=== PATIENT | female | born 1995 | race Native Hawaiian/Other Pacific Islander ===

== ENCOUNTER 2021-09-18 14:01 | Emergency (ER) | payer OTHER, SELFPAY ==
[2021-09-18 14:13] VITALS: BP 115/72; PULSE 74; RESP 16; TEMP 36.7; O2SAT 97; BMI 32.9
--- NOTE | 2021-09-18 14:32 | CRLHL7_ITS ---
For Patients: As a result of the Century Cures Act, medical imaging exams and procedure reports are released immediately into your electronic medical record. You may view this report before your referring provider. If you have questions, please contact your health care provider. INDICATION: 38 WEEKS , DUE 10/02/21, FELL DOWN STAIRS. R/O ABRUPTION/TRAUMA TO COMPARISON: 08/23/2021 TECHNIQUE: Limited real time dumont scale imaging of the fetus was performed. FINDINGS: Sonographic imaging demonstrates a single living intrauterine gestation. Fetus demonstrates a regular cardiac rate of 146 beats per minute. Fetus has a vertex position. The placenta lies right posterior. Amniotic fluid volume appears normal and there is a single deepest vertical pocket: 3.5 cm. IMPRESSION: No evidence of placental abruption. Dictated by Heri Astudillo MD @ 09/18/2021 3:46:21 PM (Electronically Signed)
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
[2021-09-18 16:35] VITALS: BP 117/72; PULSE 71; RESP 16; O2SAT 98
== END 2021-09-18 16:48 | disposition home or self-care (01) ==
PROVIDERS: Emergency Provider Family Medicine
DX: S39.91XA Unspecified injury of abdomen, initial encounter (principal); Z3A.37 37 weeks gestation of pregnancy; W10.9XXA Fall (on) (from) unspecified stairs and steps, initial encounter
CPT/HCPCS: 76815; 99283; 99284

== ENCOUNTER 2021-09-23 20:51 | Inpatient (IN) | payer OTHER, SELFPAY ==
[2021-09-23] VITALS (16 sets, daily range): BP systolic 117–134; BP diastolic 57–80; PULSE 55–96; RESP 16–18; TEMP 36.8; O2SAT 99; BMI 36.4
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
[2021-09-23 21:48] LABS: SARS PCR* Negative SARS-CoV-2 (Negative)
--- NOTE | 2021-09-23 22:36 | PM.OBPRCVD ---
Procedure Delivery date: 09/23/21 Procedure Done: Global Events: Covid Infection in Intrapartal Events: Other (shoulder dystocia: 45 seconds) Delivery monitor: external FHT Route of delivery: Laceration description: Perineal - 1st Degree Delivery repair: other (none needed) Estimated blood loss (mL): 25 Anesthesia type: None Disposition: floor Narrative: Ava is a 25-year-old 3 para 1011 admitted at 38 weeks 5 days gestation with spontaneous onset of labor. On admission she was 7 cm dilated with bulging bag of water. She declined artificial rupture of membranes. Spontaneous rupture membranes occurred at 9:27 p.m. with clear fluid noted. Anesthesia: None Augmentation: None Labor onset: 09/23/2020 at 6:30 p.m. Complete dilation on 09/23/2020 at 9:55 p.m. Pushing started at 9:55 p.m. on 09/23/2020 heart rate during 2nd stage: Category 2 and reassuring. The infant's head delivered at 10:02 p.m. with delivery of the body at 10:03 p.m. Shoulder dystocia occurred which was relieved with Carrillo King positioning and delivery of the posterior shoulder. Total time of dystocia 45 seconds. The infant's cord was immediately clamped and cut and the taken to the warmer for stabilization. There were no nuchal cords. Apgars: 8 at 1 minute, 9 at 5 minutes, respectively. The infant was handed back to the mother for skin to skin contact before the 5 minute . Weight: 8#8oz = LGA. Laceration: First-degree perineal that did not require repair. Blood loss: 25 mL, estimated. Mother and infant were stable at the time of this note. Ava is planning on breast-feeding. Infant Infant Gender: Male presentation: vertex Placental Delivery Description: Spontaneous Cord Description: 3 Vessels OB Vag Delivery Procedures Additional Procedures ECV: No Cook Catheter Insertion: No NST: No D&C: No Laceration Repair: No Tubal Ligation : No Other: No
[2021-09-24] VITALS (10 sets, daily range): BP systolic 101–121; BP diastolic 65–81; PULSE 55–92; RESP 16–18; TEMP 36.6–36.9; O2SAT 98–99
[2021-09-24] MEDS: IBUPROFEN 600 MG TABLET PO ×4 (00:38→18:10)
[2021-09-24] MEDS: OXYTOCIN 10 UNIT/ML INJ IM (00:40)
[2021-09-24] MEDS: LIDOCAINE 1 % PF 30 ML INJECTION (00:40)
[2021-09-24] MEDS: ACETAMINOPHEN 500 MG TABLET 1000 MG PO ×4 (03:40→21:56)
[2021-09-24 07:02] LABS: Hemoglobin* 10.7 gm/dL (12.0-16.0)
--- NOTE | 2021-09-24 07:47 | PM.OBPNVD1 ---
OB - PN:Subj Subjective Date Seen: 09/24/21 Interval history: Ava is a 25yo status post vaginal delivery at 38 5/7 weeks gestation on 09/23. The patient feels well. She has no new complaints. Urinary output is adequate and she is voiding without difficulty. Has Small amount of rubra lochia. She is ambulating well. Patient comments OB post-: no complaints, pain well controlled, perineal pain (Tenderness), tolerating diet and flatus present [place] infant status: and doing well feeding status: exclusively OB - PN: Obj Exam Physical Exam: Vital signs: Temp Pulse Resp BP Pulse Ox 98.4 F 55 L 16 116/78 98 09/24/21 07:24 09/24/21 07:24 09/24/21 07:24 09/24/21 07:24 09/24/21 07:24 Constitutional: Constitutional: no acute distress Routine HEENT Exam: Head: Present atraumatic and normal inspection Routine Neck Exam: Neck: Present full ROM Routine Respiratory Exam: Respiratory: Present CTA bilaterally Routine Cardiovascular Exam: Cardiovascular: Present RRR Routine Abdominal Exam: Abdominal: Present normal bowel sounds and soft Fundus: Present firm (u/u) Routine Extremities Exam: Extremities: Present normal inspection Routine Skin Exam: Skin: Present intact Routine Psychiatric Exam: Psychiatric: Present normal affect and normal thought process OB - PN: Obj Data Labs Labs: Laboratory Results - last 24 hr 09/23/21 09/24/21 20:29 06:51 Hgb 10.7 L SARS-CoV-2 (PCR) Negative SARS-CoV-2 OB - PN: A/P Vaginal Delivery Assessment and Plan (1) care and examination immediately after delivery: Status: Acute (2) Status post vaginal delivery: Status: Acute (3) Lactating mother: Status: Acute Plan 1. Continue routine postoperative cares. 2. May see if desired. 3. Anticipate discharge tomorrow Plan day: 1 Plan: routine care
[2021-09-24] MEDS: DOCUSATE SODIUM 100 MG CAPSULE PO (21:56)
[2021-09-25 00:54] VITALS: BP 97/50; PULSE 60; RESP 14; TEMP 36.6; O2SAT 96
[2021-09-25] MEDS: IBUPROFEN 600 MG TABLET PO (01:19)
[2021-09-25] MEDS: ACETAMINOPHEN 500 MG TABLET 1000 MG PO ×2 (04:12→10:12)
--- NOTE | 2021-09-25 07:55 | PM.OBDSVD1 ---
DS: Providers Provider Time Seen by Provider: 08:11 Date Seen: 09/25/21 Date of admission: 09/23/21 20:51 Primary care physician: Not a Local Provider Admitting Clinician: Rhina Moralez MD Attending Physician on discharge: Rhina Moralez MD Date of Discharge: 09/25/21 DS: Diagnosis Discharge Diagnosis (1) care and examination immediately after delivery: Status: Acute (2) Status post vaginal delivery: Status: Acute (3) Lactating mother: Status: Acute Exam Const: Vital Signs, click to edit/add: Vital Signs - 24 hr 09/24/21 12:04 09/24/21 16:10 09/24/21 19:27 Temperature 97.8 F 98.4 F 97.8 F Pulse Rate [Pulse Oximeter] 84 88 Respiratory Rate 16 16 16 Blood Pressure [Ri ght Arm] 116/81 121/80 101/71 Pulse Oximetry 99 98 09/25/21 00:54 Temperature 97.9 F Pulse Rate [Pulse Oximeter] 60 Respiratory Rate 14 Blood Pressure [Ri ght Arm] 97/50 L Pulse Oximetry 96 Documenting provider has reviewed patient's vital signs: yes Common normals: no apparent distress, average body habitus, oriented x3, no limitations, healthy appearing, alert and well nourished General appearance: cooperative HENMT: Common normals: normocephalic Head and scalp: normocephalic Neck & C-Spine: Common normals: full ROM Chest: Common normals: inspection of chest normal Chest: symmetrical chest wall rise Resp: Common normals: normal respiratory effort, no retractions, no use of accessory muscles and clear to auscultation bilaterally Auscultation: clear to auscultation bilaterally Cardio: Common normals: regular rate and regular rhythm Rate: regular rate Rhythm: regular rhythm GI: Common normals: Normal to inspection, nondistended, normoactive bowel sounds present and soft to palpation Palpation: soft : Uterus: U/U Lochia: small Extremity: Common normals: normal to inspection, full ROM and no pedal edema Neuro: Common normals: oriented x3 Sensorium/orientation: alert OB - DS: Summary Hospital Course Hospital Course: The patient is a 25 year old G 3 P 2 at 38.6 weeks gestation that was admitted to the Center on 09/23/21 for labor. She had a vaginal delivery complicated by a shoulder dystocia. She delivered a viable male infant. She is breast feeding, which she states is going well. the patient has done well. She is planning paertner vasectomy or tubal ligation for PP control. Peripartum Data delivery method: Vaginal Laceration description: Vaginal - 1st Degree complications: none [place] Gender: Male Status at Discharge Functional status at discharge: independent ambulation Overall status at discharge: patient is back to baseline Time Spent with Patient Time attestation: Total time spent providing and/or coordinating discharge services: Time spent: Less than 30 minutes Discharge Plan Discharge Disposition: Home, Self-Care Date of Admission: 09/23/21 20:51 Attending Provider on Discharge: Elva Chawla Primary Care Provider: Provider,Not a Local Condition: Stable Anticipated Discharge Date/Time: 09/25/21 12:00 Discharge Medications: New docusate sodium 100 mg Capsule 100 mg PO BID PRN (Reason: constipation) 30 Days Qty: 100 0RF ibuprofen 600 mg Tablet 600 mg PO Q6H PRN10 Days Qty: 30 0RF Continued prenat.vits,jaylon,rre-rstr-jcyxv Tablet 1 tab PO QDAY 0RF Discontinued ferrous sulfate 325 mg (65 mg iron) tablet 325 mg PO QDAY 0RF Discharge Orders: Discharge Order (Routine); Ordered 09/23/21 Ordered By: Rhina Moralez Patient Education: OB Over the Counter Medication Information, OB Vaginal/Breast Feeding Activity Restrictions/Additional Instructions: Discharge instructions were reviewed with the patient including signs and symptoms of infection and home going medications. Lifting Restrictions: none Off Work or School for 6 weeks. Symptoms to report to doctor: -Bleeding that saturates more than one pad per hour ?-Passing clots larger than the size of a golf ball ?-Pain not relieved by prescribed medication ?-Fever above 100.4 degrees Fahrenheit ?-A foul vaginal odor ?-Difficulty in emotions, mood and functions ?-Thoughts of hurting yourself and/or ?-Painful, reddened area in your breast ?-Any drainage, redness or tenderness in your IV/epidural site ?-Severe headache that doesn't improve after taking medications ?-Changes in vision, including temporary loss of vision, blurred vision, and/or light sensitivity ?-Upper abdominal pain (usually under ribs on the right side) ?-Decrease in urination or painful, frequent urinating ?-Chest pain ?-Shortness of breath ?-Tenderness or pain with redness and/swelling in the calf(s) of your leg Follow Up with any Women's Health Provider in 2 weeks (optional visit) and in 6 weeks (physical exam) at any [facility] Clinic Location. consultation services are available to all mothers and babies for the first year after delivery.? To make an appointment, please call [phone]. Activity Level: Activity as Tolerated Discharge Diet: Regular Follow Up Appointments: Rhina Moralez MD [Staff Physician] - Provider,Not a Local [Primary Care Provider] - None (To any Women's Health Provider at 2 and 6 weeks .) Forms: [email or web address] Info Instructions
[2021-09-25 07:59] VITALS: BP 114/77; PULSE 60; RESP 16; TEMP 36.6; O2SAT 97
--- OUTSIDE RECORDS SUMMARY | 2021-10-01 16:48 | XMS_ITS | Encounter Summary ---
:1995 Author Organization [place] Address [address] [place] [address] Care Team Providers Name Role Phone No Ref-Primary Primary Care Provider Deandre Ramos APRN CN Unavailable Encounter Details Date Type Department Care Team Description 11/02/2020 Travel Social History Tobacco Use Types Packs/Day Years Used Date Never Smoker Smokeless Tobacco: Never Used Alcohol Use Standard Drinks/Week Comments No 0 (1 standard drink = 0.6 oz pure alcoho l) Education Answer Date Recorded What is the highest level of school you have Some college, n o degree 10/16/2020 completed or the highest degree you have received? Sex Assigned at Date Recorded Female 10/01/2020 10:47 AM CDT COVID-19 Exposure Response Date Recorded In the last month, have you been in contact with No / Unsure 11/02/2020 8:59 AM CDT someone who was confirmed or suspected to have Coronavirus / COVID-19? documented as of this encounter Plan of Treatment Not on filedocumented as of this encounter Visit Diagnoses Not on filedocumented in this encounter Additional Health Concerns Assessment Noted Time PHQ-9 Depression Total Score: 01/27/2019 9:[address] documented as of this encounter Care Teams Staff Anesthetist Relationship Specialty Start Date End Date No Ref-Primary, Physician PCP - General 02/23/14 Elva Ramos, VAUGHN CNM Assigned OBGYN Provider 07/01/20 11/10/20 [address] [place] [id number] documented as of this encounter
--- OUTSIDE RECORDS SUMMARY | 2021-10-01 16:48 | XMS_ITS | Encounter Summary ---
:1995 Author Organization [employer] Address [facility] [place] [address] Care Team Providers Name Role Phone No Ref-Primary Primary Care Provider Jay Sapp MD Unavailable Encounter Details Date Type Department Care Team Description 12/17/2020 Telephone [facility] Women[facility] Joanne Sadler MD [facility] [address] [facility] [address] [place] [address] [facility] [address] [place] [address] [phone] Social History Tobacco Use Types Packs/Day Years [...] Date Recorded Female 10/01/2020 10:47 AM CDT documented as of this encounter Miscellaneous Notes Telephone Encounter - Kirstin Menchaca RN - 12/17/2020 1:21 PM CDT A user error has taken place: encounter opened in error, closed for administrative reasons. documented in this encounter Plan of Treatment Not on filedocumented as of this encounter Visit Diagnoses Not on filedocumented in this encounter Additional Health Concerns Assessment Noted Time PHQ-9 Depression Total Score: 11 01/27/2019 9:[address] documented as of this encounter Care Teams Lacrosse Coach Relationship Specialty Start Date End Date No Ref-Primary, Physician PCP - General 02/23/14 Nicolasa Sapp MD Assigned OBGYN Provider 11/11/20 [address] [place] [address] documented as of this encounter
--- OUTSIDE RECORDS SUMMARY | 2021-10-01 16:48 | XMS_ITS | Encounter Summary ---
:1995 Author Organization [place] Address [facility] [place] [address] Care Team Providers Name Role Phone No Ref-Primary Primary Care Provider Jay Sapp MD Unavailable Reason for Visit Reason Onset Date Comments Patient Request for Note/Letter 12/17/2020 Encounter Details Date Type Department Care Team Description 12/17/2020 [facility] Nicolasa Sapp Patient Request for Women[facility] Clinic MD Jay Note/Letter [place] [address] [facility] [address] [place], [place] [address] [address] [place], [place] [phone] (Wo rk) [address] [phone] Social History Tobacco Use Types Packs/Day Years [...] Encounter - Kirstin Menchaca RN - 12/17/2020 2:21 PM CDT Letter written. Pt will be able to view it on my chart. Kirstin Fermin RN Telephone Encounter - Nicolasa Sapp MD - 12/17/2020 2:15 PM CDT Ok to generate letter. Telephone Encounter - Kirstin Menchaca RN - 12/17/2020 1:21 PM CDT Pt calling. She had a suction D&C on 11/05/20. pts had to miss work to drive her to and from surgery and be with her after surgery. He needs a letter for his employer stating that he missed work on 11/05/20 due to assisting his with a medical procedure. pts husbands name is: Ruslan Myers Pt will be able to view the letter on my chart. Kirstin Fermin RN documented in this encounter Plan of Treatment Not on filedocumented as of this encounter Visit Diagnoses Not on filedocumented in this encounter Additional Health Concerns Assessment Noted Time PHQ-9 Depression Total Score: 11 01/27/2019 9:[address] documented as of this encounter Care Teams Information And Data Architect Analyst Relationship Specialty Start Date End Date No Ref-Primary, Physician PCP - General 02/23/14 Nicolasa Sapp MD Assigned OBGYN Provider 11/11/20 [address] [place] [address] documented as of this encounter
--- OUTSIDE RECORDS SUMMARY | 2021-10-01 16:48 | XMS_ITS | Encounter Summary ---
:1995 Author Organization [facility] Address [address] [place] [address] Care Team Providers Name Role Phone No Ref-Primary Primary Care Provider Deandre Ramos APRN CNM Unavailable Encounter Details Date Type Department Care Team Description 10/24/2020 [facility] Maximilian locke for supervision of [place] [facility] other normal in [address] [place] [address] Social History Tobacco Use Types Packs/Day Years [...] been in contact with No / Unsure 10/24/2020 12:23 PM CDT someone who was confirmed or suspected to have Coronavirus / COVID-19? documented as of this encounter Miscellaneous Notes Addendum Note - Javier Velazquez - 10/24/2020 12:45 PM CDT Addended by: JAVIER VELAZQUEZ on: 10/26/2020 08:45 AM Modules accepted: Orders documented in this encounter Plan of Treatment Not on filedocumented as of this encounter Procedures Procedure Name Priority Date/Time Associated Diagnosis Comme nts TYPE AND SCREEN, Routine 10/24/2020 1:14 PM Encounter for Res ults for this ADULT CDT supervision of other procedu re are in normal in the resu lts first trimester section. RUBELLA ANTIBODY Routine 10/24/2020 1:14 PM Encounter for Res ults for this IGG CDT supervision of other procedu re are in normal in the resu lts first trimester section. HIV ANTIGEN Routine 10/24/2020 1:14 PM Encounter for Results for this ANTIBODY COMBO CDT supervision of other proce dure are in normal in the resu lts first trimester section. TREPONEMA ABS W Routine 10/24/2020 1:14 PM Encounter for Resu lts for this REFLEX TO RPR AND CDT supervision of other pr ocedure are in TITER normal in the resu lts first trimester section. TSH WITH FREE T4 Routine 10/24/2020 1:14 PM Encounter for Res ults for this REFLEX CDT supervision of other procedu re are in normal in the resu lts first trimester section. HEPATITIS C Routine 10/24/2020 1:14 PM Encounter for Results for this ANTIBODY CDT supervision of other procedu re are in normal in the resu lts first trimester section. HEPATITIS B SURFACE Routine 10/24/2020 1:14 PM Encounter for Results for this ANTIGEN CDT supervision of other procedu re are in normal in the resu lts first trimester section. ABO/RH TYPE AND Routine 10/24/2020 1:14 PM Encounter for Resu lts for this SCREEN CDT supervision of other procedu re are in normal in the resu lts first trimester section. documented in this encounter Results Urine Culture (10/29/2020 11:12 AM CDT) P athologist Signature Culture No Growth SANDRO 10/30/2020 [facility] IDD 4:57 PM CDT LABORATORY Specimen Anatomical Collection Method Collection Time Receive d Time (Source) Location / / Volume Laterality Urine MID-STREAM URINE Non-blood 10/29/2020 11:12 021 SAMPLE / Unknown Collection / AM CDT 11:12 AM CD T Unknown Nicolasa Sapp MD LAB - MICRO GENERAL ORDERABL ES Performing Organization Address City/State/ZIP Code Phon e Number [facility] LABORATORY [facility] [place] [phone] Diag. Lab 500 [facility], Room D297 [facility] LABORATORY [facility] Infectious [place], [place] [phone] Diseases Diagnostic [phone], [facility] Lab (IDDL) 420 [facility], Room D297 Adult Type and Screen (10/24/2020 1:14 PM CDT) Patholo gist Method Time Signature ABO/RH(D) AB POS 10/24/2020 RH BLOOD 12:00 AM BANK CDT Antibody Negative Negative 10/24/2020 RH BLOOD Screen 12:00 AM BANK CDT SPECIMEN [id number] 10/24/2020 RH BLOOD EXPIRATION 12:00 AM BANK DATE CDT Specimen Anatomical Collection Method / Collection Time Recei nas Time (Source) Location / Volume Laterality Blood STRUCTURE OF RIGHT Venipuncture / 10/24/2020 1:14 01/2021 UPPER LIMB / Unknown PM CDT 1:15 PM CDT Unknown Nicolasa Sapp MD LAB - BLOOD BANK TEST ORDER Performing Organization Address City/[facility]/ZIP Code Phon e Number RH BLOOD BANK [address] [place] [address] TSH with free T4 reflex (10/24/2020 1:14 PM CDT) P athologist Signature TSH 2.44 0.40 - 4.00 10/25/2020 OX LABORATORY mU/L 9:56 AM CDT Specimen Anatomical Collection Method / Collection Time Recei nas Time (Source) Location / Volume Laterality Blood STRUCTURE OF RIGHT Venipuncture / 10/24/2020 1:14 01/2021 UPPER LIMB / Unknown PM CDT 1:15 PM CDT Unknown Nicolasa Sapp MD LAB - BLOOD ORDERABLES Performing Organization Address City/State/ZIP Code Phon e Number OX LABORATORY [facility] [place], [place] [phone] [place] [facility] [address] Lab (no room number, 1st floor of clinic) OX LABORATORY [place], [place] [phone] [facility] [place] [phone] [place] [facility] [address] Lab (no room number, 1st floor of clinic) Hepatitis C antibody (10/24/2020 1:14 PM CDT) Patholo gist Method Time Signature Hepatitis C Nonreactive Nonreactive 10/25/2020 [facility] Antibody 11:19 AM CDT SPECIALTY CORE Specimen Anatomical Collection Method / Collection Time Recei nas Time (Source) Location / Volume Laterality Blood STRUCTURE OF RIGHT Venipuncture / 10/24/2020 1:14 01/2021 UPPER LIMB / Unknown PM CDT 1:15 PM CDT Unknown Narrative [facility] - 10/25/2020 11:1 9 AM CDT Assay performance characteristics have n ot been established for newborns, infants, and children. Nicolasa Sapp MD LAB - BLOOD ORDERABLES Performing Organization Address City/State/ZIP Code Phon e [place] [address] CORE/PROT/ENDO Core/Prot/Endo 500 [facility], Room [address] [facility] Specialty Core [place], [place] [facility] [phone], Room L271-5 Treponema Abs w Reflex to RPR and Titer (10/24/2020 1:14 PM CDT) Patholo gist Method Time Signature Treponema Nonreactive Nonreactive 10/25/2020 [facility] Antibody 9:22 AM CDT SPECIALTY Total CORE Specimen Anatomical Collection Method / Collection Time Recei nas Time (Source) Location / Volume Laterality Blood STRUCTURE OF RIGHT Venipuncture / 10/24/2020 1:14 01/2021 UPPER LIMB / Unknown PM CDT 1:15 PM CDT Unknown Nicolasa Sapp MD LAB - BLOOD ORDERABLES Performing Organization Address City/State/ZIP Code Phon e [place] [address] CORE/PROT/ENDO Core/Prot/Endo 500 [facility] [address] Building, Room 3-580 [facility] SPECIALTY [facility] [place] Lab [address], [facility] 420 [facility], Room L271-5 (ABNORMAL) Rubella Antibody IgG Quantitative (10/24/2020 1:14 PM CDT) [facility] Method Time Signature Rubella Naomie 8.38 (H) <0.90 Index 10/25/2020 [facility] IgG Instrument 9:58 AM CDT SPECIALTY Value CORE Rubella Positive (A) Negative 10/25/2020 [facility] Antibody IgG 9:58 AM CDT SPECIALTY CORE Comment: Suggests previous exposure or i mmunization and probable immunity. Specimen Anatomical Collection Method / Collection Time Recei nas Time (Source) Location / Volume Laterality Blood STRUCTURE OF RIGHT Venipuncture / 10/24/2020 1:14 01/2021 UPPER LIMB / Unknown PM CDT 1:15 PM CDT Unknown Nicolasa Sapp MD LAB - BLOOD ORDERABLES Performing Organization Address City/State/ZIP Code Phon e [place] [address] CORE/PROT/ENDO Core/Prot/Endo 500 [facility] Building, Room 3-580 [facility] Specialty [place], [place] [phone] Lab [phone], [facility] 420 [facility], Room L271-5 HIV Antigen Antibody Combo (10/24/2020 1:14 PM CDT) [employer] Method Time Signature HIV Antigen Nonreactive Nonreactive 10/25/2020 [facility] Antibody 11:19 AM CDT SPECIALTY Combo CORE Comment: HIV-1 p24 Ag & HIV-1/HIV-2 Ab N ot Detected Specimen Anatomical Collection Method / Collection Time Recei nas Time (Source) Location / Volume Laterality Blood STRUCTURE OF RIGHT Venipuncture / 10/24/2020 1:14 01/2021 UPPER LIMB / Unknown PM CDT 1:15 PM CDT Unknown Nicolasa Sapp MD LAB - BLOOD ORDERABLES Performing Organization Address City/[facility]/ZIP Code Phon e Number [place] [phone] CORE/PROT/ENDO Core/Prot/Endo 500 [facility], Room 3[address] [place] [address] [place] Lab [address], [facility] 420 [facility], Room L271-5 Hepatitis B surface antigen (10/24/2020 1:14 PM CDT) [facility] gist Method Time Signature Hepatitis B Nonreactive Nonreactive 10/25/2020 [facility] 11:19 AM CDT SPECIALTY Antigen CORE Specimen Anatomical Collection Method / Collection Time Recei nas Time (Source) Location / Volume Laterality Blood STRUCTURE OF RIGHT Venipuncture / 10/24/2020 1:14 01/2021 UPPER LIMB / Unknown PM CDT 1:15 PM CDT Unknown Nicolasa Sapp MD LAB - BLOOD ORDERABLES Performing Organization Address City/[facility]/ZIP Code Phon e Number [place] [phone] CORE/PROT/ENDO Core/Prot/Endo 500 [facility], Room 3-580 [facility] [place] Lab [address], [facility] 420 [facility], Room L271-5 documented in this encounter Visit Diagnoses Diagnosis Encounter for supervision of other maryjo aguilera in first trimester documented in this encounter Additional Health Concerns Assessment Noted Time PHQ-9 Depression Total Score: 01/27/2019 9:[address] documented as of this encounter Care Teams Photography Colorist Relationship Specialty Start Date End Date No Ref-Primary, Physician PCP - General 02/23/14 Elva Ramos APRN CNM Assigned OBGYN Provider 07/01/20 11/10/20 [address] [place] [address] documented as of this encounter
--- OUTSIDE RECORDS SUMMARY | 2021-10-01 16:48 | XMS_ITS | Encounter Summary ---
:1997 Author Organization [place] Address [facility] [place] [address] Care Team Providers Name Role Phone No Ref-Primary Primary Care Provider Deandre Ramos APRN CNM Unavailable Reason for Visit Reason Onset Date Comments Care 10/26/2020 Encounter Details Date Type Department Care Team Description 10/26/2020 Telephone [facility] Women's Nicolasa Sapp, Care Clinic [place] [address] [place] [address] [facility] [address] [place] [address] [place] [address] [phone] Social History Tobacco Use Types Packs/Day Years [...] been in contact with No / Unsure 10/30/2020 8:52 AM CDT someone who was confirmed or suspected to have Coronavirus / COVID-19? documented as of this encounter Miscellaneous Notes Telephone Encounter - Nicolasa Sapp MD - 10/30/2020 12:17 PM CDT Final US report not in yet. Upon my review of images I do not see a heartbeat. I called patient and discussed likely diagnosis of missed/incomplete AB. She has follow-up on Thursday with me to discuss next steps. Gave precautions for heavy bleeding. Currently she is only spotting. Nicolasa Sapp MD, MPH [facility] independent producer Telephone Encounter - Kirstin Menchaca RN - 10/30/2020 10:39 AM CDT Please see US results. Pt is unaware of the results and would like a phone call to discuss. Kirstin Fermin RN Telephone Encounter - Kirstin Menchaca RN - 10/30/2020 7:[address] Jay Sapp, please see hcg quant levels and advise of appropriate f/u. The orders were placed under Dr. Harrison, as he was on-call Thursday. Pt is scheduled to have an US today. Kirstin Fermin RN Telephone Encounter - Nicolasa Sapp MD - 10/26/2020 2:40 PM CDT Agree with the plan. Certainly at risk for miscarriage with her last ultrasound. Telephone Encounter - Kirstin Menchaca RN - 10/26/2020 1:52 PM CDT Pt calling. She is still having some vag spotting, which has been going on for about 4 days. For the last 2 days she has been noticing some tiny tissue like particles coming out of her vagina. States they are very tiny. Pt is very anxious since her last US showed a low FHR and her dates were off. Pt is scheduled for a f/u US on 10/30. Pt will have an hcg quant done at the [facility] walk in lab tomorrow am between 9-12 and then have anotherquant checked on Thursday am at the BV clinic. I ordered the hcg quant for tomorrow under the on-call provider. I did advise the pt to call back at any time with any questions/concerns. Routed to Dr. Harrison as an FYI for tomorrow's results. Pt is AB pos. Kirstin eFrmin RN documented in this encounter Plan of Treatment Scheduled Orders Name Type Priority Associated Diagnoses Order S chedule HCG quantitative Lab STAT Threatened miscarriage 4 Occurrences starting in early until 10/26/2021, 2 c ompleted documented as of this encounter Results (ABNORMAL) HCG quantitative (10/29/2020 11:08 AM CDT) [facility] [employer] Method Time Signature hCG Quantitative 36,252 0 - 5 10/29/2020 [facility] LABORATOR Y (H) IU/L 12:18 PM CDT Comment: Adult: 0-5 IU/L for healthy non- person Neonates: Should be within normal ranges by 2 days after Specimen Anatomical Collection Method / Collection Time Recei nas Time (Source) Location / Volume Laterality Blood STRUCTURE OF LEFT Venipuncture / 10/29/2020 11:08 10/14 UPPER LIMB / Unknown AM CDT 11:08 AM CDT Unknown Kelvin Harrison MD LAB - BLOOD ORDERABLES Performing Organization Address City/State/ZIP [place] [phone] Care Lab [address] Lab (1st floor, no room number) (ABNORMAL) HCG quantitative (10/27/2020 10:52 AM CDT) [facility] gist Method Time Signature hCG Quantitative 35,217 0 - 5 10/27/2020 [facility] LABORATOR Y (H) IU/L 11:36 AM CDT Comment: Adult: 0-5 IU/L for healthy non- person Neonates: Should be within normal ranges by 2 days after Specimen Anatomical Collection Method / Collection Time Recei nas Time (Source) Location / Volume Laterality Blood STRUCTURE OF RIGHT Venipuncture / 10/27/2020 10:52 UPPER LIMB / Unknown AM CDT 10:53 AM CDT Unknown Kelvin Harrison MD LAB - BLOOD ORDERABLES Performing Organization Address City/State/ZIP Code Ph[place] [address] Care Lab [address] Lab (1st floor, no room number) documented in this encounter Visit Diagnoses Diagnosis Threatened miscarriage in early pregnanc y - Primary Threatened , unspecified as to e pisode of care documented in this encounter Additional Health Concerns Assessment Noted Time PHQ-9 Depression Total Score: 11 01/27/2019 9:[address] documented as of this encounter Care Teams Railway Signal Operator Relationship Specialty Start Date End Date No Ref-Primary, Physician PCP - General 02/23/14 Elva Ramos APRN CNM Assigned OBGYN Provider 07/01/20 11/10/20 [address] [place] [id number] documented as of this encounter
--- OUTSIDE RECORDS SUMMARY | 2021-10-01 16:48 | XMS_ITS | Encounter Summary ---
:1997 Author Organization [place] Address [address] [place] [address] Care Team Providers Name Role Phone No Ref-Primary Primary Care Provider Deandre Ramos APRN CNM Unavailable Encounter Details Date Type Department Care Team Description 10/29/2020 Lab [facility] Maximilian locke for supervision of other normal in first trimester; [facility] Threatened miscarriage in ea [place]ly [address] [place] [address] Social History Tobacco Use [...] been in contact with No / Unsure 10/29/2020 11:02 AM CDT someone who was confirmed or suspected to have Coronavirus / COVID-19? documented as of this encounter Plan of Treatment Not on filedocumented as of this encounter Procedures Procedure Name Priority Date/Time Associated Diagnosis Comme nts URINE CULTURE Routine 10/29/2020 11:12 Encounter for Results f or this AM CDT supervision of other procedu re are in normal in the resu lts first trimester section. HCG QUANTITATIVE STAT 10/29/2020 11:08 Threatened Results for this AM CDT miscarriage in early procedu re are in the results section. documented in this encounter Results Urine [...] MICRO GENERAL ORDERABL ES Performing Organization Address City/[facility]/ZIP Code Phon e Number [facility]U IDD LABORATORY [facility] [place] [phone]. Lab [address] [facility], Room [address]297 [facility] IDD LABORATORY [facility] Infectious [place], [place] [phone] Diseases Diagnostic [phone], [facility] Lab (IDDL) 420 [facility], Room D297 (ABNORMAL) HCG quantitative (10/29/2020 11:08 AM CDT) Patholo gist Method Time Signature hCG Quantitative 36,252 0 - 5 10/29/2020 RH LABORATOR Y (H) IU/L 12:18 PM CDT Comment: Adult: 0-5 IU/L for healthy non- person Neonates: Should be within normal ranges by 2 days after Specimen Anatomical Collection Method / Collection Time Recei nas Time (Source) Location / Volume Laterality Blood STRUCTURE OF LEFT Venipuncture / 10/29/2020 11:08 08/08/2020 UPPER LIMB / Unknown AM CDT 11:08 AM CDT Unknown Kelvin Harrison MD LAB - BLOOD ORDERABLES Performing Organization Address City/[facility]/ZIP Code Phon [place] [phone] Care Lab [address] Lab (1st floor, no room number) documented in this encounter Visit Diagnoses Diagnosis Encounter for supervision of other maryjo aguilera in first trimester Threatened miscarriage in early pregnanc y Threatened , unspecified as to e pisode of care documented in this encounter Additional Health Concerns Assessment Noted Time PHQ-9 Depression Total Score: 11 01/27/2019 9:[address] documented as of this encounter Care Teams Rn Admit Relationship Specialty Start Date End Date No Ref-Primary, Physician PCP - General 02/23/14 Elva Ramos, VAUGHN CNM Assigned OBGYN Provider 07/01/20 11/10/20 [address] [place] [address] documented as of this encounter
--- OUTSIDE RECORDS SUMMARY | 2021-10-01 16:48 | XMS_ITS | Encounter Summary ---
:1995 Author Organization [place] Address [address] [place] [address] Care Team Providers Name Role Phone No Ref-Primary Primary Care Provider Deandre Ramos APRN CN Unavailable Encounter Details Date Type Department Care Team Description 10/27/2020 Travel Social History Tobacco Use Types Packs/Day [...] month, have you been in contact with Yes 10/27/2020 10:43 AM CDT someone who was confirmed or suspected to have Coronavirus / COVID-19? documented as of this encounter Plan of Treatment Not on filedocumented as of this encounter Visit Diagnoses Not on filedocumented in this encounter Additional Health Concerns Assessment Noted Time PHQ-9 Depression Total Score: 11 01/27/2019 9:[address] documented as of this encounter Care Teams Gis Database Administrator Relationship Specialty Start Date End Date No Ref-Primary, Physician PCP - General 02/23/14 Elva Ramos APRN CNM Assigned OBGYN Provider 07/01/20 11/10/20 [address] [place] [address] documented as of this encounter
--- OUTSIDE RECORDS SUMMARY | 2021-10-01 16:48 | XMS_ITS | Encounter Summary ---
:1997 Author Organization [place] Address [facility] [place] [address] Care Team Providers Name Role Phone No Ref-Primary Primary Care Provider Deandre Ramos APRN CNM Unavailable Encounter Details Date Type Department Care Team Description 10/09/2020 Travel Social History Tobacco Use Types Packs/Day Years Used Date Never Smoker Smokeless Tobacco: Never Used Alcohol Use Standard Drinks/Week Comments No 0 (1 standard drink = 0.6 oz pure alcoho l) Sex Assigned at Date Recorded Female 10/01/2020 10:47 AM CDT COVID-19 Exposure Response Date Recorded In the last month, have you been in contact Unable to assess 10/09/2020 5:12 PM CDT with someone who was confirmed or suspected to have Coronavirus / COVID-19? documented as of this encounter Plan of Treatment Not on filedocumented as of this encounter Visit Diagnoses Not on filedocumented in this encounter Additional Health Concerns Assessment Noted Time PHQ-9 Depression Total Score: 01/27/2019 9:[address] documented as of this encounter Care Teams Crawler Dragline Operator Relationship Specialty Start Date End Date No Ref-Primary, Physician PCP - General 02/23/14 Elva Ramos APRN CNM Assigned OBGYN Provider 07/01/20 11/10/20 [address] [place] [address] documented as of this encounter
--- OUTSIDE RECORDS SUMMARY | 2021-10-01 16:48 | XMS_ITS | Encounter Summary ---
:1995 Author Organization [place] Address [facility] [place] [address] Care Team Providers Name Role Phone No Ref-Primary Primary Care Provider Deandre Ramos APRN CNM Unavailable Reason for Visit Reason Comments Miscarriage next steps Encounter Details Date Type Department Care Team Description 11/02/2020 Office Visit [facility] Se[place] Nicolasa Miscarri age (Primary [facility] MD Jay Dx) [place] [id number] [place] [address] [address] [place], [place] [address] [address] [place], [place] (Work) [address] [phone] Social History Tobacco Use Types Packs/Day Years Used Date Never Smoker Smokeless Tobacco: Never Used Tobacco Cessation: Counseling Given: No Alcohol Use Standard Drinks/Week Comments No 0 [...] / COVID-19? documented as of this encounter Last Filed Vital Signs Vital Sign Reading Time Taken Comments Blood Pressure 92/60 11/02/2020 9:06 AM CDT Pulse - - Temperature - - Respiratory Rate - - Oxygen Saturation - - Inhaled Oxygen Concentration - - Weight 65.8 kg (145 lb) 11/02/2020 9:06 AM CDT Height 157.5 cm (5' 2) 11/02/2020 9:06 AM CDT Body Mass Index 26.52 11/02/2020 9:06 AM CDT documented in this encounter Progress Notes Nicolasa Sapp MD - 11/02/2020 9:00 AM CDT SUBJECTIVE: CC: Patient presents with: Miscarriage: next steps HPI: Ava Parker is a 24 year old with miscarriage diagnosed on 10/30. She had an initial USwith a low FHR and a follow-up showing no cardiac activity. She has had a little bit of spotting. Still having her typical symptoms of fatigue and breast tenderness. Eligibility Technician History: Patient's last menstrual period was 08/22/2020. Last 3 Pap and HPV Results: PAP / HPV 01/27/2019 PAP (Historical) NIL PMH, PSH, Soc Hx, Fam Hx, Meds, and allergies reviewed in Epic. OBJECTIVE: BP 92/60 (BP Location: Left arm, Patient Position: Chair, Cuff Size: Adult Regular) Ht 1.575 m (5' 2) Wt 65.8 kg (145 lb) LMP 08/22/2020 No BMI 26.52 kg/m?? Gen: Healthy appearing female, no acute distress, comfortable Psych: mentation appears normal and affect bright Heart: RRR no m/g/r Lungs CTAB Abd: soft NT ND Ext WWP with no edema : deferred Test Results: [facility]s [facility] Gyne[facility] ? ULTRASOUND - OB <??14 Weeks- Transabdominal and Transvaginal ?? Referring Provider: Elias Perez MD ?? INDICATIONS FOR ULTRASOUND: OB History: Present Conditions: follow up from 10/24/2020 ?? CLINICAL INFORMATION ?? LMP: 22 Aug 2020 - unsure EDC: revised to 17 Jun 2021 ?EGA: 7 w 1 d ? MEASUREMENTS Gest Sac: vis ? Position:nl ?Contour:smooth/regular. Yolk sac: 1.7 mm wnl CRL: 034 cm. ?EGA: ??6w 0d ?? U/S EDC: 25 Jun 2021 discrepancy Cardiac Activity:No ?? Rt Ov: 2.3 x 1.2 x 2.3 cm ?Wnl Lt Ov: 2.8 x 1.9 x 2.7 cm ?Complex cyst 2.1 x 1.6 x 1.7cm Cul de sac: no free fluid ?? Impression: ??Early obstetric transabdominal and transvaginal ultrasound. No cardiac activity noted. ?? Discordant sonographic and menstrual EGA and EDC. Based on this, best estimated Date of Delivery: June 25, 2021 Normal amniotic fluid seen. ?? Placenta: not seen, appropriate for this gestational age Gestational sac: seen and within normal limits ? Absent cardiac activity with a history of US detected cardiac activity is diagnostic for missed . I personally discussed the diagnosis with the patient and she is scheduled for follow up this week to review management options in clinic. Component Latest Ref Rng & Units 10/24/2020 10/27/2020 10/29/2020 ABO/Rh(D) AB POS Antibody Screen Negative Negative SPECIMEN EXPIRATION DATE HCG Quantitative Serum 0 - 5 IU/L 35,217 (H) 36,252 (H) ASSESSMENT/PLAN: 1. Miscarriage Reviewed options for mgmt including expectant, medical, surgical. She elects for suction D&C freda done as soon as possible, not interested in chromosome testing of POC. Reviewed risks of the procedure and she has agreed to proceed and pre-op physical and covid swab were done today. - Joy-Operative Worksheet Nicolasa Sapp MD, MPH Obstetrics and Gynecology documented in this encounter Nursing Notes Teresa Jackman - 11/02/2020 9:00 AM CDT Chief Complaint Patient presents with ??? Miscarriage next steps Initial BP 92/60 (BP Location: Left arm, Patient Position: Chair, Cuff Size: Adult Regular) Ht 1.575 m (5' 2) Wt 65.8 kg (145 lb) LMP 08/22/2020 No BMI 26.52 kg/m?? Estimated body mass index is 26.52 kg/m?? as calculated from the following: Height as of this encounter: 1.575 m (5' 2). Weight as of this encounter: 65.8 kg (145 lb). BP completed using cuff size: regular Questioned patient about current smoking habits. Pt. has never smoked. The following HM Due: NONE Teresa Jackman CMA documented in this encounter Miscellaneous Notes Addendum Note - Teresa Jackman - 11/02/2020 9:00 AM CDT Addended by: TERESA JACKMAN on: 11/02/2020 09:53 AM Modules accepted: Orders documented in this encounter Plan of Treatment Scheduled Orders Name Type Priority Associated Diagnoses Order S chedule Joy-Operative Worksheet Procedures Routine Miscarriage Ord ered: 11/02/2020 documented as of this encounter Procedures Procedure Name Priority Date/Time Associated Diagnosis Comme nts COVID-19 VIRUS Routine 11/02/2020 9:53 AM Miscarriage Result s for this (CORONAVIRUS) BY CDT procedure a re in PCR the results section. documented in this encounter Results Asymptomatic COVID-19 Virus (Coronavirus) by PCR Nasopharyngeal (11/02/2020 9:53 AM CDT) Analysis Performed At Patho logist Time Signature SARS CoV2 PCR Negative Negative 11/03/2020 [facility] 5:35 PM CDT LABORATORY Comment: NEGATIVE: SARS-CoV-2 (COVID-19) RNA not detected, presumed negative. Specimen Anatomical Location / Collection Method Collection Ilir e Received Time (Source) Laterality / Volume Swab NASOPHARYNGEAL Non-blood 11/02/2020 9:53 STRUCTURE / Unknown Collection / AM CDT 12:09 PM CDT Unknown Narrative [facility] - 11/03/2020 5:35 PM CDT Testing was performed using the silke SARS-CoV-2 assay on the silke 6800 System. This test should be ordered for the detection of SARS-CoV-2 in individuals who meet SARS- CoV-2 clinical and/or epidemiological criteria. Test performan ce is unknown in asymptomatic patients. This test is for in vitro diag nostic use under the FDA EUA for laboratories certified under CLIA to perform high and/or moderate complexity testing. This test has not be en FDA cleared or approved. A negative result does not rule out the pr esence of PCR inhibitors in the specimen or target RNA in concentrat ion below the limit of detection for the assay. The possibility of a false negative should be considered if the patient's recent ex posure or clinical presentation suggests COVID-19. This faizan t was validated by the [facility] Infectious Diseases Diag nostic Laboratory. This laboratory is certified under the Clinic al Laboratory Improvement Amendments of 1988 (CLIA-88) as qualifie d to perform high and/or moderate complexity laboratory testing. Nicolasa Sapp MD LAB - MICRO GENERAL ORDERABL ES Performing Organization Address City/State/ZIP Code Phon e Number [facility] [place] [address] [facility], [address] [facility] Infectious [place], [place] [phone] Diseases Diagnostic [phone], [facility] Lab (IDDL) [address] [facility], [address] documented in this encounter Visit Diagnoses Diagnosis Miscarriage - Primary Unspecified spontaneous without mention of complication documented in this encounter Additional Health Concerns Assessment Noted Time PHQ-9 Depression Total Score: 11 01/27/2019 9:[address] documented as of this encounter Care Teams Steel Plate Printer Relationship Specialty Start Date End Date No Ref-Primary, Physician PCP - General 02/23/14 Elva Ramos, VAUGHN CNM Assigned OBGYN Provider 07/01/20 11/10/20 [address] [facility] [address] [place] [address] documented as of this encounter
--- OUTSIDE RECORDS SUMMARY | 2021-10-01 16:48 | XMS_ITS | Encounter Summary ---
:1995 Author Organization [place] Address [address] [place] [address] Care Team Providers Name Role Phone No Ref-Primary Primary Care Provider Deandre Ramos APRN CN Unavailable Encounter Details Date Type Department Care Team Description 10/29/2020 Travel Social History Tobacco Use Types Packs/Day [...] documented as of this encounter Care Teams Director Vaccine Relationship Specialty Start Date End Date No Ref-Primary, Physician PCP - General 02/23/14 Elva Ramos, VAUGHN CNM Assigned OBGYN Provider 07/01/20 11/10/20 [address] [place] [address] documented as of this encounter
--- OUTSIDE RECORDS SUMMARY | 2021-10-01 16:48 | XMS_ITS | Encounter Summary ---
:1995 Author Organization [place] Address [facility] [place] [address] Care Team Providers Name Role Phone No Ref-Primary Primary Care Provider Deandre Ramos APRN CNM Unavailable Reason for Visit Reason Onset Date Comments Schedule Surgery 11/02/2020 suction d&c Encounter Details Date Type Department Care Team Description 11/02/2020 [facility] Nicolasa Sapp Schedule Surgery [facility] MD Jay (suction d&c) [place] [address] [facility] [address] [place], [place] [address] [address] [place], [place] [phone] (Wo rk) [address] [phone] Social History Tobacco Use Types Packs/Day Years [...] this encounter Miscellaneous Notes Telephone Encounter - [place] Hood - 11/02/2020 10:06 AM CDT Type of surgery: suction d&c Location of surgery: [facility] Date and time of surgery: 11/05/20 @ 12:45 pm Surgeon: Dr. Jay Sapp Pre-Op Appt Date: 11/02/20 Post-Op Appt Date: Packet sent out: Yes Pre-cert/Authorization completed: No Date: 11/02/20 Telephone Encounter - [place] Hood - 11/02/2020 10:05 AM CDT Procedure name(s) - multi select suction D&C Reason for procedure incomplete miscarriage Is this a multi surgeon case? No Laterality N/A Request for additional equipment Other (see comments) None Anesthesia Choice Initiate Pre-op orders for above procedure: Yes, as ordered in Epic Additional orders noted there also Location of Case: [facility] Surgeon Procedure Time (incision to closure) in minutes (per procedure as applicable) 30 Note: Surgical Case Time Needed (in minutes) Patient Class (for admit prior to surgery, specify number of days in comments): Same day (surgery center outpatient) Vendor Needed? No Other/Additional Comments, as needed: as ASC or [facility] documented in this encounter Plan of Treatment Not on filedocumented as of this encounter Visit Diagnoses Not on filedocumented in this encounter Additional Health Concerns Assessment Noted Time PHQ-9 Depression Total Score: 01/27/2019 9:[address] documented as of this encounter Care Teams Reexaminer Relationship Specialty Start Date End Date No Ref-Primary, Physician PCP - General 02/23/14 Elva Ramos APRN CNM Assigned OBGYN Provider 07/01/20 11/10/20 [address] [address] [place] [address] documented as of this encounter
--- OUTSIDE RECORDS SUMMARY | 2021-10-01 16:48 | XMS_ITS | Encounter Summary ---
:1995 Author Organization [place] Address [facility] [place] [address] Care Team Providers Name Role Phone No Ref-Primary Primary Care Provider Deandre Ramos APRN CNM Unavailable Reason for Referral Diagnostic Imaging Ultrasound (Routine) - Pending Review Specialty Diagnoses / Procedures Referred By Contact Refer red To Contact Diagnoses Encounter for supervision of other normal in first trimester Nicolasa Sapp MD Procedures US OB <14 Weeks w Transvaginal Single ([id number]) [address] [place], [place] [address] Referral ID Status Reason Start Date Expiration Date Visits V isits Requested Authorized [id number] Pending 10/16/2020 10/16/2021 1 1 Review Reason for Visit Reason Comments Care New Nurse Telephone Visit Encounter Details Date Type Department Care Team Description 10/16/2020 Office [facility] er for Visit Clinic Anahi supervision of other [facility] [place] normal pre gnancy in [facility] first trimester [address] (Primary Dx) [place] [address] Social History Tobacco Use Types Packs/Day Years [...] / COVID-19? documented as of this encounter Progress Notes Nancy Howell RN - 10/16/2020 2:15 PM CDT Chief Complaint Patient presents with ??? Care New Nurse Telephone Visit [id number] Estimated Date of Delivery: May 29, 2021 Initial LMP 08/22/2020 Estimated body mass index is 28.53 kg/m?? as calculated from the following: Height as of 06/06/20: 1.575 m (5' 2). Weight as of 06/06/20: 70.8 kg (156 lb). BP completed using cuff size: NA (Not Taken) Questioned patient about current smoking habits. Pt. has never smoked. NPN nurse visit done over the phone. Pt will be given NPN folder and book at her upcoming appt. Discussed optional screening available to assess chromosomal anomalies. Questions answered. Pt advised to call the clinic if she has any questions or concerns related to her . labs will be obtained at her upcoming appt. New visit scheduled on 11/02/[address] Jay Sapp. Lab Results Component Value Date PAP NIL 01/27/2019 Patient supplied answers from flow sheet for: OB Questionnaire. Past Medical History Have you ever recieved care for your mental health? : (!) Yes Have you ever been in a major accident or suffered serious trauma?: (!) Yes Within the last year, has anyone hit, slapped, kicked or otherwise hurt you?: No In the last year, has anyone forced you to have sex when you didn't want to?: No Past Medical History 2 Have you ever received a blood transfusion?: No Would you accept a blood transfusion if was medically recommended?: Unknown Does anyone in your home smoke?: No Is your blood type Rh negative?: No Have you ever breastfed?: (!) Yes Have you been hospitalized for a nonsurgical reason excluding normal delivery?: (!) Yes (hospitalized for mental health age 16) Have you ever had an abnormal pap smear?: No Past Medical History (Continued) Do you have a history of abnormalities of the uterus?: No Did your mother take MAC or any other hormones when she was with you?: Unknown Do you have any other problems we have not asked about which you feel may be important to this ?: No Nancy Howell RN documented in this encounter Plan of Treatment Not on filedocumented as of this encounter Results TSH with free T4 reflex (10/24/2020 1:14 [...] City/State/ZIP Code Phon e Number [facility] [place], [place] [phone] [place] [facility] [address] [place] [address] Lab (no room number, 1st floor of clinic) [facility] [place], [place] [phone] [facility] [id number] [place] [facility] [address] Lab (no room number, 1st floor [...] CDT 1:15 PM CDT Unknown Narrative [facility] - 10/25/2020 11:1 9 AM CDT Assay performance characteristics have n ot been established for newborns, infants, and children. Nicolasa Sapp MD LAB - BLOOD ORDERABLES Performing Organization Address City/[facility] Phon e Number [place] [address] CORE/PROT/ENDO Core/Prot/Endo [address] [facility], Room 3[address]580 [facility] SPECIALTY [facility] [place] Lab [address], [facility] [address] [facility], Room [address]271-5 Treponema Abs w Reflex to RPR and Titer (10/24/2020 1:14 PM CDT) [facility] Agency Method Time Signature Treponema Nonreactive Nonreactive 10/25/2020 [facility] Antibody 9:22 AM CDT SPECIALTY Total CORE Specimen Anatomical Collection Method / Collection Time Recei nas Time (Source) Location / Volume Laterality Blood STRUCTURE OF RIGHT Venipuncture / 10/24/2020 1:14 01/2021 UPPER LIMB / Unknown PM CDT 1:15 PM CDT Unknown Nicolasa Sapp MD LAB - BLOOD ORDERABLES Performing Organization Address City/[facility] Code Phon e Number [place] [address] CORE/PROT/ENDO Core/Prot/Endo [address] [facility] Building, Room 3-580 [facility] SPECIALTY [facility] [place] [place] Lab [address], [facility] [address] [facility], Room L271-5 (ABNORMAL) Rubella Antibody IgG Quantitative (10/24/2020 1:14 PM CDT) [facility] Agency Method Time Signature Rubella Naomie 8.38 (H) <0.90 Index 10/25/2020 [facility] IgG Instrument 9:58 AM CDT SPECIALTY [...] LAB - BLOOD ORDERABLES Performing Organization Address City/[facility] Phon e Number [place] [address] CORE/PROT/ENDO Core/Prot/Endo [address] [facility] [address] Building, Room 3-580 [facility] SPECIALTY [facility] Specialty [place], [place] [facility] [address], [facility] [address] [facility], Room L271-5 HIV Antigen Antibody Combo (10/24/2020 1:14 PM CDT) [facility] Agency Method Time Signature HIV Antigen Nonreactive Nonreactive 10/25/2020 [facility] Antibody 11:19 AM CDT SPECIALTY Combo CORE Comment: HIV-1 p24 Ag & HIV-1/HIV-2 Ab N ot Detected Specimen Anatomical Collection Method / Collection Time Recei nas Time (Source) Location / Volume Laterality Blood STRUCTURE OF RIGHT Venipuncture / 10/24/2020 1:14 01/2021 UPPER LIMB / Unknown PM CDT 1:15 PM CDT Unknown Nicolasa Sapp MD LAB - BLOOD ORDERABLES Performing Organization Address City/[facility] Code Phon e Number [place] [address] CORE/PROT/ENDO Core/Prot/Endo 500 [facility] Building, Room 3-580 [facility] SPECIALTY [facility] [place] Lab [address], [facility] [address] [facility], Room L271-5 Hepatitis B surface antigen (10/24/2020 1:14 PM CDT) [facility] Agency Method Time Signature Hepatitis B Nonreactive Nonreactive 10/25/2020 [facility] Surface 11:19 AM CDT SPECIALTY Antigen CORE Specimen Anatomical Collection Method / Collection Time Recei nas Time (Source) Location / Volume Laterality Blood STRUCTURE OF RIGHT Venipuncture / 10/24/2020 1:14 01/2021 UPPER LIMB / Unknown PM CDT 1:15 PM CDT Unknown Nicolasa Sapp MD LAB - BLOOD ORDERABLES Performing Organization Address City/State/ZIP Code Phon e Number [facility] [place] [address] CORE/PROT/ENDO Core/Prot/Endo [address] [facility] Building, Room 3-580 [facility] SPECIALTY CORE [facility] [place] Lab [address], [facility] [address] [facility], Room L271-5 (ABNORMAL) US OB <14 Weeks w Transvaginal Single ([id number]) (10/24/2020 1:01 PM CDT) Anatomical Region Laterality Modality Abdomen/Pelvis Ultrasound Specimen (Source) Anatomical Location Collection Method / Collectio n Time Received Time / Laterality Volume Impressions 10/24/2020 4:27 PM CDT ? MEASUREMENTS Gest Sac: vis ? Position:nl ?Contour:smooth/regular. Yolk sac: 4.3 mm wnl CRL: 0.52 cm. ?EGA: ??6w 2d ?? U/S EDC: 17 Jun 2021 discrepancy Cardiac Activity:Yes ? FHR: 58 bpm ?? Rt Ov L: 2.1 x 1.5 x 1.9 cm ?? Wnl Lt Ov L: 2.2 x 1.8 x 1.7 cm ?Complex cyst 1.3 x 1.1 x 1.0 cm Cul de sac: no free fluid ?? *Other Findings: ?? Impression: Early obstetric transabdominal and trans vaginal ultrasound. [place] live intrauterine . Note: discrepancy between sonographic an d menstrual EGA and EDC. Recommend revised EDC of 06/17/2021. anomalies may be present but not d etected. Normal amniotic fluid seen. Gestational sac is Normal. Placenta is not seen as is appropriate f or early gestational age. Uterus is anteverted and normal. Right ovary Normal. Complex left ovarian cyst, consistent wi th corpus luteum cyst, consider repeat ultrasound only if clinically ind icated. No cul-de-sac fluid. heart rate slow on today's ultraso und. ??Consider repeat ultrasound in 7-10 days for viability. Jordan Watson MD Obstetrics & Gynecology [facility] Narrative 10/24/2020 4:27 PM CDT [facility] Obstetrics and Gynecology ?? ULTRASOUND - OB < 14 Weeks- Transabdomin al and Transvaginal ?? Referring Provider: Nicolasa Sapp MD ?? INDICATIONS FOR ULTRASOUND: OB History: Present Conditions: Initial S&D (0-17 we eks) ?? CLINICAL INFORMATION ?? LMP: 22 Aug 2020 - unsure EDC: Jun 02 ?? EGA: 9 w 0 d ? Nicolasa Sapp MD IMG US ORDERABLES documented in this encounter Visit Diagnoses Diagnosis Encounter for supervision of other maryjo l in first trimester - Primary Encounter for supervision of other maryjo l in first trimester documented in this encounter Additional Health Concerns Assessment Noted Time PHQ-9 Depression Total Score: 11 01/27/2019 9:[address] documented as of this encounter Care Teams Marine Oiler Relationship Specialty Start Date End Date No Ref-Primary, Physician PCP - General 02/23/14 Elva Ramos APRN CNM Assigned OBGYN Provider 07/01/20 11/10/20 [address] [place] [address] documented as of this encounter
--- OUTSIDE RECORDS SUMMARY | 2021-10-01 16:48 | XMS_ITS | Encounter Summary ---
:1995 Author Organization [place] Address Critical access hospital0 [facility] [place] [address] Care Team Providers Name Role Phone No Ref-Primary Primary Care Provider Deandre Ramos APRN Unavailable Jay Sapp MD Unavailable Encounter Details Date Type Department Care Team Description 11/05/2020 [facility] Nicolasa Sapp MD [facility] [id number] [place] [address] [address] [place] [address] [address] [place] [address] [phone] Social History Tobacco Use Types Packs/Day Years [...] documented as of this encounter Progress Notes Nicolasa Sapp MD - 11/05/2020 2:28 PM CDT Operative Note - Suction D&C Patient: Ava Parker : 1995 Date of Service: 11/05/2020 Pre-operative diagnosis: missed AB Post-operative diagnosis: same Procedure: Suction dilation and curettage Surgeon: Nicolasa Sapp MD Anesthesia: General EBL: 5cc Urine: not measured Fluids: 200cc Specimens: products of conception Complications: none Findings: Uterus sounded to 10 cm, dilated to 8mm Indications: Ava Parker is a 24 year old at 10w5d with missed AB diagnosed on 10/30, measuring 6 weeks and with no FHT. She was counseled regarding the risks and alternatives of suction D&C, including perforation and scarring. The patient agreed to proceed, and signed written informed consent. Procedure: The patient was taken to the operating room where she was placed in the dorsal lithotomy position. Sedation was administered and the patient was prepped and draped in the usual sterile fashion. A speculum was inserted into the vagina and the cervix visualized. A single-toothed tenaculum wasplaced at 12 o'clock on the cervix. The cervix was dilated using Hegar dilators up to 8 mm. An 8 mm curved suction curet was inserted through the cervix to the uterine fundus and suction applied to 50 PSI. The curet was rotated in the uterine cavity with return of tissue. This process was repeated 5 times. A sharp curet was used on all aspects of the uterine cavity with minimal return of tissue and agritty texture throughout. The suction was repeated x2 with no return of tissue or blood. The suction contents were sent to pathology for examination. The tenaculum was removed from the cervix and good hemostasis noted with silver nitrate. Doxycycline, toradol, and IM methergine 0.2 were given in the OR. The speculum was removed from the vagina. The patient tolerated the procedure well and was taken to the recovery room in stable condition. Nicolasa Sapp MD, MPH Obstetrics and Gynecology documented in this encounter Plan of Treatment Not on filedocumented as of this encounter Visit Diagnoses Not on filedocumented in this encounter Additional Health Concerns Assessment Noted Time PHQ-9 Depression Total Score: 11 01/27/2019 9:[address] documented as of this encounter Care Teams Polish Compounder Relationship Specialty Start Date End Date No Ref-Primary, Physician PCP - General 02/23/14 Elva Ramos APRN CNM Assigned OBGYN Provider 07/01/20 11/10/20 [address] [place] [address] Nicolasa Sapp MD Assigned OBGYN Provider 11/11/20 [address] [place] [address] documented as of this encounter
--- OUTSIDE RECORDS SUMMARY | 2021-10-01 16:48 | XMS_ITS | Encounter Summary ---
:1995 Author Organization [place] Address [facility] [place] [address] Care Team Providers Name Role Phone No Ref-Primary Primary Care Provider Deandre Ramos APRN CNM Unavailable Reason for Visit Diagnostic Imaging Ultrasound (Routine) - Pending Review Specialty Diagnoses / Procedures Referred By Contact Refer red To Contact Diagnoses Encounter for supervision of other normal in first trimester Nicolasa Sapp MD Procedures US OB <14 Weeks w Transvaginal Single ([id number]) [address] [place], [place] [address] Referral ID Status Reason Start Date Expiration Date Visits V isits Requested Authorized [id number] Pending 10/16/2020 10/16/2021 1 1 Review Encounter Details Date Type Department Care Team Description 10/24/2020 Ancillary Procedure [facility] [place] supervision of other [address] [place] normal pre gnancy in [place] first trimester [address] [place] [address] Social History Tobacco Use Types Packs/Day Years [...] Name Priority Date/Time Associated Diagnosis Comme nts US OB <14 WEEKS WITH Routine 10/24/2020 1:01 Encounter for Re sults for this TRANSVAGINAL SINGLE PM CDT supervision of other procedure are in normal in the resu lts first trimester section. documented in this encounter Results (ABNORMAL) US OB <14 Weeks w Transvaginal Single ([id number]) (10/24/2020 1:01 PM CDT) Anatomical Region Laterality [...] viability. Jordan Watson MD Obstetrics & Gynecology [facility] Narrative 10/24/2020 4:27 PM CDT [facility] Obstetrics and Gynecology ?? ULTRASOUND - [...] documented as of this encounter Care Teams Transportation Aid Relationship Specialty Start Date End Date No Ref-Primary, Physician PCP - General 02/23/14 Elva Ramos, VAUGHN CNM Assigned OBGYN Provider 07/01/20 11/10/20 [address] [place] [address] documented as of this encounter
--- OUTSIDE RECORDS SUMMARY | 2021-10-01 16:48 | XMS_ITS | Encounter Summary ---
:1995 Author Organization [place] Address [address] [place] [address] Care Team Providers Name Role Phone No Ref-Primary Primary Care Provider Deandre Ramos APRN CN Unavailable Encounter Details Date Type Department Care Team Description 10/30/2020 Travel Social History Tobacco Use Types Packs/Day [...] documented as of this encounter Care Teams Dorr Operator Relationship Specialty Start Date End Date No Ref-Primary, Physician PCP - General 02/23/14 Elva Ramos, VAUGHN CNM Assigned OBGYN Provider 07/01/20 11/10/20 [address] [place] [address] documented as of this encounter
--- OUTSIDE RECORDS SUMMARY | 2021-10-01 16:48 | XMS_ITS | Encounter Summary ---
:1995 Author Organization [place] Address [address] [place] [address] Care Team Providers Name Role Phone No Ref-Primary Primary Care Provider Deandre Ramos APRN CNM Unavailable Reason for Referral Diagnostic Imaging Ultrasound (Routine) - Pending Review Specialty Diagnoses / Procedures Referred By Contact Refer red To Contact Diagnoses Threatened Elias Perez MD Procedures US OB <14 Weeks w Transvaginal Single [address] [facility] [address] [place] [address] Referral ID Status Reason Start Date Expiration Date Visits V isits Requested Authorized [id number] Pending 10/25/2020 10/25/2021 1 1 Review Encounter Details Date Type Department Care Team Description 10/25/2020 Telephone [facility] Women's Elias Perez MD [facility] [address] [facility] [address] [facility] [address] [place] [address] [place] [address] [phone] Social History Tobacco Use Types Packs/Day Years [...] Telephone Encounter - Kirstin Menchaca RN - 10/25/2020 9:57 AM CDT Spoke with pt. Scheduled her for a f/u US on 10/30/20. Instructions given. Kirstin Fermin RN Telephone Encounter - Elias Perez MD - 10/25/2020 9:50 AM CDT I returned the patient's phone call today. The patient viewed the results of her ultrasound done yesterday on my chart and had questions. I went over the ultrasound results with her at length. We discussed the reassignment of her due date. I also discussed the heart rate of 58 beats a minute. The patient denies any bleeding cramping or other concerns. The patient does state that if she has intercourse she can have some spotting after intercourse otherwise denies any vaginal bleeding. Wediscussed potential outcomes including potential spontaneous AB versus viable . I recommended pelvic rest activity restrictions a bowel regimen and elimination of stimulants. We will repeat an ultrasound exam next week to reconfirm viability. Signs and symptoms of miscarriage and been thoroughly reviewed with the patient I think she has a good understanding all her questions been answeredand informed consents been obtained documented in this encounter Plan of Treatment Not on filedocumented as of this encounter Results (ABNORMAL) US OB <14 Weeks w Transvaginal Single (10/30/2020 10:21 AM CDT) Anatomical Region Laterality Modality Abdomen/Pelvis Ultrasound Specimen (Source) Anatomical Location Collection Method / Collectio n Time Received Time / Laterality Volume Impressions 10/30/2020 1:42 PM CDT ? MEASUREMENTS Gest Sac: vis ? Position:nl ?Contour:smooth/regular. Yolk sac: 1.7 mm wnl CRL: 034 cm. ?EGA: ??6w 0d ?? U/S EDC: 25 Jun 2021 discrepancy Cardiac Activity:No ?? Rt Ov: 2.3 x 1.2 x 2.3 cm ?? Wnl Lt Ov: 2.8 x 1.9 x 2.7 cm ?Complex c yst 2.1 x 1.6 x 1.7cm Cul de sac: no free fluid ?? Impression: ??Early obstetric transabdominal and tra nsvaginal ultrasound. No cardiac activity noted. Discordant sonographic and menstrual EGA and EDC. Based on this, best estimated Date of Delivery: June 25 Normal amniotic fluid seen. Placenta: not seen, appropriate for this gestational age Gestational sac: seen and within normal limits Absent cardiac activity with a history o f US detected cardiac activity is diagnostic for missed . I person ally discussed the diagnosis with the patient and she is scheduled for fol low up this week to review management options in clinic. Dr. April Jauregui MD Obstetrics and Gynecology [facility] ? [place] [facility] [place] Narrative 10/30/2020 1:42 PM CDT ?? ealth [facility] Obstetrics and G ynecology ?? ULTRASOUND - OB < 14 Weeks- Transabdomin al and Transvaginal ?? Referring Provider: Elias Perez MD ?? INDICATIONS FOR ULTRASOUND: OB History: Present Conditions: follow up from 10/24 ?? CLINICAL INFORMATION ?? LMP: 22 Aug 2020 - unsure EDC: revised t o 17 Jun 2021 ?? EGA: 7 w 1 d ? Elias Perez MD IMG US ORDERABLES documented in this encounter Visit Diagnoses Diagnosis Threatened - Primary Threatened , unspecified as to e pisode of care Threatened Threatened , unspecified as to e pisode of care documented in this encounter Additional Health Concerns Assessment Noted Time PHQ-9 Depression Total Score: 11 01/27/2019 9:[address] documented as of this encounter Care Teams Laboratory Operations Coordinator Relationship Specialty Start Date End Date No Ref-Primary, Physician PCP - General 02/23/14 Elva Ramos, VAUGHN CNM Assigned OBGYN Provider 07/01/20 11/10/20 [address] [place] [address] documented as of this encounter
--- OUTSIDE RECORDS SUMMARY | 2021-10-01 16:48 | XMS_ITS | Encounter Summary ---
:1995 Author Organization [place] Address [address] [place] [address] Care Team Providers Name Role Phone No Ref-Primary Primary Care Provider Deandre Ramos APRN CN Unavailable Encounter Details Date Type Department Care Team Description 10/27/2020 Lab [facility] Thr eatened miscarriage in Hospital early [address] [place] [address] Social History Tobacco Use [...] Name Priority Date/Time Associated Diagnosis Comme nts HCG QUANTITATIVE STAT 10/27/2020 10:52 Threatened Results for this AM CDT miscarriage in early procedu re are in the results section. documented in this encounter Results (ABNORMAL) HCG quantitative (10/27/2020 10:52 AM CDT) [facility] gist Method Time Signature hCG Quantitative [...] City/State/ZIP Code Phon [place] [phone] [address] Lab (1st floor, no room number) documented in this encounter Visit Diagnoses Diagnosis Threatened miscarriage in early pregnanc y Threatened , unspecified as to e pisode of care documented in this encounter Additional Health Concerns Assessment Noted Time PHQ-9 Depression Total Score: 11 01/27/2019 9:[address] documented as of this encounter Care Teams A&P Technician Relationship Specialty Start Date End Date No Ref-Primary, Physician PCP - General 02/23/14 Elva Ramos APRN CNM Assigned OBGYN Provider 07/01/20 11/10/20 [address] [place] [address] documented as of this encounter
--- OUTSIDE RECORDS SUMMARY | 2021-10-01 16:48 | XMS_ITS | Encounter Summary ---
:1995 Author Organization [place] Address [address] [place] [address] Care Team Providers Name Role Phone No Ref-Primary Primary Care Provider Deandre Ramos APRN CN Unavailable Encounter Details Date Type Department Care Team Description 10/24/2020 Travel Social History Tobacco Use Types Packs/Day [...] documented as of this encounter Care Teams Security Flex Utility Officer Relationship Specialty Start Date End Date No Ref-Primary, Physician PCP - General 02/23/14 Elva Ramos, VAUGHN CNM Assigned OBGYN Provider 07/01/20 11/10/20 [address] [place] [address] documented as of this encounter
--- OUTSIDE RECORDS SUMMARY | 2021-10-01 16:48 | XMS_ITS | Clinical Summary ---
:1995 Author Organization [place] Address [address] [place] [address] Care Team Providers Name Role Phone No Ref-Primary Primary Care Provider Jay Sapp MD Unavailable Allergies Active Allergy Reactions Severity Noted Date Comments Cat Hair Extract 10/06/2012 Cockroach 10/06/2012 Dust Mite Extract 10/06/2012 Nuts Nausea and Vomiting, High 10/23/2018 Other r eaction(s): Shortness Of Breath Dizzines s Peanut (Diagnostic) Shortness Of Breath High 07/21/2013 Jackson Oil Shortness Of Breath High 05/06/2018 Other r eaction(s): Edema Medications Medication Sig Dispensed Refills Start Date End Date Status EPINEPHrine INJECT 1 PEN UTD 3 06/01/2017 Active (EPIPEN/ADRENACLICK/O FOR ALLERGIC R ANY BX GENERIC REACTION UTD EQUIV) 0.3 MG/0.3ML injection 2-pack Prenat w/o Take 1 tablet by 90 capsule 3 07/06/2018 Active K-HU-Esmkele-FA-DHA mouth daily (PNV-DHA) 27-0.6-0.4-300 MG CAPSIndications: Active Problems Problem Noted Date Indication for care in labor or delivery 12/15/2018 12/15/2018 (normal spontaneous vaginal delivery) 12/15/2018 Nausea 12/02/2018 Encounter for triage in patient 10/30/2018 Vaginal bleeding 10/30/2018 Echogenic focus of heart of fetus affecting antepartum care of mother, 08/14/2018 single gestation Low lying placenta nos or without hemorrhage, second t rimester 08/14/2018 Amenorrhea 07/21/2018 Overview: Overview: Created by Conversion Antidepressants causing adverse effect in therapeutic use 07/21/2018 Overview: Overview: Created by Conversion Excessive or frequent menstruation 07/21/2018 Overview: Overview: Created by Conversion Major depression, single episode 07/21/2018 Overview: Overview: Created by Conversion Migraine headache 07/21/2018 Overview: Overview: Created by Conversion Replacement Utility updated for latest I MO load Allergic rhinitis 07/19/2018 Overview: Overview: Created by Conversion Replacement Utility updated for latest I MO load Supervision of normal IUP (intrauterine ) in primigravida 06/03/2018 Overview: EDC 12/25/18 by L=first tri US. GIRL FO B: [place] Innatal: yes, AFP neg Flu: done Tdap: 10/11 hx: PTSD, anx/dep, cutting, conduct diso rder LL placenta. ECIF. Repeat US 28-32wk. 1 Hr GCT/Hgb: passed 103, 10.8 Nut allergy 05/06/2018 Overview: Overview: Created by Conversion Anxiety and depression 05/06/2018 Immunizations Name Administration Dates Next Due HPV Quadrivalent 06/08/2012, 01/20/2012, 11/13/2011 HepB, Unspecified 06/01/1998, 02/20/1998, 1995 Influenza Vaccine IM > 6 months Valent 12/06/2018, 9 IIV4 (Alfuria,Fluzone) Influenza Vaccine, 6+MO IM (QUADRIVALENT 05/06/2017 W/PRESERVATIVES) MMR 11/13/2011, 09/11/2003, 11/30/1998 Meningococcal (Menactra??) 12/07/2012 TDAP Vaccine (Adacel) 10/11/2018, 10/09/2010 Varicella 11/13/2011, 10/09/2010, 11/30/1998 Family History Medical History Relation Comments Diabetes Father Heart Disease Father Hyperlipidemia Father Hypertension Father Ovarian Cancer Maternal Aunt 1 Cancer Maternal Aunt 2 Vision Loss Maternal Aunt 2 Hip fracture Maternal Grandmother Hypertension Maternal Grandmother Breast Cancer Mother No Known Problems Mother Relation Status Comments Father Alive Maternal Aunt 1 Maternal Aunt 2 Alive colon cancer Maternal Grandmother Mother Alive Social History Tobacco Use Types Packs/Day Years [...] Date Recorded Female 10/01/2020 10:47 AM CDT Last Filed Vital Signs Vital Sign Reading Time Taken Comments Blood Pressure 92/60 11/02/2020 9:06 AM CDT Pulse 60 10/09/2020 6:30 PM CDT Temperature 36.4 ??C (97.6 ??F) 10/09/2020 5:14 PM CDT Respiratory Rate 20 10/09/2020 6:00 PM CDT Oxygen Saturation 100% 10/09/2020 6:30 PM CDT Inhaled Oxygen Concentration - - Weight 65.8 kg (145 lb) 11/02/2020 9:06 AM CDT Height 157.5 cm (5' 2) 11/02/2020 9:06 AM CDT Body Mass Index 26.52 11/02/2020 9:06 AM CDT Plan of Treatment Health Maintenance Due Date Last Done Comments ADVANCE CARE PLANNING 1995 ANNUAL REVIEW OF HM ORDERS 1995 CHLAMYDIA SCREENING 1995 DEPRESSION ACTION PLAN 1995 COVID-19 Vaccine (#1) 06/07/1998 DTAP/TDAP/TD IMMUNIZATION 04/13/2019 10/11/2018, 10/09/2010 (3 - Td or Tdap) PHQ-9 07/28/2019 01/27/2019, 12/30/2018 PREVENTIVE CARE VISIT 01/28/2020 01/27/2019, 08/20/2016, 06/06/2015 INFLUENZA VACCINE (#1) 2021 12/06/2018, 05/06/2018, 05/06/2017 PAP 01/27/2022 01/27/2019 HEPATITIS B IMMUNIZATION Completed 06/01/1998, 02/20/1998, 1995 HPV IMMUNIZATION Completed 06/08/2012, 01/20/2012, 11/13/2011 MENINGITIS IMMUNIZATION Aged Out 12/07/2012 No longe r eligible based on patient 's age to complete this topic HEPATITIS C SCREENING Completed 10/24/2020, 06/19/2017, 02/19/2016 HIV SCREENING Completed 10/24/2020, 06/03/2018, 06/19/2017, Additional history exists IPV IMMUNIZATION Aged Out No longer eligi ble based on patient 's age to complete this topic Pneumococcal Vaccine: Aged Out No longer eligible Pediatrics (0 to 5 Years) based on patient's age and At-Risk Patients (6 to to co mplete this topic 64 Years) Insurance Payer Benefit Plan / Subscriber ID Effective Phone Address T ype Group Dates WORK [facility] [id number] 2020-[address] [place] [address] MEDICA MEDICA [id number] 2018-Pre [phone] [address] 0 Indemnity ESSENTIAL sent [address] [place] [address] Ava Parker [employer] Self 1995 [phone] [id number] [address] (Home) [place] [id number] Worker's Employer 1995 [phone] [id number] [employer]W RIDGES Compensation 9 (Home) [place] [id number] Care Teams Fur Trapper Relationship Specialty Start Date End Date No Ref-Primary, Physician PCP - General 02/23/14 Nicolasa Sapp MD Assigned OBGYN Provider 11/11/20 [address] [place] [address]
--- OUTSIDE RECORDS SUMMARY | 2021-10-01 16:48 | XMS_ITS | Encounter Summary ---
:1995 Author Organization [place] Address [address] [place] [address] Care Team Providers Name Role Phone No Ref-Primary Primary Care Provider Deandre Ramos APRN CN Unavailable Reason for Visit Diagnostic Imaging Ultrasound (Routine) - Pending Review Specialty Diagnoses / Procedures Referred By Contact Refer red To Contact Diagnoses Threatened Elias Perez MD Procedures US OB <14 Weeks w Transvaginal Single [address] [facility] [address] [place] [address] Referral ID Status Reason Start Date Expiration Date Visits V isits Requested Authorized [id number] Pending 10/25/2020 10/25/2021 1 1 Review Encounter Details Date Type Department Care Team Description 10/30/2020 Ancillary Procedure [facility] Threatened [place] [address] [facility] [place] [address] [place] [address] Social History Tobacco Use Types [...] encounter Procedures Procedure Name Priority Date/Time Associated Comments Diagnosis US OB <14 WEEKS WITH Routine 10/30/2020 10:21 Threatened abort ion Results for this TRANSVAGINAL SINGLE AM CDT procedur e are in the results section. documented in [...] is diagnostic for missed . I person aubrie discussed the diagnosis with the patient and she is scheduled for fol low up this week to review management options in clinic. Dr. April Jauregui MD Obstetrics and Gynecology [facility] ? [facility] Narrative 10/30/2020 1:42 PM CDT ?? ealth [facility] Obstetrics and G ynecology ?? ULTRASOUND [...] in this encounter Visit Diagnoses Diagnosis Threatened Threatened , unspecified as to e pisode of care documented in this encounter Additional Health Concerns Assessment Noted Time PHQ-9 Depression Total Score: 11 01/27/2019 9:[address] documented as of this encounter Care Teams Photocopy Operator Relationship Specialty Start Date End Date No Ref-Primary, Physician PCP - General 02/23/14 Elva Ramos APRN CNM Assigned OBGYN Provider 07/01/20 11/10/20 [address] [facility] [address] [place] [address] documented as of this encounter
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
--- OUTSIDE RECORDS SUMMARY | 2021-10-01 16:49 | XMS_ITS | Encounter Summary ---
:1995 Author Organization [facility] Address [address] [place] [address] Care Team Providers Name Role Phone No Ref-Primary Primary Care Provider Reason for Visit Reason Comments Urgent Care almost 4 wks post - b leeding has returned/increased x 3 days. Encounter Details Date Type Department Care Team Description 01/08/2019 Office Visit [facility] Menometror rhagia (Primary Dx); Urgent Care Anais Russo Bilateral lower abdominal cr amping [address], [place], [place] [address] [place] [id number] [place], [place] [phone] Social History Tobacco Use Types Packs/Day Years Used Date Never Smoker Smokeless Tobacco: Never Used Alcohol Use Standard Drinks/Week Comments No 0 (1 standard drink = 0.6 oz pure alcoho l) Sex Assigned at Date Recorded Female 10/01/2020 10:47 AM CDT documented as of this encounter Last Filed Vital Signs Vital Sign Reading Time Taken Comments Blood Pressure 106/73 01/08/2019 10:25 AM CDT Pulse 79 01/08/2019 10:25 AM CDT Temperature 36.6 ??C (97.8 ??F) 01/08/2019 10:25 AM CDT Respiratory Rate - - Oxygen Saturation 98% 01/08/2019 10:25 AM CDT Inhaled Oxygen Concentration - - Weight - - Height - - Body Mass Index - - documented in this encounter Patient Instructions Patient InstructionsAnais Valentin PA-C - 01/08/2019 10:20 AM CDT (N92.1) Menometrorrhagia (primary encounter diagnosis) Comment: likely normal given the fact you are 3.5 weeks post Plan: Ibuprofen as needed. Follow up with OB. TO ED should you develop significant pain or fevers. (R10.31, R10.32) Bilateral lower abdominal cramping Comment: Plan: UA with Microscopic reflex to Culture, Urine Culture Aerobic Bacterial documented in this encounter Progress Notes Anais Valentin PA-C - 01/08/2019 10:20 AM CDT SUBJECTIVE: Ava Parker is a 23 year old female who presents with Bled a little for the past few weeks, but that cleared a couple of days ago and then the period likebleeding started. She has mild cramping. No fevers. 12/15/18 gave without complications easy delivery per patient. 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 {Patient's last menstrual period was 03/21/2018. Past Medical History: Diagnosis Date ??? Anxiety ??? Conduct disorder ??? Depression ??? Gastroesophageal reflux disease ??? PTSD (post-traumatic stress disorder) ??? Uncomplicated asthma excercise induced Current Outpatient Medications Medication Sig Dispense Refill ??? Prenat w/o F-XZ-Yjqyysy-FA-DHA (PNV-DHA) 27-0.6-0.4-300 MG CAPS Take 1 tablet by mouth daily 90 capsule 3 ??? EPINEPHrine (EPIPEN/ADRENACLICK/OR ANY BX GENERIC EQUIV) 0.3 MG/0.3ML injection 2-pack INJECT 1 PEN UTD FOR ALLERGIC REACTION UTD 3 ??? ibuprofen (ADVIL/MOTRIN) 600 MG tablet Take 1 tablet (600 mg) by mouth every 6 hours as needed for other (cramping) (Patient not taking: Reported on 01/08/2019) 30 tablet 0 Social History Socioeconomic History ??? Marital status: Single Spouse name: Not on file ??? Number of children: Not on file ??? Years of education: Not on file ??? Highest education level: Not on file Occupational History ??? Not on file Social Needs ??? Financial resource strain: Not on file ??? Food insecurity: Worry: Not on file Inability: Not on file ??? Transportation needs: Medical: Not on file Non-medical: Not on file Tobacco Use ??? Smoking status: Never Smoker ??? Smokeless tobacco: Never Used Substance and Sexual Activity ??? Alcohol use: No ??? Drug use: No ??? Sexual activity: Yes Partners: Male control/protection: None Lifestyle ??? Physical activity: Days per week: Not on file Minutes per session: Not on file ??? Stress: Not on file Relationships ??? Social connections: Talks on phone: Not on file Gets together: Not on file Attends restorationist service: Not on file Active member of club or organization: Not on file Attends meetings of clubs or organizations: Not on file Relationship status: Not on file ??? Intimate partner violence: Fear of current or ex partner: Not on file Emotionally abused: Not on file Physically abused: Not on file Forced sexual activity: Not on file Other Topics Concern ??? Parent/sibling w/ CABG, CT or angioplasty before 65F 55M? Not Asked Social History Narrative ??? Not on file ROS: CONSTITUTIONAL:NEGATIVE for fever, chills, change in weight INTEGUMENTARY/SKIN: NEGATIVE for worrisome rashes, moles or lesions EYES: NEGATIVE for vision changes or irritation ENT/MOUTH: NEGATIVE for ear, mouth and throat problems RESP:NEGATIVE for significant cough or SOB CV: NEGATIVE for chest pain, palpitations or peripheral edema GI: as per HPI : as per HPI MUSCULOSKELETAL: NEGATIVE for significant arthralgias or myalgia NEURO: NEGATIVE for weakness, dizziness or paresthesias Review of systems negative except as stated above. OBJECTIVE: BP 106/73 Pulse 79 Temp 97.8 ??F (36.6 ??C) (Oral) LMP 03/21/2018 SpO2 98% : deferred GENERAL APPEARANCE: healthy, alert and no distress CV: regular rates and rhythm, normal S1 S2, no murmur noted ABDOMEN: soft, nontender, no HSM or masses and bowel sounds normal BACK: No CVA tenderness SKIN: no suspicious lesions or rashes (N92.1) Menometrorrhagia (primary encounter diagnosis) Comment: likely normal given the fact you are 3.5 weeks post Plan: Ibuprofen as needed. Follow up with OB. TO ED should you develop significant pain or fevers. (R10.31, R10.32) Bilateral lower abdominal cramping Comment: Plan: UA with Microscopic reflex to Culture, Urine Culture Aerobic Bacterial Patient expresses understanding and agreement with the assessment and plan as above. documented in this encounter Plan of Treatment Not on filedocumented as of this encounter Procedures Procedure Name Priority Date/Time Associated Comments Diagnosis UA WITH MICROSCOPIC Routine 01/08/2019 10:45 Bilateral lower R esults for this AND REFLEX TO CULTURE AM CDT abdominal cramping procedure are in the results section. URINE CULTURE Routine 01/08/2019 10:45 Bilateral lower Results for this AM CDT abdominal cramping procedure are in the results section. documented in this encounter Results Urine Culture Aerobic Bacterial (01/08/2019 10:45 AM CDT) Component Value Ref Test Analysis Performed At [facility] Method Time Signature Specimen Midstream Urine INFECTIOUS Description DISEASES DIAGNOSTIC LABORATORY Culture Micro 50,000 to 100,000 colonies/mL 2018 INFECTIOUS mixed urogenital nany 10:18 PM DISEASE S Susceptibility testing not routinely done CDT DIAGNOSTIC LABORATORY Specimen (Source) Anatomical Collection Method Collection Time Re ceived Time Location / / Volume Laterality Examination of 01/08/2019 10:45 9 midstream urine AM CDT 11:22 AM CDT specimen (procedure) Anais Reyes PA-C LAB - MICRO GENERAL LUIS MIGUEL KOTHARI Performing Organization Address City/State/ZIP Code Phon e Number INFECTIOUS DISEASES [address] [place] [address] DIAGNOSTIC LABORATORY, [facility] INFECTIOUS DISEASES [address] [place] [address], [place] DIAGNOSTIC LABORATORY (ABNORMAL) UA with Microscopic reflex to Culture (01/08/2019 10:45 AM CDT) Component Value Ref Test Analysis Performed At [facility] Range Method Time Signature Color Urine Yellow 01/08/2019 [facility] 11:08 AM [facility] [place] Appearance Urine Clear 01/08/2019 [facility] 11:08 AM [facility] [place] Glucose Urine Negative NEG^Nega 01/08/2019 [facility] 11:08 AM CLINICS mg/dL [place] Bilirubin Urine Negative NEG^Nega 01/08/2019 [facility] tive 11:08 AM [facility] [place] Ketones Urine Negative NEG^Nega 01/08/2019 [facility] tive 11:08 AM CLINICS mg/dL [place] Specific [place] 1.020 1.003 - 01/08/2019 [facility] [place] Urine 1.035 11:08 AM [facility] Urine 5.5 5.0 - 01/08/2019 [place] 7.0 pH 11:08 AM [facility] [place] Protein Albumin Negative NEG^Nega 01/08/2019 [place] Urine tive 11:08 AM CLINICS mg/dL [facility] 0.2 0.2 - 01/08/2019 [place] Urine 1.0 11:08 AM CLINICS EU/dL [place] Nitrite Urine Negative NEG^Nega 01/08/2019 [facility] tive 11:08 AM [facility] [place] Blood Urine Large (A) NEG^Nega 01/08/2019 [facility] tive 11:08 AM [facility] [place] Leukocyte Negative NEG^Nega 01/08/2019 [place] Esterase Urine tive 11:08 AM [facility] [place] Source Midstream 01/08/2019 [place] Urine 10:54 AM [facility] [place] WBC Urine 5-10 (A) OTO5^0 - 01/08/2019 [facility] 5 /HPF 11:08 AM [facility] [place] RBC Urine 50-100 (A) OTO2^O - 01/08/2019 [facility] 2 /HPF 11:08 AM [facility] [place] Squamous Moderate (A) FEW^Few 01/08/2019 [facility] Epithelial /LPF /LPF 11:08 AM CLINICS Urine [place] Bacteria Urine Few (A) NEG^Nega 01/08/2019 [facility] tive 11:08 AM CLINICS /HPF CDT [facility] Specimen (Source) Anatomical Collection Method Collection Time Re ceived Time Location / / Volume Laterality Examination of 01/08/2019 10:45 9 midstream urine AM CDT 10:54 AM CDT specimen (procedure) Anais Reyes PA-C LAB - URINE ORDERABLES Performing Organization Address City/State/ZIP Code Phon e Number [facility] [address] [place] [address] documented in this encounter Visit Diagnoses Diagnosis Menometrorrhagia - Primary Excessive or frequent menstruation Bilateral lower abdominal cramping Abdominal pain, other specified site documented in this encounter Additional Health Concerns Assessment Noted Time PHQ-9 Depression Total Score: 11 12/30/2018 10:09 AM C DT documented as of this encounter Care Teams Forging Operator Relationship Specialty Start Date End Date No Ref-Primary, Physician PCP - General 02/23/14 documented as of this encounter
--- OUTSIDE RECORDS SUMMARY | 2021-10-01 16:49 | XMS_ITS | Encounter Summary ---
:1995 Author Organization [facility] Address [address] [place] [address] Care Team Providers Name Role Phone No Ref-Primary Primary Care Provider Reason for Visit Reason Onset Date Comments Erroneous encounter-disregard 12/17/2019 Encounter Details Date Type Department Care Team Description 12/17/2019 Office Visit [facility] Urgent ERR ONEOUS Care [place] ENCOUNTER--DISREGARD [address] (Primary Dx) [place] [address] Social History Tobacco Use Types Packs/Day Years Used Date Never Smoker Smokeless Tobacco: Never Used Alcohol Use Standard Drinks/Week Comments No 0 (1 standard drink = 0.6 oz pure alcoho l) Sex Assigned at Date Recorded Female 10/01/2020 10:47 AM CDT COVID-19 Exposure Response Date Recorded In the last month, have you been in contact Unable to assess 12/17/2019 10:52 AM CDT with someone who was confirmed or suspected to have Coronavirus / COVID-19? documented as of this encounter Progress Notes Rubina Alfonso CMA - 12/17/2019 11:00 AM CDT This encounter was opened in error. Please disregard. documented in this encounter Plan of Treatment Not on filedocumented as of this encounter Visit Diagnoses Diagnosis ERRONEOUS ENCOUNTER--DISREGARD - Primary documented in this encounter Additional Health Concerns Infection Onset Date Last Indicated Resolved Time Rule Out COVID-19 12/17/2019 12/17/2019 12/18/2019 6: 16 PM CDT Assessment Noted Time PHQ-9 Depression Total Score: 11 01/27/2019 9:[address] documented as of this encounter Care Teams Staff Physical Therapist Relationship Specialty Start Date End Date No Ref-Primary, Physician PCP - General 02/23/14 documented as of this encounter
--- OUTSIDE RECORDS SUMMARY | 2021-10-01 16:49 | XMS_ITS | Encounter Summary ---
:1995 Author Organization [facility] Address [facility] [place] [address] Care Team Providers Name Role Phone No Ref-Primary Primary Care Provider Reason for Visit Reason Comments Care Encounter Details Date Type Department Care Team Description 12/13/2018 Office [facility] [place] supervision of David Feliz MD normal first [address] felix dom in third [facility] 100 trimester (Primary [address] [place] [address] Dx) David, NORBERTO [phone] (Work) [phone] Social History Tobacco Use Types Packs/Day Years Used Date Never Smoker Smokeless Tobacco: Never Used Alcohol Use Standard Drinks/Week Comments No 0 (1 standard drink = 0.6 oz pure alcoho l) Sex Assigned at Date Recorded Female 10/01/2020 10:47 AM CDT documented as of this encounter Last Filed Vital Signs Vital Sign Reading Time Taken Comments Blood Pressure 110/68 12/13/2018 9:34 AM CDT Pulse - - Temperature - - Respiratory Rate - - Oxygen Saturation - - Inhaled Oxygen Concentration - - Weight 89.9 kg (198 lb 3.2 oz) 12/13/2018 9:34 AM CDT Height - - Body Mass Index 36.25 12/02/2018 11:35 AM CDT documented in this encounter Progress Notes Dottie Lucas MD - 12/13/2018 9:20 AM CDT Visit: Doing well. Good movement. Intermittent contractions. SVE favorable today. Labor precautions given. Will try to see Dr. Ibarra next week if still . Was told she was on vacation for 2 weeks. Dottie Lucas MD documented in this encounter Plan of Treatment Not on filedocumented as of this encounter Visit Diagnoses Diagnosis Encounter for supervision of normal firs t in third trimester - Primary Supervision of normal first documented in this encounter Care Teams Manager Bakery Relationship Specialty Start Date End Date No Ref-Primary, Physician PCP - General 02/23/14 documented as of this encounter
--- OUTSIDE RECORDS SUMMARY | 2021-10-01 16:49 | XMS_ITS | Encounter Summary ---
:1995 Author Organization [facility] Address [address] [place] [id number] Care Team Providers Name Role Phone No Ref-Primary Primary Care Provider Reason for Visit Reason Comments Spontaneous Rupture of Membrane Auth/Cert Specialty Diagnoses / Procedures Referred By Contact Refer red To Contact pole shaver Diagnoses Indication for care in labor or delivery (normal spontaneous vaginal delivery) [facility] [address] [place] [address] Phone: Referral ID Status Reason Start Date Expiration Date Visits Requ ested Visits Authorized [id number] 1 1 Encounter Details Date Type Department Care Team Description 12/15/2018 - Hospital Encounter [facility] Ag Paiz MD [address] [place] [id number] Indication for care in labor or delivery (Primary Dx); 12/17/2018 Inga Baeza DO [address] [place] [address] Single liveborn delivered vaginal ly [facility] [address], [address] [place] [address] Social History Tobacco Use Types Packs/Day Years Used Date Never Smoker Smokeless Tobacco: Never Used Alcohol Use Standard Drinks/Week Comments No 0 (1 standard drink = 0.6 oz pure alcoho l) Sex Assigned at Date Recorded Female 10/01/2020 10:47 AM CDT documented as of this encounter Last Filed Vital Signs Vital Sign Reading Time Taken Comments Blood Pressure 117/59 12/17/2018 9:23 AM CDT Pulse 56 12/17/2018 12:00 AM CDT Temperature 36.7 ??C (98 ??F) 12/17/2018 9:23 AM CDT Respiratory Rate 16 12/17/2018 9:23 AM CDT Oxygen Saturation - - Inhaled Oxygen Concentration - - Weight - - Height - - Body Mass Index - - documented in this encounter Discharge Instructions Discharge Shannan Luna RN - 12/17/2018 7:11 AM CDT Vaginal Delivery Instructions Activity ?? Ask family and friends for help when you need it. ?? Do not place anything in your vagina for 6 weeks. ?? You are not restricted on other activities, but take it easy for a few weeks to allow your body to recover from delivery. You are able to do any activities you feel up to that point. ?? No driving until you have stopped taking your pain medications (usually two weeks after delivery). Call your health care provider if you have any of these symptoms: ?? Increased pain, swelling, redness, or fluid around your stiches from an episiotomy or perineal tear. ?? A fever above 100.4 F (38 C) with or without chills when placing a thermometer under your tongue. ?? You soak a sanitary pad with blood within 1 hour, or you see blood clots larger than a golf ball. ?? Bleeding that lasts more than 6 weeks. ?? Vaginal discharge that smells bad. ?? Severe pain, cramping or tenderness in your lower belly area. ?? A need to urinate more frequently (use the toilet more often), more urgently (use the toilet veryquickly), or it taylor when you urinate. ?? Nausea and vomiting. ?? Redness, swelling or pain around a vein in your leg. ?? Problems or a red or painful area on your breast. ?? Chest pain and cough or are gasping for air. ?? Problems coping with sadness, anxiety, or depression. If you have any concerns about hurting yourself or the baby, call your provider immediately. ?? You have questions or concerns after you return home. Keep your hands clean: Always wash your hands before touching your perineal area and stitches. This helps reduce your riskof infection. If your hands aren't dirty, you may use an alcohol hand-rub to clean your hands. Keepyour nails clean and short. documented in this encounter Medications at Time of Discharge Medication Sig Dispensed Refills Start Date End Date EPINEPHrine INJECT 1 PEN UTD FOR 3 06/01/2017 (EPIPEN/ADRENACLICK/OR ALLERGIC REACTION ANY BX GENERIC EQUIV) UTD 0.3 MG/0.3ML injection 2-pack Prenat w/o Take 1 tablet by 90 capsule 3 07/06/2018 A-ZD-Mjnpflf-FA-DHA mouth daily (PNV-DHA) 27-0.6-0.4-300 MG CAPSIndications: ibuprofen (ADVIL/MOTRIN) Take 1 tablet (600 30 tablet 0 06/201802/24/2020 600 MG mg) by mouth every 6 tabletIndications: hours as needed for Indication for care in other (cramping) labor or delivery documented as of this encounter Progress Notes Tila Eugene MD - 12/17/2018 6:58 AM CDT Ava Parker December 17, 2018 S: pt doing well. Pain well controlled, Ambulating without difficulty. Tolerating po intake. Decreased lochia. Breast/Bottle feeding. O: BP 121/74 Pulse 56 Temp 97.9 ??F (36.6 ??C) (Oral) Resp 16 LMP 03/21/2018 ? Unknown Recent Labs Lab 12/15/181947 HGB 11.2* Abdomen: soft, non tender, fundus firm below the umbilicus Ext: non tender, no edema or erythema A/P: s/p PPD #2 Doing well Continue routine post care Discharge planning for today Shiraz Sen MD Ava Torres MD - 12/16/2018 9:31 AM CDT [facility] Post- Progress Note Assessment & Plan Assessment: Post- day #1 Normal spontaneous vaginal delivery Doing well. No excessive bleeding Pain well-controlled. Plan: Ambulation encouraged consultation Pain control measures as needed Reportable signs and symptoms dicussed with the patient Anticipate discharge tomorrow Ava Torres Interval History Doing well. Pain is well-controlled. No fevers. No history of foul-smelling vaginal discharge. Good appetite. Denies chest pain, shortness of breath, nausea or vomiting. Vaginal bleeding is similar to a heavy menstrual flow --slowed some this AM. Ambulatory. well. No issues overnight Medications ??? lactated ringers Stopped (12/15/18 2300) ??? - MEDICATION INSTRUCTIONS - ??? nitrous oxide/oxygen 50/50 blend ??? - MEDICATION INSTRUCTIONS - ??? NO Rho (D) immune globulin (RhoGam) needed - mother Rh POSITIVE ??? NO Rho (D) immune globulin (RhoGam) needed - mother Rh POSITIVE ??? - MEDICATION INSTRUCTIONS - ??? oxytocin in 0.9% NaCl ??? oxytocin in 0.9% NaCl 100 mL/hr (12/15/18 2335) ??? oxytocin in 0.9% NaCl ??? senna-docusate 1 tablet Oral BID Or ??? senna-docusate 2 tablet Oral BID ??? sodium chloride (PF) 3 mL Intracatheter Q8H Physical Exam Temp: 98.3 ??F (36.8 ??C) Temp src: Oral BP: 117/67 Pulse: 83 Heart Rate: 68 Resp: 16 There were no vitals filed for this visit. Vital Signs with Ranges Temp: [97.4 ??F (36.3 ??C)-98.6 ??F (37 ??C)] 98.3 ??F (36.8 ??C) Pulse: [83] 83 Heart Rate: [52-68] 68 Resp: [16-18] 16 BP: (103-129)/(56-86) 117/67 I/O last 3 completed shifts: In: - Out: 50 [Blood:50] Uterine fundus is firm, non-tender and at the level of the umbilicus Extremities Non-tender Data Recent Labs Lab Test 12/15/181947 ABO AB RH Pos Neg Recent Labs Lab Test 12/15/18194710/30/18 0821 HGB 11.2* 10.5* Recent Labs Lab Test 06/03/18 0930 RUQIGG 45 Nereyda Paiz MD - 12/15/2018 11:27 PM CDT Courtesy visit Patient delivered precipitously within 3 ctx of becoming completely dilated with Dr. Jovel. Please see her note for details. Patient resting with her baby doing skin to skin and her mom and FOB supportive at bedside. Did not receive any pain meds other than fentanyl x1 dose at 7cm. Suad Jovel MD - 12/15/2018 11:13 PM CDT OB IN-HOUSE MD Called urgently to room for unmedicated about to deliver. O: BP 129/86 Pulse 83 Temp 97.4 ??F (36.3 ??C) (Temporal) Resp 18 LMP 03/21/2018 +3 station, vertex Patient pushing on own Delivery female baby after 2 contractions. Vigorous cry immediately. Delayed cord clamp performed. Pitocin immediately. Placenta spontaneous and intact. Small hemostatic left labial lac, not repaired, observed for several minutes. QBL: 50ml. Suad Jovel MD documented in this encounter H&P Notes Nereyda Paiz MD - 12/15/2018 7:26 PM CDT No significant change in general health status based on examination of the patient, review of Nursing Admission Database and record. SROm at 1715. Jean every 4-5 min and 4-5cm. EFW: 7lb documented in this encounter Miscellaneous Notes Plan of Care - Shannan Mcgovern RN - 12/17/2018 3:02 PM CDT D: VSS, assessments WDL. I: Pt. received complete discharge paperwork and home medications as filled by discharge pharmacy. Pt. was given times of last dose for all discharge medications in writing on discharge medication sheets. Discharge teaching included home medication, pain management, activity restrictions, cares, and signs and symptoms of infection. A: Discharge outcomes on care plan met. Mother states understanding and comfort with self care and follow up care. P: Pt. Discharged. Pt. was accompanied by and left with personal belongings. Home care done. Pt. to follow up with OB provider per discharge instructions. Pt. had no further questions at the time of discharge and no unmet needs were identified. Social work has seen and discussed future plan. Plan of Tomas - Shannan Mcgovern RN - 12/17/2018 7:[address] Weldon notified that patient scored a 1 on question 10 of the PPD. Social work consult ordered. Will update Dr. Weldon after social work sees. Continue to monitor. Plan of Care - Agnes Almazan RN - 12/17/2018 5:41 AM CDT Fundus firm and bleeding wnl. VSS. Voiding without difficulty. Taking tylenol and ibuprofen every6 hrs with good relief. Up independently. Using ice and tucks. Encouraged to call with questions or concerns. Will continue to monitor. Plan of Care - Lula Norris RN - 12/16/2018 4:23 PM CDT VSS on RA. Ambulates independently. Tolerating regular diet. Pain managed with tylenol and ibuprofen. Bleeding scant. Working on with nipple shield. Encouraged to call with any questions or concerns. Continue to monitor. Plan of Care - Crystal Vick RN - 12/16/2018 3:39 AM CDT Patient arrived to unit with in arms. VSS. Taking tylenol and ibuprofen for discomfort. Usingice and tucks. infant using nipple shield. Has voided x1 since delivery. Patient and partner educated on safety protocols. Plan of care discussed. Encouraged to call with questions or concerns. Plan of Care - Allie Tom RN - 12/16/2018 1:44 AM CDT Data: Ava Parker transferred to [facility] via wheelchair at 0135. Baby transferred via parent's arms. Action: Receiving unit notified of transfer: Yes. Patient and family notified of room change. Reportgiven to Jeri Prabhakar at 0145. Belongings sent to receiving unit. Accompanied by Registered Nurse. Oriented patient to surroundings. Call light within reach. ID bands double-checked with receiving RN. Response: Patient tolerated transfer and is stable. Plan of Care - Allie Tom RN - 12/15/2018 11:35 PM CDT 2250- pt involuntarily pushing, pt is complete +2 station. In house MD paged and requested to come for delivery, Dr. Paiz called and updated. Dr. Jovel, in house, at bedside at 2255, at 2258. Plan of Care - Allie Tom RN - 12/15/2018 10:[address] Paiz updated on SVE and pt feeling pressure, requested her to head in to hospital. MD chou be updated when she is complete and pushing evaluated. Plan of Care - Alile Tom RN - 12/15/2018 8:09 PM CDT Pt desires uncomplicated labor and delivery with routine post cares and recovery Plan of Care - Savannah Quintero RN - 12/15/2018 7:57 PM CDT Data: Patient presented to [facility] at 1806. Reason for maternal/ assessment per patient is Spontaneous Rupture of Membrane . Patient is a . record reviewed. OB History Para Term AB Living 1 0 0 0 0 0 SAB TAB Ectopic Multiple Live Births 0 0 0 0 0 # Outcome Date GA Lbr Hawk/2nd Weight Sex Delivery Anes PTL Lv 1 Current . Medical history: Past Medical History: Diagnosis Date ??? Anxiety ??? Conduct disorder ??? Depression ??? Gastroesophageal reflux disease ??? PTSD (post-traumatic stress disorder) ??? Uncomplicated asthma excercise induced . Gestational Age 38w3d. VSS. movement present. Patient denies backache, vaginal discharge, pelvic pressure, UTI symptoms, GI problems, edema, headache, visual disturbances, epigastric or URQ pain, abdominal pain. Pt presents with c/o SROM today at 1715 clear fluid. She reports ctxs all day today and getting stronger since SROM. Pt was previously 3cm in office recently. Support persons boyfriend Ruslan present. Action: Verbal consent for EFM. Triage assessment completed. EFM applied for well being with SROM. Uterine assessment irregular mild ctxs. assessment: Presumed adequate oxygenation documented (see flow record). ROMplus collected and sent to lab. Cervical exam today in MAC was 4-5/70/-1. Response: Dr. Paiz informed of cervical exam, FHT and positive ROMplus. Plan per provider is admit to labor and pt may have pain meds as ordered if requested. Patient verbalized agreement with plan.Patient transferred to room 218 ambulatory, oriented to room and call light. Report given to Asher Tom RN. documented in this encounter Plan of Treatment Not on filedocumented as of this encounter Procedures Procedure Name Priority Date/Time Associated Comments Diagnosis TREPONEMA ABS W STAT 12/15/2018 7:48 Results for this REFLEX TO RPR AND PM CDT procedure are in TITER the results section. CBC WITH PLATELETS & STAT 12/15/2018 7:48 Res ults for this DIFFERENTIAL PM CDT procedure are i n the results section. ABO/RH TYPE AND STAT 12/15/2018 7:48 Results for this SCREEN PM CDT procedure are i n the results section. RUPTURE OF STAT 12/15/2018 6:30 Results for this MEMBRANES BY ROM PLUS PM CDT proced ure are in the results section. NON-STRESS TEST 12/15/2018 12:00 - HIM SCAN AM CDT documented in this encounter Results ABO/Rh type and screen (12/15/2018 7:48 PM CDT) [facility] Method Time Signature ABO AB 12/15/2018 [place] 11:01 PM CDT [facility] RH(D) Pos [facility] Antibody Neg 12/15/2018 [place] Screen 10:41 PM CDT [facility] Test Valid [facility] 12/15/2018 [place] Only At [facility] 8:01 PM CDT [facility] Specimen 12/18/2018 12/15/2018 [place] Expires 8:01 PM CDT [facility] Specimen Anatomical Collection Method Collection Time Receive d Time (Source) Location / / Volume Laterality Blood specimen 12/15/2018 7:48 9 (specimen) PM CDT 7:49 PM CDT Nereyda Paiz MD LAB - BLOOD BANK TEST ORDER Performing Organization Address City/State/ZIP Code Phon e Number [facility] [address] [place] [address] [phone] [place] [address] [address] [place] [address], [place] [phone] (ABNORMAL) CBC with platelets differential (12/15/2018 7:48 PM T) [facility] Method Time Signature WBC 8.8 4.0 - 12/15/2018 [facility] 11.0 7:53 PM [facility] 10e9/L [facility] RBC Count 4.09 3.8 - 5.2 12/15/2018 [facility] 10e12/L 7:53 PM [facility] Hemoglobin 11.2 (L) 11.7 - 12/15/2018 [facility] 15.7 g/dL 7:53 PM [facility] Hematocrit 33.9 (L) 35.0 - 12/15/2018 [facility] 47.0 % 7:53 PM [facility] MCV 83 78 - 100 12/15/2018 [facility] fl 7:53 PM [facility] MCH 27.4 26.5 - 12/15/2018 [facility] 33.0 pg 7:53 PM [facility] MCHC 33.0 31.5 - 12/15/2018 [facility] 36.5 g/dL 7:53 PM [facility] RDW 13.7 10.0 - 12/15/2018 [facility] 15.0 % 7:53 PM [facility] Platelet Count 233 150 - 450 12/15/2018 [facility] 10e9/L 7:53 PM [facility] Diff Method Automated 12/15/2018 [facility] Method 7:53 PM [facility] % Neutrophils 67.8 % 12/15/2018 [facility] 7:53 PM [facility] % Lymphocytes 19.7 % 12/15/2018 [facility] 7:53 PM [facility] % Monocytes 10.8 % 12/15/2018 [facility] 7:53 PM [facility] % Eosinophils 0.9 % 12/15/2018 [facility] 7:53 PM [facility] % Basophils 0.1 % 12/15/2018 [facility] 7:53 PM [facility] % Immature 0.7 % 12/15/2018 [facility] Granulocytes 7:53 PM [facility] Nucleated RBCs 0 0 /100 12/15/2018 [place] 7:53 PM CDT [facility] Absolute 5.9 1.6 - 8.3 12/15/2018 [place] Neutrophil 10e9/L 7:53 PM CDT [facility] Absolute 1.7 0.8 - 5.3 12/15/2018 [place] Lymphocytes 10e9/L 7:53 PM CDT [facility] Absolute 1.0 0.0 - 1.3 12/15/2018 [place] Monocytes 10e9/L 7:53 PM CDT [facility] Absolute 0.1 0.0 - 0.7 12/15/2018 [place] Eosinophils 10e9/L 7:53 PM CDT [facility] Absolute 0.0 0.0 - 0.2 12/15/2018 [place] Basophils 10e9/L 7:53 PM CDT [facility] Abs Immature 0.1 0 - 0.4 12/15/2018 [place] Granulocytes 10e9/L 7:53 PM CDT [facility] Absolute 0.0 12/15/2018 [place] Nucleated RBC 7:53 PM CDT [facility] Specimen Anatomical Collection Method Collection Time Receive d Time (Source) Location / / Volume Laterality Blood specimen 12/15/2018 7:48 9 (specimen) PM CDT 7:49 PM CDT Nereyda Paiz MD LAB - BLOOD ORDERABLES Performing Organization Address City/State/ZIP Code Phon e Number [facility] [address] [address] [phone] [place] [address] [place] [address], [facility] [phone] Treponema Abs w Reflex to RPR and Titer (12/15/2018 7:48 PM CDT) [facility] gist Method Time Signature Treponema Nonreactive NR^Nonrea 12/16/2018 [facility] ctive 1:49 PM CDT [facility] Specimen Anatomical Collection Method Collection Time Receive d Time (Source) Location / / Volume Laterality Blood specimen 12/15/2018 7:48 9 (specimen) PM CDT 7:49 PM CDT Nereyda Paiz MD LAB - BLOOD ORDERABLES Performing Organization Address City/State/ZIP Code Phon e Number [facility] [address] [place] [address] [facility] (ABNORMAL) Rupture of Membranes by ROM Plus (12/15/2018 6:30 PM CDT) [facility] Method Time Signature Rupture of Positive (A) NEG^Negat 12/15/2018 [place] rosanne 7:[address] [facility] Membranes by [facility] Specimen Anatomical Collection Method Collection Time Receive d Time (Source) Location / / Volume Laterality Amniotic fluid 12/15/2018 6:30 9 specimen PM CDT 6:48 PM CDT (specimen) Nereyda Paiz MD LAB - BODY FLUIDS ORDERABLES Performing Organization Address City/State/ZIP Code Phon e Number [facility] [address] [address] [facility] [address] [place] [address], [facility] [phone] NON-STRESS TEST - HIM SCAN (12/15/2018 12:00 AM CDT) Specimen (Source) Anatomical Location Collection Method / Collectio n Time Received Time / Laterality Volume 12/15/2018 Narrative This result has an attachment that is no t available. Provider Scan PROCEDURES documented in this encounter Visit Diagnoses Diagnosis Indication for care in labor or delivery - Primary Unspecified indication for care or inter vention related to labor and delivery, unspecified as to episode of care Single liveborn infant delivered vaginal ly Single liveborn, born in [facility] without mention of delivery (normal spontaneous vaginal deliver y) Normal delivery documented in this encounter Administered Medications Inactive Administered Medications - up to 3 most recent administrations Medication Order MAR Action Action Date Dose Rate Site acetaminophen (TYLENOL) tablet Given 12/17/2018 10:57 AM CDT 650 mg 650 mg 650 mg, Oral, EVERY 4 HOURS PRN, mild pain, fever, greater than or equal to 38?? C /100.4?? F (oral) or 38.5?? C/ 101.4?? F (core)., Starting on Thu12/15/18 at 1926, Maximum acetaminophen dose from all sources = 75 mg/kg/day not to exceed 4 grams/day. Given 12/17/2018 4:50 AM CDT 650 mg Given 12/16/2018 8:24 PM CDT 650 mg acetaminophen (TYLENOL) tablet 975 mg 975 mg, Oral, EVERY 6 HOURS PRN, mild pa in, fever, greater than or equal to 38?? C /100.4?? F (oral) or 38.5?? C/ 101.4?? F (core)., Starting on Thu12/15/18 at 2331, Maximum acetaminophen dose from all sources = 75 mg/kg /day not to exceed 4 grams/day. bisacodyl (DULCOLAX) Suppository 10 mg 10 mg, Rectal, DAILY PRN, constipation, Starting on Thu12/17/18 at 0000, Hold for loose stools. carboprost (HEMABATE) injection 250 mcg 250 mcg, Intramuscular, ONCE PRN, ONLY f or uterine atony with significant bleeding POST-DELIVERY, Starting on Thu12/15/18 at 1927, For 1 dose, Notify provider IF uterine atony and clarify with provider medication pre ference. fentaNYL (PF) (SUBLIMAZE) injection 50-100 Given 12/15 10:14 PM CDT 100 mcg mcg 50-100 mcg, Intravenous, EVERY 1 HOUR PRN, other, desired pain relief based on labor coping/body mass index/labor assessment., Starting on Thu12/15/18 at 1927, Start at the lowest dose or may give higher initial dose if labor coping/assessment warrants or as directed by provider. May adjust subsequent doses as needed for pain control based on patient response to first dose or labor coping. Hold dose for analgesic side effects. Notify provider to assess for uncontrolled pain or analgesic side effects. For ordered IV doses 1-100 mcg give IV Push undiluted over a minimum of 3-5 minutes. Given 12/15/2018 9:14 PM CDT 50 mcg hydrocortisone 2.5 % cream Rectal, 3 TIMES DAILY PRN, hemorrhoids, Starting on Thu12/15/18 at 2331, Apply to hemorrhoids. Send only if nurse requests. ibuprofen (ADVIL/MOTRIN) tablet 600 mg Given 12/17/2018 11:02 AM CDT 600 mg 600 mg, Oral, EVERY 6 HOURS PRN, other, cramping, Starting on Thu12/15/18 at 2331, Start 6 hours after ketorolac is completed (if ordered). Max dose: 3200 mg/day Given 12/17/2018 4:50 AM CDT 600 mg Given 12/16/2018 8:24 PM CDT 600 mg ibuprofen (ADVIL/MOTRIN) tablet 800 mg 800 mg, Oral, ONCE PRN, moderate pain, m ild-moderate pain, Starting on Thu12/15/18 at 1927, For 1 dose, Available for administration afte r delivery. May give with acetaminophen. lactated ringers BOLUS 1,000 mL Intravenous, 1,000 mL, ONCE PRN, IF patient to have ep idural or intrathecal narcotics and NOT pre-eclamptic, Startin g on Thu12/15/18 at 1926, For 1 dose, IV bolus must be initiated 15-30 min prior to epidural or intrathecal, then IV fluids per labor orders. Nurse may discontinue this order if duplicate. lactated ringers BOLUS 1,000 mL Intravenous, 1,000 mL, ONCE PRN, post- hemorrhag e (PPH), Starting on Thu12/15/18 at 2331, For 1 dose, Rate: 500-1000 mL/hr. lactated ringers BOLUS 500 mL Intravenous, 500 mL, ONCE PRN, per polic y for intrauterine resuscitation or uterine tachysystole, Starting on Thu12/15/18 at 1926, For 1 d ose lactated ringers BOLUS 500 mL Intravenous, 500 mL, ONCE PRN, IF patien t to have epidural or intrathecal narcotics AND patient is pre-eclamptic. , Starting on Thu 9 at 1926, For 1 dose, IV bolus must be initiated 15-30 min prior to epidural or intrathecal IF pre-eclamptic, then IV fluids per labor orders. Nurse may discontinue this order if duplicate. lactated ringers infusion New Bag 12/15/2018 9:09 PM CDT 125 mL/hr at 125 mL/hr, Intravenous, CONTINUOUS, Starting on Thu12/15/18 at 1930, Until Thu12/17/18 at 1732 lanolin ointment Topical, EVERY 1 HOUR PRN, dry skin, sor e nipples, Starting on Thu12/15/18 at 2331, Apply to sore nipples. lidocaine (LMX4) cream Topical, EVERY 1 HOUR PRN, pain, with VA D insertion or accessing implanted port., Starting on Thu12/15/18 at 1926, Do NOT give if patient has a history of allergy to any local anesthetic or any félix prod uct. Apply at least 30 minutes prior to VAD insertion or port access. In divided doses as need ed for size of site for insertion with MAX Dose: 2.5 g (?? of 5 g tube) lidocaine 1 % 0.1-1 mL 0.1-1 mL, Other, EVERY 1 HOUR PRN, mild pain with VAD insertion., Starting on Thu12/15/18 at 1926, Do NOT give if patient has a history of allergy to any local anesthetic or any félix product. MAX dose 1 mL subcu taneous OR intradermal in divided doses as needed for VAD insertion. lidocaine 1 % 0.1-20 mL 0.1-20 mL, Subcutaneous, ONCE PRN, episi otomy/laceration repair, Starting on Thu12/15/18 at 1926, For 1 dose, Available f or provider administration after delivery. Medication Instructions: misoprostol (CYTOTEC)- Nurse to discuss ordering with provider, if needed. Ordered via OB mis oprostol (CYTOTEC) Hemorrhage PANEL CONTINUOUS PRN, Starting on Thu12/15/18 at 1926, Until Thu12/17/18 at 1732, Nurse to discuss ordering with provider, if ne eded. Ordered via OB misoprostol (CYTOTEC) Hemorrhage PANEL ([id number]) methylergonovine (METHERGINE) injection 200 mcg 200 mcg, Intramuscular, ONCE PRN, ONLY f or uterine atony with significant bleeding POST-DELIVERY, Starting on Thu12/15/18 at 1926, For 1 dose, Notify provider IF uterine atony and clarify with provider medication preference. Do NOT give IF Blood Pressure greater than 140/90, preeclampsia, or chronic hypertension. naloxone (NARCAN) injection 0.1-0.4 mg 0.1-0.4 mg, Intravenous, EVERY 2 MIN PRN , opioid reversal, Starting on Thu12/15/18 at 1925, For respiratory rate LESS than or EQUAL to 8. Partial reversal dose: 0.1 mg titrated q 2 minutes for Analgesia Si de Effects Monitoring Sedation Level of 3 (frequently drowsy, arousable, drifts to sleep during conversation).Full reversal dose: 0.4 mg bolus for Analgesia Side Effects Monitor ing Sedation Level of 4 (somnolent, minimal or no response to st imulation). For ordered IV doses 0.1-2mg give IVP. Give each 0.4mg over 15 second s in emergency situations. For non-emergent situations further dilute in 9mL of NS to facilitate t itration of response. naloxone (NARCAN) injection 0.1-0.4 mg 0.1-0.4 mg, Intravenous, EVERY 2 MIN PRN, opioid rever cesar, for respiratory rate less than or equal to 8, Starting on Thu12/15/18 at 2331, For respiratory rate LESS than or EQUAL to 8. Partial reversal dose: 0.1 mg ti trated q 2 minutes for Analgesia Side Effects Monitoring Sedation Level of 3 (frequently drowsy, arousable, drifts to sleep during conver sation).Full reversal dose: 0.4 mg bolus for Analgesia Side Effects Monitoring Se dation Level of 4 (somnolent, minimal or no response to stimulation). For ordered IV doses 0.1-2mg give IVP. Give each 0.4mg over 15 seconds in emergency situations. For non-emergent situations further dilute in 9mL of NS to facilitate titration of response. nitrous oxide/oxygen 50/50 blend Inhalation, CONTINUOUS PRN, episodic vu lgesia, Starting on Thu12/15/18 at 1927, Only to be self-administered by patient. Patient Agreement for the Administration of Nitrous Oxide during Labor/Immediate per iod must be signed by patient prior to starting nitrous oxide/oxygen blend. ~Nitrous oxide is contraindicated if the patient has received opioid, be nzodiazepine or other sedative medication in the previous 2 ho urs. ~Precaution: If patient has received other medications with sedative side eff ects such as diphenhydramine, hydroxyzine, prochlorperazine or zolpidem assess level of sedation carefully before starting nitrous oxide. No MMR Needed - Assessment: Patient does not need MMR vaccine CONTINUOUS PRN, Starting on Thu12/15/18 at 2331, Until Thu12/17/18 at 1732, Assessment: Patient does not need MMR immunization NO Rho (D) immune globulin (RhoGam) need ed - mother Rh POSITIVE CONTINUOUS PRN, Starting on Thu12/15/18 at 1818, Until Thu12/17/18 at 1732 NO Rho (D) immune globulin (RhoGam) need ed - mother Rh POSITIVE CONTINUOUS PRN, Starting on Thu12/15/18 at 2331, Until Thu12/17/18 at 1732 No Tdap Needed - Assessment: Patient way s not need Tdap vaccine CONTINUOUS PRN, Starting on Thu12/15/18 at 2332, Until Thu12/17/18 at 1732, Assessment: Patient does not need Tdap immunization ondansetron (ZOFRAN) injection 4 mg 4 mg, Intravenous, EVERY 6 HOURS PRN, nausea, vomiting , Administer over 2-5 Minutes, Starting on Thu12/15/18 at 1817, If nausea no t resolved in 15 minutes, notify provider before proceeding to prochlorperazine (COMPAZINE) [if ordered]. Irritant. For ordered IV doses 0.1-4 mg, give IV Push undiluted over 2-5 minutes. ondansetron (ZOFRAN) injection 4 mg 4 mg, Intravenous, EVERY 6 HOURS PRN, nausea, vomiting , Administer over 2-5 Minutes, Starting on Thu12/15/18 at 1926, If nausea no t resolved in 15 minutes, notify provider before proceeding to prochlorperazine (COMPAZINE) [if ordered]. Irritant. For ordered IV doses 0.1-4 mg, give IV Push undiluted over 2-5 minutes. oxyCODONE-acetaminophen (PERCOCET) 5-325 MG per tablet 1 tablet 1 tablet, Oral, ONCE PRN, moderate to se vivian pain, Starting on Thu12/15/18 at 1927, For 1 dose, Available for administration after delivery. Maximum acetaminophen dose from all sources= 75 mg/kg/day not to exceed 4 grams oxytocin (PITOCIN) 30 units in New Bag 12/15/2018 11:00 PM CDT 340 mL/hr 340 mL/hr 500 mL 0.9% NaCl infusion 100-340 mL/hr, Intravenous, CONTINUOUS PRN, after delivery to treat or prevent uterine atony, Starting on Thu12/15/18 at 1927, Administer 340 mL/hr over 30 minutes for a total of 170 mL then decrease to 100 mL/hr until infusion complete (about 3.5 hours) or per provider direction. Start new bag at delivery. Discontinue or saline lock peripheral IV per nurse discretion. oxytocin (PITOCIN) 30 units in 500 mL 0. 9% NaCl infusion 1-24 sumit-units/min (1-24 mL/hr), Intra venous, CONTINUOUS, Starting on Thu12/15/18 at 1930, Start infusion at 2 sumit-units /min. Increase by 1-2 sumit-units/min every 30 minutes as clinically indicated until contractions are 2-3 minutes apart, lasting 45 to 60 seconds in duration to achieve labor progress. Max rate is 24 milliunits/min. Do NOT go higher withou t a provider order. If oxytocin (PITOCIN) infusion is discontinued and off for les s than 30 minutes, restart infusion at half of previous oxytocin (PITOCIN) rate. If oxytocin (PIT OCIN) infusion has been discontinued equal to or greater than 30 minutes, begin at initial dose. IF another cervical ripening medication is ordered wait 60 minutes after oxytocin (PITOCIN) infusion is stopped before administering cervical ripe anita medication. oxytocin (PITOCIN) 30 units in New Bag 12/15/2018 11:35 PM CDT 100 mL/hr 100 mL/hr 500 mL 0.9% NaCl infusion 100 mL/hr, Intravenous, CONTINUOUS, Starting on Thu12/15/18 at 2345, At 100 mL/hr to follow after initial oxytocin loading dose (340 mL/hr). Continue until infusion complete (about 3.5 hours) or per provider discretion. Begin after delivery of placenta; IV to continue until patient stable. Discontinue or saline lock per nurse discretion. oxytocin (PITOCIN) 30 units in 500 mL 0. 9% NaCl infusion 340 mL/hr, Intravenous, CONTINUOUS PRN, for hemorrhage (PPH) UNTIL bleeding subsided, Starting on Thu at 2331, When bleeding subsides decrease rate to 100 mL/hr. Notify provider immediately when in fusion begun. Oxytocin is first line medication for PPH. oxytocin (PITOCIN) injection 10 Units 10 Units, Intramuscular, ONCE PRN, Only for uterine atony after placenta delivery, Starting on Thu12/15/18 at 1927, For 1 d ose, Notify provider IF uterine atony and clarify with provider medication preference oxytocin (PITOCIN) injection 10 Units 10 Units, Intramuscular, ONCE PRN, postp artum hemorrhage (PPH) IF no IV access is available, Starting on Thu12/15/18 at 2331, For 1 dose , Oxytocin is first line medication for PPH. senna-docusate (SENOKOT-S/PERICOLACE) Given 12/16/2018 8:24 PM CDT 1 tablet 8.6-50 MG per tablet 1 tablet 1 tablet, Oral, 2 TIMES DAILY, First dose on Thu12/15/18 at 2345, If no bowel movement in 24 hours, increase to 2 tablets PO. Hold for loose stools. Hold for loose stools. Given 12/16/2018 8:17 AM CDT 1 tablet senna-docusate (SENOKOT-S/PERICOLACE) 8. 6-50 MG per tablet 2 tablet 2 tablet, Oral, 2 TIMES DAILY, First dos e on Thu12/15/18 at 2345, Hold for loose stools. Hold for loose stools. sodium chloride (PF) 0.9% PF flush 3 mL 3 mL, Intracatheter, EVERY 1 MIN PRN, li ne flush, for peripheral IV flush post IV meds, Starting on Thu12/15/18 at 1927 sodium chloride (PF) 0.9% PF flush 3 mL 3 mL, Intracatheter, EVERY 8 HOURS, Firs t dose on Thu12/15/18 at 1930, And Q1H PRN, to lock peripheral IV dormant line. sodium phosphate (FLEET ENEMA) 1 enema 1 enema, Rectal, DAILY PRN, constipation , Starting on Thu12/17/18 at 0000, Use if bisacodyl not effective Hold for loose stools. tranexamic acid (CYKLOKAPRON) Bolus 1g v ial attach to NaCl 50 or 100 mL bag ADULT 1 g, Intravenous, Administer over 10 Minutes, at 60 mL /hr, EVERY 30 MIN PRN, Post- hemorrhage (PPH), Starting on Thu12/15/18 at 1927, For 2 doses, Provider consultation REQUIRED and MUST be administere d as soon as the ONSET of bleeding AND within 3 hours of regardless of cau se of the PPH (atony OR laceration). IF bleeding continues, a 2nd dose may be administered after 30 minutes. IF concern for DIC (Disseminated Intravascula r Coagulation), obtain coagulation studies PRIOR to administrat ion. Mix in 50 mL or 100 mL normal saline and infuse. Contraindications include: h istory of PE (Pulmonary Emboli), DVT (Deep Vein Thrombosis) and current Subarachnoi d hemorrhage and active DIC. Each 1 gram to be infused over 10 minutes. tranexamic acid (CYKLOKAPRON) Bolus 1g v ial attach to NaCl 50 or 100 mL bag ADULT 1 g, Intravenous, Administer over 10 Minutes, at 60 mL /hr, EVERY 30 MIN PRN, Post- hemorrhage (PPH), Starting on Thu12/15/18 at 2331, For 2 doses, Provider consultation REQUIRED and MUST be administere d as soon as the ONSET of bleeding AND within 3 hours of regardless of cau se of the PPH (atony OR laceration). IF bleeding continues, a 2nd dose may be administered after 30 minutes. IF concern for DIC (Disseminated Intravascula r Coagulation), obtain coagulation studies PRIOR to administrat ion. Mix in 50 mL or 100 mL normal saline and infuse. Contraindications include: h istory of PE (Pulmonary Emboli), DVT (Deep Vein Thrombosis) and current Subarachnoi d hemorrhage and active DIC. Each 1 gram to be infused over 10 minutes. documented in this encounter Active and Recently Administered Medications Times are shown in CDT. Scheduled Medication Order 12/15/2018 12/16/2018 12/17/2018 senna-docusate (SENOKOT-S/PERICOLACE) 8. 6-50 MG per tablet 1 tablet(Linked Group 1) 2345 (Canceled Entry - Provider: Orders Generic Provider - Comment: Automatically canceled at discontinue of medication order) 0817 (Given - Provider: Lula Norris RN)2023 (Given - Provider: Agnes Almazan RN) 110 (Not Given - Provider: Shannan Mcgovern RN - Reason: Contraindicated) 1 tablet, Oral, 2 TIMES DAILY, First dos e on Thu12/15/18 at 2345, If no bowel movement in 24 hours, increase to 2 tablets PO. Hold for loose stools. Hold for loose stools. senna-docusate (SENOKOT-S/PERICOLACE) 8. 6-50 MG per tablet 2 tablet(Linked Group 1) 2345 (Canceled Entry - Provider: Orders Generic Provider - Comment: Automatically canceled at discontinue of medication order) 0817 (See Alternative - Provider: Lula Norris RN)2023 (See Alternative - Provider: Agnes Almazan, RN) 1102 (See Alternative - Provider: Shereen Mcgovern, RN) 2 tablet, Oral, 2 TIMES DAILY, First dos e on Thu12/15/18 at 2345, Hold for loose stools. Hold for loose stools. sodium chloride (PF) 0.9% PF flush 3 mL 1930 (Canceled Entry - Provider: Orders Generic Provider - Comment: Automatically canceled at discontinue of medication order) 0341 (Not Given - Provider: Crystal Matias, RN - Reason: Patient sleeping)1429 (Not Given - Provider: Lula Norris, LONG - Reason: Loss of IV access) 0600 (Canceled Entry - Provider: Orders Generic Provider - Comment: Automatically canceled at discontinue of medication order)1400 (Canceled Entry - Provider: Orders Generic Provider - Comment: Automatically canceled at discont 3 mL, Intracatheter, EVERY 8 HOURS, Firs t dose on Thu12/15/18 at 1930, And Q1H PRN, to lock peripheral IV dormant line. 2200 (Cancele d Entry - Provider: Orders Generic Provider - Comment: Automatically canceled at discontinue of medication order) inue of medication order) Continuous Medication Order 12/15/2018 12/16/2018 12/17/2018 lactated ringers infusion 2108 (New Bag - Provider: Jaycee Tom, RN)2300 (Stopped - Provider: Allie Tom, LONG) at 125 mL/hr, Intravenous, CONTINUOUS, S tarting Thu12/15/18 at 1930, Until Thu12/17/18 at 1732 oxytocin (PITOCIN) 30 units in 500 mL 0.9% NaCl infusi on 193 (Canceled Entry - Provider: Orders Generic Provider - Comment: Automatically canceled at discontinue of medication order) 1-24 sumit-units/min (1-24 mL/hr), Intra venous, at 1-24 mL/hr, CONTINUOUS, Starting Thu12/15/18 at 1930, Start infusion at 2 sumit-units/min. Increase by 1-2 sumit-units/min every 30 minutes as clinical ly indicated until contractions are 2-3 minutes apart, lasting 45 to 60 seconds in duration to achieve labor progress. Max rate is 24 milliunits/min. Do NOT go higher without a provider order. If oxyto joey (PITOCIN) infusion is discontinued a nd off for less than 30 minutes, restart infusion at half of previous oxytocin (PITOCIN) rate. If oxytocin (PITOCIN) infusion has been discontinued equal to or g reater than 30 minutes, begin at initial dose. IF another cervical ripening medication is ordered wait 60 minutes after oxytocin (PITOCIN) infusion is stopped before administering cervical ripening medication. oxytocin (PITOCIN) 30 units in 500 mL 0.9% NaCl infusi on 233 (New Bag - Provider: Allie Tom, RN) 100 mL/hr, Intravenous, at 100 mL/hr, CO NTINUOUS, Starting Thu12/15/18 at 2345, At 100 mL/hr to follow after initial oxytocin loading dose (340 mL/hr). Continue until infusion complete (about 3.5 hours) or per provider discretion. Begin after delivery of placenta; IV to continue until patient stable. Discontinue or saline lock per nurse discretion. PRN Medication Order 12/15/2018 12/16/2018 12/17/2018 acetaminophen (TYLENOL) tablet 650 mg 00 57 (Given - Provider: Allie Tom, LONG)0817 (Given - Provider: Lula Norris, LONG)1423 (Given - Provider: Lula Norris RN)2024 (Given - Provider: Agnes Almazan, LONG) 0450 (Given - Provider: Agnes Almazan, LONG)1057 (Given - Provider: Shannan Mcgovern RN) 650 mg, Oral, EVERY 4 HOURS PRN, mild pa in, fever, greater than or equal to 38?? C /100.4?? F (oral) or 38.5?? C/ 101.4?? F (core)., Starting Thu12/15/18 at 1926, Maximum acetaminophen dose from all sources = 75 mg/kg/day not to exceed 4 grams/day. acetaminophen (TYLENOL) tablet 975 mg 975 mg, Oral, EVERY 6 HOURS PRN, mild pa in, fever, greater than or equal to 38?? C /100.4?? F (oral) or 38.5?? C/ 101.4?? F (core)., Starting Thu12/15/18 at 2331, Maximum acetaminophen dose from all sources = 75 mg/kg/day not to exceed 4 grams/day. bisacodyl (DULCOLAX) Suppository 10 mg 10 mg, Rectal, DAILY PRN, constipation, Starting Thu12/17/18 at 0000, Hold for loose stools. carboprost (HEMABATE) injection 250 mcg 250 mcg, Intramuscular, ONCE PRN, ONLY f or uterine atony with significant bleeding POST-DELIVERY, Starting Thu12/15/18 at 1927, For 1 dose, Notify provider IF uterine atony and clarify with provider medication preference. fentaNYL (PF) (SUBLIMAZE) injection 50-100 mcg 2113 (G iven - Provider: Allie Tom, LONG)2213 (Given - Provider: Allie Tom, RN) 50-100 mcg, Intravenous, EVERY 1 HOUR TX N, Starting Thu12/15/18 at 1927, other, desired pain relief based on labor coping/body mass index/labor assessment., Start at the lowest dose or may give higher i nitial dose if labor coping/assessment w arrants or as directed by provider. May adjust subsequent doses as needed for pain control based on patient response to first dose or labor coping. Hold dose for analgesic side effects. Notify provide r to assess for uncontrolled pain or analgesic side effects. For ordered IV doses 1-100 mcg give IV Push undiluted over a minimum of 3-5 minutes. hydrocortisone 2.5 % cream Rectal, 3 TIMES DAILY PRN, hemorrhoids, Starting Thu12/15/18 at 2331, Apply to hemorrhoids. Send only if nurse requests. ibuprofen (ADVIL/MOTRIN) tablet 600 mg 0 057 (Given - Provider: Allie Tom, LONG)0818 (Given - Provider: Lula Norris, RN)1423 (Given - Provider: Lula Norris, RN)2024 (Given - Provider: Agnes Almazan, LONG) 0450 (Given - Provider: Agnes Almazan, LONG)1102 (Given - Provider: Shannan Mcgovern RN) 600 mg, Oral, EVERY 6 HOURS PRN, other, cramping, Starting Thu12/15/18 at 2331, Start 6 hours after ketorolac is completed (if ordered). Max dose: 3200 mg/day ibuprofen (ADVIL/MOTRIN) tablet 800 mg 800 mg, Oral, ONCE PRN, moderate pain, m ild-moderate pain, Starting Thu12/15/18 at 1926, For 1 dose, Available for administration after delivery. May give with acetaminophen. lactated ringers BOLUS 1,000 mL(Linked Group 2) Intravenous, 1,000 mL, ONCE PRN, IF yari ent to have epidural or intrathecal narcotics and NOT pre-eclamptic, Starting Thu12/15/18 at 1925, For 1 dose, IV bolus must be initiated 15-30 min prior to epidu ral or intrathecal, then IV fluids per l abor orders. Nurse may discontinue this order if duplicate. lactated ringers BOLUS 1,000 mL Intravenous, 1,000 mL, ONCE PRN, post-pa rtum hemorrhage (PPH), Starting Thu12/15/18 at 233, For 1 dose, Rate: 500-1000 mL/hr. lactated ringers BOLUS 500 mL Intravenous, 500 mL, ONCE PRN, per polic y for intrauterine resuscitation or uterine tachysystole, Starting Thu12/15/18 at 1925, For 1 dose lactated ringers BOLUS 500 mL(Linked Group 2) Intravenous, 500 mL, ONCE PRN, IF patien t to have epidural or intrathecal narcotics AND patient is pre-eclamptic. , Starting Thu12/15/18 at 1925, For 1 dose, IV bolus must be initiated 15-30 min prior t o epidural or intrathecal IF pre-eclampt ic, then IV fluids per labor orders. Nurse may discontinue this order if duplicate. lanolin ointment Topical, EVERY 1 HOUR PRN, dry skin, sor e nipples, Starting Thu12/15/18 at 2331, Apply to sore nipples. lidocaine (LMX4) cream Topical, EVERY 1 HOUR PRN, pain, with VA D insertion or accessing implanted port., Starting Thu12/15/18 at 1926, Do NOT give if patient has a history of allergy to any local anesthetic or any félix pro duct. Apply at least 30 minutes prior t o VAD insertion or port access. In divided doses as needed for size of site for insertion with MAX Dose: 2.5 g (?? of 5 g tube) lidocaine 1 % 0.1-1 mL 0.1-1 mL, Other, EVERY 1 HOUR PRN, mild pain with VAD insertion., Starting Thu12/15/18 at 192, Do NOT give if patient has a history of allergy to any local anesthetic or any félix product. MAX dose 1 mL subcutaneous OR intradermal in divided doses as needed for V AD insertion. lidocaine 1 % 0.1-20 mL 0.1-20 mL, Subcutaneous, ONCE PRN, episi otomy/laceration repair, Starting Thu12/15/18 at 192, For 1 dose, Available for provider administration after delivery. Medication Instructions: misoprostol (CY TOTEC)- Nurse to discuss ordering with provider, if needed. Ordered via OB misoprostol (CYTOTEC) Hemorrhage PANEL CONTINUOUS PRN, Starting Thu12/15/18 at 192, Until Thu12/17/18 at 1732, Nurse to discuss ordering with provider, if needed. Ordered via OB misoprostol (CYTOTEC) Hemorrhage PANEL ([id number]) methylergonovine (METHERGINE) injection 200 mcg 200 mcg, Intramuscular, ONCE PRN, ONLY f or uterine atony with significant bleeding POST-DELIVERY, Starting Thu12/15/18 at 192, For 1 dose, Notify provider IF uterine atony and clarify with provider med ication preference. Do NOT give IF Blood Pressure greater than 140/90, preeclampsia, or chronic hypertension. naloxone (NARCAN) injection 0.1-0.4 mg 0.1-0.4 mg, Intravenous, EVERY 2 MIN PRN , opioid reversal, Starting Thu12/15/18 at 1926, For respiratory rate LESS than or EQUAL to 8. Partial reversal dose: 0.1 mg titrated q 2 minutes for Analgesia Side Effects Monitoring Sedation Level o f 3 (frequently drowsy, arousable, drifts to sleep during conversation).Full reversal dose: 0.4 mg bolus for Analgesia Side Effects Monitoring Sedation Level of 4 (somnolent, minimal or no response to stimulation). For ordered IV doses 0.1- 2mg give IVP. Give each 0.4mg over 15 seconds in emergency situations. For non- emergent situations further dilute in 9mL of NS to facilitate titration of response. naloxone (NARCAN) injection 0.1-0.4 mg 0.1-0.4 mg, Intravenous, EVERY 2 MIN PRN , opioid reversal, for respiratory rate less than or equal to 8, Starting Thu12/15/18 at 2331, For respiratory rate LESS than or EQUAL to 8. Partial reversal dos e: 0.1 mg titrated q 2 minutes for Anal gesia Side Effects Monitoring Sedation Level of 3 (frequently drowsy, arousable, drifts to sleep during conversation).Full reversal dose: 0.4 mg bolus for Analge jean pierre Side Effects Monitoring Sedation Lev el of 4 (somnolent, minimal or no response to stimulation). For ordered IV doses 0.1-2mg give IVP. Give each 0.4mg over 15 seconds in emergency situations. For no n-emergent situations further dilute in 9mL of NS to facilitate titration of response. nitrous oxide/oxygen 50/50 blend Inhalation, CONTINUOUS PRN, episodic vu lgesia, Starting Thu12/15/18 at 1927, Only to be self-administered by patient. Patient Agreement for the Administration of Nitrous Oxide during Labor/Immediate P ostpartum period must be signed by yari ent prior to starting nitrous oxide/oxygen blend. ~Nitrous oxide is contraindicated if the patient has received opioid, benzodiazepine or other sedative medicati on in the previous 2 hours. ~Precautio n: If patient has received other medications with sedative side effects such as diphenhydramine, hydroxyzine, prochlorperazine or zolpidem assess level of sedation carefully before starting nitrous oxide. No MMR Needed - Assessment: Patient does not need MMR vaccine CONTINUOUS PRN, Starting Thu12/15/18 at 2331, Until Thu12/17/18 at 1732, Assessment: Patient does not need MMR immunization NO Rho (D) immune globulin (RhoGam) needed - mother Rh POSITIVE CONTINUOUS PRN, Starting Thu12/15/18 at 1818, Until Thu12/17/18 at 1732 NO Rho (D) immune globulin (RhoGam) needed - mother Rh POSITIVE CONTINUOUS PRN, Starting Thu12/15/18 at 2331, Until Thu12/17/18 at 1732 No Tdap Needed - Assessment: Patient does not need Tdap vaccine CONTINUOUS PRN, Starting Thu12/15/18 at 2332, Until Thu12/17/18 at 1732, Assessment: Patient does not need Tdap immunization ondansetron (ZOFRAN) injection 4 mg 4 mg, Intravenous, EVERY 6 HOURS PRN, na usea, vomiting, Administer over 2-5 Minutes, Starting Thu12/15/18 at 1817, If nausea not resolved in 15 minutes, notify provider before proceeding to prochlorpera zine (COMPAZINE) [if ordered]. Irritant. For ordered IV doses 0.1-4 mg, give IV Push undiluted over 2-5 minutes. ondansetron (ZOFRAN) injection 4 mg 4 mg, Intravenous, EVERY 6 HOURS PRN, na usea, vomiting, Administer over 2-5 Minutes, Starting Thu12/15/18 at 1926, If nausea not resolved in 15 minutes, notify provider before proceeding to prochlorpera zine (COMPAZINE) [if ordered]. Irritant. For ordered IV doses 0.1-4 mg, give IV Push undiluted over 2-5 minutes. oxyCODONE-acetaminophen (PERCOCET) 5-325 MG per tablet 1 tablet 1 tablet, Oral, ONCE PRN, moderate to se vivian pain, Starting Thu12/15/18 at 1927, For 1 dose, Available for administration after delivery. Maximum acetaminophen dose from all sources= 75 mg/kg/day not to exceed 4 grams oxytocin (PITOCIN) 30 units in 500 mL 0.9% NaCl infusi on (COMPLETED) 2300 (New Bag - Provider: Allie Tom RN) 100-340 mL/hr, Intravenous, at 100-340 m L/hr, CONTINUOUS PRN, after delivery to treat or prevent uterine atony, Starting Thu12/15/18 at 1927, For 1 dose, Administer 340 mL/hr over 30 minutes for a total of 170 mL then decrease to 100 mL/hr un til infusion complete (about 3.5 hours) or per provider direction. Start new bag at delivery. Discontinue or saline lock peripheral IV per nurse discretion. oxytocin (PITOCIN) 30 units in 500 mL 0.9% NaCl infusion 340 mL/hr, Intravenous, at 340 mL/hr, CO NTINUOUS PRN, for hemorrhage (PPH) UNTIL bleeding subsided, Starting Thu12/15/18 at 2331, When bleeding subsides decrease rate to 100 mL/hr. Notify pro vider immediately when infusion begun. O xytocin is first line medication for PPH. oxytocin (PITOCIN) injection 10 Units 10 Units, Intramuscular, ONCE PRN, Only for uterine atony after placenta delivery, Starting Thu12/15/18 at 1927, For 1 dose, Notify provider IF uterine atony and clarify with provider medication preference oxytocin (PITOCIN) injection 10 Units 10 Units, Intramuscular, ONCE PRN, postp artum hemorrhage (PPH) IF no IV access is available, Starting Thu12/15/18 at 2331, For 1 dose, Oxytocin is first line medication for PPH. sodium chloride (PF) 0.9% PF flush 3 mL 3 mL, Intracatheter, EVERY 1 MIN PRN, li ne flush, for peripheral IV flush post IV meds, Starting Thu12/15/18 at 1927 sodium phosphate (FLEET ENEMA) 1 enema 1 enema, Rectal, DAILY PRN, constipation , Starting Thu12/17/18 at 0000, Use if bisacodyl not effective Hold for loose stools. tranexamic acid (CYKLOKAPRON) Bolus 1g v ial attach to NaCl 50 or 100 mL bag ADULT 1 g, Intravenous, Administer over 10 Min utes, EVERY 30 MIN PRN, Starting Thu12/15/18 at 1927, For 2 doses, Post- hemorrhage (PPH), Provider consultation REQUIRED and MUST be administered as soon a s the ONSET of bleeding AND within 3 sterling rs of regardless of cause of the PPH (atony OR laceration). IF bleeding continues, a 2nd dose may be administered after 30 minutes. IF concern for DIC (Diss eminated Intravascular Coagulation), obt ain coagulation studies PRIOR to administration. Mix in 50 mL or 100 mL normal saline and infuse. Contraindications include: history of PE (Pulmonary Emboli), DVT (Deep Vein Thrombosis) and current Suba rachnoid hemorrhage and active DIC. Each 1 gram to be infused over 10 minutes. tranexamic acid (CYKLOKAPRON) Bolus 1g v ial attach to NaCl 50 or 100 mL bag ADULT 1 g, Intravenous, Administer over 10 Min utes, EVERY 30 MIN PRN, Starting Thu12/15/18 at 2331, For 2 doses, Post- hemorrhage (PPH), Provider consultation REQUIRED and MUST be administered as soon a s the ONSET of bleeding AND within 3 sterling rs of regardless of cause of the PPH (atony OR laceration). IF bleeding continues, a 2nd dose may be administered after 30 minutes. IF concern for DIC (Diss eminated Intravascular Coagulation), obt ain coagulation studies PRIOR to administration. Mix in 50 mL or 100 mL normal saline and infuse. Contraindications include: history of PE (Pulmonary Emboli), DVT (Deep Vein Thrombosis) and current Suba rachnoid hemorrhage and active DIC. Each 1 gram to be infused over 10 minutes. Linked Groups Order Group 1: senna-docusate (SENOKOT-S/PERICOLACE) 8.6-50 MG per tablet 1 tabletJump to med 1 tablet, Oral, 2 TIMES DAILY, First dos e on Thu12/15/18 at 2345
If no bowel movement in 24 hours, increase to 2 tablets PO. Hold for loose stools. Hold for loose stools.
Or senna-docusate (SENOKOT-S/PERICOLACE) 8.6-50 MG per tablet 2 tabletJump to med 2 tablet, Oral, 2 TIMES DAILY, First dos e on Thu12/15/18 at 2345
Hold for loose stools. Hold for loose stools.
Group 2: lactated ringers BOLUS 1,000 mLJump to med Intravenous, 1,000 mL, ONCE PRN, IF yari ent to have epidural or intrathecal narcotics and NOT pre-eclamptic, Starting Thu12/15/18 at 1926, For 1 dose
IV bolus must be initiated 15-30 min prior to epidural or intrathecal, then IV flui ds per labor orders. Nurse may discontinue this order if duplicate.
Or lactated ringers BOLUS 500 mLJump to med Intravenous, 500 mL, ONCE PRN, IF patien t to have epidural or intrathecal narcotics AND patient is pre-eclamptic. , Starting Thu12/15/18 at 1926, For 1 dose
IV bolus must be initiated 15-30 min prior to epidural or intrathecal IF pre -eclamptic, then IV fluids per labor orders. Nurse may discontinue this order if duplicate.
documented in this encounter Care Teams Button Decorating Machine Operator Relationship Specialty Start Date End Date No Ref-Primary, Physician PCP - General 02/23/14 documented as of this encounter
--- OUTSIDE RECORDS SUMMARY | 2021-10-01 16:49 | XMS_ITS | Encounter Summary ---
:1995 Author Organization [place] Address [address] [place] [address]. [place] [address] Care Team Providers Name Role Phone No Ref-Primary Primary Care Provider Reason for Visit Reason Onset Date Comments Patient Request 03/01/2019 Encounter Details Date Type Department Care Team Description 03/01/2019 Telephone [facility] Manjit Lucas Patient Request for Women Cinthya Feliz MD [address] [facility] out [address] [facility] [address] [place] [address] [place] [id number] (Wo rk) Social History Tobacco Use Types Packs/Day Years Used Date Never Smoker Smokeless Tobacco: Never Used Alcohol Use Standard Drinks/Week Comments No 0 (1 standard drink = 0.6 oz pure alcoho l) Sex Assigned at Date Recorded Female 10/01/2020 10:47 AM CDT documented as of this encounter Miscellaneous Notes Telephone Encounter - Alicia Marley RN - 03/02/2019 10:16 AM PARTS AND SERVICE MANAGER Informed of Dr. Lucas's comments. Pt verbalized understanding, in agreement with plan, and voicedno further questions. Transferred to scheduling. Alicia Marley RN on 03/02/2019 at 10:18 AM S AND SERVICE MANAGER Telephone Encounter - Dottie Lucas MD - 03/02/2019 9:52 AM PARTS AND SERVICE MANAGER She's due to come in for an IUD check. It is possible for the IUD to be pushed out when placed but this is not common. I recommend coming in for an IUD check. S AND SERVICE MANAGER Telephone Encounter - Melia Almeida RN - 03/02/2019 8:10 AM CST Called the pt back- She says that she has had ongoing spotting and bleeding since having her IUD placed in January. Reviewed w/ the pt that it is not unusual for her to experience bleeding or cramping up to 6 mos after having an IUD placed. It will get better. Recommended that she use Ibuprofen for the discomfort. Pt also repots that she passed two solid clumps today. Very concerned- Noticed one on her pad and one when she wiped. It looked like a small blood clot- but it was solid and hard. Would not burst when she squeezed it. I told her I had no idea what that could be- Will ask her dr if there is anything to be concerned about. Routing to Dr ME to advise S AND SERVICE MANAGER Telephone Encounter - Ranjana Chandler - 03/01/2019 4:41 PM CST Patient received IUD 02/07/19. Has had discharge and bleeding but today something different came out and she doesn't know what it is. Chante would like a call back @ [phone] S AND SERVICE MANAGER documented in this encounter Plan of Treatment Not on filedocumented as of this encounter Visit Diagnoses Not on filedocumented in this encounter Additional Health Concerns Assessment Noted Time PHQ-9 Depression Total Score: 11 01/27/2019 9:[address] documented as of this encounter Care Teams Arborist Climber Relationship Specialty Start Date End Date No Ref-Primary, Physician PCP - General 02/23/14 documented as of this encounter
--- OUTSIDE RECORDS SUMMARY | 2021-10-01 16:49 | XMS_ITS | Encounter Summary ---
:1995 Author Organization [employer] Address [facility] [place] [address] Care Team Providers Name Role Phone No Ref-Primary Primary Care Provider Reason for Visit Reason Comments IUD Encounter Details Date Type Department Care Team Description 03/03/2019 Office Visit [facility] Sisi Eugene device surveillance (Primary Dx); [facility] Bailee Ruth MD [address] [facility] [address] [address] [address] [place] [address] [place] [phone] Social History Tobacco Use Types Packs/Day Years Used Date Never Smoker Smokeless Tobacco: Never Used Tobacco Cessation: Counseling Given: No Alcohol Use Standard Drinks/Week Comments No 0 (1 standard drink = 0.6 oz pure alcoho l) Sex Assigned at Date Recorded Female 10/01/2020 10:47 AM CDT documented as of this encounter Last Filed Vital Signs Vital Sign Reading Time Taken Comments Blood Pressure 116/78 03/03/2019 2:05 PM GAS SCRUBBER OPERATOR Pulse - - Temperature - - Respiratory Rate - - Oxygen Saturation - - Inhaled Oxygen Concentration - - Weight 78 kg (172 lb) 03/03/2019 2:05 PM GAS SCRUBBER OPERATOR Height - - Body Mass Index 31.46 02/07/2019 11:00 AM GAS SCRUBBER OPERATOR documented in this encounter Progress Notes Tila Eugene MD - 03/03/2019 2:00 PM CST SUBJECTIVE: Ava Parker is a 23 year old female who presents to clinic today for the following health issue(s): Patient presents with: IUD HPI: Patient with no IUD concerns. She is and having irregular bleeding. Patient with mood stable. She had some increased anxiety previously. Patient's last menstrual period was 02/01/2019.. Patient is sexually active, . Using IUD for contraception. reports that she has never smoked. She has never used smokeless tobacco. STD testing offered? Declined Health maintenance updated: yes Today's PHQ-2 Score: PHQ-2 (??1998 [employer]) 03/03/2019 Q1: Little interest or pleasure in doing things 0 Q2: Feeling down, depressed or hopeless 0 PHQ-2 Score 0 Today's PHQ-9 Score: PHQ-9 SCORE 01/27/2019 PHQ-9 Total Score 11 Today's MARYSOL-7 Score: MARYSOL-7 SCORE 01/27/2019 Total Score 9 Problem list and histories reviewed & adjusted, as indicated. Additional history: as documented. Patient Active Problem List Diagnosis ??? Supervision of normal IUP (intrauterine ) in primigravida ??? Allergic rhinitis ??? Nut allergy ??? Amenorrhea ??? Antidepressants causing adverse effect in therapeutic use ??? Anxiety and depression ??? Excessive or frequent menstruation ??? Major depression, single episode ??? Migraine headache ??? Echogenic focus of heart of fetus affecting antepartum care of mother, single gestation ??? Low lying placenta nos or without hemorrhage, second trimester ??? Encounter for triage in patient ??? Vaginal bleeding ??? Nausea ??? Indication for care in labor or delivery ? (normal spontaneous vaginal delivery) Past Surgical History: Procedure Laterality Date ??? FOOT SURGERY ??? MYRINGOTOMY, INSERT TUBE BILATERAL, COMBINED ??? ORTHOPEDIC SURGERY L foot, magentic screws placed Social History Tobacco Use ??? Smoking status: Never Smoker ??? Smokeless tobacco: Never Used Substance Use Topics ??? Alcohol use: No Problem (# of Occurrences) Relation (Name,Age of Onset) Breast Cancer (1) Mother Diabetes (1) Father Hip fracture (1) Maternal Grandmother Hyperlipidemia (1) Father Hypertension (2) Father, Maternal Grandmother Ovarian Cancer (1) Maternal Aunt Current Outpatient Medications Medication Sig ??? ibuprofen (ADVIL/MOTRIN) 600 MG tablet Take 1 tablet (600 mg) by mouth every 6 hours as needed for other (cramping) ??? levonorgestrel (MIRENA) 20 MCG/24HR IUD 1 each (20 mcg) by Intrauterine route once ??? Prenat w/o I-YK-Fckdkqu-FA-DHA (PNV-DHA) 27-0.6-0.4-300 MG CAPS Take 1 tablet by mouth daily ??? EPINEPHrine (EPIPEN/ADRENACLICK/OR ANY BX GENERIC EQUIV) 0.3 MG/0.3ML injection 2-pack INJECT 1 PEN UTD FOR ALLERGIC REACTION UTD No current facility-administered medications for this visit. Allergies Allergen Reactions ??? Nuts Nausea and Vomiting and Shortness Of Breath Other reaction(s): Dizziness ??? Peanut (Diagnostic) Shortness Of Breath ??? [place] Oil Shortness Of Breath Other reaction(s): Edema ??? Cat Hair Extract ??? Cockroach ??? Dust Mite Extract ROS: 12 point review of systems negative other than symptoms noted below or in the HPI. Genitourinary: Cramps No urinary frequency or dysuria, bladder or kidney problems OBJECTIVE: BP 116/78 Wt 78 kg (172 lb) LMP 02/01/2019 Yes BMI 31.46 kg/m?? Body mass index is 31.46 kg/m??. Exam: Constitutional: Appearance: Well nourished, well developed alert, in no acute distress Chest: Respiratory Effort: Breathing unlabored. C Cardiovascular: no edema Skin: General Inspection: No rashes present, no lesions present, no areas of discoloration. Neurologic: Mental Status: Oriented X3. Normal strength and tone, sensory exam grossly normal, mentation intact and speech normal. Psychiatric: Mentation appears normal and affect normal/bright. Cervix: no lesions, no discharge, strings at os In-Clinic Test Results: No results found for this or any previous visit (from the past 24 hour(s)). ASSESSMENT/PLAN: ICD-10-CM 1. Intrauterine device surveillance Z30.431 2. Anxiety F41.9 There are no Patient Instructions on file for this visit. 1. IUD in place 2. Discussed pp depression and anxiety- she states she had some increase in both immediately following the IUD insertion. Dics warning signs to watch for. She has no SI/HI and is managing symptoms well. Discussed calling if this changes Tila Weldon MD [facility] DAVID SCRUBBER OPERATOR documented in this encounter Plan of Treatment Not on filedocumented as of this encounter Visit Diagnoses Diagnosis Intrauterine device surveillance - Prima ry Surveillance of previously prescribed in trauterine contraceptive device Anxiety Anxiety state, unspecified documented in this encounter Additional Health Concerns Assessment Noted Time PHQ-9 Depression Total Score: 11 01/27/2019 9:[address] documented as of this encounter Care Teams Electro Mechanical Technologist Relationship Specialty Start Date End Date No Ref-Primary, Physician PCP - General 02/23/14 documented as of this encounter
--- OUTSIDE RECORDS SUMMARY | 2021-10-01 16:49 | XMS_ITS | Encounter Summary ---
:1995 Author Organization [place] Address [address] [place] [address] Care Team Providers Name Role Phone No Ref-Primary Primary Care Provider Encounter Details Date Type Department Care Team Description 01/08/2019 Travel Social History Tobacco Use Types Packs/Day Years Used Date Never Smoker Smokeless Tobacco: Never Used Alcohol Use Standard Drinks/Week Comments No 0 (1 standard drink = 0.6 oz pure alcoho l) Sex Assigned at Date Recorded Female 10/01/2020 10:47 AM CDT documented as of this encounter Plan of Treatment Not on filedocumented as of this encounter Visit Diagnoses Not on filedocumented in this encounter Additional Health Concerns Assessment Noted Time PHQ-9 Depression Total Score: 11 12/30/2018 10:09 AM C DT documented as of this encounter Care Teams Dock Builder Relationship Specialty Start Date End Date No Ref-Primary, Physician PCP - General 02/23/14 documented as of this encounter
--- OUTSIDE RECORDS SUMMARY | 2021-10-01 16:49 | XMS_ITS | Encounter Summary ---
:1995 Author Organization [place] Address [facility] [place] [address] Care Team Providers Name Role Phone No Ref-Primary Primary Care Provider Reason for Visit Reason Comments IUD Encounter Details Date Type Department Care Team Description 02/07/2019 Office Visit [facility] Dottie Lucas for insertion of intrauterine contraceptive device (Primary Dx); [facility] MD Tray Pre-procedure lab exam [address] [address] [place] [address] [place] [address] (Work) [phone] Social History Tobacco Use Types Packs/Day Years Used Date Never Smoker Smokeless Tobacco: Never Used Alcohol Use Standard Drinks/Week Comments No 0 (1 standard drink = 0.6 oz pure alcoho l) Sex Assigned at Date Recorded Female 10/01/2020 10:47 AM CDT documented as of this encounter Last Filed Vital Signs Vital Sign Reading Time Taken Comments Blood Pressure 102/70 02/07/2019 11:00 AM FUEL CELL TECHNICIAN Pulse - - Temperature - - Respiratory Rate - - Oxygen Saturation - - Inhaled Oxygen Concentration - - Weight 79.8 kg (176 lb) 02/07/2019 11:00 AM FUEL CELL TECHNICIAN Height 157.5 cm (5' 2) 02/07/2019 11:00 AM FUEL CELL TECHNICIAN Body Mass Index 32.19 02/07/2019 11:00 AM FUEL CELL TECHNICIAN documented in this encounter Progress Notes Dottie Lucas MD - 02/07/2019 10:50 AM CST IUD Insertion: CONSULT: Subjective: Ava Parker is a 23 year old presents for IUD and desires Mirena type IUD. Patient has been given the opportunity to ask questions about all forms of control, including all options appropriate for Ava Parker. Discussed that no method of control, except abstinence is 100% effective against or sexually transmitted infection. Ava Parker understands she may have the IUD removed at any time. IUD should be removed by a health care provider. The entire insertion procedure was reviewed with the patient, including care after placement. Is a test required: Yes. Was it positive or negative? Negative Was a consent obtained? Yes Patient's last menstrual period was 03/21/2018. Last sexual activity: prior to last menses. No allergy to betadine or shellfish. Patient declines STD screening HCG Qual Urine Date Value Ref Range Status 10/18/2017 Negative NEG^Negative Final Comment: This test is for screening purposes. Results should be interpreted along with the clinical picture. Confirmation testing is available if warranted by ordering [id number], HCG Quantitative . LMP 03/21/2018 Pelvic Exam: EG/BUS: normal genital architecture without lesions, erythema or abnormal secretions. Vagina: moist, pink, rugae with physiologic discharge and secretions Cervix: multiparous no lesions and pink, moist, closed, without lesion or CMT Uterus: Anteverted position, mobile, no pain Adnexa: within normal limits and no masses, nodularity, tenderness PROCEDURE NOTE: -- IUD Insertion Reason for Insertion: contraception Patient did not take premedication Under sterile technique, cervix was visualized with speculum and prepped with Betadine solution swabx 3. Tenaculum was placed for stability. The uterus was gently straightened and sounded to 6.5 cm. IUD prepared for placement, and IUD inserted according to ironworker machine operator's instructions without difficulty or significant resitance, and deployed at the fundus. The strings were visualized and trimmed to 3.0 cm from the external os. Tenaculum was removed and hemostasis noted. Speculum removed. Patient tolerated procedure well. Lot # [id number] [facility][NOTE 3]: [id number] Exp: 04/2021 EBL: minimal Complications: none ASSESSMENT: ICD-10-CM 1. Pre-procedure lab exam Z01.812 HCG Qual, Urine ([id number]) 2. Encounter for insertion of intrauterine contraceptive device Z30.430 PLAN: Given ironworker machine operator's handouts, including when to have IUD removed, list of danger s/sx, side effectsand follow up recommended. Encouraged condom use for prevention of STD. Back up contraception advised for 7 days if progestin method. Advised to call for any fever, for prolonged or severe pain or bleeding, abnormal vaginal discharge, or unable to palpate strings. She was advised to use pain medications (ibuprofen) as needed for mild to moderate pain. Advised to follow-up in clinic in 6 weeks for IUDstring check if unable to find strings or as directed by provider. Dottie Lucas MD CELL TECHNICIAN documented in this encounter Nursing Notes Consuelo Long CMA - 02/07/2019 10:50 AM CST Clinic Administered Medication Documentation MEDICATION LIST: Intrauterine/Implant Insertion Documentation Device was placed by provider (please see MAR for given by information). Please see MAR and medication order for additional information. Type: Mirena Remove/Replace by: 02/08/2024 Exp: 04/2021 CELL TECHNICIAN documented in this encounter Plan of Treatment Not on filedocumented as of this encounter Procedures Procedure Name Priority Date/Time Associated Diagnosis Comme nts HC INSERTION Routine 02/07/2019 11:15 Encounter for INTRAUTERINE DEVICE AM FUEL CELL TECHNICIAN insertion of intrauterine contraceptive device HCG QUALITATIVE URINE Routine 02/07/2019 10:50 Pre-procedure l ab Results for this AM FUEL CELL TECHNICIAN exam procedure are i n the results section. documented in this encounter Results HCG Qual, Urine ([id number]) (02/07/2019 10:50 AM FUEL CELL TECHNICIAN) P athologist Signature HCG Qual Urine Negative NEG^Negati 02/07/2019 [facility] ve 10:59 AM FUEL CELL TECHNICIAN [facility] Comment: This test is for screening purposes. ??R esults should be interpreted along with the clinical picture. ??Confirmation te sting is available if warranted by ordering [id number], HCG Quantitative Pregna ncy. Specimen Anatomical Collection Method Collection Time Receive d Time (Source) Location / / Volume Laterality Urine specimen 02/07/2019 10:50 9 (specimen) AM FUEL CELL TECHNICIAN 10:52 AM FUEL CELL TECHNICIAN Dottie Lucas MD LAB - URINE ORDERABLES Performing Organization Address City/State/ZIP Code Phon e Number [facility] [address] [place] [address] [facility] 100 documented in this encounter Visit Diagnoses Diagnosis Encounter for insertion of intrauterine contraceptive device - Primary Pre-procedure lab exam Pre-procedural laboratory examination documented in this encounter Administered Medications Inactive Administered Medications - up to 3 most recent administrations Medication Order MAR Action Action Date Dose Rate Site levonorgestrel (MIRENA) 20 Given 02/07/2019 11:28 AM FUEL CELL TECHNICIAN 20 mcg MCG/24HR IUD 20 mcg Intrauterine, ONCE, On 02/07/19 at 1130, For 1 dose documented in this encounter Additional Health Concerns Assessment Noted Time PHQ-9 Depression Total Score: 01/27/2019 9:[address] documented as of this encounter Care Teams Manager Life Relationship Specialty Start Date End Date No Ref-Primary, Physician PCP - General 02/23/14 documented as of this encounter
--- OUTSIDE RECORDS SUMMARY | 2021-10-01 16:49 | XMS_ITS | Encounter Summary ---
:1995 Author Organization [place] Address [address] [place] [address] Care Team Providers Name Role Phone No Ref-Primary Primary Care Provider Encounter Details Date Type Department Care Team Description 01/27/2019 Travel Social History Tobacco Use Types Packs/Day [...] documented as of this encounter Care Teams Defense Attorney Relationship Specialty Start Date End Date No Ref-Primary, Physician PCP - General 02/23/14 documented as of this encounter
--- OUTSIDE RECORDS SUMMARY | 2021-10-01 16:49 | XMS_ITS | Encounter Summary ---
:1995 Author Organization [place] Address [address] [place] [address]. [place] [address] Care Team Providers Name Role Phone No Ref-Primary Primary Care Provider Reason for Visit Reason Onset Date Comments Patient Request 12/13/2018 Encounter Details Date Type Department Care Team Description 12/13/2018 Telephone [facility] Masters, Inga florez [facility] [address] [facility] S out [address] [facility] [address] [place] [address] [place] [id number] (Wo rk) Social History Tobacco Use Types Packs/Day Years Used Date Never Smoker Smokeless Tobacco: Never Used Alcohol Use Standard Drinks/Week Comments No 0 (1 standard drink = 0.6 oz pure alcoho l) Sex Assigned at Date Recorded Female 10/01/2020 10:47 AM CDT documented as of this encounter Miscellaneous Notes Telephone Encounter - Alicia Marley RN - 12/13/2018 2:34 PM CDT Bright red bleeding after wiping continues and patient concerns about the amount. No other leaking of fluid noted. Spoke to her about bleeding that can happen after an exam. Has noticed irregular contractions this afternoon with abdomen becoming very hard. Positive Baby movement. Recommended going to [facility] for her concerns for evaluation. Patient is to call if symptoms lessen and she decides not to go. MAC informed that patient is coming. Routing message to provider as JULIA Marley RN on 12/13/2018 at 2:48 PM Telephone Encounter - Karie Osullivan - 12/13/2018 2:30 PM CDT Patient calling again - still having bleeding, is concerned, please call to discuss. Telephone Encounter - Alta Syed RN - 12/13/2018 10:33 AM CDT Pt calling regarding vaginal bleeding Had a cervical exam today-3.5 cm Got home went to the bathroom and noticed bright red bleeding on the toilet paper Has had one contraction Discussed vag bleeding after having a cervical exam-will monitor for now-will call if bleeding does not start to resolve. Baby is active Reviewed labor precautions Alta Syed, RN on 12/13/2018 at 10:44 AM documented in this encounter Plan of Treatment Not on filedocumented as of this encounter Visit Diagnoses Not on filedocumented in this encounter Care Teams Mouse Breeder Relationship Specialty Start Date End Date No Ref-Primary, Physician PCP - General 02/23/14 documented as of this encounter
--- OUTSIDE RECORDS SUMMARY | 2021-10-01 16:49 | XMS_ITS | Encounter Summary ---
:1995 Author Organization [place] Address [address] [place] [address] Care Team Providers Name Role Phone No Ref-Primary Primary Care Provider Olga Ibarra DO Unavailable Encounter Details Date Type Department Care Team Description 06/06/2020 Travel Social History Tobacco Use Types Packs/Day Years Used Date Never Smoker Smokeless Tobacco: Never Used Alcohol Use Standard Drinks/Week Comments No 0 (1 standard drink = 0.6 oz pure alcoho l) Sex Assigned at Date Recorded Female 10/01/2020 10:47 AM CDT COVID-19 Exposure Response Date Recorded In the last month, have you been in contact with No / Unsure 06/06/2020 2:41 PM CDT someone who was confirmed or suspected to have Coronavirus / COVID-19? documented as of this encounter Plan of Treatment Not on filedocumented as of this encounter Visit Diagnoses Not on filedocumented in this encounter Additional Health Concerns Assessment Noted Time PHQ-9 Depression Total Score: 01/27/2019 9:[address] documented as of this encounter Care Teams Tree Trimmer Helper Relationship Specialty Start Date End Date No Ref-Primary, Physician PCP - General 02/23/14 Inga Ibarra, Assigned OBGYN Provider 01/06/20 06/09/20 [address] [place] [address] documented as of this encounter
--- OUTSIDE RECORDS SUMMARY | 2021-10-01 16:49 | XMS_ITS | Encounter Summary ---
:1995 Author Organization [place] Address [facility] [place] [address] Care Team Providers Name Role Phone No Ref-Primary Primary Care Provider Olga Ibarra DO Unavailable Reason for Visit Reason Comments IUD Removal Encounter Details Date Type Department Care Team Description 06/06/2020 Office Visit [facility] Elva Ramos er for removal [facility] VAUGHN Carrera CNM of intrauterine [place] [address] contraceptive device [address] [address] (Primary Dx) [place] [address] [facility] [address] [place] [address] (Work) [phone] Social History Tobacco Use Types Packs/Day Years [...] Sign Reading Time Taken Comments Blood Pressure 98/60 06/06/2020 2:48 PM CDT Pulse - - Temperature - - Respiratory Rate - - Oxygen Saturation - - Inhaled Oxygen Concentration - - Weight 70.8 kg (156 lb) 06/06/2020 2:48 PM CDT Height 157.5 cm (5' 2) 06/06/2020 2:48 PM CDT Body Mass Index 28.53 06/06/2020 2:48 PM CDT documented in this encounter Progress Notes Elva Ramos APRN CNM - 06/06/2020 2:50 PM CDT INDICATIONS: Is a test required: No. Was a consent obtained? Yes Ava Parker is a 24 year old female,, No LMP recorded. (Menstrual status: IUD). who presents today for IUD removal. Her current IUD was placed 02/07/2019. She has not had problems with the IUD. She requests removal of the IUD. She is thinking about again. Today's PHQ-2 Score: PHQ-2 (??[facility]) 03/03/2019 Q1: Little interest or pleasure in doing things 0 Q2: Feeling down, depressed or hopeless 0 PHQ-2 Score 0 PROCEDURE: A speculum exam was performed and the cervix was visualized. The IUD string was visualized. Using ring forceps, the string was grasped and the IUD removed intact. POST PROCEDURE: The patient tolerated the procedure well. Patient was discharged in stable condition. Call if bleeding, pain or fever occur., control counseling given., counseling given,including folic acid supplementation 800-1000 mg per day. and Use of condoms. Discussed menstrual cycle expectations. Elva Ramos APRN CNM 15 minutes spent on the date of the encounter doing chart review, patient visit , removal of IUD anddocumentation documented in this encounter Plan of Treatment Not on filedocumented as of this encounter Visit Diagnoses Diagnosis Encounter for removal of intrauterine co ntraceptive device - Primary documented in this encounter Additional Health Concerns Assessment Noted Time PHQ-9 Depression Total Score: 11 01/27/2019 9:[address] documented as of this encounter Care Teams Farm Loan Representative Relationship Specialty Start Date End Date No Ref-Primary, Physician PCP - General 02/23/14 Masters, Inga Espinoza, DO Assigned OBGYN Provider 01/06/20 06/09/20 [address] [facility] [address] [place] [address] documented as of this encounter
--- OUTSIDE RECORDS SUMMARY | 2021-10-01 16:49 | XMS_ITS | Encounter Summary ---
:1995 Author Organization [place] Address [address] [place] [address] Care Team Providers Name Role Phone No Ref-Primary Primary Care Provider Encounter Details Date Type Department Care Team Description 12/30/2018 Travel Social History Tobacco Use Types Packs/Day [...] documented as of this encounter Care Teams Outside Plant Engineer Relationship Specialty Start Date End Date No Ref-Primary, Physician PCP - General 02/23/14 documented as of this encounter
--- OUTSIDE RECORDS SUMMARY | 2021-10-01 16:49 | XMS_ITS | Encounter Summary ---
:1995 Author Organization [place] Address [facility] [place] [address] Care Team Providers Name Role Phone No Ref-Primary Primary Care Provider Reason for Referral Mental Health Outpatient (Routine) - Closed Specialty Diagnoses / Procedures Referred By Contact Refer red To Contact Diagnoses Current mild episode of major depressive disorder, unspecified whether recurrent (H) Yesi Ibarra DO [address] [place] [address] Referral ID Status Reason Start Date Expiration Date Visits Requ ested Visits Authorized [id number] Closed 01/27/2019 01/27/2020 1 1 WORK ESTIMATOR Reason for Visit Reason Comments Post Exam Encounter Details Date Type Department Care Team Description 01/27/2019 Office Visit [facility] Yesi Barlow ostpartum follow-up (Primary Dx); [facility] Tobi Espinoza DO Screening for cervical cancer; [address] Hist ory of precipitous delivery; [place] [address] Anxiety and depression; [address] [place] [address] Current mild episode of major depressive disorder, unspecified whether recurrent (H) [place] [id number] Social History Tobacco Use Types Packs/Day Years Used Date Never Smoker Smokeless Tobacco: Never Used Tobacco Cessation: Counseling Given: No Alcohol Use Standard Drinks/Week Comments No 0 (1 standard drink = 0.6 oz pure alcoho l) Sex Assigned at Date Recorded Female 10/01/2020 10:47 AM CDT documented as of this encounter Last Filed Vital Signs Vital Sign Reading Time Taken Comments Blood Pressure 120/74 01/27/2019 9:32 AM MILLWORK ESTIMATOR Pulse - - Temperature - - Respiratory Rate - - Oxygen Saturation - - Inhaled Oxygen Concentration - - Weight 81.2 kg (179 lb) 01/27/2019 9:32 AM MILLWORK ESTIMATOR Height - - Body Mass Index 32.74 12/02/2018 11:35 AM CDT documented in this encounter Patient Instructions Patient InstructionsMasters, Yesi Espinoza DO - 01/27/2019 9:30 AM MILLWORK ESTIMATOR To the Emergency Department as needed or call after hours crisis line at [phone] or [phone]. [place] Crisis Text Line: Text [place] to [address]3790 or Suicide LifeLine Chat: suicideBycler.org/chat ?? Community Resources: ?? National Suicide Prevention Lifeline: 626.808.5140 (TTY: 942.313.4772). Call anytime for help. ??(www.suicidepreventionlifeline.org) National [place] on Mental Illness (www.jane.org): 336.322.3302 or 019-427-2492. Mental Health Association (www.mentalhealth.org): 185.870.5912 or 950-262-1899. [place] Crisis Text Line: Text [place] to [address]280 Suicide LifeLine Chat: suicidepre[employer] GmbH.org/chat WORK ESTIMATOR documented in this encounter Progress Notes Yesi Ibarra DO - 01/27/2019 9:30 AM CST SUBJECTIVE: Jovany Parker, is here for a visit. She had a on 12/15/18 delivering a healthy baby girl, named Liliana weighing 6 lbs 4 oz at term. HPI: Baby is doing well, sleeping well. Moved last month, so has a lot of things to do for that which is causing some issues. Getting out of house with house showings. Has started working Out. Has some pretty good support from her mom, ruslan at nights. Thinks she needss to start getting together with friends again. Was seeing a therapist in , but thinks she wants to find another one. Plas to do that today. Thinking about IUD for contraception. Thinks she may have had a period, or was due to resumption of working out. Not sure. Has had some cramping with periods in past. Heavy flow. Has done OCPs in past. Problem list from : EDC 12/25/18 by L=first tri US. GIRL FOB: Ruslan Innatal: declined, AFP neg Flu: 12/02 Tdap: 10/11 GBS neg hx: PTSD, anx/dep, cutting, conduct disorder LL placenta. ECIF. Resolved at 28w 10/30- steriods admitted for VB Last PHQ-9 score on record= PHQ-9 SCORE 01/27/2019 PHQ-9 Total Score 11 MARYSOL-7 SCORE 12/30/2018 01/27/2019 Total Score 5 9 Pap: (No results found for: PAP ) Never, pt just turned 23 Delivery complications: precipitous delivery by in house physician Breast feeding: Yes Bladder problems: No Bowel problems/hemorrhoids: No Episiotomy/laceration/incision healed? Yes Vaginal flow: None [place]: No Contraception: IUD Emotional adjustment: doing well and happy Back to work: Staying home right now 12 point review of systems negative other than symptoms noted below. OBJECTIVE: Vitals: BP 120/74 Wt 81.2 kg (179 lb) LMP 01/04/2019 (Exact Date) Yes BMI 32.74 kg/m?? BMI= Body mass index is 32.74 kg/m??. General - pleasant female in no acute distress. Breast - symmetric, no skin changes and no puckering Abdomen - soft, ND, NT Pelvic - EG: normal adult female, BUS: within normal limits, Vagina: well rugated, no discharge, Cervix: no lesions or CMT Rectovaginal - deferred. ASSESSMENT: ICD-10-CM 1. Routine follow-up Z39.2 Pap imaged thin layer screen only - recommended age 21 - 24 years CARE VISIT 2. Screening for cervical cancer Z12.4 Pap imaged thin layer screen only - recommended age 21 - 24 years 3. History of precipitous delivery Z87.59 4. Anxiety and depression F41.9 F32.9 PLAN: May resume normal activities without restrictions. Pap smear was done today. History of depression and anxiety. Discussed resources available, referral placed. Seems to have good insight and has plans to help improve. No red flags, no suicidal homicidal ideation Full counseling was provided, and all questions were answered. Return to clinic in one year for an annual visit. Desires IUD contraception. History of heavy and cramping periods. Desires Mirena. Discussed risksand benefits, brochure given. Patient to return for placement. Discussed abstinence or strict condom contraception prior to placement, NSAID use prior to placement. Cont pNV Yesi Ibarra, WORK ESTIMATOR documented in this encounter Plan of Treatment Scheduled Referrals Name Type Priority Associated Diagnoses Order S [facility] MENTAL HEALTH REFERRAL Referral Routine Current mild episo de of Ordered: 01/27/2019 - Adult; Outpatient major depressive Treatment; disorder, unspecified Individual/Couples/Fami whether recurrent (H) ly/Group Therapy/Health Psychology; UMP: Health Psychology - Miguelina Brar ; Patient call to schedule documented as of this encounter Procedures Procedure Name Priority Date/Time Associated Diagnosis Comme nts PAP IMAGED THIN Routine 01/27/2019 9:50 AM Screening for Resu lts for this LAYER SCREEN MILLWORK ESTIMATOR cervical cancer procedure are in Routine the [facility] ts follow-up section. documented in this encounter Results Pap imaged thin layer screen only - recommended age 21 - 24 years (01/27/2019 9:50 AM MILLWORK ESTIMATOR) Component Value Ref Test Analysis Performed At [facility] Range Method Time Signature PAP NIL COPATH Copath Report COPATH Patient Name: JOVANY PARKER MR#: [id number] Specimen #: [id number] Collected: 01/27/2019 Received: 01/28/2019 Reported: 02/02/2019 10:22 Ordering Phy(s): YESI IBARRA For improved result formatting, select 'View Enhanced Report Format' under Linked Documents section. SPECIMEN/STAIN PROCESS: Pap imaged thin layer prep screening (Surepath, FocalPoint w ith guided screening) ? Pap-Cyto x 1 SOURCE: Cervical, endocervical ---- Pap imaged thin layer prep screening (Surepath, FocalPoint with guided screening) SPECIMEN ADEQUACY: Satisfactory for evaluation. -Transformation zone component present. CYTOLOGIC INTERPRETATION: Negative for intraepithelial lesion or malignancy Electronically signed out by: JOYCELYN Stephens (ASCP) CLINICAL HISTORY: LMP: 01/04/2019 Post-, Papanicolaou Test Limitations: ??Cervical cytology is a sc reening test with limited sensitivity; regular screening is critical for cancer prevention; Pap tests are p rimarily effective for the diagnosis/prevention of squamous cell carcinoma, not adenocarcinomas or other cancer s. COLLECTION SITE: Client: ??[facility] Location: [place] (S) The technical component of this testing was completed at the [facility], with the professional compo nent performed at the [facility], [address] [place] [id number] ([phone]) Specimen (Source) Anatomical Collection Method Collection Time Re ceived Time Location / / Volume Laterality Cytologic 01/27/2019 9:50 01/28/2019 material AM MILLWORK ESTIMATOR 9:39 AM MILLWORK ESTIMATOR (specimen) Yesi Espinoza Masters DO LAB - [facility] SPECIM EN Performing Organization Address City/State/ZIP Code Phon e Number COPATH documented in this encounter Visit Diagnoses Diagnosis Routine follow-up - Primary Screening for cervical cancer Screening for malignant neoplasm of the cervix History of precipitous delivery Anxiety and depression Dysthymic disorder Current mild episode of major depressive disorder, unspecified whether recurrent (H) documented in this encounter Additional Health Concerns Assessment Noted Time PHQ-9 Depression Total Score: 11 01/27/2019 9:[address] documented as of this encounter Care Teams Maritime Officer Relationship Specialty Start Date End Date No Ref-Primary, Physician PCP - General 02/23/14 documented as of this encounter
--- OUTSIDE RECORDS SUMMARY | 2021-10-01 16:49 | XMS_ITS | Encounter Summary ---
:1995 Author Organization [place] Address [address] [place] [address] Care Team Providers Name Role Phone No Ref-Primary Primary Care Provider Encounter Details Date Type Department Care Team Description 12/13/2018 Travel Social History Tobacco Use Types Packs/Day [...] on filedocumented in this encounter Care Teams Dimensional Engineer Relationship Specialty Start Date End Date No Ref-Primary, Physician PCP - General 02/23/14 documented as of this encounter
--- OUTSIDE RECORDS SUMMARY | 2021-10-01 16:49 | XMS_ITS | Encounter Summary ---
:1995 Author Organization [facility] Address [address] [place] [id number] Care Team Providers Name Role Phone No Ref-Primary Primary Care Provider sOlga DO Unavailable Reason for Visit Reason Comments Hand Injury Encounter Details Date Type Department Care Team Description 02/24/[address] [facility] Adali Philip E, Cl osed fracture of [facility] DO tuft of distal [address] [facility] [place]alanx [place] [address] [id number] [phone] [place], [place] [id number] (Wo rk) Social History Tobacco Use Types Packs/Day Years Used Date Never Smoker Smokeless Tobacco: Never Used Alcohol Use Standard Drinks/Week Comments No 0 (1 standard drink = 0.6 oz pure alcoho l) Sex Assigned at Date Recorded Female 10/01/2020 10:47 AM CDT documented as of this encounter Last Filed Vital Signs Vital Sign Reading Time Taken Comments Blood Pressure 118/74 02/24/2020 9:49 PM PRESSURE CONTROL SUPERVISOR Pulse 88 02/24/2020 9:49 PM PRESSURE CONTROL SUPERVISOR Temperature 36.8 ??C (98.3 ??F) 02/24/2020 9:49 PM PRESSURE CONTROL SUPERVISOR Respiratory Rate 16 02/24/2020 9:49 PM PRESSURE CONTROL SUPERVISOR Oxygen Saturation 99% 02/24/2020 9:49 PM PRESSURE CONTROL SUPERVISOR Inhaled Oxygen Concentration - - Weight - - Height - - Body Mass Index - - documented in this encounter Discharge Instructions AttachmentsThe following attachments cannot be sent through Care Everywhere. Fracture, Finger, Closed (Bangladeshi)RICE (Bangladeshi)documented in this encounter Medications at Time of Discharge Medication Sig Dispensed Refills Start Date End Date EPINEPHrine INJECT 1 PEN UTD FOR 3 06/01/2017 (EPIPEN/ADRENACLICK/OR ALLERGIC REACTION UTD ANY BX GENERIC EQUIV) 0.3 MG/0.3ML injection 2-pack Prenat w/o Take 1 tablet by 90 capsule 3 07/06/2018 U-WZ-Rxwlozm-FA-DHA mouth daily (PNV-DHA) 27-0.6-0.4-300 MG CAPSIndications: HYDROcodone-acetaminoph [...] documented as of this encounter ED Notes Yayo Rios RN - 02/24/2020 9:49 PM CST PT SLAMMED RIGHT 4TH DIGIT IN A HEAVY GLASS DOOR AT WORK. C/O SWELLING AND PAIN. Adali Simpson DO - 02/24/2020 9:44 PM CST History Chief Complaint: Hand Injury The history is provided by the patient. Ava Parker is a 24 year old year old female who presents for evaluation of hand injury. 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 The patient states that she closed the fourth finger onher right hand in a glass door earlier today and her finger became numb. She tells us that she has been taking tylenol but has saw no relief of pain. To note, patient is left handed. She took tylenol with minimal relief. Allergies: Nuts Peanut (Diagnostic) Bledsoe Oil Cat Hair Extract Cockroach Dust Mite Extract Medications: Epipen Advil Mirena Medical History: Anxiety Conduct disorder Depression Gastroesophageal reflux disease PTSD Uncomplicated asthma Amenorhea Allergic rhinitis Surgical History: Foot surgery Myringotomy Left foot magnetic screws placement Family History: Breast cancer Hyperlipidemia Hypertension Diabetes Social History: Smoke: No Alcohol: No Drug: No Review of Systems Skin: Positive for wound (Fourth digit right hand). Neurological: Positive for numbness. All other systems reviewed and are negative. Physical Exam Patient Vitals for the past 24 hrs: BP Temp Temp src Pulse Resp SpO2 02/24/20 2149 118/74 98.3 ??F (36.8 ??C) Oral 88 16 99 % Physical Exam General: Resting comfortably Head: The scalp, face, and head appear normal Eyes: The pupils are normal Conjunctivae and sclera appear normal ENT: The nose is normal Neck: Normal range of motion Skin: No rash or lesions noted. Neuro: Speech is normal and fluent Psych: Awake. Alert. Normal affect. MSK: R. Hand: 4th distal phalynx with soft tissue swelling and ecchymosis to finger pad. TTP at distal phalynx The finger flexors (FDS/FDP) are intact The finger extensors are intact The thumb exam is normal, including: Adduction, abduction, flexion, extension, opposition There are no sensory deficits Median, Ulnar, and Radial nerve function is normal Radial artery pulsations are normal Capillary refill is normal Emergency Department Course Imaging: Radiology findings were communicated with the patient who voiced understanding of the findings. XR [place], 2-3 views left: Minimally displaced fracture of the tuft of the distal phalanx of the right ring finger. Reading perradiology. Interventions: 2158 Tylenol 1,000 mg PO Procedure: Finger Extension Splint Placement Splint was applied and after placement I checked and adjusted the fit to ensure proper positioning. Patient was more comfortable with splint in place. Sensation and circulation are intact after splint placement. Emergency Department Course: Past medical records, nursing notes, and vitals reviewed. 9:59 PM I performed an exam of the patient as documented above. Findings and plan explained to the Patient. Patient discharged home with instructions regarding supportive care, medications, and reasons to return. The importance of close follow-up was reviewed. The patient was prescribed Bittinger and ibuprofen. I personally reviewed the imaging results with the Patient and answered all related questions prior to discharge. Impression & Plan Medical Decision Making: Patient presents with finger pain. Findings, exam, and radiographic evidence are consistent with finger fracture. No evidence of any neurovascular compromise or complete tendon disruption. Simple alumafoam splint placed in ED. No sign of dislocation, or need for reduction. Indications to seek urgentreevaluation and signs compartment syndrome (including but not limited to increasing pain, redness, swelling, fevers, and drainage) were reviewed. Splint applied and pt d/c'd with f/u with PMD/ortho hand in one week. Ice recommended as well as NSAIDS/norco for breakthrough pain. An understanding of the discharge instructions and need for follow up were verbally confirmed by the patient. Diagnosis: ICD-10-CM 1. Closed fracture of tuft of distal phalanx of finger S62.639A Plan: F/U with PMD in 1 week return to ED immediately with worsening symptoms. Diagnosis: ICD-10-CM 1. Closed fracture of tuft of distal phalanx of finger S62.639A Disposition: Discharged to home. Discharge Medications: New Prescriptions HYDROCODONE-ACETAMINOPHEN (NORCO) 5-325 MG TABLET Take 1 tablet by mouth every 4 hours as neededfor pain IBUPROFEN (ADVIL/MOTRIN) 600 MG TABLET Take 1 tablet (600 mg) by mouth every 6 hours as needed for moderate pain Scribe Disclosure: IMatt, am serving as a scribe at 9:59 PM on 02/24/2020 to document services personally performed by Adali Philip DO, based on my observations and the provider's statements to me. Adali Philip DO 02/24/20 4923 SURE CONTROL SUPERVISOR documented in this encounter Plan of Treatment Not on filedocumented as of this encounter Procedures Procedure Name Priority Date/Time Associated Diagnosis Comme nts XR FINGER LT G/E 2 STAT 02/24/2020 10:09 PM Re sults for this VW PRESSURE CONTROL SUPERVISOR procedure are i n the results section. documented in this encounter Results Fingers XR, 2-3 views, left (02/24/2020 10:09 PM PRESSURE CONTROL SUPERVISOR) Anatomical Region Laterality Modality Hand, Left Hand Left Digital Radiography Specimen (Source) Anatomical Collection Method Collection Time Re ceived Time Location / / Volume Laterality 02/24/2020 10:08 PM PRESSURE CONTROL SUPERVISOR Impressions 02/24/2020 10:12 PM PRESSURE CONTROL SUPERVISOR IMPRESSION: Minimally displaced fracture of the tuft of the distal phalanx of the right ring finger. Narrative 02/24/2020 10:12 PM PRESSURE CONTROL SUPERVISOR EXAM: XR FINGER LT G/E 2 VW LOCATION: [facility] DATE/TIME: 02/24/2020 10:08 PM INDICATION: Injury with pain COMPARISON: None. Procedure Note Aj Porter MD - 02/24/2020Formattin g of this note might be different from the original. EXAM: XR FINGER LT G/E 2 VW LOCATION: [facility] DATE/TIME: 02/24/2020 10:08 PM INDICATION: Injury with pain COMPARISON: None. IMPRESSION: Minimally displaced fracture of the tuft of the distal phalanx of the right ring finger. Adali Philip DO IMG DIAGNOSTIC IMAGING ORDER SHEY documented in this encounter Visit Diagnoses Diagnosis Closed fracture of tuft of distal phalan x of finger documented in this encounter Administered Medications Inactive Administered Medications - up to 3 most recent administrations Medication Order MAR Action Action Date Dose Rate Site acetaminophen (TYLENOL) tablet Given 02/24/2020 9:59 PM PRESSURE CONTROL SUPERVISOR 1,0 00 mg 1,000 mg 1,000 mg, Oral, ONCE, On Thu02/24/20 at 2200, For 1 dose, Maximum acetaminophen dose from all sources = 75 mg/kg/day not to exceed 4 gram documented in this encounter Active and Recently Administered Medications Times are shown in PRESSURE CONTROL SUPERVISOR. Scheduled Medication Order 02/22/2020 02/23/2020 02/24/2020 acetaminophen (TYLENOL) tablet 1,000 mg (COMPLETED) 2158 (Given - Provider: Nan Lockett RN) 1,000 mg, Oral, ONCE, Thu02/24/20 at 22 00, For 1 dose, Maximum acetaminophen dose from all sources = 75 mg/kg/day not to exceed 4 gram ibuprofen (ADVIL/MOTRIN) tablet 600 mg 0 (Canceled Entry - Provider: Orders Generic Provider - Comment: Automatically canceled at discontinue of medication order) 600 mg, Oral, ONCE, 02/24/20 at 2220, For 1 dose documented in this encounter Additional Health Concerns Assessment Noted Time PHQ-9 Depression Total Score: 11 01/27/2019 9:[address] documented as of this encounter Care Teams Organizational Development Specialist Relationship Specialty Start Date End Date No Ref-Primary, Physician PCP - General 02/23/14 Masters, Inga Espinoza, DO Assigned OBGYN Provider 01/06/20 06/09/20 [address] [facility] [address] [id number] documented as of this encounter
--- OUTSIDE RECORDS SUMMARY | 2021-10-01 16:49 | XMS_ITS | Encounter Summary ---
:1995 Author Organization [place] Address [address] [place] [address] Care Team Providers Name Role Phone No Ref-Primary Primary Care Provider Olga Ibarra DO Unavailable Encounter Details Date Type Department Care Team Description 02/24/2020 Travel Social History Tobacco Use Types Packs/Day [...] documented as of this encounter Care Teams Driver/Guide Relationship Specialty Start Date End Date No Ref-Primary, Physician PCP - General 02/23/14 Inga Ibarra, Assigned OBGYN Provider 01/06/20 06/09/20 [address] [place] [id number] documented as of this encounter
--- OUTSIDE RECORDS SUMMARY | 2021-10-01 16:49 | XMS_ITS | Encounter Summary ---
:1995 Author Organization [facility] Address [address] [place] [id number] Care Team Providers Name Role Phone No Ref-Primary Primary Care Provider Encounter Details Date Type Department Care Team Description 12/06/2018 Travel Social History Tobacco Use Types Packs/Day [...] on filedocumented in this encounter Care Teams Soft Work Wrapper Examiner Relationship Specialty Start Date End Date No Ref-Primary, Physician PCP - General 02/23/14 documented as of this encounter
--- OUTSIDE RECORDS SUMMARY | 2021-10-01 16:49 | XMS_ITS | Encounter Summary ---
:1995 Author Organization [place] Address [address] [place] [address] Care Team Providers Name Role Phone No Ref-Primary Primary Care Provider Deandre Ramos APRN CNM Unavailable Reason for Visit Reason Comments Dizziness Headache Encounter Details Date Type Department Care Team Description 10/09/2020 Emergency [facility] Cornell Lock ydration; [facility] Emergency Dep t Dayne Elena MD , incidental [address] [facility] [place] [address] [facility] [phone] [place], [place] [address] (Wo rk) Social History Tobacco Use Types [...] Sign Reading Time Taken Comments Blood Pressure 95/64 10/09/2020 6:30 PM CDT Pulse 60 10/09/2020 6:30 PM CDT Temperature 36.4 ??C (97.6 ??F) 10/09/2020 5:14 PM CDT Respiratory Rate 20 10/09/2020 6:00 PM CDT Oxygen Saturation 100% 10/09/2020 6:30 PM CDT Inhaled Oxygen Concentration - - Weight - - Height - - Body Mass Index - - documented in this encounter Discharge Instructions Discharge InstructionsCornell Lock MD - 10/09/2020 7:03 PM CDT As we discussed, I do believe that some of your lightheadedness and headache is due to being dehydrated today. All of your symptoms have resolved here in the ER after 2 bags of IV fluids, and you are now well-hydrated it seems. You need to come back to the ER immediately if you have any vaginal bleeding, or any abdominal pain of any kind. You absolutely need to see your regular CORONER'S JUROR in the next 1 week as well. This is very important. Come back to the ER with any other concerns. Please be sure to be vigilant about staying hydrated. documented in this encounter Medications at Time of Discharge Medication Sig Dispensed Refills Start Date End Date EPINEPHrine INJECT 1 PEN UTD FOR 3 06/01/2017 (EPIPEN/ADRENACLICK/OR ALLERGIC REACTION ANY BX GENERIC EQUIV) UTD 0.3 MG/0.3ML injection 2-pack Prenat w/o Take 1 tablet by 90 capsule 3 07/06/2018 Z-GW-Dipqpjr-FA-DHA mouth daily (PNV-DHA) 27-0.6-0.4-300 MG CAPSIndications: HYDROcodone-acetaminophe Take 1 tablet by 15 tablet 0 02/2310/16/2020 n (NORCO) 5-325 MG mouth every 4 hours tablet as needed for pain ibuprofen (ADVIL/MOTRIN) Take 1 tablet (600 20 tablet 0 01/202010/16/2020 600 MG tablet mg) by mouth every 6 hours as needed for moderate pain documented as of this encounter ED Notes Ende, Aislinn, RN - 10/09/2020 5:13 PM CDT Patient is feeling very light headed and weak. Patient just found out she was . Notes he hasbeen feeling poorly all day, at home her knees gave out and she fell. ABCs intact. Leander Jefferson RN - 10/09/2020 5:12 PM CDT Bed: ED18 Expected date: Expected time: Means of arrival: Comments: Cornell Lock MD - 10/09/2020 5:11 PM CDT History Chief Complaint: Dizziness and Headache The history is provided by the patient. Ava Parker is a 24 year old female, currently about 1 month , with history of asthma, TMJ, migraines, amenorrhea, and previous who presents with dizziness and headache. She explains that ever since she woke up this morning, she has had a pressure in the back of her head. She has been hydrating throughout the day, but explains that after she went inside after being outdoors earlier, she took a nap and upon waking, stood up and he knees gave out. At first she did not think anything of this since her knees give out frequently. She proceeded to drink more water and eat, which caused her to vomit almost immediately. Denies vaginal bleeding or pelvic cramping She feels she is just dehydrated. Review of Systems Genitourinary: Negative for pelvic pain. Neurological: Positive for dizziness and headaches. All other systems reviewed and are negative. Allergies: Nuts Peanut (Diagnostic) Watson Oil Cat Hair Extract Cockroach Dust Mite Extract Medications: Epinephrine injection 2-callie [place] Apri Past Medical History: Anxiety Asthma Conduct disorder Depression GERD PTSD Temporomandibular joint disorder Indication for care in labor and delivery (2019) Encounter for triage in patient Vaginal bleeding Echogenic focus of heart of fetus affecting antepartum care of mother, single gestation Low lying placenta nos or without hemorrhage, second trimester Amenorrhea Antidepressants causing adverse effect in therapeutic use Excessive of frequent menstruation Migraine headache Allergic rhinitis Supervision of normal IUP in primigravida Boxer's fracture Past Surgical History: C open treatment tarsometatarsal joint dislocation Foot surgery, left Myringotomy, insert tube bilateral, combined [place] teeth extraction Family History: Mother: breast cancer Father: hyperlipidemia, hypertension, diabetes, heart disease Social History: Works at [employer] Presents alone Physical Exam Patient Vitals for the past 24 hrs: BP Temp Temp src Pulse Resp SpO2 10/09/20 1830 95/64 -- -- 60 -- 100 % 10/09/20 1815 104/61 -- -- -- -- 100 % 10/09/20 1800 97/63 -- -- 52 20 100 % 10/09/20 1745 -- -- -- 54 -- 100 % 10/09/20 1730 102/78 -- -- 57 11 -- 10/09/20 1715 112/73 -- -- 69 -- 100 % 10/09/20 1714 127/88 97.6 ??F (36.4 ??C) Oral 77 16 100 % Physical Exam Vitals: reviewed by me General: [facility], cooperative, and alert to conversation Eyes: Tracking well, clear conjunctiva BL ENT: MMM, midline trachea. Lungs: No tachypnea, no accessory muscle use. No respiratory distress. CV: Rate as above Abd: Soft, non tender, no guarding, no rebound. Non distended, specifically no right upper quadrant tenderness to palpation. MSK: no joint effusion. No evidence of trauma Skin: No rash Neuro: Clear speech and no facial droop. Ambulatory with strong steady gait. Psych: Not RIS, no e/o AH/VH Emergency Department Course ECG ECG taken at 174, ECG read at 191 Sinus bradycardia with marked sinus arrhythmia. Otherwise normal ECG. Agree with computer interpretation. Rate 59 bpm. PA interval 148 ms. QRS duration 96 ms. QT/QTc 452/447 ms. P-R-T axes 41 74 24. Laboratory: UA with Microscopic: AWNL CBC: WBC 11.9 (H), HGB 12.3, PLT 216 CMP: Glucose 132 (H), o/w WNL (Creatinine: 0.78) Emergency Department Course: Reviewed: I reviewed nursing notes, vitals, past medical history and care everywhere Assessments: 1713 I obtained history and examined the patient as noted above. 1902 I rechecked the patient and explained findings. Interventions: 1812 Normal saline 1,000 mL IV Disposition: The patient was discharged to home. Impression & Plan Medical Decision Making: Ava Parker is a very pleasant 24 year old female who presents to the emergency room with dizziness, headache, and near syncopal event. She did not lose consciousness. She has no abdominal pain and no vaginal bleeding. She tells me she believes she is dehydrated, and given the heat outside today it is certainly a possibility. 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 She is ambulatory, urinating freely here, and asking to go home. Again she has a benign abdomen, and I do think we have a good reason for her near syncopal episode. She has no trauma from when she fell, she describes it as a controlled fall to her knees. She feels comfortable going home, tells me she had not taken much orally today, whole plan for discharge is above and have her follow up with OB in the next 7 days. Covid-19 Ava Parker was evaluated during a global COVID-19 pandemic, which necessitated consideration that the patient might be at risk for infection with the SARS-CoV-2 virus that causes COVID-19. Applicable protocols for evaluation were followed during the patient's care. COVID-19 was considered as part of the patient's evaluation. Diagnosis: ICD-10-CM 1. Dehydration E86.0 2. , incidental Z33.1 Scribe Disclosure: I, Tori Rosario, am serving as a scribe at 5:14 PM on 10/09/2020 to document services personally performed by Cornell Lock based on my observations and the provider's statements to me. Cornell Lock MD 10/09/20 6122 documented in this encounter Plan of Treatment Not on filedocumented as of this encounter Procedures Procedure Name Priority Date/Time Associated Comments Diagnosis ROUTINE UA WITH STAT 10/09/2020 6:17 Results for this MICROSCOPIC REFLEX TO PM CDT proced ure are in CULTURE the results section. EKG 12-LEAD, TRACING STAT 10/09/2020 5:48 Res ults for this ONLY PM CDT procedure are i n the results section. EXTRA TUBE STAT 10/09/2020 5:34 Results for this PM CDT procedure are i n the results section. EXTRA RED TOP TUBE STAT 10/09/2020 5:34 Resul ts for this PM CDT procedure are i n the results section. CBC WITH PLATELETS AND STAT 10/09/2020 5:32 R esults for this DIFFERENTIAL PM CDT procedure are i n the results section. CBC WITH PLATELETS & STAT 10/09/2020 5:32 Res ults for this DIFFERENTIAL PM CDT procedure are i n the results section. COMPREHENSIVE STAT 10/09/2020 5:32 Results fo r this METABOLIC PANEL PM CDT procedure ar e in the results section. documented in this encounter Results UA with Microscopic reflex to Culture (10/09/2020 6:17 PM CDT) [facility] Method Time Signature Color Urine Straw Colorless, 10/09/2020 [facility] Straw, Light 6:39 PM CDT Yellow, Yellow Appearance Urine Clear Clear 10/09/2020 [facility] Y 6:39 PM CDT Glucose Urine Negative Negative 10/09/2020 [facility] mg/dL 6:39 PM CDT Bilirubin Urine Negative Negative 10/09/2020 [facility] 6:39 PM CDT Ketones Urine Negative Negative 10/09/2020 [facility] mg/dL 6:39 PM CDT Specific [place] 1.008 1.003 - 10/09/2020 [facility] Urine 1.035 6:39 PM CDT Blood Urine Negative Negative 10/09/2020 [facility] 6:39 PM CDT pH Urine 7.0 5.0 - 7.0 10/09/2020 [facility] 6:39 PM CDT Protein Albumin Negative Negative 10/09/2020 [facility] Urine mg/dL 6:39 PM CDT Urobilinogen Normal Normal, 2.0 10/09/2020 LABORATORY Urine mg/dL 6:39 PM CDT Nitrite Urine Negative Negative 10/09/2020 [facility] 6:39 PM CDT Leukocyte Negative Negative 10/09/2020 [facility] Esterase Urine 6:39 PM CDT RBC Urine <1 <=2 /HPF 10/09/2020 [facility] 6:39 PM CDT WBC Urine <1 <=5 /HPF 10/09/2020 [facility] 6:39 PM CDT Squamous <1 <=1 /HPF 10/09/2020 [facility] Epithelials 6:39 PM CDT Urine Specimen Anatomical Collection Method Collection Time Receive d Time (Source) Location / / Volume Laterality Urine MID-STREAM URINE Non-blood 10/09/2020 6:17 021 SAMPLE / Unknown Collection / PM CDT 6:23 PM CDT Unknown Narrative [facility] - 10/09/2020 6:39 PM CDT Urine Culture not indicated Cornell Lock MD LAB - URINE ORD ERABLES Performing Organization Address City/State/ZIP Code Phon [place] [address] Care Lab [address] Lab (1st floor, no room number) EKG 12 lead (10/09/2020 5:48 PM CDT) Component Value Ref Range Test Analysis Performed Pathologis t Method Time At Signature Systolic Blood mmHg RADIOLOGY Pressure RESULTS Diastolic Blood mmHg RADIOLOGY Pressure RESULTS Ventricular Rate 59 BPM RADIOLOGY RESULTS Atrial Rate 59 BPM RADIOLOGY RESULTS PA Interval 148 ms RADIOLOGY RESULTS QRS Duration 96 ms RADIOLOGY RESULTS QT 452 ms RADIOLOGY RESULTS QTc 447 ms RADIOLOGY RESULTS P Roberts 41 degrees RADIOLOGY RESULTS R AXIS 74 degrees RADIOLOGY RESULTS T Roberts 24 degrees RADIOLOGY RESULTS Interpretation Sinus bradycardia with marked sinus arrhythmia RADIOLOGY ECG Otherwise normal ECG RESULTS When compared with ECG of 23-OCT-2018 13:31, No significant change was found Confirmed by - EMERGENCY [place] [facility] PHYSICIAN ([id number]), sports editor MONISHA WEAVER ([id number]) on 10/10/2020 6:39:44 AM Specimen Anatomical Collection Method Collection Time Receive d Time (Source) Location / / Volume Laterality 10/09/2020 5:48 10/10/2020 PM CDT 6:39 AM CDT Cornell Lock MD ECG ORDERABLES Performing Organization Address City/State/ZIP Code Phon e Number RADIOLOGY RESULTS Extra Red Top Tube (10/09/2020 5:34 PM CDT) P athologist Signature Hold Specimen JIC 10/09/2020 [facility] 7:31 PM CDT Specimen Anatomical Collection Method / Collection Time Recei nas Time (Source) Location / Volume Laterality Blood STRUCTURE OF RIGHT Venipuncture / 10/09/2020 5:34 UPPER LIMB / Unknown PM CDT 6:23 PM CDT Unknown Cornell Lock MD LAB - BLOOD ORD ERABLES Performing Organization Address City/State/ZIP Code Ph[place] [address] Care Lab [address] Lab (1st floor, no room number) (ABNORMAL) CBC with platelets and differential (10/09/2020 5:32 PM CDT) Patholo gist Method Time Signature WBC Count 11.9 (H) 4.0 - 10/09/2020 [facility] 11.0 6:26 PM CDT 10e3/uL RBC Count 4.27 3.80 - 10/09/2020 [facility] 5.20 6:26 PM CDT 10e6/uL Hemoglobin 12.3 11.7 - 10/09/2020 [facility] 15.7 g/dL 6:26 PM CDT Hematocrit 37.1 35.0 - 10/09/2020 [facility] 47.0 % 6:26 PM CDT MCV 87 78 - 100 10/09/2020 [facility] fL 6:26 PM CDT MCH 28.8 26.5 - 10/09/2020 [facility] 33.0 pg 6:26 PM CDT MCHC 33.2 31.5 - 10/09/2020 [facility] 36.5 g/dL 6:26 PM CDT RDW 12.6 10.0 - 10/09/2020 [facility] 15.0 % 6:26 PM CDT Platelet Count 216 150 - 450 10/09/2020 [facility] 10e3/uL 6:26 PM CDT % Neutrophils 76 % 10/09/2020 [facility] 6:26 PM CDT % Lymphocytes 19 % 10/09/2020 [facility] 6:26 PM CDT % Monocytes 5 % 10/09/2020 [facility] 6:26 PM CDT % Eosinophils 0 % 10/09/2020 [facility] 6:26 PM CDT % Basophils 0 % 10/09/2020 [facility] 6:26 PM CDT % Immature 0 % 10/09/2020 [facility] Granulocytes 6:26 PM CDT NRBCs per 100 0 <1 /100 10/09/2020 [facility] WBC 6:26 PM CDT Absolute 8.9 (H) 1.6 - 8.3 10/09/2020 [facility] Neutrophils 10e3/uL 6:26 PM CDT Absolute 2.3 0.8 - 5.3 10/09/2020 [facility] Lymphocytes 10e3/uL 6:26 PM CDT Absolute 0.6 0.0 - 1.3 10/09/2020 [facility] Monocytes 10e3/uL 6:26 PM CDT Absolute 0.1 0.0 - 0.7 10/09/2020 [facility] Eosinophils 10e3/uL 6:26 PM CDT Absolute 0.0 0.0 - 0.2 10/09/2020 [facility] Basophils 10e3/uL 6:26 PM CDT Absolute 0.1 (H) <=0.0 10/09/2020 [facility] Immature 10e3/uL 6:26 PM CDT Granulocytes Absolute NRBCs 0.0 10e3/uL 10/09/2020 [facility] 6:26 PM CDT Specimen Anatomical Collection Method / Collection Time Recei nas Time (Source) Location / Volume Laterality Blood STRUCTURE OF RIGHT Venipuncture / 10/09/2020 5:32 UPPER LIMB / Unknown PM CDT 6:23 PM CDT Unknown Cornell Lock MD LAB - BLOOD ORD ERABLES Performing Organization Address City/State/ZIP Code [place] [address] Care Lab [address] Lab (1st floor, no room number) (ABNORMAL) Comprehensive metabolic panel (10/09/2020 5:32 PM CDT) [facility] Method Time Signature Sodium 137 133 - 144 10/09/2020 [facility] mmol/L 6:47 PM CDT Potassium 4.0 3.4 - 5.3 10/09/2020 [facility] mmol/L 6:47 PM CDT Chloride 106 94 - 109 10/09/2020 [facility] mmol/L 6:47 PM CDT Carbon Dioxide 25 20 - 32 10/09/2020 [facility]ORY (CO2) mmol/L 6:47 PM CDT Anion Gap 6 3 - 14 10/09/2020 [facility] mmol/L 6:47 PM CDT Urea Nitrogen 14 7 - 30 10/09/2020 [facility] mg/dL 6:47 PM CDT Creatinine 0.78 0.52 - 10/09/2020 [facility] 1.04 mg/dL 6:47 PM CDT Calcium 9.3 8.5 - 10.1 10/09/2020 [facility] mg/dL 6:47 PM CDT Glucose 132 (H) 70 - 99 10/09/2020 [facility] mg/dL 6:47 PM CDT Alkaline 65 40 - 150 10/09/2020 [facility] Phosphatase U/L 6:47 PM CDT AST 12 0 - 45 U/L 10/09/2020 [facility] 6:47 PM CDT ALT 19 0 - 50 U/L 10/09/2020 [facility] 6:47 PM CDT Protein Total 7.1 6.8 - 8.8 10/09/2020 [facility] g/dL 6:47 PM CDT Albumin 3.7 3.4 - 5.0 10/09/2020 [facility] g/dL 6:47 PM CDT Bilirubin Total 0.3 0.2 - 1.3 10/09/2020 [facility] mg/dL 6:47 PM CDT GFR Estimate >90 >60 10/09/2020 [facility] mL/min/1.7 6:47 PM CDT 3m2 Comment: As of September 23, 2020, eGFR is ca lculated by the CKD-EPI creatinine equation, without race adjustment. eGFR can be inf luenced by muscle mass, exercise, and diet. The reported eGFR is an estimation only and is only applicable if the renal function is stable. Specimen Anatomical Collection Method / Collection Time Recei nas Time (Source) Location / Volume Laterality Blood STRUCTURE OF RIGHT Venipuncture / 10/09/2020 5:32 UPPER LIMB / Unknown PM CDT 6:23 PM CDT Unknown Cornell Lock MD LAB - BLOOD ORD ERABLES Performing Organization Address City/State/[facility] [place] [address] Care Lab [address] [facility] Lab (1st floor, no room number) documented in this encounter Visit Diagnoses Diagnosis Dehydration , incidental state, incidental documented in this encounter Administered Medications Inactive Administered Medications - up to 3 most recent administrations Medication Order MAR Action Action Date Dose Rate Site 0.9% sodium chloride BOLUS New Bag 10/09/2020 6:13 PM 1,000 mLs 1000 mL/hr Intravenous, 1,000 mL, CDT ONCE, at 1,000 mL/hr, Administer over 1 Hours, On Thu10/09/20 at 1735, For 1 dose sodium chloride 0.9% infusion at 125 mL/hr, Intravenous, CONTINUOUS, A dminister after the bolus., Starting on Thu10/09/20 at 1835, Until Thu10/09/20 at 2128 documented in this encounter Active and Recently Administered Medications Times are shown in CDT. Scheduled Medication Order 10/07/2020 10/08/2020 10/09/2020 0.9% sodium chloride BOLUS (COMPLETED) 1813 (New Bag - Provider: Tiffanie Garcia, LONG)1842 (Stopped - Provider: Tiffanie Garcia RN) Intravenous, 1,000 mL, ONCE, at 1,000 mL /hr, Administer over 1 Hours, On Thu10/09/20 at 1735, For 1 dose Continuous Medication Order 10/07/2020 10/08/2020 10/09/2020 sodium chloride 0.9% infusion 18 35 (Canceled Entry - Provider: Orders Generic Provider - Comment: Automatically canceled at discontinue of medication order) at 125 mL/hr, Intravenous, CONTINUOUS, A dminister after the bolus., Starting on Thu10/09/20 at 1835, Until Thu10/09/20 at 212 documented in this encounter Additional Health Concerns Assessment Noted Time PHQ-9 Depression Total Score: 01/27/2019 9:[address] documented as of this encounter Care Teams Tax Collector Relationship Specialty Start Date End Date No Ref-Primary, Physician PCP - General 02/23/14 Ramos, Elva Deandre, INFORMATION SYSTEMS ARCHITECT CNM Assigned OBGYN Provider 07/01/20 11/10/20 [address] [place] [id number] documented as of this encounter
--- OUTSIDE RECORDS SUMMARY | 2021-10-01 16:49 | XMS_ITS | Encounter Summary ---
:1995 Author Organization [place] Address [address] [place] [address] Care Team Providers Name Role Phone No Ref-Primary Primary Care Provider Encounter Details Date Type Department Care Team Description 02/07/2019 Travel Social History Tobacco Use Types Packs/Day [...] as of this encounter Care Teams Director Of Special Education Relationship Specialty Start Date End Date No Ref-Primary, Physician PCP - General 02/23/14 documented as of this encounter
--- OUTSIDE RECORDS SUMMARY | 2021-10-01 16:49 | XMS_ITS | Encounter Summary ---
:1995 Author Organization [place] Address [facility] [place] [address] Care Team Providers Name Role Phone No Ref-Primary Primary Care Provider Encounter Details Date Type Department Care Team Description 12/17/2019 Results Only LABORATORY RESULTS Rodrigue Branch MD [address] [facility] [address] [place] [address] (Wo rk) Social History Tobacco Use Types [...] Associated Diagnosis Comme nts COVID-19 VIRUS Routine 12/17/2019 10:52 AM Result s for this (CORONAVIRUS) BY CDT procedure a re in PCR the results section. documented in this encounter Results COVID-19 Virus (Coronavirus) by PCR (12/17/2019 10:52 AM CDT) [facility] Method Time Signature COVID-19 Nasopharyngeal 12/17/2019 [facility] Virus PCR to 11:08 AM [facility] Source CINDY COVID-19 Not Detected 12/18/2019 [facility] Virus PCR to 6:16 PM [facility] AND [facility] - DIAGNOSTIC Result LABORATORY, [facility] Comment: Collection of multiple specimens from th e same patient may be necessary to detect the virus. The possibility of a f alse negative should be considered if the patient's recent exposure or clinica l presentation suggests 2019 nCOV infection and diagnostic tests for other causes of illness are negative. Repeat testing may be considered in this setting. Patient sample was heat inactivated and amplified using the HDPCR SARS-CoV-2 assay ([employer] The HDPCRTM SERAFIN S-CoV-2 assay is a reverse spare fixer real-time polymerase chain reaction (qRT-PCR) test intended for the qualitative detection of nucleic aci d from SARS-CoV-2 in human nasopharyngeal swabs, oropharyngeal swabs, anterior nasal swabs, mid-turbinate nasal swabs a s well as nasal aspirate, nasal wash, and bronchoalveolar lavage (BAL) specime ns from individuals who are suspected of COVID-19 by their healthcare provider . A negative result does not rule out the presence of real-time PCR inhibitors in the specimen or COVID-19 RNA in irais ntrations below the limit of detection of the assay. The possibility of a fals e negative should be considered if the patients recent exposure or clinical pr esentation suggests COVID-19. Additional testing or repeat testing req uires consultation with the laboratory. Nasopharyngeal specimen is the preferred choice for swab-based SARS CoV2 testing. When collection of a nasopharyn geal swab is not possible the following are acceptable alternatives: an oropharyngeal (OP) specimen collected by a healthcare professional, or a nasal mid-turbinate (NMT) swab collected by a healthcare professional or by onsite self-collection (using a flocked tapered swab), or an anterior nares specimen collected by a healthcare profe ssional or by onsite self-collection (using a round foam swab). (Centers for Disease Control) Testing performed by [facility] ([facility]) [address] [facility] [address] The test performance characteristics wer e determined by [facility]. It has not been cleared or approved by the FDA. The laboratory is regulated under the Cl inical Laboratory Improvement Amendments of 1988 (CLIA-88) as qualifie d to perform high-complexity testing. This test is used for clinical purposes. It should not be regarded as investigational or for research. Specimen (Source) Anatomical Collection Method Collection Time Re ceived Time Location / / Volume Laterality Specimen from 12/17/2019 10:52 12/17/2019 nasopharyngeal AM CDT 11:08 AM CDT structure (specimen) Yaakov Branch MD LAB - MICRO GENERAL ORDERABL ES Performing Organization Address City/State/ZIP Code Phon e Number [facility] [address] DIAGNOSTIC LABORATORY, [address] [facility] [facility] [address] [place] [address] [facility] documented in this encounter Visit Diagnoses Not on filedocumented in this encounter Additional Health Concerns Infection Onset Date Last Indicated Resolved Time Rule Out COVID-19 12/17/2019 12/17/2019 12/18/2019 6: 16 PM CDT Assessment Noted Time PHQ-9 Depression Total Score: 01/27/2019 9:[address] documented as of this encounter Care Teams Food Quality Tester Relationship Specialty Start Date End Date No Ref-Primary, Physician PCP - General 02/23/14 documented as of this encounter
--- OUTSIDE RECORDS SUMMARY | 2021-10-01 16:49 | XMS_ITS | Encounter Summary ---
:1995 Author Organization [place] Address [facility] [place] [address] Care Team Providers Name Role Phone No Ref-Primary Primary Care Provider Reason for Visit Reason Onset Date Comments Care Questions on p chaka Imm/Inj 12/06/2018 Flu Shot Encounter Details Date Type Department Care Team Description 12/06/2018 Office [facility] Inga Ibarra for supervision of normal first in third trimester (Primary Dx); [facility] Olga Need for prophylactic vaccination and in oculation against influenza [facility] [address] [place] [address] [place] [address] [place] [address] [address] [address] [place] [address] (Work) [phone] Social History Tobacco Use Types Packs/Day Years Used Date Never Smoker Smokeless Tobacco: Never Used Alcohol Use Standard Drinks/Week Comments No 0 (1 standard drink = 0.6 oz pure alcoho l) Sex Assigned at Date Recorded Female 10/01/2020 10:47 AM CDT documented as of this encounter Last Filed Vital Signs Vital Sign Reading Time Taken Comments Blood Pressure 104/62 12/06/2018 12:07 PM CDT Pulse - - Temperature - - Respiratory Rate - - Oxygen Saturation - - Inhaled Oxygen Concentration - - Weight 87.5 kg (193 lb) 12/06/2018 12:07 PM CDT Height - - Body Mass Index 35.3 12/02/2018 11:35 AM CDT documented in this encounter Progress Notes Inga Ibarra DO - 12/06/2018 11:50 AM CDT Exposed to a gas leak in her apartment complex last week. Symptoms resolved when she got to the hospital. Had normal evaluation in the maternal assessment center, then evaluated in the emergency department. No loss of fluid/vaginal bleeding/regular contractions. + FM -GBS neg -Accepts flu vacc today -Labor precautions. F/U 1wk Inga Ibarra DO documented in this encounter Plan of Treatment Not on filedocumented as of this encounter Visit Diagnoses Diagnosis Encounter for supervision of normal firs t in third trimester - Primary Supervision of normal first Need for prophylactic vaccination and in oculation against influenza documented in this encounter Care Teams Registered Diet Technician Relationship Specialty Start Date End Date No Ref-Primary, Physician PCP - General 02/23/14 documented as of this encounter
--- OUTSIDE RECORDS SUMMARY | 2021-10-01 16:49 | XMS_ITS | Encounter Summary ---
:1995 Author Organization [place] Address [facility] [place] [address] Care Team Providers Name Role Phone No Ref-Primary Primary Care Provider Encounter Details Date Type Department Care Team Description 06/07/2019 Virtual Visit [facility] Dania up Peter Grigsby, [address] [place] [address] [place] [address] [facility] [address] [place] [address] [place] [address] [phone] Social History Tobacco Use Types Packs/Day Years Used Date Never Smoker Smokeless Tobacco: Never Used Alcohol Use Standard Drinks/Week Comments No 0 (1 standard drink = 0.6 oz pure alcoho l) Sex Assigned at Date Recorded Female 10/01/2020 10:47 AM CDT documented as of this encounter Progress Notes Peter Grigsby PA-C - 06/07/2019 12:15 PM CDT Date: 06/07/2019 11:33:02 Clinician: Kevin Grigsby Clinician Patient: Ava Parker Patient : 1995 Patient [address]: [address] [place] [address] Patient Visit Protocol: URI Patient Summary: Ava is a 23 year old ( : 1995 ) female who initiated a Visit for cold, sinus infection, or influenza. When asked the question Please sign me up to receive news, health information and promotions from [employer] Ava responded No. Ava states her symptoms started gradually 3-6 days ago. Her symptoms consist of ear pain, enlarged lymph nodes, myalgia, a sore throat, and malaise. Symptom details Sore throat: Ava reports having mild throat pain (1-3 on a 10 point pain scale), has exudate on her tonsils, and can swallow liquids. The lymph nodes in her neck are enlarged. A rash has not appeared on the skin since the sore throat started. Ava denies having rhinit is, facial pain or pressure, wheezing, cough, nasal congestion, chills, teeth pain, headache, and fever. She also denies double sickening (worsening symptoms after initial improvement), taking antibiotic medication for the symptoms, and having recent facial or sinus surgery in the past 60 days. She isnot experiencing dyspnea. Precipitating events Ava is not sure if she has been exposed to someone with strep throat. She has not recently been exposed to someone with influenza. Ava has been in close contact with the following high risk individuals: children under the age of 5. Pertinent COVID-19 (Coronavirus) information Ava has not traveled internationally or to the areas where COVID-19 (Coronavirus) is widespread, including cruise ship travel in the last 14 days before the start of her symptoms. Ava has not had a close contact with a laboratory-confirmed COVID-19 patient within 14 days of symptom onset. She also has not had a close contact with a suspected COVID-19 patient within 14days of symptom onset. Ava is not a healthcare worker and does not work in a healthcare facility. Triage Point(s) temporarily suspended for COVID- 19 (Coronavirus) screening Ava reported the following symptoms which were previously protocol referral points. These protocol referral points have tem porarily been removed for purposes of COVID-19 (Coronavirus) screening. Meets at least 3/5 centor score criteria Swollen lymph nodes Exudate on tonsils Absence of cough Pertinent medical history Ava does not get yeast infections when she takes antibiotics. Ava does not need a return to work/school note. Weight: 165 lbs Ava does not smoke or use smokeless tobacco. She denies and denies . She is currently menstruating. Weight: 165 lbs MEDICATIONS: No current medications, ALLERGIES: NKDA Clinician Response: Dear Ava, based on your response, you have three symptoms that are concerning for possible strep throat. unfortunately given the current COVID-19 crisis in our state, we are unable to safely test you without exposure risk to COVID-19. Because of this and your course length of symptoms, I would like to treat you for presumed strep throat with an antibiotic. Self care Steps you can take to be as comfortable as possible: Rest. Drink plenty of water and other liquids. Use throat lozenges. Gargle with warm salt water (1/4 teaspoon of salt per 8 ounce glass of water). Suck on frozen items such as popsicles or ice cubes. Drink hot tea with lemon and honey. When to seek care Please be seen in a clinic or urgent care if new symptoms develop, or symptoms become worse. Call 911 or go to the emergency room if you feel that your throat is closing off, you suddenly develop a rash, you are unable to swallow fluids, you are drooling, or you are having difficulty breathing. COVID-19 (Coronavirus) General Information With the increase in the number of COVID-19 (Coronavirus) cases, we understand you may have some questions. Below is some helpfulinformation on COVID-19 (Coronavirus). How can I protect myself and others from the COVID-19 (Coronavirus)? Because there is currently no vaccine to prevent infection, the best way to protect yourself is to avoid being exposed to this virus. Put distance between yourself and other people if COVID-19(Coronavirus) is spreading in your community. The virus is thought to spread mainly from nwlgtn-ft-vobdga. Between people who are in close contact with one another (within about 6 about) for a prolonged period (10 minutes or longer). Through respiratory droplets produced when an infected person coughs or sneezes. The CDC recommends the following additional steps to protect yourself and others: Wash your hands often with soap and water for at least 20 seconds, especially after blowing your nose, coughing, or sneezing; going to the bathroom; and before eating or preparing food. Use an alcohol-based hand aerospace stress engineer that contains at least 60 percent alcohol if soap and water are not available. Avoid touching your eyes, nose and mouth with unwashed hands. Avoid close contact with people who are sick. Stay home when you are sick. Cover your cough or sneeze with a tissue, then throw the tissue in the trash. Clean and disinfect frequently touched objects and surfaces. You can help stop COVID-19 (Coronavirus) by knowing the signs and symptoms: Fever Cough Shortness of breath Contact your healthcare provider if Develop symptoms AND Have been in close contact with a person known to have COVID-19 (Coronavirus) or live in or have recently traveled from an area with ongoing spread of COVID-19 (Coronavirus). Call ahead before you go to a doctor's office or emergency room. Tell them about your recent travel and your symptoms. For the most up to date information, visitthe CDC's website. Self-monitoring Self-monitoring means people should monitor themselves for fever by taking their temperatures twice a day and remain alert for a cough or difficulty breathing. It is important to check your health two times each day for 14 days after a potential exposure to a person with COVID-19 (Coronavirus) or after travel from a location where COVID- 19 (Coronavirus) is widespread. If you have been exposed to a person with COVID- 19 (Coronavirus), it may take up to 14 days to know if you will get sick. Follow the steps below to check and record your health. Take your temperature with a thermometer twice a day, once in the morning and once in the evening, and watch for a cough or difficulty breathing for 14 days. Write down your temperature and any COVID-19 symptoms you may have: feeling feverish, coughing, or difficulty breathing. Stay home from work or school. Do not take public transportation, taxis, or ride-shares. Avoid crowded places (such as shopping centers and movie theaters) and limit your activities in public. Keep your distance from others (about 6 feet or 2 meters). If you get sick with fever, cough, or trouble breathing, contact your healthcare provider and tell them about your recent travel and/or your symptoms. If you need to seek medical care for other reasons, such as dialysis, call ahead to your doctor andtell them about your recent travel. Steps to help prevent the spread of COVID-19 (Coronavirus) if you are sick If you are sick with COVID-19 (Coronavirus) or suspect you are infected with the virus that causes COVID-19 (Coronavirus), follow the steps below to help prevent the disease from spreading to people in your home andcommunity. Stay home except to get medical care. Home isolation may be started in consultation with your healthcare clinician. Separate yourself from other people and animals in your home. Call ahead before visiting your doctor if you have a medical appointment. Wear a facemask when you are around other people. Cover your cough and sneezes. Clean your hands often. Avoid sharing personal household items. Clean and disinfect frequently touched objects and surfaces everyday. You will need to have someone drop off medications or household supplies (if needed) at your house without coming inside or in contact with you or others living in your house. Monitor your symptoms and seek prompt medical care if your illness is worsening (e.g. Difficulty breathing). Discontinue home isolation only in consultation with your healthcare provider. For more detailed and up to date information on what to do if you are sick, visit this link: What to Do If You Are Sick With Coronavirus Disease 2019 (COVID-19). Do I need to be tested for COVID-19 (Coronavirus)? At this time, the limited number of available tests are controlled by the state and local health departments and are being reserved for more seriously ill patients, those with known exposure to confirmed patients, and those with recent travel (within 14 days) to countries with high rates of COVID-19 (Coronavirus). Decisions on which patients receive testing will be based on the local spread of COVID-19 (Coronavirus) as well as the symptoms. Your healthcare provider will make the final decision on whether you should be tested. In the meantime, if you have concerns that you may have been exposed, it is reasonable to practice social distancing. If you are ill with a cold or flu-like illness, please monitor your symptoms and reach out to your healthcare provider if your symptoms worsen. For more up to date information, visit this link: COVID-19 (Coronavirus) Frequently Asked Questionsand Answers. Diagnosis: Pain in throat Diagnosis ICD: R07.0 Prescription: amoxicillin 500 mg oral capsule 20 capsule, 10 days supply. Take 1 capsule by mouth every 12 hours for 10 days. Refills: 0, Refill as needed: no, Allow substitutions: yes Pharmacy: [id number] - - [address] [address] documented in this encounter Plan of Treatment Not on filedocumented as of this encounter Visit Diagnoses Not on filedocumented in this encounter Additional Health Concerns Assessment Noted Time PHQ-9 Depression Total Score: 01/27/2019 9:[address] documented as of this encounter Care Teams Electrician Third Relationship Specialty Start Date End Date No Ref-Primary, Physician PCP - General 02/23/14 documented as of this encounter
--- OUTSIDE RECORDS SUMMARY | 2021-10-01 16:49 | XMS_ITS | Encounter Summary ---
:1995 Author Organization [place] Address [address] [place] [address] Care Team Providers Name Role Phone No Ref-Primary Primary Care Provider Encounter Details Date Type Department Care Team Description 12/16/2018 Travel Social History Tobacco Use Types Packs/Day [...] on filedocumented in this encounter Care Teams Freight Car Inspector Relationship Specialty Start Date End Date No Ref-Primary, Physician PCP - General 02/23/14 documented as of this encounter
--- OUTSIDE RECORDS SUMMARY | 2021-10-01 16:49 | XMS_ITS | Encounter Summary ---
:1995 Author Organization [place] Address [address] [place] [address] Care Team Providers Name Role Phone No Ref-Primary Primary Care Provider Deandre Ramos APRN CNM Unavailable Encounter Details Date Type Department Care Team Description 08/15/2020 Records - [facility] Z HE CONVERSION Provider, Histor ical Social History Tobacco Use Types Packs/Day Years [...] Associated Diagnosis Comme nts CT FACIAL BONES Routine 02/15/2010 12:00 AM Resul ts for this WITHOUT CONTRAST BURRING MACHINE OPERATOR procedure a re in the results section. documented in this encounter Results CT Facial Bones without Contrast (02/15/2010 12:00 AM BURRING MACHINE OPERATOR) Anatomical Region Laterality Modality Head, SUBRAD CT NEURO, UMP CT NEURO, RAD CT Computed Tomography Specimen (Source) Anatomical Location Collection Method / Collectio n Time Received Time / Laterality Volume Narrative 02/15/2010 12:00 AM BURRING MACHINE OPERATOR See Historical Hospital Medical Record f or documentation Procedure Note Provider, Historical - 08/15/2020Formatt ing of this note might be different from the original. See Historical Hospital Medical Record f or documentation Historical Provider IMG CT ORDERABLES documented in this encounter Visit Diagnoses Not on filedocumented in this encounter Additional Health Concerns Assessment Noted Time PHQ-9 Depression Total Score: 11 01/27/2019 9:[address] documented as of this encounter Care Teams Account Officer Relationship Specialty Start Date End Date No Ref-Primary, Physician PCP - General 02/23/14 Elva Ramos APRN CNM Assigned OBGYN Provider 07/01/20 11/10/20 [address] [facility] [address] [place] [address] documented as of this encounter
--- OUTSIDE RECORDS SUMMARY | 2021-10-01 16:49 | XMS_ITS | Encounter Summary ---
:1995 Author Organization [place] Address [address] [place] [address] Care Team Providers Name Role Phone No Ref-Primary Primary Care Provider Deandre Ramos APRN CN Unavailable Encounter Details Date Type Department Care Team Description 10/01/2020 Telephone [facility] Ruby Bo [address] [phone] [place], [place] [phone] (Wo rk) Social History Tobacco Use Types Packs/Day Years Used Date Never Smoker Smokeless Tobacco: Never Used Alcohol Use Standard Drinks/Week Comments No 0 (1 standard drink = 0.6 oz pure alcoho l) Sex Assigned at Date Recorded Female 10/01/2020 10:47 AM CDT documented as of this encounter Miscellaneous Notes Telephone Encounter - Nicole Garcia CMA - 10/01/2020 2:43 PM CDT Sent my chart message informing patient of need to reschedule as Ruby Bo is an acute care only provider. documented in this encounter Plan of Treatment Not on filedocumented as of this encounter Visit Diagnoses Not on filedocumented in this encounter Additional Health Concerns Assessment Noted Time PHQ-9 Depression Total Score: 11 01/27/2019 9:[address] documented as of this encounter Care Teams Change Attendant Relationship Specialty Start Date End Date No Ref-Primary, Physician PCP - General 02/23/14 Elva Ramos APRN CNM Assigned OBGYN Provider 07/01/20 11/10/20 [address] [facility] [address] [address] documented as of this encounter
--- OUTSIDE RECORDS SUMMARY | 2021-10-01 16:49 | XMS_ITS | Encounter Summary ---
:1995 Author Organization [place] Address [address] [place] [address] Care Team Providers Name Role Phone No Ref-Primary Primary Care Provider Encounter Details Date Type Department Care Team Description 03/03/2019 Travel Social History Tobacco Use Types Packs/Day [...] documented as of this encounter Care Teams Negative Developer Relationship Specialty Start Date End Date No Ref-Primary, Physician PCP - General 02/23/14 documented as of this encounter
--- OUTSIDE RECORDS SUMMARY | 2021-10-01 16:49 | XMS_ITS | Encounter Summary ---
:1995 Author Organization [place] Address [facility] [place] [address] Care Team Providers Name Role Phone No Ref-Primary Primary Care Provider Reason for Visit Reason Comments Follow Up 2 week f/u from delivery Encounter Details Date Type Department Care Team Description 12/30/2018 Office [facility] Masters, Inga Anxiet y and depression (Primary Dx); [facility] Olga (spontaneous vaginal delivery) [address] [place] [address] [address] [address] [place] [address] (Work) [phone] Social History Tobacco Use Types Packs/Day Years Used Date Never Smoker Smokeless Tobacco: Never Used Tobacco Cessation: Counseling Given: No Alcohol Use Standard Drinks/Week Comments No 0 (1 standard drink = 0.6 oz pure alcoho l) Sex Assigned at Date Recorded Female 10/01/2020 10:47 AM CDT documented as of this encounter Last Filed Vital Signs Vital Sign Reading Time Taken Comments Blood Pressure 112/68 12/30/2018 10:09 AM CDT Pulse - - Temperature - - Respiratory Rate - - Oxygen Saturation - - Inhaled Oxygen Concentration - - Weight 80.7 kg (178 lb) 12/30/2018 10:09 AM CDT Height - - Body Mass Index 32.56 12/02/2018 11:35 AM CDT documented in this encounter Progress Notes [facility], Inga Espinoza, DO - 12/30/2018 9:50 AM CDT SUBJECTIVE: Ava Parker is a 23 year old female who presents to clinic today for the following health issue(s): Patient presents with: Follow Up: 2 week f/u from delivery HPI: Had precipitous delivery 12/17/2018 attended by the in-house doc. Struggling with being inside all the time. Has gone on some walks. Does not always have the car seat. Really misses running, she is this for emotional and mental benefits as much as physical benefits. Knows that she just has to be patient and wait another couple weeks. Feels overall she is doing okay though. Is good as can be expected with less sleep. Has had a lot going on in her life right now, is moving houses, boyfriend Ruslan just got new electrical engineering teacher position and he has been looking for a place on his own Hx of heavy periods, some cramping in 1yr prior to conception. Thinking IUD. Has been on OCPs in past. Would forget taking the pill. Patient's last menstrual period was 03/21/2018.. Patient is not sexually active, . Using not sexually active for contraception. reports that she has never smoked. She has never used smokeless tobacco. STD testing offered? Declined Health maintenance updated: yes Today's PHQ-2 Score: No flowsheet data found. Today's PHQ-9 Score: PHQ-9 SCORE 12/30/2018 PHQ-9 Total Score 11 Today's MARYSOL-7 Score: MARYSOL-7 SCORE 12/30/2018 Total Score 5 Problem list and histories reviewed & adjusted, [...] hours as needed for other (cramping) ??? Prenat w/o D-FI-Tiyfubw-FA-DHA (PNV-DHA) 27-0.6-0.4-300 MG CAPS Take 1 tablet by mouth daily ??? EPINEPHrine (EPIPEN/ADRENACLICK/OR ANY BX GENERIC EQUIV) 0.3 MG/0.3ML injection 2-pack INJECT 1 PEN UTD FOR ALLERGIC REACTION UTD No current facility-administered medications for this visit. Allergies Allergen Reactions ??? Nuts Nausea and Vomiting and Shortness Of Breath Other reaction(s): Dizziness ??? Peanut (Diagnostic) Shortness Of Breath ??? [place] Oil Shortness Of Breath Other reaction(s): Edema ??? Cat Hair Extract ??? Cockroach ??? Dust Mite Extract ROS: 12 point review of systems negative other than symptoms noted below. OBJECTIVE: BP 112/68 Wt 80.7 kg (178 lb) LMP 03/21/2018 ? Yes BMI 32.56 kg/m?? Body mass index is 32.56 kg/m??. Exam: Constitutional: Appearance: Well nourished, well developed alert, in no acute distress Chest: Respiratory Effort: Breathing unlabored. Neurologic: Mental Status: Oriented X3. Normal strength and tone, sensory exam grossly normal, mentation intact and speech normal. Psychiatric: Mentation appears normal and affect normal/bright. ASSESSMENT/PLAN: ICD-10-CM 1. Anxiety and depression F41.9 F32.9 2. (spontaneous vaginal delivery) O80 -Mood appropriate at this time. Discussed coping mechanisms. Patient has a lot of insight. No redflags right now. Discussed resumption of exercise in 2 weeks. In the meantime encouraged her to get out and about inweather appropriate clothing doing walking activities -Discussed contraceptive options, patient interested in IUD. Due to history of heavy periods with some cramping recommend Mirena. Can do this at her 6-week visit if desired. Discussed abstinence leading up to that visit. Will need hCG. Handout given (15 minutes was spent face to face with the patient today discussing her history, diagnosis, and follow-up plan as noted above. Over 50% of the visit was spent in counseling and coordination of care.) Inga Ibarra DO [facility] documented in this encounter Plan of Treatment Not on filedocumented as of this encounter Visit Diagnoses Diagnosis Anxiety and depression - Primary Dysthymic disorder (spontaneous vaginal delivery) Normal delivery documented in this encounter Additional Health Concerns Assessment Noted Time PHQ-9 Depression Total Score: 11 12/30/2018 10:09 AM C DT documented as of this encounter Care Teams Forestry Engineer Relationship Specialty Start Date End Date No Ref-Primary, Physician PCP - General 02/23/14 documented as of this encounter
--- OUTSIDE RECORDS SUMMARY | 2021-10-01 16:49 | XMS_ITS | Encounter Summary ---
:1995 Author Organization [place] Address [address] [place] [address] Care Team Providers Name Role Phone No Ref-Primary Primary Care Provider Encounter Details Date Type Department Care Team Description 12/17/2019 Travel Social History Tobacco Use Types Packs/Day [...] documented as of this encounter Care Teams Co Founder And President Relationship Specialty Start Date End Date No Ref-Primary, Physician PCP - General 02/23/14 documented as of this encounter
--- OUTSIDE RECORDS SUMMARY | 2021-10-01 16:50 | XMS_ITS | Encounter Summary ---
:1995 Author Organization [facility] Address [address] [place] [address]. [place] [address] Care Team Providers Name Role Phone No Ref-Primary Primary Care Provider Encounter Details Date Type Department Care Team Description 10/04/2018 Orders Only [facility] Inga Ibarra Encounter for supervision of normal first in third trimester (Primary Dx); [facility] Tboi Espinoza, Need for Tdap vaccination [address] [facility] [address] [address] [address] [place] [address] [place] [address] Social History Tobacco Use Types Packs/Day Years Used Date Never Smoker Smokeless Tobacco: Never Used Alcohol Use Standard Drinks/Week Comments No 0 (1 standard drink = 0.6 oz pure alcoho l) Sex Assigned at Date Recorded Female 10/01/2020 10:47 AM CDT documented as of this encounter Plan of Treatment Not on filedocumented as of this encounter Results (ABNORMAL) OB hemoglobin (10/11/2018 9:58 AM CDT) P athologist Signature Hemoglobin 10.8 (L) 11.7 - 15.7 10/11/2018 [place] g/dL 11:19 AM CDT [facility] [place] Specimen Anatomical Collection Method Collection Time Receive d Time (Source) Location / / Volume Laterality Blood specimen 10/11/2018 9:58 9 (specimen) AM CDT 9:59 AM CDT Inga Nelsons DO LAB - BLOOD ORDERABLES Performing Organization Address City/Va Hospital/ZIP Code Phon e Number [facility] [address] [place] [address] [facility] [place] 100 Glucose tolerance gest screen 1 hour (10/11/2018 9:58 AM CDT) P athologist Signature Glu Gest Screen 103 60 - 129 10/11/2018 [place] 1hr 50g mg/dL 11:17 AM CDT [facility] Specimen Anatomical Collection Method Collection Time Receive d Time (Source) Location / / Volume Laterality Blood specimen 10/11/2018 9:58 9 (specimen) AM CDT 9:59 AM CDT Inga Ibarra DO LAB - BLOOD ORDERABLES Performing Organization Address City/Va Hospital/ZIP Code Phon e Number [facility] [address] [place] [phone] [facility] [place] 100 documented in this encounter Visit Diagnoses Diagnosis Encounter for supervision of normal firs t in third trimester - Primary Supervision of normal first Need for Tdap vaccination Need for prophylactic vaccination with c ombined mavxonnswt-zawtzia-apolpwtqt (DTP) vaccine documented in this encounter Care Teams Agency Sales Representative Relationship Specialty Start Date End Date No Ref-Primary, Physician PCP - General 02/23/14 documented as of this encounter
--- OUTSIDE RECORDS SUMMARY | 2021-10-01 16:50 | XMS_ITS | Encounter Summary ---
:1995 Author Organization [place] Address [address] [place] [address] Care Team Providers Name Role Phone No Ref-Primary Primary Care Provider Encounter Details Date Type Department Care Team Description 11/06/2018 Travel Social History Tobacco Use Types Packs/Day [...] on filedocumented in this encounter Care Teams Editor Publications Relationship Specialty Start Date End Date No Ref-Primary, Physician PCP - General 02/23/14 documented as of this encounter
--- OUTSIDE RECORDS SUMMARY | 2021-10-01 16:50 | XMS_ITS | Encounter Summary ---
:1995 Author Organization [facility] Address [address] [place] [address] Care Team Providers Name Role Phone No Ref-Primary Primary Care Provider Encounter Details Date Type Department Care Team Description 08/13/2018 Travel Social History Tobacco Use Types Packs/Day [...] on filedocumented in this encounter Care Teams Printed Circuit Board Pcb Draftsman Relationship Specialty Start Date End Date No Ref-Primary, Physician PCP - General 02/23/14 documented as of this encounter
--- OUTSIDE RECORDS SUMMARY | 2021-10-01 16:50 | XMS_ITS | Encounter Summary ---
:1995 Author Organization [place] Address [facility] [place] [address] Care Team Providers Name Role Phone No Ref-Primary Primary Care Provider Reason for Visit Reason Comments Care 24w5d Encounter Details Date Type Department Care Team Description 09/10/2018 Office [facility] Inga Ibarra for [facility] DO Olga supervision of Cinthya [address] [facility] normal first [address] [facility] 100 [place] [address] trimester [address] [place] [address] (Work) [phone] Social History Tobacco Use Types Packs/Day Years Used Date Never Smoker Smokeless Tobacco: Never Used Alcohol Use Standard Drinks/Week Comments No 0 (1 standard drink = 0.6 oz pure alcoho l) Sex Assigned at Date Recorded Female 10/01/2020 10:47 AM CDT documented as of this encounter Last Filed Vital Signs Vital Sign Reading Time Taken Comments Blood Pressure 104/58 09/10/2018 2:15 PM CDT Pulse - - Temperature - - Respiratory Rate - - Oxygen Saturation - - Inhaled Oxygen Concentration - - Weight 80.7 kg (178 lb) 09/10/2018 2:15 PM CDT Height - - Body Mass Index 32.56 07/21/2018 9:53 AM CDT documented in this encounter Progress Notes Inga Ibarra DO - 09/10/2018 2:10 PM CDT No loss of fluid/vaginal bleeding/regular contractions. + FM -LL placenta. Will plan repeat US 28-32wk - Labor precautions. F/U 3wk for 28wk labs. Inga Ibarra DO documented in this encounter Plan of Treatment Not on filedocumented as of this encounter Visit Diagnoses Diagnosis Encounter for supervision of normal firs t in second trimester Supervision of normal first documented in this encounter Care Teams Outside Medical Sales Representative Relationship Specialty Start Date End Date No Ref-Primary, Physician PCP - General 02/23/14 documented as of this encounter
--- OUTSIDE RECORDS SUMMARY | 2021-10-01 16:50 | XMS_ITS | Encounter Summary ---
:1995 Author Organization [facility] Address [address] [place] [address] Care Team Providers Name Role Phone No Ref-Primary Primary Care Provider Reason for Visit Reason Comments Chemical Exposure Encounter Details Date Type Department Care Team Description 12/02/2018 Emergency [facility] Sherron Brooke MD Exposure to gaseous [facility] Emergency [facility] substance Dept PA [address] [place] [address] [place] [address] [phone] Social History Tobacco Use Types Packs/Day Years Used Date Never Smoker Smokeless Tobacco: Never Used Alcohol Use Standard Drinks/Week Comments No 0 (1 standard drink = 0.6 oz pure alcoho l) Sex Assigned at Date Recorded Female 10/01/2020 10:47 AM CDT documented as of this encounter Last Filed Vital Signs Vital Sign Reading Time Taken Comments Blood Pressure 116/78 12/02/2018 1:46 PM CDT Pulse 62 12/02/2018 1:46 PM CDT Temperature 36.9 ??C (98.5 ??F) 12/02/2018 1:46 PM CDT Respiratory Rate 18 12/02/2018 1:46 PM CDT Oxygen Saturation 100% 12/02/2018 1:46 PM CDT Inhaled Oxygen Concentration - - Weight - - Height - - Body Mass Index - - documented in this encounter Discharge Instructions Discharge InstructionsSherron Brooke MD - 12/02/2018 1:35 PM CDT Contact your primary care provider should her symptoms persist. I expect you will feel better quickly. If you have loss of consciousness, severe headache, or confusion is important to seek care rightaway. If you feel your condition has changed or worsened, please call your doctor or return to the emergency department right away. documented in this encounter Medications at Time of Discharge Medication Sig Dispensed Refills Start Date End Date EPINEPHrine INJECT 1 PEN UTD FOR 3 06/01/2017 (EPIPEN/ADRENACLICK/OR ALLERGIC REACTION ANY BX GENERIC EQUIV) UTD 0.3 MG/0.3ML injection 2-pack Prenat w/o Take 1 tablet by 90 capsule 3 07/06/2018 S-ML-Nyygwiw-FA-DHA mouth daily (PNV-DHA) 27-0.6-0.4-300 MG CAPSIndications: ibuprofen (ADVIL/MOTRIN) Take 1 tablet (600 30 tablet 0 06/201802/24/2020 600 MG mg) by mouth every 6 tabletIndications: hours as needed for Indication for care in other (cramping) labor or delivery ranitidine (ZANTAC) 75 Take 150 mg by mouth 0 12/13/2018 MG tablet 2 times daily as needed documented as of this encounter ED Notes Joanne Boyd RN - 12/02/2018 12:21 PM CDT Bed: ED09 Expected date: Expected time: Means of arrival: Comments: triage Joanne Boyd, LONG - 12/02/2018 12:20 PM CDT Pt was at her grandmothers [place] today when there was some sort of gas/chemical exposure, unknown. Pt is 35 weeks , was already seen by MAC. Pt states feeling dizzy when exposed Sherron Brooke MD - 12/02/2018 12:19 PM CDT History Chief Complaint: Chemical Exposure HPI Ava Parker is a 22 year old female who is in her third trimester who presents with chemical exposure. She was at a halfway this morning when she began to smell a scent similar to an oven being turned on that resembled natural gas. She experienced an instant reaction developing a headache and becoming nauseous. The patient stated that she had a visual disturbance lasting for under a minute where everything went in slow motion. She reports that her baby has been more active since the gasencounter. In response, they contacted the nurse line and were instructed to go into the emergency department. The patient states that she still feels a headache and tiredness. She denies current wheezing, nausea or vomiting. She reports that she has not been nauseous during the third trimester of but does note that she has been experiencing more allergic reactions to instant oatmeal and sunflower oil. Allergies: Nuts [place] oil Cat hair Cockroach Dust mites Medications: Epipen Past Medical History: Anxiety Depression Conduct disorder Depression GERD PTSD Migraine headache Uncomplicated asthma Past Surgical History: Foot surgery Myringotomy insert tube bilateral Orthopedic surgery Family History: Breast cancer Hyperlipidemia Hypertension Diabetes Social History: The patient was accompanied to the ED by mother. Smoking Status: Never Smoker Smokeless Tobacco: Never Used Alcohol Use: No Drug Use: No Marital Status: Single Review of Systems Eyes: Positive for visual disturbance. Respiratory: Negative for wheezing. Gastrointestinal: Positive for nausea. Negative for vomiting. Neurological: Positive for headaches. 10 point review of systems performed and is negative except as above and in HPI. Physical Exam Patient Vitals for the past 24 hrs: BP Temp Pulse Resp SpO2 12/02/18 1346 116/78 98.5 ??F (36.9 ??C) 62 18 100 % 12/02/18 1224 119/84 -- 71 -- 100 % Physical Exam General: No distress. Head: No signs of trauma. Mouth/Throat: Oropharynx moist. Eyes: Conjunctivae are normal. Pupils are equal.. Neck: Normal range of motion. Resp:No respiratory distress. Abdomen: Gravid uterus MSK: Normal range of motion. No obvious deformity. Neuro: Cranial nerves intact. Sensation and strength intact x4. Psych: normal mood and affect. behavior is normal. Emergency Department Course Laboratory: Laboratory findings were communicated with the patient who voiced understanding of the findings. Carbon monoxide: 0.6 Emergency Department Course: Nursing notes and vitals reviewed. 1230 I performed an exam of the patient as documented above. IV was inserted and blood was drawn for laboratory testing, results above. 0009 I returned to update the patient. Findings and plan explained to the Patient. Patient discharged home with instructions regarding supportive care, medications, and reasons to return. The importance of close follow-up was reviewed. Impression & Plan Medical Decision Making: Ava Parker is a 22 year old female who presents for evaluation of possible gas exposure. Carbon monoxide levels are normal; based on symptoms and level of elevation will plan not to treat at this time. Pt is but monitoring already undertaken upstairs without concern. Outpatient management is indicated - she will return for worsening or recurring symptoms as if these return, theymay be due to a cause other than gas exposure. Diagnosis: ICD-10-CM 1. Exposure to gaseous substance Z57.5 Disposition: The patient is discharged to home. Discharge Medications: No discharge medication. Scribe Disclosure: INicole, am serving as a scribe at 1:25 PM on 12/02/2018 to document services personally performed by Sherron Brooke MD based on my observations and the provider's statements to me. EMERGENCY DEPARTMENT Sherron Brooke MD 12/06/18 1112 documented in this encounter Plan of Treatment Not on filedocumented as of this encounter Procedures Procedure Name Priority Date/Time Associated Diagnosis Comme nts CARBON MONOXIDE STAT 12/02/2018 1:06 PM Resul ts for this CDT procedure are i n the results section. documented in this encounter Results Carbon monoxide (12/02/2018 1:06 PM CDT) P athologist Signature Carbon Monoxide 0.6 0 - 2 % 12/02/2018 [place] 1:22 PM CDT [facility] Specimen Anatomical Collection Method Collection Time Receive d Time (Source) Location / / Volume Laterality Blood specimen 12/02/2018 1:06 9 (specimen) PM CDT 1:09 PM CDT Sherron Brooke MD LAB - BLOOD ORDERABLES Performing Organization Address City/State/ZIP Code Phon e Number [facility] [address] [address] [phone] [facility] [address] [address], [facility] [phone] documented in this encounter Visit Diagnoses Diagnosis Exposure to gaseous substance documented in this encounter Care Teams Ethnology Professor Relationship Specialty Start Date End Date No Ref-Primary, Physician PCP - General 02/23/14 documented as of this encounter
--- OUTSIDE RECORDS SUMMARY | 2021-10-01 16:50 | XMS_ITS | Encounter Summary ---
:1995 Author Organization [facility] Address [address] [place] [address] Care Team Providers Name Role Phone No Ref-Primary Primary Care Provider Encounter Details Date Type Department Care Team Description 09/03/2018 Travel Social History Tobacco Use Types Packs/Day [...] on filedocumented in this encounter Care Teams Strip Cleaner Relationship Specialty Start Date End Date No Ref-Primary, Physician PCP - General 02/23/14 documented as of this encounter
--- OUTSIDE RECORDS SUMMARY | 2021-10-01 16:50 | XMS_ITS | Encounter Summary ---
:1995 Author Organization [facility] Address [facility] [place] [address] Care Team Providers Name Role Phone No Ref-Primary Primary Care Provider Reason for Visit Reason Comments Nausea Encounter Details Date Type Department Care Team Description 12/02/2018 Hospital Encounter [facility] MastersInga [facility], [address] [place] [address] [place] [id number] (Wo rk) Social History Tobacco Use Types Packs/Day Years Used Date Never Smoker Smokeless Tobacco: Never Used Alcohol Use Standard Drinks/Week Comments No 0 (1 standard drink = 0.6 oz pure alcoho l) Sex Assigned at Date Recorded Female 10/01/2020 10:47 AM CDT documented as of this encounter Last Filed Vital Signs Vital Sign Reading Time Taken Comments Blood Pressure 108/68 12/02/2018 11:31 AM CDT Pulse - - Temperature 36.6 ??C (97.9 ??F) 12/02/2018 11:32 AM CDT Respiratory Rate 16 12/02/2018 11:35 AM CDT Oxygen Saturation 95% 12/02/2018 11:41 AM CDT Inhaled Oxygen Concentration - - Weight 88.5 kg (195 lb) 12/02/2018 11:35 AM CDT Height 157.5 cm (5' 2) 12/02/2018 11:35 AM CDT Body Mass Index 35.67 12/02/2018 11:35 AM CDT documented in this encounter Medications at Time of Discharge Medication Sig Dispensed Refills Start Date End Date EPINEPHrine INJECT 1 PEN UTD FOR 3 06/01/2017 (EPIPEN/ADRENACLICK/OR ALLERGIC REACTION ANY BX GENERIC EQUIV) UTD 0.3 MG/0.3ML injection 2-pack Prenat w/o Take 1 tablet by 90 capsule 3 07/06/2018 B-EC-Yzydbzm-FA-DHA mouth daily (PNV-DHA) 27-0.6-0.4-300 MG CAPSIndications: ibuprofen (ADVIL/MOTRIN) Take 1 tablet (600 30 tablet 0 06/201802/24/2020 600 MG mg) by mouth every 6 tabletIndications: hours as needed for Indication for care in other (cramping) labor or delivery ranitidine (ZANTAC) 75 Take 150 mg by mouth 0 12/13/2018 MG tablet 2 times daily as needed documented as of this encounter Progress Notes Nereyda Paiz MD - 12/02/2018 12:13 PM CDT NST REVIEW 22 yo presented for exposure to noxious gas NST done at 36+5. Baseline 150, moderate variability, +accels, no decels, category 1 [place]:none Patient d[facility]'d from [facility] to [place] documented in this encounter Miscellaneous Notes Plan of Care - Arlyn Cherry RN - 12/02/2018 12:13 PM CDT PT transferred to ER via by RN. Plan of Care - Arlyn Cherry RN - 12/02/2018 12:[address] Ibarra phoned [facility]. Update given. Per Dr Ibarra, send patient to ER for further evaluation. Plan of Care - Arlyn Cherry RN - 12/02/2018 11:41 AM CDT PT arrived to [facility] from ER via WC. PT ambulated from desk to MAC 3. PT placed on EFM and VS obtained.PT states she was at her grandmothers assisted living facility and smelled a deisel smell as she exited the elevator. PT states she became nauseous and dizzy. She helped her grandmother get out of area and PT went back to get something and smelled odor again and had tunnel vision and everything seemed like it was in slow motion. PT states the baby became very active after exposure. PT went to ER and was sent up to [facility]. PT states she now has a headache and I very tired. VSS and O2 sats 95% on room air. FHt CAT [address] Stacey ravi. documented in this encounter Plan of Treatment Not on filedocumented as of this encounter Procedures Procedure Name Priority Date/Time Associated Diagnosis Comme nts NON-STRESS TEST - 12/02/2018 12:00 AM CDT HIM SCAN documented in this encounter Results NON-STRESS TEST - HIM SCAN (12/02/2018 12:00 AM CDT) Specimen (Source) Anatomical Location Collection Method / Collectio n Time Received Time / Laterality Volume 12/02/2018 Narrative This result has an attachment that is no t available. Provider Scan PROCEDURES documented in this encounter Visit Diagnoses Diagnosis Nausea Nausea alone documented in this encounter Administered Medications Inactive Administered Medications - up to 3 most recent administrations Medication Order MAR Action Action Date Dose Rate Site NO Rho (D) immune globulin (RhoGam) need ed - mother Rh POSITIVE CONTINUOUS PRN, Starting on Holli 12/02/18 at 1153, Until Holli 12/02/18 at 1219 ondansetron (ZOFRAN) injection 4 mg 4 mg, Intravenous, EVERY 6 HOURS PRN, nausea, vomiting , Administer over 2-5 Minutes, Starting on Holli 12/02/18 at 1151, If nausea no t resolved in 15 minutes, notify provider before proceeding to prochlorperazine (COMPAZINE) [if ordered]. Irritant. For ordered IV doses 0.1-4 mg, give IV Push undiluted over 2-5 minutes. documented in this encounter Active and Recently Administered Medications Times are shown in CDT. PRN Medication Order 11/30/2018 12/01/2018 12/02/2018 NO Rho (D) immune globulin (RhoGam) needed - mother Rh POSITIVE CONTINUOUS PRN, Starting Holli 12/02/18 at 1153, Until Holli 12/02/18 at 1219 ondansetron (ZOFRAN) injection 4 mg 4 mg, Intravenous, EVERY 6 HOURS PRN, na usea, vomiting, Administer over 2-5 Minutes, Starting Holli 12/02/18 at 1151, If nausea not resolved in 15 minutes, notify provider before proceeding to prochlorpera zine (COMPAZINE) [if ordered]. Irritant. For ordered IV doses 0.1-4 mg, give IV Push undiluted over 2-5 minutes. documented in this encounter Care Teams Ceo Relationship Specialty Start Date End Date No Ref-Primary, Physician PCP - General 02/23/14 documented as of this encounter
--- OUTSIDE RECORDS SUMMARY | 2021-10-01 16:50 | XMS_ITS | Encounter Summary ---
:1995 Author Organization [facility] Address [address] [place] [address] Care Team Providers Name Role Phone No Ref-Primary Primary Care Provider Encounter Details Date Type Department Care Team Description 10/11/2018 Travel Social History Tobacco Use Types Packs/Day [...] on filedocumented in this encounter Care Teams Food Science Professor Relationship Specialty Start Date End Date No Ref-Primary, Physician PCP - General 02/23/14 documented as of this encounter
--- OUTSIDE RECORDS SUMMARY | 2021-10-01 16:50 | XMS_ITS | Encounter Summary ---
:1995 Author Organization [facility] Address [address] [place] [address]. [place] [address] Care Team Providers Name Role Phone No Ref-Primary Primary Care Provider Reason for Visit Diagnostic Imaging Ultrasound (Routine) - Closed Specialty Diagnoses / Procedures Referred By Contact Refer red To Contact Diagnoses Encounter for supervision of normal first in first trimester Masters, Inga Espinoza, DO Procedures US OB > 14 Weeks [address] [place] [address] Referral ID Status Reason Start Date Expiration Date Visits Requ ested Visits Authorized [id number] Closed 07/19/2018 07/19/2019 1 1 Encounter Details Date Type Department Care Team Description 08/13/2018 Ancillary Procedure [facility] Tobi na supervision of normal [address] first pre gnancy in [place] first trimester [address] [place] [id number] Social History Tobacco Use Types Packs/Day Years [...] Date/Time Associated Diagnosis Comme nts US OB > 14 WEEKS Routine 08/13/2018 2:33 PM Encounter for Res ults for this CDT supervision of normal proced ure are in first in the resul ts first trimester section. documented in this encounter Results US OB > 14 Weeks (08/13/2018 2:33 PM CDT) Anatomical Region Laterality Modality Abdomen/Pelvis Ultrasound Specimen (Source) Anatomical Location Collection Method / Collectio n Time Received Time / Laterality Volume Narrative 08/19/2018 1:10 PM CDT Obstetrical Ultrasound Report OB U/S ? Survey - Transabdominal ??[facility] Referring Provider: Dr. Inga Nelsons Template Layout Worker: Dian Sam Indication: ?? Anatomy Survey ?? Dating (mm/dd/yyyy): LMP: Patient's last menstrual period was 03/21/2018. ?EDC: ?? Estimated Date of Delivery: Dec 26, 2018 ?GA by LMP: ? 20w5d ?? Current Scan On: 08/13/18 ?EDC: ??12/29/18 ?GA by Current Scan: ? 20w2d The calculation of the gestational age b y current scan was based on BPD, HC, AC and FL. Anatomy Scan: [place] gestation. Biometry: BPD 4.82 cm 20w4d HC 17.78 cm 20w2d AC 14.82 cm 20w1d FL 3.31 cm 19w6d Cerebellum 2.09 cm 19w6d CM 4.22mm ?? NF 2.79mm ?? Lat Vent 5.36mm ?? EFW (lbs/oz) 0 lbs ? 12ozs ?? EFW (g) 340 g ? heart activity: Rate and rhythm is within normal limits. heart rate: 157bpm presentation: Breech Amniotic fluid: 13.37cm ?? Cord: 3 Vessel Cord Placenta: Posterior ??Low-lying placenta 1.7cm from cervix Anatomy: Visualized with normal appearance: Head, Brain, Face, Spine, Neck, Skin, Chest, LVOT, RVOT, Abdominal Wall, Gastr ointestinal Tract, Stomach, Kidneys, Bladder, Extremities, Diaphragm , Face/Profile and Female Not visualized on today? s ultrasound: NA Abnormal appearance: Echogenic focus in heart ?? Maternal Structures: Cervix: The cervix appears long and clos ed. Cervical Length: 3.92cm Right Adnexa: Normal Left Adnexa: Normal ?? Impression: ?? Growth and anatomy survey appears normal . An isolated finding of an echogenic intracardiac focus is observed .She has had normal cell-free DNA testing. This finding in an otherwise lo w risk woman does not confer an increased risk of aneuploidy. No f urther follow up needed. There is no association of EIF with structural ca rdiac disease, so further evaluation of EIF is not necessary eithe r prenatally or postnatally. presentation is breech, placenta is low lying and posterior. Recommend repeat ultrasound for placenta l location 28-32 weeks. anomalies may be present but not d ectected. nIga Ibarra, DO ? Inga Ibarra DO IMG US ORDERABLES documented in this encounter Visit Diagnoses Diagnosis Encounter for supervision of normal firs t in first trimester Supervision of normal first documented in this encounter Care Teams Professor Of Poultry Science Relationship Specialty Start Date End Date No Ref-Primary, Physician PCP - General 02/23/14 documented as of this encounter
--- OUTSIDE RECORDS SUMMARY | 2021-10-01 16:50 | XMS_ITS | Encounter Summary ---
:1995 Author Organization [place] Address [facility] [place] [address] Care Team Providers Name Role Phone No Ref-Primary Primary Care Provider Reason for Visit Reason Onset Date Comments Symptoms 09/03/2018 Encounter Details Date Type Department Care Team Description 09/03/2018 Telephone [facility], Arielle Espinoza, Symptoms Women David DO [address] [facility] [address] [facility] [address] [phone] [place] [id number] (Wo rk) Social History Tobacco Use Types Packs/Day Years Used Date Never Smoker Smokeless Tobacco: Never Used Alcohol Use Standard Drinks/Week Comments No 0 (1 standard drink = 0.6 oz pure alcoho l) Sex Assigned at Date Recorded Female 10/01/2020 10:47 AM CDT documented as of this encounter Miscellaneous Notes Telephone Encounter - Alta Mukherjee RN - 09/03/2018 3:02 PM CDT Informed pt of normal UA results. Pt is feeling better and is laying down and resting. Pt will call if her pain returns or she has any cramping. Pt knows she can still call after hours. Alta Mukherjee RN on 09/03/2018 at 3:03 PM Telephone Encounter - Alta Mukherjee RN - 09/03/2018 12:16 PM CDT Pt calling regarding pelvic pain she has been having since she woke up this morning along with pelvic pressure Difficult for pt to verbalize the pain/pressure-describes it is similar to menstrual cramps but morepain than crampy-feels like she can't get comfortable- pain is worse when she is active Does not feel like contractions-no tightening Urinating normally-no s/s of UTI except her urine seems cloudy Normal BM today Well hydrated No vaginal bleeding and/or leaking of fluid Advised rest, tylenol, warm bath, hydration-discussed round ligament pain Consulted with Dr. Ibarra-pt can come in for dop tones and leave a urine Pt agrees to plan-transferred to scheduling Alta Mukherjee RN on 09/03/2018 at 12:37 PM Addendum Note - Alta Mukherjee RN - 09/03/2018 12:16 PM CDT Addended by: ALTA MUKHERJEE on: 09/03/2018 12:40 PM Modules accepted: Orders documented in this encounter Plan of Treatment Not on filedocumented as of this encounter Results (ABNORMAL) UA reflex to Microscopic (09/03/2018 1:35 PM CDT) [facility] Method Time Signature Color Urine Yellow 09/03/2018 [facility] 1:52 PM CDT [facility] Appearance Urine Clear 09/03/2018 [facility] 1:52 PM CDT [facility] Glucose Urine Negative NEG^Negat 09/03/2018 [facility] [place] mg/dL 1:52 PM CDT [facility] Bilirubin Urine Negative NEG^Negat 09/03/2018 [facility] [place] 1:52 PM CDT [facility] Ketones Urine Negative NEG^Negat 09/03/2018 [facility] [place] mg/dL 1:52 PM CDT [facility] Specific [place] 1.020 1.003 - 09/03/2018 [facility] Urine 1.035 1:52 PM CDT [facility] Blood Urine Negative NEG^Negat 09/03/2018 [facility] [place] 1:52 PM CDT [facility] pH Urine 7.5 (H) 5.0 - 7.0 09/03/2018 [facility] pH 1:52 PM CDT [facility] Protein Albumin Negative NEG^Negat 09/03/2018 [facility] Urine [place] mg/dL 1:52 PM CDT [facility] Urobilinogen 0.2 0.2 - 1.0 09/03/2018 [facility] Urine EU/dL 1:52 PM CDT [facility] Nitrite Urine Negative NEG^Negat 09/03/2018 [facility] [place] 1:52 PM CDT [facility] Leukocyte Trace (A) NEG^Negat 09/03/2018 [facility] Esterase Urine [place] 1:52 PM CDT [facility] Source Midstream 09/03/2018 [facility] Urine 1:37 PM CDT [facility] Specimen (Source) Anatomical Collection Method Collection Time Re ceived Time Location / / Volume Laterality Examination of 09/03/2018 1:35 9 midstream urine PM CDT 1:36 PM CDT specimen (procedure) Inga Espinoza Masters DO LAB - URINE ORDERABLES Performing Organization Address City/State/ZIP Code Phon e Number [facility] [address] [place] [address] [facility] [place] 100 documented in this encounter Visit Diagnoses Diagnosis Cloudy urine - Primary Other nonspecific finding on examination of urine documented in this encounter Care Teams Handbag Designer Relationship Specialty Start Date End Date No Ref-Primary, Physician PCP - General 02/23/14 documented as of this encounter
--- OUTSIDE RECORDS SUMMARY | 2021-10-01 16:50 | XMS_ITS | Encounter Summary ---
:1995 Author Organization [place] Address [address] [place] [address] Care Team Providers Name Role Phone No Ref-Primary Primary Care Provider Encounter Details Date Type Department Care Team Description 11/08/2018 Travel Social History Tobacco Use Types Packs/Day [...] on filedocumented in this encounter Care Teams Director Foundation Relationship Specialty Start Date End Date No Ref-Primary, Physician PCP - General 02/23/14 documented as of this encounter
--- OUTSIDE RECORDS SUMMARY | 2021-10-01 16:50 | XMS_ITS | Encounter Summary ---
:1995 Author Organization [place] Address [address] [place] [address] Care Team Providers Name Role Phone No Ref-Primary Primary Care Provider Encounter Details Date Type Department Care Team Description 10/25/2018 Travel Social History Tobacco Use Types Packs/Day [...] on filedocumented in this encounter Care Teams Manager Fixed Income Relationship Specialty Start Date End Date No Ref-Primary, Physician PCP - General 02/23/14 documented as of this encounter
--- OUTSIDE RECORDS SUMMARY | 2021-10-01 16:50 | XMS_ITS | Encounter Summary ---
:1995 Author Organization [place] Address [facility] [place] [address] Care Team Providers Name Role Phone No Ref-Primary Primary Care Provider Reason for Visit Reason Comments Labor Encounter Details Date Type Department Care Team Description 11/06/2018 - Hospital Encounter [facility] Eulalio Lucas 11/07/2018 [facility] MD [place] [address] [place] [address] [place] [phone] [place] [address] Social History Tobacco Use Types Packs/Day Years Used Date Never Smoker Smokeless Tobacco: Never Used Alcohol Use Standard Drinks/Week Comments No 0 (1 standard drink = 0.6 oz pure alcoho l) Sex Assigned at Date Recorded Female 10/01/2020 10:47 AM CDT documented as of this encounter Last Filed Vital Signs Vital Sign Reading Time Taken Comments Blood Pressure 107/66 11/06/2018 11:37 PM CDT Pulse - - Temperature 36.3 ??C (97.3 ??F) 11/06/2018 11:37 PM CDT Respiratory Rate 16 11/06/2018 11:37 PM CDT Oxygen Saturation - - Inhaled Oxygen Concentration - - Weight - - Height - - Body Mass Index - - documented in this encounter Discharge Instructions Discharge InstructionsBidelcordele, Ayana M, RN - 11/07/2018 1:11 AM CDT Discharge Instruction for Undelivered Patients You were seen for: Labor Assessment We Consulted: Dr Lucas You had (Test or Medicine): monitoring and urine test. Diet: Drink 8 to 12 glasses of liquids (milk, juice, water) every day. You may eat meals and snacks. Activity: Count kicks everyday (see handout) Call your doctor or nurse chorus master if your baby is moving less than usual. Call your provider if you notice: Swelling in your face or increased swelling in your hands or legs. Headaches that are not relieved by Tylenol (acetaminophen). Changes in your vision (blurring: seeing spots or stars.) Nausea (sick to your stomach) and vomiting (throwing up). Weight gain of 5 pounds or more per week. Heartburn that doesn't go away. Signs of bladder infection: pain when you urinate (use the toilet), need to go more often and more urgently. The bag of coe (rupture of membranes) breaks, or you notice leaking in your underwear. Bright red blood in your underwear. Abdominal (lower belly) or stomach pain. For first baby: Contractions (tightening) less than 5 minutes apart for one hour or more. *If less than 34 weeks: Contractions (tightenings) more than 6 times in one hour. Increase or change in vaginal discharge (note the color and amount) Other: Remember to stay hydrated!!! Follow-up: As scheduled in the clinic on Thursday11/08/[address] Ibarra. documented in this encounter Medications at Time of Discharge Medication Sig Dispensed Refills Start Date End Date EPINEPHrine INJECT 1 PEN UTD FOR 3 06/01/2017 (EPIPEN/ADRENACLICK/OR ALLERGIC REACTION ANY BX GENERIC EQUIV) UTD 0.3 MG/0.3ML injection 2-pack Prenat w/o Take 1 tablet by 90 capsule 3 07/06/2018 C-DR-[id number]-FA-DHA mouth daily (PNV-DHA) 27-0.6-0.4-300 MG CAPSIndications: ranitidine (ZANTAC) 75 Take 150 mg by mouth 0 12/13/2018 MG tablet 2 times daily as needed documented as of this encounter Miscellaneous Notes Plan of Care - Ayana Lorenzo RN - 11/07/2018 1:27 AM CDT Data: [facility] Reason for maternal/ assessment per patient is Labor . Patient is a . record reviewed. OB History Para Term AB Living 1 0 0 0 0 0 SAB TAB Ectopic Multiple Live Births 0 0 0 0 0 # Outcome Date GA Lbr Hawk/2nd Weight Sex Delivery Anes PTL Lv 1 Current Medical History: Past Medical History: Diagnosis Date ??? Anxiety ??? Conduct disorder ??? Depression ??? Gastroesophageal reflux disease ??? PTSD (post-traumatic stress disorder) ??? Uncomplicated asthma excercise induced . Gestational Age 33w0d. VSS. Cervix: anterior, fingertip dilated, thick and firm. movement present. Patient denies backache, vaginal discharge, pelvic pressure, UTI symptoms, GI problems, bloody show, vaginal bleeding, edema, headache, visual disturbances, epigastric or URQ pain, abdominal pain, rupture of membranes. Support persons Ruslan and pt mother present. Action: Verbal consent for EFM. Triage assessment completed. EFM applied for assessment in relation to contractions. Uterine assessment shows occasional contractions. assessment: Presumed adequate oxygenation documented (see flow record). Patient instructed to report change in movement, vaginal leaking of fluid or bleeding, abdominal pain, or any concerns related to the to her nurse/physician. Response: Dr. Lucas informed of pt arrival, c/o contractions, UC pattern on monitor, monitoring. Plan per provider is to send UA and reflex to culture if needed, discharge home if negative to follow up on Thursday at previously scheduled clinic appointment. Patient verbalized understanding of education and verbalized agreement with plan. Discharged ambulatory at 0118. Provider Notification - Ayana Lorenzo RN - 11/07/2018 1:06 AM CDT 11/07/18 0106 Provider Notification Provider Name/Title Dr Lucas Method of Notification Electronic Page;Phone Request Evaluate - Remote Notification Reason Lab/Diagnostic Study Results of UA read off to doctor by RN. Per provider no infection seen but that patient is dehydrated. Provider made aware of contractions seen on monitor since last interaction, per provider states probably in relation to dehydration, and OK to discharge patient home. Patient and sig other made awareof UA results and provider notification and agree to be discharged home to follow up on Thursday as previously scheduled. Plan of Care - Ayana Lorenzo RN - 11/06/2018 11:55 PM CDT Pt heard laughing with family members through triage door. Reflected with spikes on TOCO reading. Plan of Care - Ayana Lorenzo RN - 11/06/2018 11:32 PM CDT Pt arrives to MAC with sig other and mother. Pt reporting contractions every 10 minutes starting at 1100 today. GBS not performed, 2 doses of betamethasone with recent vaginal bleeding a week ago. Pt denies leaking of fluid, or vaginal bleeding. States has pressure in sides of abdomen traveling down to lower abdomen. When asked to get into bed after obtaining verbal consent to monitor patient, pt states she wishes to have her mother braid hair prior to doing that. Provider Notification - Ayana Lorenzo RN - 11/06/2018 11:24 PM CDT 11/06/18 1537 Provider Notification Provider Name/Title Dr Lucas Method of Notification Electronic Page;Phone Request Evaluate - Remote Notification Reason Patient Arrived;Uterine Activity;Labor Status;SVE Provider aware of patient arrival to unit. History reviewed as well as FHR tracing and UC pattern. Per provider to obtain urine sample for UA with reflex to culture. Also RN to perform SVE while provider holds on phone to assess cervix. SVE as documented reported back to provider. To continue with plan for UA and Discharge home with follow up in clinic on Thursday as previously scheduled. Will notify provider if positive UA is resulted. documented in this encounter Plan of Treatment Not on filedocumented as of this encounter Procedures Procedure Name Priority Date/Time Associated Comments Diagnosis ROUTINE UA WITH STAT 11/07/2018 12:35 Results for this MICROSCOPIC REFLEX TO AM CDT proced ure are in CULTURE the results section. NON-STRESS TEST 11/07/2018 12:00 - HIM SCAN AM CDT documented in this encounter Results (ABNORMAL) UA with Microscopic reflex to Culture (11/07/2018 12:35 AM CDT) [facility] Method Time Signature Color Urine Yellow 11/07/2018 [facility] 1:03 AM [facility] Appearance Urine Clear 11/07/2018 [facility] 1:03 AM [facility] Glucose Urine 30 (A) NEG^Negat 11/07/2018 [facility] [place] mg/dL 1:03 AM [facility] Bilirubin Urine Negative NEG^Negat 11/07/2018 [facility] [place] 1:03 AM [facility] Ketones Urine 5 (A) NEG^Negat 11/07/2018 [facility] [place] mg/dL 1:03 AM [facility] Specific [place] 1.025 1.003 - 11/07/2018 [facility] Urine 1.035 1:03 AM [facility] Blood Urine Negative NEG^Negat 11/07/2018 [facility] [place] 1:03 AM [facility] pH Urine 6.0 5.0 - 7.0 11/07/2018 [facility] pH 1:03 AM [facility] Protein Albumin 30 (A) NEG^Negat 11/07/2018 [facility] Urine [place] mg/dL 1:03 AM [facility] Urobilinogen 2.0 0.0 - 2.0 11/07/2018 [facility] mg/dL mg/dL 1:03 AM [facility] Nitrite Urine Negative NEG^Negat 11/07/2018 [facility] [place] 1:03 AM [facility] Leukocyte Negative NEG^Negat 11/07/2018 [facility] Esterase Urine [place] 1:03 AM [facility] Source Midstream 11/07/2018 [place] Urine 12:39 AM [facility] WBC Urine 1 0 - 5 11/07/2018 [facility] /HPF 1:03 AM [facility] RBC Urine 1 0 - 2 11/07/2018 [facility] /HPF 1:03 AM [facility] Squamous 1 0 - 1 11/07/2018 [place] Epithelial /HPF /HPF 1:03 AM [facility] Mucous Urine Present (A) NEG^Negat 11/07/2018 [place] /LPF 1:03 AM [facility] Specimen (Source) Anatomical Collection Method Collection Time Re ceived Time Location / / Volume Laterality Examination of URINE SPECIMEN 11/07/2018 12:35 019 midstream urine OBTAINED BY CLEAN AM CDT 12:39 A M T specimen CATCH PROCEDURE / (procedure) Unknown Dottie Lucas MD LAB - URINE ORDERABLES Performing Organization Address City/State/ZIP Code Phon e Number [facility] [address] [address] [facility] [address] [address], [facility] [phone] NON-STRESS TEST - HIM SCAN (11/07/2018 12:00 AM CDT) Specimen (Source) Anatomical Location Collection Method / Collectio n Time Received Time / Laterality Volume 11/07/2018 Narrative This result has an attachment that is no t available. Provider Scan PROCEDURES documented in this encounter Visit Diagnoses Diagnosis Encounter for triage in patient documented in this encounter Care Teams Guest Relation Officer Relationship Specialty Start Date End Date No Ref-Primary, Physician PCP - General 02/23/14 documented as of this encounter
--- OUTSIDE RECORDS SUMMARY | 2021-10-01 16:50 | XMS_ITS | Encounter Summary ---
:1995 Author Organization [place] Address [facility] [place] [address] Care Team Providers Name Role Phone No Ref-Primary Primary Care Provider Reason for Visit Reason Comments Care Patient states contraction f or past 2 days & rectal cramping. Encounter Details Date Type Department Care Team Description 11/29/2018 Office [facility] Inga Ibarra for supervision of normal first in third trimester (Primary Dx); Visit [facility] Olga screening for streptococcus B [address] [place] [address] [address] [place] [address] [place], [place] (Work) [phone] Social History Tobacco Use Types Packs/Day Years Used Date Never Smoker Smokeless Tobacco: Never Used Alcohol Use Standard Drinks/Week Comments No 0 (1 standard drink = 0.6 oz pure alcoho l) Sex Assigned at Date Recorded Female 10/01/2020 10:47 AM CDT documented as of this encounter Last Filed Vital Signs Vital Sign Reading Time Taken Comments Blood Pressure 106/76 11/29/2018 9:57 AM CDT Pulse - - Temperature - - Respiratory Rate - - Oxygen Saturation - - Inhaled Oxygen Concentration - - Weight 88.5 kg (195 lb) 11/29/2018 9:57 AM CDT Height - - Body Mass Index 35.67 10/23/2018 1:32 PM CDT documented in this encounter Progress Notes Inga Ibarra DO - 11/29/2018 9:50 AM CDT No loss of fluid/vaginal bleeding/regular contractions. + FM -GBS collected - Labor precautions. F/U 1wk Inga Ibarra DO documented in this encounter Plan of Treatment Not on filedocumented as of this encounter Procedures Procedure Name Priority Date/Time Associated Diagnosis Comme nts GROUP B STREP PCR Routine 11/29/2018 9:50 screening Results for this AM CDT for streptococcus B procedur e are in the results section. documented in this encounter Results Group B strep PCR (11/29/2018 9:50 AM CDT) [facility] Method Time Signature Group B Strep Vaginal 11/29/2018 [facility] PCR Spec [place] Rectal 10:27 AM CDT [facility] Group B Strep Negative NEG^Negat 11/30/2018 [facility] [place] 5:24 PM CDT [facility] Comment: No GBS DNA detected, presumed negative f or GBS or number of bacteria may be below the limit of detection of the assa y. Assay performed on incubated broth cultu re of specimen using [employer] real-time PCR. Specimen Anatomical Collection Method Collection Time Receive d Time (Source) Location / / Volume Laterality Vaginal Rectal 11/29/2018 9:50 9 AM CDT 11:47 AM CDT Inga Ibarra DO LAB - MICRO GENERAL ORDERABL ES Performing Organization Address City/State/ZIP Code Phon e Number [phone] [place] [address] WOMEN [address] [place] [address] [facility] 100 documented in this encounter Visit Diagnoses Diagnosis Encounter for supervision of normal firs t in third trimester - Primary Supervision of normal first screening for streptococcus B screening for Streptococcus B documented in this encounter Care Teams Mobile Health Vehicle Operator Relationship Specialty Start Date End Date No Ref-Primary, Physician PCP - General 02/23/14 documented as of this encounter
--- OUTSIDE RECORDS SUMMARY | 2021-10-01 16:50 | XMS_ITS | Encounter Summary ---
:1995 Author Organization [place] Address [address] [place] [address] Care Team Providers Name Role Phone No Ref-Primary Primary Care Provider Reason for Visit Reason Comments Allergic Reaction Encounter Details Date Type Department Care Team Description 10/23/2018 Hospital Encounter [facility] Chinedu Mcclelland, DO [facility] [address] [place] [address] Abdominal pain, unspecified abdominal lo cation; DEPARTMENT Ohl, William Jacobson DO [facility] [address] [place], [place] [id number] Allergic reaction, initial encounter; [address] [place]ympt[place] [address] Social History Tobacco Use Types Packs/Day Years Used Date Never Smoker Smokeless Tobacco: Never Used Alcohol Use Standard Drinks/Week Comments No 0 (1 standard drink = 0.6 oz pure alcoho l) Sex Assigned at Date Recorded Female 10/01/2020 10:47 AM CDT documented as of this encounter Last Filed Vital Signs Vital Sign Reading Time Taken Comments Blood Pressure - - Pulse - - Temperature - - Respiratory Rate - - Oxygen Saturation - - Inhaled Oxygen Concentration - - Weight 81.6 kg (180 lb) 10/23/2018 1:32 PM CDT Height 157.5 cm (5' 2) 10/23/2018 1:32 PM CDT Body Mass Index 32.92 10/23/2018 1:32 PM CDT documented in this encounter Medications at Time of Discharge Medication Sig Dispensed Refills Start Date End Date EPINEPHrine INJECT 1 PEN UTD 3 06/01/2017 (EPIPEN/ADRENACLICK/OR FOR ALLERGIC ANY BX GENERIC EQUIV) 0.3 REACTION UTD MG/0.3ML injection 2-pack Prenat w/o Take 1 tablet by 90 capsule 3 07/06/2018 E-MY-Aeufpdg-FA-DHA mouth daily (PNV-DHA) 27-0.6-0.4-300 MG CAPSIndications: acetaminophen 500 MG CAPS Take 2 capsules by 60 capsule 0 10/31/2018 mouth every 8 hours as needed For aches, pain, fever cephALEXin (KEFLEX) 500 Take 500 mg by 0 10/24/19 19 10/31/2018 MG capsule mouth ranitidine (ZANTAC) 75 MG Take 150 mg by 0 12/13/2018 tablet mouth 2 times daily as needed documented as of this encounter ED Notes William Evans DO - 10/23/2018 5:04 PM CDT Received patient from Dr. Mcclelland. Patient initially came here because of an allergic reaction. Ate some knots and thought she was having an allergy. She 7 months . Did not use her EpiPen. Given Pepcid here. Has been hemodynamically stable since. Also started complaining of some abdominal pain. Ultrasound is pending at this point. The previous physician spoke with the OB at [facility] and recommending her to beevaluated there for possibly early onset . Patient has no vaginal bleeding -Patient ultrasound showing some very mild hydronephrosis. No hematuria or stones shadowing. I suspect this is an anatomic variant. Patient with bacteria in the urine. Sent home with Keflex for 5 days. Patient states she will go directly to [facility] for [facility] BLENDER consultation and evaluation. The previous doctor was able to speak with all the consultants and specialists at [facility] William Evans DO 10/23/181941 Historical Provider - 10/23/2018 3:05 PM CDT Patient appears to be comfortable and resting in bed. Patient appears more calm after medication administration and essential oils. Pako Mcclelland DO - 10/23/2018 2:06 PM CDT EMERGENCY DEPARTMENT NOTE Name: Ava Parker Age/Sex: 22 y.o. female Evaluation Date & Time: 10/23/2018 1:25 PM PCP: Provider, Page Primary Care ED Provider: Pako Mcclelland D.O. CHIEF COMPLAINT Chief Complaint Patient presents with ??? Allergic Reaction DIAGNOSIS & DISPOSITION 1. Abdominal pain, unspecified abdominal location 2. Allergic reaction, initial encounter 3. Asymptomatic bacteriuria during DISPOSITION: Anticipate discharge with OB follow-up Kan Sanchez At the conclusion of the encounter I discussed the results of all of the tests and the disposition. The questions were answered. The patient or family acknowledged understanding and was agreeable with the care plan. TOTAL CRITICAL CARE TIME (EXCLUDING PROCEDURES): Not applicable PROCEDURES: None EMERGENCY DEPARTMENT COURSE/MEDICAL DECISION MAKING 2:06 PM I met with the patient to gather history and to perform my initial exam. We discussed treatment options and the plan for care while in the Emergency Department. 3:15 PM Rechecked patient. Her abdominal pain is improving. She has had some mild lower abdominal cramping the past couple days. 22-year-old female presenting the emergency department for evaluation of allergic reaction. Patientis G1, P0 currently 30 weeks . Patient has history of tree nut allergy. She inadvertently ate guacamole with pine nuts in it today. She had allergic symptoms of generalized pruritus and upper lip swelling. Patient had previous prescription for epinephrine but was concerned about use duringpregnancy. In the interval time to presentation the ER his symptoms have largely resolved without other treatment. The patient on arrival to the emergency department had developed abdominal pain localized to the midepigastric area. Over the past several days patient has had intermittent lower abdominal pain described as cramping which is also recurrent. Patient denied vaginal bleeding or abnormal fluid per vagina. Patient denied any current breathing difficulty Physical exam:BP 110/59 Pulse 80 Temp 98.1 ??F (36.7 ??C) (Oral) Resp 22 Ht 5' 2 (1.575m) Wt 180 lb (81.6 kg) SpO2 99% BMI 32.92 kg/m?? HEENT: No angioedema Cardiac: Regular rate and rhythm, no auscultated no murmur Lungs: Clear to auscultation bilaterally Abdomen: Midepigastric tenderness without guarding or peritoneal signs, gravid, heart tones 130 Skin: No rash including urticarial rash Diagnostic studies: Comprehensive metabolic profile within normal limits. Hemoglobin 10.9, lipase 24. Patient received Benadryl and Pepcid. She had Maalox with resolution of abdominal pain. Discussed case with Dr. Torres HAIR BLENDER [facility] where she receives care. Patientreports intermittent crampy-like abdominal pain did not have availability of local monitoring to exclude labor. Upper abdominal pain probable reflux. History consistent with allergic reaction but no progressive symptoms of anaphylaxis Patient is signed out a change of shift to Dr. Junior for follow-up of her right upper quadrant ultrasound and urinalysis. If negative and patient remains without recurrent abdominal pain will [facility]. Patient does not wish to take ambulance and I think she is safe for transfer by private car. Also discussed case with ER at [facility] in the event that she has recurrent abdominal paingets referred back to the emergency department. ED INTERVENTIONS Medications diphenhydrAMINE injection 25 mg (BENADRYL) (25 mg Intravenous Given 10/23/18 1406) famotidine 20 mg injection (20 mg Intravenous Given 10/23/18 1409) aluminum-magnesium hydroxide-simethicone 200-200-20 mg/5 mL suspension 30 mL (MAALOX ADVANCED) (30 mL Oral Given 10/23/18 4207) ondansetron injection 4 mg (ZOFRAN) (4 mg Intravenous Given 10/23/18 7437) DISCHARGE MEDICATIONS Medication List START taking these medications cephalexin 500 MG capsule Commonly known as: KEFLEX Take 1 capsule (500 mg total) by mouth 4 (four) times a day for 5 days. ranitidine 150 MG capsule Commonly known as: ZANTAC Take 1 capsule (150 mg total) by mouth 2 (two) times a day. ASK your doctor about these medications desogestrel-ethinyl estradiol 0.15-0.03 mg per tablet Commonly known as: APRI Take 1 tablet by mouth daily. EPINEPHrine 0.3 mg/0.3 mL injection Commonly known as: EPIPEN 2-ISABELLE TAKE DIRECTED FOR ALLERGIC REACTION Where to Get Your Medications You can get these medications from any pharmacy Bring a paper prescription for each of these medications ?? cephalexin 500 MG capsule ?? ranitidine 150 MG capsule INFORMATION SOURCE AND LIMITATIONS History/Exam limitations: None Patient information was obtained from: Patient Use of Patent Engineer: N/A HISTORY OF PRESENT ILLNESS Ava Parker is a 22 y.o. female with a relevant past history of migraine headache, anxiety, and depression, who presents to this ED via EMS for evaluation of an allergic reaction. Patient was eating pesto sauce which contained pine nuts when she became lightheaded, noticed a scratchy throat, itchy tongue, and had trouble swallowing. Her upper lip also began to swell. She denies any hives. She is currently 7 months (30 weeks) and was unsure if she was able to use her epipen, so she did not. She made herself vomit. At this time she reports epigastric abdominal pain and nausea. During her so far she has had some nausea but no vomiting. REVIEW OF SYSTEMS: Constitutional: Negative for fever. HENT: Upper lip swelling, trouble swallowing, scratchy throat, itchy tongue. Eyes: Negative for visual disturbance. Cardiac: Negative for chest pain,palpitations, near syncope or syncope Respiratory: Negative for cough and shortness of breath. Gastrointestinal: Epigastric abdominal pain, nausea, and vomiting. Negative for constipation, diarrhea, rectal bleeding or melena. Genitourinary: Negative for dysuria, flank pain and hematuria. Musculoskeletal: Negative for back pain. Skin: Negative for rash Neurological: Negative for dizziness, headache, syncope, speech difficulty, unilateral weakness or imbalance with walking. Hematological: Negative for adenopathy. Does not bruise/bleed easily. Psychiatric/Behavioral: Negative for confusion. PATIENT HISTORY Past Medical History: Diagnosis Date ??? Boxer's fracture 04/27/15 Patient Active Problem List Diagnosis ??? Migraine Headache ??? Allergic Rhinitis ??? Regular Cycle Intervals Less Than 21 Days ??? Adverse Effect Of Selective Serotonin And Norepinephrine Reuptake Inhibitors ??? Amenorrhea ??? Major Depression, Single Episode ??? Allergy To Nuts ??? Anxiety Disorder NOS ??? Chronic Post-traumatic Stress Disorder Past Surgical History: Procedure Laterality Date ??? ME OPEN TREATMENT TARSOMETATARSAL JOINT DISLOCATION Description: Open Treatment Of Tarsometatarsal Dislocation; Proc Date: 06/09/2011; Comments: ORIFof Lisfranc joint, intercuneiform arthrotomy with synovectomy. Adria Butterfield DPM, [facility], [facility] [place]. Social Histrory Smoking: Alcohol Use; Allergies Allergen Reactions ??? Grundy Seed ??? Tree Nuts Shortness Of Breath, Nausea And Vomiting and Dizziness ??? Cat Hair Std Allergenic Ext ??? Cockroach ??? House Dust ??? Peanut Shortness Of Breath OUTPATIENT MEDICATIONS No current facility-administered medications on file prior to encounter. Current Outpatient Medications on File Prior to Encounter Medication Sig ??? desogestrel-ethinyl estradiol (APRI) 0.15-0.03 mg per tablet Take 1 tablet by mouth daily. ??? EPINEPHrine (EPIPEN 2-ISABELLE) 0.3 mg/0.3 mL atIn TAKE DIRECTED FOR ALLERGIC REACTION PHYSICAL EXAM Vitals: 10/23/18 1332 10/23/18 1500 10/23/18 1515 BP: 119/69 112/59 110/59 Patient Position: Sitting Pulse: 73 84 80 Resp: 22 Temp: 98.1 ??F (36.7 ??C) TempSrc: Oral SpO2: 99% Weight: 180 lb (81.6 kg) Height: 5' 2 (1.575 m) Physical Exam Constitutional: Oriented to person, place, and time. Appears well-developed and well-nourished. HEENT: Head: Atraumatic. Nose: Nose normal. Mouth/Throat: Oropharynx is clear and moist. Eyes: EOM are normal. Pupils are equal, round, and reactive to light. Neck: Normal range of motion. Neck supple. Cardiovascular: Normal rate, regular rhythm and normal heart sounds. Pulmonary/Chest: Normal effort and breath sounds normal. Abdominal: Soft. Bowel sounds are normal. Midepigastric tenderness, gravid abdomen with fundus at umbilicus. Musculoskeletal: Normal range of motion. Neurological: Aert and oriented to person, place, and time. Normal strength.No sensory deficit. No cranial nerve deficit . Coordination and gait normal. Skin: Skin is warm and dry. Psychiatric: Normal mood and affect. Behavior is normal. Thought content normal. DIAGNOSTICS LABORATORY FINDINGS (REVIEWED AND INTERPRETED): Labs Reviewed COMPREHENSIVE METABOLIC PANEL - Abnormal; Notable for the following components: Result Value Chloride 108 (*) CO2 20 (*) BUN 6 (*) Creatinine 0.57 (*) Albumin 2.9 (*) Alkaline Phosphatase 129 (*) All other components within normal limits Narrative: Fasting Glucose reference range is 70-99 mg/dL per [place] Diabetes Association (ADA) guidelines. HM1 (CBC WITH DIFF) - Abnormal; Notable for the following components: Hemoglobin 10.9 (*) Hematocrit 31.9 (*) Neutrophils % 72 (*) Lymphocytes % 17 (*) All other components within normal limits URINALYSIS,MACRO REFLEX MICRO, UC IF INDICATED - Abnormal; Notable for the following components: Clarity, UA Cloudy (*) Ketones, UA Trace (*) Protein, UA Trace (*) Leukocytes, UA Moderate (*) Bacteria, UA Moderate (*) WBC, UA 5-10 (*) Squam Epithel, UA 25-50 (*) Amorphous, UA Moderate (*) Mucus, UA Few (*) All other components within normal limits Narrative: Urine Culture ordered based on [facility] Laboratory criteria LIPASE - Normal CULTURE, URINE RAINBOW DRAW Narrative: The following orders were created for panel order [place] Draw. Procedure Abnormality Status --------- ------ Light Blue Top[[id number]] Final result Light Green Top[[id number]] Final result Red Top[[id number]] Final result Lavender Top[[id number]] Final result Please view results for these tests on the individual orders. LIGHT BLUE TOP(CITRATE 2.7ML) GREEN TOP(LI HEP 4ML) RED TOP(PLAIN 4ML) LAVENDER TOP(EDTA 4ML) HM1(CBC WITH DIFFERENTIAL) Narrative: The following orders were created for panel order HM1(CBC and Differential). Procedure Abnormality Status --------- ------ HM1 (CBC with Diff)[[id number]] Abnormal Final result Please view results for these tests on the individual orders. RAINBOW DRAW Narrative: The following orders were created for panel order [place] Draw. Procedure Abnormality Status --------- ------ [place] Urine[[id number]] Final result Please view results for these tests on the individual orders. RAINBOW URINE IMAGING (REVIEWED AND INTERPRETED): Us Abdomen Limited Result Date: 10/23/2018 EXAM: US ABDOMEN LIMITED LOCATION: [facility] DATE/TIME: 10/23/2018 5:00 PM INDICATION: upper abdominal pain COMPARISON: None. FINDINGS: GALLBLADDER: Normal, without cholelithiasis. BILE DUCTS: No bile duct dilation. Common duct not well seen separately and not measured. LIVER: Normal where seen. RIGHT KIDNEY: Very mild hydronephrosis. Normal cortical thickness. No shadowing stones visualized. PANCREAS: Not imaged in detail on this limited study. No incidental abnormalities. No ascites in the right upper quadrant. CONCLUSION: Very mild right hydronephrosis. ECG (REVIEWED AND INTERPRETED): ECG: Performed at: 13:31 HR: 72 bpm Rhythm: normal sinus Hope P-R-T: 67, 68, 13 QRS duration: 82 ms QTC: [address] changes: No ST segment elevation or depression, no T wave inversion, normal Q wave Interpretation: normal ECG Compared to most recent ECG from: No prior for comparison I have reviewed the patient's ECG, with comments made as listed above. Please see scanned image for full interpretation. I, Luz Marina Duncan, am serving as a scribe to document services personally performed by Pako Mcclelland D.O., based on my observation and the provider???s statements to me. I, Pako Mcclelland D.O., attest that Luz Marina Duncan is acting in a scribe capacity, has observed myperformance of the services and has documented them in accordance with my direction. Pako Mcclelland D.O. EMERGENCY MEDICINE 10/24/18 [facility] EMERGENCY DEPARTMENT [address] [address] Dept: [phone] Loc: [phone] Paok Mcclelland DO 10/24/18 6246 Aislinn Syed M - 10/23/2018 2:00 PM CDT FHT's done via journalists and other writers [id number]. Aislinn Syed - 10/23/2018 1:29 PM CDT Patient presents to the ED via medics to be evaluated for allergic reaction. Per medic report the patient is allergic to nuts and ate some food containing nuts. She made herself throw up as soon as sherealized the food contained nuts. She is 7 months so she did not use her epi pen as she wasunsure if it was safe in . documented in this encounter Plan of Treatment Not on filedocumented as of this encounter Procedures Procedure Name Priority Date/Time Associated Comments Diagnosis US ABDOMEN LIMITED Routine 10/23/2018 5:00 Resul ts for this PM CDT procedure are i n the results section. URINE CULTURE - STAT 10/23/2018 2:45 Results for this HISTORICAL PM CDT procedure are i n the results section. ROUTINE UA WITH Routine 10/23/2018 2:45 Results for this MICROSCOPIC REFLEX TO PM CDT proced ure are in CULTURE the results section. CBC WITH PLATELETS AND STAT 10/23/2018 2:09 R esults for this DIFFERENTIAL PM CDT procedure are i n the results section. LIPASE Routine 10/23/2018 2:09 Results for this PM CDT procedure are i n the results section. COMPREHENSIVE Routine 10/23/2018 2:09 Results fo r this METABOLIC PANEL PM CDT procedure ar e in the results section. EKG 12-LEAD, TRACING STAT 10/23/2018 1:30 Res ults for this ONLY PM CDT procedure are i n the results section. documented in this encounter Results US Abdomen Limited (10/23/2018 5:00 PM CDT) Anatomical Region Laterality Modality Abdomen/Pelvis Other Specimen (Source) Anatomical Location Collection Method / Collectio n Time Received Time / Laterality Volume Impressions 10/23/2018 5:03 PM CDT CONCLUSION: Very mild right hydronephrosis. Narrative 10/23/2018 5:03 PM CDT EXAM: US ABDOMEN LIMITED LOCATION: [facility] DATE/TIME: 10/23/2018 5:00 PM INDICATION: upper abdominal pain COMPARISON: None. FINDINGS: GALLBLADDER: Normal, without cholelithia sis. BILE DUCTS: No bile duct dilation. Commo n duct not well seen separately and not measured. LIVER: Normal where seen. RIGHT KIDNEY: Very mild hydronephrosis. Normal cortical thickness. No shadowing stones visualized. PANCREAS: Not imaged in detail on this l imited study. No incidental abnormalities. No ascites in the right upper quadrant. Procedure Note Cornell Krishna MD - 08/22/2020Format ting of this note might be different from the original. EXAM: US ABDOMEN LIMITED LOCATION: [facility] DATE/TIME: 10/23/2018 5:00 PM INDICATION: upper abdominal pain COMPARISON: None. FINDINGS: GALLBLADDER: Normal, without cholelithia sis. BILE DUCTS: No bile duct dilation. Commo n duct not well seen separately and not measured. LIVER: Normal where seen. RIGHT KIDNEY: Very mild hydronephrosis. Normal cortical thickness. No shadowing stones visualized. PANCREAS: Not imaged in detail on this l imited study. No incidental abnormalities. No ascites in the right upper quadrant. IMPRESSION: CONCLUSION: Very mild right hydronephrosis. Pako Mcclelland DO [facility] US ORDERABLES Urine Culture - Historical (10/23/2018 2:45 PM CDT) [facility] Method Time Signature Culture Mixture of 10/24/2018 [facility] urogenital 11:12 AM CDT [facility] LABORATORY Specimen Anatomical Collection Method Collection Time Receive d Time (Source) Location / / Volume Laterality Urine specimen 10/23/2018 2:45 9 (specimen) PM CDT 4:58 PM CDT Pako Mcclelland DO LAB - MICRO GENERAL ORDERABL ES Performing Organization Address City/State/ZIP Code Phon [place] [address] [address] [facility] (ABNORMAL) UA with Microscopic reflex to Culture (10/23/2018 2:45 PM CDT) [facility] Method Time Signature Color Urine Yellow Colorless, 10/23/2018 HEALTH Yellow, 4:58 PM CDT [facility] Luisa, [facility] LABORAT[facility] Yellow Appearance Urine Cloudy (A) Clear 10/23/2018 HEALTH 4:58 PM CDT [facility] Glucose Urine Negative Negative 10/23/2018 HEALTH 4:58 PM CDT [facility] Bilirubin Urine Negative Negative 10/23/2018 HEALTH 4:58 PM CDT [facility] Ketones Urine Trace (A) Negative 10/23/2018 HEALTH 4:58 PM CDT [facility] Specific Bulger 1.017 1.001 - 10/23/2018 [facility] Urine 1.030 4:58 PM CDT [facility] Blood Urine Negative Negative 10/23/2018 HEALTH 4:58 PM CDT [facility] pH Urine 8.0 4.5 - 8.0 10/23/2018 HEALTH 4:58 PM CDT [facility] Protein Albumin Trace (A) Negative 10/23/2018 [facility] Urine mg/dL 4:58 PM T [facility] Urobilinogen <2.0 <2.0 10/23/2018 [facility] Urine E.U./dL E.U./dL, 4:58 PM T [facility] 2.0 E.U./dL [facility] Nitrite Urine Negative Negative 10/23/2018 HEALTH 4:58 PM CDT [facility] Leukocyte Moderate Negative 10/23/2018 HEALTH Esterase Urine (A) 4:58 PM CDT [facility] Bacteria Urine Moderate None Seen 10/23/2018 HEALTH (A) hpf 4:58 PM CDT [facility] RBC Urine 0-2 None Seen, 10/23/2018 HEALTH 0-2 hpf 4:58 PM CDT [facility] WBC Urine 5-10 (A) None Seen, 10/23/2018 HEALTH 0-5 hpf 4:58 PM CDT [facility] Squamous 25-50 (A) None Seen, 10/23/2018 [facility] Epithelials 0-5 lpf 4:58 PM CDT [facility] Amorphous Moderate None Seen 10/23/2018 [facility] Crystals Urine (A) 4:58 PM CDT [facility] Mucus Urine Few (A) None Seen 10/23/2018 [facility] lpf 4:58 PM CDT [facility] Specimen Anatomical Collection Method Collection Time Receive d Time (Source) Location / / Volume Laterality Urine specimen 10/23/2018 2:45 9 (specimen) PM CDT 2:48 PM CDT Narrative [facility] - 10/23/2018 4:58 PM CDT Urine Culture ordered based on [facility] criteria Pako Mcclelland DO LAB - URINE ORDERABLES Performing Organization Address [facility]/State/[facility] [place] [address] LABORATORY [facility] [address] [place] [id number] [place] [address] (ABNORMAL) CBC WITH PLATELETS AND DIFFERENTIAL (10/23/2018 2:09 PM CDT) [facility] Method Time Signature WBC 10.0 4.0 - 10/23/2018 HEALTH 11.0 2:14 PM CDT [facility] RBC Count 3.88 3.80 - 10/23/2018 HEALTH 5.40 2:14 PM CDT [facility] mill/uL [facility] Hemoglobin 10.9 (L) 12.0 - 10/23/2018 HEALTH 16.0 g/dL 2:14 PM CDT [facility] Hematocrit 31.9 (L) 35.0 - 10/23/2018 [facility] 47.0 % 2:14 PM CDT [facility] MCV 82 80 - 100 10/23/2018 HEALTH fL 2:14 PM CDT [employer] LABORATORY MCH 28.1 27.0 - 10/23/2018 HEALTH 34.0 pg 2:14 PM CDT [facility] MCHC 34.2 32.0 - 10/23/2018 HEALTH 36.0 g/dL 2:14 PM CDT [facility] [employer] RDW 12.5 11.0 - 10/23/2018 HEALTH 14.5 % 2:14 PM CDT [facility] Platelet Count 225 140 - 440 10/23/2018 HEALTH thou/uL 2:14 PM CDT [employer] LABORAT[facility] Mean Platelet 11.9 8.5 - 10/23/2018 [facility] Volume 12.5 fL 2:14 PM CDT [employer] LABORATORY % Neutrophils 72 (H) 50 - 70 % 10/23/2018 HEALTH 2:14 PM CDT [employer] LABORATORY % Lymphocytes 17 (L) 20 - 40 % 10/23/2018 HEALTH 2:14 PM CDT [employer] LABORATORY % Monocytes 9 2 - 10 % 10/23/2018 HEALTH 2:14 PM CDT [employer] LAB[facility] % Eosinophils 1 0 - 6 % 10/23/2018 HEALTH 2:14 PM CDT [employer] LABORATORY % Basophils 0 0 - 2 % 10/23/2018 HEALTH 2:14 PM CDT [employer] LAB[facility]AT[facility] Absolute 7.2 2.0 - 7.7 10/23/2018 [facility] Neutrophils thou/uL 2:14 PM CDT [employer] LAB[facility]AT[facility] Absolute 1.7 0.8 - 4.4 10/23/2018 HEALTH Lymphocytes thou/uL 2:14 PM CDT [employer] [facility] Absolute 0.9 0.0 - 0.9 10/23/2018 HEALTH Monocytes thou/uL 2:14 PM CDT [employer] [facility] Eosinophils 0.1 0.0 - 0.4 10/23/2018 HEALTH Absolute thou/uL 2:14 PM CDT [employer] LAB[facility] Absolute 0.0 0.0 - 0.2 10/23/2018 [facility] Basophils thou/uL 2:14 PM CDT [facility] Specimen Anatomical Collection Method Collection Time Receive d Time (Source) Location / / Volume Laterality Blood specimen 10/23/2018 2:09 9 (specimen) PM CDT 2:09 PM CDT Pako Mcclelland DO LAB - BLOOD ORDERABLES Performing Organization Address [facility] Phon [place] [address] [address] [facility] Lipase (10/23/2018 2:09 PM CDT) P athologist Signature Lipase 24 0 - 52 U/L 10/23/2018 [facility] 2:30 PM CDT [facility] Specimen Anatomical Collection Method Collection Time Receive d Time (Source) Location / / Volume Laterality Blood specimen 10/23/2018 2:09 9 (specimen) PM CDT 2:09 PM CDT Pako Mcclelland DO LAB - BLOOD ORDERABLES Performing Organization Address City/[facility] Phon e Number [facility] [place] [address] [address] [facility] (ABNORMAL) Comprehensive metabolic panel (10/23/2018 2:09 PM CDT) Patholo gist Method Time Signature Sodium 136 136 - 145 10/23/2018 [facility] mmol/L 2:30 PM CDT [facility] Potassium 3.6 3.5 - 5.0 10/23/2018 [facility] mmol/L 2:30 PM CDT [facility] Chloride 108 (H) 98 - 107 10/23/2018 [facility] mmol/L 2:30 PM CDT [facility] Carbon Dioxide 20 (L) 22 - 31 10/23/2018 [facility] (CO2) mmol/L 2:30 PM [facility] Anion Gap 8 5 - 18 10/23/2018 [facility] mmol/L 2:30 PM [facility] Glucose 83 70 - 125 10/23/2018 [facility] mg/dL 2:30 PM [facility] Urea Nitrogen 6 (L) 8 - 22 10/23/2018 [facility] mg/dL 2:30 PM [facility] Creatinine 0.57 (L) 0.60 - 10/23/2018 [facility] 1.10 2:30 PM [facility] mg/dL [facility] GFR Estimate If >60 >60 10/23/2018 [facility] Black mL/min/1. 2:30 PM [facility] [address] LABORATORY GFR Estimate >60 >60 10/23/2018 [facility] mL/min/1. 2:30 PM [facility] [address] [facility] Bilirubin Total 0.2 0.0 - 1.0 10/23/2018 [facility] mg/dL 2:30 PM [facility] Calcium 9.5 8.5 - 10/23/2018 [facility] 10.5 2:30 PM [facility] mg/dL [facility] Protein Total 6.7 6.0 - 8.0 10/23/2018 [facility] g/dL 2:30 PM [facility] Albumin 2.9 (L) 3.5 - 5.0 10/23/2018 [facility] g/dL 2:30 PM [facility] Alkaline 129 (H) 45 - 120 10/23/2018 [facility] Phosphatase U/L 2:30 PM [facility] AST 13 0 - 40 10/23/2018 [facility] U/L 2:30 PM [facility] ALT 10 0 - 45 10/23/2018 [facility] U/L 2:30 PM [facility] Specimen Anatomical Collection Method Collection Time Receive d Time (Source) Location / / Volume Laterality Blood specimen 10/23/2018 2:09 9 (specimen) PM CDT 2:09 PM CDT Narrative [facility] - 10/23/2018 2:30 PM CDT Fasting Glucose reference range is 70-99 mg/dL per [place] [employer] (ADA) yolande dudley. Pako Mcclelland LAB - BLOOD ORDERABLES Performing Organization Address City/State/[place] [address] [phone] [id number] [place] [address] [place] [id number], [facility] EKG 12-lead, tracing only (10/23/2018 1:30 PM CDT) [facility] Method Time Signature Systolic Blood 119 mmHg 10/23/2018 [facility] Pressure 3:29 PM CDT CONVERSION Diastolic Blood 69 mmHg 10/23/2018 [facility] Pressure 3:29 PM CDT CONVERSION Ventricular Rate 72 BPM 10/23/2018 [facility] 3:29 PM CDT CONVERSION Atrial Rate 72 BPM 10/23/2018 [facility] 3:29 PM CDT CONVERSION ME Interval 118 ms 10/23/2018 [facility] 3:29 PM CDT CONVERSION QRS Duration 82 ms 10/23/2018 [facility] 3:29 PM CDT CONVERSION QT 402 ms 10/23/2018 [facility] 3:29 PM CDT CONVERSION QTc 440 ms 10/23/2018 [facility] 3:29 PM CDT CONVERSION P Hope 67 degrees 10/23/2018 [facility] 3:29 PM CDT CONVERSION R AXIS 68 degrees 10/23/2018 [facility] 3:29 PM CDT CONVERSION T Hope 13 degrees 10/23/2018 [facility] 3:29 PM CDT CONVERSION Interpretation Normal sinus rhythm 10/23/2018 [facility] ECG Normal ECG 3:29 PM CDT CONVERSION No previous ECGs available Confirmed by DRE ??REYES FITZGERALD LOC: ([id number]) on 10/23/2018 3:29:52 PM Specimen Anatomical Collection Method Collection Time Receive d Time (Source) Location / / Volume Laterality 10/23/2018 1:30 10/23/2018 PM CDT 3:29 PM CDT Pako Mcclelland DO ECG ORDERABLES Performing Organization Address City/State/ZIP Code Phon e Number [facility] C[facility]IOLOG[facility] CONVERSION [facility] CONVERSION documented in this encounter Visit Diagnoses Diagnosis Abdominal pain, unspecified abdominal lo cation Allergic reaction, initial encounter Asymptomatic bacteriuria during pregnanc y documented in this encounter Care Teams Prosecuting Attorney Relationship Specialty Start Date End Date No Ref-Primary, Physician PCP - General 02/23/14 documented as of this encounter
--- OUTSIDE RECORDS SUMMARY | 2021-10-01 16:50 | XMS_ITS | Encounter Summary ---
:1995 Author Organization [place] Address [address] [place] [address] Care Team Providers Name Role Phone No Ref-Primary Primary Care Provider Encounter Details Date Type Department Care Team Description 09/10/2018 Travel Social History Tobacco Use Types Packs/Day [...] on filedocumented in this encounter Care Teams Cuff Stitcher Relationship Specialty Start Date End Date No Ref-Primary, Physician PCP - General 02/23/14 documented as of this encounter
--- OUTSIDE RECORDS SUMMARY | 2021-10-01 16:50 | XMS_ITS | Encounter Summary ---
:1995 Author Organization [place] Address [address] [place] [address] Care Team Providers Name Role Phone No Ref-Primary Primary Care Provider Encounter Details Date Type Department Care Team Description 12/02/2018 Travel Social History Tobacco Use Types Packs/Day [...] on filedocumented in this encounter Care Teams Hand Screen Printer Relationship Specialty Start Date End Date No Ref-Primary, Physician PCP - General 02/23/14 documented as of this encounter
--- OUTSIDE RECORDS SUMMARY | 2021-10-01 16:50 | XMS_ITS | Encounter Summary ---
:1995 Author Organization [place] Address [facility] [place] [address] Care Team Providers Name Role Phone No Ref-Primary Primary Care Provider Reason for Visit Reason Comments Care having contractions, would l zhane advice on a professor of history Encounter Details Date Type Department Care Team Description 11/08/2018 Office [facility] Inga Ibarra for Visit [facility] DO Olga supervision of Cinthya [facility] VINCENT ABDI normal first [address] [facility] 100 [place] [address] trimester [address] [place] [address] (Work) [phone] Social History Tobacco Use Types Packs/Day Years Used Date Never Smoker Smokeless Tobacco: Never Used Alcohol Use Standard Drinks/Week Comments No 0 (1 standard drink = 0.6 oz pure alcoho l) Sex Assigned at Date Recorded Female 10/01/2020 10:47 AM CDT documented as of this encounter Last Filed Vital Signs Vital Sign Reading Time Taken Comments Blood Pressure 120/60 11/08/2018 9:12 AM CDT Pulse - - Temperature - - Respiratory Rate - - Oxygen Saturation - - Inhaled Oxygen Concentration - - Weight 84.3 kg (185 lb 12.8 oz) 11/08/2018 9:12 AM CDT Height - - Body Mass Index 33.98 10/23/2018 1:32 PM CDT documented in this encounter Progress Notes Inga Ibarra DO - 11/08/2018 9:10 AM CDT No loss of fluid/vaginal bleeding/regular contractions. + FM On Thursday had more contractions, were stronger. Started early in the day. Went in to [facility], was dilated very slightly. UA wnl, just dehydrated. No new activities, intercourse. Had gone [place] state [place]. No further bleeding. Last day was 10/31/18 when left the hospital. -PTL and bleeding precautions discussed. Received steriods during bleeding admittioms 10/30-. Is asymptomatic at this point. Reassured pt. - Labor precautions. F/U 2wk, sooner prn Inga Ibarra DO documented in this encounter Plan of Treatment Not on filedocumented as of this encounter Visit Diagnoses Diagnosis Encounter for supervision of normal firs t in third trimester Supervision of normal first documented in this encounter Care Teams Clerical Transcriber Relationship Specialty Start Date End Date No Ref-Primary, Physician PCP - General 02/23/14 documented as of this encounter
--- OUTSIDE RECORDS SUMMARY | 2021-10-01 16:50 | XMS_ITS | Encounter Summary ---
:1995 Author Organization [place] Address [address] [place] [address] Care Team Providers Name Role Phone No Ref-Primary Primary Care Provider Encounter Details Date Type Department Care Team Description 10/30/2018 Travel Social History Tobacco Use Types Packs/Day [...] on filedocumented in this encounter Care Teams Pit Crane Operator Relationship Specialty Start Date End Date No Ref-Primary, Physician PCP - General 02/23/14 documented as of this encounter
--- OUTSIDE RECORDS SUMMARY | 2021-10-01 16:50 | XMS_ITS | Encounter Summary ---
:1995 Author Organization [place] Address [facility] [place] [address] Care Team Providers Name Role Phone No Ref-Primary Primary Care Provider Reason for Visit Reason Comments Care Encounter Details Date Type Department Care Team Description 10/11/2018 Office [facility] MastersInga for supervision of normal first in third trimester (Primary Dx); Visit [facility] DO Olga Screen for STD (sexually transmitted dis ease); [place] [address] [facility] Low lying placenta nos or wi thout hemorrhage, second trimester [address] [address] [place] [address] [place] [address] (Work) [phone] Social History Tobacco Use Types Packs/Day Years Used Date Never Smoker Smokeless Tobacco: Never Used Alcohol Use Standard Drinks/Week Comments No 0 (1 standard drink = 0.6 oz pure alcoho l) Sex Assigned at Date Recorded Female 10/01/2020 10:47 AM CDT documented as of this encounter Last Filed Vital Signs Vital Sign Reading Time Taken Comments Blood Pressure 110/66 10/11/2018 10:29 AM CDT Pulse - - Temperature - - Respiratory Rate - - Oxygen Saturation - - Inhaled Oxygen Concentration - - Weight 84.7 kg (186 lb 12.8 oz) 10/11/2018 10:29 AM CDT Height - - Body Mass Index 34.17 07/21/2018 9:53 AM CDT documented in this encounter Progress Notes Adali Roth - 10/11/2018 10:40 AM CDT Syphilis is a sexually transmitted disease that can cause defects in the babies of untreated mothers. Every patient is tested for syphilis early in each as part of the routine lab work. The [place] Department of Health has seen an increase in the rate of syphilis in [place]. The [facility] now recommends testing for syphilis 3 times during a , the new visit, 28weeks and when admitted for delivery. Patient accepts lab testing for syphilis. Inga Ibarra DO - 10/11/2018 10:40 AM CDT No loss of fluid/vaginal bleeding/regular contractions. + FM Having more migraines lately, has not been sleeping well so thinks this is why. -28wk labs today. Tdap offered. Accepts syphilis. -Reviewed today's growth US with pt, resolution of LL placenta. Normal growth and fluid. No further US needed unless indicated. -Discussed preregistration and hospital tour. - Labor precautions. F/U 2wk. Inga Ibarra DO documented in this encounter Plan of Treatment Not on filedocumented as of this encounter Procedures Procedure Name Priority Date/Time Associated Diagnosis Comme nts TREPONEMA ABS W Routine 10/11/2018 9:58 AM Screen for STD Res ults for this REFLEX TO RPR AND CDT (sexually procedure are in TITER transmitted disease) the res ults section. documented in this encounter Results Treponema Abs w Reflex to RPR and Titer (10/11/2018 9:58 AM CDT) [facility] Method Time Signature Treponema Nonreactive NR^Nonrea 10/12/2018 INFECTIOUS Antibodies ctive 11:08 AM CDT [facility] Specimen Anatomical Collection Method Collection Time Receive d Time (Source) Location / / Volume Laterality Blood specimen 10/11/2018 9:58 9 (specimen) AM CDT 11:05 AM CDT Inga Espinoza Masters DO LAB - BLOOD ORDERABLES Performing Organization Address City/State/ZIP Code Phon e Number [facility]EAS[facility] [address] [place] [address] DI[facility], [facility] INFECTIOUS DISEASES [address] [place] [address], [place] [facility] documented in this encounter Visit Diagnoses Diagnosis Encounter for supervision of normal firs t in third trimester - Primary Supervision of normal first Screen for STD (sexually transmitted dis ease) Screening examination for venereal disea se Low lying placenta nos or without hemorr shavonne, second trimester documented in this encounter Care Teams Sephora Operations Consultant Relationship Specialty Start Date End Date No Ref-Primary, Physician PCP - General 02/23/14 documented as of this encounter
--- OUTSIDE RECORDS SUMMARY | 2021-10-01 16:50 | XMS_ITS | Encounter Summary ---
:1995 Author Organization [place] Address [address] [place] [address] Care Team Providers Name Role Phone No Ref-Primary Primary Care Provider Reason for Visit Reason Comments Allied Health Visit doppler Encounter Details Date Type Department Care Team Description 09/03/2018 Allied Health/Nurse [facility] Visit Visit [facility] Tobi na (doppler) [address] [address] Social History Tobacco Use Types Packs/Day Years Used Date Never Smoker Smokeless Tobacco: Never Used Alcohol Use Standard Drinks/Week Comments No 0 (1 standard drink = 0.6 oz pure alcoho l) Sex Assigned at Date Recorded Female 10/01/2020 10:47 AM CDT documented as of this encounter Progress Notes Alta Syed RN - 09/03/2018 1:30 PM CDT Pt here for dop tones. FHR 150's Pt is feeling less pain than she was earlier today. Denies contractions, vaginal bld and/or leaking of fluid. Took a warm bath-that helped. Will await UA results and contact pt Alta Syed RN on 09/03/2018 at 1:50 PM documented in this encounter Plan of Treatment Not on filedocumented as of this encounter Visit Diagnoses Diagnosis Encounter for supervision of normal firs t in second trimester - Primary Supervision of normal first documented in this encounter Care Teams Bioprocessing Manufacturing Technician Relationship Specialty Start Date End Date No Ref-Primary, Physician PCP - General 02/23/14 documented as of this encounter
--- OUTSIDE RECORDS SUMMARY | 2021-10-01 16:50 | XMS_ITS | Encounter Summary ---
:1995 Author Organization [place] Address [address] [place] [address] Care Team Providers Name Role Phone No Ref-Primary Primary Care Provider Encounter Details Date Type Department Care Team Description 09/03/2018 Orders Only [facility] Cloudy urine [place] [address] [facility] [address] [place] [address] Social History Tobacco Use Types Packs/Day [...] Procedure Name Priority Date/Time Associated Comments Diagnosis URINE MICROSCOPIC Routine 09/03/2018 1:35 Cloudy urine Result s for this PM CDT procedure are i n the results section. UA MACROSCOPIC WITH Routine 09/03/2018 1:35 Cloudy urine Resu lts for this REFLEX TO MICRO PM CDT procedure ar e in the results section. documented in this encounter Results Urine Microscopic (09/03/2018 1:35 PM CDT) P athologist Signature WBC Urine 0 - 5 OTO5^0 - 5 09/03/2018 [place] /HPF 1:52 PM CDT [facility] RBC Urine O - 2 OTO2^O - 2 09/03/2018 [place] /HPF 1:52 PM CDT [facility] Squamous Few FEW^Few 09/03/2018 [place] Epithelial /LPF /LPF 1:52 PM CDT [facility] Specimen Anatomical Collection Method Collection Time Receive d Time (Source) Location / / Volume Laterality 09/03/2018 1:35 09/03/2018 PM CDT 1:36 PM CDT Inga Espinoza Masters DO LAB - URINE ORDERABLES Performing Organization Address City/State/ZIP Code Phon e Number [facility] [address] [place] [address] [facility] [address] (ABNORMAL) UA reflex to Microscopic (09/03/2018 1:35 PM CDT) [facility] Method Time Signature Color Urine Yellow 09/03/2018 [place] 1:52 PM CDT [facility] Appearance Urine Clear 09/03/2018 [place] 1:52 PM CDT [facility] Glucose Urine Negative NEG^Negat 09/03/[address] [facility] [place] mg/dL 1:52 PM CDT [facility] Bilirubin Urine Negative NEG^Negat 09/03/2018 [place] 1:52 PM CDT [facility] Ketones Urine Negative NEG^Negat 09/03/[address] [place] mg/dL 1:52 PM CDT [facility] Specific [place] 1.020 1.003 - 09/03/2018 [place] Urine 1.035 1:52 PM CDT [facility] Blood Urine Negative NEG^Negat 09/03/2018 [place] 1:52 PM CDT [facility] pH Urine 7.5 (H) 5.0 - 7.0 09/03/[address] [address] pH 1:52 PM CDT [facility] Protein Albumin Negative NEG^Negat 09/03/[address] [address] [facility] Urine [place] mg/dL 1:52 PM CDT [facility] Urobilinogen 0.2 0.2 - 1.0 09/03/2018 [place] Urine EU/dL 1:52 PM CDT [facility] Nitrite Urine Negative NEG^Negat 09/03/2018 [place] 1:52 PM CDT [facility] Leukocyte Trace (A) NEG^Negat 09/03/[address] [facility] Esterase Urine [place] 1:52 PM CDT [facility] Source Midstream 09/03/2018 [facility] 1:37 PM CDT [facility] Specimen (Source) Anatomical Collection Method Collection Time Re ceived Time Location / / Volume Laterality Examination of 09/03/2018 1:35 9 midstream urine PM CDT 1:36 PM CDT specimen (procedure) Inga Espinoza Masters DO LAB - URINE ORDERABLES Performing Organization Address City/State/ZIP Code Phon e Number [facility] [address] [place] [address] [facility] 100 documented in this encounter Visit Diagnoses Diagnosis Cloudy urine Other nonspecific finding on examination of urine documented in this encounter Care Teams Fullerette Relationship Specialty Start Date End Date No Ref-Primary, Physician PCP - General 02/23/14 documented as of this encounter
--- OUTSIDE RECORDS SUMMARY | 2021-10-01 16:50 | XMS_ITS | Encounter Summary ---
:1995 Author Organization [place] Address [address] [place] [address]. [place] [address] Care Team Providers Name Role Phone No Ref-Primary Primary Care Provider Reason for Visit Reason Onset Date Comments Patient Request 08/06/2018 Encounter Details Date Type Department Care Team Description 08/06/2018 Telephone [facility] Inga Ibarra [facility] Cinthya Espinoza DO [address] [facility] out [address] [facility] [address] [place] [address] [place] [id number] (Wo rk) Social History Tobacco Use Types Packs/Day Years Used Date Never Smoker Smokeless Tobacco: Never Used Alcohol Use Standard Drinks/Week Comments No 0 (1 standard drink = 0.6 oz pure alcoho l) Sex Assigned at Date Recorded Female 10/01/2020 10:47 AM CDT documented as of this encounter Miscellaneous Notes Telephone Encounter - Nancy Hanley RN - 08/10/2018 8:47 AM CDT Left detailed message on pt's voicemail. Included call back number for questions. Telephone Encounter - Inga Ibarra DO - 08/06/2018 4:22 PM CDT Just based on alone, I do not feel restrictions are necessary. However, she may discuss with the Rehabilitation and Physical Medicine providers she is seeing if they feel based on her current assessement and treatment plan restrictions are necessary. My hopes for PT would be that she would get treatement early enough that she can continue to do the things she needs to and avoid restrictions/significant limitations. Inga Ibarra DO Telephone Encounter - Maryana Crawford RN - 08/06/2018 8:19 AM CDT Pt calling to ask about restrictions for future clinicals starting at 22-24 weeks due to hip pain -Has 3 8 hour shifts of clinicals; if she is given restrictions, she cannot take this class. Pt seen by Dr Ibarra 07/19/18 and was given referral for PDR back program. Pt has completedthe evaluation and 1 session after that. She has not discussed recommended restrictions but has an apt later today with them. Informed pt to ask them as they did the physical evaluation and will have recommendations from that direct evaluation. She has no restrictions based on alone, it will be based on the hip/back issues and what she can and cannot tolerate. May be more up to her as she knows her body more and hard to for see in the future what she will be like in 4 weeks. If needs a letter or more guidance from Dr Ibarra she can call after seen at PT today. Pt verbalized understanding, in agreement with plan, and voiced no further questions. documented in this encounter Plan of Treatment Not on filedocumented as of this encounter Visit Diagnoses Not on filedocumented in this encounter Care Teams Kiln Door Repairer Relationship Specialty Start Date End Date No Ref-Primary, Physician PCP - General 02/23/14 documented as of this encounter
--- OUTSIDE RECORDS SUMMARY | 2021-10-01 16:50 | XMS_ITS | Encounter Summary ---
:1995 Author Organization [facility] Address [address] [place] [address]. [place] [address] Care Team Providers Name Role Phone No Ref-Primary Primary Care Provider Reason for Visit Reason Comments Vaginal Bleeding Auth/Cert Specialty Diagnoses / Procedures Referred By Contact Refer red To Contact chief juvenile probation officer Diagnoses Encounter for triage in patient Vaginal bleeding Sh Labor & Delivery Procedures L AND D [address] [address] Phone: Referral ID Status Reason Start Date Expiration Date Visits Requ ested Visits Authorized [id number] 1 1 Encounter Details Date Type Department Care Team Description 10/30/2018 - Hospital Encounter [facility] Cheri Ibarra DO [address] [facility] [address] [id number] 10/31/2018 [facility] Alphonse Cooper MD [address] [facility] [address] [address] [address] [address] Social History Tobacco Use Types Packs/Day Years Used Date Never Smoker Smokeless Tobacco: Never Used Alcohol Use Standard Drinks/Week Comments No 0 (1 standard drink = 0.6 oz pure alcoho l) Sex Assigned at Date Recorded Female 10/01/2020 10:47 AM CDT documented as of this encounter Last Filed Vital Signs Vital Sign Reading Time Taken Comments Blood Pressure 104/51 10/31/2018 3:40 AM CDT Pulse - - Temperature 36.4 ??C (97.5 ??F) 10/31/2018 3:40 AM CDT Respiratory Rate 16 10/31/2018 3:40 AM CDT Oxygen Saturation - - Inhaled Oxygen Concentration - - Weight - - Height - - Body Mass Index - - documented in this encounter Discharge Summaries Alphonse oCoper MD - 10/31/2018 9:55 AM CDT Admit Date: 10/30/2018 Discharge Date: 10/31/2018 HOSPITAL COURSE: This patient was a 22-year-old 1, para 0, patient of Dr. Ibarra. She was admitted at 31-6/7 weeks with a history of vaginal bleeding in her third trimester. On admission she had visible blood per vagina. An ultrasound was performed. We did not see any sign of anabruption. The heart rate tracing was normal. She received 2 doses of betamethasone for lungmaturity 24 hours apart. She was observed in the hospital over 24 hours and did not have any further bleeding. She was discharged home to follow up with Dr. Ibarra within 1 week. ALPHONSE COOPER MD MT: Name: JOVANY PARKER MRN: [id number] Account: [id number] : 1995 Admit Date: 10/30/2018 Discharge Date: 10/31/2018 Document: [id number] documented in this encounter Discharge Instructions Discharge InstructionsZaira Gonzales RN - 10/31/2018 8:41 AM CDT Discharge Instruction for Undelivered Patients You were seen for: Bleeding Assessment We Consulted: Dr. Cooper You had (Test or Medicine): and uterine monitoring, OB limited ultrasound, IV hydration, cervical exam, betamethasone, and overnight admission to monitor for further vaginal bleeding. Diet: Drink 8 to 12 glasses of liquids (milk, juice, water) every day. You may eat meals and snacks. Activity: Rest the pelvic area. No sex. Do not stimulate breasts or nipples. Call your doctor or nurse natural foods clerk if your baby is moving less than usual. No work for a week. Call your provider if you notice: Swelling [...] minutes apart for one hour or more. Second (plus) baby: Contractions (tightening) less than 10 minutes apart and getting stronger. *If less than 34 weeks: Contractions (tightenings) more than 6 times in one hour. Increase or change in vaginal discharge (note the color and amount Follow-up: Follow-up with Dr. Ibarra this coming week documented in this encounter Medications at Time of Discharge Medication Sig Dispensed Refills Start Date End Date EPINEPHrine INJECT 1 PEN UTD FOR 3 06/01/2017 (EPIPEN/ADRENACLICK/OR ALLERGIC REACTION ANY BX GENERIC EQUIV) UTD 0.3 MG/0.3ML injection 2-pack Prenat w/o Take 1 tablet by 90 capsule 3 07/06/2018 A-ZB-Bxlonbx-FA-DHA mouth daily (PNV-DHA) 27-0.6-0.4-300 MG CAPSIndications: ranitidine (ZANTAC) 75 Take 150 mg by mouth 0 12/13/2018 MG tablet 2 times daily as needed documented as of this encounter Progress Notes Alphonse Cooper MD - 10/31/2018 8:06 AM CDT Hd# 2 No further active bleeding Slept last night after taking ambien Second dose of betamethasone today and then can discharge home See Dr Ibarra this week in clinic Off work for 1 week due to third trimester bleeding 32w 0d documented in this encounter H&P Notes Alphonse Cooper MD - 10/30/2018 8:16 AM CDT Significant change in general health status. See record and notation in the progress note. 22 yo 31 6/7 wks presented with third trimester bleeding this am. No recent trauma or exam. Started during the night. 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 Had a prior low lying placenta, appeared resolved at 28 week ultrasound Bleeding quantity on underwear similar to a period on arrival Has had some mild ctx since admission Fundus non tender Some discomfort in right lower quadrant Has history of hip pain prior in this FHT 140s good variability No regular contractions Cervix closed/50 %/-2/moderate consistency/mid position Some small amount of blood noted on glove but no active bleeding seen currently Prior ultrasound showed placenta was 6cm from internal os at 28 wks A Third trimester bleeding, unknown cause Blood type AB pos Differential diagnosis includes marginal abruption, labor Will give betamethasone q 24 hrs x 2 doses Plan Plan observation in MAC for several hrs T & S CBC with diff Ultrasound to recheck placenta and look for any sign of abruption Discussed not working this weekend Discussed need to observe for awhile to see if bleeding persists If bleeding persists, will need admission Discussed betamethasone for lung maturity documented in this encounter Miscellaneous Notes Plan of Care - Zaira Gonzales RN - 10/31/2018 9:37 AM CDT Patient awake, repeat steroid injection completed. Patient desires to go home at this time. Patienteducation pamphlets given on movement counts, pelvic rest, no work for a week, and discharge summary. Patient instructed to report change in movement, vaginal leaking of fluid or bleeding,abdominal pain, or any concerns related to the to her nurse/physician. Patient verbalizedunderstanding of education and verbalized agreement with plan. Discharged to home at 0937. Plan of Care - Dora Parra RN - 10/31/2018 7:15 AM CDT Progress note: Report received from Zaira Orlando RN. VSS. Patient denies any bright red vaginal bleeding or LOF. Reports movement. FHM showing moderate variability with accelerations present. Patient in agreement with plan of care. Will continue to monitor. Plan of Care - Dora Parra RN - 10/31/2018 12:45 AM CDT MD Notification Notified Person: MD Notified Person Name: Dr. Cooper Notification Date/Time: 10/31/2018 at 0045 Notification Interaction: Phone Purpose of Notification: Patient reporting cramping that is in her perineum and wraps to her rectum area. Abdomen palpated and is soft to touch. Patient requesting Tylenol to relieve the pain. Orders Received: Orders received for PO Tylenol, see orders. Plan of Care - Zaira Gonzales RN - 10/30/2018 5:32 PM CDT Patient rested comfortably since admission. Currently denies cramping and uterine contractions. Scant brown vaginal discharge noted when up to bathroom. Category 1 tracing. +FM noted. Denies and concerns at this time. Support at bedside. Plan of Care - Zaira Gonzales RN - 10/30/2018 10:02 AM CDT Received report. Assumed care of patient. Admission database and allergies reviewed. Orders acknowledged. LR bolus currently infusing. Patient oriented to room and call light. Support at bedside. Plan of Care - Lorin Cunningham RN - 10/30/2018 8:08 AM CDT Jovany is a 22yo 31w6d presents with period amount of bright red vaginal bleeding that started during the night last night and continued today. Denies recent trauma, intercourse. Had low lying placenta that resolved. +FM. Has had sharp lower right side by her hip, rates it a 2-3/10. Denies other problems with this . Her partner, Ruslan is at bedside and supportive. 0800-Dr Cooper at bedside to assess. Labs and ultrasound ordered and saw underwear. 08-To ultrasound 09-Dr Cooper updated. Cramping continues, light bleeding. US normal. Plan to admit overnight. 2nd beta tomorrow. IV bolus of LR, then SL. VS q 4 hours. Continuous and uterine monitoring. Reg diet. Bedrest with bathroom privileges. 0950-Pt transferred to L/D room 211 via wheelchair. Report given to LONG Meneses to assume all cares. 1015-IV bolus initiated. documented in this encounter Plan of Treatment Not on filedocumented as of this encounter Procedures Procedure Name Priority Date/Time Associated Comments Diagnosis US OB LIMITED >14 STAT 10/30/2018 8:57 Result s for this WEEKS WO AM CDT procedure are in MEASUREMENT the results section. ABO/RH TYPE AND STAT 10/30/2018 8:21 Results for this SCREEN AM CDT procedure are i n the results section. CBC WITH PLATELETS STAT 10/30/2018 8:21 Resul ts for this AM CDT procedure are i n the results section. NON-STRESS TEST 10/30/2018 12:00 - HIM SCAN AM CDT documented in this encounter Results US OB >14 Weeks Limited wo Measurement (10/30/2018 8:57 AM CDT) Anatomical Region Laterality Modality Abdomen/Pelvis Ultrasound Specimen (Source) Anatomical Location Collection Method / Collectio n Time Received Time / Laterality Volume Impressions 10/30/2018 10:29 AM CDT IMPRESSION: Single living intrauterine gestation, no placenta previa or acute process demonstrated. ELIZABETH HAYS MD Narrative 10/30/2018 10:29 AM CDT OBSTETRIC ULTRASOUND GREATER THAN 14 WEEKS LIMITED WITHOUT MEASUREMENT 10/30/2018 8:57 AM HISTORY: Third trimester bleeding, resol nas low lying placenta. COMPARISON: October 11, 2018 TECHNIQUE: Transabdominal imaging. FINDINGS: There is a single living intra uterine in a cephalic presentation of approximately 3 1 weeks 6 day gestation as estimated previously. Normal amniotic fl uid volume. Quantitative ORLY is 14.1 cm. Placenta is posterior withou t previa or abruption. Cardiac activity 148 beats from minute. Unremarkable 4 chamber heart, stomach, bladder, and kidneys. Normal mo vement is observed by the telephone coin box collector. Procedure Note Elizabeth Hays MD - 10/30/2018Fo rmatting of this note might be different from the original. OBSTETRIC ULTRASOUND GREATER THAN 14 WEE [place] LIMITED WITHOUT MEASUREMENT 10/30/2018 8:57 AM HISTORY: Third trimester bleeding, resol nas low lying placenta. COMPARISON: October 11, 2018 TECHNIQUE: Transabdominal imaging. FINDINGS: There is a single living intra uterine in a cephalic presentation of approximately 3 1 weeks 6 day gestation as estimated previously. Normal amniotic fl uid volume. Quantitative ORLY is 14.1 cm. Placenta is posterior withou t previa or abruption. Cardiac activity 148 beats from minute. Unremarkable 4 chamber heart, stomach, bladder, and kidneys. Normal mo vement is observed by the telephone coin box collector. IMPRESSION: Single living intrauterine g estation, no placenta previa or acute process demonstrated. ELIZABETH HAYS MD Alphonse Cooper MD IMG US ORDERABLES ABO/Rh type and screen (10/30/2018 8:21 AM CDT) [facility] Method Time Signature ABO AB 10/30/2018 [place] 9:08 AM CDT [facility] RH(D) Pos [facility] Antibody Neg 10/30/2018 [place] Screen 9:08 AM CDT [facility] Test Valid [facility] 10/30/2018 [place] Only At [facility] 8:26 AM CDT [facility] Specimen 11/02/2018 10/30/2018 [facility] Expires 8:26 AM [facility] Specimen Anatomical Collection Method Collection Time Receive d Time (Source) Location / / Volume Laterality Blood specimen 10/30/2018 8:21 9 (specimen) AM CDT 8:22 AM CDT Alphonse Cooper MD LAB - BLOOD BANK TEST ORDER Performing Organization Address City/State/ZIP Code Phon e Number M [facility] [address] [place] [address] [phone] [facility] [address] [place] [address], [place] [phone] (ABNORMAL) CBC with platelets (10/30/2018 8:21 AM CDT) Analysis Performed At Patho logist Time Signature WBC 9.6 4.0 - 11.0 10/30/2018 [facility] 10e9/L 8:27 AM [facility] RBC Count 3.72 (L) 3.8 - 5.2 10/30/2018 [facility] 10e12/L 8:27 AM [facility] Hemoglobin 10.5 (L) 11.7 - 10/30/2018 [facility] 15.7 g/dL 8:27 AM [facility] Hematocrit 31.5 (L) 35.0 - 10/30/2018 [facility] 47.0 % 8:27 AM [facility] MCV 85 78 - 100 10/30/2018 [facility] fl 8:27 AM [facility] MCH 28.2 26.5 - 10/30/2018 [facility] 33.0 pg 8:27 AM [facility] MCHC 33.3 31.5 - 10/30/2018 [facility] 36.5 g/dL 8:27 AM [facility] RDW 12.8 10.0 - 10/30/2018 [facility] 15.0 % 8:27 AM [facility] Platelet Count 215 150 - 450 10/30/2018 [facility] 10e9/L 8:27 AM [facility] Specimen Anatomical Collection Method Collection Time Receive d Time (Source) Location / / Volume Laterality Blood specimen 10/30/2018 8:21 9 (specimen) AM CDT 8:22 AM CDT Alphonse Cooper MD LAB - BLOOD ORDERABLES Performing Organization Address City/State/ZIP Code Phon e Number M [facility] [address] [address] [phone] [facility] [address] [address], U [phone] NON-STRESS TEST - HIM SCAN (10/30/2018 12:00 AM CDT) Specimen (Source) Anatomical Location Collection Method / Collectio n Time Received Time / Laterality Volume 10/30/2018 Narrative This result has an attachment that is no t available. Provider Scan PROCEDURES documented in this encounter Visit Diagnoses Diagnosis Encounter for triage in patient Vaginal bleeding Other specified noninflammatory disorder of vagina documented in this encounter Administered Medications Inactive Administered Medications - up to 3 most recent administrations Medication Order MAR Action Action Date Dose Rate Site acetaminophen (TYLENOL) 325 MG tablet Starting on 10/31/18 at 0049, For 1 d Fidel holden Kelsey : cabinet override Maximum acetaminophen dose from all sources = 75 mg/kg /day not to exceed 4 grams/day. acetaminophen (TYLENOL) tablet 650 mg Given 10/31/2018 12:52 AM CDT 650 mg 650 mg, Oral, EVERY 4 HOURS PRN, mild pain, fever, Starting on 10/31/18 at 0045, Maximum acetaminophen dose from all sources = 75 mg/kg/day not to exceed 4 grams/day. alum & mag hydroxide-simethicone (MYLANT A ES/MAALOX ES) suspension 30 mL 30 mL, Oral, ONCE PRN, indigestion, GI d iscomfort, Starting on 10/30/18 at 0928, For 1 dose, If heartburn continues, notify care provid er betamethasone acet & sod phos (CELESTONE ) 6 (3-3) MG/ML injection Starting on 10/30/18 at 0819, For 1 dose, Wicho Cunningham : cabinet override betamethasone acet & sod Given 10/31/2018 9:11 AM CDT 12 mg Right Ventrogluteal phos (CELESTONE) injection 12 mg 12 mg, Intramuscular, EVERY 24 HOURS, First dose on 10/30/18 at 0830, For 2 doses Given 10/30/2018 8:24 AM CDT 12 mg Left Ventrogluteal docusate sodium (COLACE) capsule 100 mg Given 10/31/2018 9:11 AM CDT 100 mg 100 mg, Oral, DAILY, First dose on 10/30/18 at 0945, Hold for loose stools. Given 10/30/2018 11:42 AM CDT 100 mg lactated ringers BOLUS 1,000 New Bag 10/30/2018 10:15 AM CDT 1 ,000 mLs 1000 mL/hr mL Intravenous, 1,000 mL, ONCE, at 1,000 mL/hr, Administer over 1 Hours, On 10/30/18 at 0945, For 1 dose, Then saline lock No Tdap Needed - Assessment: Patient way s not need Tdap vaccine CONTINUOUS PRN, Starting on 10/30/18 at 0928, Until 10/31/18 at 1155, Assessment: Patient does not need Tdap immunization ondansetron (ZOFRAN) injection 4 mg 4 mg, Intravenous, EVERY 6 HOURS PRN, nausea, vomiting , Administer over 2-5 Minutes, Starting on 10/30/18 at 0927, If nausea no t resolved in 15 minutes, notify provider before proceeding to prochlorperazine (COMPAZINE) [if ordered]. Irritant. For ordered IV doses 0.1-4 mg, give IV Push undiluted over 2-5 minutes. ranitidine (ZANTAC) tablet 150 mg Given 10/31/2018 9:11 AM CDT 150 mg 150 mg, Oral, 2 TIMES DAILY, First dose on 10/30/18 at 0945 Given 10/30/2018 8:01 PM CDT 150 mg Given 10/30/2018 11:41 AM CDT 150 mg sodium chloride (PF) 0.9% PF flush 3 mL 3 mL, Intracatheter, EVERY 1 MIN PRN, li jean carlos flush, for peripheral IV flush post IV meds, Starting on 10/30/18 at 1533 sodium chloride (PF) 0.9% PF flush 3 mL Given 10/31/2018 3:37 AM CDT 3 mLs 3 mL, Intracatheter, EVERY 8 HOURS, First dose on 10/30/18 at 2000, And Q1H PRN, to lock peripheral IV dormant line. Given 10/30/2018 8:01 PM CDT 3 mLs zolpidem (AMBIEN) tablet 5 mg Given 10/31/2018 12:51 AM CDT 5 mg 5 mg, Oral, AT BEDTIME PRN, sleep, Starting on 10/30/18 at 0929 documented in this encounter Active and Recently Administered Medications Times are shown in CDT. Scheduled Medication Order 10/29/2018 10/30/2018 10/31/2018 betamethasone acet & sod phos (CELESTONE) injection 12 mg (C OMPLETED) 0824 (Given - Provider: Lorin Cunningham RN) 09 (Given - Provider: Zaira Gonzales RN) 12 mg, Intramuscular, EVERY 24 HOURS, Fi rst dose on 10/30/18 at 0830, For 2 doses docusate sodium (COLACE) capsule 100 mg 114 (Given - Provider: Zaira Gonzales RN) 09 (Given - Provider: Zaira Gonzales RN) 100 mg, Oral, DAILY, First dose on 10/30/18 at 0945, Hold for loose stools. lactated ringers BOLUS 1,000 mL (COMPLETED) 1015 (New Bag - Provider: Lorin Cunningham RN) Intravenous, 1,000 mL, ONCE, at 1,000 mL /hr, Administer over 1 Hours, 10/30/18 at 0945, For 1 dose, Then saline lock ranitidine (ZANTAC) tablet 150 mg 114 ( Given - Provider: Zaira Gonzales RN)2000 (Given - Provider: Dora Parra RN) 910 (Given - Provider: Zaira Gonzales RN) 150 mg, Oral, 2 TIMES DAILY, First dose on 10/30/18 at 0945 sodium chloride (PF) 0.9% PF flush 3 mL 2000 (Given - Provider: Dora Parra RN) 336 (Given - Provider: Donte Adams) 3 mL, Intracatheter, EVERY 8 HOURS, Firs t dose on 10/30/18 at 2000, And Q1H PRN, to lock peripheral IV dormant line. PRN Medication Order 10/29/2018 10/30/2018 10/31/2018 acetaminophen (TYLENOL) tablet 650 mg 0052 (Given - Provider: Dora Parra, RN) 650 mg, Oral, EVERY 4 HOURS PRN, mild pa in, fever, Starting 10/31/18 at 0045, Maximum acetaminophen dose from all sources = 75 mg/kg/day not to exceed 4 grams/day. alum & mag hydroxide-simethicone (MYLANTA ES/MAALOX ES) suspens ion 30 mL 30 mL, Oral, ONCE PRN, indigestion, GI d iscomfort, Starting 10/30/18 at 0928, For 1 dose, If heartburn continues, notify care provider No Tdap Needed - Assessment: Patient does not need Tdap vaccine CONTINUOUS PRN, Starting 10/30/18 at 0928, Until 10/31/18 at 1155, Assessment: Patient does not need Tdap immunization ondansetron (ZOFRAN) injection 4 mg 4 mg, Intravenous, EVERY 6 HOURS PRN, na usea, vomiting, Administer over 2-5 Minutes, Starting 10/30/18 at 0927, If nausea not resolved in 15 minutes, notify provider before proceeding to prochlorpera zine (COMPAZINE) [if ordered]. Irritant. For ordered IV doses 0.1-4 mg, give IV Push undiluted over 2-5 minutes. sodium chloride (PF) 0.9% PF flush 3 mL 3 mL, Intracatheter, EVERY 1 MIN PRN, li ne flush, for peripheral IV flush post IV meds, Starting 10/30/18 at 1533 zolpidem (AMBIEN) tablet 5 mg 00 51 (Given - Provider: Dora Parra, LONG) 5 mg, Oral, AT BEDTIME PRN, Starting 10/30/18 at 0929, sleep documented in this encounter Care Teams Machine Stemmer Relationship Specialty Start Date End Date No Ref-Primary, Physician PCP - General 02/23/14 documented as of this encounter
--- OUTSIDE RECORDS SUMMARY | 2021-10-01 16:50 | XMS_ITS | Encounter Summary ---
:1995 Author Organization [place] Address [address] [place] [address]. [place] [address] Care Team Providers Name Role Phone No Ref-Primary Primary Care Provider Reason for Referral Diagnostic Imaging Ultrasound (Routine) - Closed Specialty Diagnoses / Procedures Referred By Contact Refer red To Contact Diagnoses Encounter for supervision of normal first in second trimester Low lying placenta nos or without hemorrhage, second trimester Inga Ibarra DO Procedures US OB >14 Weeks Follow Up [address] [facility] [address] [place] [address] Referral ID Status Reason Start Date Expiration Date Visits Requ ested Visits Authorized [id number] Closed 08/13/2018 08/13/2019 1 1 Reason for Visit Reason Comments Care 20w5d Encounter Details Date Type Department Care Team Description 08/13/[address] [facility] Inga Ibarra for supervision of normal first in second trimester (Primary Dx); [facility] DO Olga Low lying placenta nos or without hemorr shavonne, second trimester; [place] [address] Echogenic focus of heart of fetus affecting antepartum care of mother, single gestation [address] [facility] [address] 100 [facility] [place] [address] [address] [place] [address] (Work) [phone] Social History Tobacco Use Types Packs/Day Years Used Date Never Smoker Smokeless Tobacco: Never Used Alcohol Use Standard Drinks/Week Comments No 0 (1 standard drink = 0.6 oz pure alcoho l) Sex Assigned at Date Recorded Female 10/01/2020 10:47 AM CDT documented as of this encounter Last Filed Vital Signs Vital Sign Reading Time Taken Comments Blood Pressure 112/58 08/13/2018 3:03 PM CDT Pulse - - Temperature - - Respiratory Rate - - Oxygen Saturation - - Inhaled Oxygen Concentration - - Weight 78.9 kg (174 lb) 08/13/2018 3:03 PM CDT Height - - Body Mass Index 31.83 07/21/2018 9:53 AM CDT documented in this encounter Progress Notes Inga Ibarra DO - 08/13/2018 2:50 PM CDT No loss of fluid/vaginal bleeding/regular contractions. + FM -Anatomy US reviewed. LL placenta, plan repeat US 28-32wk. ECIF, low risk. Discussed isolated finding. Offered NIPT, pt declines. -Following with PT for hx low back pain. - Labor precautions. F/U 4wk Inga Ibarra DO documented in this encounter Plan of Treatment Not on filedocumented as of this encounter Results US OB >14 Weeks Follow Up (10/11/2018 10:25 AM CDT) Anatomical Region Laterality Modality Abdomen/Pelvis Ultrasound Specimen (Source) Anatomical Location Collection Method / Collectio n Time Received Time / Laterality Volume Narrative 10/15/2018 2:55 PM CDT Obstetrical Ultrasound Report OB U/S ? 2nd/3rd Trimester - Transabdominal [facility] Referring physician: Inga Ibarra DO Sisal Operator: Anais Melton Indication: ??Placental position check ?? Dating (mm/dd/yyyy): LMP: Patient's last menstrual period was 03/21/2018. ? EDC: ?? Estimated Date of Delivery: Dec 26, 2018 ?? GA by LMP: ?? 29w1d Current Scan On (mm/dd/yyyy): 10/11/2018 ? EDC: ?? 12/29/2018 ?GA by Current Scan: ?28w5d The calculation of the gestational age b y current scan was based on BPD, HC, AC and FL. ?? Anatomy Scan: [place] gestation. Biometry: BPD 7.42 cm 29w5d 58.1% HC 26.63 cm 29w0d 14.8% AC 23.68 cm 28w0d 13.7% FL 5.34 cm 28w2d 15.4% EFW (lbs/oz) 2 lbs ? 11ozs ? EFW (g) 1209 g 37.8% ? heart rate: 155 bpm presentation: Cephalic Amniotic fluid: 11.99cm Placenta: posterior with placental edge measuring 6.0 cm away from internal cervical os Impression: Resolution of previously low lying place nta, now 6cm from internal os. Fetus cephalic with normal amniotic flui d. Normal growth with estimated weight 2lb 11oz which is 37.8%. Inga Ibarra, DO ? Inga Espinoza Masters DO IMG US ORDERABLES documented in this encounter Visit Diagnoses Diagnosis Encounter for supervision of normal firs t in second trimester - Primary Supervision of normal first Low lying placenta nos or without hemorr shavonne, second trimester Echogenic focus of heart of fetus affect ing antepartum care of mother, single gestation Encounter for supervision of normal firs t in second trimester Supervision of normal first Low lying placenta nos or without hemorr shavonne, second trimester documented in this encounter Care Teams General Dentist Relationship Specialty Start Date End Date No Ref-Primary, Physician PCP - General 02/23/14 documented as of this encounter
--- OUTSIDE RECORDS SUMMARY | 2021-10-01 16:50 | XMS_ITS | Encounter Summary ---
:1995 Author Organization [place] Address [address] [place] [address]. [place] [address] Care Team Providers Name Role Phone No Ref-Primary Primary Care Provider Reason for Visit Diagnostic Imaging Ultrasound (Routine) - Closed Specialty Diagnoses / Procedures Referred By Contact Refer red To Contact Diagnoses Encounter for supervision of normal first in second trimester Low lying placenta nos or without hemorrhage, second trimester Inga Ibarra DO Procedures US OB >14 Weeks Follow Up [address] [facility] 100 [place] [address] Referral ID Status Reason Start Date Expiration Date Visits Requ ested Visits Authorized [id number] Closed 08/13/2018 08/13/2019 1 1 Encounter Details Date Type Department Care Team Description 10/11/2018 Ancillary Procedure [facility] Inga Ibarra En [place] for supervision of normal first in second trimester; [facility] DO Olga Low lying placenta nos or without hemorr shavonne, second trimester [place] 65[address] [facility] JIN 65[address] [facility] [address] 100 [facility] [place] [address] [facility] 100 [place] [address] (Work) [phone] Social History Tobacco Use Types Packs/Day Years [...] Date/Time Associated Diagnosis Comme nts US OB FOLLOW UP >14 Routine 10/11/2018 10:25 AM Encounter for Results for this WEEKS CDT supervision of procedure are in normal first the results in second section. trimester Low lying placenta nos or without hemorrhage, second trimester documented in this encounter Results US OB >14 Weeks Follow Up (10/11/2018 10:25 AM CDT) Anatomical Region Laterality Modality Abdomen/Pelvis Ultrasound Specimen (Source) Anatomical Location Collection Method / Collectio n Time Received Time / Laterality Volume Narrative 10/15/2018 2:55 PM CDT Obstetrical Ultrasound Report OB U/S ? 2nd/3rd Trimester - Transabdominal [facility] Referring physician: Inga Ibarra, Resource Program Teacher: Anais Melton Indication: ??Placental position check ?? [...] is 37.8%. Inga Ibarra, DO ? Inga Ibarra DO IMG US ORDERABLES documented in this encounter Visit Diagnoses Diagnosis Encounter for supervision of normal firs t in second trimester Supervision of normal first Low lying placenta nos or without hemorr shavonne, second trimester documented in this encounter Care Teams Kiln Tender Relationship Specialty Start Date End Date No Ref-Primary, Physician PCP - General 02/23/14 documented as of this encounter
--- OUTSIDE RECORDS SUMMARY | 2021-10-01 16:50 | XMS_ITS | Encounter Summary ---
:1995 Author Organization [place] Address [facility] [address] Care Team Providers Name Role Phone No Ref-Primary Primary Care Provider Reason for Visit Reason Comments Care Encounter Details Date Type Department Care Team Description 10/25/2018 Office [facility] Inga Ibarra for Visit [facility] DO [facility]ga [facility] 65[address] [facility] 100 [place] [address] trimester [address] [place] [address] (Work) [phone] Social History Tobacco Use Types Packs/Day Years Used Date Never Smoker Smokeless Tobacco: Never Used Alcohol Use Standard Drinks/Week Comments No 0 (1 standard drink = 0.6 oz pure alcoho l) Sex Assigned at Date Recorded Female 10/01/2020 10:47 AM CDT documented as of this encounter Last Filed Vital Signs Vital Sign Reading Time Taken Comments Blood Pressure 106/60 10/25/2018 9:57 AM CDT Pulse - - Temperature - - Respiratory Rate - - Oxygen Saturation - - Inhaled Oxygen Concentration - - Weight 83.8 kg (184 lb 12.8 oz) 10/25/2018 9:57 AM CDT Height - - Body Mass Index 33.8 10/23/2018 1:32 PM CDT documented in this encounter Progress Notes Inga Ibarra DO - 10/25/2018 9:50 AM CDT No loss of fluid/vaginal bleeding/regular contractions. + FM Had allergic reaction to pesto. Has known hx of nut allergy. Went to hospital by ambulance, did not take her epi pen as she wasn't sure if she could. Got benadryl in ER. - Labor precautions. F/U 2wk Inga Ibarra DO documented in this encounter Plan of Treatment Not on filedocumented as of this encounter Visit Diagnoses Diagnosis Encounter for supervision of normal firs t in third trimester Supervision of normal first documented in this encounter Care Teams Regional Flatbed Truck Driver Relationship Specialty Start Date End Date No Ref-Primary, Physician PCP - General 02/23/14 documented as of this encounter
--- OUTSIDE RECORDS SUMMARY | 2021-10-01 16:50 | XMS_ITS | Encounter Summary ---
:1995 Author Organization [place] Address [facility] [place] [address] Care Team Providers Name Role Phone No Ref-Primary Primary Care Provider Encounter Details Date Type Department Care Team Description 10/11/2018 [facility] Inga Ibarra Encounter for supervision of normal first in third trimester; [facility] Tobi william Espinoza, DO Need for Tdap vaccination [address] [facility] [address] [place] [address] [address] [place] [address] [place] [address] Social History Tobacco Use Types Packs/Day Years Used Date Never Smoker Smokeless Tobacco: Never Used Alcohol Use Standard Drinks/Week Comments No 0 (1 standard drink = 0.6 oz pure alcoho l) Sex Assigned at Date Recorded Female 10/01/2020 10:47 AM CDT documented as of this encounter Progress Notes Astrid Quinn CMA - 10/11/2018 9:50 AM CDT Screening Questionnaire for Adult Immunization Are you sick today? No Do you have allergies to medications, food, a vaccine component or latex? No Have you ever had a serious reaction after receiving a vaccination? No Do you have a long-term health problem with heart disease, lung disease, asthma, kidney disease, metabolic disease (e.g. diabetes), anemia, or other blood disorder? No Do you have cancer, leukemia, HIV/AIDS, or any other immune system problem? No In the past 3 months, have you taken medications that affect your immune system, such as prednisone, other steroids, or anticancer drugs; drugs for the treatment of rheumatoid arthritis, Crohn???s disease, or psoriasis; or have you had radiation treatments? No Have you had a seizure, or a brain or other nervous system problem? No During the past year, have you received a transfusion of blood or blood products, or been given immune (gamma) globulin or antiviral drug? No For women: Are you or is there a chance you could become during the next month? No Have you received any vaccinations in the past 4 weeks? No Immunization questionnaire answers were all negative. Per orders of Dr. Ibarra, injection of Tdap given by Astrid Quinn. Patient instructed to remain in clinic for 15 minutes afterwards, and to report any adverse reaction to me immediately. Screening performed by Astrid Quinn on 10/11/2018 at 11:23 AM. documented in this encounter Plan of Treatment Not on filedocumented as of this encounter Procedures Procedure Name Priority Date/Time Associated Diagnosis Comme nts OB HEMOGLOBIN Routine 10/11/2018 9:58 Encounter for Results f or this AM CDT supervision of procedure are in normal first the results in third section. trimester GLUCOSE TOLERANCE Routine 10/11/2018 9:58 Encounter for Resul ts for this GEST SCREEN 1 HOUR AM CDT supervision of procedu re are in normal first the results in third section. trimester documented in this encounter Results Glucose tolerance gest screen 1 hour (10/11/2018 9:58 AM CDT) P athologist Signature Glu Gest Screen 103 60 - 129 10/11/2018 [place] 1hr 50g mg/dL 11:17 AM CDT [facility] Specimen Anatomical Collection Method Collection Time Receive d Time (Source) Location / / Volume Laterality Blood specimen 10/11/2018 9:58 9 (specimen) AM CDT 9:59 AM CDT Inga Ibarra DO LAB - BLOOD ORDERABLES Performing Organization Address City/State/ZIP Code Phon e Number [facility] [address] [place] [address] [phone] [facility] [address] (ABNORMAL) OB hemoglobin (10/11/2018 9:58 AM CDT) P athologist Signature Hemoglobin 10.8 (L) 11.7 - 15.7 10/11/2018 [place] g/dL 11:19 AM CDT [facility] Specimen Anatomical Collection Method Collection Time Receive d Time (Source) Location / / Volume Laterality Blood specimen 10/11/2018 9:58 9 (specimen) AM CDT 9:59 AM CDT Inga Espinoza Masters DO LAB - BLOOD ORDERABLES Performing Organization Address City/State/ZIP Code Phon e Number [facility] [address] [place] [address] [facility] 100 documented in this encounter Visit Diagnoses Diagnosis Encounter for supervision of normal firs t in third trimester Supervision of normal first Need for Tdap vaccination Need for prophylactic vaccination with c ombined jzpeuuyfnu-xtherru-bmxkynolq (DTP) vaccine documented in this encounter Care Teams Fence Manufacture Supervisor Relationship Specialty Start Date End Date No Ref-Primary, Physician PCP - General 02/23/14 documented as of this encounter
--- OUTSIDE RECORDS SUMMARY | 2021-10-01 16:50 | XMS_ITS | Encounter Summary ---
:1995 Author Organization [place] Address [address] [place] [address] Care Team Providers Name Role Phone No Ref-Primary Primary Care Provider Encounter Details Date Type Department Care Team Description 07/21/2018 Travel Social History Tobacco Use Types Packs/Day [...] on filedocumented in this encounter Care Teams Sheep Killer Relationship Specialty Start Date End Date No Ref-Primary, Physician PCP - General 02/23/14 documented as of this encounter
--- OUTSIDE RECORDS SUMMARY | 2021-10-01 16:50 | XMS_ITS | Encounter Summary ---
:1995 Author Organization [place] Address [facility] [place] [address] Care Team Providers Name Role Phone No Ref-Primary Primary Care Provider Reason for Visit Reason Onset Date Comments Symptoms 12/02/2018 Encounter Details Date Type Department Care Team Description 12/02/2018 Telephone [facility], Arielle Espinoza, Symptoms Women [place] DO [address] [facility] S out [address] [facility] [address] [place] [phone] [place] [id number] (Wo rk) Social History Tobacco Use Types Packs/Day Years Used Date Never Smoker Smokeless Tobacco: Never Used Alcohol Use Standard Drinks/Week Comments No 0 (1 standard drink = 0.6 oz pure alcoho l) Sex Assigned at Date Recorded Female 10/01/2020 10:47 AM CDT documented as of this encounter Miscellaneous Notes Telephone Encounter - Melia Almeida RN - 12/02/2018 10:19 AM CDT Pt calling to let us know she was just exposed to some sort of a gas leak. She said she got off the elevator and smelled the gas- she felt nauseated, headached. balnace felt off, and vision changes. She said that the baby became very active- moving around a lot. She left [employer] and was told the gas had something to do in the laundry area. She currently is feeling Rt sided low abd pain. Pt was instructed to go to the [facility]. Mac Contacted Dr Ibarra requests that I have the pt go to the ER to be evaluated- [facility] Unit aware of change of plan- pt to go to the ER. I was able to make contact w/ the pt as she was going to the hospital to go to the ER. documented in this encounter Plan of Treatment Not on filedocumented as of this encounter Visit Diagnoses Not on filedocumented in this encounter Care Teams Meat Grading Machine Operator Relationship Specialty Start Date End Date No Ref-Primary, Physician PCP - General 02/23/14 documented as of this encounter
--- OUTSIDE RECORDS SUMMARY | 2021-10-01 16:50 | XMS_ITS | Encounter Summary ---
:1995 Author Organization [place] Address [address] [place] [address] Care Team Providers Name Role Phone No Ref-Primary Primary Care Provider Encounter Details Date Type Department Care Team Description 11/29/2018 Travel Social History Tobacco Use Types Packs/Day [...] on filedocumented in this encounter Care Teams Drafter (Cad) Electrical Relationship Specialty Start Date End Date No Ref-Primary, Physician PCP - General 02/23/14 documented as of this encounter
--- OUTSIDE RECORDS SUMMARY | 2021-10-01 16:50 | XMS_ITS | Encounter Summary ---
:1995 Author Organization [place] Address [address] [place] [address] Care Team Providers Name Role Phone No Ref-Primary Primary Care Provider Reason for Visit Reason Comments Chemical Exposure Encounter Details Date Type Department Care Team Description 12/02/2018 Emergency [facility] Emergency Dept [address] [place] [address] Social History Tobacco Use Types Packs/Day Years Used Date Never Smoker Smokeless Tobacco: Never Used Alcohol Use Standard Drinks/Week Comments No 0 (1 standard drink = 0.6 oz pure alcoho l) Sex Assigned at Date Recorded Female 10/01/2020 10:47 AM CDT documented as of this encounter Last Filed Vital Signs Vital Sign Reading Time Taken Comments Blood Pressure 117/74 12/02/2018 11:07 AM CDT Pulse - - Temperature 36.6 ??C (97.8 ??F) 12/02/2018 11:07 AM CDT Respiratory Rate 16 12/02/2018 11:07 AM CDT Oxygen Saturation 99% 12/02/2018 11:07 AM CDT Inhaled Oxygen Concentration - - Weight 88.5 kg (195 lb) 12/02/2018 11:07 AM CDT Height 157.5 cm (5' 2) 12/02/2018 11:07 AM CDT Body Mass Index 35.67 12/02/2018 11:07 AM CDT documented in this encounter Medications at Time of Discharge Medication Sig Dispensed Refills Start Date End Date EPINEPHrine INJECT 1 PEN UTD FOR 3 06/01/2017 (EPIPEN/ADRENACLICK/OR ALLERGIC REACTION ANY BX GENERIC EQUIV) UTD 0.3 MG/0.3ML injection 2-pack Prenat w/o Take 1 tablet by 90 capsule 3 07/06/2018 M-ZY-Nfqyzss-FA-DHA mouth daily (PNV-DHA) 27-0.6-0.4-300 MG CAPSIndications: ibuprofen (ADVIL/MOTRIN) Take 1 tablet (600 30 tablet 0 06/201802/24/2020 600 MG mg) by mouth every 6 tabletIndications: hours as needed for Indication for care in other (cramping) labor or delivery ranitidine (ZANTAC) 75 Take 150 mg by mouth 0 12/13/2018 MG tablet 2 times daily as needed documented as of this encounter ED Notes Joanne Boyd, LONG - 12/02/2018 11:19 AM CDT Pt sent to [facility] documented in this encounter Plan of Treatment Not on filedocumented as of this encounter Visit Diagnoses Not on filedocumented in this encounter Care Teams Certified Court Interpreter Relationship Specialty Start Date End Date No Ref-Primary, Physician PCP - General 02/23/14 documented as of this encounter
--- OUTSIDE RECORDS SUMMARY | 2021-10-01 16:51 | XMS_ITS | Encounter Summary ---
:1995 Author Organization [place] Address [address] [place] [address]. [place] [address] Care Team Providers Name Role Phone No Ref-Primary Primary Care Provider Reason for Visit Reason Onset Date Comments Patient Request 07/09/2018 Encounter Details Date Type Department Care Team Description 07/09/2018 Telephone [facility] [address] [facility] S out [address] [facility] [address] [place] [address] [place] [id number] (Wo rk) Social History Tobacco Use Types Packs/Day Years Used Date Never Smoker Smokeless Tobacco: Never Used Alcohol Use Standard Drinks/Week Comments No 0 (1 standard drink = 0.6 oz pure alcoho l) Sex Assigned at Date Recorded Female 10/01/2020 10:47 AM CDT documented as of this encounter Miscellaneous Notes Telephone Encounter - Maryana Crawford RN - 07/09/2018 11:32 AM CDT @ 15w5d C/O JORDAN for the past 4 days Affected more by computer/tv light and high pitched noises. Occasional dizziness with position changes, visual changes only with the JORDAN Taking Tylenol regular strength only 1x day Does not drink caffeine ever Has not been sleeping well due to burping in the middle of the night and nausea Pt sounds exhausted-walking while on the phone. Pt admits not eating and drinking as well as she should be but due to nausea States she is sensitive to taking medications right now and hesitant to taking more tylenol. PNV makes her nauseated Recommended ES Tylenol every 6 hrs until JORDAN gone and may take more than a day. Eat with pills. Avoidher PNV for a few days until she gets things under control. Avoid triggers: devices/lights Ice to head, po fluids, rest, take a day off, take care of herself. Recommended Tums/Mylanta and Zantac Unisom/doxylamine for sleep Pt admitted she is walking and could not write any of the suggestions down. Sent [place] message with all suggestions and more to help with her JORDAN/nausea/insomnia in . Stressed to pt to take care of herself and try suggestions. Call if any further questions. Pt verbalized understanding, in agreement with plan, and voiced no further questions. documented in this encounter Plan of Treatment Not on filedocumented as of this encounter Visit Diagnoses Not on filedocumented in this encounter Care Teams Point Of Care Technician Relationship Specialty Start Date End Date No Ref-Primary, Physician PCP - General 02/23/14 documented as of this encounter
--- OUTSIDE RECORDS SUMMARY | 2021-10-01 16:51 | XMS_ITS | Encounter Summary ---
:1995 Author Organization [place] Address [facility] [place] [address] Care Team Providers Name Role Phone No Ref-Primary Primary Care Provider Encounter Details Date Type Department Care Team Description 09/11/2016 Hospital Encounter [facility] Leo Yoo in [facility] Coreen El MD female [facility] [address] [place], [place] [address] [address] [place], [place] [phone] (Work) [phone] Social History Tobacco Use Types Packs/Day Years Used Date Never Smoker Alcohol Use Standard Drinks/Week Comments No 0 (1 standard drink = 0.6 oz pure alcoho l) Sex Assigned at Date Recorded Female 10/01/2020 10:47 AM CDT documented as of this encounter Medications at Time of Discharge Medication Sig Dispensed Refills Start Date End Date Citalopram Hydrobromide (CELEXA PO) 0 05/19/2017 documented as of this encounter Plan of Treatment Not on filedocumented as of this encounter Procedures Procedure Name Priority Date/Time Associated Comments Diagnosis US PELVIC Routine 09/11/2016 12:37 Dyspareunia in Results f or this TRANSABDOMINAL AND PM CDT female procedure are in TRANSVAGINAL the results section. documented in this encounter Results US Pelvic Complete with Transvaginal (09/11/2016 12:37 PM CDT) Anatomical Region Laterality Modality Abdomen/Pelvis Other Specimen (Source) Anatomical Location Collection Method / Collectio n Time Received Time / Laterality Volume Impressions 09/11/2016 12:56 PM CDT CONCLUSION: Normal ultrasound of the pelvis. Narrative 09/11/2016 12:56 PM CDT US PELVIS WITH TRANSVAGINAL NON OB 09/11/2016 12:37 PM INDICATION: Unspecified dyspareunia TECHNIQUE: Transabdominal scans were per formed. Endovaginal ultrasound was performed to better visualize the adnexa. COMPARISON: None. FINDINGS: Uterus measures 6.2 x 4.4 x 3.0 cm. Norm al uterus with no masses. Endometrial thickness is ? mm. Cathy l smooth endometrium. Right ovary measures 3.3 x 2.9 x 2.0 cm. Normal right ovary. 2.3 cm cyst consistent with a dominant follicle. Normal arterial duplex. Left ovary measures 2.9 x 2.1 x 1.8 cm. Normal left ovary. Normal arterial duplex. No significant free fluid in the cul-de- sac. Procedure Note Cornell Krishna MD - 08/20/2020Format ting of this note might be different from the original. US PELVIS WITH TRANSVAGINAL NON OB 09/11/2016 12:37 PM INDICATION: Unspecified dyspareunia TECHNIQUE: Transabdominal scans were per formed. Endovaginal ultrasound was performed to better visualize the adnexa. COMPARISON: None. FINDINGS: Uterus measures 6.2 x 4.4 x 3.0 cm. Norm al uterus with no masses. Endometrial thickness is mm. Normal smooth endometrium. Right ovary measures 3.3 x 2.9 x 2.0 cm. Normal right ovary. 2.3 cm cyst consistent with a dominant follicle. Normal arterial duplex. Left ovary measures 2.9 x 2.1 x 1.8 cm. Normal left ovary. Normal arterial duplex. No significant free fluid in the cul-de- sac. IMPRESSION: CONCLUSION: Normal ultrasound of the pelvis. Coreen Henson MD IMG US ORDERABLES documented in this encounter Visit Diagnoses Diagnosis Dyspareunia in female documented in this encounter Care Teams Handle Finisher Relationship Specialty Start Date End Date No Ref-Primary, Physician PCP - General 02/23/14 documented as of this encounter
--- OUTSIDE RECORDS SUMMARY | 2021-10-01 16:51 | XMS_ITS | Encounter Summary ---
:1995 Author Organization [place] Address [address] [place] [address] Care Team Providers Name Role Phone No Ref-Primary Primary Care Provider Olga Ibarra DO Unavailable Tray Lucas MD Unavailable Deandre Ramos APRN Unavailable Olga Ibarra DO Unavailable Encounter Details Date Type Department Care Team Description 08/20/2016 Communication - [facility] RICHARDS E-VISITS Provider, Ok jen Social History Tobacco Use Types Packs/Day Years [...] 12/17/2019 12/17/2019 12/18/2019 6: 16 PM CDT documented as of this encounter Care Teams Jewel Gauger Relationship Specialty Start Date End Date No Ref-Primary, Physician PCP - General 02/23/14 Inga Ibarra DO Assigned OBGYN Provider 01/06/20 06/09/[address] [place], [place] [id number] Dottie Lucas MD Assigned OBGYN Provider 06/10/20 06/16/[address] [place], [place] [address] Elva Ramos APRN CNM Assigned OBGYN Provider 07/01/20 11/10/[address] [place], [place] [id number] Inga Ibarra DO Assigned OBGYN Provider 06/17/20 06/30/[address] [place], [place] [address] documented as of this encounter
--- OUTSIDE RECORDS SUMMARY | 2021-10-01 16:51 | XMS_ITS | Encounter Summary ---
:1995 Author Organization [place] Address [address] [place] [address] Care Team Providers Name Role Phone No Ref-Primary Primary Care Provider Encounter Details Date Type Department Care Team Description 06/28/2018 Travel Social History Tobacco Use Types Packs/Day [...] on filedocumented in this encounter Care Teams Performance Engineer Relationship Specialty Start Date End Date No Ref-Primary, Physician PCP - General 02/23/14 documented as of this encounter
--- OUTSIDE RECORDS SUMMARY | 2021-10-01 16:51 | XMS_ITS | Encounter Summary ---
:1995 Author Organization [place] Address [facility] [place] [address] Care Team Providers Name Role Phone No Ref-Primary Primary Care Provider Reason for Referral Diagnostic Imaging Ultrasound - Closed Specialty Diagnoses / Procedures Referred By Contact Refer red To Contact Diagnoses with inconclusive viability Le Maya, Procedures US OB Transvaginal Only VAUGHN GLUE SPREADING MACHINE OPERATOR [address] [place] [address] Referral ID Status Reason Start Date Expiration Date Visits Requ ested Visits Authorized [id number] Closed 06/01/2018 06/01/2019 1 1 Encounter Details Date Type Department Care Team Description 06/01/2018 Orders Only [facility] Le Maya Pregn [facility] with [facility] VAUGHN Biggs CNP inconclusive [place] [address] [place] viability (Primary Dx) [address] [facility] [place] [address] [address] [place] [phone] Social History Tobacco Use Types Packs/Day Years Used Date Never Smoker Smokeless Tobacco: Never Used Alcohol Use Standard Drinks/Week Comments No 0 (1 standard drink = 0.6 oz pure alcoho l) Sex Assigned at Date Recorded Female 10/01/2020 10:47 AM CDT documented as of this encounter Progress Notes Maryana Crawford RN - 06/01/2018 4:07 PM CDT Pt has NOB scheduled with ultrasound. Needed order to be placed. Future ultrasound order placed and linked with appt. Closing encounter. documented in this encounter Plan of Treatment Not on filedocumented as of this encounter Results US OB Transvaginal Only (06/03/2018 8:24 AM CDT) Anatomical Region Laterality Modality Abdomen/Pelvis Ultrasound Specimen (Source) Anatomical Location Collection Method / Collectio n Time Received Time / Laterality Volume Narrative 06/03/2018 10:17 AM CDT The calculation of the gestational age by current scan was based on CRL. Anatomy Scan: Gongora gestation. Biometry: CRL ? 3.8 cm ? 10w5d ? Yolk Sac ? 5.7mm ? heart rate: 169bpm Findings: Viable IUP, MAGNO = 1.3x 1.0x 1. 2cm ?? Maternal Structures: Cervix: The cervix appears long and clos ed. Right Adnexa: normal Left Adnexa: normal Impression: Viable IUP 10w3d Jefferson Little MD ?? Le Maya MANUFACTURING ENGINEERING TECHNICIAN GLUE SPREADING MACHINE OPERATOR IMG US ORDERABLES documented in this encounter Visit Diagnoses Diagnosis with inconclusive viabil ity - Primary with inconclusive viabil ity documented in this encounter Care Teams Traffic Control Operator Relationship Specialty Start Date End Date No Ref-Primary, Physician PCP - General 02/23/14 documented as of this encounter
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
--- OUTSIDE RECORDS SUMMARY | 2021-10-01 16:51 | XMS_ITS | Encounter Summary ---
:1995 Author Organization [place] Address [facility] [place] [address] Care Team Providers Name Role Phone No Ref-Primary Primary Care Provider Reason for Referral Mental Health Outpatient - Closed Specialty Diagnoses / Procedures Referred By Contact Refer red To Contact Diagnoses Encounter for supervision of normal first in first trimester Anxiety Inga Ibarra DO [address] [address] Referral ID Status Reason Start Date Expiration Date Visits Requ ested Visits Authorized [id number] Closed 06/28/2018 06/28/2019 1 1 Reason for Visit Reason Comments Care Encounter Details Date Type Department Care Team Description 06/28/2018 Office [facility] Screen ing for raised alpha-fetoprotein levels in amniotic fluid (Primary Dx); Visit [facility] DO Olga Encounter for supervision of normal firs t in first trimester; [place] [address] Anxiety [address] [facility] [address] [address] [address] [place] [id number] (Work) [phone] Social History Tobacco Use Types Packs/Day Years Used Date Never Smoker Smokeless Tobacco: Never Used Alcohol Use Standard Drinks/Week Comments No 0 (1 standard drink = 0.6 oz pure alcoho l) Sex Assigned at Date Recorded Female 10/01/2020 10:47 AM CDT documented as of this encounter Last Filed Vital Signs Vital Sign Reading Time Taken Comments Blood Pressure 102/64 06/28/2018 10:04 AM CDT Pulse - - Temperature - - Respiratory Rate - - Oxygen Saturation - - Inhaled Oxygen Concentration - - Weight 72.9 kg (160 lb 12.8 oz) 06/28/2018 10:04 AM CDT Height - - Body Mass Index 29.41 06/03/2018 8:38 AM CDT documented in this encounter Progress Notes Inga Ibarra DO - 06/28/2018 9:50 AM CDT No loss of fluid/vaginal bleeding/regular contractions. No FM Felling better overall. Took some time off for mental health, felt like her working environment was a bit toxic and was worried about lifting. Feels finally now shes ready to go back. Used to go to therapy until 3 yrs ago. Is considering Innatal, wants to check with insurance -Anxiety. Will refer to mental health for counseling. No red flags. Discussed course of anxiety or other mental health disorders in and PP, increased risk PP depression. Pt aware of risks anddesires to monitor closely. - Labor precautions. F/U 3wk Inga Ibarra DO documented in this encounter Plan of Treatment Scheduled Referrals Name Type Priority Associated Diagnoses Order S [facility] MENTAL HEALTH REFERRAL Referral Routine Encounter for Orde red: 06/28/2018 - Adult; Outpatient supervision of normal Treatment; first in Individual/Couples/Famil first t rimester y/Group Therapy/Health Anxiety Psychology; Other: Behavioral Healthcare Providers ; We will contact you to schedule the appointment or please call with any questi... documented as of this encounter Visit Diagnoses Diagnosis Screening for raised alpha-fetoprotein l evels in amniotic fluid - Primary Encounter for supervision of normal firs t in first trimester Supervision of normal first Anxiety Anxiety state, unspecified documented in this encounter Care Teams Industrial Energy Engineer Relationship Specialty Start Date End Date No Ref-Primary, Physician PCP - General 02/23/14 documented as of this encounter
--- OUTSIDE RECORDS SUMMARY | 2021-10-01 16:51 | XMS_ITS | Encounter Summary ---
:1995 Author Organization [place] Address [address] [place] [address]. [place] [address] Care Team Providers Name Role Phone No Ref-Primary Primary Care Provider Reason for Visit Diagnostic Imaging Ultrasound - Closed Specialty Diagnoses / Procedures Referred By Contact Refer red To Contact Diagnoses with inconclusive viability Le Maya, Procedures US OB Transvaginal Only MAXILLOFACIAL PROSTHETICS DENTIST WRAPPING CLERK [address] [facility] [address] [place] [address] Referral ID Status Reason Start Date Expiration Date Visits Requ ested Visits Authorized [id number] Closed 06/01/2018 06/01/2019 1 1 Encounter Details Date Type Department Care Team Description 06/03/2018 Ancillary Procedure [facility] Pre [facility] with [facility] inconclusiv e [place] viability [address] [facility] [address] [place] [address] Social History Tobacco Use Types Packs/Day [...] Date/Time Associated Diagnosis Comme nts US OB TRANSVAGINAL Routine 06/03/2018 8:24 with Res ults for this ONLY AM CDT inconclusive procedure are in viability the results section. documented in this encounter Results US OB Transvaginal Only [...] 10w3d Jefferson Little MD ?? Le Maya MAXILLOFACIAL PROSTHETICS DENTIST WRAPPING CLERK IMG US ORDERABLES documented in this encounter Visit Diagnoses Diagnosis with inconclusive viabil ity documented in this encounter Care Teams Enrichment Assistant Relationship Specialty Start Date End Date No Ref-Primary, Physician PCP - General 02/23/14 documented as of this encounter
--- OUTSIDE RECORDS SUMMARY | 2021-10-01 16:51 | XMS_ITS | Encounter Summary ---
:1995 Author Organization [place] Address [address] [place] [address] Care Team Providers Name Role Phone No Ref-Primary Primary Care Provider Encounter Details Date Type Department Care Team Description 06/03/2018 Travel Social History Tobacco Use Types Packs/Day [...] on filedocumented in this encounter Care Teams Transportation Modeler Relationship Specialty Start Date End Date No Ref-Primary, Physician PCP - General 02/23/14 documented as of this encounter
--- OUTSIDE RECORDS SUMMARY | 2021-10-01 16:51 | XMS_ITS | Encounter Summary ---
:1995 Author Organization [place] Address [address] [place] [address] Care Team Providers Name Role Phone No Ref-Primary Primary Care Provider Encounter Details Date Type Department Care Team Description 07/19/2018 Travel Social History Tobacco Use Types Packs/Day [...] on filedocumented in this encounter Care Teams Demo Coordinator Relationship Specialty Start Date End Date No Ref-Primary, Physician PCP - General 02/23/14 documented as of this encounter
--- OUTSIDE RECORDS SUMMARY | 2021-10-01 16:51 | XMS_ITS | Encounter Summary ---
:1995 Author Organization [place] Address [facility] [place] [address] Care Team Providers Name Role Phone No Ref-Primary Primary Care Provider Olga Ibarra DO Unavailable Tray Lucas MD Unavailable Deandre Ramos APRN CN Unavailable Olga Ibarra DO Unavailable Jay Sapp MD Unavailable Reason for Visit Reason Onset Date Comments Innatal insurance coverage 06/03/2018 questioning i ns coverage for Innatal testing Encounter Details Date Type Department Care Team Description 06/03/2018 Telephone [facility] Le Maya al insurance [facility] Tobinavi Biggs APRN CNP coverage (questioning [address] [facility] in s coverage for [place] [address] Innatal testing) [address] [place] [address] [place] [address] [phone] Social History Tobacco Use Types Packs/Day Years Used Date Never Smoker Smokeless Tobacco: Never Used Alcohol Use Standard Drinks/Week Comments No 0 (1 standard drink = 0.6 oz pure alcoho l) Sex Assigned at Date Recorded Female 10/01/2020 10:47 AM CDT documented as of this encounter Miscellaneous Notes Telephone Encounter - Funmilayo Ramos - 06/03/2018 10:03 AM CDT FYI. No action needed today. Just prior to blood draw, pt called her carrier to ask if Innatal would be covered. She was told that the clinic would need to get the ok from the insurance company before doing the test in order for the test to be covered. Explained to the patient that the information she was given sounds incorrect because to my knowledge, prior auths are not done for blood tests. She declines the test for now and will revisit later. Encouraged pt to call Carl at [facility] to explain the situation and ask forguidance. Info/phone number given to pt. All other OB labs drawn today. PT seems unconcerned with delaying Innatal test, she is comfortable with the plan to investigate and possibly draw later. documented in this encounter Plan of Treatment Not on filedocumented as of this encounter Visit Diagnoses Not on filedocumented in this encounter Additional Health Concerns Infection Onset Date Last Indicated Resolved Time Rule Out COVID-19 12/17/2019 12/17/2019 12/18/2019 6: 16 PM CDT documented as of this encounter Care Teams Commercial Loan Processor Relationship Specialty Start Date End Date No Ref-Primary, Physician PCP - General 02/23/14 s, Inga Espinoza DO Assigned OBGYN Provider 01/06/20 06/09/20 [address] [place] [address] Dottie Lucas MD Assigned OBGYN Provider 06/10/20 06/16/20 [address] [place] [address] Elva Ramos APRN CNM Assigned OBGYN Provider 07/01/20 11/10/[address] [place] [address] Masters, Inga Espinoza DO Assigned OBGYN Provider 06/17/20 06/30/20 [address] [facility] [address] [place] [address] Nicolasa Sapp MD Assigned OBGYN Provider 11/11/20 [address] [place] [address] documented as of this encounter
--- OUTSIDE RECORDS SUMMARY | 2021-10-01 16:51 | XMS_ITS | Encounter Summary ---
:1995 Author Organization [place] Address [address] [facility] [place] [address] Care Team Providers Name Role Phone No Ref-Primary Primary Care Provider Reason for Visit Reason Comments Abdominal Pain STD testing Test Encounter Details Date Type Department Care Team Description 06/19/2017 Office Visit [facility] Cecilia Hogan MD Screen for STD (sexually transmitted dis ease) (Primary Dx); [facility] [address] [facility] Unprotected sex; [address] Vaginal discharge; [place], [place] Bilateral lower abdominal cramping; [id number] Bacterial vaginosis [phone] (Wo rk) Social History Tobacco Use Types Packs/Day Years Used Date Never Smoker Smokeless Tobacco: Never Used Alcohol Use Standard Drinks/Week Comments No 0 (1 standard drink = 0.6 oz pure alcoho l) Sex Assigned at Date Recorded Female 10/01/2020 10:47 AM CDT documented as of this encounter Last Filed Vital Signs Vital Sign Reading Time Taken Comments Blood Pressure 100/66 06/19/2017 8:40 PM CDT Pulse 68 06/19/2017 8:40 PM CDT Temperature 36.1 ??C (97 ??F) 06/19/2017 8:40 PM CDT Respiratory Rate 16 06/19/2017 8:40 PM CDT Oxygen Saturation 97% 06/19/2017 8:40 PM CDT Inhaled Oxygen Concentration - - Weight 61.7 kg (136 lb) 06/19/2017 8:40 PM CDT Height 157.5 cm (5' 2) 06/19/2017 8:40 PM CDT Body Mass Index 24.87 06/19/2017 8:40 PM CDT documented in this encounter Patient Instructions Patient InstructionsRosa M Hogan MD - 06/19/2017 7:30 PM CDT Images from the original note were not included. Bacterial Vaginosis You have a vaginal infection called bacterial vaginosis (BV). Both good and bad bacteria are presentin a healthy vagina. BV occurs when these bacteria get out of balance. The number of bad bacteria increase. And the number of good bacteria decrease. BV may or may not cause symptoms. If symptoms do occur, they can include: ?? Thin, dumont, milky-white, or sometimes green discharge ?? Unpleasant odor or ???fishy?? smell ?? Itching, burning, or pain in or around the vagina It is not known what causes BV, but certain factors can make the problem more likely. This can include: ?? Douching ?? Having sex with a new partner ?? Having sex with more than one partner BV will sometimes go away on its own. But treatment is usually recommended. This is because untreated BV can increase the risk of more serious health problems such as: ?? Pelvic inflammatory disease (PID) ?? delivery (giving to a baby early if you???re ) ?? HIV and certain other sexually transmitted diseases (STDs) ?? Infection after surgery on the reproductive organs Home care General care ?? BV is most often treated with medicines called antibiotics. These may be given as pills or as a vaginal cream.??If antibiotics are prescribed, be sure to use them exactly as directed. Also, be sure to complete all of the medicine, even if your symptoms go away. ?? Avoid douching or having sex during treatment. ?? If you have sex with a female partner, ask your healthcare provider if she should also be treated. Prevention ?? Limit or avoid douching. ?? Avoid having sex. If you do have sex, then take steps to lower your risk: ?? Use condoms when having sex. ?? Limit the number of partners you have sex with. Follow-up care Follow up with your healthcare provider, or as advised. When to seek medical advice Call your healthcare provider right away if: ?? You have a fever of??100.4??F (38??C)??or higher, or as directed by your provider. ?? Your symptoms worsen, or they don???t go away within a few days of starting treatment. ?? You have new pain in the lower belly??or pelvic region. ?? You have side effects that bother you or a reaction to the pills or cream you???re prescribed. ?? You or any partners you have sex with have new symptoms, such as a rash, joint pain, or sores. Date Last Reviewed: 10/12/2014 ?? [id number] [employer]. [address] [place] [address]. All rights reserved. This information is not intended as a substitute for professional medical care. Always follow your healthcare professional's instructions. documented in this encounter Progress Notes Rosa M Hogan MD - 06/19/2017 7:30 PM CDT SUBJECTIVE HPI: Ava Parker is a 21 year old female who presents with the CC of abdominal/pelvic pain. Pain is located in the lower abdominal area, with radiation to None. The pain is characterized as dull, and at worst is a level 6 on a scale of 1-10. Pain has been present for 2 week(s) and is stable.Cramps a week before period and then just finished period and pain has persisted. EXACERBATING FACTORS: sitting RELIEVING FACTORS: lying down helps. ASSOCIATED SX: nausea, constipation, headache. No dysuria, frequency or urgency. No vomiting or diarrhea. Yellow discharge, stronger odor. No lesions. Sex recently and condom broke - happened two weeks ago. Has been told she has a forward facing cervix. Recently checked for STDs last summer Past Medical History: Diagnosis Date ??? Anxiety ??? Conduct disorder ??? Depression ??? Gastroesophageal reflux disease ??? PTSD (post-traumatic stress disorder) ??? Uncomplicated asthma excercise induced Current Outpatient Prescriptions Medication Sig Dispense Refill ??? metroNIDAZOLE (FLAGYL) 500 MG tablet Take 1 tablet (500 mg) by mouth 2 times daily 14 tablet 0 Social History Substance Use Topics ??? Smoking status: Never Smoker ??? Smokeless tobacco: Never Used ??? Alcohol use No ROS: GI: lower abdominal pain bilaterally : normal menstrual cycles, vaginal discharge Review of systems negative except as stated above. OBJECTIVE: BP 100/66 (BP Location: Left arm, Patient Position: Chair, Cuff Size: Adult Regular) Pulse 68 Temp 97 ??F (36.1 ??C) (Oral) Resp 16 Ht 5' 2 (1.575 m) Wt 136 lb (61.7 kg) SpO2 97% BMI 24.87 kg/m2 GENERAL APPEARANCE: healthy, alert and no distress EYES: EOMI, PERRL, conjunctiva clear HENT: Nose and mouth without ulcers, erythema or lesions NECK: supple, nontender, no lymphadenopathy RESP: lungs clear to auscultation - no rales, rhonchi or wheezes CV: regular rates and rhythm, normal S1 S2, no murmur noted ABDOMEN: soft, no HSM or masses and bowel sounds normal, mild tenderness to palpation of lower anterior pelvic region lateral to suprapubic region NEURO: Normal strength and tone, sensory exam grossly normal, normal speech and mentation SKIN: no suspicious lesions or rashes Wet Prep: + Clue Cells ASSESSMENT: Bacterial Vaginosis Vaginal Discharge Lower abdominal pain, bilateral See Orders in Epic - Metronidazole 500mg PO BID x 7 days -Encouraged her to refrain for EtOH use and sexual activity during treatment course -Will call her with results if any of blood or urine testing for STDs returns positive from today (confirmed phone number) -Encouraged testing prior to initiating sexual activity with any new partners Rosa M Hogan MD documented in this encounter Plan of Treatment Not on filedocumented as of this encounter Procedures Procedure Name Priority Date/Time Associated Diagnosis Comme nts WET PREPARATION Routine 06/19/2017 9:40 Vaginal discharge Res ults for this PM CDT procedure are i n the results section. BETA HCG QUALITATIVE Routine 06/19/2017 9:14 Unprotected sex Results for this IFA URINE PM CDT procedure are i n the results section. HEPATITIS B SURFACE Routine 06/19/2017 9:13 Screen for STD Re sults for this ANTIBODY PM CDT (sexually procedure are i n transmitted disease) the res ults section. HERPES SIMPLEX VIRUS Routine 06/19/2017 9:13 Screen for STD R esults for this TYPE 1 AND 2 IGG PM CDT (sexually procedure a re in transmitted disease) the res ults section. HIV ANTIGEN ANTIBODY Routine 06/19/2017 9:13 Screen for STD R esults for this COMBO PM CDT (sexually procedure are i n transmitted disease) the res ults section. NEISSERIA Routine 06/19/2017 9:13 Screen for STD Results f or this GONORRHOEAE PCR PM CDT (sexually procedure ar e in transmitted disease) the res ults section. HEPATITIS C ANTIBODY Routine 06/19/2017 9:13 Screen for STD R esults for this PM CDT (sexually procedure are i n transmitted disease) the res ults section. HEPATITIS B SURFACE Routine 06/19/2017 9:13 Screen for STD Re sults for this ANTIGEN PM CDT (sexually procedure are i n transmitted disease) the res ults section. HEPATITIS B CORE Routine 06/19/2017 9:13 Screen for STD Resul ts for this ANTIBODY PM CDT (sexually procedure are i n transmitted disease) the res ults section. CHLAMYDIA Routine 06/19/2017 9:13 Screen for STD Results f or this TRACHOMATIS PCR PM CDT (sexually procedure ar e in transmitted disease) the res ults section. ANTI TREPONEMA Routine 06/19/2017 9:13 Screen for STD Results for this PM CDT (sexually procedure are i n transmitted disease) the res ults section. documented in this encounter Results (ABNORMAL) Wet prep (06/19/2017 9:40 PM CDT) Component Value Ref Test Analysis Performed At [facility] Range Method Time Signature Specimen Vagina [facility] Description [facility] Wet Prep No Trichomonas 06/19/2017 [facility] seen 9:49 PM CDT [facility] Wet Prep Clue cells 06/19/2017 [facility] seen (A) 9:49 PM CDT [facility] Wet Prep No yeast seen 06/19/2017 [facility] 9:49 PM CDT [facility] Specimen Anatomical Collection Method Collection Time Receive d Time (Source) Location / / Volume Laterality Specimen from 06/19/2017 9:40 06/19/2017 vagina PM CDT 9:45 PM CDT (specimen) Rosa M Hogan MD LAB - MICRO GENERAL ORDERABL ES Performing Organization Address City/[facility]/ZIP Code Phon e Number [facility] [address] [place] [phone] Beta HCG qual IFA urine (06/19/2017 9:14 PM CDT) Patholo gist Method Time Signature Beta HCG Qual Negative NEG^Negati 06/19/2017 [place] IFA Urine ve 9:27 PM CDT [facility] Specimen Anatomical Collection Method Collection Time Receive d Time (Source) Location / / Volume Laterality Urine specimen 06/19/2017 9:14 8 (specimen) PM CDT 9:19 PM CDT Syed Montesinos APRN, CNP LAB - URINE ORDERABLES Performing Organization Address City/[facility]/ZIP Code Phon e Number [facility] [address] [place] [phone] (ABNORMAL) Herpes Simplex Virus 1 and 2 IgG [[id number]] (06/19/2017 9:13 PM CDT) P athologist Signature Herpes Simplex 4.5 (H) 0.0 - 0.8 06/22/2017 [facility] Virus Type 1 AI 12:03 PM CDT [facility] Comment: Positive. ??IgG antibody to HSV-1 detect ed. Antibody index (AI) values reflect quali tative changes in antibody concentration that cannot be directly as sociated with clinical condition or disease state. Herpes Simplex <0.2 0.0 - 0.8 AI 06/22/2017 12:03 PM [facility] [place] Virus Type 2 IgG CDT [facility] Comment: No HSV-2 IgG antibodies detected. Antibody index (AI) values reflect quali tative changes in antibody concentration that cannot be directly as sociated with clinical condition or disease state. Specimen Anatomical Collection Method Collection Time Receive d Time (Source) Location / / Volume Laterality Blood specimen 06/19/2017 9:13 8 (specimen) PM CDT 9:18 PM CDT Syed Montesinos APRN, CNP LAB - BLOOD ORDERABLES Performing Organization Address City/State/ZIP Code Phon e Number [facility] [address] [place] [address] [facility] Neisseria gonorrhoeae PCR [[id number]] (06/19/2017 9:13 PM CDT) [facility] Method Time Signature Specimen Urine 06/19/2017 [facility] Descrip 9:19 PM CDT [facility] N Gonorrhea Negative NEG^Negati 06/21/2017 INFECTIOUS PCR ve 1:36 PM CDT [facility] Comment: Negative for N. gonorrhoeae rRNA by bo scription mediated amplification. A negative result by procurement assistant media danielle amplification does not preclude the presence of N. gonorrhoeae infection because results are dependent on proper and adequate collection, absence of inhibitors, and sufficient rRNA to be detected. Specimen Anatomical Collection Method Collection Time Receive d Time (Source) Location / / Volume Laterality Urine specimen 06/19/2017 9:13 8 (specimen) PM CDT 9:18 PM CDT Syed Montesinos APRN, CNP LAB - MICRO GENERAL OR DERABLES Performing Organization Address City/[facility]/ZIP [facility] [place] e Number INFECTIOUS DISEASES [address] [place] [address] DIAGNOSTIC LABORATORY, [facility] [address] [address] [facility] INFECTIOUS DISEASE [address] [place], [place] [phone] [place] [address] DIAGNOSTIC LABORATORY Chlamydia trachomatis PCR [[id number]] (06/19/2017 9:13 PM CDT) [facility] Method Time Signature Specimen Urine 06/19/2017 [place] Description 9:19 PM CDT [facility] Chlamydia Negative NEG^Negat 06/21/2017 INFECTIOUS Trachomatis PCR [place] 1:36 PM CDT [facility] Comment: Negative for C. trachomatis rRNA by bo scription mediated amplification. A negative result by procurement assistant media danielle amplification does not preclude the presence of C. trachomatis infection because results are dependent on proper and adequate collection, absence of inhibitors, and sufficient rRNA to be detected. Specimen Anatomical Collection Method Collection Time Receive d Time (Source) Location / / Volume Laterality Urine specimen 06/19/2017 9:13 8 (specimen) PM CDT 9:18 PM CDT Syed Montesinos APRN, CNP LAB - MICRO GENERAL OR DERABLES Performing Organization Address City/State/ZIP Code Phon e Number INFECTIOUS DISEASES [address] [place] [address] DIAGNOSTIC LABORATORY, [facility] [address] [place] [address] [facility] INFECTIOUS DISEASE [address] [place], [place] [address] DIAGNOSTIC LABORATORY Anti Treponema [[id number]] (06/19/2017 9:13 PM CDT) Analysis Performed At Patho logist Time Signature Treponema Negative NEG^Negati 06/21/2017 [facility] ve 11:25 AM CDT [facility] Specimen Anatomical Collection Method Collection Time Receive d Time (Source) Location / / Volume Laterality Blood specimen 06/19/2017 9:13 8 (specimen) PM CDT 9:18 PM CDT Syed Montesinos APRN, CNP LAB - BLOOD ORDERABLES Performing Organization Address City/[facility]/ZIP Code Phon e Number [facility] [address] [place], [place] [phone] [place] [address] Hepatitis C antibody [[id number]] (06/19/2017 9:13 PM CDT) [facility] gist Method Time Signature Hepatitis C Nonreactive NR^Nonrea 06/22/2017 [facility] Antibody ctive 1:51 PM CDT [facility] Comment: Assay performance characteristics have n ot been established for newborns, infants, and children Specimen Anatomical Collection Method Collection Time Receive d Time (Source) Location / / Volume Laterality Blood specimen 06/19/2017 9:13 8 (specimen) PM CDT 9:18 PM CDT Syed Montesinos APRN, CNP LAB - BLOOD ORDERABLES Performing Organization Address City/[facility]/ZIP Code Phon e Number [facility] [address] Hepatitis B surface antigen [[id number]] (06/19/2017 9:13 PM CDT) [facility] Method Time Signature Hep B Surface Nonreactive NR^Nonrea 06/22/2017 [facility] Agn ctive 1:51 PM CDT [facility] Specimen Anatomical Collection Method Collection Time Receive d Time (Source) Location / / Volume Laterality Blood specimen 06/19/2017 9:13 8 (specimen) PM CDT 9:18 PM CDT Syed Montesinos APRN, CNP LAB - BLOOD ORDERABLES Performing Organization Address City/[facility]/ZIP Code Phon e Number [facility] [address] Hepatitis B Surface Antibody [[id number]] (06/19/2017 9:13 PM CDT) P athologist Signature Hepatitis B 0.95 <8.00 06/22/2017 [facility] Surface m[IU]/mL 1:51 PM CDT [facility] Comment: Nonreactive, No antibody detect ed when the value is less than 8.00 m[IU]/mL. Specimen Anatomical Collection Method Collection Time Receive d Time (Source) Location / / Volume Laterality Blood specimen 06/19/2017 9:13 8 (specimen) PM CDT 9:18 PM CDT Syed Montesinos APRN, CNP LAB - BLOOD ORDERABLES Performing Organization Address City/[facility]/ZIP Code Phon e Number [address] Hepatitis B core antibody [[id number]] (06/19/2017 9:13 PM CDT) [facility] Method Time Signature Hepatitis B Nonreactive NR^Nonrea 06/22/2017 [facility] Core Naomie ctive 1:51 PM CDT [facility] Specimen Anatomical Collection Method Collection Time Receive d Time (Source) Location / / Volume Laterality Blood specimen 06/19/2017 9:13 8 (specimen) PM CDT 9:18 PM CDT Syed Montesinos APRN, CNP LAB - BLOOD ORDERABLES Performing Organization Address City/[facility]/ZIP Code Phon e Number [facility] [address] HIV Antigen Antibody Combo [[id number]] (06/19/2017 9:13 PM CDT) [facility] Method Time Signature HIV Antigen Nonreactive NR^Nonrea 06/22/2017 [facility] Antibody ctive 1:51 PM CDT [facility] Comment: HIV-1 p24 Ag & HIV-1/HIV-2 Ab N ot Detected Specimen Anatomical Collection Method Collection Time Receive d Time (Source) Location / / Volume Laterality Blood specimen 06/19/2017 9:13 8 (specimen) PM CDT 9:18 PM CDT Syed Montesinos APRN LOAN ANALYST LAB - BLOOD ORDERABLES Performing Organization Address City/State/ZIP Code Phon e Number [facility] [address] [place], [place] [phone] [place] [address] documented in this encounter Visit Diagnoses Diagnosis Screen for STD (sexually transmitted dis ease) - Primary Screening examination for venereal disea se Unprotected sex Problems related to high-risk sexual beh avior Vaginal discharge Leukorrhea, not specified as infective Bilateral lower abdominal cramping Abdominal pain, other specified site Bacterial vaginosis Vaginitis and vulvovaginitis, unspecifie d documented in this encounter 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
--- OUTSIDE RECORDS SUMMARY | 2021-10-01 16:51 | XMS_ITS | Encounter Summary ---
:1995 Author Organization [facility] Address [address] [place] [id number] Care Team Providers Name Role Phone No Ref-Primary Primary Care Provider Olga Ibarra DO Unavailable Tray Lucas MD Unavailable Deandre Ramos APRN Unavailable Olga Ibarra DO Unavailable Reason for Visit Reason Comments Medication Refill Encounter Details Date Type Department Care Team Description 07/04/2016 Communication - [facility] Centralized [place], Medi cation Refill [facility] Scheduling [place] [address] [place] [address] Social History Tobacco Use Types Packs/Day Years [...] as of this encounter Visit Diagnoses Diagnosis Allergy to other foods documented in this encounter Additional Health Concerns Infection Onset Date Last Indicated Resolved Time Rule Out COVID-19 12/17/2019 12/17/2019 12/18/2019 6: 16 PM CDT documented as of this encounter Care Teams Supervisor [employer] Relationship Specialty Start Date End Date No Ref-Primary, Physician PCP - General 02/23/14 Inga Ibarra DO Assigned OBGYN Provider 01/06/20 06/09/20 [address] [place] [id number] Dottie Lucas MD Assigned OBGYN Provider 06/10/20 06/16/20 [address] [place] [address] Elva Ramos APRN CNM Assigned OBGYN Provider 07/01/20 11/10/[address] [place] [address] Inga Ibarra DO Assigned OBGYN Provider 06/17/20 06/30/20 [address] [place] [address] documented as of this encounter
--- OUTSIDE RECORDS SUMMARY | 2021-10-01 16:51 | XMS_ITS | Encounter Summary ---
:1995 Author Organization [facility] Address [address] [place] [id number] Care Team Providers Name Role Phone No Ref-Primary Primary Care Provider Olga Ibarra DO Unavailable Tray Lucas MD Unavailable Deandre Ramos APRN Unavailable Olga Ibarra DO Unavailable Reason for Visit Reason Comments Exposure to STD would like recheck on STD Encounter Details Date Type Department Care Team Description 02/19/2016 Office Visit - [facility] Yu Pritchett MD [facility] [address] [place] [address] [place] [address] Screening examination for venereal disea se; [facility] Provider, Historical History of chlamydia [place] [address] [place] [address] S, [address] [place] [id number] Social History Tobacco Use Types Packs/Day Years [...] - Inhaled Oxygen Concentration - - Weight 60.8 kg (134 lb) 02/19/2016 11:09 AM FRACTIONATING STILL OPERATOR Height 158.1 cm (5' 2.25) 02/19/2016 11:09 AM FRACTIONATING STILL OPERATOR Body Mass Index 24.31 02/19/2016 11:09 AM FRACTIONATING STILL OPERATOR Body Mass Index Percentile 77.84 % 02/19/2016 11:[address] Growth Chart: CDC (Girls, 2-20 Years) documented in this encounter Progress Notes Yu Pritchett MD - 02/19/2016 11:00 AM CST Assessment: This is an 20 y.o.female who presents for follow-up of a recent chlamydia infection diagnosed on February 11. 1. Screening examination for venereal disease Syphilis Screen, [place] HIV Antigen/Antibody Screening [place] Hepatitis C Antibody (Anti-HCV) Hepatitis B Surface Antigen (HBsAG) Plan: The patient had wanted to be tested to see if her chlamydia had resolved, but I explained that it was too soon to do that since the test remains positive for 6-8 weeks after the original diagnosis. She has been adequately treated. We discussed STDs at length and the importance of condom use,though she was also cautioned that condoms are not perfect for either contraception or STD protection and by having multiple partners is putting herself at risk. I have ordered serum testing for otherSTDs. Since she is having no current urinary symptoms, I do not think that needs to be pursued since she may have had urethral chlamydia which is now resolved. I did tell her to follow-up if she has any recurrence of urinary symptoms. She insists that she has not had unprotected sex for at least 6 months or longer, and if that is truly the case then she does not need follow-up serology in 6 months. She should return for reevaluation if she has recurrence of symptoms or any concerns. Subjective: This is an 20 y.o.female who presents for follow-up of a chlamydia infection diagnosed 1 week ago on February 11. She is a very inconsistent historian. She told me today that she had presented for evaluation because she had had bleeding with intercourse and was concerned. However, the notes from walk-in care document that she presented with urinary symptoms of urgency, frequency, and urinary incontinence. She denied bleeding. She told that provider that she had had 3 partners in the last year and had used condoms inconsistently. She told the provider that her last intercourse was3 weeks earlier and that she had used a condom. She tells me now today that she has had 4 partners in the last year. She says that throughout her hakan year in high school she was abstinent, and that since her period of abstinence she has had only one partner with whom she used condoms consistently. This timeframe does not reconcile with the history that she is giving. She is concerned that she h as had chlamydia for a very long time, from prior to her abstinent period. She has been reading online and is now aware that chlamydia can cause infertility so she is worried. She has notified all 4 partners. She says her most recent partner had testing for STDs before they became sexually active and that they used condoms with every act of intercourse. She is also concerned because she was told that there was lots of stuff in her urine during the visit last week. Objective: Visit Vitals ??? BP 108/60 (Patient Site: Left Arm, Patient Position: Sitting) ??? Pulse 84 ??? Ht 5' 2.25 (1.581 m) ??? Wt 134 lb (60.8 kg) ??? LMP 02/19/2016 ??? No ??? BMI 24.31 kg/m2 History Smoking Status ??? Never Smoker Smokeless Tobacco ??? Never Used Physical Exam: The patient was not examined today. She is extremely anxious. Lab results from the walk-in care visit are scanned into this note below. Labs: Results for orders placed or performed in visit on 02/12/16 Culture, Urine Result Value Ref Range Culture Mixture of urogenital organisms Chlamydia trachomatis & Neisseria gonorrhoeae, Amplified Detection Result Value Ref Range Chlamydia trachomatis, Amplified Detection Positive (A) Negative Neisseria gonorrhoeae, Amplified Detection Negative Negative Wet Prep, Vaginal Result Value Ref Range Yeast Result No yeast seen No yeast seen Trichomonas No Trichomonas seen No Trichomonas seen Clue Cells, Wet Prep No Clue cells seen No Clue cells seen Urinalysis-UC if Indicated Result Value Ref Range Color, UA Yellow Colorless, Yellow, Straw, Light Yellow Clarity, UA Slightly Cloudy (A) Clear Glucose, UA Negative Negative Bilirubin, UA Negative Negative Ketones, UA Negative Negative Specific [place], UA >=1.030 1.002 - 1.030 Blood, UA Moderate (A) Negative pH, UA 5.5 4.5 - 8.0 Protein, UA 100 mg/dL (A) Negative mg/dL Urobilinogen, UA 0.2 E.U./dL 0.2 E.U./dL, 1.0 E.U./dL Nitrite, UA Negative Negative Leukocytes, UA Trace (A) Negative Bacteria, UA Few (A) None Seen hpf RBC, UA 0-2 None Seen, 0-2 hpf WBC, UA 10-25 (A) None Seen, 0-5 hpf Squam Epithel, UA 5-10 (A) None Seen, 0-5 lpf , Urine Result Value Ref Range Test, Urine Negative Negative Specific [place], UA >=1.030 1.001 - 1.030 Current Outpatient Prescriptions on File Prior to Visit Medication Sig Dispense Refill ??? albuterol (PROAIR HFA) 90 mcg/actuation inhaler Inhale 2 puffs every 6 (six) hours as needed forwheezing. ??? budesonide-formoterol (SYMBICORT) 80-4.5 mcg/actuation inhaler Inhale 2 puffs 2 (two) times a day. ??? desogestrel-ethinyl estradiol (RECLIPSEN, 28,) 0.15-0.03 mg per tablet TAKE ONE TABLET BY MOUTH EVERY DAY 84 tablet 4 ??? EPINEPHrine (EPIPEN 2-ISABELLE) 0.3 mg/0.3 mL atIn TAKE DIRECTED FOR ALLERGIC REACTION 3 Pre-filled Pen Syringe 0 ??? sulfamethoxazole-trimethoprim (BACTRIM) 400-80 mg per tablet Take 2 tablets by mouth 2 (two) times a day for 10 days. 40 tablet 0 No current facility-administered medications on file prior to visit. Yu Pritchett M.D. This note has been dictated using voice recognition software. Any grammatical, typographical, or context distortions are unintentional and inherent to the software. documented in this encounter Plan of Treatment Not on filedocumented as of this encounter Procedures Procedure Name Priority Date/Time Associated Diagnosis Comme nts HIV ANTIGEN Routine 02/19/2016 11:43 AM Results for this ANTIBODY COMBO FRACTIONATING STILL OPERATOR procedure are in the results section. TREPONEMA ABS W Routine 02/19/2016 11:43 AM Resul ts for this REFLEX TO RPR AND FRACTIONATING STILL OPERATOR procedure are in TITER the results section. HEPATITIS C Routine 02/19/2016 11:43 AM Results for this ANTIBODY FRACTIONATING STILL OPERATOR procedure are i n the results section. HEPATITIS B SURFACE Routine 02/19/2016 11:43 AM R esults for this ANTIGEN FRACTIONATING STILL OPERATOR procedure are i n the results section. documented in this encounter Results Hepatitis C antibody (02/19/2016 11:43 AM FRACTIONATING STILL OPERATOR) Analysis Performed At Patho logist Time Signature Hepatitis C Negative Negative 02/20/2016 [facility] Antibody 9:17 AM FRACTIONATING STILL OPERATOR [facility] Specimen Anatomical Collection Method / Collection Time Recei nas Time (Source) Location / Volume Laterality Blood specimen Venipuncture / 02/19/2016 11:43 016 (specimen) Unknown AM FRACTIONATING STILL OPERATOR 9:31 PM FRACTIONATING STILL OPERATOR Yu Pritchett MD LAB - BLOOD ORDERABLES Performing Organization Address City/[facility] [place] [address] [address] [facility] Treponema Abs w Reflex to RPR and Titer (02/19/2016 11:43 AM FRACTIONATING STILL OPERATOR) Patholo gist Method Time Signature Syphilis Non-Reacti Non-Reacti 02/20/2016 [facility] Screen [place] ve ve 9:44 AM FRACTIONATING STILL OPERATOR [facility] Specimen Anatomical Collection Method / Collection Time Recei nas Time (Source) Location / Volume Laterality Blood specimen Venipuncture / 02/19/2016 11:43 016 (specimen) Unknown AM FRACTIONATING STILL OPERATOR 9:31 PM FRACTIONATING STILL OPERATOR Yu Pritchett MD LAB - BLOOD ORDERABLES Performing Organization Address City/State/ZIP Code Phon e Number [place] [address] [phone] [address] [facility] Hepatitis B surface antigen (02/19/2016 11:43 AM FRACTIONATING STILL OPERATOR) Analysis Performed At Patho logist Time Signature Hepatitis B Negative Negative 02/20/2016 [facility] Surface 9:17 AM FRACTIONATING STILL OPERATOR [facility] Specimen Anatomical Collection Method / Collection Time Recei nas Time (Source) Location / Volume Laterality Blood specimen Venipuncture / 02/19/2016 11:43 12 016 (specimen) Unknown AM FRACTIONATING STILL OPERATOR 9:31 PM FRACTIONATING STILL OPERATOR Yu Pritchett MD LAB - BLOOD ORDERABLES Performing Organization Address City/[facility]/ZIP Code Phon e Number [facility] [place] [address] [phone] [address] [facility] HIV Antigen Antibody Combo (02/19/2016 11:43 AM FRACTIONATING STILL OPERATOR) Analysis Performed At Patho logist Time Signature HIV Antigen Negative Negative 02/19/2016 [facility] Antibody Combo 11:18 PM FRACTIONATING STILL OPERATOR [facility] Specimen Anatomical Collection Method / Collection Time Recei nas Time (Source) Location / Volume Laterality Blood specimen Venipuncture / 02/19/2016 11:43 12 016 (specimen) Unknown AM FRACTIONATING STILL OPERATOR 9:31 PM FRACTIONATING STILL OPERATOR Yu Pritchett MD LAB - BLOOD ORDERABLES Performing Organization Address City/[facility]/ZIP [facility] [place] [address] [address] [facility] documented in this encounter Visit Diagnoses Diagnosis Screening examination for venereal disea se History of chlamydia Personal history of other infectious and parasitic disease documented in this encounter Additional Health Concerns Infection Onset Date Last Indicated Resolved Time Rule Out COVID-19 12/17/2019 12/17/2019 12/18/2019 6: 16 PM CDT documented as of this encounter Care Teams Armored Transport Service Manager Relationship Specialty Start Date End Date No Ref-Primary, Physician PCP - General 02/23/14 Inga Ibarra DO Assigned OBGYN Provider 01/06/20 06/09/20 [address] [place] [id number] Dottie Lucas MD Assigned OBGYN Provider 06/10/20 06/16/20 [address] [place] [id number] Elva Ramos APRN CNM Assigned OBGYN Provider 07/01/20 11/10/20 [address] [place] [id number] Inga Ibarra DO Assigned OBGYN Provider 06/17/20 06/30/20 [address] [place] [id number] documented as of this encounter
--- OUTSIDE RECORDS SUMMARY | 2021-10-01 16:51 | XMS_ITS | Encounter Summary ---
:1995 Author Organization [facility] Address [address] [place] [address] Care Team Providers Name Role Phone No Ref-Primary Primary Care Provider Olga Ibarra DO Unavailable Tray Lucas MD Unavailable Deandre Ramos APRN Unavailable Olga Ibarra DO Unavailable Reason for Visit Reason Comments Other Encounter Details Date Type Department Care Team Description 07/01/2016 Communication - [facility] Chantal Bolivar [facility] Hayden Guzmán MD [address] [facility] [address] [place] [address] [facility] [address] [facility], [phone] [place] [id number] Social History Tobacco Use Types Packs/Day Years [...] documented as of this encounter Care Teams Wool Shearing Supervisor Relationship Specialty Start Date End Date No Ref-Primary, Physician PCP - General 02/23/14 sInga DO Assigned OBGYN Provider 01/06/20 06/09/20 [address] [place] [id number] Dottie Lucas MD Assigned OBGYN Provider 06/10/20 06/16/20 [address] [place] [id number] Elva Ramos APRN CNM Assigned OBGYN Provider 07/01/20 11/10/[address] [address] [place] [id number] Inga Ibarra DO Assigned OBGYN Provider 06/17/20 06/30/20 [address] [place] [id number] documented as of this encounter
--- OUTSIDE RECORDS SUMMARY | 2021-10-01 16:51 | XMS_ITS | Encounter Summary ---
:1995 Author Organization [facility] Address [address] [place] [address] Care Team Providers Name Role Phone No Ref-Primary Primary Care Provider Reason for Visit Reason Comments Anxiety having increased anxiety ton ight with chest pain Chest Pain Encounter Details Date Type Department Care Team Description 06/11/2017 Emergency [facility] Jefferson Mancilla MD Panic attack [facility] Emergency Dept [facility] [address] [place] [address] [facility] [phone] [place] [address] (Wo rk) Social History Tobacco Use Types Packs/Day Years Used Date Never Smoker Smokeless Tobacco: Never Used Alcohol Use Standard Drinks/Week Comments No 0 (1 standard drink = 0.6 oz pure alcoho l) Sex Assigned at Date Recorded Female 10/01/2020 10:47 AM CDT documented as of this encounter Last Filed Vital Signs Vital Sign Reading Time Taken Comments Blood Pressure 110/66 06/11/2017 12:09 AM CDT Pulse - - Temperature 36.9 ??C (98.4 ??F) 06/11/2017 12:09 AM CDT Respiratory Rate 16 06/11/2017 12:09 AM CDT Oxygen Saturation 99% 06/11/2017 12:09 AM CDT Inhaled Oxygen Concentration - - Weight 59.9 kg (132 lb) 06/11/2017 12:09 AM CDT Height 157.5 cm (5' 2) 06/11/2017 12:09 AM CDT Body Mass Index 24.14 06/11/2017 12:09 AM CDT documented in this encounter Discharge Instructions Discharge InstructionsJefferson Mancilla MD - 06/11/2017 1:00 AM CDT Images from the original note were not included. Anxiety??Reaction Anxiety is the feeling we all get when we think something bad might happen. It is a normal response to stress and usually causes only a mild reaction. When anxiety becomes more severe, it can??interfere with daily life. In some cases, you may not even be aware of what it is you???re anxious about. There may also be a genetic link or it may be a learned behavior in the home. Both psychological and physical triggers cause stress reaction. It's often a response to fear or emotional stress, real or imagined. This stress may come from home, family, work, or social relationships. During an anxiety reaction, you may feel: ?? Helpless ?? Nervous ?? Depressed ?? Irritable Your body may show signs of anxiety in many ways. You may experience: ?? Dry mouth ?? Shakiness ?? Dizziness ?? Weakness ?? Trouble breathing ?? Breathing fast (hyperventilating) ?? Chest pressure ?? Sweating ?? Headache ?? Nausea ?? Diarrhea ?? Tiredness ?? Inability to sleep ?? Sexual problems Home care ?? Try to locate the sources of stress in your life. They may not be obvious. These may include: ?? Daily hassles of life (traffic jams, missed appointments, car troubles, etc.) ?? Major life changes, both good (new baby, job promotion) and bad (loss of job, loss of loved one) ?? Overload: feeling that you have too many responsibilities and can't take care of all of them at once ?? Feeling helpless, feeling that your problems are beyond what you???re able to solve ?? Notice how your body reacts to stress. Learn to listen to your body signals. This will help you take action before the stress becomes severe. ?? When you can, do something about the source of your stress. (Avoid hassles, limit the amount of change that happens in your life at one time and take a break when you feel overloaded). ?? Unfortunately, many stressful situations can't be avoided. It is necessary to learn how to bettermanage stress. There are many proven methods that will reduce your anxiety. These include simple things like exercise, good nutrition and adequate rest. Also, there are certain techniques that are helpful: ?? Relaxation ?? Breathing exercises ?? Visualization ?? Biofeedback ?? Meditation For more information about this, consult your doctor or go to a local bookstore and review the many books and tapes available on this subject. Follow-up care If you feel that your anxiety is not responding to self-help measures, contact your doctor or make an appointment with a counselor. You may need short-term psychological counseling and temporary medicine to help you manage stress. Call 911 Call your healthcare provider right away if any of these occur: ?? Trouble breathing ?? Confusion ?? Drowsiness or trouble wakening ?? Fainting or loss of consciousness ?? Rapid heart rate ?? Seizure ?? New chest pain that becomes more severe, lasts longer, or spreads into your shoulder, arm, neck, jaw, or back When to seek medical advice Call your healthcare provider right away if any of these occur: ?? Your symptoms get worse ?? Severe headache not relieved by rest and mild pain reliever Date Last Reviewed: 12/12/2014 ?? 4229-2496 [employer]. [address] [place] [address]. All rights reserved. This information is not intended as a substitute for professional medical care. Always follow your healthcare professional's instructions. documented in this encounter Medications at Time of Discharge Medication Sig Dispensed Refills Start Date End Date EPINEPHrine INJECT 1 PEN UTD FOR 3 06/01/2017 (EPIPEN/ADRENACLICK/OR ALLERGIC REACTION UTD ANY BX GENERIC EQUIV) 0.3 MG/0.3ML injection 2-pack documented as of this encounter ED Notes Cornell Zurita RN - 06/11/2017 12:34 AM CDT Mother at bedside. Cornell Zurita RN - 06/11/2017 12:13 AM CDT at bedside. Shannan Angeles - 06/11/2017 12:09 AM CDT Bed: ED16 Expected date: Expected time: Means of arrival: Comments: Triage-Anxiety Jefferson Mancilla MD - 06/10/2017 11:48 PM CDT History Chief Complaint: Anxiety HPI Ava Parker is a 21 year old female with a history of anxiety, PTSD, and depression who presents to the emergency department today for evaluation of anxiety. Tonight, the patient had an anxiety attack followed by constant, sharp midsternal chest pain. She has had similar symptoms in the past however this episode lasted 3 hours prompting ED visit. Here, patient her anxiety attacks have increased in frequency recently. She has had recent stressors including first year of college, 2 jobs (one job increases her PTSD), recent concussion, her father coming back into her life, and a friend of hers who helped her through challenging times is no longer in her life. She denies suicidal ideation but notes shedid have fleeting thoughts of harming herself during her anxiety attack. Patient admits to self harm(cutting and burning) with last episode occurring last year. No homicidal ideation. No hallucinations. Patient discontinued her psychiatric medications 2 years ago as she did not like the way they madeher feel. With regards to her chest pain, she notes her pain is aggravated with increased stress andanxiety. She was hyperventilating earlier but breathing has since improved. She had associated twitching sensation to her fingers and toes. No other concerns voiced at this time. Cardiac/PE/DVT Risk Factors: History of hypertension - Negative History of hyperlipidemia - Negative History of diabetes - Negative History of smoking - Negative Personal history of PE/DVT - Negative Family history of PE/DVT - Positive Family history of heart complications - Negative Recent travel - Negative Recent surgery - Negative Other immobilizations - Negative Cancer - Negative Allergies: No Known Drug Allergies Medications: The patient is currently on no regular medications. Past Medical History: Anxiety Conduct disorder Depression PTSD (post-traumatic stress disorder) Exercise induced asthma GERD Past Surgical History: Foot surgery Family History: Father: Diabetes, blood clot Social History: The patient was accompanied to the ED by mother. Smoking Status: Never smoker Smokeless Tobacco: Never used Alcohol Use: No Marital Status: Single [1] Review of Systems Psychiatric/Behavioral: Negative for hallucinations, self-injury and suicidal ideas. The patient is nervous/anxious. All other systems reviewed and are negative. Physical Exam First Vitals: BP: 110/66 Heart Rate: 82 Temp: 98.4 ??F (36.9 ??C) Resp: 16 Height: 157.5 cm (5' 2) Weight: 59.9 kg (132 lb) SpO2: 99 % Physical Exam SKIN: Warm, dry. HEMATOLOGIC/IMMUNOLOGIC/LYMPHATIC: No pallor. EYES: Conjunctivae normal. CARDIOVASCULAR: Regular rate and rhythm. No murmur. No rub. RESPIRATORY: No respiratory distress, breath sounds equal and normal. GASTROINTESTINAL: Soft, nontender abdomen. MUSCULOSKELETAL: Normal body habitus. NEUROLOGIC: Alert, conversant. PSYCHIATRIC: Anxious mood. Normal affect. No psychotic features. Normal eye contact. Emergency Department Course ECG: ECG taken at 0028, ECG read at 0049 Sinus bradycardia with sinus arrhythmia Otherwise normal ECG Rate 57 bpm. WV interval 128. QRS duration 86. QT/QTc 434/422. P-R-T axes 52 72 41. Interventions: 0029- Ativan 1 mg Oral Emergency Department Course: Nursing notes and vitals reviewed. I performed an exam of the patient as documented above. At 0105 the patient was rechecked and feels better I discussed the treatment plan with the patient. They expressed understanding of this plan and consented to discharge. Impression & Plan Medical Decision Making: Ava Parker is a 21 year old female who presents to the emergency department with what seems to be a panic attack. EKG was reassuring. She has no pulmonary embolism risk factors and is PERC negative. She found ativan quite helpful. Advised her to reestablish primary care for follow up on her mental health. Here she is not suicidal, homicidal, or psychotic. Diagnosis: ICD-10-CM 1. Panic attack F41.0 Disposition: Findings and plan explained to the Patient. Patient discharged home with instructions regarding supportive care, medications, and reasons to return. The importance of close follow-up was reviewed. Scribe Disclosure: YanethMoraima Anton, am serving as a scribe at 12:21 AM on 06/11/2017 to document services personally performed by Jefferson Mancilla MD, based on my observations and the provider's statements to me. 06/10/2017 EMERGENCY DEPARTMENT Jefferson Mancilla MD 06/11/17 0514 documented in this encounter Plan of Treatment Not on filedocumented as of this encounter Procedures Procedure Name Priority Date/Time Associated Diagnosis Comme nts EKG 12-LEAD, STAT 06/11/2017 12:28 AM Results for this TRACING ONLY CDT procedure are i n the results section. documented in this encounter Results EKG 12 lead (06/11/2017 12:28 AM CDT) [facility] gist Method Time Signature Interpretation ECG Click View RADIOLOGY Image link RESULTS to view waveform and result Specimen (Source) Anatomical Collection Method Collection Time Re ceived Time Location / / Volume Laterality 06/11/2017 12:28 AM CDT Jefferson Mancilla MD ECG ORDERABLES Performing Organization Address City/State/ZIP Code Phon e Number RADIOLOGY RESULTS documented in this encounter Visit Diagnoses Diagnosis Panic attack Panic disorder without agoraphobia documented in this encounter Administered Medications Inactive Administered Medications - up to 3 most recent administrations Medication Order MAR Action Action Date Dose Rate Site LORazepam (ATIVAN) tablet 1 mg Given 06/11/2017 12:29 AM CDT 1 mg 1 mg, Oral, ONCE, On Holli 06/11/17 at 0025, For 1 dose documented in this encounter Active and Recently Administered Medications Times are shown in CDT. Scheduled Medication Order 06/09/2017 06/10/2017 06/11/2017 LORazepam (ATIVAN) tablet 1 mg (COMPLETED) 0029 (Given - Provider: Cornell Zurita RN) 1 mg, Oral, ONCE, Holli 06/11/17 at 0025, For 1 dose documented in this encounter Care Teams Package Collector Relationship Specialty Start Date End Date No Ref-Primary, Physician PCP - General 02/23/14 documented as of this encounter
--- OUTSIDE RECORDS SUMMARY | 2021-10-01 16:51 | XMS_ITS | Encounter Summary ---
:1995 Author Organization [facility] Address [address] [place] [address] Care Team Providers Name Role Phone No Ref-Primary Primary Care Provider Olga Ibarra DO Unavailable Tray Lucas MD Unavailable Deandre Ramos APRN Unavailable Olga Ibarra DO Unavailable Reason for Visit Reason Comments Physical Discuss Control Encounter Details Date Type Department Care Team Description 08/20/2016 Office Visit - [facility] Vinay Koehler adult exam; [facility] Hayden Prabhakar MD Amenorrhea; [place] [address] Screening for chlamydial dis ease; [address] [facility] [address] [place] Screen for STD (sexually transmitted dis ease) [address] [place] [address] [place] [phone] (Work) [phone] Social History Tobacco Use Types Packs/Day Years [...] - Inhaled Oxygen Concentration - - Weight 59.1 kg (130 lb 4.8 oz) 08/20/2016 3:09 PM CDT Height 157.5 cm (5' 2) 08/20/2016 3:09 PM CDT Body Mass Index 23.83 08/20/2016 3:09 PM CDT Body Mass Index Percentile 73.43 % 08/20/2016 3:09 PM C DT Growth Chart: [facility] (Girls, 2-20 Years) documented in this encounter Progress Notes Vinay Koehler MD - 08/20/2016 3:00 PM CDT Assessment: Healthy female exam. 1. Well adult exam Meningococcal MCV4P 2. Amenorrhea , Urine 3. Screening for chlamydial disease 4. Screen for STD (sexually transmitted disease) Chlamydia trachomatis & Neisseria gonorrhoeae,Amplified Detection Plan: She is informed that urine test was negative. she desires to restart the control pill and I prescribed the same type that she had taken before and had tolerated without difficulty. She understands that she needs to have her menses occurred before she starts that and can start the first pill on the Thursday after the start of her menstrual flow unless it starts on Thursday and then she can start it the same day. Explained that she can have some breakthrough bleeding in the first several months but to call if any problems and to follow- up if any ongoing difficulties that did not settle down within the first 3 months. Also advised her to get blood pressure checked 6 weeks after she is on the pill. If she is doing well then she will need to choose an alternative physician for her primary care physician since Dr. Pritchett will not be available any further. She understands. I also explained that her tendency to have irregular menses when she is off of the pill will likely be the same when she stops the pill down the line. She is desired to have a screen for chlamydia and mention that after her exam was done and after she had given us a clean catch type of urine and so she is given the vaginal swab to obtain for the screen for chlamydia/gonorrhea. She had had previous screening for HIV and syphilis and did not feel that she wanted to do that today. Subjective: Ava Parker is a 20 y.o. female who presents for an annual exam. The patient is sexually active. The patient participates in regular exercise: yes. The patient reports that there is not domestic violence in her life. She notes last menstrual period was about 1 month ago and lasted 2 weeks and she states it was about 1 week late. She is expecting she should have her menstrual flow by now. Healthy Habits: Regular Exercise: Yes Sunscreen Use: No Healthy Diet: Yes Dental Visits Regularly: Yes Seat Belt: Yes Sexually active: Yes Self Breast Exam Monthly:Yes Hemoccults: No Flex Sig: No Colonoscopy: No Lipid Profile: Yes Glucose Screen: Yes Prevention of Osteoporosis: No Last Dexa: No Guns at Home: No Immunization History Administered Date(s) Administered ??? DTP 02/20/1998, 05/04/1998 ??? DTaP, historic 07/11/1998, 02/25/1999, 09/11/2003 ??? HPV Quadrivalent 11/13/2011, 01/20/2012, 06/08/2012 ??? Hep A, historic 12/07/2012, 09/13/2013 ??? Hep B, historic 1997, 02/20/1998, 06/01/1998 ??? HiB, historic 02/20/1998, 06/01/1998, 07/11/1998, 02/25/1999 ??? IPV 02/20/1998, 06/01/1998, 11/30/1998, 09/11/2003 ??? Influenza D1e1-31, 01/18/2008 ??? MMR 11/30/1998, 09/11/2003, 11/13/2011 ??? Meningococcal MCV4P 12/07/2012 ??? Tdap 10/09/2010 ??? Varicella 11/30/1998, 10/09/2010, 11/13/2011 Immunization status: up to date and documented, due today. No exam data present Gynecologic History Patient's last menstrual period was 07/25/2016. Contraception: none Last Pap: N/A. Results were: Not yet applicable. Last mammogram: N/A. Results were: Not applicable. OB History No data available Current Outpatient Prescriptions Medication Sig Dispense Refill ??? EPINEPHrine (EPIPEN 2-ISABELLE) 0.3 mg/0.3 mL atIn TAKE DIRECTED FOR ALLERGIC REACTION 3 Pre-filled Pen Syringe 4 ??? desogestrel-ethinyl estradiol (APRI) 0.15-0.03 mg per tablet Take 1 tablet by mouth daily. 3 Package 4 No current facility-administered medications for this visit. Past Medical History: Diagnosis Date ??? Boxer's fracture 04/27/15 Left hand. Punched a wall at school. Past Surgical History: Procedure Laterality Date ??? [place] OPEN TREATMENT TARSOMETATARSAL JOINT DISLOCATION Description: Open Treatment Of Tarsometatarsal Dislocation; Proc Date: 06/09/2011; Comments: ORIFof Lisfranc joint, intercuneiform arthrotomy with synovectomy. Adria Butterfield DPM, [facility], [facility] [place]. [place] seed; Cat hair std allergenic ext; Cockroach; House dust; and Peanut Family History Problem Relation Age of Onset ??? No Medical Problems Mother ??? Diabetes Father ??? Heart disease Father ??? Hypertension Father ??? Cancer Maternal Aunt ??? Vision loss Maternal Aunt Social History Social History ??? Marital status: Single Spouse name: N/A ??? Number of children: N/A ??? Years of education: N/A Occupational History ??? Not on file. Social History Main Topics ??? Smoking status: Never Smoker ??? Smokeless tobacco: Never Used ??? Alcohol use No ??? Drug use: Not on file ??? Sexual activity: Yes control/ protection: Condom Other Topics Concern ??? Not on file Social History Narrative UTD on immunizations. Review of Systems Review of Systems She notes that she has had some tenderness in the breast prior to her menses in the last several cycles. Because her mom had breast cancer she was concerned. Because Objective: Vitals: 08/20/16 1509 BP: 90/60 Pulse: 60 Temp: 98 ??F (36.7 ??C) Weight: 130 lb 4.8 oz (59.1 kg) Height: 5' 2 (1.575 m) Body mass index is 23.83 kg/(m^2). Physical Physical Exam Head normocephalic. External ears and TMs normal. Eyes unremarkable. Nose and oropharynx negative. Neck supple without adenopathy or thyromegaly. Lungs clear. Heart regular rate and rhythm without murmur. Breasts show no masses or discharge, she has some mild tenderness in the outer upper quadrant of each breast. Abdomen shows no masses tenderness or hepatosplenomegaly. Pelvic exam shows normal external genitalia BUS and vagina and cervix, bimanual exam negative and rectovaginal exam confirms. No enlargement of the uterus is noted. No adnexal masses are noted. Extremities show no edema. Good peripheral pulses. documented in this encounter Plan of Treatment Not on filedocumented as of this encounter Visit Diagnoses Diagnosis Well adult exam Routine general medical examination at a health care facility Amenorrhea Absence of menstruation Screening for chlamydial disease Special screening examination for unspec ified chlamydial disease Screen for STD (sexually transmitted dis ease) Screening examination for venereal disea se documented in this encounter Additional Health Concerns Infection Onset Date Last Indicated Resolved Time Rule Out COVID-19 12/17/2019 12/17/2019 12/18/2019 6: 16 PM CDT documented as of this encounter Care Teams Machine Iii Coremaker Relationship Specialty Start Date End Date No Ref-Primary, Physician PCP - General 02/23/14 sInga DO Assigned OBGYN Provider 01/06/20 06/09/20 [address] [place] [address] Dottie Lucas MD Assigned OBGYN Provider 06/10/20 06/16/20 [address] [place] [address] Elva Ramos APRN CNM Assigned OBGYN Provider 07/01/20 11/10/20 [address] [place] [address] Masters, Inga Espinoza, DO [facility] OBGYN Provider 06/17/20 06/30/20 [address] [place] [address] documented as of this encounter
--- OUTSIDE RECORDS SUMMARY | 2021-10-01 16:51 | XMS_ITS | Encounter Summary ---
:1995 Author Organization [facility] Address [address] [place] [address] Care Team Providers Name Role Phone No Ref-Primary Primary Care Provider Olga Ibarra DO Unavailable Tray Lucas MD Unavailable Deandre Ramos APRN Unavailable Olga Ibarra DO Unavailable Encounter Details Date Type Department Care Team Description 07/02/2016 Communication - [facility] E-VISITS Provider, Sd jen Social History Tobacco Use Types Packs/Day [...] documented as of this encounter Care Teams Etymology Teacher Relationship Specialty Start Date End Date No Ref-Primary, Physician PCP - General 02/23/14 Inga Ibarra DO Assigned OBGYN Provider 01/06/20 06/09/[address] [place], [place] [address] Dottie Lucas MD Assigned OBGYN Provider 06/10/20 06/16/[address] [place], [place] [id number] Elva Ramos APRN CNM Assigned OBGYN Provider 07/01/20 11/10/[address] [place], [place] [id number] Inga Ibarra DO Assigned OBGYN Provider 06/17/20 06/30/[address] [place], [place] [address] documented as of this encounter
--- OUTSIDE RECORDS SUMMARY | 2021-10-01 16:51 | XMS_ITS | Encounter Summary ---
:1995 Author Organization [facility] Address [address] [place] [address] Care Team Providers Name Role Phone No Ref-Primary Primary Care Provider Reason for Visit Reason Comments Abdominal Cramping Encounter Details Date Type Department Care Team Description 07/21/2018 Emergency [facility] Milton Rosas Cla, MD Pain of [facility] Emergency EMERGENCY PHYSICIANS affecting , Dept OA antepartum [address] [place] [address] [place] [address] [phone] Social History Tobacco Use Types Packs/Day Years Used Date Never Smoker Smokeless Tobacco: Never Used Alcohol Use Standard Drinks/Week Comments No 0 (1 standard drink = 0.6 oz pure alcoho l) Sex Assigned at Date Recorded Female 10/01/2020 10:47 AM CDT documented as of this encounter Last Filed Vital Signs Vital Sign Reading Time Taken Comments Blood Pressure 108/49 07/21/2018 9:53 AM CDT Pulse 66 07/21/2018 9:53 AM CDT Temperature 36.8 ??C (98.2 ??F) 07/21/2018 9:53 AM CDT Respiratory Rate 20 07/21/2018 9:53 AM CDT Oxygen Saturation 98% 07/21/2018 9:53 AM CDT Inhaled Oxygen Concentration - - Weight 74.8 kg (165 lb) 07/21/2018 9:53 AM CDT Height 157.5 cm (5' 2) 07/21/2018 9:53 AM CDT Body Mass Index 30.18 07/21/2018 9:53 AM CDT documented in this encounter Discharge Instructions AttachmentsThe following attachments cannot be sent through Care Everywhere. Pelvic Pain In : Unclear (2-3 Trimester) (Ukrainian)documented in this encounter Medications at Time of Discharge Medication Sig Dispensed Refills Start Date End Date EPINEPHrine INJECT 1 PEN UTD 3 06/01/2017 (EPIPEN/ADRENACLICK/OR FOR ALLERGIC ANY BX GENERIC EQUIV) 0.3 REACTION UTD MG/0.3ML injection 2-pack Prenat w/o Take 1 tablet by 90 capsule 3 07/06/2018 B-[id number]-Yhiafyg-FA-DHA mouth daily (PNV-DHA) 27-0.6-0.4-300 MG CAPSIndications: acetaminophen 500 MG CAPS Take 2 capsules by 60 capsule 0 10/31/2018 mouth every 8 hours as needed For aches, pain, fever documented as of this encounter ED Notes Fadumo Moore RN - 07/21/2018 9:55 AM CDT Pt is 17 weeks Fadumo Moore RN - 07/21/2018 9:53 AM CDT Abdominal cramping starting at 0100. Denies vaginal bleeding. Milton Rosas MD - 07/21/2018 9:49 AM CDT History Chief Complaint: Abdominal Cramping NAOMI Parker is a 17-weeks 22 year old female ( A0) who presents to the emergency department for evaluation of abdominal pain. The patient reports she has experienced constant right lower quadrant abdominal pain since around 0200 last night, worse with standing, movement of her torso, or urination, described as a pressure/heaviness. It is not worsened by palpation but does radiate to laterally as well. She indicates that the right side of her abdomen feels firmer than the left. She further reports decreased appetite; she last ate a small amount around 0800 without any change in her symptoms. The patient denies any fever, bowel movement symptoms, vaginal bleeding, vaginal discharge, chest pain, upper abdominal pain, urinary symptoms. She also denies any history of similar pain, and she has not been seen for these symptoms yet. She follows with Dr. Ibarra of OB for her . Nofever. No injury or fall. She denies other symptoms. Allergies: Peanut (Diagnostic) Carter Oil Cat Hair Extract Cockroach Dust Mite Extract Medications: Zantac Past Medical History: Anxiety Conduct disorder Depression GERD PTSD Uncomplicated asthma Migraine Past Surgical History: Foot surgery Family History: Breast cancer HLD HTN Diabetes Social History: Presents with mother. Never smoker. Negative for alcohol use. Marital Status: Single [1] Review of Systems Constitutional: Positive for appetite change. Negative for fever. Cardiovascular: Negative for chest pain. Gastrointestinal: Positive for abdominal pain. Negative for constipation and diarrhea. Genitourinary: Negative for difficulty urinating, dysuria, frequency, hematuria, urgency, vaginal bleeding and vaginal discharge. All other systems reviewed and are negative. Physical Exam Patient Vitals for the past 24 hrs: BP Temp Temp src Pulse Resp SpO2 Height Weight 07/21/18 0953 108/49 98.2 ??F (36.8 ??C) Oral 66 20 98 % 1.575 m (5' 2) 74.8 kg (165 lb) Physical Exam General: Nontoxic. Appears mildly uncomfortable. Head: Scalp, face, and head appear normal Eyes: Pupils are equal, round, and reactive to light Conjunctivae non-injected and sclerae white ENT: The external nose is normal Pinnae are normal The oropharynx is normal, mucous membranes moist Uvula is in the midline Neck: Trachea is in the midline CV: Regular rate and rhythm Normal S1/S2, no S3/S4 No murmur or rub Resp: Lungs are clear and equal bilaterally There is no tachypnea No increased work of breathing No rales, wheezing, or rhonchi GI: Abdomen is soft, no rigidity or guarding No distension, or mass Gravid uterus palpated 2 cm below the umbilicus. Diffuse lower abdominal tenderness to palpation greatest in the right lower quadrant and suprapubic regions. No rebound tenderness MS: Normal muscular tone Symmetric motor strength No lower extremity edema Skin: No rash or acute skin lesions noted Neuro: Awake and alert Speech is normal and fluent Moves all extremities spontaneously Psych: Normal affect. Appropriate interactions. Emergency Department Course Imaging: Radiographic findings were communicated with the patient who voiced understanding of the findings. US OB >14 Weeks Complete w Transvaginal: 1. Single live intrauterine of 17 weeks 1 day gestation by current ultrasound measurement. growth is 2 days less advanced than what is expected from the reported previously established due date. 2. 1.5 cm right ovarian cyst. As per radiology. Laboratory: CBC: WBC: 8.8, HGB: 11.2 (L), PLT: 211 CMP: Albumin 3.0 (L), Protein Total 6.7 (L), o/w WNL (Creatinine: 0.59) CRP: 6.7 Lipase: 115 UA with micro: Albumin 10, Leukocyte Esterase Moderate, Squamous Epithelial 3 (H), Mucous Present, o/w negative Emergency Department Course: Nursing notes and vitals reviewed. 1008 I performed an exam of the patient as documented above. IV inserted. Medicine administered as documented above. Blood drawn. This was sent to the lab for further testing, results above. The patient was sent for a US OB while in the emergency department, findings above. The patient provided a urine sample here in the emergency department. This was sent for laboratory testing, findings above. 1210 I rechecked the patient and discussed the results of her workup thus far. [address] Cooper, OB, regarding the patient. 1318 I rechecked and updated the patient. Findings and plan explained to the Patient. Patient discharged home with instructions regarding supportive care, medications, and reasons to return. The importance of close follow-up was reviewed. The patient was prescribed Tylenol. I personally reviewed the laboratory results with the Patient and answered all related questions prior to discharge. Impression & Plan Medical Decision Making: Ava Parker is a 22 year old female who presents with lower abdominal pain in the setting of 17 week . No vaginal bleeding or loss of vaginal fluid. has been reportedly normal up to this point. On my evaluation, the patient is well-appearing. She has moderate tenderness across the lower abdomen but no evidence of peritonitis or acute surgical emergency. A broad differential diagnosis is considered, including appendicitis, round ligament pain, abruption, complication related to . She has no nausea, vomiting, diarrhea to suggest infectious etiology such as gastroenteritis or colitis. Symptoms are not consistent with a bowel obstruction. She is otherwise well- appearing. Workup in the ED is unremarkable. Laboratory studies without concerning findingsl. UA negative for pyuria or hematuria. US was obtained and reveals normal heart tones and movement. No other acute pathology or free abdominal fluid is identified. Small right ovarian cyst is unlikely to be the cause ofher pain. CRP is negative. No leukocytosis to suggest an acute inflammatory or infectious process such as appendicitis. Given the findings, I discussed the case with OB, who felt the patient was likelyhaving round ligament pain. I had a discussion about this with the patient. I was clear that we had n ot definitively ruled out early appendicitis and that if she were to develop worsening symptoms, fever, severe vomiting, or diarrhea, she should return immediately to the hospital for further monitoring, evaluation, and treatment. I urged her to follow up closely with her OB in 24-48 hours for recheck. Patient was agreeable to plan of care and was discharged in stable condition. Diagnosis: ICD-10-CM 1. Pain of round ligament affecting , antepartum O26.899 R10.2 Disposition: discharged to home Discharge Medications: Medication List Started acetaminophen 500 MG Caps 2 capsules, Oral, EVERY 8 HOURS PRN, For aches, pain, fever Barry Wolfe, bishop serving as a scribe on 07/21/2018 at 10:01 AM to personally document services performed by Milton Rosas MD based on my observations and the provider's statements to me. Barry Johnson 07/21/2018 EMERGENCY DEPARTMENT Milton Rosas MD 07/22/18 0957 documented in this encounter Miscellaneous Notes Result Encounter Note - Randy Patricio RN - 07/21/2018 1:26 PM CDT Emergency Dept/Urgent Care discharge antibiotic (if prescribed): None No changes in treatment per Urine culture protocol. Result Encounter Note - Randy Patricio RN - 07/21/2018 1:26 PM CDT Final urine culture report is NEGATIVE per [facility] Result protocol. If NEGATIVE result, no change in treatment, per [facility] Result protocol. documented in this encounter Plan of Treatment Not on filedocumented as of this encounter Procedures Procedure Name Priority Date/Time Associated Comments Diagnosis US OB >14 WEEKS STAT 07/21/2018 11:38 Results for this TRANSVAGINAL AM CDT procedure are i n the results section. CBC WITH PLATELETS & STAT 07/21/2018 10:17 Res ults for this DIFFERENTIAL AM CDT procedure are i n the results section. LIPASE STAT 07/21/2018 10:17 Results for this AM CDT procedure are i n the results section. CRP INFLAMMATION STAT 07/21/2018 10:17 Results for this AM CDT procedure are i n the results section. COMPREHENSIVE STAT 07/21/2018 10:17 Results fo r this METABOLIC PANEL AM CDT procedure ar e in the results section. UA MACROSCOPIC WITH STAT 07/21/2018 9:56 Resu lts for this REFLEX TO MICRO AND AM CDT procedur e are in CULTURE the results section. URINE CULTURE Routine 07/21/2018 9:56 Pain of round Results f or this AM CDT ligament affecting procedure are in , the results antepartum section. documented in this encounter Results US OB > 14 Weeks Complete w Transvaginal (07/21/2018 11:38 AM CDT) Anatomical Region Laterality Modality Abdomen/Pelvis Ultrasound Specimen (Source) Anatomical Location Collection Method / Collectio n Time Received Time / Laterality Volume Impressions 07/21/2018 4:30 PM CDT IMPRESSION: ?? 1. Single live intrauterine of 17 weeks 1 day gestation by current ultrasound measurement. gr owth is 2 days less advanced than what is expected from the reported previously established due date. 2. 1.5 cm right ovarian cyst. MITCH CARRANZA MD Narrative 07/21/2018 4:30 PM CDT ULTRASOUND OBSTETRIC GREATER THAN FOURTEEN WEEKS TRANSVAGINAL IMAGING 07/21/2018 11:38 AM HISTORY: Right lower quadrant pain, preg nant at 17 weeks. COMPARISON: None. FINDINGS: Presentation: Variable. Cardiac activity: 149 bpm. Regular rhyth m. Movement: Unremarkable. Placenta: Posterior. No evidence for siva centa previa. Cervical length: 3.2. cm. Amniotic fluid: Normal visually. Other findings: Four-chamber heart, stom ach, bladder, and kidneys are visualized. A complete anatomy scan was not performe d. Measured parameters: ? BPD: ??3.7 cm ?Age: 17 wee ks 2 days. ? HC: ?13.0 cm ?Age: 16 weeks 5 days. ? AC: ??11.8 cm ?Age: 17 wee ks 4 days. ? FL: ?? 2.3 cm ?Age: 17 wee ks 0 days. Gestational age by current ultrasound me asurement: 17 weeks 1 day, corresponding to an BONNIE of 12/28/2018. Gestational age based on the reported pr eviously established due date: 17 weeks 3 days, corresponding to an BONNIE of 12/26/2018. Estimated weight: 184 grams, corre sponding to the 47th percentile based on the reported previou sly established due date. Incidental note made of 1.5 cm right ova aashish cyst. Procedure Note Mitch Carranza MD - 07/21/2018Formattin g of this note might be different from the original. ULTRASOUND OBSTETRIC GREATER THAN FOURTE EN WEEKS TRANSVAGINAL IMAGING 07/21/2018 11:38 AM HISTORY: Right lower quadrant pain, preg nant at 17 weeks. COMPARISON: None. FINDINGS: Presentation: Variable. Cardiac activity: 149 bpm. Regular rhyth m. Movement: Unremarkable. Placenta: Posterior. No evidence for siva centa previa. Cervical length: 3.2. cm. Amniotic fluid: Normal visually. Other findings: Four-chamber heart, stom ach, bladder, and kidneys are visualized. A complete anatomy scan was not performe d. Measured parameters: BPD: 3.7 cm Age: 17 weeks 2 d ays. HC: 13.0 cm Age: 16 weeks 5 days. AC: 11.8 cm Age: 17 weeks 4 d ays. FL: 2.3 cm Age: 17 weeks 0 d ays. Gestational age by current ultrasound me asurement: 17 weeks 1 day, corresponding to an BONNIE of 12/28/2018. Gestational age based on the reported pr eviously established due date: 17 weeks 3 days, corresponding to an BONNIE of 12/26/2018. Estimated weight: 184 grams, corre sponding to the 47th percentile based on the reported previou sly established due date. Incidental note made of 1.5 cm right ova aashish cyst. IMPRESSION: 1. Single live intrauterine of 17 weeks 1 day gestation by current ultrasound measurement. gr owth is 2 days less advanced than what is expected from the reported previously established due date. 2. 1.5 cm right ovarian cyst. MITCH CARRANZA MD Milton Rosas MD IMG US ORDERABLES CRP inflammation (07/21/2018 10:17 AM CDT) athologist Signature CRP Inflammation 6.7 0.0 - 8.0 07/21/2018 [place] mg/L 11:10 AM CDT [facility] Specimen Anatomical Collection Method Collection Time Receive d Time (Source) Location / / Volume Laterality Blood specimen 07/21/2018 10:17 9 (specimen) AM CDT 10:29 AM CDT Milton Rosas MD LAB - BLOOD ORDERABLES Performing Organization Address City/State/ZIP Code Phon e Number M [facility] [address] [place] [address] [facility] [address] [place] [address], U [phone] Lipase (07/21/2018 10:17 AM CDT) P athologist Signature Lipase 115 73 - 393 07/21/2018 [place] U/L 11:10 AM CDT [facility] Specimen Anatomical Collection Method Collection Time Receive d Time (Source) Location / / Volume Laterality Blood specimen 07/21/2018 10:17 9 (specimen) AM CDT 10:29 AM CDT Milton Rosas MD LAB - BLOOD ORDERABLES Performing Organization Address City/State/ZIP Code Phon e Number M [facility] [address] [place] [address] [facility] [address] [address], U [phone] (ABNORMAL) Comprehensive metabolic panel (07/21/2018 10:17 AM [facility]) athologist Signature Sodium 140 133 - 144 07/21/2018 [place] mmol/L 10:59 AM [facility] Potassium 3.6 3.4 - 5.3 07/21/2018 [place] mmol/L 10:59 AM [facility] Chloride 107 94 - 109 07/21/2018 [place] mmol/L 10:59 AM [facility] Carbon Dioxide 23 20 - 32 07/21/2018 [place] mmol/L 11:08 AM [facility] Anion Gap 10 3 - 14 07/21/2018 [place] mmol/L 11:08 AM [facility] Glucose 87 70 - 99 07/21/2018 [place] mg/dL 11:08 AM [facility] Urea Nitrogen 8 7 - 30 07/21/2018 [place] mg/dL 11:08 AM [facility] Creatinine 0.59 0.52 - 07/21/2018 [place] 1.04 mg/dL 11:08 AM [facility] GFR Estimate >90 >60 07/21/2018 [place] mL/min/{1. 11:08 AM [facility] 73_m2} [facility] Comment: Non GFR Calc Starting 03/02/2018, serum creatinine ba sed estimated GFR (eGFR) will be calculated using the Chronic Kidney Dise [facility] Epidemiology Collaboration (CKD-EPI) equation. GFR Estimate If >90 >60 mL/min/{1.73_m2} 07/21/2018 11:08 AM [facility] Comment: GFR Calc Starting 03/02/2018, serum creatinine ba sed estimated GFR (eGFR) will be calculated using the Chronic Kidney Dise [facility] Epidemiology Collaboration (CKD-EPI) equation. Calcium 9.0 8.5 - 10.1 07/21/2018 11:08 AM [facility] mg/dL [facility] Bilirubin Total 0.2 0.2 - 1.3 mg/dL 07/21/2018 11:[address] [facility] Albumin 3.0 (L) 3.4 - 5.0 g/dL 07/21/2018 11:10 AM [facility] Protein Total 6.7 (L) 6.8 - 8.8 g/dL 07/21/2018 11:10 AM [facility] Alkaline Phosphatase 63 40 - 150 U/L 07/21/2018 11:[address] [facility] ALT 22 0 - 50 U/L 07/21/2018 11:[address] [facility] AST 13 0 - 45 U/L 07/21/2018 11:[address] [facility] Specimen Anatomical Collection Method Collection Time Receive d Time (Source) Location / / Volume Laterality Blood specimen 07/21/2018 10:17 9 (specimen) AM CDT 10:29 AM CDT Milton Rosas MD LAB - BLOOD ORDERABLES Performing Organization Address City/State/ZIP Code Phon e Number M [facility] [address] [address] [facility] [address] [place] [address], U [phone] (ABNORMAL) CBC with platelets differential (07/21/2018 10:17 AM CDT) [facility] Method Time Signature WBC 8.8 4.0 - 07/21/2018 [place] 11.0 10:[address] [facility] 10e9/L [facility] RBC Count 3.84 3.8 - 5.2 07/21/2018 [place] 10e12/L 10:37 AM [facility] Hemoglobin 11.2 (L) 11.7 - 07/21/2018 [facility] 15.7 g/dL 10:37 AM [facility] Hematocrit 32.5 (L) 35.0 - 07/21/2018 [facility] 47.0 % 10:37 AM [facility] MCV 85 78 - 100 07/21/2018 [place] fl 10:37 AM [facility] MCH 29.2 26.5 - 07/21/2018 [facility] 33.0 pg 10:37 AM [facility] MCHC 34.5 31.5 - 07/21/2018 [facility] 36.5 g/dL 10:37 AM [facility] RDW 13.1 10.0 - 07/21/2018 [facility] 15.0 % 10:37 AM [facility] Platelet Count 211 150 - 450 07/21/2018 [facility] 10e9/L 10:37 AM [facility] Diff Method Automated 07/21/2018 [facility] Method 10:37 AM [facility] % Neutrophils 71.3 % 07/21/2018 [facility] 10:37 AM [facility] % Lymphocytes 19.3 % 07/21/2018 [facility] 10:37 AM [facility] % Monocytes 7.7 % 07/21/2018 [facility] 10:37 AM [facility] % Eosinophils 0.8 % 07/21/2018 [facility] 10:37 AM [facility] % Basophils 0.2 % 07/21/2018 [facility] 10:37 AM [facility] % Immature 0.7 % 07/21/2018 [facility] Granulocytes 10:37 AM [facility] Nucleated RBCs 0 0 /100 07/21/2018 [facility] 10:37 AM [facility] Absolute 6.2 1.6 - 8.3 07/21/2018 [facility] Neutrophil 10e9/L 10:37 AM [facility] Absolute 1.7 0.8 - 5.3 07/21/2018 [facility] Lymphocytes 10e9/L 10:37 AM [facility] Absolute 0.7 0.0 - 1.3 07/21/2018 [facility] Monocytes 10e9/L 10:37 AM [facility] Absolute 0.1 0.0 - 0.7 07/21/2018 [facility] Eosinophils 10e9/L 10:37 AM [facility] Absolute 0.0 0.0 - 0.2 07/21/2018 [facility] Basophils 10e9/L 10:37 AM [facility] Abs Immature 0.1 0 - 0.4 07/21/2018 [facility] Granulocytes 10e9/L 10:37 AM [facility] Absolute 0.0 07/21/2018 [facility] Nucleated RBC 10:37 AM [facility] Specimen Anatomical Collection Method Collection Time Receive d Time (Source) Location / / Volume Laterality Blood specimen 07/21/2018 10:17 9 (specimen) AM CDT 10:29 AM CDT Milton Rosas MD LAB - BLOOD ORDERABLES Performing Organization Address City/[facility]/ZIP Code Phon e Number M [facility] [address] [place] [address] [phone] [facility] [address] [place] [address], U [phone] Urine Culture Aerobic Bacterial (07/21/2018 9:56 AM CDT) Component Value Ref Test Analysis Performed At Patholo gist Range Method Time Signature Specimen Midstream Urine INFECTIOUS Description [facility] Special Specimen received 07/21/2018 INFECTIOUS Requests in preservative 3:46 PM CDT [facility] Culture Micro 10,000 to 50,000 colonies/mL 019 INFECTIOUS mixed urogenital nany 4:49 PM CDT [facility] Susceptibility testing not routinely done DIAGNOSTIC LABORATORY Specimen (Source) Anatomical Collection Method Collection Time Re ceived Time Location / / Volume Laterality Examination of 07/21/2018 9:56 9 midstream urine AM CDT 12:27 PM CDT specimen (procedure) Milton Rosas MD LAB - MICRO GENERAL ORDERABL ES Performing Organization Address City/[facility]/ZIP Code Phon e Number INFECTIOUS DISEASES [address] [place] [address] DIAGNOSTIC LABORATORY, [facility] INFECTIOUS DISEASES [address] [place] [address], [place] DI[facility] (ABNORMAL) UA reflex to Microscopic and Culture (07/21/2018 9:56 AM CDT) Patholo gist Method Time Signature Color Urine Yellow 07/21/2018 [facility] 11:56 AM [facility] Appearance Urine Clear 07/21/2018 [place] 11:56 AM [facility] Glucose Urine Negative NEG^Negat 07/21/2018 [place]anne mg/dL 11:56 AM [facility] Bilirubin Urine Negative NEG^Negat 07/21/2018 [place] 11:56 AM [facility] Ketones Urine Negative NEG^Negat 07/21/2018 [place]anne mg/dL 11:56 AM [facility] Specific [place] 1.022 1.003 - 07/21/2018 [place] Urine 1.035 11:56 AM [facility] Blood Urine Negative NEG^Negat 07/21/2018 [place] 11:56 AM [facility] pH Urine 6.5 5.0 - 7.0 07/21/2018 [place] pH 11:56 AM [facility] Protein Albumin 10 (A) NEG^Negat 07/21/2018 [place] Urine ro[place]anne mg/dL 11:56 AM [facility] Urobilinogen Normal 0.0 - 2.0 07/21/2018 [place] mg/dL mg/dL 11:56 AM [facility] Nitrite Urine Negative NEG^Negat 07/21/2018 [place] 11:56 AM [facility] Leukocyte Moderate (A) NEG^Negat 07/21/2018 [place] Esterase Urine rosanne 11:56 AM [facility] Source Midstream 07/21/2018 [place] Urine 10:30 AM [facility] RBC Urine <1 0 - 2 07/21/2018 [facility] /HPF 11:57 AM [facility] WBC Urine 1 0 - 5 07/21/2018 [facility] /HPF 11:57 AM [facility] Squamous 3 (H) 0 - 1 07/21/2018 [place] Epithelial /HPF /HPF 11:57 AM [facility] Mucous Urine Present (A) NEG^Negat 07/21/2018 [place]anne /LPF 11:57 AM [facility] Specimen (Source) Anatomical Collection Method Collection Time Re ceived Time Location / / Volume Laterality Examination of URINE SPECIMEN 07/21/2018 9:56 019 midstream urine OBTAINED BY CLEAN AM CDT 10:29 A M T specimen CATCH PROCEDURE / (procedure) Unknown Milton Rosas MD LAB - URINE ORDERABLES Performing Organization Address City/State/ZIP Code Phon e Number M [facility] [address] [place] [address] [phone] [facility] [address] [place] [address], [facility] [phone] documented in this encounter Visit Diagnoses Diagnosis Pain of round ligament affecting pregnan cy, antepartum documented in this encounter Active and Recently Administered Medications Times are shown in CDT. 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
--- OUTSIDE RECORDS SUMMARY | 2021-10-01 16:51 | XMS_ITS | Encounter Summary ---
:1995 Author Organization [place] Address [facility] [place] [address] Care Team Providers Name Role Phone No Ref-Primary Primary Care Provider Reason for Visit Reason Comments Abdominal Pain lower abd; was seen in UC to day and had an UA there was some white cells but they sent me here cause they don't have an ultrasound [place] Encounter Details Date Type Department Care Team Description 10/18/2017 Emergency [facility] Bk Saldana A bdominal pain, left lower quadrant; Daniel Emergency MD Bacterial vaginosis; Dept [facility] Acute cystitis without hemat uria [address] [place] [address] [place] [address] [place], [place] [id number] (Wo rk) Social History Tobacco Use Types Packs/Day Years Used Date Never Smoker Smokeless Tobacco: Never Used Alcohol Use Standard Drinks/Week Comments No 0 (1 standard drink = 0.6 oz pure alcoho l) Sex Assigned at Date Recorded Female 10/01/2020 10:47 AM CDT documented as of this encounter Last Filed Vital Signs Vital Sign Reading Time Taken Comments Blood Pressure 129/82 10/18/2017 2:50 PM CDT Pulse 62 10/18/2017 2:50 PM CDT Temperature 36.8 ??C (98.3 ??F) 10/18/2017 2:50 PM CDT Respiratory Rate 16 10/18/2017 2:50 PM CDT Oxygen Saturation 98% 10/18/2017 2:50 PM CDT Inhaled Oxygen Concentration - - Weight 63.5 kg (140 lb) 10/18/2017 2:50 PM CDT Height 157.5 cm (5' 2) 10/18/2017 2:50 PM CDT Body Mass Index 25.61 10/18/2017 2:50 PM CDT documented in this encounter Discharge Instructions Discharge InstructionsBk Saldana MD - 10/18/2017 5:21 PM CDT Images from the original note were not included. Bacterial Vaginosis You have a vaginal infection called bacterial vaginosis (BV). Both good and bad bacteria are presentin a healthy vagina. BV occurs when these bacteria get out of balance. The number of bad bacteria increase. And the number of good bacteria decrease. Although BV is associated with sexual activity, it is not a sexually transmitted disease. BV may or may not cause symptoms. [...] even if your symptoms go away. ?? Don't douche or having sex during treatment. ?? If you have sex with a female partner, ask your healthcare provider if she should also be treated. Prevention ?? Don't douche. ?? Don't have sex. If you do have sex, then take steps to lower your risk: ? Use condoms when having sex. ? Limit the number of sexual partners you have. Follow-up care Follow up with your healthcare [...] joint pain, or sores. Date Last Reviewed: 12/14/2016 ?? [id number] [employer]. [address] [place] [address]. All rights reserved. This information is not intended as a substitute for professional medical care. Always follow your healthcare professional's instructions. Understanding Urinary Tract Infections (UTIs) Most UTIs are caused by bacteria, although they may also be caused by viruses or fungi. Bacteria from the bowel are the most common source of infection.??The infection may start because of any of the following: ?? Sexual activity. During sex, bacteria can travel from the penis, vagina, or rectum into the urethra.? Bacteria on the skin??outside the rectum may travel into the urethra. This is more common in women since the rectum and urethra are closer to each other than in men. Wiping from front to back after using the toilet and keeping the area clean can help prevent germs from getting to the urethra. ?? Blockage of urine flow through the urinary tract. If urine sits too long, germs may start to growout of control. Parts of the urinary tract The infection can??occur in any part of the urinary tract. ?? The kidneys collect and store urine. ?? The ureters carry urine from the kidneys to the bladder. ?? The bladder holds urine until you are ready to let it out. ?? The urethra carries urine from the bladder out of the body. It is shorter in women, so bacteria can move through??it more easily.??The urethra is longer in men, so a UTI is less likely to reach the bladder or kidneys in men. Date Last Reviewed: 03/16/2016 ?? [id number] [employer]. [address] [place] [address], [place] [address]. All rights reserved. This information is not intended as a substitute for professional medical care. Always follow your healthcare professional's instructions. Discharge Instructions Abdominal Pain Abdominal pain (belly pain) can be caused by many things. Your evaluation today does not show the exact cause for your pain. Your provider today has decided that it is unlikely your pain is due to a life threatening problem, or a problem requiring surgery or hospital admission. Sometimes those problems cannot be found right away, so it is very important that you follow up as directed. Sometimes onlythe changes which occur over time allow the cause of your pain to be found. Generally, every Emergency Department visit should have a follow-up clinic visit with either a primary or a specialty clinic/provider. Please follow-up as instructed by your emergency provider today. With abdominal pain, we often recommend very close follow-up, such as the following day. ADULTS: Return to the Emergency Department right away if: ??? You get an oral temperature above 102oF or as directed by your provider. ??? You have blood in your stools. This may be bright red or appear as black, tarry stools. ??? You keep vomiting (throwing up) or cannot drink liquids. ??? You see blood when you vomit. ??? You cannot have a bowel movement or you cannot pass gas. ??? Your stomach gets bloated or bigger. ??? Your skin or the whites of your eyes look yellow. ??? You faint. ??? You have bloody, frequent or painful urination (peeing). ??? You have new symptoms or anything that worries you. CHILDREN: Return to the Emergency Department right away if your child has any of the above-listed symptoms or the following: ??? Pushes your hand away or screams/cries when his/her belly is touched. ??? You notice your child is very fussy or weak. ??? Your child is very tired and is too tired to eat or drink. ??? Your child is dehydrated. Signs of dehydration can be: o Significant change in the amount of wet diapers/urine. o Your infant or child starts to have dry mouth and lips, or no saliva (spit) or tears. WOMEN: Return to the Emergency Department right away if you have any of the above-listed symptoms or the following: ??? You have bleeding, leaking fluid or passing tissue from the vagina. ??? You have worse pain or cramping, or pain in your shoulder or back. ??? You have vomiting that will not stop. ??? You have a temperature of 100oF or more. ??? Your baby is not moving as much as usual. ??? You faint. ??? You get a bad headache with or without eye problems and abdominal pain. ??? You have a seizure. ??? You have unusual discharge from your vagina and abdominal pain. Abdominal pain is pretty common during . Your pain may or may not be related to your . You should follow-up closely with your OB provider so they can evaluate you and your baby. Until you follow-up with your regular provider, do the following: ??? Avoid sex and do not put anything in your vagina. ??? Drink clear fluids. ??? Only take medications approved by your provider. MORE INFORMATION: Appendicitis: A possible cause of abdominal pain in any person who still has their appendix is acute appendicitis. Appendicitis is often hard to diagnose. Testing does not always rule out early appendicitis or other causes of abdominal pain. Close follow-up with your provider and re-evaluations may be needed to figure out the reason for your abdominal pain. Follow-up: It is very important that you make an appointment with your clinic and go to the appointment. If you do not follow-up with your primary provider, it may result in missing an important development which could result in permanent injury or disability and/or lasting pain. If there is any problem keeping your appointment, call your provider or return to the Emergency Department. Medications: Take your medications as directed by your provider today. Before using [id number] medications, ask your provider and make sure to take the medications as directed. If you have anyquestions about medications, ask your provider. Diet: Resume your normal diet as much as possible, but do not eat fried, fatty or spicy foods whileyou have pain. Do not drink alcohol or have caffeine. Do not smoke tobacco. Probiotics: If you have been given an antibiotic, you may want to also take a probiotic pill or eat yogurt with live cultures. Probiotics have good bacteria to help your intestines stay healthy. Studies have shown that probiotics help prevent diarrhea (loose stools) and other intestine problems (including C. diff infection) when you take antibiotics. You can buy these without a prescription in the pharmacy section of the store. If you were given a prescription for [...] if there is anything that worries you. documented in this encounter Medications at Time of Discharge Medication Sig Dispensed Refills Start Date End Date EPINEPHrine INJECT 1 PEN UTD FOR 3 06/01/2017 (EPIPEN/ADRENACLICK/OR ALLERGIC REACTION ANY BX GENERIC EQUIV) 0.3 UTD MG/0.3ML injection 2-pack metroNIDAZOLE (FLAGYL) Take 1 tablet (500 14 tablet 0 10/1810/25/2017 500 MG tablet mg) by mouth 2 times daily for 7 days sulfamethoxazole-trimetho Take 1 tablet by 6 tablet 0 07/201710/21/2017 prim (BACTRIM DS) 800-160 mouth 2 times daily MG per tablet for 3 days documented as of this encounter ED Notes Asia Lucia RN - 10/18/2017 3:23 PM CDT Report to Carlos ALVES Carlos Gibson RN - 10/18/2017 2:48 PM CDT Bed: ED04 Expected date: Expected time: Means of arrival: Comments: Bk Saldana MD - 10/18/2017 2:46 PM CDT History Chief Complaint: Abdominal pain HPI: The history is provided by the patient. Ava Parker is a 21 year old female with a history of anxiety who presents to the emergency department with her boyfriend for evaluation of abdominal pain. The patient reports that three days ago she began to notice some lower left quadrant pain. It has gradually gotten worse and today has been severe and sharp with slight radiation into her right side. She endorses feeling somewhat lightheaded with the sensation of needing to urinate, but once she does, she has moderate resolution of her abdominal pain and lightheadedness. She has not had an increase in urgency or frequency. She has had UTI's in the past but has never had pain like this. She presented to urgent care for evaluation and was noted to have WBC in her urine so was recommended here for further evaluation. She has not and will not takeany medications to treat the pain. Here, the patient rates her pain 7/10 in severity. Her LMP was about 3 weeks ago and was with less discharge than usual. Endorses the possibility of . She denies any current vaginal discharge or bleeding, vomiting, fever, diarrhea, or constipation and has noother complaints. Allergies: Peanut (Diagnostic) Mobile Oil Medications: Epinephrine Past Medical History: Anxiety Conduct disorder Depression GERD PTSD Asthma Past Surgical History: Foot surgery Family History: History reviewed. No pertinent family history. Social History: Presents with boyfriend Tobacco use: Never smoker Alcohol use: No Marital Status: Single Review of Systems Constitutional: Negative for fever. Gastrointestinal: Positive for abdominal pain. Negative for constipation, diarrhea and vomiting. Genitourinary: Negative for frequency, urgency, vaginal bleeding and vaginal discharge. Neurological: Positive for light-headedness. All other systems reviewed and are negative. Physical Exam Patient Vitals for the past 24 hrs: BP Temp Temp src Pulse Resp SpO2 Height Weight 10/18/17 1450 129/82 98.3 ??F (36.8 ??C) Oral 62 16 98 % 1.575 m (5' 2) 63.5 kg (140 lb) Physical Exam Eyes: The pupils are equal and round Conjunctivae and sclerae are normal ENT: The nose is normal Pinnae are normal The oropharynx is normal CV: Regular rate and rhythm No edema Resp: Lungs are clear Non-labored No rales No wheezing GI: Abdomen is soft with mild tenderness in the low LLQ/pelvic area, there is no rigidity No distension No rebound tenderness : Normal vaginal mucosa. Fishy smell. No lesions. MS: Normal muscular tone No asymmetric leg swelling Skin: No rash or acute skin lesions noted Neuro: Awake, alert. Speech is normal and fluent. Face is symmetric. Moves all extremities Emergency Department Course Imaging: Radiographic findings were communicated with the patient who voiced understanding of the findings. US Pelvic complete with transvaginal & Abd/Pel Duplex Limited: IMPRESSION: Pelvic ultrasound within normal limits. Imaging independently reviewed and agree with radiologist interpretation. Laboratory: UA with Microscopic: Protein Albumin 10, Leukocyte esterase, large, Bacteria few, Squamous 5 (H), Mucous present, ow Negative HCG qualitative (Urine): Negative Wet prep: Specimen vaginal, no PMNs seen, no trichomonas seen, no yeast seen, clue cells seen (A). Chlamydia trachomatis: Pending Neisseria gonorrheae: Pending Emergency Department Course: Past medical records, nursing notes, and vitals reviewed. 1456: I performed an exam of the patient and obtained history, as documented above. 1459: The patient was offered pain medications while in the ED; they are declining this at this time. The patient provided a urine sample here in the emergency department. This was sent for laboratory testing, findings above. The patient was sent for a US while in the emergency department, findings above. I performed a pelvic exam with a female chief airline radio operator present. I personally reviewed the laboratory results with the Patient and significant other and answered allrelated questions prior to discharge. 1727: I rechecked the patient. Findings and plan explained to the Patient and significant other. Patient discharged home with instructions regarding supportive care, medications, and reasons to return.The importance of close follow-up was reviewed. Impression & Plan Medical Decision Making: Ava Parker is a 21 year old female who presents to the emergency department with left lower quadrantabdominal pain. She reports the pain is gradually worsening over the past few days. She was seen in clinic and noticed to have WBC in her urine and was told to come here for evaluation of ovarian pathology. Here, on exam she has tenderness in the pelvic area of the left lower side. She does not have any bowel symptoms but does some to have some bladder discomfort and frequency. UA was obtained and shows a large amount of Leukocyte esterase but only three WBC and a few bacteria. Possible that she hasearly cystitis, but given pain on the left side, will order US to evaluate for ovarian cyst or torsion. US is normal. There is no evidence of torsion or cyst. She has no tenderness in her right lower quadrant to make me suspect appendicitis or other pathology. Pelvic exam revealed clue cells. She was discharged home with prescription for flagyl as well as bactrim for possible UTI. Urine culture was sent. Follow-up with primary care provider in the next few days. Return with new or worsening symptoms. In addition, she did report some concerns about possible STI, though she thought it was very unlikely. Chlamydia and gonorrhea testing were sent. Diagnosis: ICD-10-CM 1. Abdominal pain, left lower quadrant R10.32 2. Bacterial vaginosis N76.0 B96.89 3. Acute cystitis without hematuria N30.00 Disposition: Discharged to home with plan as outlined. Discharge Medications: New Prescriptions METRONIDAZOLE (FLAGYL) 500 MG TABLET Take 1 tablet (500 mg) by mouth 2 times daily for 7 days SULFAMETHOXAZOLE-TRIMETHOPRIM (BACTRIM DS) 800-160 MG PER TABLET Take 1 tablet by mouth 2 times daily for 3 days Scribe Disclosure: Prakash Wolfe, am serving as a scribe at 2:56 PM on 10/18/2017 to document services personally performed by Bk Saldana MD based on my observations and the provider's statements to me. Bk Saldana MD 10/18/2017 EMERGENCY DEPARTMENT Bk Saldana MD 10/18/17 3611 documented in this encounter Plan of Treatment Not on filedocumented as of this encounter Procedures Procedure Name Priority Date/Time Associated Comments Diagnosis WET PREPARATION STAT 10/18/2017 4:50 Results for this PM CDT procedure are i n the results section. NEISSERIA GONORRHOEAE STAT 10/18/2017 4:50 Abdominal pain, Results for this PCR PM CDT left lower quadrant procedur e are in the results section. CHLAMYDIA TRACHOMATIS STAT 10/18/2017 4:50 Abdominal pain, Results for this PCR PM CDT left lower quadrant procedur e are in the results section. US PELVIS COMPLETE W STAT 10/18/2017 3:52 Res ults for this TRANSVAGINAL AND PM CDT procedure a re in DOPPLER LIMITED the results section. HCG QUALITATIVE URINE STAT 10/18/2017 3:06 Re sults for this PM CDT procedure are i n the results section. ROUTINE UA WITH STAT 10/18/2017 3:06 Results for this MICROSCOPIC PM CDT procedure are i n the results section. URINE CULTURE Routine 10/18/2017 3:06 Abdominal pain, Results for this PM CDT left lower quadrant procedur e are in the results section. documented in this encounter Results Neisseria gonorrhoea PCR (10/18/2017 4:50 PM CDT) Analysis Performed At Path logist Time Signature Specimen Vagina 10/18/2017 [facility] 4:59 PM CDT [facility] N Gonorrhea Negative NEG^Negati 10/19/2017 [facility] ve 11:45 AM CDT [facility] Comment: Negative for N. gonorrhoeae rRNA by bo scription mediated amplification. A negative result by head waiter/waitress banquet media danielle amplification does not preclude the presence of N. gonorrhoeae infection because results are dependent on proper and adequate collection, absence of inhibitors, and sufficient rRNA to be detected. Specimen Anatomical Collection Method Collection Time Receive d Time (Source) Location / / Volume Laterality Specimen from VAGINAL STRUCTURE 10/18/2017 4:50 10/18 vagina / Unknown PM CDT 4:59 PM CDT (specimen) Bk Saldana MD LAB - MICRO GENERAL ORDERABL ES Performing Organization Address City/State/ZIP Code Phon e Number [facility] [address] [place] [address] [facility] [address] [place] [address], [place] [phone] Chlamydia trachomatis PCR (10/18/2017 4:50 PM CDT) Patholo gist Method Time Signature Specimen Vagina 10/18/2017 [facility] Description 4:59 PM CDT [facility] Chlamydia Negative NEG^Negat 10/19/2017 [facility] Trachomatis PCR rosanne 11:45 AM CDT [facility] Comment: Negative for C. trachomatis rRNA by bo scription mediated amplification. A negative result by head waiter/waitress banquet media danielle amplification does not preclude the presence of C. trachomatis infection because results are dependent on proper and adequate collection, absence of inhibitors, and sufficient rRNA to be detected. Specimen Anatomical Collection Method Collection Time Receive d Time (Source) Location / / Volume Laterality Specimen from 10/18/2017 4:50 10/18/2017 vagina PM CDT 4:59 PM CDT (specimen) Bk Saldana MD LAB - MICRO GENERAL ORDERABL ES Performing Organization Address City/State/ZIP Code Phon e Number [id number] [place] [address] [address] [place] [address], [place] [phone] (ABNORMAL) Wet prep (10/18/2017 4:50 PM CDT) [facility] gist Method Time Signature Specimen Vagina [facility] Description [facility] Wet Prep No [facility] 5:05 PM CDT [facility] Wet Prep No yeast seen [facility]/18/[facility] 5:05 PM CDT [facility] Wet Prep Clue cells seen 10/18/2017 JONANCY (A) 5:05 PM CDT [facility] Wet Prep Many 10/18/2017 [place] PMNs seen 5:05 PM CDT [facility] Specimen Anatomical Collection Method Collection Time Receive d Time (Source) Location / / Volume Laterality Specimen from 10/18/2017 4:50 10/18/2017 vagina PM CDT 4:59 PM CDT (specimen) Bk Saldana MD LAB - MICRO GENERAL ORDERABL ES Performing Organization Address City/State/ZIP Code Phon e Number M [facility] [address] [place] [address] [phone] [facility] [address] [place] [address], [place] [phone] US Pelvis Cmplt w Transvag & Doppler LmtPel Duplex Limited (10/18/2017 3:52 PM CDT) Anatomical Region Laterality Modality Abdomen/Pelvis Ultrasound Specimen (Source) Anatomical Location Collection Method / Collectio n Time Received Time / Laterality Volume Impressions 10/18/2017 4:04 PM CDT IMPRESSION: ??Pelvic ultrasound within normal limits. CODY QUICK MD Narrative 10/18/2017 4:04 PM CDT US PELVIS COMPLETE W TRANSVAGINAL AND DOPPLER LIMITED ??10/18/2017 3:52 PM HISTORY: ??Pelvic pain on left worsening x 3 days; FINDINGS: Ultrasound was performed trans vaginally as well as transabdominally in order to optimally e valuate the adnexa. The uterus measured 6.9 x 4.7 x 3.5 cm w ith an endometrial thickness of 1.1 cm. No myometrial abnormality was demonstrated. ??The right and left ovaries appeared within normal limi ts. Doppler waveform analysis demonstrated grossly normal blood flow t o both ovaries. There was no free pelvic fluid. Procedure Note Cody Quick MD - 10/18/2017Formatt ing of this note might be different from the original. US PELVIS COMPLETE W TRANSVAGINAL AND DO PPLER LIMITED 10/18/2017 3:52 PM HISTORY: Pelvic pain on left worsening x 3 days; FINDINGS: Ultrasound was performed trans vaginally as well as transabdominally in order to optimally e valuate the adnexa. The uterus measured 6.9 x 4.7 x 3.5 cm w ith an endometrial thickness of 1.1 cm. No myometrial abnormality was demonstrated. The right and left ovaries appeared within normal limi ts. Doppler waveform analysis demonstrated grossly normal blood flow t o both ovaries. There was no free pelvic fluid. IMPRESSION: Pelvic ultrasound within no rmal limits. CODY QUICK MD Bk Saldana MD IMG US ORDERABLES Urine Culture Aerobic Bacterial (10/18/2017 3:06 PM CDT) Component Value Ref Test Analysis Performed At [facility] Range Method Time Signature Specimen Midstream Urine INFECTIOUS Description DISEASE DIAGNOSTIC LABORATORY Special Specimen 10/18/2017 [facility] 9:[address] [facility] Culture Micro No growth 10/19/2017 INFECTIOUS 9:10 PM CDT DISEASE DIAGNOSTIC LABORATORY Specimen (Source) Anatomical Collection Method Collection Time Re ceived Time Location / / Volume Laterality Examination of 10/18/2017 3:06 8 midstream urine PM CDT 5:55 PM CDT specimen (procedure) Bk Saldana MD LAB - MICRO GENERAL ORDERABL ES Performing Organization Address City/[facility]/ZIP Code Phon e Number INFECTIOUS DISEASES [address] [place] [address] DIAGNOSTIC LABORATORY, [facility] INFECTIOUS DISEASE [address] [place] [address], [facility] DIAGNOSTIC LABORATORY [id number] [place] [address] HCG qualitative urine (UPT) (10/18/2017 3:06 PM CDT) athologist Signature HCG Qual Urine Negative NEG^Negati 10/18/2017 [place] ve 3:27 PM CDT [facility] Comment: This test is for screening purposes. ??R esults should be interpreted along with the clinical picture. ??Confirmation te sting is available if warranted by ordering [id number], HCG Quantitative Pregna ncy. Specimen Anatomical Collection Method Collection Time Receive d Time (Source) Location / / Volume Laterality Urine specimen 10/18/2017 3:06 8 (specimen) PM CDT 3:20 PM CDT Bk Saldana MD LAB - URINE ORDERABLES Performing Organization Address City/State/ZIP Code Phon e Number [facility] [address] [place] [address] [facility] [address] [place] [address], [place] [phone] (ABNORMAL) UA with Microscopic (10/18/2017 3:06 PM CDT) Patholo gist Method Time Signature Color Urine Yellow 10/18/2017 [place] 3:30 PM CDT [facility] Appearance Urine Slightly 10/18/2017 [place] Cloudy 3:30 PM CDT [facility] [facility] Glucose Urine Negative NEG^Negat 10/18/2017 JONANCY rosanne mg/dL 3:30 PM CDT [facility] Bilirubin Urine Negative NEG^Negat 10/18/2017 JONANCY rosanne 3:30 PM CDT [facility] Ketones Urine Negative NEG^Negat 10/18/2017 JONANCY rosanne mg/dL 3:30 PM [facility] Specific [place] 1.028 1.003 - 10/18/2017 JONANCY Urine 1.035 3:30 PM [facility] Blood Urine Negative NEG^Negat 10/18/2017 JONANCY rosanne 3:30 PM [facility] pH Urine 5.0 5.0 - 7.0 10/18/2017 JONANCY pH 3:30 PM [facility] Protein Albumin 10 (A) NEG^Negat 10/18/2017 JONANCY Urine rosanne mg/dL 3:30 PM [facility] Urobilinogen 2.0 0.0 - 2.0 10/18/2017 JONANCY mg/dL mg/dL 3:30 PM [facility] Nitrite Urine Negative NEG^Negat 10/18/2017 JONANCY rosanne 3:30 PM [facility] Leukocyte Large (A) NEG^Negat 10/18/2017 JONANCY Esterase Urine rosanne 3:30 PM [facility] Source Midstream 10/18/2017 [place] Urine 3:21 PM [facility] WBC Urine 3 0 - 5 10/18/2017 [place] /HPF 3:30 PM [facility] RBC Urine <1 0 - 2 10/18/2017 [place] /HPF 3:30 PM [facility] Bacteria Urine Few (A) NEG^Negat 10/18/2017 [place] [place]anne /HPF 3:30 PM [facility] Squamous 5 (H) 0 - 1 10/18/2017 JONANCY Epithelial /HPF /HPF 3:30 PM [facility] Mucous Urine Present (A) NEG^Negat 10/18/2017 JON[place]Y rosanne /LPF 3:30 PM [facility] Specimen (Source) Anatomical Collection Method Collection Time Re ceived Time Location / / Volume Laterality Examination of 10/18/2017 3:06 8 midstream urine PM T 3:20 PM T specimen (procedure) Bk Saldana MD LAB - URINE ORDERABLES Performing Organization Address City/State/ZIP Code Phon e Number M [facility] [address] [place] [address] [address] [facility] [address], [place] [address], U [phone] documented in this encounter Visit Diagnoses Diagnosis Abdominal pain, left lower quadrant Bacterial vaginosis Vaginitis and vulvovaginitis, unspecifie d Acute cystitis without hematuria Acute cystitis documented in this encounter Care Teams Workforce Advisor Relationship Specialty Start Date End Date No Ref-Primary, Physician PCP - General 02/23/14 documented as of this encounter
--- OUTSIDE RECORDS SUMMARY | 2021-10-01 16:51 | XMS_ITS | Encounter Summary ---
:1995 Author Organization [place] Address [address] [place] [id number] Care Team Providers Name Role Phone No Ref-Primary Primary Care Provider Olga Ibarra DO Unavailable Tray Lucas MD Unavailable Deandre Ramos APRN Unavailable Olga Ibarra DO Unavailable Reason for Visit Reason Comments Sexual Problem Encounter Details Date Type Department Care Team Description 09/11/2016 Communication - [place] Provider, [facility] Scheduling [address] [place] [address] Social History Tobacco Use Types [...] documented as of this encounter Care Teams Dredge Captain Relationship Specialty Start Date End Date No Ref-Primary, Physician PCP - General 02/23/14 Inga Ibarra DO Assigned OBGYN Provider 01/06/20 06/09/20 [address] [place] [id number] Dottie Lucas MD Assigned OBGYN Provider 06/10/20 06/16/20 [address] [place] [id number] Elva Ramos APRN CNM Assigned OBGYN Provider 07/01/20 11/10/[address] [place] [id number] Inga Ibarra DO Assigned OBGYN Provider 06/17/20 06/30/20 [address] [place] [id number] documented as of this encounter
--- OUTSIDE RECORDS SUMMARY | 2021-10-01 16:51 | XMS_ITS | Encounter Summary ---
:1995 Author Organization [place] Address [address] [place] [address] Care Team Providers Name Role Phone No Ref-Primary Primary Care Provider Reason for Visit Reason Comments Pharyngitis x3 days Encounter Details Date Type Department Care Team Description 05/19/2017 Office Visit [facility] Ruby Bo Acute pharyngitis, unspecified etiology (Primary Dx); [facility] [place] PA-C Throat pain [place] [address] [place] [phone] Social History Tobacco Use Types Packs/Day Years Used Date Never Smoker Smokeless Tobacco: Never Used Alcohol Use Standard Drinks/Week Comments No 0 (1 standard drink = 0.6 oz pure alcoho l) Sex Assigned at Date Recorded Female 10/01/2020 10:47 AM CDT documented as of this encounter Last Filed Vital Signs Vital Sign Reading Time Taken Comments Blood Pressure 94/52 05/19/2017 1:03 PM [employer] Pulse 50 05/19/2017 1:03 PM [employer] Temperature 36.7 ??C (98.1 ??F) 05/19/2017 1:03 PM [employer] Respiratory Rate 16 05/19/2017 1:03 PM [employer] Oxygen Saturation 98% 05/19/2017 1:03 PM [employer] Inhaled Oxygen Concentration - - Weight 63.5 kg (140 lb) 05/19/2017 1:03 PM [employer] Height 156.8 cm (5' 1.75) 05/19/2017 1:03 PM [employer] Body Mass Index 25.81 05/19/2017 1:03 PM [employer] documented in this encounter Progress Notes Ruby Bo PA-C - 05/19/2017 1:00 PM CST SUBJECTIVE: Ava Parker is a 21 year old female who presents to clinic today for the following health issues: Concern - Sore throat Onset: x3 days ?? Description: Pt states she has been having a scratchy sorethroat x3 days ?? Intensity: moderate ?? Progression of Symptoms: worsening ?? Accompanying Signs & Symptoms: ?? No fevers or chills. ?? No coughing, slight runny nose. NO ear pain. ?? No N/V or GI upset No diarrhea ?? Previous history of similar problem: Yes ?? Precipitating factors: Worsened by: nothing ?? Alleviating factors: Improved by: hot tea Sister positive for strep and mono a few Weeks ago Therapies Tried and outcome: hot tea-with relief Problem list and histories reviewed & adjusted, as indicated. Additional history: as documented Labs reviewed in [facility] Reviewed and updated as needed this visit by clinical staff Tobacco Allergies Meds Soc Hx Reviewed and updated as needed this visit by Provider Allergies Meds ROS: Constitutional, HEENT, cardiovascular, pulmonary, gi and gu systems are negative, except as otherwise noted. OBJECTIVE: BP 94/52 (BP Location: Left arm, Patient Position: Chair, Cuff Size: Adult Regular) Pulse 50 Temp 98.1 ??F (36.7 ??C) (Oral) Resp 16 Ht 5' 1.75 (1.568 m) Wt 140 lb (63.5 kg) LMP 05/19/2017 SpO2 98% BMI 25.81 kg/m2 Body mass index is 25.81 kg/(m^2). GENERAL: healthy, alert and no distress HENT: normal cephalic/atraumatic, both ears: normal: no effusions, no erythema, normal landmarks, nose and mouth without ulcers or lesions, oropharynx clear and tonsillar erythema NECK: cervical adenopathy slight, no asymmetry, masses, or scars and thyroid normal to palpation RESP: lungs clear to auscultation - no rales, rhonchi or wheezes CV: regular rates and rhythm and normal S1 S2, no S3 or S4 SKIN: no suspicious lesions or rashes Diagnostic Test Results: Results for orders placed or performed in visit on 05/19/17 (from the past 24 hour(s)) Rapid strep screen Result Value Ref Range Specimen Description Throat Rapid Strep A Screen NEGATIVE: No Group A streptococcal antigen detected by immunoassay, await culture report. ASSESSMENT/PLAN: 1. Acute pharyngitis, unspecified etiology 2. Throat pain - Rapid strep screen - Beta strep group A culture Reviewed symptomatic treatment, Fluids, gargles OTC medication for sore throat pain, lozenges, sprays. NSAID Recheck prn not improving. Culture pending and will notify if need to change abx. Ruby Bo PA-C [facility] [employer] documented in this encounter Plan of Treatment Not on filedocumented as of this encounter Procedures Procedure Name Priority Date/Time Associated Diagnosis Comme nts RAPID STREP SCREEN STAT 05/19/2017 1:16 PM Throat pain Re sults for this THROAT SWAB [employer] procedure are i n the results section. BETA HEMOLYTIC Routine 05/19/2017 1:16 PM Throat pain Result s for this STREP GROUP A [employer] procedure are in CULTURE the results section. documented in this encounter Results Beta strep group A culture (05/19/2017 1:16 PM [employer]) Component Value Ref Test Analysis Performed At [facility] gist Range Method Time Signature Specimen [facility]roat [facility] Culture Micro No beta 05/20/2017 [place] hemolytic 8:24 AM [employer] [facility] Streptococcus [place] Group A isolated [facility] Specimen Anatomical Collection Method Collection Time Receive d Time (Source) Location / / Volume Laterality Specimen from 05/19/2017 1:16 05/19/2017 throat PM [employer] 1:21 PM [employer] (specimen) Ruby Bo PA-C LAB - MICRO GENERAL ORDERAB LES Performing Organization Address City/State/ZIP Code Phon e Number [facility] [place] [address] [place] [address] Rapid strep screen (05/19/2017 1:16 PM [employer]) Component Value Ref Test Analysis Performed At [facility] Range Method Time Signature Specimen Throat [facility] [place] Rapid Strep A NEGATIVE: No 05/19/2017 [place] Screen Group A 1:22 PM [facility]ICS streptococcal [place] antigen detected [facility] by immunoassay, await culture report. Specimen Anatomical Collection Method Collection Time Receive d Time (Source) Location / / Volume Laterality Specimen from 05/19/2017 1:16 05/19/2017 throat PM [employer] 1:21 PM [employer] (specimen) Ruby Bo PA-C LAB - MICRO GENERAL ORDERAB LES Performing Organization Address City/[facility]/ZIP Code Phon e Number [facility] [place] [address] [place] [address] documented in this encounter Visit Diagnoses Diagnosis Acute pharyngitis, unspecified etiology - Primary Throat pain documented in this encounter Care Teams Consulting Nurse Relationship Specialty Start Date End Date No Ref-Primary, Physician PCP - General 02/23/14 documented as of this encounter
--- OUTSIDE RECORDS SUMMARY | 2021-10-01 16:51 | XMS_ITS | Encounter Summary ---
:1995 Author Organization [facility] Address Formerly [facility]0 [facility] [place] [address] Care Team Providers Name Role Phone No Ref-Primary Primary Care Provider Reason for Visit Reason Comments Care 2019 Encounter Details Date Type Department Care Team Description 06/03/2018 Office [facility] Le Maya En counter for Visit [facility] VAUGHN Biggs SUPERVISOR GRINDING supervision of [place] [address] normal first [address] [facility] [address] [place] [address] trimester (Primary [address] Dx) [place], [place] (Work) [address] [phone] Social History Tobacco Use Types Packs/Day Years Used Date Never Smoker Smokeless Tobacco: Never Used Alcohol Use Standard Drinks/Week Comments No 0 (1 standard drink = 0.6 oz pure alcoho l) Sex Assigned at Date Recorded Female 10/01/2020 10:47 AM CDT documented as of this encounter Last Filed Vital Signs Vital Sign Reading Time Taken Comments Blood Pressure 109/71 06/03/2018 8:38 AM CDT Pulse 82 06/03/2018 8:38 AM CDT Temperature - - Respiratory Rate - - Oxygen Saturation - - Inhaled Oxygen Concentration - - Weight 71.9 kg (158 lb 9.6 oz) 06/03/2018 8:38 AM CDT Height 157.5 cm (5' 2) 06/03/2018 8:38 AM CDT Body Mass Index 29.01 06/03/2018 8:38 AM CDT documented in this encounter Progress Notes Le Maya, VAUGHN SUPERVISOR GRINDING - 06/03/2018 8:30 AM CDT SUBJECTIVE: HPI: here for first . She is having some nausea, but if eats frequently, nausea is much better. On vitamins. Did some discussion about depression history. Patient states she is noton any medication and doing well. She states is very aware of what her anxiety is like or depression moods, but doing well. Had a full physical with pap and STD screening in October 2017. She is herewith her partner, they are very excited about . 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 She is also experiencing round ligament pain that comes and goes, explained that is normal. This is a 22 year old female patient, who presents for her first obstetrical visit. BONNIE: 12/26/2018, by Last Menstrual Period. She is 10w4d weeks. Her cycles are regular. Her last menstrual period was normal. Since her LMP, she has experienced nausea, emesis, headache, lightheadedness, constipation and diarrhea, abd pain). She denies fatigue, headache, vaginal discharge, dysuria, pelvic pain, urinary urgency, urinary frequency and vaginal bleeding. 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 Anxiety ??? Conduct disorder ??? Depression ??? Gastroesophageal reflux disease ??? PTSD (post-traumatic stress disorder) ??? Uncomplicated asthma excercise induced . She has a history of first Since her last LMP she denies use of alcohol, tobacco and street drugs. Past medical, surgical, social and family history were reviewed and updated in [employer]. Current Outpatient Medications Medication ??? EPINEPHrine (EPIPEN/ADRENACLICK/OR ANY BX GENERIC EQUIV) 0.3 MG/0.3ML injection 2-pack ??? Prenat w/o X-OH-Dzohhso-FA-DHA (PNV-DHA PO) No current facility-administered medications for this visit. ROS: 12 point review of systems negative other than symptoms noted below. Constitutional: Fatigue Gastrointestinal: Nausea, Vomiting and abd pain OBJECTIVE: EXAM: BP 109/71 (BP Location: Left arm, Patient Position: Sitting, Cuff Size: Adult Regular) Pulse 82 Ht 1.575 m (5' 2) Wt 71.9 kg (158 lb 9.6 oz) LMP 03/21/2018 BMI 29.01 kg/m?? Body mass index is 29.01 kg/m??. GENERAL: healthy, alert and no distress EYES: Eyes grossly normal to inspection, PERRL and conjunctivae and sclerae normal HENT: ear canals and TM's normal, nose and mouth without ulcers or lesions NECK: no adenopathy, no asymmetry, masses, or scars and thyroid normal to palpation RESP: lungs clear to auscultation - no rales, rhonchi or wheezes BREAST: normal without masses, tenderness or nipple discharge and no palpable axillary masses or adenopathy CV: regular rate and rhythm, normal S1 S2, no S3 or S4, no murmur, click or rub, no peripheral edemaand peripheral pulses strong ABDOMEN: soft, nontender, no hepatosplenomegaly, no masses and bowel sounds normal MS: no gross musculoskeletal defects noted, no edema SKIN: no suspicious lesions or rashes NEURO: Normal strength and tone, mentation intact and speech normal PSYCH: mentation appears normal, affect normal/bright Pelvic exam was normal. Cervix closed. Uterus 10-12 week size. Adnexa clear bilaterally with out masses. ASSESSMENT/PLAN: ICD-10-CM 1. Encounter for supervision of normal first in first trimester Z34.01 Non Invasive Test Cell Free DNA ABO/Rh type and screen Hepatitis B surface antigen CBC with platelets HIV Antigen Antibody Combo Rubella Antibody IgG Quantitative Treponema Abs w Reflex to RPR and Titer Urine Culture Aerobic Bacterial *UA reflex to Microscopic 2. Supervision of normal IUP (intrauterine ) in primigravida Z34.00 22 year old , 10w4d weeks of with BONNIE of 12/26/2018, by Last Menstrual Period Discussed as follows: Counseling given: - Follow up in 4-6 weeks for return OB visit. - Recommended weight gain for : 15-25 lbs. PLAN/PATIENT INSTRUCTIONS: Return in 2-3 weeks for OB visit. Le Maya APRN SUPERVISOR GRINDING Important Information for Provider: hx PTSD, cutting, anx/dep OB Questionnaire Allergies as of 06/03/2018: Allergies as of 06/03/2018 - Reviewed 06/03/2018 Allergen Reaction Noted ??? Peanut (diagnostic) Shortness Of Breath 07/21/2013 ??? Falcon oil Current medications are: Current Outpatient Medications Medication Sig Dispense Refill ??? EPINEPHrine (EPIPEN/ADRENACLICK/OR ANY BX GENERIC EQUIV) 0.3 MG/0.3ML injection 2-pack INJECT 1 PEN UTD FOR ALLERGIC REACTION UTD 3 ??? Prenat w/o I-LB-Kxqjfqt-FA-DHA (PNV-DHA PO) Early ultrasound screening tool: Does patient have irregular periods? No Did patient use hormonal control in the three months prior to positive urine test? No Is the patient ? No Is the patient 10 weeks or greater at time of education visit? Yes documented in this encounter Plan of Treatment Not on filedocumented as of this encounter Procedures Procedure Name Priority Date/Time Associated Diagnosis Comme nts RUBELLA ANTIBODY IGG Routine 06/03/2018 9:30 Encounter for Re sults for this AM CDT supervision of procedure are in normal first the results in first section. trimester HIV ANTIGEN ANTIBODY Routine 06/03/2018 9:30 Encounter for Re sults for this COMBO AM CDT supervision of procedure are in normal first the results in first section. trimester TREPONEMA ABS W Routine 06/03/2018 9:30 Encounter for Results for this REFLEX TO RPR AND AM CDT supervision of procedur e are in TITER normal first the results in first section. trimester INVITAE NON-INVASIVE Routine 06/03/2018 9:30 Encounter for Re sults for this SCREENING AM CDT supervision of procedu re are in normal first the results in first section. trimester HEPATITIS B SURFACE Routine 06/03/2018 9:30 Encounter for Res ults for this ANTIGEN AM CDT supervision of procedure are in normal first the results in first section. trimester ABO/RH TYPE AND Routine 06/03/2018 9:30 Encounter for Results for this SCREEN AM CDT supervision of procedure are in normal first the results in first section. trimester CBC WITH PLATELETS Routine 06/03/2018 9:30 Encounter for Resu lts for this AM CDT supervision of procedure are in normal first the results in first section. trimester UA MACROSCOPIC WITH Routine 06/03/2018 9:12 Encounter for Res ults for this REFLEX TO MICRO AM CDT supervision of procedure are in normal first the results in first section. trimester URINE CULTURE Routine 06/03/2018 9:12 Encounter for Results f or this AM CDT supervision of procedure are in normal first the results in first section. trimester documented in this encounter Results Treponema Abs w Reflex to RPR and Titer (06/03/2018 9:30 AM CDT) Patholo gist Method Time Signature Treponema Nonreactive NR^Nonrea 06/04/2018 [facility] Antibodies ctive 12:34 PM CDT [facility] Specimen Anatomical Collection Method Collection Time Receive d Time (Source) Location / / Volume Laterality Blood specimen 06/03/2018 9:30 9 (specimen) AM CDT 9:39 AM CDT Le Maya APRN, CNP LAB - BLOOD ORDERABLES Performing Organization Address City/[facility]/ZIP Code Phon e Number [address] Rubella Antibody IgG Quantitative (06/03/2018 9:30 AM CDT) Analysis Performed At Patho logist Time Signature Rubella Antibody 45 IU/mL 06/04/2018 [facility] IgG Quantitative 12:34 PM CDT [facility] Comment: Positive. ??Suggests previous exposure o r immunization and probable immunity Reference Range: ??Unvaccinated Negative 0-7 IU/mL Vaccinated or previous exposure Positive 10 IU/ml or greater Specimen Anatomical Collection Method Collection Time Receive d Time (Source) Location / / Volume Laterality Blood specimen 06/03/2018 9:30 9 (specimen) AM CDT 9:39 AM CDT Le Maya APRN, CNP LAB - BLOOD ORDERABLES Performing Organization Address City/State/ZIP Code Phon e Number [facility] [address] [id number] [place] HIV Antigen Antibody Combo (06/03/2018 9:30 AM CDT) Patholo gist Method Time Signature HIV Antigen Nonreactive NR^Nonrea 06/04/2018 [facility] ctive 10:51 AM CDT [facility] Comment: HIV-1 p24 Ag & HIV-1/HIV-2 Ab N ot Detected Specimen Anatomical Collection Method Collection Time Receive d Time (Source) Location / / Volume Laterality Blood specimen 06/03/2018 9:30 9 (specimen) AM CDT 9:39 AM CDT Le Maya APRN SUPERVISOR GRINDING LAB - BLOOD ORDERABLES Performing Organization Address City/State/ZIP Code Phon e Number [id number] [place] [address] CBC with platelets (06/03/2018 9:30 AM CDT) P athologist Signature WBC 9.2 4.0 - 11.0 06/03/2018 [facility] 10e9/L 11:48 AM CDT [facility] RBC Count 4.28 3.8 - 5.2 06/03/2018 [facility] 10e12/L 11:48 AM CDT [facility] Hemoglobin 12.2 11.7 - 06/03/2018 [facility] 15.7 g/dL 11:48 AM CDT [facility] Hematocrit 36.4 35.0 - 06/03/2018 [facility] 47.0 % 11:48 AM CDT [facility] MCV 85 78 - 100 06/03/2018 [facility] fl 11:48 AM CDT [facility] MCH 28.5 26.5 - 06/03/2018 [facility] 33.0 pg 11:48 AM CDT [facility] MCHC 33.5 31.5 - 06/03/2018 [facility] 36.5 g/dL 11:48 AM CDT [facility] RDW 12.3 10.0 - 06/03/2018 [facility] 15.0 % 11:48 AM CDT [facility] Platelet Count 223 150 - 450 06/03/2018 [facility] 10e9/L 11:48 AM CDT [facility] Specimen Anatomical Collection Method Collection Time Receive d Time (Source) Location / / Volume Laterality Blood specimen 06/03/2018 9:30 9 (specimen) AM CDT 9:39 AM CDT Le Maya APRN, CNP LAB - BLOOD ORDERABLES Performing Organization Address City/State/ZIP Code Phon e Number [facility] [address] [address] [facility] 100 Hepatitis B surface antigen (06/03/2018 9:30 AM CDT) [facility] gist Method Time Signature Hep B Surface Nonreactive NR^Nonrea 06/04/2018 [facility] ctive 10:51 AM CDT [facility] Specimen Anatomical Collection Method Collection Time Receive d Time (Source) Location / / Volume Laterality Blood specimen 06/03/2018 9:30 9 (specimen) AM CDT 9:39 AM CDT Le Maya APRN, CNP LAB - BLOOD ORDERABLES Performing Organization Address City/[facility]/ZIP Code Phon e Number [facility] [address] [place] [address] [facility] ABO/Rh type and screen (06/03/2018 9:30 AM CDT) [facility] gist Method Time Signature ABO AB 06/03/2018 [facility] 6:45 PM CDT [facility] RH(D) Pos [facility] Antibody Neg 06/03/2018 [facility] Screen 6:45 PM CDT [facility] Test Valid [facility] 06/03/2018 [facility] Only At [facility] 5:51 PM CDT [facility] Specimen 06/06/2018 06/03/2018 [facility] Expires 5:51 PM CDT [facility] Specimen Anatomical Collection Method Collection Time Receive d Time (Source) Location / / Volume Laterality Blood specimen 06/03/2018 9:30 9 (specimen) AM CDT 9:39 AM CDT Le Maya APRN, CNP LAB - BLOOD BANK TEST ORDER Performing Organization Address City/State/ZIP Code Phon e Number [facility] [address] [address] [facility] [address] [address], U [phone] Non Invasive Test Cell Free DNA (06/03/2018 9:30 AM CDT) [facility] Method Time Signature Non Invasive Specimen not 06/03/2018 [facility] Test received 10:12 AM CDT [facility] Cell Free DNA DEEPALI HERNANDEZ Comment: PT DECLINING FOR NOW DUE TO INS URANCE COVERAGE QUESTIONS Specimen Anatomical Collection Method Collection Time Receive d Time (Source) Location / / Volume Laterality Blood specimen 06/03/2018 9:30 9 (specimen) AM CDT 9:39 AM CDT Le Maya APRN SUPERVISOR GRINDING LAB - BLOOD ORDERABLES Performing Organization Address City/State/ZIP Code Phon e Number [facility] [address] [address] [phone] [place] [facility] [address] *UA reflex to Microscopic (06/03/2018 9:12 AM CDT) [facility] gist Method Time Signature Color Urine Yellow 06/03/2018 [facility] 9:19 AM CDT [facility] Appearance Urine Clear 06/03/2018 [facility] 9:19 AM CDT [facility] Glucose Urine Negative NEG^Negat 06/03/2018 [facility] rosanne mg/dL 9:19 AM CDT [facility] Bilirubin Urine Negative NEG^Negat 06/03/2018 [facility] rosanne 9:19 AM CDT [facility] Ketones Urine Negative NEG^Negat 06/03/2018 [facility] rosanne mg/dL 9:19 AM CDT [facility] Specific [place] 1.020 1.003 - 06/03/2018 [facility] Urine 1.035 9:19 AM CDT [facility] Blood Urine Negative NEG^Negat 06/03/[facility] 9[facility]19 AM CDT [facility] pH Urine 5.5 5.0 - 7.0 06/03/2018 [facility] pH 9:19 AM CDT [facility] Protein Albumin Negative NEG^Negat 06/03/2018 [facility] Urine rosanne mg/dL 9:19 AM CDT [facility] Urobilinogen 0.2 0.2 - 1.0 06/03/2018 [facility] Urine EU/dL 9:19 AM CDT [facility] Nitrite Urine Negative NEG^Negat 06/03/2018 [facility] [place]sanne 9:19 AM CDT [facility] Leukocyte Negative NEG^Negat 06/03/2018 [facility] Esterase Urine rosanne 9:19 AM CDT [facility] Source Midstream 06/03/2018 [facility] Urine 9:15 AM CDT [facility] Specimen (Source) Anatomical Collection Method Collection Time Re ceived Time Location / / Volume Laterality Examination of 06/03/2018 9:12 9 midstream urine AM CDT 9:14 AM CDT specimen (procedure) Le Maya APRN, CNP LAB - URINE ORDERABLES Performing Organization Address City/[facility]/ZIP Code Phon e Number [facility] [address] [place] [address] [facility] [address] Urine Culture Aerobic Bacterial (06/03/2018 9:12 AM CDT) Component Value Ref Test Analysis Performed At [facility] Range Method Time Signature Specimen Midstream Urine INFECTIOUS Description DISEASES DIAGNOSTIC LABORATORY Special Specimen received 06/03/2018 [facility] in preservative 2:37 PM CDT [facility] Culture Micro <10,000 colonies/mL 06/04/2018 [facility] mixed urogenital nany 5:16 PM CDT [facility] SES Susceptibility testing not routinely done DIAGNOSTIC LABORATORY Specimen (Source) Anatomical Collection Method Collection Time Re ceived Time Location / / Volume Laterality Examination of 06/03/2018 9:12 9 midstream urine AM CDT 9:14 AM CDT specimen (procedure) Le Maya APRN, CNP LAB - MICRO GENERAL OR DERABLES Performing Organization Address City/[facility]/ZIP Code Phon e Number INFECTIOUS DISEASES [address] [place] [address] DIAGNOSTIC LABORATORY, [facility] INFECTIOUS DISEASES [address] [place] [address], A DIAGNOSTIC LABORATORY [address] [address], [facility] documented in this encounter Visit Diagnoses Diagnosis Encounter for supervision of normal firs t in first trimester - Primary Supervision of normal first documented in this encounter Care Teams Welfare Centre Manager Relationship Specialty Start Date End Date No Ref-Primary, Physician PCP - General 02/23/14 documented as of this encounter
--- OUTSIDE RECORDS SUMMARY | 2021-10-01 16:51 | XMS_ITS | Encounter Summary ---
:1995 Author Organization [facility] Address [address] [place] [id number] Care Team Providers Name Role Phone No Ref-Primary Primary Care Provider Reason for Visit Reason Onset Date Comments Lab Result Notice 10/22/2017 Encounter Details Date Type Department Care Team Description 10/22/2017 Telephone [facility] Ronald Patricio RN Lab Result Notice Emergency Dept [address] [place] [address] Social History Tobacco Use Types Packs/Day Years Used Date Never Smoker Smokeless Tobacco: Never Used Alcohol Use Standard Drinks/Week Comments No 0 (1 standard drink = 0.6 oz pure alcoho l) Sex Assigned at Date Recorded Female 10/01/2020 10:47 AM CDT documented as of this encounter Miscellaneous Notes Telephone Encounter - Randy Patricio, LONG - 10/22/2017 10:31 AM CDT [facility] Emergency Department Lab result notification Patient/parent Name Ava Reason for call Persisting symptoms and would like to know the results of the urine culture Lab Result Urine culture from 10/18/17 showed No Growth Current symptoms Yeah, I'm still having the abdominal pain. It's not as bad as when I was in the ER. She has completed the Bactrim DS (3 day course) Recommendations/Instructions Notified of urine culture. Advised to be reevaluated by PCP or consider returning to the ED. She does not have a PCP. Transferred to scheduling Contact your PCP clinic or return to the Emergency department if your ?? Symptoms worsen or other concerning symptom's. PCP follow-up Questions asked: YES [RN Name] Randy Patricio RN [facility] RN Lung Nodule and ED Lab Result RN Stephanie johnson (ED late result f/u RN): P [id number] [facility] INCIDENTAL RADIOLOGY F/U NURSES: P [id number] # [phone] documented in this encounter Plan of Treatment Not on filedocumented as of this encounter Visit Diagnoses Not on filedocumented in this encounter Care Teams Application Release Manager Relationship Specialty Start Date End Date No Ref-Primary, Physician PCP - General 02/23/14 documented as of this encounter
--- OUTSIDE RECORDS SUMMARY | 2021-10-01 16:51 | XMS_ITS | Encounter Summary ---
:1995 Author Organization [place] Address [facility] [place] [address] Care Team Providers Name Role Phone No Ref-Primary Primary Care Provider Reason for Referral Diagnostic Imaging Ultrasound (Routine) - Closed Specialty Diagnoses / Procedures Referred By Contact Refer red To Contact Diagnoses Encounter for supervision of normal first in first trimester Inga Ibarra DO Procedures US OB > 14 Weeks [address] [place] [address] Referral ID Status Reason Start Date Expiration Date Visits Requ ested Visits Authorized [id number] Closed 07/19/2018 07/19/2019 1 1 Reason for Visit Reason Comments Care Encounter Details Date Type Department Care Team Description 07/19/2018 Office [facility] Inga Ibarra for supervision of normal first in first trimester (Primary Dx); [facility] DO Olga Screening for raised alpha-fetoprotein l evels in amniotic fluid; [place] [address] [facility] Gastroesophageal reflux dise ase without esophagitis; [address] 17 weeks gestation of [place], [place] [address] [address] [place] [phone] (Work) [phone] Social History Tobacco Use Types Packs/Day Years Used Date Never Smoker Smokeless Tobacco: Never Used Alcohol Use Standard Drinks/Week Comments No 0 (1 standard drink = 0.6 oz pure alcoho l) Sex Assigned at Date Recorded Female 10/01/2020 10:47 AM CDT documented as of this encounter Last Filed Vital Signs Vital Sign Reading Time Taken Comments Blood Pressure 96/64 07/19/2018 8:47 AM CDT Pulse - - Temperature - - Respiratory Rate - - Oxygen Saturation - - Inhaled Oxygen Concentration - - Weight 74.4 kg (164 lb) 07/19/2018 8:47 AM CDT Height - - Body Mass Index 30 06/03/2018 8:38 AM CDT documented in this encounter Patient Instructions Patient InstructionsMastersInga DO - 07/19/2018 8:50 AM CDT -Start Zantac 75mg twice daily. May increase to 150mg twice daily if needed. documented in this encounter Progress Notes Inga Ibarra DO - 07/19/2018 8:50 AM CDT No loss of fluid/vaginal bleeding/regular contractions. + FM Overall doing a bit better. Taking tums for reflux. Has hx of hip pain, discovered when was younger. 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 Has been getting worse as goes. -GERD. Start zantac. Discussed lifestyle/diet factors. -Anatomy US 20wk -Hip pain. Referred to PDR back program - Labor precautions. F/U 3wk Inga Ibarra DO documented in this encounter Plan of Treatment Not on filedocumented as of this encounter Procedures Procedure Name Priority Date/Time Associated Comments Diagnosis ALPHA FETOPROTEIN Routine 07/19/2018 8:56 Screening for Resul ts for this MATERNAL SCREEN AM CDT raised procedure ar e in alpha-fetoprotein the result s levels in amniotic section. fluid documented in this encounter Results US OB > 14 Weeks (08/13/2018 2:33 PM CDT) Anatomical Region Laterality Modality Abdomen/Pelvis Ultrasound Specimen (Source) Anatomical Location Collection Method / Collectio n Time Received Time / Laterality Volume Narrative 08/19/2018 1:10 PM CDT Obstetrical Ultrasound Report OB U/S ? Survey - Transabdominal ??[facility] Referring Provider: Dr. Inga Ibarra Transition Lead: Dian Sam Indication: ?? Anatomy Survey ?? Dating (mm/dd/yyyy): LMP: Patient's last menstrual period was 03/21/2018. ?EDC: ?? Estimated Date of Delivery: Dec 26, 2018 ?GA by LMP: ? 20w5d ?? Current Scan On: 08/13/18 ?EDC: ??12/29/18 ?GA by Current Scan: ? 20w2d The calculation of the gestational age b y current scan was based on BPD, HC, AC and FL. Anatomy Scan: Delarosa gestation. Biometry: BPD 4.82 cm 20w4d HC [...] may be present but not d ectected. Inga Ibarra, DO ? Inga Ibarra DO IMG US ORDERABLES AFP Maternal Screen, Serum (07/19/2018 8:56 AM CDT) [facility] gist Method Time Signature Pt Date of 1995 07/19/2018 [facility] 9:01 AM CDT [facility] Patient Weight 164 07/19/2018 [facility] 9:01 AM CDT [facility] Weight Units LBS 07/19/2018 [facility] 9:01 AM CDT [facility] Due Date 12/26/2018 07/19/2018 [facility] 9:01 AM CDT [facility] [place] Dating Method LMP 07/19/2018 [facility] 9:01 AM CDT [facility] [place] Last Mens Period 03/21/2018 07/19/2018 [facility] 9:01 AM CDT [facility] [place] Number of Fetuses DELAROSA 07/19/2018 [facility] 9:01 AM CDT [facility] [place] Monochorionic No 07/19/2018 [facility] Twins 9:01 AM CDT [facility] Race of Mother 07/19/2018 [facility] 9:01 AM CDT [facility] Diabetic at No 07/19/2018 [facility] Conception 9:01 AM CDT [facility] [place] Smoking Status No 07/19/2018 [facility] 9:01 AM CDT [facility] Valproic/Carbamaze No 07/19/2018 [facility] pine Status 9:01 AM CDT [facility] [place] [place] Fam History Of NTD No 07/19/2018 [facility] 9:01 AM CDT [facility] Repeat Specimen No 07/19/2018 [facility] 9:01 AM CDT [facility] [place] Alpha Feto Protein 36 ng/mL 07/20/2018 [facility] 4:48 PM CDT [facility] [place] [place] MoM for AFP 1.00 07/20/2018 [facility] 4:48 PM CDT [facility] [place] AFP Interpretation Screen Neg 07/20/2018 [facility] 4:48 PM CDT [facility] Comment: (Note) INTERPRETATION: SCREEN NEGATIVE for open spina bifida ? Neural Tube Defects (NTD) ?? Negative ? Pre-Test ? Post-Test ? Cutoff ? Neural Tube Defects Risks ?? 1:1030 ? < 1:02490 ?1:250 ? Comments: ? The risk of an open neural tube defect i s less than the screening cut-off. Test developed and characteristics deter mined by [email or web address]. See Compliance Statement B : [employer] Maternal Age [age] 21[age]0 yr 07/20/2018 4:48 PM CDT [facility] [place] [facility] Patient Weight 164.0 lbs. 07/20/2018 4:48 PM CDT [facility] Estimated Due Date SEE NOTE 07/20/2018 4:48 PM C DT [facility] [place] Comment: (Note) Results for Estimated Due Date: 12-26-18 Gestational Age 17 wks, 1 days 07/20/2018 4:48 PM [facility] [place] Dating Other 07/20/2018 4:48 PM [facility] [place] Num of Fetuses [place] 07/20/2018 4:48 PM [facility] [place] Maternal Race Nonblack 07/20/2018 4:48 PM [facility] [place] Insulin Diabetic No 07/20/2018 4:48 PM [facility] [place] Smoking Status No 07/20/2018 4:48 PM [facility] [place] Fam History of NTD No 07/20/2018 4:48 PM [facility] [place] [facility] [place] Specimen Iteration SEE NOTE 07/20/2018 4:48 PM [facility] [place] Comment: (Note) Initial sample Performed by [email or web address], [address] [place] [id number] [email or web address], Cesar Cortez MD, Lab. Director Specimen Anatomical Collection Method Collection Time Receive d Time (Source) Location / / Volume Laterality Blood specimen 07/19/2018 8:56 9 (specimen) AM CDT 8:57 AM CDT Inga Espinoza Masters DO LAB - BLOOD ORDERABLES Performing Organization Address City/State/ZIP Code Phon e Number [facility] [address] [place] [address] [phone] [facility] 100 documented in this encounter Visit Diagnoses Diagnosis Encounter for supervision of normal firs t in first trimester - Primary Supervision of normal first Screening for raised alpha-fetoprotein l evels in amniotic fluid Gastroesophageal reflux disease without esophagitis Esophageal reflux 17 weeks gestation of state, incidental Encounter for supervision of normal firs t in first trimester Supervision of normal first documented in this encounter Care Teams Ornamental Metal Erector Relationship Specialty Start Date End Date No Ref-Primary, Physician PCP - General 02/23/14 documented as of this encounter
--- OUTSIDE RECORDS SUMMARY | 2021-10-01 16:51 | XMS_ITS | Encounter Summary ---
:1995 Author Organization [place] Address [address] [place] [address] Care Team Providers Name Role Phone No Ref-Primary Primary Care Provider Olga Ibarra DO Unavailable Tray Lucas MD Unavailable Deandre Ramos APRN CN Unavailable Olga Ibarra DO Unavailable Reason for Visit Reason Comments Wound Infection 4 days ago-long board/ Encounter Details Date Type Department Care Team Description 07/02/2016 Office Visit - [facility] Patito Ivy iaale injury [facility] UMESH FariasN without inf ection [facility] [address] [place] [address] Social History Tobacco Use Types Packs/Day Years [...] - Inhaled Oxygen Concentration - - Weight 59.8 kg (131 lb 14.4 oz) 07/02/2016 9:36 AM CDT Height 158.1 cm (5' 2.25) 07/02/2016 9:36 AM CDT Body Mass Index 23.93 07/02/2016 9:36 AM CDT Body Mass Index Percentile 74.47 % 07/02/2016 9:36 AM CDT Growth Chart: [facility] (Girls, 2-20 Years) documented in this encounter Progress Notes Dinora Ivy, VAUGHN RESIDENTIAL COORDINATOR - 07/02/2016 9:30 AM CDT Office Visit - Follow Up Ava Parker 20 y.o. female Date of Visit: 07/02/2016 Chief Complaint Patient presents with ??? Wound Infection 4 days ago-long board/ Assessment and Plan 1. Superficial injury without infection Wound was cleansed with warm water and topical antibiotic was applied to the wound surface and a nonadhesive dressing was applied. Patient was instructed to change dressing daily and to monitor for any signs of infection which includes redness, warmth and swelling. Follow up with PCP in 7 days. History of Present Illness This 20 y.o. old female presents to the clinic for evaluation of a wound she sustained from long boarding 4 days ago. She reports that she has been dressing the wound at home but she felt that the wound was infected so she decided to come to the clinic to have it evaluated. She denied fever, chills, nausea and vomiting. Review of Systems: A comprehensive review of systems was negative except as noted. Medications, Allergies and Problem List Reviewed and updated Physical Exam General Appearance: Well groomed BP 108/70 Pulse 72 Ht 5' 2.25 (1.581 m) Wt 131 lb 14.4 oz (59.8 kg) LMP 07/01/2016 SpO2 98% BMI 23.93 kg/m2 Superficial epidermal wound on left hip area measuring abut 8 by 7 cm. Surrounding skin is intact and no sign of infection. Additional Information Current Outpatient Prescriptions Medication Sig Dispense Refill ??? albuterol (PROAIR HFA) 90 mcg/actuation inhaler Inhale 2 puffs every 6 (six) hours as needed forwheezing. ??? budesonide-formoterol (SYMBICORT) 80-4.5 mcg/actuation inhaler Inhale 2 puffs 2 (two) times a day. ??? EPINEPHrine (EPIPEN 2-ISABELLE) 0.3 mg/0.3 mL atIn TAKE DIRECTED FOR ALLERGIC REACTION 3 Pre-filled Pen Syringe 0 ??? desogestrel-ethinyl estradiol (RECLIPSEN, 28,) 0.15-0.03 mg per tablet TAKE ONE TABLET BY MOUTH EVERY DAY 84 tablet 4 No current facility-administered medications for this visit. Allergies Allergen Reactions ??? Manatee Seed ??? Cat Hair Std Allergenic Ext ??? Cockroach ??? House Dust ??? Peanut Shortness Of Breath Social History Substance Use Topics ??? Smoking status: Never Smoker ??? Smokeless tobacco: Never Used ??? Alcohol use None Time: total time spent with the patient was 25 minutes of which >50% was spent in counseling and coordination of care Dinora Ivy CNP documented in this encounter Plan of Treatment Not on filedocumented as of this encounter Visit Diagnoses Diagnosis Superficial injury without infection Other and unspecified superficial injury of other, multiple, and unspecified sites, without mention of infection documented in this encounter Additional Health Concerns Infection Onset Date Last Indicated Resolved Time Rule Out COVID-19 12/17/2019 12/17/2019 12/18/2019 6: 16 PM CDT documented as of this encounter Care Teams Medicare Compliance Auditor Relationship Specialty Start Date End Date No Ref-Primary, Physician PCP - General 02/23/14 sInga DO Assigned OBGYN Provider 01/06/20 06/09/20 [address] [place] [id number] Dottie Lucas MD Assigned OBGYN Provider 06/10/20 06/16/20 [address] [place] [address] Elva Ramos APRN CNM Assigned OBGYN Provider 07/01/20 11/10/20 [address] [place] [id number] s, Inga Espinoza DO Assigned OBGYN Provider 06/17/20 06/30/20 [address] [place] [id number] documented as of this encounter
--- OUTSIDE RECORDS SUMMARY | 2021-10-01 16:51 | XMS_ITS | Encounter Summary ---
:1995 Author Organization [place] Address [address] [place] [address] Care Team Providers Name Role Phone No Ref-Primary Primary Care Provider Olga Ibarra DO Unavailable Tray Lucas MD Unavailable Deandre Ramos APRN Unavailable Olga Ibarra DO Unavailable Reason for Visit Reason Comments Patient Request Encounter Details Date Type Department Care Team Description 07/02/2016 Communication - [facility] Centralized Kaylee Mahan Pat ient Request [facility] Scheduling RN [address] [place] [address] Social History Tobacco Use Types [...] documented as of this encounter Care Teams Correctional Case Manager Relationship Specialty Start Date End Date No Ref-Primary, Physician PCP - General 02/23/14 Inga Ibarra DO Assigned OBGYN Provider 01/06/20 06/09/20 [address] [place] [id number] Dottie Lucas MD Assigned OBGYN Provider 06/10/20 06/16/20 [address] [place] [address] Elva Ramos APRN CNM Assigned OBGYN Provider 07/01/20 11/10/[address] [place] [address] Inga Ibarra DO Assigned OBGYN Provider 06/17/20 06/30/20 [address] [place] [address] documented as of this encounter
--- OUTSIDE RECORDS SUMMARY | 2021-10-01 16:51 | XMS_ITS | Encounter Summary ---
:1995 Author Organization [place] Address [facility] [place] [address] Care Team Providers Name Role Phone No Ref-Primary Primary Care Provider Reason for Visit Reason Onset Date Comments Medication Request 07/05/2018 Encounter Details Date Type Department Care Team Description 07/05/2018 Telephone [facility] Le Maya Medic ation Request [facility] [address] [place] [address] [address] [place] [address] [place] [address] [phone] Social History Tobacco Use Types Packs/Day Years Used Date Never Smoker Smokeless Tobacco: Never Used Alcohol Use Standard Drinks/Week Comments No 0 (1 standard drink = 0.6 oz pure alcoho l) Sex Assigned at Date Recorded Female 10/01/2020 10:47 AM CDT documented as of this encounter Miscellaneous Notes Telephone Encounter - Nancy Hanley RN - 07/06/2018 12:32 PM CDT Pt states pharmacy did not receive Rx. Resent. Pt informed. Telephone Encounter - Nancy Hanley RN - 07/05/2018 10:39 AM CDT Spoke to pt. She states insurance will cover her PNV. Requesting refill of vitamins she is currentlytaking. Rx sent. Telephone Encounter - Marilynn Wong - 07/05/2018 9:20 AM CDT Pt called asking for an rx refill of pills she has been taking. Pt stated were previously given to her elsewhere. Please return call to pt at home # and ok to LM on vm if pt is unable to answer Addendum Note - Nancy Hanley RN - 07/05/2018 9:20 AM CDT Addended by: NANCY HANLEY on: 07/06/2018 12:34 PM Modules accepted: Orders documented in this encounter Plan of Treatment Not on filedocumented as of this encounter Visit Diagnoses Diagnosis - Primary documented in this encounter Care Teams Insurance Coordinator Relationship Specialty Start Date End Date No Ref-Primary, Physician PCP - General 02/23/14 documented as of this encounter
--- OUTSIDE RECORDS SUMMARY | 2021-10-01 16:52 | XMS_ITS | Encounter Summary ---
:1995 Author Organization [place] Address [address] [place] [address] Care Team Providers Name Role Phone No Ref-Primary Primary Care Provider Olga Ibarra DO Unavailable Tray Lucas MD Unavailable Deandre Ramos APRN Unavailable Olga Ibarra DO Unavailable Reason for Visit Reason Comments Other Medication check up Encounter Details Date Type Department Care Team Description 05/18/2014 Office Visit - [facility] Yu Pritchett MD [facility] [address] [place] [address] [place] [address] Oral contraceptive [facility] Provider, Historical use [place] [address] [facility] [address], [facility] [address] [place] [address] Social History Tobacco Use Types Packs/Day [...] - Inhaled Oxygen Concentration - - Weight 67.4 kg (148 lb 8 oz) 05/18/2014 3:45 PM [employer] Height 155.6 cm (5' 1.25) 05/18/2014 3:45 PM [employer] Body Mass Index 27.83 05/18/2014 3:45 PM [employer] Body Mass Index Percentile 93.10 % 05/18/2014 3:[address] Growth Chart: [facility] (Girls, 2-20 Years) documented in this encounter Progress Notes Historical Provider - 05/18/2014 3:44 PM CST Date: 05/18/2014 Assessment: This is a 18 y.o.female who presents in a request for refill of her oral contraceptives. She is doing well. 1. Oral contraceptive use desogestrel-ethinyl estradiol (RECBLAKE, 28,) 0.15- 30 mg-mcg per tablet Plan: Her oral contraceptives were refilled. We should continue to see her yearly for clinic visits. Follow up as needed otherwise. Subjective: This is a 18 y.o.female who presents at our request for evaluation on oral contraceptives. They were started in March 2013. She reports that she has been doing well on them, with regular light menses and no side effects. She is not sexually active. She declines STD screening today.Her current antidepressant is Lexapro which was just increased to 30 mg today. She sees Peter Albarado who is a nurse practitioner who specializes in teenage mental illness. They were unable to get her an appointment with a psychiatrist since the waiting list was so long. Neither she nor her mother have any concerns about her health otherwise today. Objective: BP 92/58 Pulse 60 Resp 14 Ht 5' 1.25 (1.556 m) Wt 148 lb 8 oz (67.359 kg) BMI 27.82 kg/m2 Physical Exam: She is alert, cheerful, in no distress. Thyroid is normal, and nonenlarged, and without palpable masses. No other cervical masses. Heart has a regular rate and rhythm without murmur,rub, or gallop. Lungs are clear. Abdomen is benign without palpable masses or hepatosplenomegaly. Yu Pritchett M.D. documented in this encounter Plan of Treatment Not on filedocumented as of this encounter Visit Diagnoses Diagnosis Oral contraceptive use Surveillance of previously prescribed co ntraceptive pill documented in this encounter Additional Health Concerns Infection Onset Date Last Indicated Resolved Time Rule Out COVID-19 12/17/2019 12/17/2019 12/18/2019 6: 16 PM CDT documented as of this encounter Care Teams Team Coordinator Relationship Specialty Start Date End Date No Ref-Primary, Physician PCP - General 02/23/14 sInga DO Assigned OBGYN Provider 01/06/20 06/09/[address] [place], [place] [id number] Dottie Lucas MD Assigned OBGYN Provider 06/10/20 06/16/[address] [place], [place] [address] Elva Ramos APRN CNM Assigned OBGYN Provider 07/01/20 11/10/[address] [place], [place] [address] Inga Ibarra DO Assigned OBGYN Provider 06/17/20 06/30/[address] [place], [place] [address] documented as of this encounter
--- OUTSIDE RECORDS SUMMARY | 2021-10-01 16:52 | XMS_ITS | Encounter Summary ---
:1995 Author Organization [place] Address [address] [place] [address] Care Team Providers Name Role Phone No Ref-Primary Primary Care Provider Olga Ibarra DO Unavailable Tray Lucas MD Unavailable Deandre Ramos APRNM Unavailable Ogla Ibarra DO Unavailable Encounter Details Date Type Department Care Team Description 01/12/2014 Records - [facility] MRI Cornell Somers in in soft tissues D, DO of limb [facility] [address] [place], [place] [id number] Social History Tobacco Use Types Packs/Day Years Used Date Never Assessed Sex Assigned at Date Recorded Female 10/01/2020 [...] Name Priority Date/Time Associated Diagnosis Comme nts MR FOOT LEFT W/O Routine 01/12/2014 8:59 AM Pain in soft tiss ues Results for this CONTRAST CDT of limb procedure are i n the results section. documented in this encounter Results MR Foot Left w/o Contrast (01/12/2014 8:59 AM CDT) Anatomical Region Laterality Modality Left Foot, SUBRAD MR MSK, UMP MR MSK, RAD MR Other Specimen (Source) Anatomical Location Collection Method / Collectio n Time Received Time / Laterality Volume Impressions 01/12/2014 9:46 AM CDT CONCLUSION: Postoperative change of left Lisfranc li gament reconstruction, without gross abnormality. Recommend correlation with weightbearing radiographs. Narrative 01/12/2014 9:46 AM CDT MRI LEFT FOREFOOT WITHOUT CONTRAST 01/12/2014 8:59 AM INDICATION: Midfoot pain. TECHNIQUE: Routine MRI of the forefoot w ithout contrast. MR-compatible marker placed at the site of pain. This overlies the dorsal aspect of the Lisfranc joint. COMPARISON: Nonweightbearing radiographs of the left foot dated 12/16/2013. FINDINGS: Tracks within the medial cunei form and second metatarsal base present, Lisfranc ligamentous reconstruction. Metal artifact degrades evaluation of this region. There is a suggestion of an intac t graft crossing along these tracks, whi ch is not well visualized. The alignment on these nonweightbearing images is normal. No associated soft tissue or osseous edema in this region. This is overlied by the MR-compatible marker, which lies along the dorsal aspect of the foot. The remainder the osseous marrow signal is normal. Procedure Note Provider, Historical - 08/18/2020Formatt ing of this note might be different from the original. MRI LEFT FOREFOOT WITHOUT CONTRAST 01/12/2014 8:59 AM INDICATION: Midfoot pain. TECHNIQUE: Routine MRI of the forefoot w ithout contrast. MR-compatible marker placed at the site of pain. This overlies the dorsal aspect of the Lisfranc joint. COMPARISON: Nonweightbearing radiographs of the left foot dated 12/16/2013. FINDINGS: Tracks within the medial cunei form and second metatarsal base present, Lisfranc ligamentous reconstruction. Metal artifact degrades evaluation of this region. There is a suggestion of an intact graft crossing along these tracks, which is no t well visualized. The alignment on these nonweightbearing images is normal. No associated soft tissue or osseous edema in this region. This is overlied by the MR-compatible marker, which lies along the dorsal aspect of the foot. The remainder the osseous marrow signal is normal. IMPRESSION: CONCLUSION: Postoperative change of left Lisfranc li gament reconstruction, without gross abnormality. Recommend correlation with weightbearing radiographs. Cornell Somers DO IMG MRI ORDERABLES documented in this encounter Visit Diagnoses Diagnosis Pain in soft tissues of limb Pain in limb documented in this encounter Additional Health Concerns Infection Onset Date Last Indicated Resolved Time Rule Out COVID-19 12/17/2019 12/17/2019 12/18/2019 6: 16 PM CDT documented as of this encounter Care Teams Winch Operator Relationship Specialty Start Date End Date No Ref-Primary, Physician PCP - General 02/23/14 Inga Ibarra DO Assigned OBGYN Provider 01/06/20 06/09/[address] [place], [place] [address] Dottie Lucas MD Assigned OBGYN Provider 06/10/20 06/16/[address] [place], [place] [address] Elva Ramos APRN CNM Assigned OBGYN Provider 07/01/20 11/10/[address] [place], [place] [address] Inga Ibarra DO Assigned OBGYN Provider 06/17/20 06/30/[address] [place], [place] [id number] documented as of this encounter
--- OUTSIDE RECORDS SUMMARY | 2021-10-01 16:52 | XMS_ITS | Encounter Summary ---
:1995 Author Organization [place] Address [address] [place] [address] Care Team Providers Name Role Phone No Ref-Primary Primary Care Provider Olga Ibarra DO Unavailable Tray Lucas MD Unavailable Deandre Ramos APRN Unavailable Olga Ibarra DO Unavailable Reason for Visit Reason Comments Other Encounter Details Date Type Department Care Team Description 04/03/2014 Communication - [facility] Yu Pritchett MD [facility] [address] [facility] [place] [address] Other [facility] [place] Provider, Historical [address] [facility] S, [address] [place] [address] Social History Tobacco Use [...] documented as of this encounter Care Teams Facilities Coordinator Relationship Specialty Start Date End Date No Ref-Primary, Physician PCP - General 02/23/14 sInga DO Assigned OBGYN Provider 01/06/20 06/09/[address] [place] [id number] Dottie Lucas MD Assigned OBGYN Provider 06/10/20 06/16/[address] [place], [place] [address] Elva Ramos APRN CNM Assigned OBGYN Provider 07/01/20 11/10/[address] [place] [address] Inga Ibarra DO Assigned OBGYN Provider 06/17/20 06/30/[address] [place], [place] [address] documented as of this encounter
--- OUTSIDE RECORDS SUMMARY | 2021-10-01 16:52 | XMS_ITS | Encounter Summary ---
:1995 Author Organization [place] Address [address] [place] [address] Care Team Providers Name Role Phone No Ref-Primary Primary Care Provider Olga Ibarra DO Unavailable Tray Lucas MD Unavailable Deandre Ramos APRN Unavailable Olga Ibarra DO Unavailable Reason for Visit Reason Comments Urinary Frequency feels like she has to go, bu t then its like a drop or a tiny bit Encounter Details Date Type Department Care Team Description 02/12/2016 Office Visit - [facility] Ana Maria Ashley UTI (u rinary tract infection); [facility] Sherry Schultz MD Chlamydia [address]ael [address] [place], [place] [address] [address] [place], [place] [phone] (Work) [phone] Social History Tobacco Use Types Packs/Day Years [...] - Inhaled Oxygen Concentration - - Weight 61.2 kg (134 lb 14.4 oz) 02/12/2016 6:29 PM [facility] IN Height - - Body Mass Index 24.67 09/04/2015 10:16 PM CDT Body Mass Index Percentile 79.98 % 02/12/2016 6:29 PM CLOTHER IN Growth Chart: CDC (Girls, 2-20 Years) documented in this encounter Progress Notes Ana Maria Ashley MD - 02/12/2016 6:10 PM CST [facility] Acute Visit Note: S: Ava is an 20 yo female with increased urinary frequency and urgency for the past 2 1/2 weeks. She has been urinating more frequently and has trouble keeping the urine in and getting to the bathroomon time. She has had some episodes of urinary leakage. These symptoms occur during the day and at night, but are most pronounced when she is on her feet-at work at at home. She has had no pain with herurination or blood in her urine. She has not had fever, vomiting, abdominal pain, or diarrhea. She stools every day, soft normal caliber stools. She has also been having vaginal drainage that is more yellow and thicker than her usual drainage and that smells different, but no vaginal bleeding or pain. She is currently sexually active and last had intercourse 3 weeks ago with a male partner, she did use a condom at that time. Her symptoms started shortly after that episode. She does take daily OCPs but no other medications. She has had 1 prior UTI and 1 prior yeast infection but no STDs in the past.She has had 3 male partners in the last year and uses a condom most of the time. Her period is duenext week. O: Vitals: 02/12/16 1829 Pulse: 70 Temp: 98.6 ??F (37 ??C) 134 lb 14.4 oz (61.2 kg) (68 %, Z= 0.47, Source: [facility] 2-20 Years) Gen: Alert, well-appearing, well-hydrated Resp: Clear lungs with normal respiratory effort CV: Regular rate and rhythm, no murmurs Abd: Soft, non-tender, nondistended, no masses or organomegaly : Alexander 5 female, no vulvar redness or lesions, moderate amount of thick white discharge from itroitus. Swabs obtained for wet prep and GC probe Skin: Warm, dry, no rashes Urinalysis is performed (please see in chart) Urine culture results pending Urine test is negative Wet prep is performed and is negative G/C vaginal swab results pending (all results discussed with patient at time of visit) A: 20 yo sexually active female with increased urinary frequency. Urinalysis consistent with urinarytract infection. P: Will treat with Bactrim as prescribed. Instructed to drink plenty of fluids to help fluid bladder/urethra. Urine sent for culture-will follow up if antibiotics need to be discontinued/changed. Will also contact patient by cell phone with GC results are available. Counseled patient that, while I'm happy she's continuing to use her oral contraceptives and usually uses a condom, she needs to use a condom 100% of the time, regardless of who her partner is. Anticipate that treatment will resolve UTI symptoms, but counseled to contact clinic if symptoms worsen or fail to improve. A total of 40 minutes was spent on encounter, greater than 50% of which was in counseling and coordination of care. Ana Maria Ashley MD Addendum: GC results returned positive for chlamydia. Patient was contacted on her cell phone and informed of the positive results. Prescription for azithromycin 1000 mg x one dose was sent to pharmacy on file. Patient instructed on signs and side effects of not treating chlamydia, encouraged to take this dose and to inform all sexual partners that they need to be tested and treated if positive. Reiterated need for condom use 100% of the time. She acknowledged understanding and agrees with plan. Will contact her primary clinic if she has additional questions or concerns. Ana Maria Ashley MD HER IN documented in this encounter Miscellaneous Notes Addendum Note - Ana Maria Ashley MD - 02/14/2016 4:53 PM CST Addendum Note by Ana Maria Ashley MD at 02/14/2016 4:53 PM Author: Ana Maria Ashley MD Service: -- Author Type: Physician Filed: 02/14/2016 4:53 PM Encounter Date: 02/12/2016 Status: Signed Ore Charger: Ana Maria Ashley MD (Physician) Addended by: ANA MARIA ASHLEY on: 02/14/2016 04:53 PM Modules accepted: Orders HER IN documented in this encounter Plan of Treatment Not on filedocumented as of this encounter Visit Diagnoses Diagnosis UTI (urinary tract infection) Urinary tract infection, site not specif ied Chlamydia Other specified chlamydial infection, in conditions classified elsewhere and of unspecified site documented in this encounter Additional Health Concerns Infection Onset Date Last Indicated Resolved Time Rule Out COVID-19 12/17/2019 12/17/2019 12/18/2019 6: 16 PM CDT documented as of this encounter Care Teams Kettle Girl Relationship Specialty Start Date End Date No Ref-Primary, Physician PCP - General 02/23/14 s, Inga Espinoza DO Assigned OBGYN Provider 01/06/20 06/09/[address] [place] [address] Dottie Lucas MD Assigned OBGYN Provider 06/10/20 06/16/[address] [place], [place] [id number] Elva Ramos APRN CNM Assigned OBGYN Provider 07/01/20 11/10/[address] [place], [place] [id number] sInga DO Assigned OBGYN Provider 06/17/20 06/30/20 [address] [place], [place] [address] documented as of this encounter
--- OUTSIDE RECORDS SUMMARY | 2021-10-01 16:52 | XMS_ITS | Encounter Summary ---
:1995 Author Organization [place] Address [address] [place] [address] Care Team Providers Name Role Phone No Ref-Primary Primary Care Provider Olga Ibarra DO Unavailable Tray Lucas MD Unavailable Deandre Ramos APRN Unavailable Olga Ibarra DO Unavailable Reason for Visit Reason Comments Vomiting Encounter Details Date Type Department Care Team Description 09/03/2015 Communication - [facility] Yu Pritchett MD [facility] [address] [facility] [place] [address] Vomiting [facility] Hayden Baez Provider, Historical [address] [facility] S, [address] [place] [address] Social History Tobacco [...] documented as of this encounter Care Teams Skid Adzer Relationship Specialty Start Date End Date No Ref-Primary, Physician PCP - General 02/23/14 sInga DO Assigned OBGYN Provider 01/06/20 06/09/20 [address] [place] [id number] Dottie Lucas MD Assigned OBGYN Provider 06/10/20 06/16/20 [address] [place] [id number] Elva Ramos APRN CNM Assigned OBGYN Provider 07/01/20 11/10/[address] [place] [id number] Inga Ibarra DO Assigned OBGYN Provider 06/17/20 06/30/20 [address] [place] [id number] documented as of this encounter
--- OUTSIDE RECORDS SUMMARY | 2021-10-01 16:52 | XMS_ITS | Encounter Summary ---
:1995 Author Organization [place] Address [address] [place] [address] Care Team Providers Name Role Phone No Ref-Primary Primary Care Provider Olga Ibarra DO Unavailable Tray Lucas MD Unavailable Deandre Ramos APRN, CNM Unavailable Olga Ibarra DO Unavailable Reason for Visit Reason Comments Dizziness 6 days - brought on by quic k movement Vomiting 6 days Diarrhea 6 days Encounter Details Date Type Department Care Team Description 09/01/2015 Office Visit - [facility] Philip Daniel DO [facility] Provider, [facility] [address] [place] [address] Social History Tobacco Use Types [...] - Inhaled Oxygen Concentration - - Weight 63 kg (138 lb 12.8 oz) 09/01/2015 10:32 AM CDT Height - - Body Mass Index 25.39 06/20/2015 10:00 AM CDT Body Mass Index Percentile 84.39 % 09/01/2015 10:32 AM C DT Growth Chart: [facility] (Girls, 2-20 Years) documented in this encounter Progress Notes Philip Daniel, DO - 09/01/2015 10:50 AM CDT Subjective: Patient ID: Ava Parker is a 19 y.o. female. Chief Complaint: HPI Patient comes in for evaluation of intermittent lightheadedness and vertigo symptoms for the last 6 days. This brought on by movement of her head to the left or the right. No change with standing from a seated position. She's been a little nauseous with this and has vomited once yesterday and once a day before. She says she has had diarrhea for 6 days, but when questioning further she only had one loose stool yesterday. Patient has a history of cutting and she said she last cut about 4 months ago. Past Medical History Diagnosis Date ??? Boxer's fracture 04/27/15 Left hand. Punched a wall at school. Past Surgical History Procedure Laterality Date ??? Pr open treatment tarsometatarsal joint dislocation Description: Open Treatment Of Tarsometatarsal Dislocation; Proc Date: 06/09/2011; Comments: ORIF of Lisfranc joint, intercuneiform arthrotomy with synovectomy. Adria Butterfield DPM, [facility] [place]. No family history on file. History Substance Use Topics ??? Smoking status: Never Smoker ??? Smokeless tobacco: Never Used ??? Alcohol use: Not on file Review of Systems Objective: Visit Vitals ??? BP 102/60 (Patient Site: Right Arm, Patient Position: Sitting, Cuff Size: Adult Regular) ??? Pulse 59 ??? Temp 98.4 ??F (36.9 ??C) (Oral) ??? Wt 138 lb 12.8 oz (63 kg) ??? LMP 08/20/2015 (Exact Date) ??? SpO2 98% ??? No Physical Exam Constitutional: She is sitting comfortably. She is able to stand then sit and lie on the exam table easily without sx. HENT: Right Ear: External ear normal. Left Ear: External ear normal. Nose: Nose normal. Mouth/Throat: Oropharynx is clear and moist. Eyes: Pupils 3 mm and constrict to 2 mm symmetrically. No nystagmus with lateral gaze. Neck: Neck supple. Cardiovascular: Normal rate. Pulmonary/Chest: Effort normal. Abdominal: Soft. She exhibits no distension. There is no tenderness. There is no guarding. Skin: Skin is warm and dry. Scars on left dorsal forearm from past cutting. Small bruises on neck looks like hickies. Nursing note and vitals reviewed. Recent Results (from the past 24 hour(s)) Urinalysis-UC if Indicated Result Value Ref Range Color, UA Yellow Colorless, Yellow, Straw, Light Yellow Clarity, UA Clear Clear Glucose, UA Negative Negative Bilirubin, UA Negative Negative Ketones, UA Negative Negative Specific [place], UA 1.025 1.001 - 1.030 Blood, UA Negative Negative pH, UA 6.0 4.5 - 8.0 Protein, UA 30 mg/dL (A) Negative mg/dL Urobilinogen, UA <2.0 E.U./dL <2.0 E.U./dL, 2.0 E.U./dL Nitrite, UA Negative Negative Leukocytes, UA Negative Negative Bacteria, UA None Seen None Seen hpf RBC, UA 0-2 None Seen, 0-2 hpf WBC, UA 0-5 None Seen, 0-5 hpf Squam Epithel, UA 0-5 None Seen, 0-5 lpf Mucus, UA Many (A) None Seen lpf , Urine Result Value Ref Range Test, Urine Negative Negative Specific [place], UA 1.030 1.001 - 1.030 Assessment and Plan: Procedures The encounter diagnosis was Nausea. Nausea for the last 6 days with one episode of vomiting. Only one episode of diarrhea yesterday. This does not appear to be due to a gastroenteritis. The patient looks well hydrated and is not having any significant pain. I did not notice any nystagmus or vertigo symptoms on examination although per the patient's history she was having some mild vertigo. UA was negative as well as the test. Some of her symptoms may be due to medication causes such as Seroquel and Lexapro. However, I do not think she is experiencing serotonin syndrome. I recommended continuing with her current medications. I did suggest that she may try meclizine 25 mg once a day sparingly as this could increase the anticholinergic response of her Seroquel. Work note given and I recommended following up in the next few days if sx worsen. documented in this encounter Plan of Treatment Not on filedocumented as of this encounter Visit Diagnoses Diagnosis Nausea Nausea alone documented in this encounter Additional Health Concerns Infection Onset Date Last Indicated Resolved Time Rule Out COVID-19 12/17/2019 12/17/2019 12/18/2019 6: 16 PM CDT documented as of this encounter Care Teams Pile Driver Engineer Relationship Specialty Start Date End Date No Ref-Primary, Physician PCP - General 02/23/14 sInga DO Assigned OBGYN Provider 01/06/20 06/09/[address] [place] [address] Dottie Lucas MD Assigned OBGYN Provider 06/10/20 06/16/[address] [place], [place] [address] Elva Ramos APRN CNM Assigned OBGYN Provider 07/01/20 11/10/[address] [place], [place] [id number] sInga DO Assigned OBGYN Provider 06/17/20 06/30/[address] [place], [place] [address] documented as of this encounter
--- OUTSIDE RECORDS SUMMARY | 2021-10-01 16:52 | XMS_ITS | Encounter Summary ---
:1997 Author Organization [facility] Address [address] [place] [address] Care Team Providers Name Role Phone No Ref-Primary Primary Care Provider Olga Ibarra DO Unavailable Tray Lucas MD Unavailable Deandre Ramos APRN Unavailable Olga Ibarra DO Unavailable Reason for Visit Reason Comments Other Encounter Details Date Type Department Care Team Description 02/27/2014 [facility] Migel Lewis MD [address] [facility] [address] [facility] [address] [place] [address], [address] [place] [address] [facility] M[place]EL [place], [place] [phone] Social History Tobacco Use Types Packs/Day Years [...] of this encounter Visit Diagnoses Diagnosis Anxiety Anxiety state, unspecified documented in this encounter Additional Health Concerns Infection Onset Date Last Indicated Resolved Time Rule Out COVID-19 12/17/2019 12/17/2019 12/18/2019 6: 16 PM CDT documented as of this encounter Care Teams Art Supervisor Relationship Specialty Start Date End Date No Ref-Primary, Physician PCP - General 02/23/14 sInga DO Assigned OBGYN Provider 01/06/20 06/09/20 [address] [place] [address] [place] [id number] Dottie Lucas MD Assigned OBGYN Provider 06/10/20 06/16/20 [address] [place] [address] Elva Ramos APRN CNM Assigned OBGYN Provider 07/01/20 11/10/[address] [place] [address] Inga Ibarra DO Assigned OBGYN Provider 06/17/20 06/30/[address] [address] [place] [id number] documented as of this encounter
--- OUTSIDE RECORDS SUMMARY | 2021-10-01 16:52 | XMS_ITS | Encounter Summary ---
:1995 Author Organization [facility] Address [address] [place] [address] Care Team Providers Name Role Phone No Ref-Primary Primary Care Provider Olga Ibarra DO Unavailable Tray Lucas MD Unavailable Deandre Ramos APRN, CNM Unavailable Olga Ibarra DO Unavailable Encounter Details Date Type Department Care Team Description 01/10/2014 Records - [facility] CONVERSION Scan, Provider Social History Tobacco Use Types Packs/Day Years [...] as of this encounter Care Teams Supervisor Metal Placing Relationship Specialty Start Date End Date No Ref-Primary, Physician PCP - General 02/23/14 MastersInga DO Assigned OBGYN Provider 01/06/20 06/09/20 [address] [place] [address] Dottie Lucas MD Assigned OBGYN Provider 06/10/20 06/16/20 [address] [place] [address] Elva Ramos APRN CNM Assigned OBGYN Provider 07/01/20 11/10/20 [address] [place] [address] sInga DO Assigned OBGYN Provider 06/17/20 06/30/20 [address] [place] [address] documented as of this encounter
--- OUTSIDE RECORDS SUMMARY | 2021-10-01 16:52 | XMS_ITS | Encounter Summary ---
:1995 Author Organization [facility] Address [address] [place] [address] Care Team Providers Name Role Phone No Ref-Primary Primary Care Provider Olga Ibarra DO Unavailable Tray Lucas MD Unavailable Deandre Ramos APRN Unavailable Olga Ibarra DO Unavailable Reason for Visit Reason Comments Abdominal Pain Check umbilical pain radiati ng across abdomen, stabbing, throbbing pain x 2 weeks, worse with e xercise last night with vomiting Encounter Details Date Type Department Care Team Description 08/08/2014 Office Visit - [facility] Ch[facility]al [facility]iv[facility] Guzm[facility] MD 6935 [facility] 6936 [facility] S, [facility] [address] [facility] 100 [place], [place] MIGEL [place], [address] [place] [id number] Social History Tobacco Use Types Packs/Day Years [...] - Inhaled Oxygen Concentration - - Weight 63.2 kg (139 lb 4 oz) 08/08/2014 1:31 PM CDT Height 158.1 cm (5' 2.25) 08/08/2014 1:31 PM CDT Body Mass Index 25.26 08/08/2014 1:31 PM CDT Body Mass Index Percentile 86.01 % 08/08/2014 1:31 PM C DT Growth Chart: [facility] (Girls, 2-20 Years) documented in this encounter Progress Notes Chantal Bolivar MD - 08/13/2014 11:35 AM CDT PROGRESS NOTE 08/08/2014 SUBJECTIVE: Ava Parker is a 18 y.o. female who presents for Chief Complaint Patient presents with ??? Abdominal Pain Check umbilical pain radiating across abdomen, stabbing, throbbing pain x 2 weeks, worse with exercise last night with vomiting Patient comes in today because she's had stomach pain for at least the last 2 weeks or so. She actually has not been doing anything in soccer practice due to some stomach pain. Initially when this started to bother her she noticed that the pain was just underneath her belly button. It also seemed to be across her entire lower abdomen. Sometimes it was sharp and sometimes it was better. She did not seem to have any other symptoms associated with it and so she rested and did not participate in soccer practice as that seemed to aggravate it. About a week after that she got a cold and was dealingwith a cold and so didn't go to soccer practice. The cold seems to be better which is great so yesterday she went to soccer practice again. She notes that when she was at soccer practice yesterday she got a really bad abdominal pain back. It was so bad that she had to sit down and she feels like she is paced out for a second. She did not fall but her pain was quite bad and significant enough thatshe felt like she needed to sit down because of the overwhelming pain. She then all of a sudden felt really nauseated so she ran to the garbage can and throughout. Following this she went home and she felt funny for 2 or 3 hours but then she seemed to be fine after that. She also notes that she hasa funny sensation in the top of her forehead since yesterday. She's not sure exactly what that is either. She has not been running any fevers at all. She is eating and drinking normally. She does note that she seems to have bowel movements regular basis and to be soft. Most the time she has a bowel movement every day but sometimes she'll skip a day or 2. Today she notes that her abdominal pain seems to be okay and her head pain seems to be better than it has been. She has not vomited since yesterday after soccer practice. She has been able to eat a normal meal this morning. Patient Active Problem List Diagnosis ??? Migraine Headache ??? Overweight ??? Vocal Cord Disorder ??? Allergic Rhinitis ??? Regular Cycle Intervals Less Than 21 Days ??? Adverse Effect Of Selective Serotonin And Norepinephrine Reuptake Inhibitors ??? Open Wound Of The Face ??? Acute Tonsillitis ??? Sore Throat ??? Nausea ??? Amenorrhea ??? Major Depression, Single Episode ??? Allergy To Nuts ??? Joint Pain, Localized In The Hip ??? Muscle Weakness ??? Nausea With Vomiting ??? Anxiety Disorder NOS ??? Chronic Post-traumatic Stress Disorder ??? Acute Otitis Media ??? Foot Pain (Soft Tissue) Current Outpatient Prescriptions Medication Sig Dispense Refill ??? albuterol (PROAIR HFA) 90 mcg/actuation inhaler Inhale 2 puffs every 6 (six) hours as needed forwheezing. ??? budesonide-formoterol (SYMBICORT) 80-4.5 mcg/actuation inhaler Inhale 2 puffs 2 (two) times a day. ??? desogestrel-ethinyl estradiol (RECLIPSEN, 28,) 0.15-30 mg-mcg per tablet TAKE ONE TABLET BY MOUTH EVERY DAY 84 tablet 3 ??? EPINEPHrine (EPIPEN) 0.3 mg/0.3 mL (1:1,000) atIn Use as directed for allergic reaction. ??? escitalopram oxalate (LEXAPRO) 10 MG tablet Take 3 mg by mouth daily. ??? ibuprofen 200 mg cap Take 600 mg by mouth as needed. No current facility-administered medications for this visit. Allergies Allergen Reactions ??? Cat Hair Standard Extract ??? Cockroach ??? House Dust ??? Peanut Shortness Of Breath History reviewed. No pertinent past medical history. Past Surgical History Procedure Laterality Date ??? Pr open treatment tarsometatarsal joint dislocation Description: Open Treatment Of Tarsometatarsal Dislocation; Proc Date: 06/09/2011; Comments: ORIF of Lisfranc joint, intercuneiform arthrotomy with synovectomy. Adria Butterfiled DPM, [facility] [place]. History Smoking status ??? Never Smoker Smokeless tobacco ??? Never Used OBJECTIVE: BP 98/60 Pulse 74 Temp(Src) 98.2 ??F (36.8 ??C) Ht 5' 2.25 (1.581 m) Wt 139 lb 4 oz (63.163kg) BMI 25.27 kg/m2 Physical Exam: GENERAL APPEARANCE: A&A, NAD, well hydrated, well nourished SKIN: Normal skin turgor, no lesions/rashes HEENT: moist mucous membranes, no rhinorrhea, PERRLA, TM's clear bilaterally, Throat without significant erythema or exudate. NECK: Supple, full ROM, no significant lymphadenopathy or thyromegaly CV: RRR, no M/G/R LUNGS: CTAB ABDOMEN: soft, no masses or organomegaly, positive bowel sounds. She has tenderness over the central region of her abdomen. No rebound tenderness is appreciated. No localized tenderness is appreciated. She has global mild tenderness throughout her entire abdomen that gets a little bit worse in the central region of her abdomen. EXTREMITY: no edema NEURO: no gross deficits LABS: Recent Results (from the past 240 hour(s)) HM2(CBC W/O DIFFERENTIAL) Result Value Ref Range WBC 7.1 4.5-13.0 thou/uL RBC 4.46 4.10-5.10 mill/uL Hemoglobin 12.6 12.0-16.0 g/dL Hematocrit 37.6 33.0-51.0 % MCV 84 78-102 fL MCH 28.3 25.0-35.0 pg MCHC 33.6 32.0-36.0 g/dL RDW 11.9 11.5-14.0 % Platelets 255 140-440 thou/uL MPV 9.2 7.0-10.0 fL URINALYSIS, MACRO REFLEX MICRO Result Value Ref Range Color, UA Yellow Colorless, Yellow, Straw, Light Yellow Clarity, UA Clear Clear Glucose, UA Negative Negative Bilirubin, UA Negative Negative Ketones, UA Negative Negative Specific [place], UA 1.015 1.002-1.030 Blood, UA Negative Negative pH, UA 6.0 4.5-8.0 Protein, UA Negative Negative mg/dL Urobilinogen, UA 0.2 E.U./dL 0.2 E.U./dL, 1.0 E.U./dL Nitrite, UA Negative Negative Leukocytes, UA Trace (*) Negative BETA-HCG, QUALATATIVE, URINE Result Value Ref Range Test, Urine Negative Negative Specific [place], UA 1.015 1.001-1.030 COMPREHENSIVE METABOLIC PANEL Result Value Ref Range Sodium 141 136-145 mmol/L Potassium 4.1 3.5-5.0 mmol/L Chloride 106 98-107 mmol/L CO2 22 22-31 mmol/L Anion Gap, Calculation 13 5-18 mmol/L Glucose 99 70-125 mg/dL BUN 13 9-18 mg/dL Creatinine 0.80 0.60-1.10 mg/dL GFR MDRD Af Amer >60 mL/min/1.73m2 GFR MDRD Non Af Amer >60 mL/min/1.73m2 Bilirubin, Total 0.4 0.0-1.0 mg/dL Calcium 9.8 8.5-10.5 mg/dL Protein, Total 7.4 6.0-8.0 g/dL Albumin 3.8 3.5-5.0 g/dL Alkaline Phosphatase 74 50-364 U/L AST 15 0-40 U/L ALT 13 0-45 U/L Xr Abdomen Flat And Upright 08/08/2014 XR ABDOMEN FLAT AND UPRIGHT08/08/2014 2:15 PMINDICATION: Abdominal pain.COMPARISON: None.FINDINGS: Right diaphragm is not completely included on the upright view. There is a normal appearance of the abdominal gas pattern and soft tissues. There is no evidence for bowel obstruction, or mass. No abnormal calcifications. There is a moderate amount of stool throughout normal caliber colon andrectum. The imaged portions of the lung bases are clear.Conclusion: Negative abdomen. Cause for painis not demonstratedThis report was electronically interpreted by: Dr. Adán Reene MD ON 08/08/2014 at 14:52 ASSESSMENT/PLAN: Primary Diagnosis: Abdominal pain [789.00] 1. Abdominal pain - HM2(CBC w/o Differential) - Urinalysis - , Urine - Comprehensive Metabolic Panel - XR Abdomen Flat and Upright; Future Patient overall seems to be doing okay right now. I suspect that her abdominal pain is due to constipation given the fact that there was a lot of stool noted on her x-ray today. Her CBC urinalysis were both normal. We'll contact her with results of the metabolic panel when he returns. Did explain to mom and patient that I suspect that she has lots of stool in her abdomen and this was causing her abdominal pain. I have suggested that she try to get herself cleared out completely with the use of a suppository enema or magnesium citrate and then to start on MiraLAX on a daily basis to try to promote regularity of her stool patterns and to prevent this from happening again. They understood the instructions and will go home and try to get his cleared out of stool and then will start on the MiraLAX on a daily basis. I told him to start with the regular adult dose of MiraLAX and then to go up ordown depending on what kind of a response she has to this. If they have additional questions or concerns, should certainly let me know. Total time spent with patient was at least 25 minutes, of whichgreater than fifty percent was spent in counselling and coordination of care of the above medical problems. Chantal Bolivar MD documented in this encounter Plan of Treatment Not on filedocumented as of this encounter Visit Diagnoses Diagnosis Abdominal pain Abdominal pain, unspecified site documented in this encounter Additional Health Concerns Infection Onset Date Last Indicated Resolved Time Rule Out COVID-19 12/17/2019 12/17/2019 12/18/2019 6: 16 PM CDT documented as of this encounter Care Teams Cobol Mainframe Developer Relationship Specialty Start Date End Date No Ref-Primary, Physician PCP - General 02/23/14 sInga DO Assigned OBGYN Provider 01/06/20 06/09/20 [address] [place] [address] Dottie Lucas MD Assigned OBGYN Provider 06/10/20 06/16/20 [address] [place] [address] Elva Ramos APRN CNM Assigned OBGYN Provider 07/01/20 11/10/20 [address] [place] [address] sInga DO Assigned OBGYN Provider 06/17/20 06/30/20 [address] [place] [address] documented as of this encounter
--- OUTSIDE RECORDS SUMMARY | 2021-10-01 16:52 | XMS_ITS | Encounter Summary ---
:1997 Author Organization [facility] Address [address] [place] [address] Care Team Providers Name Role Phone No Ref-Primary Primary Care Provider Olga Ibarra DO Unavailable Tray Lucas MD Unavailable Deandre Ramos APRN Unavailable Olga Ibarra DO Unavailable Reason for Visit Reason Comments Other Encounter Details Date Type Department Care Team Description 05/16/2015 Communication - [facility] Yu Pritchett MD [facility] [address] [facility] [place] [address] Other [facility] Provider, Historical [address] [facility] S, [address] [place] [address] Social History Tobacco [...] documented as of this encounter Care Teams Body Fitter Relationship Specialty Start Date End Date No Ref-Primary, Physician PCP - General 02/23/14 sInga DO Assigned OBGYN Provider 01/06/20 06/09/[address] [place] [id number] Dottie Lucas MD Assigned OBGYN Provider 06/10/20 06/16/[address] [place], [place] [address] Elva Ramos APRN CNM Assigned OBGYN Provider 07/01/20 11/10/[address] [place] [address] Inga Ibarra DO Assigned OBGYN Provider 06/17/20 06/30/[address] [place], [place] [address] documented as of this encounter
--- OUTSIDE RECORDS SUMMARY | 2021-10-01 16:52 | XMS_ITS | Encounter Summary ---
:1997 Author Organization [facility] Address [address] [place] [address] Care Team Providers Name Role Phone No Ref-Primary Primary Care Provider Olga Ibarra DO Unavailable Tray Lucas MD Unavailable Deandre Ramos APRN Unavailable Olga Ibarra DO Unavailable Encounter Details Date Type Department Care Team Description 08/08/2014 Records - [facility] Chantal Bolivar Abdominal pain Clinic Hayden Guzmán MD 6936 [facility] 6936 [facility] [address] [facility] 100 [facility], [address] [place] [address] [phone] Social History Tobacco Use Types Packs/Day Years [...] Priority Date/Time Associated Diagnosis Comme nts XR ABDOMEN 2 VW Routine 08/08/2014 2:15 PM Abdominal pain Res ults for this CDT procedure are i n the results section. documented in this encounter Results XR Abdomen 2 Views (08/08/2014 2:15 PM CDT) Anatomical Region Laterality Modality Abdomen/Pelvis Other Specimen (Source) Anatomical Location Collection Method / Collectio n Time Received Time / Laterality Volume Narrative 08/08/2014 2:52 PM CDT XR ABDOMEN FLAT AND UPRIGHT08/08/2014 2:15 PMINDICATION: Abdominal pain.COMPARISON: None.FINDINGS: Right diaphragm is not completely included on the upright view. There is a normal appearance of the abdo levi gas pattern and soft tissues. Ther e is no evidence for bowel obstruction, or mass. No abnormal calcifications. There is a moderate amount of stool throughout normal caliber colon and rectum. The imaged portions of the lung bases are clear.Conclusion: Negative abdomen. Cause for pain is not demonstratedThis report was electronical ly interpreted by: Dr. Adán Renee MD ON 08/08/2014 at 14:52 Procedure Note Heri Renee - 08/19/2020Formatti ng of this note might be different from the original. XR ABDOMEN FLAT AND UPRIGHT08/08/2014 2:1 5 PMINDICATION: Abdominal pain.COMPARISON: None.FINDINGS: Right diaphragm is not completely included on the upright view. There is a normal appearance of the abdominal gas pattern and soft tissues. There is no evidence for bowel obstruction, or mass. No abnormal calcifications. There is a moderate amount of stool throughout normal caliber colon and rectum. The imaged portions of the lung bases are clear.Conclusion: Negative abdomen. Cause for pain is not demonstratedThis report was electronical ly interpreted by: Dr. Adán Renee MD ON 08/08/2014 at 14:52 Chantal Bolivar MD IMG DIAGNOSTIC IMAGING ORDER SHEY documented in this encounter Visit Diagnoses Diagnosis Abdominal pain Abdominal pain, unspecified site documented in this encounter Additional Health Concerns Infection Onset Date Last Indicated Resolved Time Rule Out COVID-19 12/17/2019 12/17/2019 12/18/2019 6: 16 PM CDT documented as of this encounter Care Teams Campaign Management Senior Manager Relationship Specialty Start Date End Date No Ref-Primary, Physician PCP - General 02/23/14 Inga Ibarra DO Assigned OBGYN Provider 01/06/20 06/09/[address] [place], [place] [address] Dottie Lucas MD Assigned OBGYN Provider 06/10/20 06/16/[address] [place], [place] [address] Elva Ramos APRN CNM Assigned OBGYN Provider 07/01/20 11/10/[address] [place], [place] [address] Inga Ibarra DO Assigned OBGYN Provider 06/17/20 06/30/[address] [place], [place] [address] documented as of this encounter
--- OUTSIDE RECORDS SUMMARY | 2021-10-01 16:52 | XMS_ITS | Encounter Summary ---
:1997 Author Organization [facility] Address [facility] [place] [address] Care Team Providers Name Role Phone No Ref-Primary Primary Care Provider Olga Ibarra DO Unavailable Tray Lucas MD Unavailable Deandre Ramos APRN Unavailable Olga Ibarra DO Unavailable Reason for Visit Reason Comments Pharyngitis 2-3 days/ also had a cough/ had wisdom teeth out on Thu Encounter Details Date Type Department Care Team Description 01/27/2016 Office Visit - [facility] Farooq Hawkins MD Sore throat [address] [place] [address] [place], [place] [phone] [address] (Work) [phone] Social History Tobacco Use Types Packs/Day Years [...] - Inhaled Oxygen Concentration - - Weight 59 kg (130 lb) 01/27/2016 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 (Girls, 2-20 Years) documented in this encounter Progress Notes Farooq Hawkins MD - 01/27/2016 11:39 AM CST Results discussed during visit. H SCIENCES PROFESSOR Farooq Hawkins MD - 01/27/2016 9:29 AM CST Chief Complaint Patient presents with ??? Sore Throat 2-3 days/ also had a cough/ had wisdom teeth out on Thu HPI: Patient is here for 2-3 days of mild sore throat, with a cough. No fever, nasal symptoms, ear pain, chest pain, shortness of breath. She has exercise induced asthma. No home therapy so far. She had 4 wisdom teeth pulled on Thursday. ROS: Pertinent ROS noted in HPI. Allergies Allergen Reactions ??? [place] Seed ??? Cat Hair Std Allergenic Ext ??? Cockroach ??? House Dust ??? Peanut Shortness Of Breath Patient Active Problem List Diagnosis ??? Migraine Headache ??? Overweight ??? Vocal Cord Disorder ??? Allergic Rhinitis ??? Regular Cycle Intervals Less Than 21 Days ??? Adverse Effect Of Selective Serotonin And Norepinephrine Reuptake Inhibitors ??? Amenorrhea ??? Major Depression, Single Episode ??? Allergy To Nuts ??? Joint Pain, Localized In The Hip ??? Muscle Weakness ??? Anxiety Disorder NOS ??? Chronic Post-traumatic Stress Disorder ??? Foot Pain (Soft Tissue) No family history on file. Social History Social History ??? Marital status: Single Spouse name: N/A ??? Number of children: N/A ??? Years of education: N/A Occupational History ??? Not on file. Social History Main Topics ??? Smoking status: Never Smoker ??? Smokeless tobacco: Never Used ??? Alcohol use Not on file ??? Drug use: Not on file ??? Sexual activity: Not on file Other Topics Concern ??? Not on file Social History Narrative UTD on immunizations. Objective: Vitals: 01/27/16 0922 BP: 110/58 Pulse: 79 Resp: 16 Temp: 98.3 ??F (36.8 ??C) SpO2: 98% Gen: NAD HEENT: normal oropharynx, gums, teeth. Normal TMs and canals Neck: no significant adenopathy CV: RRR, no M, R, G Pulm: CTAB, normal effort Recent Results (from the past 24 hour(s)) Rapid Strep A Screen-Throat Result Value Ref Range Rapid Strep A Antigen No Group A Strep detected No Group A Strep detected Sore throat - Rapid Strep A Screen-Throat - Group A Strep, RNA Direct Detection, Throat Negative RST, pending final test. Supportive cares as directed. H SCIENCES PROFESSOR documented in this encounter Plan of Treatment Not on filedocumented as of this encounter Visit Diagnoses Diagnosis Sore throat Acute pharyngitis documented in this encounter Additional Health Concerns Infection Onset Date Last Indicated Resolved Time Rule Out COVID-19 12/17/2019 12/17/2019 12/18/2019 6: 16 PM CDT documented as of this encounter Care Teams Senior Informatica Developer Relationship Specialty Start Date End Date No Ref-Primary, Physician PCP - General 02/23/14 sInga DO Assigned OBGYN Provider 01/06/20 06/09/20 [address] [place] [address] Dottie Lucas MD Assigned OBGYN Provider 06/10/20 06/16/20 [address] [place] [address] Elva Ramos APRN CNM Assigned OBGYN Provider 07/01/20 11/10/20 [address] [place] [id number] s, Inga Espinoza DO Assigned OBGYN Provider 06/17/20 06/30/20 [address] [place] [address] documented as of this encounter
--- OUTSIDE RECORDS SUMMARY | 2021-10-01 16:52 | XMS_ITS | Encounter Summary ---
:1995 Author Organization [facility] Address [address] [place] [address] Care Team Providers Name Role Phone No Ref-Primary Primary Care Provider Olga Ibarra DO Unavailable Tray Lucas MD Unavailable Deandre Ramos APRN Unavailable Olga Ibarra DO Unavailable Reason for Visit Reason Comments Referral Encounter Details Date Type Department Care Team Description 04/27/2015 Communication - [facility] Yu Pritchett MD [facility] 6936 [facility] [place] [address] Referral [facility] [place] Provider, Historical 6936 [facility] S, [address] [place] [address] Social History Tobacco [...] as of this encounter Visit Diagnoses Diagnosis Hand fracture Closed fracture of metacarpal bone(s), s ite unspecified documented in this encounter Additional Health Concerns Infection Onset Date Last Indicated Resolved Time Rule Out COVID-19 12/17/2019 12/17/2019 12/18/2019 6: 16 PM CDT documented as of this encounter Care Teams Safety And Skill Based Pay Manager Relationship Specialty Start Date End Date No Ref-Primary, Physician PCP - General 02/23/14 sInga DO Assigned OBGYN Provider 01/06/20 06/09/20 [address] [place] [address] Dottie Lucas MD Assigned OBGYN Provider 06/10/20 06/16/[address] [place] [address] Elva Ramos APRN CNM Assigned OBGYN Provider 07/01/20 11/10/[address] [place] [address] sInga DO Assigned OBGYN Provider 06/17/20 06/30/[address] [place] [address] documented as of this encounter
--- OUTSIDE RECORDS SUMMARY | 2021-10-01 16:52 | XMS_ITS | Encounter Summary ---
:1995 Author Organization [facility] Address [address] [place] [address] Care Team Providers Name Role Phone No Ref-Primary Primary Care Provider Olga Ibarra DO Unavailable Tray Lucas MD Unavailable Deandre Ramos APRN Unavailable Olga Ibarra DO Unavailable Encounter Details Date Type Department Care Team Description 03/28/2014 [facility] Provider, [facility] Information Management [address] [place] [phone] Social History Tobacco Use Types Packs/Day Years [...] as of this encounter Care Teams Machine Maintenance Technician Relationship Specialty Start Date End Date No Ref-Primary, Physician PCP - General 02/23/14 Inga Ibarra DO Assigned OBGYN Provider 01/06/20 06/09/20 [address] [place] [address] Dottie Lucas MD Assigned OBGYN Provider 06/10/20 06/16/20 [address] [place] [address] Elva Ramos APRN CNM Assigned OBGYN Provider 07/01/20 11/10/20 [address] [place] [id number] Inga Ibarra DO Assigned OBGYN Provider 06/17/20 06/30/20 [address] [place] [id number] documented as of this encounter
--- OUTSIDE RECORDS SUMMARY | 2021-10-01 16:52 | XMS_ITS | Encounter Summary ---
:1995 Author Organization [place] Address [facility] [facility] [place] [address] Care Team Providers Name Role Phone No Ref-Primary Primary Care Provider Olga Ibarra DO Unavailable Tray Lucas MD Unavailable Deandre Ramos APRN Unavailable Olga Ibarra DO Unavailable Encounter Details Date Type Department Care Team Description 09/04/2015 [facility] Brittney Vaughn NP [facility] [address] [facility] [address] [place], [place] [id number] [facility] Provider, Historical [address] [facility], [facility] [address] [place] [address] Social History Tobacco Use Types Packs/Day [...] documented as of this encounter Care Teams Medical Billing Associate Relationship Specialty Start Date End Date No Ref-Primary, Physician PCP - General 02/23/14 sInga DO Assigned OBGYN Provider 01/06/20 06/09/[address] [address] [place] [id number] Dottie Lucas MD Assigned OBGYN Provider 06/10/20 06/16/[address] [place] [address] [place] [id number] Elva Ramos APRN CNM Assigned OBGYN Provider 07/01/20 11/10/[address] [place] [address] [place] [id number] Inga Ibarra DO Assigned OBGYN Provider 06/17/20 06/30/[address] [place] [address] [place] [id number] documented as of this encounter
--- OUTSIDE RECORDS SUMMARY | 2021-10-01 16:52 | XMS_ITS | Encounter Summary ---
:1995 Author Organization [place] Address [address] [place] [address] Care Team Providers Name Role Phone No Ref-Primary Primary Care Provider Olga Ibarra DO Unavailable Tray Lucas MD Unavailable Deandre Ramos APRN CN Unavailable Olga Ibarra DO Unavailable Reason for Visit Reason Comments Other Bitten by a squirrel Encounter Details Date Type Department Care Team Description 01/21/2016 Office Visit - [facility] Maryana Cerrato APRN [facility] [place] [address] Animal bite of [facility] Provider, Historical index finger [place] [address] [place] [address] Social History Tobacco Use Types [...] - Inhaled Oxygen Concentration - - Weight 62.8 kg (138 lb 8 oz) 01/21/2016 7:52 PM MILITARY PROFESSIONAL Height - - Body Mass Index 25.33 09/04/2015 10:16 PM CDT Body Mass Index Percentile 83.39 % 01/21/2016 7:[address] Growth Chart: CDC (Girls, 2-20 Years) documented in this encounter Progress Notes Maryana Cerrato, VAUGHN GAUGE OPERATOR - 01/21/2016 8:01 PM CST Assessment: 1. Animal bite of index finger Per CDC, squirrels do not carry rabies. No s/s of infection Ran finger under running tap water for 5 min, cleaned with betadine x3 and applied a topical antibiotic Plan: Right index finger squirrel bite Apply a topical antibiotic twice daily for 3 days Monitor for signs or symptoms of infection: redness, swelling, warmth and pussy drainage or if you begin to develop fevers. If these are occuring, return to clinic for further evaluation Subjective: Ava Parker is a 20 y.o. female who presents for evaluation of squirrel bite. She was helping a paralyzed squirrel across the road and got bite by it on the tip of her right index. She has washed it with soapy water and put peroxide on it. She rates the pain as a mild - moderate pain, she hasn't taken anything for pain. It bled initially, no other swelling or warmth. Full ROM, denies paresthesia. Tetanus in 2010. Review of Systems Pertinent items are noted in HPI. Objective: Visit Vitals ??? BP 108/62 (Patient Site: Right Arm, Patient Position: Sitting) ??? Pulse 65 ??? Temp 97.6 ??F (36.4 ??C) (Oral) ??? Resp 16 ??? Wt 138 lb 8 oz (62.8 kg) ??? SpO2 99% General appearance: alert, appears stated age and cooperative Skin: right index finger has a 2mm puncture at the base of the nail and no puncture visible on the pad of the right index finger. No erythema, drainage or warmth Neurologic: Grossly normal Musc: mild pain with palpation, Full ROM of finger documented in this encounter Plan of Treatment Not on filedocumented as of this encounter Visit Diagnoses Diagnosis Animal bite of index finger Open wound of finger(s) , without mentio n of complication documented in this encounter Additional Health Concerns Infection Onset Date Last Indicated Resolved Time Rule Out COVID-19 12/17/2019 12/17/2019 12/18/2019 6: 16 PM CDT documented as of this encounter Care Teams Electrical Supervisor Relationship Specialty Start Date End Date No Ref-Primary, Physician PCP - General 02/23/14 Inga Ibarra DO Assigned OBGYN Provider 01/06/20 06/09/20 [address] [place] [id number] Dottie Lucas MD Assigned OBGYN Provider 06/10/20 06/16/[address] [address] [place], [place] [phone] Elva Ramos APRN CNM Assigned OBGYN Provider 07/01/20 11/10/[address] [address] [place], [place] [id number] Inga Ibarra DO Assigned OBGYN Provider 06/17/20 06/30/[address] [place] [id number] documented as of this encounter
--- OUTSIDE RECORDS SUMMARY | 2021-10-01 16:52 | XMS_ITS | Encounter Summary ---
:1995 Author Organization [place] Address [address] [facility] [place] [address] Care Team Providers Name Role Phone No Ref-Primary Primary Care Provider Olga Ibarra DO Unavailable Tray Lucas MD Unavailable Deandre Ramos APRN Unavailable Olga Ibarra DO Unavailable Reason for Visit Reason Comments Rash Since yesterday patient notc ied a rash that has been spreading from patient's ankles, legs, chest, arms, b ack and head. The rash is bumpy and itchy. Patient deines any changes with at h ome products or patient's diet. Encounter Details Date Type Department Care Team Description 06/20/2015 Office Visit - [facility] Brittney Vaughn NP [facility] [address] [place] [address] [place], [place] [id number] Rash; [facility] Provider, Historical Itchy skin; Sasha Menstrual cramps; [address] [facility] Anxiety stat e, unspecified Drive [address], [address] [address] [place] [address] Social History Tobacco Use Types Packs/Day [...] - Inhaled Oxygen Concentration - - Weight 64 kg (141 lb 3.2 oz) 06/20/2015 10:00 AM CDT Height 157.5 cm (5' 2) 06/20/2015 10:00 AM CDT Body Mass Index 25.83 06/20/2015 10:00 AM CDT Body Mass Index Percentile 86.48 % 06/20/2015 10:00 AM C DT Growth Chart: [facility] (Girls, 2-20 Years) documented in this encounter Progress Notes Brittney Vaughn NP - 06/20/2015 10:10 AM CDT OFFICE VISIT NOTE Assessment/Plan 1. Rash 2. Itchy skin 3. Menstrual cramps When discussing review of systems she stated that she is expecting her menstrual period anytime now and has some cramping. 4. Anxiety Disorder I've encouraged her to apply skin moisturizer after showers and before bedtime, specifically something that is unscented like Aveeno products. Her mental health provider has prescribed her hydroxyzinefor her anxiety however has not taken this medication yet. If moisturizing her skin does not help Jules encouraged her to go ahead and try taking the hydroxyzine 1 tab, 3 times a day as needed. If these efforts do not improve her symptoms she should follow-up here for further evaluation, or sooner if her symptoms become worse. Subjective: Chief Complaint: Chief Complaint Patient presents with ??? Rash Since yesterday patient notcied a rash that has been spreading from patient's ankles, legs, chest,arms, back and head. The rash is bumpy and itchy. Patient deines any changes with at home products or patient's diet. Ava is a 19-year-old female who is here with her mom with history of migraines, allergic rhinitis, PTSD, depression, anxiety and several allergies who presents to the clinic with her mom complaining of a rash involving the forearm, hand, head, wrist and ankles, and her upper back. Rash started 1 day ago. She noticed the itching before the bumps. Lesions are singular, measuring anywhere from 0.25-0.5 cm pink, and slightly indurated. Rash has not changed over time. Rash is pruritic and some discomfort when she scratches the raised areas. Associated symptoms: none. Patient denies: abdominal pain,arthralgia, congestion, cough, fever, nausea, sore throat and vomiting. Patient has not had contactswith similar rash. Patient has not had new exposures (soaps, lotions, laundry detergents, foods, medications, plants, insects or animals). Allergies Allergen Reactions ??? Nobles Seed ??? Cat Hair Std Allergenic Ext ??? Cockroach ??? House Dust ??? Peanut Shortness Of Breath Current Outpatient Prescriptions on File Prior to [...] REACTION 3 Pre-filled Pen Syringe 0 ??? escitalopram oxalate (LEXAPRO) 10 MG tablet Take 3 mg by mouth daily. ??? HYDROcodone-acetaminophen 5-325 mg per tablet Take 1-2 tablets by mouth every 6 (six) hours as needed for pain. 16 tablet 0 ??? ibuprofen 200 mg cap Take 600 mg by mouth as needed. ??? QUEtiapine (SEROQUEL) 50 MG tablet Take 50 mg by mouth bedtime. No current facility-administered medications on file prior to visit. Patient Active Problem List Diagnosis ??? Migraine [...] Stress Disorder ??? Foot Pain (Soft Tissue) Current allergies, medications, and past medical history are all reviewed and mediations updated. Review of Systems: Pertinent systems are listed above in HPI Objective: Visit Vitals ??? BP 100/60 (Patient Site: Left Arm, Patient Position: Sitting, Cuff Size: Adult) ??? Pulse 86 ??? Temp 98.5 ??F (36.9 ??C) (Oral) ??? Ht 5' 2 (1.575 m) ??? Wt 141 lb 3.2 oz (64 kg) ??? LMP 05/28/2015 ??? BMI 25.83 kg/m2 Constitutional: General appearance is normal, alert and oriented, cooperative, affect appropriate, speech clear, in no apparent distress, and appears stated age Head: Normal- normocephalic, without obvious abnormalities Skin: Single pink indurated lesions measuring anywhere from 0.25-0.5 cm mostly in areas that she isscratching scattered over wrists, ankles, back of the neck. Color, texture and turgor are normal.Skin is warm and dry. No blistering, pustules,oozing drainage. Eyes: Normal- clear conjunctiva and lids are normal, no redness, swelling or drainage. Nose: Normal- Septum midline, nares patent, no visible polyps, mucosa moist and without drainage Ears: TMs have some scar tissue bilaterally otherwise normal. External canals are normal, landmarks are visible bilaterally. Hearing is intact Mouth/throat: Normal- Mucous membranes are pink and intact, no erythema or exudate. Teeth and gumsare normal. Lips pink and moist without lesions. Neck: Normal- no adenopathy Abdomen: Normal- Soft and non-tender. No hepatosplenomegaly or other masses. Extremities: Normal- Capillary refill brisk, skin is warm and pink. No cyanosis or edema. Neuro: Normal- gait is steady Brittney Vaughn CNP Cinder Worker using voice recognition software, may contain typographical errors. documented in this encounter Plan of Treatment Not on filedocumented as of this encounter Visit Diagnoses Diagnosis Rash Rash and other nonspecific skin eruption Itchy skin Unspecified pruritic disorder Menstrual cramps Dysmenorrhea Anxiety state, unspecified documented in this encounter Additional Health Concerns Infection Onset Date Last Indicated Resolved Time Rule Out COVID-19 12/17/2019 12/17/2019 12/18/2019 6: 16 PM CDT documented as of this encounter Care Teams Engineering Scientist Relationship Specialty Start Date End Date No Ref-Primary, Physician PCP - General 02/23/14 Inga Ibarra DO Assigned OBGYN Provider 01/06/20 06/09/20 [address] [place] [place] [id number] Dottie Lucas MD Assigned OBGYN Provider 06/10/20 06/16/[address] [place] [address] [place] [id number] Elva Ramos APRN CNM Assigned OBGYN Provider 07/01/20 11/10/[address] [place] [address] [place] [id number] Inga Ibarra DO Assigned OBGYN Provider 06/17/20 06/30/[address] [place] [address] [place] [id number] documented as of this encounter
--- OUTSIDE RECORDS SUMMARY | 2021-10-01 16:52 | XMS_ITS | Encounter Summary ---
:1995 Author Organization [place] Address [address] [place] [address] Care Team Providers Name Role Phone No Ref-Primary Primary Care Provider Olga Ibarra DO Unavailable Tray Lucas MD Unavailable Deandre Ramos APRN Unavailable Olga Ibarra DO Unavailable Reason for Visit Reason Comments Appointment Encounter Details Date Type Department Care Team Description 02/18/2016 Communication - [facility] Yu Pritchett MD [facility] [address] [facility] [place] [address] Appointment [facility] [place] Provider, Historical [address] [facility] [address], [address] [place] [address] Social History Tobacco [...] documented as of this encounter Care Teams Roller Engraver Relationship Specialty Start Date End Date No Ref-Primary, Physician PCP - General 02/23/14 sInga DO Assigned OBGYN Provider 01/06/20 06/09/20 [address] [place] [address] Dottie Lucas MD Assigned OBGYN Provider 06/10/20 06/16/20 [address] [place] [id number] Elva Ramos APRN CNM Assigned OBGYN Provider 07/01/20 11/10/[address] [address] [place] [id number] Inga Ibarra DO Assigned OBGYN Provider 06/17/20 06/30/20 [address] [place] [id number] documented as of this encounter
--- OUTSIDE RECORDS SUMMARY | 2021-10-01 16:52 | XMS_ITS | Encounter Summary ---
:1995 Author Organization [place] Address [address] [place] [address] Care Team Providers Name Role Phone No Ref-Primary Primary Care Provider Olga Ibarra DO Unavailable Tray Lucas MD Unavailable Deandre Ramos APRN Unavailable Olga Ibarra DO Unavailable Reason for Visit Reason Comments Other Encounter Details Date Type Department Care Team Description 11/10/2014 Communication - [facility] Yu Pritchett MD [facility] [address] [facility] [place] [address] Other [facility] [place] Provider, Historical [address] [facility] S, [address] [place] [address] Social History Tobacco [...] documented as of this encounter Care Teams Property Technician Relationship Specialty Start Date End Date No Ref-Primary, Physician PCP - General 02/23/14 sInga DO Assigned OBGYN Provider 01/06/20 06/09/20 [address] [place] [id number] Dottie Lucas MD Assigned OBGYN Provider 06/10/20 06/16/20 [address] [place] [id number] Elva Ramos APRN CNM Assigned OBGYN Provider 07/01/20 11/10/[address] [address] [place] [id number] Inga Ibarra DO Assigned OBGYN Provider 06/17/20 06/30/20 [address] [place] [id number] documented as of this encounter
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
--- OUTSIDE RECORDS SUMMARY | 2021-10-01 16:52 | XMS_ITS | Encounter Summary ---
:1995 Author Organization [place] Address [address] [place] [address] Care Team Providers Name Role Phone No Ref-Primary Primary Care Provider Olga Ibarra DO Unavailable Tray Lucas MD Unavailable Deandre Ramos APRN, CNM Unavailable Olga Ibarra DO Unavailable Encounter Details Date Type Department Care Team Description 01/28/2016 Communication - M [facility] Provider, [address] [address] Social History Tobacco Use Types Packs/Day [...] documented as of this encounter Care Teams Solar Energy Advisor Relationship Specialty Start Date End Date No Ref-Primary, Physician PCP - General 02/23/14 Inga Ibarra DO Assigned OBGYN Provider 01/06/20 06/09/20 [address] [place] [id number] Dottie Lucas MD Assigned OBGYN Provider 06/10/20 06/16/20 [address] [place] [id number] Elva Ramos APRN CNM Assigned OBGYN Provider 07/01/20 11/10/20 [address] [place] [id number] Inga Ibarra DO Assigned OBGYN Provider 06/17/20 06/30/20 [address] [place] [id number] documented as of this encounter
--- OUTSIDE RECORDS SUMMARY | 2021-10-01 16:52 | XMS_ITS | Encounter Summary ---
:1995 Author Organization [place] Address [address] [place] [address] Care Team Providers Name Role Phone No Ref-Primary Primary Care Provider Olga Ibarra DO Unavailable Tray Lucas MD Unavailable Deandre Ramos APRN Unavailable Olga Ibarra DO Unavailable Reason for Visit Reason Comments Other other Encounter Details Date Type Department Care Team Description 06/06/2014 Communication - [facility] Yu Pritchett MD [facility] [address] [place] [address] [place] [address] Other (other) [facility] ProviderRyan [place] [address] [place] [address] S, [address] [place] [address] Social History Tobacco Use Types Packs/Day [...] documented as of this encounter Care Teams Microsoft Office Instructor Relationship Specialty Start Date End Date No Ref-Primary, Physician PCP - General 02/23/14 sInga DO Assigned OBGYN Provider 01/06/20 06/09/20 [address] [place] [id number] Dottie Lucas MD Assigned OBGYN Provider 06/10/20 06/16/[address] [place] [id number] Elva Ramos APRN CNM Assigned OBGYN Provider 07/01/20 11/10/[address] [place], [place] [id number] Inga Ibarra DO Assigned OBGYN Provider 06/17/20 06/30/[address] [place] [id number] documented as of this encounter
--- OUTSIDE RECORDS SUMMARY | 2021-10-01 16:52 | XMS_ITS | Encounter Summary ---
:1995 Author Organization [place] Address [address] [place] [address] Care Team Providers Name Role Phone No Ref-Primary Primary Care Provider Olga Ibarra DO Unavailable Tray Lucas MD Unavailable Deandre Ramos APRN Unavailable Olga Ibarra DO Unavailable Encounter Details Date Type Department Care Team Description 05/31/2015 Records - [facility] CONVERSION Provider, Historkimberlee aguilera Social History Tobacco Use Types Packs/Day Years [...] documented as of this encounter Care Teams Content Curator Relationship Specialty Start Date End Date No Ref-Primary, Physician PCP - General 02/23/14 Inga Ibarra DO Assigned OBGYN Provider 01/06/20 06/09/[address] [place] [address] Dottie Lucas MD Assigned OBGYN Provider 06/10/20 06/16/[address] [place], [place] [id number] Elva Ramos APRN CNM Assigned OBGYN Provider 07/01/20 11/10/[address] [place] [address] Inga Ibarra DO Assigned OBGYN Provider 06/17/20 06/30/[address] [place], [place] [address] documented as of this encounter
--- OUTSIDE RECORDS SUMMARY | 2021-10-01 16:52 | XMS_ITS | Encounter Summary ---
:1995 Author Organization [place] Address [address] [place] [address] Care Team Providers Name Role Phone No Ref-Primary Primary Care Provider Olga Ibarra DO Unavailable Tray Lucas MD Unavailable Deandre Ramos APRN Unavailable Olga Ibarra DO Unavailable Encounter Details Date Type Department Care Team Description 05/03/2015 Records - [facility] CONVERSION Provider, Historkimberlee aguilera Social History Tobacco [...] documented as of this encounter Care Teams Trailer Mechanic Relationship Specialty Start Date End Date No Ref-Primary, Physician PCP - General 02/23/14 Inga Ibarra DO Assigned OBGYN Provider 01/06/20 06/09/[address] [place] [address] Dottie Lucas MD Assigned OBGYN Provider 06/10/20 06/16/[address] [place], [place] [address] Elva Ramos APRN CNM Assigned OBGYN Provider 07/01/20 11/10/[address] [place] [address] Inga Ibarra DO Assigned OBGYN Provider 06/17/20 06/30/[address] [place], [place] [address] documented as of this encounter
--- OUTSIDE RECORDS SUMMARY | 2021-10-01 16:52 | XMS_ITS | Encounter Summary ---
:1995 Author Organization [place] Address [address] [place] [address] Care Team Providers Name Role Phone No Ref-Primary Primary Care Provider Olga Ibarra DO Unavailable Tray Lucas MD Unavailable Deandre Ramos APRN Unavailable Olga Ibrara DO Unavailable Reason for Visit Reason Comments Results Lab work Encounter Details Date Type Department Care Team Description 08/09/2014 Communication - [facility] Yu Pritchett MD [address] [place] [address] Results (Lab work) [facility] [address] [place] [address] S, [facility] [address] [place] [address] Social History Tobacco Use Types Packs/Day [...] documented as of this encounter Care Teams Literature Professor Relationship Specialty Start Date End Date No Ref-Primary, Physician PCP - General 02/23/14 sInga DO Assigned OBGYN Provider 01/06/20 06/09/20 [address] [place] [id number] Dottie Lucas MD Assigned OBGYN Provider 06/10/20 06/16/[address] [place] [address] Elva Ramos APRN CNM Assigned OBGYN Provider 07/01/20 11/10/[address] [place] [id number] Inga Ibarra DO Assigned OBGYN Provider 06/17/20 06/30/[address] [place] [address] documented as of this encounter
--- OUTSIDE RECORDS SUMMARY | 2021-10-01 16:52 | XMS_ITS | Encounter Summary ---
:1995 Author Organization [place] Address [address] [place] [address] Care Team Providers Name Role Phone No Ref-Primary Primary Care Provider Olga Ibarra DO Unavailable Tray Lucas MD Unavailable Deandre Ramos APRN Unavailable Olga Ibarra DO Unavailable Reason for Visit Reason Comments Well Child 19 year exam Encounter Details Date Type Department Care Team Description 06/06/2015 Office Visit - [facility] [place], Routine or child health check; [facility] Hayden Guzmán MD Oral contraceptive use; Sasha [address] Allergy to other foods; [address] [facility] Parag Cervantes Bleeding after intercourse [address], [address] [facility] [address] [place] [phone] [address] (Work) [phone] Social History Tobacco Use Types Packs/Day Years [...] - - Weight 62.8 kg (138 lb 6.4 oz) 06/06/2015 11:33 AM CDT Height 157.5 cm (5' 2) 06/06/2015 11:33 AM CDT Body Mass Index 25.31 06/06/2015 11:33 AM CDT Body Mass Index Percentile 84.52 % 06/06/2015 11:33 AM C DT Growth Chart: [facility] (Girls, 2-20 Years) documented in this encounter Progress Notes Chantal Bolivar MD - 06/06/2015 11:34 AM CDT 19 Year Well Child Check Height: 5' 2 (1.575 m) (20 %, Z= -0.86, Source: [facility] 2-20 Years) Weight: 138 lb 6.4 oz (62.8 kg) (75 %, Z= 0.67, Source: [facility] 2-20 Years) Blood Pressure: 96/64 BMI: Body mass index is 25.31 kg/(m^2). BSA: Body surface area is 1.66 meters squared. SUBJECTIVE Concerns: None. Patient overall seems to be doing well. She is eating well and seems to be gainingweight appropriately. She does eat 2 meals a day and drinks 3 glasses of milk a day. We discussed the importance of making sure that she continues to drink 3 glasses of milk a day. We also discussedthe importance of making sure that she eats breakfast every day. Vision and hearing seem to be fine. She is on control pills and that seems to working well. She is not currently sexually active but she has been in the past. She has noticed that she gets bleeding after intercourse for about the last year or so. We discussed that this often is entry level marketing representative of some kind of infection going on but she notes that she has had evaluation for infection several times in the past year and it's always been negative and she declines any kind of further evaluation today. 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 She would eventually like to go to college. She does need arefill of her control pills. She overall feels like things are doing well and has no concerns today. 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 She does have a history of anxiety and depression and is managed by a nurse practitioner for that. She does have breathing medications but she only uses those as needed which is relatively rarely. Family Unit: Mother Temperament: Calm, happy, independent and energetic Patient brought in by self Past Medical History Diagnosis Date ??? Boxer's fracture 04/27/15 Left hand. Punched a wall at school. Past Surgical History Procedure Laterality Date ??? Pr open treatment tarsometatarsal joint dislocation Description: Open Treatment Of Tarsometatarsal Dislocation; Proc Date: 06/09/2011; Comments: ORIF of Lisfranc joint, intercuneiform arthrotomy with synovectomy. Adria Butterfield DPM, [facility] [place]. History reviewed. No pertinent family history. Cardiovascular risk factors: None Immunization History Administered Date(s) Administered ??? DTP 02/20/1998, 05/04/1998 ??? DTaP, historic 07/11/1998, 02/25/1999, 09/11/2003 ??? HPV Quadrivalent 11/13/2011, 01/20/2012, 06/08/2012 ??? Hep A, historic 12/07/2012, 09/13/2013 ??? Hep B, historic 1997, 02/20/1998, 06/01/1998 ??? HiB, historic 02/20/1998, 06/01/1998, 07/11/1998, 02/25/1999 ??? IPV 02/20/1998, 06/01/1998, 11/30/1998, 09/11/2003 ??? Influenza [id number], 01/18/2008 ??? MMR 11/30/1998, 09/11/2003, 11/13/2011 ??? Meningococcal MCV4P 12/07/2012 ??? Tdap 10/09/2010 ??? Varicella 11/30/1998, 10/09/2010, 11/13/2011 Family/Peer Relationships: Has friends at/through school and gets along well with adults. Sports/Exercise/Activities: none The patient is involved in a variety of enjoyable activities. Nutrition: The patient eats a regular, healthy diet. she eats only 2 meals a day we discussed the importance ofmaking sure that she eats breakfast every day. She does eat multiple snacks throughout the day. Sleep habits: Night: 9 hours Elimination: 1 per day Requested Prescriptions Signed Prescriptions Disp Refills ??? desogestrel-ethinyl estradiol (RECLIPSEN, 28,) 0.15-0.03 mg per tablet 84 tablet 4 Sig: TAKE ONE TABLET BY MOUTH EVERY DAY ??? EPINEPHrine (EPIPEN 2-ISABELLE) 0.3 mg/0.3 mL atIn 3 Pre-filled Pen Syringe 0 Sig: TAKE DIRECTED FOR ALLERGIC REACTION Social History: Sexually active: currently not sexually active, but has had 7 partners in the past Alcohol/Drug use: The patient denies use of alcohol, tobacco, or illicit drugs. Safety concerns: The patient denies any history of significant injuries. Abuse concerns: none Legal concerns: denies. Education: Grade: hakan. Employment: The patient is working 30 hours per week. Her job is at [employer]. Depression/Anxiety: The patient denies any present symptoms of depression or anxiety. she sees a nurse practitioner for medication management for her depression and anxiety medications. REVIEW OF SYSTEMS Constitutional: Negative. Negative for fever, activity change, appetite change and irritability. HENT: Negative. Negative for congestion, ear pain and voice change. Eyes: Negative. Negative for discharge and redness. Respiratory: Negative. Negative for apnea, choking and wheezing. Cardiovascular: Negative. Negative for cyanosis. Gastrointestinal: Negative. Negative for diarrhea, constipation, blood in stool and abdominal distention. Endocrine: Negative. Genitourinary: Negative. Negative for decreased urine volume. Musculoskeletal: Negative. Negative for gait problem. Skin: Negative. Negative for color change and rash. Allergic/Immunologic: Negative. Negative for environmental allergies and food allergies. Neurological: Negative. Negative for seizures, facial asymmetry and weakness. Hematological: Negative. Does not bruise/bleed easily. Psychiatric/Behavioral: Negative. Negative for behavioral problems. The patient is not hyperactive. PHYSICAL EXAM General Appearance: Alert, NAD Eyes: Clear Ears: TM's pearly wiggins Nose: Clear Throat: Clear Neck: Supple, no significant adenopathy Lungs: Clear with equal air entry, no retractions or increased work of breathing Cardiac: RRR without murmur, capillary refill less than 2 seconds Abdomen: Soft, nontender, no hepatosplenomegaly or mass palpable Musculoskeletal: Normal Skin: No rash or jaundice ANTICIPATORY GUIDANCE Specific topics reviewed: drugs, ETOH, and tobacco, importance of regular dental care, importance ofregular exercise, importance of varied diet and sex; STD and prevention. ASSESSMENT/PLAN 1. Routine infant or child health check - Hearing Screening - Vision Screening 2. Oral contraceptive use - desogestrel-ethinyl estradiol (RECLIPSEN, 28,) 0.15-0.03 mg per tablet; TAKE ONE TABLET BY MOUTH EVERY DAY Dispense: 84 tablet; Refill: 4 3. Allergy To Nuts - EPINEPHrine (EPIPEN 2-ISABELLE) 0.3 mg/0.3 mL atIn; TAKE DIRECTED FOR ALLERGIC REACTION Dispense: 3Pre-filled Pen Syringe; Refill: 0 4. Bleeding after intercourse Patient is a 19 y.o. 6 m.o. female here for well child check. She is overall doing well. She was given a refill of her EpiPen as well as a refill of her control pills. Immunizations are up to date. Vision and hearing appear to be normal. Patients concerns addressed today. She does note that she has some bleeding after intercourse and has had that on and off for the last year or so. She declined any kind of evaluation today as she states that she has had numerous evaluations for infectionsin the past and they've all been negative. They should return at 20 years of age for next well child check. They will call with additional problems or concerns. Chantal Bolivar MD documented in this encounter Plan of Treatment Not on filedocumented as of this encounter Visit Diagnoses Diagnosis Routine or child health check Oral contraceptive use Surveillance of previously prescribed co ntraceptive pill Allergy to other foods Bleeding after intercourse Postcoital bleeding documented in this encounter Additional Health Concerns Infection Onset Date Last Indicated Resolved Time Rule Out COVID-19 12/17/2019 12/17/2019 12/18/2019 6: 16 PM CDT documented as of this encounter Care Teams Cylinder Block Hole Reliner Relationship Specialty Start Date End Date No Ref-Primary, Physician PCP - General 02/23/14 MastersInga DO Assigned OBGYN Provider 01/06/20 06/09/20 [address] [place] [address] Dottie Lucas MD Assigned OBGYN Provider 06/10/20 06/16/20 [address] [place] [id number] Elva Ramos APRN CNM Assigned OBGYN Provider 07/01/20 11/10/20 [address] [place] [address] sInga DO Assigned OBGYN Provider 06/17/20 06/30/20 [address] [place] [address] documented as of this encounter
--- OUTSIDE RECORDS SUMMARY | 2021-10-01 16:52 | XMS_ITS | Encounter Summary ---
:1995 Author Organization [place] Address [address] [place] [address] Care Team Providers Name Role Phone No Ref-Primary Primary Care Provider Olga Ibarra DO Unavailable Tray Lucas MD Unavailable Deandre Ramos APRN Unavailable Olga Ibarra DO Unavailable Encounter Details Date Type Department Care Team Description 04/05/2014 Ambulatory - [facility] Yu Keith MD [address] [place], [place] [id number] Provider, Historical Social History Tobacco Use Types Packs/Day Years [...] as of this encounter Care Teams Senior Talent Acquisition Specialist Relationship Specialty Start Date End Date No Ref-Primary, Physician PCP - General 02/23/14 Inga Ibarra DO Assigned OBGYN Provider 01/06/20 06/09/[address] [place] [address] Dottie Lucas MD Assigned OBGYN Provider 06/10/20 06/16/[address] [place] [address] Elva Ramos APRN CNM Assigned OBGYN Provider 07/01/20 11/10/[address] [place] [address] sInga DO Assigned OBGYN Provider 06/17/20 06/30/[address] [place] [address] documented as of this encounter
--- OUTSIDE RECORDS SUMMARY | 2021-10-01 16:52 | XMS_ITS | Encounter Summary ---
:1995 Author Organization [place] Address [address] [place] [address] Care Team Providers Name Role Phone No Ref-Primary Primary Care Provider Olga Ibarra DO Unavailable Tray Lucas MD Unavailable Deandre Ramos APRN Unavailable Olga Ibarra DO Unavailable Encounter Details Date Type Department Care Team Description 04/26/2015 [facility] Farhana Jaeger MD Pain in [place] [facility] [address] [address] [phone] [place], [place] (Work) [address] [phone] Social History Tobacco Use Types Packs/Day Years [...] Priority Date/Time Associated Diagnosis Comme nts XR HAND LT G/E 3 VW Routine 04/26/2015 3:56 PM Pain in left h and Results for this PHOTOGRAMMETRIC ENGINEER procedure are i n the results section. documented in this encounter Results XR Hand Left G/E 3 Views (04/26/2015 3:56 PM PHOTOGRAMMETRIC ENGINEER) Anatomical Region Laterality Modality Hand, Wrist Left Other Specimen (Source) Anatomical Location Collection Method / Collectio n Time Received Time / Laterality Volume Narrative 04/26/2015 4:07 PM PHOTOGRAMMETRIC ENGINEER XR HAND LEFT 3 OR MORE VW04/26/2015 3:56 PMINDICATION: Left hand pain due to injury.COMPARISON: None.FINDINGS: There is a nondisplaced oblique fracture of the proximal metaphysis and diaphysis of the fi fth metacarpal. Alignment appears satisf actory. No additional fractures are demonstrated.NO TE: ABNORMAL REPORTTHE DICTATION ABOVE DESCRIBES AN ABNORMALITY FOR WHICH FOLLOW-UP IS NEEDED.This report was electronically interpreted by: Dr. Adán Renee MD ON 04/26/2015 at 16:07 Procedure Note Heri Renee - 08/19/2020Formatti ng of this note might be different from the original. XR HAND LEFT 3 OR MORE VW04/26/2015 3:56 PMINDICATION: Left hand pain due to injury.COMPARISON: None.FINDINGS: There is a nondisplaced oblique fracture of the proximal metaphysis and diaphysis of the fifth metacarpal. Alignment appears satisfactory. No additional fractures are demonstrated.NO TE: ABNORMAL REPORTTHE DICTATION ABOVE DESCRIBES AN ABNORMALITY FOR WHICH FOLLOW-UP IS NEEDED.This report was electronically interpreted by: Dr. Adán Renee MD ON 04/26/2015 at 16:07 Farhana Jaeger MD IMG DIAGNOSTIC IMAGING ORDER SHEY documented in this encounter Visit Diagnoses Diagnosis Pain in left hand documented in this encounter Additional Health Concerns Infection Onset Date Last Indicated Resolved Time Rule Out COVID-19 12/17/2019 12/17/2019 12/18/2019 6: 16 PM CDT documented as of this encounter Care Teams Configuration Consultant Relationship Specialty Start Date End Date No Ref-Primary, Physician PCP - General 02/23/14 sInga DO Assigned OBGYN Provider 01/06/20 06/09/[address] [place] [address] Dottie Lucas MD Assigned OBGYN Provider 06/10/20 06/16/[address] [place] [address] Elva Ramos APRN CNM Assigned OBGYN Provider 07/01/20 11/10/[address] [place] [address] sInga DO Assigned OBGYN Provider 06/17/20 06/30/20 [address] [place] [address] documented as of this encounter
--- OUTSIDE RECORDS SUMMARY | 2021-10-01 16:52 | XMS_ITS | Encounter Summary ---
:1995 Author Organization [place] Address [address] [facility] [place] [address] Care Team Providers Name Role Phone No Ref-Primary Primary Care Provider Olga Ibarra DO Unavailable Tray Lucas MD Unavailable Deandre Ramos APRN Unavailable Olga Ibarra DO Unavailable Reason for Visit Reason Comments Follow Up Patient would like to follow up from the Walk In Care visit on 09/01/15. Patient is still vomiting, h ave dizzness, weight loss, headaches and light sensitivty. Patient denies a ny fevers or diarrhea. Encounter Details Date Type Department Care Team Description 09/03/2015 Office Visit - [facility] Brittney Vaughn NP [facility] [address] [place] [address] Follow up; [facility] [place] Provider, Ryan Nausea; Sasha Vomiting; [address] [facility] Headache; [address] Weight loss, non-intentional [place] Prof [place] [id number] Social History Tobacco Use Types Packs/Day [...] - Inhaled Oxygen Concentration - - Weight 58.4 kg (128 lb 11.2 oz) 09/03/2015 2:03 PM CDT Height - - Body Mass Index 23.54 06/20/2015 10:00 AM CDT Body Mass Index Percentile 73.88 % 09/03/2015 2:03 PM CDT Growth Chart: [facility] (Girls, 2-20 Years) documented in this encounter Progress Notes Brittney Vaughn, ROBERTO - 09/03/2015 2:08 PM CDT OFFICE VISIT NOTE Assessment/Plan Follow up Nausea Vomiting Headache, behind eyes with some pulsating No nystagmus. Pupils are round, equal, and reactive to light. She did not appear to be light sensitive during the exam. Weight loss, non-intentional Ava appears well hydrated and is exceptionally energetic given her history. She is smiling, laughing, and is non-ill appearing. She is moving around the room without difficulties and shows no signs of discomfort. Her exam is unremarkable given her syptoms. She does have some scaring on her TM bila terally and did feel dizzy when turning her head to the right and left, but not with neck flexion orextension while assessing for possible vertigo. She has lost 10 lbs since last documented in our records from two days ago. Yet, here she tells me she now feels the best she has felt in days. Since vomiting earlier today, she has kept down crackers and Gatorade. I stressed the importance that she take sips of room temperature clear and electrolyte containing fluids to maintain hydration and to rest until she is feeling better. She may advance her diet as tolerated. She can try taking the Zofran to see if this helps with her nausea. Her lab results are normal, throat culture is pending but suspect this to be negative. We will call her if this is comes backpositive. She will need to follow up if no improvement over the next 24-48 hours, or sooner with worsening symptoms. This may require going to the ED if not during normal office hours. If no improvement, I would then consider drug screening or imaging of her abdomen. Orders: - HM2(CBC w/o Differential)- Within normal limits - Comprehensive Metabolic Panel- Within normal limits - Erythrocyte Sedimentation Rate- within normal limits - Culture, Stool; Future- If she starts having diarrhea, I recommended she bring in a sample. - Rapid Strep A Screen-Throat- Negative - Group A Strep, RNA Direct Detection, Throat- Pending - ondansetron (ZOFRAN, HYDROCHLORIDE,) 4 MG tablet; Take 1 tablet (4 mg total) by mouthevery 8 (eight) hours as needed for nausea. Dispense: 6 tablet; Refill: 0 Brittney Vaughn CNP Subjective: Chief Complaint: Chief Complaint Patient presents with ??? Follow-up Patient would like to follow up from the Walk In Care visit on 09/01/15. Patient is still vomiting,have dizzness, weight loss, headaches and light sensitivty. Patient denies any fevers or diarrhea. Ava is a 19-year-old female who is here with her mom with history of migraines, allergic rhinitis, PTSD, depression, anxiety, cutting, and several allergies who presents to the clinic with her mom complaining of intermittent nausea, vomiting, dizziness, light sensitivity, headache and eye pulsating for one week. She was recently seen for this at walk-in care two days ago and is here for follow up. (See the patient's chart note from 09/01/2015). test and UA were ordered and negative. Her history and exam was not thought to be gastritis. Meclizine was suggested for vertigo like symptoms but mom never picked it up because didn't think she had vertigo. She started weaning off her Seroquel, but serotonin syndrome was not suspected. Ava states this all started about 1 week ago while working at [employer]. The smell of the meat madeher nauseated. She felt dizzy, went to the back room and vomited. The vomitus was fluid, no solid substance from the food she ate earlier that day. She was told she needed to stay home from work for3 days before returning to work. Three days later she was scheduled to work her second job [facility] [employer]. She made it through that shift without any issues, but then vomitted the next day. Avareports having intermittent nausea, one emesis per day, dizziness when turning head to the right andleft, headache and pulsating behind her eyes, and dizziness. Emesis is described as gastric contents. For example, if she drank purple Gatorade, her emesis was described as purple fluid. The headache and pulsating behind her eyes makes her nauseated. Today she feels dizzy when standing from a seated position. She ate a small piece of chicken about three days ago and kept this down. Last bowel movement was three days ago and described as normal (brown and soft). This information was confusing because she also reported having diarrhea there days ago, but confirmed that her BM was small, and normal three days ago. She has not ate anything solid since. She is drinking Gatorade. Water makes hernauseated. She felt her symptoms to be improving since being see at [facility] two days ago until this morning. She woke up vomiting and reports 12 episodes just this morning. She consumed crackerssince these episodes and kept them down. She now feels the best she has felt in days. In the same sentence, she reported that she went for a walk today but then had to go home because she felt nauseated. She states she has not urinated today. Ava notes her weight significantly dropped since her last visit only 2 days ago. She has lost almost 10 pounds. She is otherwise belching, especially more before vomiting. She denies fevers, body aches and chills, rash, facial pain or pressure, ear pain, sore throat, cough, shortness of breath, chest pain, low back and neck pain, weakness, paresthesia, and or coordination issues. Current allergies, medications, and past medical history are all reviewed and updated. Review of Systems: Constitutional: Unintentional weight loss, Denies fever, chills, & night sweats fainting Eyes: Headache behind eyes, eye pulsating, light sensitivity, showering feels better. Denies visualchanges & double vision HENT: Last dental visit was 3 months ago for a cleaning. Her dentist told her that the wisdom teethmight start to bother her. Denies changes in hearing, ear pain, tinnitus, hoarseness, difficulty swallowing. Respiratory: She thinks she has been wheezing. Denies shortness of breath, cough, and exercise intolerance Cardiovascular: Dizziness, lightheadedness and is worried she is going to pass out. Feels like the room is moving when turning her head to the right and left. Denies chest pain, dyspnea, tachycardia,palpitations, syncope. Gastrointestinal: Nausea and vomiting on and off for 1 week. Today she vomited 12 times. She is burping and she can hear her stomach rumble, but hasn't had a BM in three days. Denies diarrhea, dyspepsia Genitourinary: She states she has not urinated yet today, but was voiding like normal yesterday. Denies dysuria, frequency, hematuria and nocturia Integumentary: Denies pruritis, rashes, lesions or wounds Musculoskeletal: Denies muscular or joint pain, difficulty with range of motion Neurological: She has history of migraines. Her headache today is behind her eyes and along her brow line. She feels weak and her balance is off especially when getting up too fast. Denies changes in paresthesias. Behavioral/Psych: Denies difficulty concentrating & excessive moodiness Medications: She started tapering her Seroquel. Currently taking 50 mg every other day. This taperstarted 5 days before her current symptoms Objective: Visit Vitals ??? BP (!) 92/56 (Patient Site: Right Arm, Patient Position: Sitting, Cuff Size: Adult Regular) ??? Pulse 58 ??? Temp 98.2 ??F (36.8 ??C) (Oral) ??? Wt 128 lb 11.2 oz (58.4 kg) ??? LMP 08/20/2015 (Exact Date) ??? No Constitutional: General appearance is normal, alert and oriented, energetic, smiling, and laughing. Cooperative, speech clear, in no apparent distress, well hydrated and appears stated age Head: Normocephalic, without obvious abnormalities Skin: She has several small scars on her left forearm consistent with cutting. Skin texture and turgor are normal. Skin is warm and dry. Eyes: She is wearing glasses. Clear conjunctiva and lids are normal, no redness, swelling or drainage. Pupils are round, equal and reactive to light. No nystagmus Nose: Septum midline, nares patent, no visible polyps, mucosa moist and without drainage Ears: TMs with some scaring bilaterally and external canals are normal, landmarks are visible bilaterally. Hearing is intact Mouth/throat: Mucous membranes are pink and intact, no erythema or exudate. Teeth and gums are normal. Lips pink and moist without lesions. Neck: Three patches of broken blood vessels on her neck (confirmed to be hickey's per the patient). Otherwise, supple, symmetrical, trachea midline, no adenopathy. Thyroid has no enlargement/tenderness/nodules. Back: Symmetrical and non tender. No CVA tenderness Respiratory: Lungs are clear bilaterally to bases, respiratory effort is normal and unlabored. Cardiovascular: Normal auscultation, no murmurs, or gallops. Heart rate and rhythm is regular. Normal S1 & S2. Abdomen: Bowel sounds are active all four quadrants. Soft and non-tender. No hepatosplenomegaly or other masses. No bruits detected. Extremities: Pedal and radial pulses are strong bilaterally 2+. Capillary refill brisk, skin is warm and pink. No cyanosis or edema. Musculoskeletal: Full range of motion in all extremities. Neuro: Popliteal reflexes are 2+ and normal, gait is steady, normal strength and sensation throughout LABS: Recent Results (from the past 24 hour(s)) HM2(CBC w/o Differential) Result Value Ref Range WBC 7.3 4.5 - 13.0 thou/uL RBC 4.44 4.10 - 5.10 mill/uL Hemoglobin 13.0 12.0 - 16.0 g/dL Hematocrit 38.5 33.0 - 51.0 % MCV 87 78 - 102 fL MCH 29.3 25.0 - 35.0 pg MCHC 33.8 32.0 - 36.0 g/dL RDW 11.7 11.5 - 14.0 % Platelets 229 140 - 440 thou/uL MPV 10.0 7.0 - 10.0 fL Comprehensive Metabolic Panel Result Value Ref Range Sodium 140 136 - 145 mmol/L Potassium 4.1 3.5 - 5.0 mmol/L Chloride 105 98 - 107 mmol/L CO2 23 22 - 31 mmol/L Anion Gap, Calculation 12 5 - 18 mmol/L Glucose 89 70 - 125 mg/dL BUN 12 9 - 18 mg/dL Creatinine 0.78 0.60 - 1.10 mg/dL GFR MDRD Af Amer >60 mL/min/1.73m2 GFR MDRD Non Af Amer >60 mL/min/1.73m2 Bilirubin, Total 0.5 0.0 - 1.0 mg/dL Calcium 9.9 8.5 - 10.5 mg/dL Protein, Total 7.6 6.0 - 8.0 g/dL Albumin 4.1 3.5 - 5.0 g/dL Alkaline Phosphatase 63 50 - 364 U/L AST 15 0 - 40 U/L ALT 14 0 - 45 U/L Erythrocyte Sedimentation Rate Result Value Ref Range Sed Rate 7 0 - 20 mm/hr Rapid Strep A Screen-Throat Result Value Ref Range Rapid Strep A Antigen No Group A Strep detected No Group A Strep detected Brittney Vaughn CNP [employer] Tester using voice recognition software, may contain typographical errors. documented in this encounter Plan of Treatment Not on filedocumented as of this encounter Visit Diagnoses Diagnosis Follow up Nausea Nausea alone Vomiting Vomiting alone Headache Weight loss, non-intentional Loss of weight documented in this encounter Additional Health Concerns Infection Onset Date Last Indicated Resolved Time Rule Out COVID-19 12/17/2019 12/17/2019 12/18/2019 6: 16 PM CDT documented as of this encounter Care Teams Tubing Mill Setter Relationship Specialty Start Date End Date No Ref-Primary, Physician PCP - General 02/23/14 Masters, Inga Espinoza DO Assigned OBGYN Provider 01/06/20 06/09/[address] [place] [address] Dottie Lucas MD Assigned OBGYN Provider 06/10/20 06/16/[address] [place], [place] [address] Elva Ramos APRN CNM Assigned OBGYN Provider 07/01/20 11/10/[address] [place] [address] Masters, Inga Espinoza, DO Assigned OBGYN Provider 06/17/20 06/30/20 [address] [place] [id number] documented as of this encounter
--- OUTSIDE RECORDS SUMMARY | 2021-10-01 16:52 | XMS_ITS | Encounter Summary ---
:1995 Author Organization [place] Address [address] [place] [id number] Care Team Providers Name Role Phone No Ref-Primary Primary Care Provider Reason for Visit Reason Comments Withdrawal Encounter Details Date Type Department Care Team Description 09/04/2015 - Emergency [facility] Bossman-Jackie, Nancy, Headache; 09/05/2015 [facility] Vomiting Emergency Room [id number] [place] [address] [place] [address] [facility] [phone] Social History Tobacco Use Types Packs/Day Years [...] - Inhaled Oxygen Concentration - - Weight 57.6 kg (127 lb) 09/04/2015 10:16 PM CDT Height 157.5 cm (5' 2) 09/04/2015 10:16 PM CDT Body Mass Index 23.23 09/04/2015 10:16 PM CDT Body Mass Index Percentile 71.48 % 09/04/2015 10:16 PM C DT Growth Chart: CDC (Girls, 2-20 Years) documented in this encounter Medications at Time of Discharge Medication Sig Dispensed Refills Start Date End Date Citalopram Hydrobromide (CELEXA PO) 0 05/19/2017 documented as of this encounter ED Notes Nancy Gayle MD - 09/04/2015 11:32 PM CDT eMERGENCY dEPARTMENT eNCOUnter CHIEF COMPLAINT Nausea and Headache. HPI Ava Parker is a 19 y.o. female who presents to the ED for evaluation of nausea and a headache. One week ago, patient reports developing a gradual onset of a constant pressure headache that feels like her brain is going to burst out of the front of her skull. She also notes multiple episodes ofvomiting persisting throughout the last week where she has not been able to keep down any foods or fluids and notes that she has consequently lost about 13 lbs in the last week. Patient states that she stopped taking her Citalopram and Seroquel one week ago because she did not like the side effects she was getting from them. Two days ago, patient notes that she was seen by PCP and they stated that if her pain was not better in the next 48 hours, she should present to the ED. Currently in the ED, patient reports nausea and a headache. She denies any pain radiation and rates her pain 6/10 inseverity. He denies any definite alleviating or provoking factors of her pain. She denies any fever, chills, congestion, sore throat, rhinorrhea, cough, shortness of breath, chest pain, abdominal pain, blood in stool, diarrhea, urinary problems, rash, numbness, weakness, speech difficulty, dizziness, or any other associated injuries or complaints. This document serves as a record of services performed by Dr. Nancy Mejia, it was created on her behalf by Gregory Mckeon, trained medical claims analyst. The creation of this record is based on the scribe's personal observations and the providers statements to him. This document has been checked and approved by the attending provider. PAST MEDICAL HISTORY Past Medical History Diagnosis Date ??? Boxer's fracture 04/27/15 Left hand. Punched a wall at school. Reviewed medical history and nothing pertinent SURGICAL HISTORY Past Surgical History Procedure Laterality Date ??? Pr open treatment tarsometatarsal joint dislocation Description: Open Treatment Of Tarsometatarsal Dislocation; Proc Date: 06/09/2011; Comments: ORIF of Lisfranc joint, intercuneiform arthrotomy with synovectomy. Adria Butterfield DPM, Calli Arias,[facility] D Han[facility]. Reviewed surgical history and nothing pertient CURRENT MEDICATIONS Discharge Medication List as of 09/04/2015 11:47 PM CONTINUE these medications which have NOT CHANGED Details albuterol (PROAIR HFA) 90 mcg/actuation inhaler Inhale 2 puffs every 6 (six) hours as needed for wheezing., Until Discontinued, Historical Med budesonide-formoterol (SYMBICORT) 80-4.5 mcg/actuation inhaler Inhale 2 puffs 2 (two) times a day., Until Discontinued, Historical Med desogestrel-ethinyl estradiol (RECLIPSEN, 28,) 0.15-0.03 mg per tablet TAKE ONE TABLET BY MOUTH EVERY DAY, Normal EPINEPHrine (EPIPEN 2-ISABELLE) 0.3 mg/0.3 mL atIn TAKE DIRECTED FOR ALLERGIC REACTION, Normal !! escitalopram oxalate (LEXAPRO) 10 MG tablet Take 3 mg by mouth daily., Until Discontinued, Historical Med !! escitalopram oxalate (LEXAPRO) 20 MG tablet Starting 05/23/2015, Until Discontinued, Historical Med HYDROcodone-acetaminophen 5-325 mg per tablet Take 1-2 tablets by mouth every 6 (six) hours as needed for pain., Starting 04/26/2015, Until Discontinued, Print hydrOXYzine (VISTARIL) 25 MG capsule Starting 05/23/2015, Until Discontinued, Historical Med ibuprofen 200 mg cap Take 600 mg by mouth as needed., Until Discontinued, Historical Med ondansetron (ZOFRAN, HYDROCHLORIDE,) 4 MG tablet Take 1 tablet (4 mg total) by mouth every 8 (eight) hours as needed for nausea., Starting 09/03/2015, Until Thu09/05/15, Normal QUEtiapine (SEROQUEL) 50 MG tablet Take 50 mg by mouth bedtime., Until Discontinued, Historical Med !! - Potential duplicate medications found. Please discuss with provider. Reviewed and nothing pertinent. ALLERGIES Allergies Allergen Reactions ??? Posey Seed ??? Cat Hair Std Allergenic Ext ??? Cockroach ??? House Dust ??? Peanut Shortness Of Breath FAMILY HISTORY No family history on file. SOCIAL HISTORY reports that she has never smoked. She has never used smokeless tobacco. UTD on immunizations. REVIEW OF SYSTEMS Constitutional: Denies fever, chills, excessive weight loss Eyes: Denies any vision changes HENT: Denies sore throat. Respiratory: Denies productive cough or shortness of breath Cardiovascular: Denies chest pain or palpitations GI: Reports nausea and vomiting. Denies abdominal pain, or change in bowel habits. : Denies hematuria or dysuria. Musculoskeletal: Denies any new muscle/joint pain. Skin: Denies rash Neurologic: Reports headache. Denies focal weakness or sensory changes. Psych: Mood and affect normal All systems negative except as marked. PHYSICAL EXAM VITAL SIGNS: Visit Vitals ??? BP 120/80 (Patient Position: Sitting) ??? Pulse 76 ??? Temp 97 ??F (36.1 ??C) (Temporal) ??? Resp 18 ??? Ht 5' 2 (1.575 m) ??? Wt 127 lb (57.6 kg) ??? LMP 08/20/2015 (Exact Date) ??? SpO2 100% ??? BMI 23.23 kg/m2 Constitutional: Awake, alert, in mild distress HENT: Normocephalic, Atraumatic, Bilateral external ears normal, Oropharynx moist, Nose normal. Neck- Normal range of motion, No tenderness, Supple, No stridor. Eyes: PERRL, EOMI, Conjunctiva normal, No discharge. Respiratory: Normal breath sounds, No respiratory distress, No wheezing Cardiovascular: Normal heart rate, Normal rhythm, No appreciable rubs or gallops. GI: Soft, No tenderness, No distension, No palpable masses Musculoskeletal: Intact distal pulses, No edema. Good range of motion in all major joints. No tenderness to palpation or major deformities noted. Integument: Warm, Dry, No erythema, No rash. Neurologic: Alert & oriented, Normal motor function, Normal sensory function, No focal deficitsnoted. Psychiatric: Affect normal, Judgment normal, Mood normal. ED COURSE & MEDICAL DECISION MAKING The patient quit taking her citalopram and Seroquel 1 week ago which she thinks is causing her symptoms. Do not think she requires any emergent imaging or laboratory testing at this time. Her headache is improved in the emergency department. FINAL IMPRESSION 1. Headache 2. Vomiting I, Dr. Nancy Gayle, personally performed the services described in this documentation , as scribed by Gregory Mckeon in my presence, and it is both accurate and complete. Nancy Gayle MD 09/14/15 0602 documented in this encounter Plan of Treatment Not on filedocumented as of this encounter Visit Diagnoses Diagnosis Headache Vomiting Vomiting alone documented in this encounter Care Teams Paste Worker Relationship Specialty Start Date End Date No Ref-Primary, Physician PCP - General 02/23/14 documented as of this encounter
--- OUTSIDE RECORDS SUMMARY | 2021-10-01 16:52 | XMS_ITS | Encounter Summary ---
:1995 Author Organization [place] Address [address] [place] [address] Care Team Providers Name Role Phone No Ref-Primary Primary Care Provider Olga Ibarra DO Unavailable Tray Lucas MD Unavailable Deandre Ramos APRN Unavailable Olga Ibarra DO Unavailable Reason for Visit Reason Comments Vomiting started yesterday Encounter Details Date Type Department Care Team Description 03/08/2015 Office Visit - [facility] Yu Pritchett MD [facility] [place] [address] [place] [address] Gastroenteritis, acute; [facility] Provider, Historical Vomiting; Sasha Acute nonintractable headach e, unspecified headache type [address] [facility] [address] [place] [address] [place] [address] Social History Tobacco Use Types Packs/Day [...] - - Weight 63.2 kg (139 lb 7 oz) 03/08/2015 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 1. Gastroenteritis, acute 2. Vomiting 3. Acute nonintractable headache, unspecified headache type Plan: We discussed symptomatic care with liquid diet and advancing slowly using small sips rather than large quantities. She asked about an alternative pain reliever to Tylenol. I recommended against ibuprofen since, in light of all the vomiting, that is likely to induce a significant gastritis or esophagitis. I recommended that she use extra strength Tylenol, 2 tablets every 8 hours as needed. They can use the antacid of their choice if she develops heartburn. Follow-up as needed. Subjective: This is a 19 y.o.female who presents for an acute gastrointestinal illness. Her symptoms started yesterday. She has vomited 6 times. She has not had any diarrhea although she feels likeshe has the urge to defecate. She has not had a fever. She has a severe headache which comes and goes. Occasionally she has a sneeze or cough but they are not prominent symptoms. She feels like shehas a slight wheeze and chest pain. She also describes a twitch sensation in the right side of her chest. She has some lower abdominal discomfort bilaterally that radiates up into the epigastrium. Objective: BP 100/62 Pulse 84 Temp(Src) 98.1 ??F (36.7 ??C) (Oral) Resp 24 Ht 5' 1.75 (1.568 m) Wt 139 lb 7 oz (63.248 kg) BMI 25.72 kg/m2 History Smoking status ??? Never Smoker Smokeless tobacco ??? Never Used Physical Exam: She is alert in no obvious distress. She has no nasal congestion. TMs and ear canals are normal. Oropharynx is clear without inflammation or exudate. Neck is supple with full range of motion and without adenopathy. Heart has a regular rate and rhythm without murmur, rub, or gallop. Lungs are clear with good airflow, no wheezing, rales, or rhonchi. Abdomen is soft and nondistended with normal bowel sounds throughout. She has mild tenderness which is increased a little in the left lower quadrant but not to a severe degree. There is no rebound or guarding, no palpable masses or hepatosplenomegaly. Current Outpatient Prescriptions Medication Sig Dispense Refill ??? albuterol (PROAIR HFA) 90 mcg/actuation inhaler Inhale 2 puffs every 6 (six) hours as needed forwheezing. ??? desogestrel-ethinyl estradiol (RECLIPSEN, 28,) 0.15-30 mg-mcg per tablet TAKE ONE TABLET BY MOUTH EVERY DAY 84 tablet 3 ??? EPIPEN 2-ISABELLE 0.3 mg/0.3 mL (1:1,000) atIn TAKE DIRECTED FOR ALLERGIC REACTION 2 Device 4 ??? escitalopram oxalate (LEXAPRO) 10 MG tablet Take 3 mg by mouth daily. ??? QUEtiapine (SEROQUEL) 50 MG tablet Take 50 mg by mouth bedtime. ??? budesonide-formoterol (SYMBICORT) 80-4.5 mcg/actuation inhaler Inhale 2 puffs 2 (two) times a day. ??? ibuprofen 200 mg cap Take 600 mg by mouth as needed. No current facility-administered medications for this visit. Yu Pritchett M.D. documented in this encounter Plan of Treatment Not on filedocumented as of this encounter Visit Diagnoses Diagnosis Gastroenteritis, acute Other and unspecified noninfectious razia roenteritis and colitis Vomiting Vomiting alone Acute nonintractable headache, unspecifi ed headache type documented in this encounter Additional Health Concerns Infection Onset Date Last Indicated Resolved Time Rule Out COVID-19 12/17/2019 12/17/2019 12/18/2019 6: 16 PM CDT documented as of this encounter Care Teams Personal Caregiver Relationship Specialty Start Date End Date No Ref-Primary, Physician PCP - General 02/23/14 Inga Ibarra DO Assigned OBGYN Provider 01/06/20 06/09/[address] [place] [address] Dottie Lucas MD Assigned OBGYN Provider 06/10/20 06/16/[address] [place] [address] Elva Ramos APRN CNM Assigned OBGYN Provider 07/01/20 11/10/[address] [place] [address] Inga Ibarra DO Assigned OBGYN Provider 06/17/20 06/30/[address] [place] [address] documented as of this encounter
--- OUTSIDE RECORDS SUMMARY | 2021-10-01 16:52 | XMS_ITS | Encounter Summary ---
:1995 Author Organization [place] Address [address] [place] [address] Care Team Providers Name Role Phone No Ref-Primary Primary Care Provider Olga Ibarra DO Unavailable Tray Lucas MD Unavailable Deandre Ramos APRN Unavailable Olga Ibarra DO Unavailable Reason for Visit Reason Comments Pain pt punched a wall today - L t hand pain Encounter Details Date Type Department Care Team Description 04/26/2015 Office Visit - [facility] Farhana Jaeger, Left hand pain; [facility] Sherry FITZGERALD Hand injury, left, initial encounter [facility] [address] [facility] [address] [place] [place] [address] [address] [place], [place] [phone] (Work) [phone] Social History Tobacco Use Types Packs/Day Years [...] - Inhaled Oxygen Concentration - - Weight 62.1 kg (137 lb) 04/26/2015 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 female Accompanied by MOM- Larissa Chief Complaint Patient presents with ??? Pain pt punched a wall today - Lt hand pain Punched wall at 1:45 pm today. Did feel pain until about 30 minutes later because she was having an anxiety attack. Within the hour she began to feel pain. Rates pain from 6-past 12/23. She is left handed. Patient denies any numbness or tingling in her left hand. Patient admits that she is left-hand dominant. Review of Systems MS - Neuro - see HPI Allergies Reviewed Medications Reviewed Problem List Reviewed Medical History Reviewed Objective: BP 118/64 Pulse 93 Temp(Src) 98.2 ??F (36.8 ??C) (Oral) Resp 24 Ht 5' 2 (1.575 m) Wt 137 lb (62.143 kg) BMI 25.05 kg/m2 SpO2 98% Gen - Pt in NAD MS - right hand - no swelling or deformity-full range of motion Left hand-moderate swelling over the lateral aspect of the fifth metacarpal metacarpal area with moderate decreased flexion and pretty intact extension of fingers Pulses- radial pulses are intact and equal No results found for this visit on 04/26/15. Xr Hand Left 3 Or More Vws 04/26/2015 XR HAND LEFT 3 OR MORE VW04/26/2015 3:56 PMINDICATION: Left hand pain due to injury.COMPARISON: None.FINDINGS: There is a nondisplaced oblique fracture of the proximal metaphysis and diaphysis of the fifth metacarpal. Alignment appears satisfactory. No additional fractures are demonstrated.NOTE: ABNORMAL REPORTTHE DICTATION ABOVE DESCRIBES AN ABNORMALITY FOR WHICH FOLLOW-UP IS NEEDED.This report was electronically interpreted by: Dr. Adán Renee MD ON 04/26/2015 at 16:07 Radiologist's report discussed day of visit. Assessment - Plan 1. Fracture of fifth metacarpal bone of left hand, closed fracture, initial encounter Better splint applied after some padding applied initially then wrapped with Km wrap - HYDROcodone-acetaminophen 5-325 mg per tablet; Take 1-2 tablets by mouth every 6 (six) hours as needed for pain. Dispense: 16 tablet; Refill: 0 2. Left hand pain - XR Hand Left 3 or More VWS; Future 3. Hand injury, left, initial encounter Patient Instructions 1. Follow up with [facility] on 04/30 2. Do not take any ibuprofen, advil, motrin or aleve ( naprosyn) until you discuss with the orthopedic provider 3. Call our clinic number with any questions Why do I have a cast or splint? -- Your doctor gave you a cast or splint to treat your broken bone. The cast or splint will reduce your pain and protect your bone as it heals. Why is it important to take care of a cast or splint? -- It???s important to take care of a cast or splint so that the skin under the cast doesn???t get hurt or infected. Can I get my cast wet? -- It depends on what kind of cast you have. Your doctor will tell you if youhave a waterproof cast that can get wet. Otherwise, you should not get your cast wet. To keep your cast dry when you bathe, cover it with two plastic bags, and tape each bag -- separately -- to your skin with duct tape. Then keep your cast outside the tub or shower when you wash your body. In young children, use a rubber band at the top of each plastic bag instead of tape. For them, removing the tape from the skin would hurt too much. Some people buy a waterproof cast cover to use when bathing. If you use a waterproof cast cover, it???s still a good idea to keep your cast outside thetub or shower. These covers are not completely waterproof. If your cast gets wet, you can dry it with a wheelchair rental clerk set to the cool setting. Do not use a warm or hot setting, because those settings can burn the skin. You can also use a vacuum white work cleaner that has ahose to help dry your cast. Put the hose next to your cast so that you suck wet air out of the cast. What are other ways I can take care of my cast? -- To take care of your cast, you can: ?Keep your cast clean and avoid getting dirt or sand inside it ?Not put anything inside your cast ?Not put powder or lotion on the skin near your cast ?Not pull the lining out from inside the cast ?Cover your cast when you eat, so that it doesn???t get dirty What if I have pain under my cast during the first few days? -- If you have pain during the first few days, you can: ?Put ice on the cast - Use a bag of ice, bag of frozen peas, or cold gel pack every 1 to 2 hours, for 15 minutes each time. Put a thin towel between the ice (or other cold object) and your skin. ?Keep your cast raised (for example, on pillows) to help reduce swelling - To reduce swelling and pain, your cast needs to be raised above the level of your heart. ?Take medicine to relieve your pain - If your doctor prescribed pain-relieving medicine, you can take that. You can also ask your doctor or nurse about taking [id number] medicines, such as acetaminophen (sample brand name: Tylenol) or ibuprofen (sample brand names: Advil, Motrin). What if the skin under my cast itches? -- If your skin itches, you can use a wheelchair rental clerk set to the cool setting to blow air inside the cast. Do not put anything in your cast to scratch the skin. Should I see a doctor or nurse? -- See your doctor or nurse right away if: ?You have severe pain or pain that is getting worse ?You have sores or cuts on the skin under the cast ?Your cast smells bad, feels too tight, or cracks ?You have swelling that causes pain ?You are unable to move your fingers or toes ?Your fingers or toes are blue or cold ?Your cast becomes soaking wet or you are unable to dry it MUFF ASSEMBLER documented in this encounter Plan of Treatment Not on filedocumented as of this encounter Visit Diagnoses Diagnosis Left hand pain Pain in limb Hand injury, left, initial encounter documented in this encounter Additional Health Concerns Infection Onset Date Last Indicated Resolved Time Rule Out COVID-19 12/17/2019 12/17/2019 12/18/2019 6: 16 PM CDT documented as of this encounter Care Teams Wiring Mechanic Relationship Specialty Start Date End Date No Ref-Primary, Physician PCP - General 02/23/14 sInga DO Assigned OBGYN Provider 01/06/20 06/09/[address] [place], [place] [address] Dottie Lucas MD Assigned OBGYN Provider 06/10/20 06/16/[address] [place], [place] [id number] Elva Ramos APRN CNM Assigned OBGYN Provider 07/01/20 11/10/[address] [place], [place] [id number] sInga DO Assigned OBGYN Provider 06/17/20 06/30/[address] [place], [place] [address] documented as of this encounter
--- OUTSIDE RECORDS SUMMARY | 2021-10-01 16:52 | XMS_ITS | Encounter Summary ---
:1995 Author Organization [place] Address [address] [place] [address] Care Team Providers Name Role Phone No Ref-Primary Primary Care Provider Olga Ibarra DO Unavailable Tray Lucas MD Unavailable Deandre Ramos APRN Unavailable Olga Ibarra DO Unavailable Jay Sapp MD Unavailable Encounter Details Date Type Department Care Team Description 06/06/2015 Records - [facility] CONVERSION Scan, Non-Provider Social History Tobacco Use Types Packs/Day Years [...] documented as of this encounter Care Teams Rfp Writer Relationship Specialty Start Date End Date No Ref-Primary, Physician PCP - General 02/23/14 Masters, Inga Espinoza DO Assigned OBGYN Provider 01/06/20 06/09/[address] [place] [address] Dottie Lucas MD Assigned OBGYN Provider 06/10/20 06/16/[address] [place] [address] Elva Ramos APRN CN Assigned OBGYN Provider 07/01/20 11/10/[address] [place] [address] sInga DO Assigned OBGYN Provider 06/17/20 06/30/20 [address] [place], [place] [address] Nicolasa Sapp MD Assigned OBGYN Provider 11/11/20 [address] [place] [id number] documented as of this encounter
--- OUTSIDE RECORDS SUMMARY | 2021-10-01 16:53 | XMS_ITS | Encounter Summary ---
:1995 Author Organization [place] Address [address] [place] [address] Care Team Providers Name Role Phone No Ref-Primary Primary Care Provider Olga Ibarra DO Unavailable Tray Lucas MD Unavailable Deandre Ramos APRN CN Unavailable Olga Ibarra DO Unavailable Jay Sapp MD Unavailable Encounter Details Date Type Department Care Team Description 06/25/2013 Records - [facility] CONVERSION Scan, Non-Provider [...] documented as of this encounter Care Teams Nude Model Relationship Specialty Start Date End Date No Ref-Primary, Physician PCP - General 02/23/14 Inga Ibarra DO Assigned OBGYN Provider 01/06/20 06/09/[address] [place] [address] Dottie Lucas MD Assigned OBGYN Provider 06/10/20 06/16/[address] [place] [address] Elva Ramos APRN CNM Assigned OBGYN Provider 07/01/20 11/10/[address] [place] [address] s, Inga Espinoza DO Assigned OBGYN Provider 06/17/20 06/30/[address] [place] [address] Nicolasa Sapp MD Assigned OBGYN Provider 11/11/20 [address] [facility] [place] [address] documented as of this encounter
--- OUTSIDE RECORDS SUMMARY | 2021-10-01 16:53 | XMS_ITS | Encounter Summary ---
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 Height - - Body Mass Index - - documented in this encounter Plan of Treatment Not on filedocumented as of this encounter Visit Diagnoses Not on filedocumented in this encounter Additional Health Concerns Infection Onset Date Last Indicated Resolved Time Rule Out COVID-19 12/17/2019 12/17/2019 12/18/2019 6: 16 PM CDT documented as of this encounter Care Teams Repairer Sash And Door Relationship Specialty Start Date End Date No Ref-Primary, Physician PCP - General 02/23/14 Inga Ibarra DO Assigned OBGYN Provider 01/06/20 06/09/20 [address] [place] [address] Dottie Lucas MD Assigned OBGYN Provider 06/10/20 06/16/20 [address] [place] [address] Elva Ramos APRN CNM Assigned OBGYN Provider 07/01/20 11/10/20 [address] [place] [address] sInga DO Assigned OBGYN Provider 06/17/20 06/30/20 [address] [place] [address] documented as of this encounter
--- OUTSIDE RECORDS SUMMARY | 2021-10-01 16:53 | XMS_ITS | Encounter Summary ---
:1995 Author Organization [place] Address [address] [place] [address] Care Team Providers Name Role Phone No Ref-Primary Primary Care Provider Olga Ibarra DO Unavailable Tray Lucas MD Unavailable Deandre Ramos APRN Unavailable Olga Ibarra DO Unavailable Encounter Details Date Type Department Care Team Description 03/29/2013 Records - [facility] CONVERSION Provider, Frank gauilera Social History Tobacco Use Types Packs/Day Years [...] Concentration - - Weight - - Height 157.5 cm (5' 2) 03/29/2013 4:25 PM GANDY DANCER Body Mass Index - - documented in this encounter Plan of Treatment Not on filedocumented as of this encounter Visit Diagnoses Not on filedocumented in this encounter Additional Health Concerns Infection Onset Date Last Indicated Resolved Time Rule Out COVID-19 12/17/2019 12/17/2019 12/18/2019 6: 16 PM CDT documented as of this encounter Care Teams Salesperson Burial Plots Relationship Specialty Start Date End Date No Ref-Primary, Physician PCP - General 02/23/14 Inga Ibarra DO Assigned OBGYN Provider 01/06/20 06/09/20 [address] [place] [address] Dottie Lucas MD Assigned OBGYN Provider 06/10/20 06/16/[address] [place] [address] Elva Ramos APRN CNM Assigned OBGYN Provider 07/01/20 11/10/[address] [place] [address] Inga Ibarra DO Assigned OBGYN Provider 06/17/20 06/30/20 [address] [place] [address] documented as of this encounter
--- OUTSIDE RECORDS SUMMARY | 2021-10-01 16:53 | XMS_ITS | Encounter Summary ---
:1995 Author Organization [place] Address [address] [place] [address] Care Team Providers Name Role Phone No Ref-Primary Primary Care Provider Olga Ibarra DO Unavailable Tray Lucas MD Unavailable Deandre Ramos APRN Unavailable Olga Ibarra DO Unavailable Encounter Details Date Type Department Care Team Description 07/21/2013 Records - [facility] CONVERSION Provider, Frank [...] - Inhaled Oxygen Concentration - - Weight 66.2 kg (146 lb) 07/21/2013 4:04 PM CDT Height - - Body Mass Index - - documented in this encounter Plan of Treatment Not on filedocumented as of this encounter Visit Diagnoses Not on filedocumented in this encounter Additional Health Concerns Infection Onset Date Last Indicated Resolved Time Rule Out COVID-19 12/17/2019 12/17/2019 12/18/2019 6: 16 PM CDT documented as of this encounter Care Teams Manager Food Beverage Relationship Specialty Start Date End Date No Ref-Primary, Physician PCP - General 02/23/14 Inga Ibarra DO Assigned OBGYN Provider 01/06/20 06/09/20 [address] [place] [address] Dottie Lucas MD Assigned OBGYN Provider 06/10/20 06/16/[address] [place] [address] Elva Ramos APRN CNM Assigned OBGYN Provider 07/01/20 11/10/[address] [place] [address] Inga Ibarra DO Assigned OBGYN Provider 06/17/20 06/30/20 [address] [place] [address] documented as of this encounter
--- OUTSIDE RECORDS SUMMARY | 2021-10-01 16:53 | XMS_ITS | Encounter Summary ---
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 Height - - Body Mass Index 27.18 03/25/2012 3:33 PM PYROTECHNIST Body Mass Index Percentile 94.60 % 03/25/2012 3:[address] Growth Chart: [facility] (Girls, 2-20 Years) documented in this encounter Plan of Treatment Not on filedocumented as of this encounter Visit Diagnoses Not on filedocumented in this encounter Additional Health Concerns Infection Onset Date Last Indicated Resolved Time Rule Out COVID-19 12/17/2019 12/17/2019 12/18/2019 6: 16 PM CDT documented as of this encounter Care Teams Account Representative Relationship Specialty Start Date End Date No Ref-Primary, Physician PCP - General 02/23/14 sInga DO Assigned OBGYN Provider 01/06/20 06/09/20 [address] [place] [id number] Dottie Lucas MD Assigned OBGYN Provider 06/10/20 06/16/20 [address] [place] [address] Elva Ramos APRN CNM Assigned OBGYN Provider 07/01/20 11/10/[address] [place] [id number] Inga Ibarra DO Assigned OBGYN Provider 06/17/20 06/30/20 [address] [place] [address] documented as of this encounter
--- OUTSIDE RECORDS SUMMARY | 2021-10-01 16:53 | XMS_ITS | Encounter Summary ---
:1995 Author Organization [place] Address [address] [place] [address] Care Team Providers Name Role Phone No Ref-Primary Primary Care Provider Olga Ibarra DO Unavailable Tray Lcuas MD Unavailable Deandre Ramos APRN Unavailable Olga Ibarra DO Unavailable Encounter Details Date Type Department Care Team Description [facility]/2013 [facility], Frank aguilera Social History [...] - Inhaled Oxygen Concentration - - Weight 68 kg (150 lb) 10/20/2013 4:11 PM CDT Height - - Body Mass Index 27.44 10/14/2013 10:37 AM CDT Body Mass Index Percentile 93.10 % 10/20/2013 4:11 PM C DT Growth Chart: [facility] (Girls, 2-20 Years) documented in this encounter Plan of Treatment Not on filedocumented as of this encounter Visit Diagnoses Not on filedocumented in this encounter Additional Health Concerns Infection Onset Date Last Indicated Resolved Time Rule Out COVID-19 12/17/2019 12/17/2019 12/18/2019 6: 16 PM CDT documented as of this encounter Care Teams Hemstitching Machine Operator Relationship Specialty Start Date End Date No Ref-Primary, Physician PCP - General 02/23/14 sInga DO Assigned OBGYN Provider 01/06/20 06/09/[address] [place] [id number] Dottie Lucas MD Assigned OBGYN Provider 06/10/20 06/16/[address] [place] [id number] Elva Ramos APRN CNM Assigned OBGYN Provider 07/01/20 11/10/[address] [place] [address] Inga Ibarra DO Assigned OBGYN Provider 06/17/20 06/30/20 [address] [place] [address] documented as of this encounter
--- OUTSIDE RECORDS SUMMARY | 2021-10-01 16:53 | XMS_ITS | Encounter Summary ---
:1995 Author Organization [place] Address [address] [place] [address] Care Team Providers Name Role Phone No Ref-Primary Primary Care Provider Olga Ibarra DO Unavailable Tray Lucas MD Unavailable Deandre Ramos APRN Unavailable Olga Ibarra DO Unavailable Encounter Details Date Type Department Care Team Description 10/06/2012 [facility] CONVERSION Provider, Frank aguilera [...] - Inhaled Oxygen Concentration - - Weight 63.8 kg (140 lb 9 oz) 10/06/2012 3:08 PM CDT Height - - Body Mass Index 25.71 10/06/2012 3:08 PM CDT Body Mass Index Percentile 91.06 % 10/06/2012 3:08 PM C DT Growth Chart: [facility] (Girls, 2-20 Years) documented in this encounter Plan of Treatment Not on filedocumented as of this encounter Visit Diagnoses Not on filedocumented in this encounter Additional Health Concerns Infection Onset Date Last Indicated Resolved Time Rule Out COVID-19 12/17/2019 12/17/2019 12/18/2019 6: 16 PM CDT documented as of this encounter Care Teams Paralegals Relationship Specialty Start Date End Date No Ref-Primary, Physician PCP - General 02/23/14 sInga DO Assigned OBGYN Provider 01/06/20 06/09/20 [address] [place] [id number] Dottie Lucas MD Assigned OBGYN Provider 06/10/20 06/16/20 [address] [place] [id number] Elva Ramos APRN CNM Assigned OBGYN Provider 07/01/20 11/10/[address] [place] [id number] Inga Ibarra DO Assigned OBGYN Provider 06/17/20 06/30/20 [address] [place] [id number] documented as of this encounter
--- OUTSIDE RECORDS SUMMARY | 2021-10-01 16:53 | XMS_ITS | Encounter Summary ---
:1995 Author Organization [place] Address [address] [place] [address]656 Care Team Providers Name Role Phone No Ref-Primary Primary Care Provider Olga Ibarra DO Unavailable Tray Lucas MD Unavailable Deandre Ramos APRN Unavailable Olga Ibarra DO Unavailable Encounter Details Date Type Department Care Team Description 04/07/2012 Records - [facility] CONVERSION Provider, Frank aguilera Social History Tobacco [...] Concentration - - Weight - - Height 156.8 cm (5' 1.75) 04/07/2012 8:55 AM CHILD CARE NURSE Body Mass Index - - documented in this encounter Plan of Treatment Not on filedocumented as of this encounter Visit Diagnoses Not on filedocumented in this encounter Additional Health Concerns Infection Onset Date Last Indicated Resolved Time Rule Out COVID-19 12/17/2019 12/17/2019 12/18/2019 6: 16 PM CDT documented as of this encounter Care Teams Human Resources Benefits Assistant Relationship Specialty Start Date End Date No Ref-Primary, Physician PCP - General 02/23/14 Inga Ibarra DO Assigned OBGYN Provider 01/06/20 06/09/20 [address] [place], [place] [address] Dottie Lucas MD Assigned OBGYN Provider 06/10/20 06/16/20 [address] [place] [address] Elva Ramos APRN CNM Assigned OBGYN Provider 07/01/20 11/10/[address] [place] [address] s, Inga Espinoza DO Assigned OBGYN Provider 06/17/20 06/30/20 [address] [place] [address] documented as of this encounter
--- OUTSIDE RECORDS SUMMARY | 2021-10-01 16:53 | XMS_ITS | Encounter Summary ---
:1995 Author Organization [place] Address [address] [place] [address] Care Team Providers Name Role Phone No Ref-Primary Primary Care Provider Olga Ibarra DO Unavailable Tray Lucas MD Unavailable Deandre Ramos APRN, CNM Unavailable Olga Ibarra DO Unavailable Encounter Details Date Type Department Care Team Description 07/25/2012 Records - [facility] Provider, Perez pascual [facility] Emergency Maryann m [address] [place] [address] Social History Tobacco Use Types Packs/Day Years [...] Priority Date/Time Associated Diagnosis Comme nts XR NECK SOFT TISSUE Routine 07/25/2012 12:00 AM R esults for this CDT procedure are i n the results section. documented in this encounter Results XR Neck Soft Tissue (07/25/2012 12:00 AM CDT) Anatomical Region Laterality Modality Neck Other Specimen (Source) Anatomical Location Collection Method / Collectio n Time Received Time / Laterality Volume Narrative 07/25/2012 12:00 AM CDT See Historical Hospital Medical Record f or documentation Procedure Note Provider, Historical - 08/17/2020Formatt ing of this note might be different from the original. See Historical Hospital Medical Record f or documentation Historical Provider IMG DIAGNOSTIC IMAGING ORDER SHEY documented in this encounter Visit Diagnoses Not on filedocumented in this encounter Additional Health Concerns Infection Onset Date Last Indicated Resolved Time Rule Out COVID-19 12/17/2019 12/17/2019 12/18/2019 6: 16 PM CDT documented as of this encounter Care Teams Chemical Research Worker Relationship Specialty Start Date End Date No Ref-Primary, Physician PCP - General 02/23/14 sInga DO Assigned OBGYN Provider 01/06/20 06/09/[address] [place] [address] Dottie Lucas MD Assigned OBGYN Provider 06/10/20 06/16/[address] [place] [address] Elva Ramos APRN CNM Assigned OBGYN Provider 07/01/20 11/10/[address] [place] [address] Inga Ibarra DO Assigned OBGYN Provider 06/17/20 06/30/[address] [place], [place] 254755 documented as of this encounter
--- OUTSIDE RECORDS SUMMARY | 2021-10-01 16:53 | XMS_ITS | Encounter Summary ---
:1995 Author Organization [place] Address [address] [place] [address] Care Team Providers Name Role Phone No Ref-Primary Primary Care Provider Olga Ibarra DO Unavailable Tray Lucas MD Unavailable Deandre Ramos APRN Unavailable Olga Ibarra DO Unavailable Encounter Details Date Type Department Care Team Description 03/25/2012 Records - [facility] CONVERSION Provider, Frank aguilera Social History [...] - - Height 156.8 cm (5' 1.75) 03/25/2012 3:33 PM PETROLEUM REFINERY WORKER Body Mass Index - - documented in this encounter Plan of Treatment Not on filedocumented as of this encounter Visit Diagnoses Not on filedocumented in this encounter Additional Health Concerns Infection Onset Date Last Indicated Resolved Time Rule Out COVID-19 12/17/2019 12/17/2019 12/18/2019 6: 16 PM CDT documented as of this encounter Care Teams Solution Design Engineer Relationship Specialty Start Date End Date No Ref-Primary, Physician PCP - General 02/23/14 Inga Ibarra DO Assigned OBGYN Provider 01/06/20 06/09/20 [address] [place], [place] [address] Dottie Lucas MD Assigned OBGYN Provider 06/10/20 06/16/20 [address] [place] [address] Elva Ramos APRN CNM Assigned OBGYN Provider 07/01/20 11/10/[address] [place] [address] s, Inga Espinoza DO Assigned OBGYN Provider 06/17/20 06/30/20 [address] [place] [address] documented as of this encounter
--- OUTSIDE RECORDS SUMMARY | 2021-10-01 16:53 | XMS_ITS | Encounter Summary ---
:1995 Author Organization [place] Address [address] [place] [address] Care Team Providers Name Role Phone No Ref-Primary Primary Care Provider Olga Ibarra DO Unavailable Tray Lucas MD Unavailable Deandre Ramos APRN Unavailable Olga Ibarra DO Unavailable Encounter Details Date Type Department Care Team Description 10/14/2013 [facility] Provider, Frank aguilera Social [...] - Inhaled Oxygen Concentration - - Weight 67.2 kg (148 lb 4 oz) 10/14/2013 10:37 AM CDT Height - - Body Mass Index 27.12 10/14/2013 10:37 AM CDT Body Mass Index Percentile 92.54 % 10/14/2013 10:37 AM C DT Growth Chart: [facility] (Girls, 2-20 Years) documented in this encounter Plan of Treatment Not on filedocumented as of this encounter Visit Diagnoses Not on filedocumented in this encounter Additional Health Concerns Infection Onset Date Last Indicated Resolved Time Rule Out COVID-19 12/17/2019 12/17/2019 12/18/2019 6: 16 PM CDT documented as of this encounter Care Teams Accounts Payable Administrator Relationship Specialty Start Date End Date No Ref-Primary, Physician PCP - General 02/23/14 sInga DO Assigned OBGYN Provider 01/06/20 06/09/20 [address] [place] [address] Dottie Lucas MD Assigned OBGYN Provider 06/10/20 06/16/20 [address] [place] 728385 Elva Ramos APRN CNM Assigned OBGYN Provider 07/01/20 11/10/[address] [place] 117375 Inga Ibarra DO Assigned OBGYN Provider 06/17/20 06/30/20 [address] [place] 242105 documented as of this encounter
--- OUTSIDE RECORDS SUMMARY | 2021-10-01 16:53 | XMS_ITS | Encounter Summary ---
:1995 Author Organization [place] Address [address] [place] [address] Care Team Providers Name Role Phone No Ref-Primary Primary Care Provider Olga Ibarra DO Unavailable Tray Lucas MD Unavailable Deandre Ramos APRN Unavailable Olga Ibarra DO Unavailable Encounter Details Date Type Department Care Team Description 12/13/2012 Records - [facility] HE CONVERSION Provider, Frank [...] - - Height 157.5 cm (5' 2) 12/13/2012 11:46 AM CDT Body Mass Index - - documented in this encounter Plan of Treatment Not on filedocumented as of this encounter Visit Diagnoses Not on filedocumented in this encounter Additional Health Concerns Infection Onset Date Last Indicated Resolved Time Rule Out COVID-19 12/17/2019 12/17/2019 12/18/2019 6: 16 PM CDT documented as of this encounter Care Teams Refrigerator Cabinetmaker Relationship Specialty Start Date End Date No Ref-Primary, Physician PCP - General 02/23/14 Inga Ibarra DO Assigned OBGYN Provider 01/06/20 06/09/20 [address] [place], [place] [address] Dottie Lucas MD Assigned OBGYN Provider 06/10/20 06/16/20 [address] [place] [address] Elva Ramos APRN CNM Assigned OBGYN Provider 07/01/20 11/10/[address] [place] [address] sInga DO Assigned OBGYN Provider 06/17/20 06/30/20 [address] [place] [address] documented as of this encounter
--- OUTSIDE RECORDS SUMMARY | 2021-10-01 16:53 | XMS_ITS | Encounter Summary ---
:1995 Author Organization [place] Address [address] [place] [address] Care Team Providers Name Role Phone No Ref-Primary Primary Care Provider Olga Ibarra DO Unavailable Tray Lucas MD Unavailable Deandre Ramos APRN Unavailable Olga Ibarra DO Unavailable Encounter Details Date Type Department Care Team Description 09/13/2013 Ambulatory - [facility] Yu Pritchett MD [facility] [address] [facility] [place] [id number] [facility] Hayden Baez Provider, Historical [address] [facility] [address], [address] [place] [address] Social History Tobacco [...] documented as of this encounter Care Teams Acid Purifier Relationship Specialty Start Date End Date No Ref-Primary, Physician PCP - General 02/23/14 sInga DO Assigned OBGYN Provider 01/06/20 06/09/[address] [place], [place] 109905 Dottie Lucas MD Assigned OBGYN Provider 06/10/20 06/16/[address] [place], [place] 864845 Elva Ramos APRN CNM Assigned OBGYN Provider 07/01/20 11/10/[address] [place], [place] 00[address]15 Inga Ibarra DO Assigned OBGYN Provider 06/17/20 06/30/[address] [place], [place] 452725 documented as of this encounter
--- OUTSIDE RECORDS SUMMARY | 2021-10-01 16:53 | XMS_ITS | Encounter Summary ---
:1995 Author Organization [place] Address [address] [place] [address] Care Team Providers Name Role Phone No Ref-Primary Primary Care Provider Olga Ibarra DO Unavailable Tray Lucas MD Unavailable Deandre Ramos APRN Unavailable Olga Ibarra DO Unavailable Encounter Details Date Type Department Care Team Description 12/16/2013 Records - [facility] HE CONVERSION Provider, Frank [...] - - Height 157.5 cm (5' 2) 12/16/2013 11:04 AM CDT Body Mass Index - - documented in this encounter Plan of Treatment Not on filedocumented as of this encounter Visit Diagnoses Not on filedocumented in this encounter Additional Health Concerns Infection Onset Date Last Indicated Resolved Time Rule Out COVID-19 12/17/2019 12/17/2019 12/18/2019 6: 16 PM CDT documented as of this encounter Care Teams Communication And Outreach Manager Relationship Specialty Start Date End Date No Ref-Primary, Physician PCP - General 02/23/14 Inga Ibarra DO Assigned OBGYN Provider 01/06/20 06/09/20 [address] [place], [place] [address] Dottie Lucas MD Assigned OBGYN Provider 06/10/20 06/16/20 [address] [place] [address] Elva Ramos APRN CNM Assigned OBGYN Provider 07/01/20 11/10/[address] [place] [address] sInga DO Assigned OBGYN Provider 06/17/20 06/30/20 [address] [place] [address] documented as of this encounter
--- OUTSIDE RECORDS SUMMARY | 2021-10-01 16:53 | XMS_ITS | Encounter Summary ---
:1995 Author Organization [place] Address [address] [place] [address] Care Team Providers Name Role Phone No Ref-Primary Primary Care Provider Olga Ibarra DO Unavailable Tray Lucas MD Unavailable Deandre Ramos APRN Unavailable Olga Ibarra DO Unavailable Encounter Details Date Type Department Care Team Description 11/23/2013 Records - [facility] CONVERSION Provider, Frank aguilera Social History [...] - Inhaled Oxygen Concentration - - Weight 68.4 kg (150 lb 14.4 oz) 11/23/2013 9:29 AM CDT Height - - Body Mass Index - - documented in this encounter Plan of Treatment Not on filedocumented as of this encounter Visit Diagnoses Not on filedocumented in this encounter Additional Health Concerns Infection Onset Date Last Indicated Resolved Time Rule Out COVID-19 12/17/2019 12/17/2019 12/18/2019 6: 16 PM CDT documented as of this encounter Care Teams Senior Corporate Strategy Manager Relationship Specialty Start Date End Date No Ref-Primary, Physician PCP - General 02/23/14 Inga Ibarra DO Assigned OBGYN Provider 01/06/20 06/09/[address] [place] [address] Dottie Lucas MD Assigned OBGYN Provider 06/10/20 06/16/[address] [place] [address] Elva Ramos APRN CNM Assigned OBGYN Provider 07/01/20 11/10/[address] [place] [address] sInga DO Assigned OBGYN Provider 06/17/20 06/30/[address] [place] [address] documented as of this encounter
--- OUTSIDE RECORDS SUMMARY | 2021-10-01 16:53 | XMS_ITS | Encounter Summary ---
:1997 Author Organization [place] Address [address] [place] [address] Care Team Providers Name Role Phone No Ref-Primary Primary Care Provider Olga Ibarra DO Unavailable Tray Lucas MD Unavailable Deandre Ramos APRN Unavailable Olga Ibarra DO Unavailable Encounter Details Date Type Department Care Team Description 12/16/2013 [facility], Frank aguilera Social [...] - Inhaled Oxygen Concentration - - Weight 67.7 kg (149 lb 3 oz) 12/16/2013 11:04 AM CDT Height - - Body Mass Index 27.29 12/16/2013 11:04 AM CDT Body Mass Index Percentile 92.63 % 12/16/2013 11:04 AM C DT Growth Chart: [facility] (Girls, 2-20 Years) documented in this encounter Plan of Treatment Not on filedocumented as of this encounter Visit Diagnoses Not on filedocumented in this encounter Additional Health Concerns Infection Onset Date Last Indicated Resolved Time Rule Out COVID-19 12/17/2019 12/17/2019 12/18/2019 6: 16 PM CDT documented as of this encounter Care Teams Lens Grinder And Polisher Relationship Specialty Start Date End Date No Ref-Primary, Physician PCP - General 02/23/14 sInga DO Assigned OBGYN Provider 01/06/20 06/09/20 [address] [place] [id number] Dottie Lucas MD Assigned OBGYN Provider 06/10/20 06/16/20 [address] [place] [id number] Elva Ramos APRN CNM Assigned OBGYN Provider 07/01/20 11/10/[address] [place] [id number] Inga Ibarra DO Assigned OBGYN Provider 06/17/20 06/30/20 [address] [place] 729015 documented as of this encounter
--- OUTSIDE RECORDS SUMMARY | 2021-10-01 16:53 | XMS_ITS | Encounter Summary ---
:1997 Author Organization [place] Address [address] [place] [address] Care Team Providers Name Role Phone No Ref-Primary Primary Care Provider Olga Ibarra DO Unavailable Tray Lucas MD Unavailable Deandre Ramos APRN Unavailable Olga Ibarra DO Unavailable Encounter Details Date Type Department Care Team Description 07/26/2012 Records - [facility] CONVERSION Provider, Frank aguilera Social History Tobacco [...] - - Height 156.8 cm (5' 1.75) 07/26/2012 3:17 PM CDT Body Mass Index - - documented in this encounter Plan of Treatment Not on filedocumented as of this encounter Visit Diagnoses Not on filedocumented in this encounter Additional Health Concerns Infection Onset Date Last Indicated Resolved Time Rule Out COVID-19 12/17/2019 12/17/2019 12/18/2019 6: 16 PM CDT documented as of this encounter Care Teams Digital Business Analyst Relationship Specialty Start Date End Date No Ref-Primary, Physician PCP - General 02/23/14 Inga Ibarra DO Assigned OBGYN Provider 01/06/20 06/09/[address] [place] [address] Dottie Lucas MD Assigned OBGYN Provider 06/10/20 06/16/[address] [place] [address] Elva Ramos APRN CNM Assigned OBGYN Provider 07/01/20 11/10/[address] [place] [address] s, Inga Espinoza DO Assigned OBGYN Provider 06/17/20 06/30/[address] [place] [address] documented as of this encounter
--- OUTSIDE RECORDS SUMMARY | 2021-10-01 16:53 | XMS_ITS | Encounter Summary ---
:1997 Author Organization [place] Address [address] [place] [address] Care Team Providers Name Role Phone No Ref-Primary Primary Care Provider Olga Ibarra DO Unavailable Tray Lucas MD Unavailable Deandre Ramos APRN Unavailable Olga Ibarra DO Unavailable Encounter Details Date Type Department Care Team Description 08/31/2012 Records - [facility] CONVERSION Provider, Frank aguilera Social History [...] - - Height 156.8 cm (5' 1.75) 08/31/2012 1:02 PM CDT Body Mass Index - - documented in this encounter Plan of Treatment Not on filedocumented as of this encounter Visit Diagnoses Not on filedocumented in this encounter Additional Health Concerns Infection Onset Date Last Indicated Resolved Time Rule Out COVID-19 12/17/2019 12/17/2019 12/18/2019 6: 16 PM CDT documented as of this encounter Care Teams Horticultural Specialty Grower Field Relationship Specialty Start Date End Date No Ref-Primary, Physician PCP - General 02/23/14 Inga Ibarra DO Assigned OBGYN Provider 01/06/20 06/09/[address] [place] [address] Dottie Lucas MD Assigned OBGYN Provider 06/10/20 06/16/[address] [place] [address] Elva Ramos APRN CNM Assigned OBGYN Provider 07/01/20 11/10/[address] [place] [address] s, Inga Espinoza DO Assigned OBGYN Provider 06/17/20 06/30/[address] [place] [address] documented as of this encounter
--- OUTSIDE RECORDS SUMMARY | 2021-10-01 16:53 | XMS_ITS | Encounter Summary ---
:1995 Author Organization [place] Address [address] [place] [address] Care Team Providers Name Role Phone No Ref-Primary Primary Care Provider Olga Ibarra DO Unavailable Tray Lucas MD Unavailable Deandre Ramos APRN Unavailable Olga Ibarra DO Unavailable Encounter Details Date Type Department Care Team Description 08/20/2012 Records - [facility] HE CONVERSION Provider, Frank aguilera Social History [...] - Inhaled Oxygen Concentration - - Weight 64.7 kg (142 lb 9 oz) 08/20/2012 1:51 PM CDT Height - - Body Mass Index 26.29 08/20/2012 1:51 PM CDT Body Mass Index Percentile 92.56 % 08/20/2012 1:51 PM C DT Growth Chart: [facility] (Girls, 2-20 Years) documented in this encounter Plan of Treatment Not on filedocumented as of this encounter Visit Diagnoses Not on filedocumented in this encounter Additional Health Concerns Infection Onset Date Last Indicated Resolved Time Rule Out COVID-19 12/17/2019 12/17/2019 12/18/2019 6: 16 PM CDT documented as of this encounter Care Teams Kennel Keeper Relationship Specialty Start Date End Date No Ref-Primary, Physician PCP - General 02/23/14 sInga DO Assigned OBGYN Provider 01/06/20 06/09/20 [address] [place] [id number] Dottie Lucas MD Assigned OBGYN Provider 06/10/20 06/16/20 [address] [place] 595155 Elva Ramos APRN CNM Assigned OBGYN Provider 07/01/20 11/10/[address] [place] 495[address] Inga Ibarra DO Assigned OBGYN Provider 06/17/20 06/30/20 [address] [place] [id number] documented as of this encounter
--- OUTSIDE RECORDS SUMMARY | 2021-10-01 16:53 | XMS_ITS | Encounter Summary ---
:1995 Author Organization [place] Address [address] [place] [address] Care Team Providers Name Role Phone No Ref-Primary Primary Care Provider Olga Ibarra DO Unavailable Tray Lucas MD Unavailable Deandre Ramos APRN Unavailable Olga Ibarra DO Unavailable Encounter Details Date Type Department Care Team Description [facility] Hayden Lewis MD [facility] [address] [facility] 69[address] [facility] 100 [facility] S, [place] 100 [place], [place] [address] [facility] [phone] [place], [place] (Work) [phone] Social History Tobacco Use Types Packs/Day [...] Priority Date/Time Associated Diagnosis Comme nts XR FOOT LT G/E 3 VW Routine 12/16/2013 12:05 PM Pain in soft t issues Results for this CDT of limb procedure are i n the results section. documented in this encounter Results XR Foot Left G/E 3 Views (12/16/2013 12:05 PM CDT) Anatomical Region Laterality Modality Foot, Ankle Left Other Specimen (Source) Anatomical Location Collection Method / Collectio n Time Received Time / Laterality Volume Narrative 12/16/2013 1:53 PM CDT XR FOOT LEFT 3 OR MORE VWS1 12:05 PMINDICATION: Foot pain.COMPARISON: NoneFINDINGS: Suture anchors are present over the medial cuneiform and proximal second metatarsal. Alignment appears normal. No acute bone or joint abnormality is demonstrated. No comparison foot films are available. There is no evidence for osteomyelitis.This report was electronically interpreted by: Dr. Adán Renee MD ON 12/16/2013 at 13:53 Procedure Note Heri Renee - 08/18/2020Formatti ng of this note might be different from the original. XR FOOT LEFT 3 OR MORE VWS1 12:0 5 PMINDICATION: Foot pain.COMPARISON: NoneFINDINGS: Suture anchors are present over the medial cuneiform and proximal second metatarsal. Alignment appears normal. No acute bone or joint abnormality is demonstrated. No comparison foot films are available. There is no evidence for osteomyelitis.This report was electronically interpreted by: Dr. Adán Renee MD ON 12/16/2013 at 13:53 Nan Villarreal MD IMG DIAGNOSTIC IMAGING ORDER SHEY documented in this encounter Visit Diagnoses Diagnosis Pain in soft tissues of limb Pain in limb documented in this encounter Additional Health Concerns Infection Onset Date Last Indicated Resolved Time Rule Out COVID-19 12/17/2019 12/17/2019 12/18/2019 6: 16 PM CDT documented as of this encounter Care Teams Car Head Liner Installer Relationship Specialty Start Date End Date No Ref-Primary, Physician PCP - General 02/23/14 sInga DO Assigned OBGYN Provider 01/06/20 06/09/20 [address] [place] [address] Dottie Lucas MD Assigned OBGYN Provider 06/10/20 06/16/20 [address] [facility] [address] [place], [place] [address] Elva Ramos APRN CNM Assigned OBGYN Provider 07/01/20 11/10/20 6525 [facility] [address] [place] [address] Masters, Inga Espinoza DO Assigned OBGYN Provider 06/17/20 06/30/20 [address] [facility] [address] [place] [address] documented as of this encounter
--- OUTSIDE RECORDS SUMMARY | 2021-10-01 16:53 | XMS_ITS | Encounter Summary ---
:1997 Author Organization [place] Address [address] [place] [address] Care Team Providers Name Role Phone No Ref-Primary Primary Care Provider Olga Ibarra DO Unavailable Tray Lucas MD Unavailable Deandre Ramos APRN Unavailable Olga Ibarra DO Unavailable Encounter Details Date Type Department Care Team Description 02/23/2012 Records - [facility] CONVERSION Provider, Frank [...] - Inhaled Oxygen Concentration - - Weight 66.8 kg (147 lb 3 oz) 02/23/2012 3:04 PM PHYSICIAN CHIEF OF PATHOLOGY Height - - Body Mass Index - - documented in this encounter Plan of Treatment Not on filedocumented as of this encounter Visit Diagnoses Not on filedocumented in this encounter Additional Health Concerns Infection Onset Date Last Indicated Resolved Time Rule Out COVID-19 12/17/2019 12/17/2019 12/18/2019 6: 16 PM CDT documented as of this encounter Care Teams Human Resources Recruiter Relationship Specialty Start Date End Date No Ref-Primary, Physician PCP - General 02/23/14 Inga Ibarra DO Assigned OBGYN Provider 01/06/20 06/09/20 [address] [place], [place] [address] Dottie Lucas MD Assigned OBGYN Provider 06/10/20 06/16/20 [address] [place] [address] Elva Ramos APRN CNM Assigned OBGYN Provider 07/01/20 11/10/[address] [place] [address] sInga DO Assigned OBGYN Provider 06/17/20 06/30/20 [address] [place] [address] documented as of this encounter
--- OUTSIDE RECORDS SUMMARY | 2021-10-01 16:53 | XMS_ITS | Encounter Summary ---
:1995 Author Organization [place] Address [address] [place] [address] Care Team Providers Name Role Phone No Ref-Primary Primary Care Provider Olga Ibarra DO Unavailable Tray Lucas MD Unavailable Deandre Ramos APRN Unavailable Olga Ibarra DO Unavailable Encounter Details Date Type Department Care Team Description 04/07/2012 [facility] Provider, Frank aguilera Social [...] - - Weight 66.8 kg (147 lb 5 oz) 04/07/2012 8:55 AM JOB CHANGE CREW MEMBER Height - - Body Mass Index 27.16 04/07/2012 8:55 AM JOB CHANGE CREW MEMBER Body Mass Index Percentile 94.53 % 04/07/2012 8:[address] Growth Chart: [facility] (Girls, 2-20 Years) documented in this encounter Plan of Treatment Not on filedocumented as of this encounter Visit Diagnoses Not on filedocumented in this encounter Additional Health Concerns Infection Onset Date Last Indicated Resolved Time Rule Out COVID-19 12/17/2019 12/17/2019 12/18/2019 6: 16 PM CDT documented as of this encounter Care Teams Power Generation Technician Relationship Specialty Start Date End Date No Ref-Primary, Physician PCP - General 02/23/14 sInga DO Assigned OBGYN Provider 01/06/20 06/09/20 [address] [place] [id number] Dottie Lucas MD Assigned OBGYN Provider 06/10/20 06/16/20 [address] [place] [id number] Elva Ramos APRN CNM Assigned OBGYN Provider 07/01/20 11/10/[address] [address] [place] [id number] sInga DO Assigned OBGYN Provider 06/17/20 06/30/20 [address] [place] [id number] documented as of this encounter
--- OUTSIDE RECORDS SUMMARY | 2021-10-01 16:53 | XMS_ITS | Encounter Summary ---
:1995 Author Organization [place] Address [address] [place] [address] Care Team Providers Name Role Phone No Ref-Primary Primary Care Provider Olga Ibarra DO Unavailable Tray Lucas MD Unavailable Deandre Ramos APRN Unavailable Olga Ibarra DO Unavailable Encounter Details Date Type Department Care Team Description 10/14/2013 Records - [facility] HE CONVERSION Provider, Frank [...] - - Height 157.5 cm (5' 2) 10/14/2013 10:37 AM CDT Body Mass Index - - documented in this encounter Plan of Treatment Not on filedocumented as of this encounter Visit Diagnoses Not on filedocumented in this encounter Additional Health Concerns Infection Onset Date Last Indicated Resolved Time Rule Out COVID-19 12/17/2019 12/17/2019 12/18/2019 6: 16 PM CDT documented as of this encounter Care Teams Catalyst Supervisor Relationship Specialty Start Date End Date No Ref-Primary, Physician PCP - General 02/23/14 Inga Ibarra DO Assigned OBGYN Provider 01/06/20 06/09/20 [address] [place], [place] [address] Dottie Lucas MD Assigned OBGYN Provider 06/10/20 06/16/20 [address] [place] [address] Elva Ramos APRN CNM Assigned OBGYN Provider 07/01/20 11/10/[address] [place] [address] sInga DO Assigned OBGYN Provider 06/17/20 06/30/20 [address] [place] [address] documented as of this encounter
--- OUTSIDE RECORDS SUMMARY | 2021-10-01 16:53 | XMS_ITS | Encounter Summary ---
:1997 Author Organization [place] Address [address] [place] [address] Care Team Providers Name Role Phone No Ref-Primary Primary Care Provider Olga Ibarra DO Unavailable Tray Lucas MD Unavailable Deandre Ramos APRN Unavailable Olga Ibarra DO Unavailable Encounter Details Date Type Department Care Team Description 07/26/2012 Records - [facility] CONVERSION Provider, Frank aguilera Social History Tobacco [...] - Inhaled Oxygen Concentration - - Weight 66.4 kg (146 lb 5 oz) 07/26/2012 3:17 PM CDT Height - - Body Mass Index 26.98 07/26/2012 3:17 PM CDT Body Mass Index Percentile 93.88 % 07/26/2012 3:17 PM C DT Growth Chart: [facility] (Girls, 2-20 Years) documented in this encounter Plan of Treatment Not on filedocumented as of this encounter Visit Diagnoses Not on filedocumented in this encounter Additional Health Concerns Infection Onset Date Last Indicated Resolved Time Rule Out COVID-19 12/17/2019 12/17/2019 12/18/2019 6: 16 PM CDT documented as of this encounter Care Teams Information Services Assistant Relationship Specialty Start Date End Date No Ref-Primary, Physician PCP - General 02/23/14 sInga DO Assigned OBGYN Provider 01/06/20 06/09/20 [address] [place] [id number] Dottie Lucas MD Assigned OBGYN Provider 06/10/20 06/16/20 [address] [place] [id number] Elva Ramos APRN CNM Assigned OBGYN Provider 07/01/20 11/10/[address] [place] 987265 Inga Ibarra DO Assigned OBGYN Provider 06/17/20 06/30/20 [address] [place] [id number] documented as of this encounter
--- OUTSIDE RECORDS SUMMARY | 2021-10-01 16:53 | XMS_ITS | Encounter Summary ---
:1997 Author Organization [place] Address [address] [place] [address] Care Team Providers Name Role Phone No Ref-Primary Primary Care Provider Olga Ibarra DO Unavailable Tray Lucas MD Unavailable Deandre Ramos APRN Unavailable Olga Ibarra DO Unavailable Encounter Details Date Type Department Care Team Description 03/12/2013 Records - [facility] CONVERSION Provider, Frank aguilera Social History [...] - Inhaled Oxygen Concentration - - Weight 63.4 kg (139 lb 12.7 oz) 03/12/2013 10:36 AM LEADERSHIP INTERN Height - - Body Mass Index - - documented in this encounter Plan of Treatment Not on filedocumented as of this encounter Visit Diagnoses Not on filedocumented in this encounter Additional Health Concerns Infection Onset Date Last Indicated Resolved Time Rule Out COVID-19 12/17/2019 12/17/2019 12/18/2019 6: 16 PM CDT documented as of this encounter Care Teams Commercial Ocean Clammer Relationship Specialty Start Date End Date No Ref-Primary, Physician PCP - General 02/23/14 Inga Ibarra DO Assigned OBGYN Provider 01/06/20 06/09/[address] [place] [address] Dottie Lucas MD Assigned OBGYN Provider 06/10/20 06/16/[address] [place] [address] Elva Ramos APRN CNM Assigned OBGYN Provider 07/01/20 11/10/[address] [place] [address] s, Inga Espinoza DO Assigned OBGYN Provider 06/17/20 06/30/[address] [place] [address] documented as of this encounter
--- OUTSIDE RECORDS SUMMARY | 2021-10-01 16:53 | XMS_ITS | Encounter Summary ---
:1995 Author Organization [place] Address [address] [place] [address] Care Team Providers Name Role Phone No Ref-Primary Primary Care Provider Olga Ibarra DO Unavailable Tray Lucas MD Unavailable Deandre Ramos APRN Unavailable Olga Ibarra DO Unavailable Encounter Details Date Type Department Care Team Description 09/13/2013 Records - [facility] CONVERSION Provider, Frank aguilera Social History [...] - - Weight 66.9 kg (147 lb 9 oz) 09/13/2013 2:49 PM CDT Height - - Body Mass Index - - documented in this encounter Plan of Treatment Not on filedocumented as of this encounter Visit Diagnoses Not on filedocumented in this encounter Additional Health Concerns Infection Onset Date Last Indicated Resolved Time Rule Out COVID-19 12/17/2019 12/17/2019 12/18/2019 6: 16 PM CDT documented as of this encounter Care Teams Portable Track Line Marker Relationship Specialty Start Date End Date No Ref-Primary, Physician PCP - General 02/23/14 Inga Ibarra DO Assigned OBGYN Provider 01/06/20 06/09/20 [address] [place], [place] [address] Dottie Lucas MD Assigned OBGYN Provider 06/10/20 06/16/20 [address] [place] [address] Elva Ramos APRN CNM Assigned OBGYN Provider 07/01/20 11/10/[address] [place] [address] s, Inga Espinoza DO Assigned OBGYN Provider 06/17/20 06/30/20 [address] [place] [address] documented as of this encounter
--- OUTSIDE RECORDS SUMMARY | 2021-10-01 16:53 | XMS_ITS | Encounter Summary ---
:1997 Author Organization [place] Address [address] [place] [address] Care Team Providers Name Role Phone No Ref-Primary Primary Care Provider Olga Ibarra DO Unavailable Tray Lucas MD Unavailable Deandre Ramos APRN Unavailable Olga Ibarra DO Unavailable Encounter Details Date Type Department Care Team Description 03/24/2013 Records - [facility] HE CONVERSION Provider, Frank [...] - - Weight 62.1 kg (137 lb) 03/24/2013 9:12 AM FRUIT SORTER Height - - Body Mass Index - - documented in this encounter Plan of Treatment Not on filedocumented as of this encounter Visit Diagnoses Not on filedocumented in this encounter Additional Health Concerns Infection Onset Date Last Indicated Resolved Time Rule Out COVID-19 12/17/2019 12/17/2019 12/18/2019 6: 16 PM CDT documented as of this encounter Care Teams Supervisor Special Education Relationship Specialty Start Date End Date No Ref-Primary, Physician PCP - General 02/23/14 Inga Ibarra DO Assigned OBGYN Provider 01/06/20 06/09/20 [address] [place] [address] Dottie Lucas MD Assigned OBGYN Provider 06/10/20 06/16/20 [address] [place] [address] Elva Ramos APRN CNM Assigned OBGYN Provider 07/01/20 11/10/20 [address] [place] [address] sInga DO Assigned OBGYN Provider 06/17/20 06/30/20 [address] [place] [address] documented as of this encounter
--- OUTSIDE RECORDS SUMMARY | 2021-10-01 16:53 | XMS_ITS | Encounter Summary ---
:1997 Author Organization [place] Address [address] [place] [address] Care Team Providers Name Role Phone No Ref-Primary Primary Care Provider Olga Ibarra DO Unavailable Tray Lucas MD Unavailable Deandre Ramos APRN, CNM Unavailable Olga Ibarra DO Unavailable Encounter Details Date Type Department Care Team Description 08/23/2012 Records - [facility] Provider, Perez pascaul [facility] Emergency Maryann m [address] [place] [address] Social History Tobacco Use Types [...] Priority Date/Time Associated Diagnosis Comme nts XR CHEST 2 VW Routine 08/23/2012 12:00 AM Results for this CDT procedure are i n the results section . documented in this encounter Results XR Chest 2 Views (08/23/2012 12:00 AM CDT) Anatomical Region Laterality Modality Chest Digital Radiography Specimen (Source) Anatomical Location Collection Method / Collectio n Time Received Time / Laterality Volume Narrative 08/23/2012 12:00 AM CDT See Historical Hospital Medical [...] documented as of this encounter Care Teams Compensation Supervisor Relationship Specialty Start Date End Date No Ref-Primary, Physician PCP - General 02/23/14 sInga DO Assigned OBGYN Provider 01/06/20 06/09/[address] [place] [address] Dottie Lucas MD Assigned OBGYN Provider 06/10/20 06/16/[address] [place] [address] Elva Ramos APRN CNM Assigned OBGYN Provider 07/01/20 11/10/[address] [place] [address] sInga DO Assigned OBGYN Provider 06/17/20 06/30/[address] [place], [place] 7[address]275 documented as of this encounter
--- OUTSIDE RECORDS SUMMARY | 2021-10-01 16:53 | XMS_ITS | Encounter Summary ---
:1997 Author Organization [place] Address [address] [place] [address] Care Team Providers Name Role Phone No Ref-Primary Primary Care Provider Olga Ibarra DO Unavailable Tray Lucas MD Unavailable Deandre Ramos APRN Unavailable Olga Ibarra DO Unavailable Encounter Details Date Type Department Care Team Description 08/31/2012 Records - [facility] HE CONVERSION Provider, Frank aguilera [...] - Inhaled Oxygen Concentration - - Weight 63.5 kg (140 lb) 08/31/2012 1:02 PM CDT Height - - Body Mass Index 25.81 08/31/2012 1:02 PM CDT Body Mass Index Percentile 91.47 % 08/31/2012 1:02 PM C DT Growth Chart: [facility] (Girls, 2-20 Years) documented in this encounter Plan of Treatment Not on filedocumented as of this encounter Visit Diagnoses Not on filedocumented in this encounter Additional Health Concerns Infection Onset Date Last Indicated Resolved Time Rule Out COVID-19 12/17/2019 12/17/2019 12/18/2019 6: 16 PM CDT documented as of this encounter Care Teams Stucco Plasterer Relationship Specialty Start Date End Date No Ref-Primary, Physician PCP - General 02/23/14 sInga DO Assigned OBGYN Provider 01/06/20 06/09/[address] [place] [address]84[address] Dottie Lucas MD Assigned OBGYN Provider 06/10/20 06/16/20 [address] [place] [id number] Elva Ramos APRN CNM Assigned OBGYN Provider 07/01/20 11/10/[address] [place] 217185 sInga DO Assigned OBGYN Provider 06/17/20 06/30/[address] [place] [address] documented as of this encounter
--- OUTSIDE RECORDS SUMMARY | 2021-10-01 16:53 | XMS_ITS | Encounter Summary ---
:1997 Author Organization [facility] Address [address] [place] [address] Care Team Providers Name Role Phone No Ref-Primary Primary Care Provider Olga Ibarra DO Unavailable Tray Lucas MD Unavailable Deandre Ramos APRN Unavailable Olga Ibarra DO Unavailable Encounter Details Date Type Department Care Team Description [facility]/13/2012 [facility], Frank aguilera Social [...] - Inhaled Oxygen Concentration - - Weight 62.7 kg (138 lb 4 oz) 12/13/2012 11:46 AM CDT Height - - Body Mass Index 25.29 12/13/2012 11:46 AM CDT Body Mass Index Percentile 89.57 % 12/13/2012 11:46 AM C DT Growth Chart: [facility] (Girls, 2-20 Years) documented in this encounter Plan of Treatment Not on filedocumented as of this encounter Visit Diagnoses Not on filedocumented in this encounter Additional Health Concerns Infection Onset Date Last Indicated Resolved Time Rule Out COVID-19 12/17/2019 12/17/2019 12/18/2019 6: 16 PM CDT documented as of this encounter Care Teams Patient Coordinator Front Desk Relationship Specialty Start Date End Date No Ref-Primary, Physician PCP - General 02/23/14 sInga DO Assigned OBGYN Provider 01/06/20 06/09/20 [address] [place] [id number] Dottie Lucas MD Assigned OBGYN Provider 06/10/20 06/16/20 [address] [place] [id number] Elva Ramos APRN CNM Assigned OBGYN Provider 07/01/20 11/10/[address] [place] [id number] Inga Ibarra DO Assigned OBGYN Provider 06/17/20 06/30/20 [address] [place] [address] documented as of this encounter
--- OUTSIDE RECORDS SUMMARY | 2021-10-01 16:53 | XMS_ITS | Encounter Summary ---
:1995 Author Organization [place] Address [address] [place] [address] Care Team Providers Name Role Phone No Ref-Primary Primary Care Provider Olga Ibarra DO Unavailable Tray Lucas MD Unavailable Deandre Ramos APRN, CNM Unavailable Olga Ibarra DO Unavailable Encounter Details Date Type Department Care Team Description 07/05/2013 Records - [facility] Provider, Perez pascual [facility] [address] [place] [address] Social History Tobacco Use Types [...] Procedure Name Priority Date/Time Associated Comments Diagnosis MR MISCELLANEOUS ORDER Routine 07/05/2013 12:00 R esults for this AM CDT procedure are i n the results section. XR HIP ARTHROGRAM Routine 07/05/2013 12:00 Result s for this RIGHT AM CDT procedure are i n the results section. documented in this encounter Results MR MISCELLANEOUS ORDER (07/05/2013 12:00 AM CDT) Anatomical Region Laterality Modality Other Specimen (Source) Anatomical Location Collection Method / Collectio n Time Received Time / Laterality Volume Narrative 07/05/2013 12:00 AM CDT See Historical Hospital Medical Record f or documentation Procedure Note Provider, Historical - 08/18/2020Formatt ing of this note might be different from the original. See Historical Hospital Medical Record f or documentation Historical Provider IMG MRI ORDERABLES XR Hip Arthrogram Right (07/05/2013 12:00 AM CDT) Anatomical Region Laterality Modality Hip, Abdomen/Pelvis, Right Hip Right Other Specimen (Source) Anatomical Location Collection Method / Collectio n Time Received Time / Laterality Volume Narrative 07/05/2013 12:00 AM CDT See Historical Hospital Medical Record f or documentation Procedure Note Provider, Historical - 08/18/2020Formatt ing [...] documented as of this encounter Care Teams Hydraulic Repairer Relationship Specialty Start Date End Date No Ref-Primary, Physician PCP - General 02/23/14 Masters, Inga Espinoza DO Assigned OBGYN Provider 01/06/20 06/09/20 [address] [place] [address] Dottie Lucas MD Assigned OBGYN Provider 06/10/20 06/16/20 [address] [place] [address] Elva Ramos APRN CNM Assigned OBGYN Provider 07/01/20 11/10/20 [address] [place] [address] Masters, Inga Espinoza, Assigned OBGYN Provider 06/17/20 06/30/20 [address] [place] [address] documented as of this encounter
--- OUTSIDE RECORDS SUMMARY | 2021-10-01 16:53 | XMS_ITS | Encounter Summary ---
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 Height - - Body Mass Index - - documented in this encounter Plan of Treatment Not on filedocumented as of this encounter Visit Diagnoses Not on filedocumented in this encounter Additional Health Concerns Infection Onset Date Last Indicated Resolved Time Rule Out COVID-19 12/17/2019 12/17/2019 12/18/2019 6: 16 PM CDT documented as of this encounter Care Teams Ux Researcher Relationship Specialty Start Date End Date No Ref-Primary, Physician PCP - General 02/23/14 Inga Ibarra DO Assigned OBGYN Provider 01/06/20 06/09/20 [address] [place], [place] [address] Dottie Lucas MD Assigned OBGYN Provider 06/10/20 06/16/20 [address] [place] [address] Elva Ramos APRN CNM Assigned OBGYN Provider 07/01/20 11/10/[address] [place] [address] sInga DO Assigned OBGYN Provider 06/17/20 06/30/20 [address] [place] [address] documented as of this encounter
--- OUTSIDE RECORDS SUMMARY | 2021-10-01 16:53 | XMS_ITS | Encounter Summary ---
:1995 Author Organization [place] Address [address] [place] [address] Care Team Providers Name Role Phone No Ref-Primary Primary Care Provider Olga Ibarra DO Unavailable Tray Lucas MD Unavailable Deandre Ramos APRN Unavailable Olga Ibarra DO Unavailable Encounter Details Date Type Department Care Team Description 06/22/2012 Records - [facility] CONVERSION Provider, Frank aguilera Social History Tobacco [...] Concentration - - Weight 65.8 kg (145 lb 1 oz) 06/22/2012 10:50 AM CDT Height - - Body Mass Index 26.75 06/22/2012 10:50 AM CDT Body Mass Index Percentile 93.64 % 06/22/2012 10:50 AM C DT Growth Chart: [facility] (Girls, 2-20 Years) documented in this encounter Plan of Treatment Not on filedocumented as of this encounter Visit Diagnoses Not on filedocumented in this encounter Additional Health Concerns Infection Onset Date Last Indicated Resolved Time Rule Out COVID-19 12/17/2019 12/17/2019 12/18/2019 6: 16 PM CDT documented as of this encounter Care Teams Spool Fixer Relationship Specialty Start Date End Date No Ref-Primary, Physician PCP - General 02/23/14 sInga DO Assigned OBGYN Provider 01/06/20 06/09/20 [address] [place] [id number] Dottie Lucas MD Assigned OBGYN Provider 06/10/20 06/16/20 [address] [place] [id number] Elva Ramos APRN CNM Assigned OBGYN Provider 07/01/20 11/10/[address] [place] 110385 Inga Ibarra DO Assigned OBGYN Provider 06/17/20 06/30/20 [address] [place] [id number] documented as of this encounter
--- OUTSIDE RECORDS SUMMARY | 2021-10-01 16:53 | XMS_ITS | Encounter Summary ---
:1995 Author Organization [place] Address [address] [place] [address] Care Team Providers Name Role Phone No Ref-Primary Primary Care Provider Olga Ibarra DO Unavailable Tray Lucas MD Unavailable Deandre Ramos APRN Unavailable Olga Ibarra DO Unavailable Encounter Details Date Type Department Care Team Description [facility], Frank aguilera Social History [...] - - Weight 62.1 kg (137 lb) 03/29/2013 4:25 PM ADJUNCT INSTRUCTOR OF WOMEN'S STUDIES Height - - Body Mass Index 25.06 03/29/2013 4:25 PM ADJUNCT INSTRUCTOR OF WOMEN'S STUDIES Body Mass Index Percentile 88.23 % 03/29/2013 4:[address] Growth Chart: [facility] (Girls, 2-20 Years) documented in this encounter Plan of Treatment Not on filedocumented as of this encounter Visit Diagnoses Not on filedocumented in this encounter Additional Health Concerns Infection Onset Date Last Indicated Resolved Time Rule Out COVID-19 12/17/2019 12/17/2019 12/18/2019 6: 16 PM CDT documented as of this encounter Care Teams Director Life Sales Relationship Specialty Start Date End Date No Ref-Primary, Physician PCP - General 02/23/14 sInga DO Assigned OBGYN Provider 01/06/20 06/09/[address] [place] [id number] Dottie Lucas MD Assigned OBGYN Provider 06/10/20 06/16/[address] [place] 548225 Elva Ramos APRN CNM Assigned OBGYN Provider 07/01/20 11/10/[address] [place] [id number] Inga Ibarra DO Assigned OBGYN Provider 06/17/20 06/30/20 [address] [place] [id number] documented as of this encounter
--- OUTSIDE RECORDS SUMMARY | 2021-10-01 16:53 | XMS_ITS | Encounter Summary ---
:1995 Author Organization [place] Address [address] [place] [address] Care Team Providers Name Role Phone No Ref-Primary Primary Care Provider Olga Ibarra DO Unavailable Tray Lucas MD Unavailable Deandre Ramos APRN Unavailable Olga Ibarra DO Unavailable Encounter Details Date Type Department Care Team Description 06/22/2012 Records - [facility] CONVERSION Provider, Frank aguilera Social History [...] - - Height 156.8 cm (5' 1.75) 06/22/2012 10:50 AM CDT Body Mass Index - - documented in this encounter Plan of Treatment Not on filedocumented as of this encounter Visit Diagnoses Not on filedocumented in this encounter Additional Health Concerns Infection Onset Date Last Indicated Resolved Time Rule Out COVID-19 12/17/2019 12/17/2019 12/18/2019 6: 16 PM CDT documented as of this encounter Care Teams Assembler Knife Relationship Specialty Start Date End Date No Ref-Primary, Physician PCP - General 02/23/14 Inga Ibarra DO Assigned OBGYN Provider 01/06/20 06/09/[address] [place] [address] Dottie Lucas MD Assigned OBGYN Provider 06/10/20 06/16/[address] [place] [address] Elva Ramos APRN CNM Assigned OBGYN Provider 07/01/20 11/10/[address] [place] [address] s, Inga Espinoza DO Assigned OBGYN Provider 06/17/20 06/30/[address] [place] [address] documented as of this encounter
--- OUTSIDE RECORDS SUMMARY | 2021-10-01 16:53 | XMS_ITS | Encounter Summary ---
:1995 Author Organization [place] Address [address] [place] [address] Care Team Providers Name Role Phone No Ref-Primary Primary Care Provider Olga Ibarra DO Unavailable Tray Lucas MD Unavailable Deandre Ramos APRN Unavailable Olga Ibarra DO Unavailable Encounter Details Date Type Department Care Team Description 08/20/2012 Records - [facility] CONVERSION Provider, Frank aguilera Social [...] - - Height 156.8 cm (5' 1.75) 08/20/2012 1:51 PM CDT Body Mass Index - - documented in this encounter Plan of Treatment Not on filedocumented as of this encounter Visit Diagnoses Not on filedocumented in this encounter Additional Health Concerns Infection Onset Date Last Indicated Resolved Time Rule Out COVID-19 12/17/2019 12/17/2019 12/18/2019 6: 16 PM CDT documented as of this encounter Care Teams Tufter Hand Relationship Specialty Start Date End Date No Ref-Primary, Physician PCP - General 02/23/14 Inga Ibarra DO Assigned OBGYN Provider 01/06/20 06/09/[address] [place] [address] Dottie Lucas MD Assigned OBGYN Provider 06/10/20 06/16/[address] [place] [address] Elva Ramos APRN CNM Assigned OBGYN Provider 07/01/20 11/10/[address] [place] [address] s, Inga Espinoza DO Assigned OBGYN Provider 06/17/20 06/30/[address] [place] [address] documented as of this encounter
--- OUTSIDE RECORDS SUMMARY | 2021-10-01 16:53 | XMS_ITS | Encounter Summary ---
:1995 Author Organization [place] Address [address] [place] [address] Care Team Providers Name Role Phone No Ref-Primary Primary Care Provider Olga Ibarra DO Unavailable Tray Lucas MD Unavailable Deandre Ramos APRN Unavailable Olga Ibarra DO Unavailable Encounter Details Date Type Department Care Team Description 10/06/2012 Records - [facility] CONVERSION Provider, Frank [...] - - Height 157.5 cm (5' 2) 10/06/2012 3:08 PM CDT Body Mass Index - - documented in this encounter Plan of Treatment Not on filedocumented as of this encounter Visit Diagnoses Not on filedocumented in this encounter Additional Health Concerns Infection Onset Date Last Indicated Resolved Time Rule Out COVID-19 12/17/2019 12/17/2019 12/18/2019 6: 16 PM CDT documented as of this encounter Care Teams Time Stamp Assembler Relationship Specialty Start Date End Date No Ref-Primary, Physician PCP - General 02/23/14 Inga Ibarra DO Assigned OBGYN Provider 01/06/20 06/09/20 [address] [place], [place] [address] Dottie Lucas MD Assigned OBGYN Provider 06/10/20 06/16/20 [address] [place] [address] Elva Ramos APRN CNM Assigned OBGYN Provider 07/01/20 11/10/[address] [place] [address] sInga DO Assigned OBGYN Provider 06/17/20 06/30/20 [address] [place] [address] documented as of this encounter
--- OUTSIDE RECORDS SUMMARY | 2021-10-01 16:53 | XMS_ITS | Encounter Summary ---
:1997 Author Organization [place] Address [address] [place] [address] Care Team Providers Name Role Phone No Ref-Primary Primary Care Provider Olga Ibarra DO Unavailable Tray Lucas MD Unavailable Deandre Ramos APRN Unavailable Olga Ibarra DO Unavailable Encounter Details Date Type Department Care Team Description 12/30/2012 Records - [facility] CONVERSION Provider, Frank aguilera Social [...] - - Weight 62.7 kg (138 lb 2.1 oz) 12/30/2012 4:37 PM CDT Height - - Body Mass Index - - documented in this encounter Plan of Treatment Not on filedocumented as of this encounter Visit Diagnoses Not on filedocumented in this encounter Additional Health Concerns Infection Onset Date Last Indicated Resolved Time Rule Out COVID-19 12/17/2019 12/17/2019 12/18/2019 6: 16 PM CDT documented as of this encounter Care Teams Risk Lead Relationship Specialty Start Date End Date No Ref-Primary, Physician PCP - General 02/23/14 Inga Ibarra DO Assigned OBGYN Provider 01/06/20 06/09/[address] [place] [address] Dottie Lucas MD Assigned OBGYN Provider 06/10/20 06/16/[address] [place] [address] Elva Ramos APRN CNM Assigned OBGYN Provider 07/01/20 11/10/[address] [place] [address] sInga DO Assigned OBGYN Provider 06/17/20 06/30/[address] [place] [address] documented as of this encounter
--- OUTSIDE RECORDS SUMMARY | 2021-10-01 16:54 | XMS_ITS | Encounter Summary ---
:1997 Author Organization [place] Address [address] [place] [address] Care Team Providers Name Role Phone No Ref-Primary Primary Care Provider Olga Ibarra DO Unavailable Tray Lucas MD Unavailable Deandre Ramos APRN Unavailable Olga Ibarra DO Unavailable Encounter Details Date Type Department Care Team Description 10/09/2010 Records - [facility] CONVERSION Provider, Frank aguilera Social History [...] Concentration - - Weight - - Height 156.2 cm (5' 1.5) 10/09/2010 10:26 AM CDT Body Mass Index - - documented in this encounter Plan of Treatment Not on filedocumented as of this encounter Visit Diagnoses Not on filedocumented in this encounter Additional Health Concerns Infection Onset Date Last Indicated Resolved Time Rule Out COVID-19 12/17/2019 12/17/2019 12/18/2019 6: 16 PM CDT documented as of this encounter Care Teams Technical Advisor Relationship Specialty Start Date End Date No Ref-Primary, Physician PCP - General 02/23/14 Inga Ibarra DO Assigned OBGYN Provider 01/06/20 06/09/[address] [place] [address] Dottie Lucas MD Assigned OBGYN Provider 06/10/20 06/16/[address] [place] [address] Elva Ramos APRN CNM Assigned OBGYN Provider 07/01/20 11/10/[address] [place] [address] s, Inga Espinoza DO Assigned OBGYN Provider 06/17/20 06/30/[address] [place] [address] documented as of this encounter
--- OUTSIDE RECORDS SUMMARY | 2021-10-01 16:54 | XMS_ITS | Encounter Summary ---
:1997 Author Organization [place] Address [address] [place] [address] Care Team Providers Name Role Phone No Ref-Primary Primary Care Provider Olga Ibarra DO Unavailable Tray Lucas MD Unavailable Deandre Ramos APRN Unavailable Olga Ibarra DO Unavailable Encounter Details Date Type Department Care Team Description 12/24/2009 Records - [facility] CONVERSION Provider, Frank [...] Concentration - - Weight - - Height 152.4 cm (5') 12/24/2009 9:38 AM CDT Body Mass Index - - documented in this encounter Plan of Treatment Not on filedocumented as of this encounter Visit Diagnoses Not on filedocumented in this encounter Additional Health Concerns Infection Onset Date Last Indicated Resolved Time Rule Out COVID-19 12/17/2019 12/17/2019 12/18/2019 6: 16 PM CDT documented as of this encounter Care Teams Glass Glazier Relationship Specialty Start Date End Date No Ref-Primary, Physician PCP - General 02/23/14 Inga Ibarra DO Assigned OBGYN Provider 01/06/20 06/09/20 [address] [place] [address] Dottie Lucas MD Assigned OBGYN Provider 06/10/20 06/16/[address] [place] [address] Elva Ramos APRN CNM Assigned OBGYN Provider 07/01/20 11/10/[address] [place] [address] Inga Ibarra DO Assigned OBGYN Provider 06/17/20 06/30/20 [address] [place] [address] documented as of this encounter
--- OUTSIDE RECORDS SUMMARY | 2021-10-01 16:54 | XMS_ITS | Encounter Summary ---
:1997 Author Organization [facility] Address [address] [place] [address] Care Team Providers Name Role Phone No Ref-Primary Primary Care Provider Olga Ibarra DO Unavailable Tray Lucas MD Unavailable Deandre Ramos APRN Unavailable Olga Ibarra DO Unavailable Encounter Details Date Type Department Care Team Description 04/10/2011 Records - [facility] CONVERSION Provider, Frank [...] - - Weight 65.3 kg (144 lb) 04/10/2011 11:25 AM [employer]ODU[employer] CHECKER Height - - Body Mass Index - - documented in this encounter Plan of Treatment Not on filedocumented as of this encounter Visit Diagnoses Not on filedocumented in this encounter Additional Health Concerns Infection Onset Date Last Indicated Resolved Time Rule Out COVID-19 12/17/2019 12/17/2019 12/18/2019 6: 16 PM CDT documented as of this encounter Care Teams Store Shopper Relationship Specialty Start Date End Date No Ref-Primary, Physician PCP - General 02/23/14 Inga Ibarra DO Assigned OBGYN Provider 01/06/20 06/09/20 [address] [place] [address] Dottie Lucas MD Assigned OBGYN Provider 06/10/20 06/16/20 [address] [place] [address] Elva Ramos APRN CNM Assigned OBGYN Provider 07/01/20 11/10/20 [address] [place] [address] sInga DO Assigned OBGYN Provider 06/17/20 06/30/20 [address] [place] [address] documented as of this encounter
--- OUTSIDE RECORDS SUMMARY | 2021-10-01 16:54 | XMS_ITS | Encounter Summary ---
:1997 Author Organization [facility] Address [address] [place] [address] Care Team Providers Name Role Phone No Ref-Primary Primary Care Provider Olga Ibarra DO Unavailable Tray Lucas MD Unavailable Deandre Ramos APRN Unavailable Olga Ibarra DO Unavailable Encounter Details Date Type Department Care Team Description [facility], Frank aguilera Social History [...] - Inhaled Oxygen Concentration - - Weight 58.5 kg (129 lb) 12/24/2009 9:38 AM CDT Height - - Body Mass Index 25.19 12/24/2009 9:38 AM CDT Body Mass Index Percentile 94.90 % 12/24/2009 9:38 AM C DT Growth Chart: [facility] [place] (Girls, 2-20 Years) documented in this encounter Plan of Treatment Not on filedocumented as of this encounter Visit Diagnoses Not on filedocumented in this encounter Additional Health Concerns Infection Onset Date Last Indicated Resolved Time Rule Out COVID-19 12/17/2019 12/17/2019 12/18/2019 6: 16 PM CDT documented as of this encounter Care Teams Lead Applier Relationship Specialty Start Date End Date No Ref-Primary, Physician PCP - General 02/23/14 sInga DO Assigned OBGYN Provider 01/06/20 06/09/20 [address] [place] [id number] Dottie Lucas MD Assigned OBGYN Provider 06/10/20 06/16/20 [address] [place] 298405 Elva Ramos APRN CNM Assigned OBGYN Provider 07/01/20 11/10/[address] [place] [id number] sInga DO Assigned OBGYN Provider 06/17/20 06/30/20 [address] [place] [id number] documented as of this encounter
--- OUTSIDE RECORDS SUMMARY | 2021-10-01 16:54 | XMS_ITS | Encounter Summary ---
:1997 Author Organization [place] Address [address] [place] [address] Care Team Providers Name Role Phone No Ref-Primary Primary Care Provider Olga Ibarra DO Unavailable Tray Lucas MD Unavailable Deandre Ramos APRN Unavailable Olga Ibarra DO Unavailable Encounter Details Date Type Department Care Team Description 11/13/2011 [facility] CONVERSION Provider, Frank aguilera Social History Tobacco [...] - - Height 156.8 cm (5' 1.75) 11/13/2011 2:34 PM CDT Body Mass Index - - documented in this encounter Plan of Treatment Not on filedocumented as of this encounter Visit Diagnoses Not on filedocumented in this encounter Additional Health Concerns Infection Onset Date Last Indicated Resolved Time Rule Out COVID-19 12/17/2019 12/17/2019 12/18/2019 6: 16 PM CDT documented as of this encounter Care Teams Manufacturing Automation Engineer Relationship Specialty Start Date End Date No Ref-Primary, Physician PCP - General 02/23/14 Inga Ibarra DO Assigned OBGYN Provider 01/06/20 06/09/[address] [place] [address] Dottie Lucas MD Assigned OBGYN Provider 06/10/20 06/16/[address] [place] [address] Elva Ramos APRN CNM Assigned OBGYN Provider 07/01/20 11/10/[address] [place] [address] s, Inga Espinoza DO Assigned OBGYN Provider 06/17/20 06/30/[address] [place] [address] documented as of this encounter
--- OUTSIDE RECORDS SUMMARY | 2021-10-01 16:54 | XMS_ITS | Encounter Summary ---
:1997 Author Organization [facility] Address [address] [place] [address] Care Team Providers Name Role Phone No Ref-Primary Primary Care Provider Olga Ibarra DO Unavailable Tray Lucas MD Unavailable Deandre Ramos APRN Unavailable Olga Ibarra DO Unavailable Encounter Details Date Type Department Care Team Description [facility] Frank aguilera Social [...] - Inhaled Oxygen Concentration - - Weight 55.8 kg (123 lb) 08/14/2009 11:45 AM CDT Height - - Body Mass Index 24.02 08/14/2009 11:45 AM CDT Body Mass Index Percentile 93.56 % 08/14/2009 11:45 AM C DT Growth Chart: [facility] (Girls, 2-20 Years) documented in this encounter Plan of Treatment Not on filedocumented as of this encounter Visit Diagnoses Not on filedocumented in this encounter Additional Health Concerns Infection Onset Date Last Indicated Resolved Time Rule Out COVID-19 12/17/2019 12/17/2019 12/18/2019 6: 16 PM CDT documented as of this encounter Care Teams Telesales Professional Relationship Specialty Start Date End Date No Ref-Primary, Physician PCP - General 02/23/14 sInga DO Assigned OBGYN Provider 01/06/20 06/09/20 [address] [place] [id number] Dottie Lucas MD Assigned OBGYN Provider 06/10/20 06/16/20 [address] [place] 838655 Elva Ramos APRN CNM Assigned OBGYN Provider 07/01/20 11/10/[address] [place] 159275 sInga DO Assigned OBGYN Provider 06/17/20 06/30/20 [address] [place] [id number] documented as of this encounter
--- OUTSIDE RECORDS SUMMARY | 2021-10-01 16:54 | XMS_ITS | Encounter Summary ---
:1997 Author Organization [facility] Address [address] [place] [address] Care Team Providers Name Role Phone No Ref-Primary Primary Care Provider Olga Ibarra DO Unavailable Tray Lucas MD Unavailable Deandre Ramos APRN Unavailable Olga Ibarra DO Unavailable Encounter Details Date Type Department Care Team Description 12/25/2011 Records - [facility] CONVERSION Provider, [...] - Inhaled Oxygen Concentration - - Weight 68.6 kg (151 lb 3 oz) 12/25/2011 3:12 PM CDT Height - - Body Mass Index - - documented in this encounter Plan of Treatment Not on filedocumented as of this encounter Visit Diagnoses Not on filedocumented in this encounter Additional Health Concerns Infection Onset Date Last Indicated Resolved Time Rule Out COVID-19 12/17/2019 12/17/2019 12/18/2019 6: 16 PM CDT documented as of this encounter Care Teams Wood Type Cutter Relationship Specialty Start Date End Date No Ref-Primary, Physician PCP - General 02/23/14 Inga Ibarra DO Assigned OBGYN Provider 01/06/20 06/09/20 [address] [place], [place] [address] Dottie Lucas MD Assigned OBGYN Provider 06/10/20 06/16/20 [address] [place] [address] Elva Ramos APRN CNM Assigned OBGYN Provider 07/01/20 11/10/[address] [place] [address] s, Inga Espinoza DO Assigned OBGYN Provider 06/17/20 06/30/20 [address] [place] [address] documented as of this encounter
--- OUTSIDE RECORDS SUMMARY | 2021-10-01 16:54 | XMS_ITS | Encounter Summary ---
:1995 Author Organization [facility] Address [address] [place] [address] Care Team Providers Name Role Phone No Ref-Primary Primary Care Provider Olga Ibarra DO Unavailable Tray Lucas MD Unavailable Deandre Ramos APRN Unavailable Olga Ibarra DO Unavailable Encounter Details Date Type Department Care Team Description 10/09/2010 [facility], Frank aguilera Social History [...] Oxygen Concentration - - Weight 61.2 kg (135 lb) 10/09/2010 10:26 AM CDT Height - - Body Mass Index 25.09 10/09/2010 10:26 AM CDT Body Mass Index Percentile 93.39 % 10/09/2010 10:26 AM C DT Growth Chart: [facility]NOTE 3] (Girls, 2-20 Years) documented in this encounter Plan of Treatment Not on filedocumented as of this encounter Visit Diagnoses Not on filedocumented in this encounter Additional Health Concerns Infection Onset Date Last Indicated Resolved Time Rule Out COVID-19 12/17/2019 12/17/2019 12/18/2019 6: 16 PM CDT documented as of this encounter Care Teams Gizzard Puller Relationship Specialty Start Date End Date No Ref-Primary, Physician PCP - General 02/23/14 sInga DO Assigned OBGYN Provider 01/06/20 06/09/20 [address] [place] [id number] Dottie Lucas MD Assigned OBGYN Provider 06/10/20 06/16/20 [address] [place] [address] Elva Ramos APRN CNM Assigned OBGYN Provider 07/01/20 11/10/[address] [place] [id number] sInga DO Assigned OBGYN Provider 06/17/20 06/30/20 [address] [place] [id number] documented as of this encounter
--- OUTSIDE RECORDS SUMMARY | 2021-10-01 16:54 | XMS_ITS | Encounter Summary ---
:1995 Author Organization [place] Address [address] [place] [address] Care Team Providers Name Role Phone No Ref-Primary Primary Care Provider Olga Ibarra DO Unavailable Tray Lucas MD Unavailable Deandre Ramos APRN Unavailable Olga Ibarra DO Unavailable Encounter Details Date Type Department Care Team Description 08/14/2009 Records - [facility] CONVERSION Provider, Frank [...] Weight - - Height 152.4 cm (5') 08/14/2009 11:45 AM CDT Body Mass Index - - documented in this encounter Plan of Treatment Not on filedocumented as of this encounter Visit Diagnoses Not on filedocumented in this encounter Additional Health Concerns Infection Onset Date Last Indicated Resolved Time Rule Out COVID-19 12/17/2019 12/17/2019 12/18/2019 6: 16 PM CDT documented as of this encounter Care Teams Associate Professor Of Library Science Relationship Specialty Start Date End Date No Ref-Primary, Physician PCP - General 02/23/14 Inga Ibarra DO Assigned OBGYN Provider 01/06/20 06/09/20 [address] [place] [address] Dottie Lucas MD Assigned OBGYN Provider 06/10/20 06/16/[address] [place] [address] Elva Ramos APRN CNM Assigned OBGYN Provider 07/01/20 11/10/[address] [place] [address] Inga Ibarra DO Assigned OBGYN Provider 06/17/20 06/30/20 [address] [place] [address] documented as of this encounter
--- OUTSIDE RECORDS SUMMARY | 2021-10-01 16:54 | XMS_ITS | Encounter Summary ---
:1995 Author Organization [facility] Address [address] [place] [id number] Care Team Providers Name Role Phone No Ref-Primary Primary Care Provider Olga Ibarra DO Unavailable Tray Lucas MD Unavailable Deandre Ramos APRN Unavailable Olga Ibarra DO Unavailable Encounter Details Date Type Department Care Team Description 06/07/2009 Records - [facility] CONVERSION Provider, Frank [...] - Inhaled Oxygen Concentration - - Weight 56.2 kg (124 lb) 06/07/2009 2:04 PM CDT Height - - Body Mass Index - - documented in this encounter Plan of Treatment Not on filedocumented as of this encounter Visit Diagnoses Not on filedocumented in this encounter Additional Health Concerns Infection Onset Date Last Indicated Resolved Time Rule Out COVID-19 12/17/2019 12/17/2019 12/18/2019 6: 16 PM CDT documented as of this encounter Care Teams V Belt Inspector Relationship Specialty Start Date End Date No Ref-Primary, Physician PCP - General 02/23/14 Inga Ibarra DO Assigned OBGYN Provider 01/06/20 06/09/20 [address] [place] [address] Dottie Lucas MD Assigned OBGYN Provider 06/10/20 06/16/[address] [place] [address] Elva Ramos APRN CNM Assigned OBGYN Provider 07/01/20 11/10/[address] [place] [address] Inga Ibarra DO Assigned OBGYN Provider 06/17/20 06/30/20 [address] [place] [address] documented as of this encounter
--- OUTSIDE RECORDS SUMMARY | 2021-10-01 16:54 | XMS_ITS | Encounter Summary ---
:1995 Author Organization [facility] Address [address] [place] [address] Care Team Providers Name Role Phone No Ref-Primary Primary Care Provider Olga Ibarra DO Unavailable Tray Lucas MD Unavailable Deandre Ramos APRN Unavailable Olga Ibarra DO Unavailable Encounter Details Date Type Department Care Team Description 11/13/2011 [facility] - [facility] CONVERSION Provider, Frank aguilera Social [...] - Inhaled Oxygen Concentration - - Weight 68.5 kg (151 lb) 11/13/2011 2:34 PM CDT Height - - Body Mass Index 27.84 11/13/2011 2:34 PM CDT Body Mass Index Percentile 95.79 % 11/13/2011 2:34 PM C DT Growth Chart: [facility] (Girls, 2-20 Years) documented in this encounter Plan of Treatment Not on filedocumented as of this encounter Visit Diagnoses Not on filedocumented in this encounter Additional Health Concerns Infection Onset Date Last Indicated Resolved Time Rule Out COVID-19 12/17/2019 12/17/2019 12/18/2019 6: 16 PM CDT documented as of this encounter Care Teams Metal Bench Patternmaker Relationship Specialty Start Date End Date No Ref-Primary, Physician PCP - General 02/23/14 sInga DO Assigned OBGYN Provider 01/06/20 06/09/[address] [place] [id number] Dottie Lucas MD Assigned OBGYN Provider 06/10/20 06/16/20 [address] [place] [id number] Elva Ramos APRN CNM Assigned OBGYN Provider 07/01/20 11/10/[address] [place] [id number] sInga DO Assigned OBGYN Provider 06/17/20 06/30/[address] [place] [id number] documented as of this encounter
--- OUTSIDE RECORDS SUMMARY | 2021-10-01 16:54 | XMS_ITS | Encounter Summary ---
:1995 Author Organization [facility] Address [address] [place] [id number] Care Team Providers Name Role Phone No Ref-Primary Primary Care Provider Olga Ibarra DO Unavailable Tray Lucas MD Unavailable Deandre Ramos APRN Unavailable Olga Ibarra DO Unavailable Encounter Details Date Type Department Care Team Description 06/27/2009 Records - [facility] CONVERSION Provider, Frank [...] - Inhaled Oxygen Concentration - - Weight 56.7 kg (125 lb) 06/27/2009 3:40 PM CDT Height - - Body Mass Index - - documented in this encounter Plan of Treatment Not on filedocumented as of this encounter Visit Diagnoses Not on filedocumented in this encounter Additional Health Concerns Infection Onset Date Last Indicated Resolved Time Rule Out COVID-19 12/17/2019 12/17/2019 12/18/2019 6: 16 PM CDT documented as of this encounter Care Teams Surgical Assist Relationship Specialty Start Date End Date No Ref-Primary, Physician PCP - General 02/23/14 Inga Ibarra DO Assigned OBGYN Provider 01/06/20 06/09/20 [address] [place] [address] Dottie Lucas MD Assigned OBGYN Provider 06/10/20 06/16/[address] [place] [address] Elva Ramos APRN CNM Assigned OBGYN Provider 07/01/20 11/10/[address] [place] [address] Inga Ibarra DO Assigned OBGYN Provider 06/17/20 06/30/20 [address] [place] [address] documented as of this encounter
--- OUTSIDE RECORDS SUMMARY | 2021-10-01 16:54 | XMS_ITS | Encounter Summary ---
:1995 Author Organization [facility] Address [address] [place] [address] Care Team Providers Name Role Phone No Ref-Primary Primary Care Provider Olga Ibarra DO Unavailable Tray Lucas MD Unavailable Deandre Ramos APRN Unavailable Olga Ibarra DO Unavailable Encounter Details Date Type Department Care Team Description 12/02/2011 Records - [facility] CONVERSION Provider, Frank aguilera Social History [...] - Inhaled Oxygen Concentration - - Weight 69.6 kg (153 lb 6.1 oz) 12/02/2011 1:53 PM CDT Height - - Body Mass Index - - documented in this encounter Plan of Treatment Not on filedocumented as of this encounter Visit Diagnoses Not on filedocumented in this encounter Additional Health Concerns Infection Onset Date Last Indicated Resolved Time Rule Out COVID-19 12/17/2019 12/17/2019 12/18/2019 6: 16 PM CDT documented as of this encounter Care Teams Web Production Artist Relationship Specialty Start Date End Date No Ref-Primary, Physician PCP - General 02/23/14 Inga Ibarra DO Assigned OBGYN Provider 01/06/20 06/09/[address] [place] [address] Dottie Lucas MD Assigned OBGYN Provider 06/10/20 06/16/[address] [place] [address] Elva Ramos APRN CNM Assigned OBGYN Provider 07/01/20 11/10/[address] [place] [address] sInga DO Assigned OBGYN Provider 06/17/20 06/30/[address] [place] [address] documented as of this encounter
--- OUTSIDE RECORDS SUMMARY | 2021-10-01 16:54 | XMS_ITS | Encounter Summary ---
:1995 Author Organization [facility] Address [address] [place] [address] Care Team Providers Name Role Phone No Ref-Primary Primary Care Provider Olga Ibarra DO Unavailable Tray Lucas MD Unavailable Deandre Ramos APRN Unavailable Olga Ibarra DO Unavailable Encounter Details Date Type Department Care Team Description 02/02/2012 Records - [facility] CONVERSION [...] - - Weight 67.2 kg (148 lb 3.1 oz) 02/02/2012 4:28 PM CASTING COORDINATOR Height - - Body Mass Index - - documented in this encounter Plan of Treatment Not on filedocumented as of this encounter Visit Diagnoses Not on filedocumented in this encounter Additional Health Concerns Infection Onset Date Last Indicated Resolved Time Rule Out COVID-19 12/17/2019 12/17/2019 12/18/2019 6: 16 PM CDT documented as of this encounter Care Teams [employer] Relationship Specialty Start Date End Date No Ref-Primary, Physician PCP - General 02/23/14 Inga Ibarra DO Assigned OBGYN Provider 01/06/20 06/09/[address] [place] [address] Dottie Lucas MD Assigned OBGYN Provider 06/10/20 06/16/[address] [place] [address] Elva Ramos APRN CNM Assigned OBGYN Provider 07/01/20 11/10/[address] [place] [address] s, Inga Espinoza DO Assigned OBGYN Provider 06/17/20 06/30/[address] [place] [address] documented as of this encounter
== END 2021-09-25 11:41 | disposition home or self-care (01) | DRG 807 ==
LOC: OB OUT 20:52 → OB 20:52
PROVIDERS: Admitting Provider Obstetrics & Gynecology; Visit Provider Obstetrics & Gynecology
DX: O99.344 Other mental disorders complicating childbirth (principal); Z37.0 Single live birth; O66.0 Obstructed labor due to shoulder dystocia; O70.0 First degree perineal laceration during delivery; F32.A Depression, unspecified; F41.9 Anxiety disorder, unspecified; Z62.810 Personal history of physical and sexual abuse in childhood; Z86.16 Personal history of COVID-19; Z3A.38 38 weeks gestation of pregnancy
CPT/HCPCS: 36415; 85018; 87635; 88307; A9270; J2001; J2590

== ENCOUNTER 2022-05-27 15:30 | Emergency (ER) | payer OTHER, SELFPAY ==
[2022-05-27 15:42] VITALS: BP 119/76; PULSE 65; RESP 18; TEMP 36.4; O2SAT 98; BMI 32.2
--- NOTE | 2022-05-27 16:06 | CRLHL7_ITS ---
For Patients: As a result of the Century Cures Act, medical imaging exams and procedure reports are released immediately into your electronic medical record. You may view this report before your referring provider. If you have questions, please contact your health care provider. INDICATION: Miscarriage with continued bleeding, evaluate for retained products of conception. TECHNIQUE: Ultrasound pelvis transabdominal and transvaginal for better assessment or to better visualize the endometrium. Real-time sonographic images with spectral and color Doppler imaging of the ovaries were obtained. COMPARISON: None. FINDINGS: Uterus: 8.3 x 5.7 x 6.2 cm. Normal echotexture of the myometrium. No masses. Endometrium: Transvaginal imaging was performed to better evaluate the endometrium. Endometrial thickness measures 7 mm. No sign of endometrial mass or fluid. Right ovary 3.0 x 1.6 x 1.9 centimeter. Left ovary 2.3 x 2.0 x 1.7 centimeters. No ovarian or adnexal masses. Normal arterial and venous blood flow is demonstrated in both ovaries. Cul-de-sac: No significant free fluid. IMPRESSION: No intrauterine gestational sac or retained products of conception. Recommend correlation with beta HCG, and potential trending of beta HCG and short-term ultrasound if medically necessary. Normal ovaries for age. Dictated by Cody Oh MD @ 05/27/2022 6:00:26 PM (Electronically Signed)
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
[2022-05-27 17:47] VITALS: BP 114/74; PULSE 68; RESP 18; TEMP 36.5; O2SAT 98
--- NOTE | 2022-05-27 17:58 | ED.NURSE ---
dr hyatt aware that she does not have an IV at present. will place if needed. she is wearing the 3rd pad of the day.
[2022-05-27 18:03] LABS: Basophils Absolute Auto 0.02 K/uL (0.00-0.30); Basophils Percent Auto 0.3 % (0.0-3.0); Eosinophils Absolute Auto 0.19 K/uL (0.00-0.50); Eosinophils Percent Auto 2.5 % (0.0-7.0); Hematocrit 37.8 % (33.0-51.0); Hemoglobin* 12.4 gm/dL (12.0-16.0); Immature Granulocytes Abs Auto 0.03 K/uL (0.00-0.30); Immature Granulocytes Pct Auto 0.4 %; Lymphocytes Absolute Auto 2.68 K/uL (0.90-2.90); Lymphocytes Percent Auto 35.5 % (20-44); Mean Corpuscular HGB Conc 33 gm/dL (32-36); Mean Corpuscular Hemoglobin 28 pg (26-34); Mean Corpuscular Volume 85 fL (80-100); Monocytes Percent Auto 6.8 % (0.0-11.0); Neutrophils Absolute Auto 4.12 K/uL (1.7-7.0); Neutrophils Percent Auto 54.5 % (42.0-72.0); Platelet Count* 224 K/uL (140-440); RDW Coefficient of Variation % 13.1 % (11.5-15.5); Red Blood Count 4.47 m/uL (4.00-5.20); White Blood Count* 7.55 K/uL (4.50-11.00)
[2022-05-27 18:11] LABS: Slide Review Reflex No
[2022-05-27 18:26] LABS: HCG Quantitative* 254.25 mIU/mL
== END 2022-05-27 18:33 | disposition home or self-care (01) ==
PROVIDERS: Emergency Provider Family Medicine; PCP Family Medicine
DX: O03.9 Complete or unspecified spontaneous abortion without complication (principal)
CPT/HCPCS: 36415; 76830; 84702; 85025; 86850; 86900; 86901; 99283; 99284

== ENCOUNTER 2022-08-30 04:38 | Emergency (ER) | payer OTHER, SELFPAY ==
[2022-08-30] MEDS: ONDANSETRON 2 MG/ML inj 4 MG IVP (04:45)
[2022-08-30] MEDS: 0.9 % SODIUM CHLORIDE 1000 ml 1,000 ML IV (04:45)
--- NOTE | 2022-08-30 04:49 | CRLHL7_ITS ---
For Patients: As a result of the Century Cures Act, medical imaging exams and procedure reports are released immediately into your electronic medical record. You may view this report before your referring provider. If you have questions, please contact your health care provider. INDICATION: Increasing abdominal pain with diarrhea. TECHNIQUE: CT abdomen and pelvis acquired with 86 cc Isovue 370 IV contrast. COMPARISON: None. FINDINGS: Lower chest: Unremarkable. Liver: Unremarkable. Normal in size and attenuation. No suspicious masses. Gallbladder and bile ducts: Unremarkable. No stones or inflammation. No biliary dilatation. Pancreas: Unremarkable. No mass or inflammation. Spleen: Unremarkable. Normal in size. No masses. Adrenal glands: Unremarkable. No nodules. Kidneys: Unremarkable. No suspicious masses, stones, or hydronephrosis. GI tract: There is moderate fluid retention throughout the small bowel and colon with multiple air-fluid levels. No sha obstructive changes. No mass or focal inflammation. Normal appendix. Vasculature: Abdominal aorta is normal in caliber. Mesenteric arteries are patent. Lymph nodes: No lymphadenopathy. Peritoneum/Abdominal Wall: Unremarkable. No sign of mass or infiltration. No free air or significant free fluid. Pelvis: Unremarkable. Bones: Unremarkable for age. IMPRESSION: A generalized nonspecific enteritis is present. Appendix and remainder of the exam are unremarkable. Please note that all CT scans at this facility use dose modulation, iterative reconstruction, and/or weight-based dosing when appropriate to reduce radiation dose to as low as reasonably achievable. Dictated by Kyle Millan MD @ 08/30/2022 6:10:02 AM (Electronically Signed)
[2022-08-30 04:56] VITALS: BP 135/79; PULSE 83; RESP 18; TEMP 36.8; O2SAT 99; BMI 31.2
[2022-08-30 05:00] VITALS: O2SAT 98
[2022-08-30 05:03] LABS: Basophils Absolute Auto 0.02 K/uL (0.00-0.30); Basophils Percent Auto 0.2 % (0.0-3.0); Eosinophils Absolute Auto 0.16 K/uL (0.00-0.50); Eosinophils Percent Auto 1.8 % (0.0-7.0); Hematocrit 41.2 % (33.0-51.0); Hemoglobin* 13.4 gm/dL (12.0-16.0); Immature Granulocytes Abs Auto 0.02 K/uL (0.00-0.30); Immature Granulocytes Pct Auto 0.2 %; Lymphocytes Percent Auto 16.2 % (20-44); Mean Corpuscular HGB Conc 33 gm/dL (32-36); Mean Corpuscular Hemoglobin 28 pg (26-34); Mean Corpuscular Volume 85 fL (80-100); Monocytes Percent Auto 10.3 % (0.0-11.0); Neutrophils Absolute Auto 6.16 K/uL (1.7-7.0); Neutrophils Percent Auto 71.3 % (42.0-72.0); Platelet Count* 226 K/uL (140-440); RDW Coefficient of Variation % 13.1 % (11.5-15.5); Red Blood Count 4.85 m/uL (4.00-5.20); White Blood Count* 8.65 K/uL (4.50-11.00)
[2022-08-30 05:04] LABS: Chloride* 104 mmol/L (96-114); Potassium* 3.7 mmol/L (3.6-5.1); Sodium* 134 mmol/L (135-149)
[2022-08-30 05:05] LABS: Slide Review Reflex No
[2022-08-30 05:07] LABS: Blood Urea Nitrogen* 17 mg/dL (5-24); Carbon Dioxide* 21 mmol/L (20-32); Creatinine* 0.7 mg/dL (0.5-1.5); Est. Creatinine Clearance* 102.51; Estimated Glomerular Filt Rate 124 ml/min
[2022-08-30 05:08] LABS: Calcium* 8.9 mg/dL (8.4-10.6); Glucose* 108 mg/dL (60-115)
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
[2022-08-30 05:24] LABS: HCG Qualitative Serum* Negative (Negative)
[2022-08-30 05:50] VITALS: BP 105/78; PULSE 79; RESP 18; TEMP 36.8; O2SAT 99
[2022-08-30] MEDS: LORazepam 2 MG/ML inj 0.5 MG IVP (06:00)
[2022-08-30 06:22] VITALS: BP 105/78; PULSE 79; RESP 18; TEMP 36.8
== END 2022-08-30 06:29 | disposition home or self-care (01) ==
PROVIDERS: Emergency Provider Internal Medicine; PCP Family Medicine
DX: K52.9 Noninfective gastroenteritis and colitis, unspecified (principal)
CPT/HCPCS: 36415; 74177; 80048; 84703; 85025; 94761; 96374; 96375; 99283; 99284; J2060; J2405; J7030; Q9967

== ENCOUNTER 2023-02-13 10:50 | Outpatient (CLI) | payer OTHER, SELFPAY | END 2023-02-13 10:51 | disposition home or self-care (01) | LOC: NFLDREF 02-16 07:35 | PROVIDERS: PCP Family Medicine; Referring Provider Family Medicine; Visit Provider Family Medicine | DX: Z13.220 Encounter for screening for lipoid disorders (principal); Z83.3 Family history of diabetes mellitus; Z13.1 Encounter for screening for diabetes mellitus | CPT/HCPCS: 80061; 82947 ==

== ENCOUNTER 2023-09-16 20:38 | Emergency (ER) | payer OTHER, SELFPAY ==
[2023-09-16 20:46] VITALS: BP 128/78; PULSE 64; RESP 18; TEMP 36.7; O2SAT 99; BMI 30.5
--- NOTE | 2023-09-16 20:58 | CRLHL7_ITS ---
For Patients: As a result of the Century Cures Act, medical imaging exams and procedure reports are released immediately into your electronic medical record. You may view this report before your referring provider. If you have questions, please contact your health care provider. INDICATION: Abdominal pain. TECHNIQUE: CT abdomen and pelvis acquired with 82 cc of Isovue 370 IV contrast. COMPARISON: None. FINDINGS: Lower chest: Unremarkable. Liver: Unremarkable. Normal in size and attenuation. No suspicious masses. Gallbladder and bile ducts: Unremarkable. No stones or inflammation. No biliary dilatation. Pancreas: Unremarkable. No mass or inflammation. Spleen: Unremarkable. Normal in size. No masses. Adrenal glands: Unremarkable. No nodules. Kidneys: Unremarkable. No suspicious masses, stones, or hydronephrosis. GI tract: The distal colon is nondistended. Mild mural thickening of the transverse, descending, and sigmoid colon, and rectum. No bowel obstruction. Normal appendix. Vasculature: Abdominal aorta is normal in caliber. Mesenteric arteries are patent. Lymph nodes: No lymphadenopathy. Peritoneum/Abdominal Wall: Unremarkable. No free air or significant free fluid. Pelvis: Crenulated follicle versus cyst within the left ovary. Unremarkable uterus. Bones: Unremarkable for age. IMPRESSION: 1. Mild mural thickening of the distal colon and rectum. Though this portion of the colon is nondistended, findings could represent mild colitis, such as on the basis of an infectious or inflammatory process, to include inflammatory bowel disease. 2. No other acute findings within the abdomen and pelvis. Please note that all CT scans at this facility use dose modulation, iterative reconstruction, and/or weight-based dosing when appropriate to reduce radiation dose to as low as reasonably achievable. Dictated by Cornell Ford MD @ 09/16/2023 10:54:13 PM (Electronically Signed)
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
[2023-09-16] MEDS: 0.9 % SODIUM CHLORIDE 1000 ml 1,000 ML 6000 ML IV (21:02)
[2023-09-16 21:13] LABS: Basophils Absolute Auto 0.04 K/uL (0.00-0.30); Basophils Percent Auto 0.4 % (0.0-3.0); Eosinophils Absolute Auto 0.34 K/uL (0.00-0.50); Eosinophils Percent Auto 3.4 % (0.0-7.0); Hematocrit 39.1 % (33.0-51.0); Hemoglobin* 12.7 gm/dL (12.0-16.0); Immature Granulocytes Abs Auto 0.02 K/uL (0.00-0.30); Immature Granulocytes Pct Auto 0.2 %; Lymphocytes Absolute Auto 2.64 K/uL (0.90-2.90); Lymphocytes Percent Auto 26.6 % (20-44); Mean Corpuscular HGB Conc 33 gm/dL (32-36); Mean Corpuscular Hemoglobin 28 pg (26-34); Mean Corpuscular Volume 86 fL (80-100); Monocytes Percent Auto 8.2 % (0.0-11.0); Neutrophils Absolute Auto 6.07 K/uL (1.7-7.0); Neutrophils Percent Auto 61.2 % (42.0-72.0); Platelet Count* 246 K/uL (140-440); Red Blood Count 4.55 m/uL (4.00-5.20); White Blood Count* 9.92 K/uL (4.50-11.00)
[2023-09-16 21:27] LABS: Albumin* 4.9 g/dL (3.3-5.0); Chloride* 106 mmol/L (96-114); Sodium* 141 mmol/L (135-149)
--- OUTSIDE RECORDS SUMMARY | 2023-09-16 21:27 | XMS_ITS | Encounter Summary ---
Author Organization [facility] Address [address] [place] [address]. [place] [address] Care Team Providers Care Museum Host/Hostess Name Role Phone No Ref-Primary, Physician Primary Care Provider Elva Ramos APRN CN Unavailable [phone] Nicolasa Sapp MD Unavailable [phone] Encounter Details Date Type Department Care Team (Late st Contact Info) Description 10/01/2020 [facility] Medical Advice [address] [address] Nicole Garcia, GREENHOUSE SUPERINTENDENT Social History Tobacco Use Types Packs/Day Years Used Date Smoking Tobacco: Never Smokeless Tobacco: Never Alcohol Use Standard Drinks/Week Comments No 0 (1 standard drink = 0.6 oz pur e alcohol) PHQ-2 Answer Date Recorded PHQ-2 Score 0 03/03/2019 Bunker Depression Scale Answer Date Recorded Bunker Depression Score 8 12/17/2018 Last EPDS Self Harm Result Not on file 12/17 Sex and Gender Information Value Date Recorded Sex Assigned at Female 10/01/2020 10:47 AM CDT Gender Identity Female 10/01/2020 10:47 AM CDT Sexual Orientation Something else 10/01/2020 10 :47 AM CDT documented as of this encounter Plan of Treatment Not on file documented as of this encounter Visit Diagnoses Not on filedocumented in this encounter Additional Health Concerns Assessment Noted Time PHQ-9 Depression Total Score: 11 01/27/ 019 9:38 AM 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
--- OUTSIDE RECORDS SUMMARY | 2023-09-16 21:27 | XMS_ITS | Encounter Summary ---
Author Organization [facility] Address [address] [place] [address]. [place] [address] Care Team Providers Care Family Therapist Name Role Phone No Ref-Primary, Physician Primary Care Provider Elva Ramos APRN Unavailable [phone] Nicolasa Sapp MD Unavailable [phone] Encounter Details Date Type Department Care Team (Late st Contact Info) Description 11/05/2020 [facility] [place] [address] [place] [address] Nicolasa Sapp MD [address], [address] [place] [address] Social History Tobacco Use Types Packs/Day Years Used Date Smoking Tobacco: Never Smokeless Tobacco: Never Alcohol Use Standard Drinks/Week Comments No 0 (1 standard drink = 0.6 oz pur e alcohol) PHQ-2 Answer Date Recorded PHQ-2 Score 1 10/16/2020 Imperial Depression Scale Answer Date Recorded Imperial Depression Score 8 12/17/2018 Last EPDS Self Harm Result Not on file 12/17 Education Answer Date Recorded What is the highest level of school you have completed or the highest degree you have received? Some college, no degree 10/16/2020 Sex and Gender Information Value Date Recorded Sex Assigned at Female 10/01/2020 10:47 AM CDT Gender Identity Female 10/01/2020 10:47 AM CDT Sexual Orientation Something else 10/01/2020 10 :47 AM CDT COVID-19 Exposure Response Date Recorded In the last month, have you been in contact with someone who was confirmed or suspected to have Coronavirus / COVID-19? No / Unsure 11/02/2020 8:59 AM CDT documented as of this encounter Progress Notes * Nicolasa Sapp MD - 11/05/2020 2:28 PM [...] where she was placed in the dorsal lithotomyposition. Sedation was administered and the patient was prepped and draped in the usual sterile fashion. A speculum was inserted into the vagina and the cervix visualized. A single-toothed tenaculum was placed at 12 o'clock on the cervix. The cervix was dilated using Hegar dilators up to 8 mm. An 8mm curved suction curet was inserted through the cervix to the uterine fundus and suction applied to 50 PSI. The curet was rotated in the uterine cavity with return of tissue. This process was repeated 5 times. A sharp curet was used on all aspects of the uterine cavity with minimal return of tissue and a gritty texture throughout. The suction was repeated x2 with no return of tissue or blood. The suction contents were sent to pathology for examination. The tenaculum was removed from the cervixand good hemostasis noted with silver nitrate. Doxycycline, toradol, and IM methergine 0.2 were given in the OR. The speculum was removed from the vagina. The patient tolerated the procedure well andwas taken to the recovery room in stable condition. 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
--- OUTSIDE RECORDS SUMMARY | 2023-09-16 21:27 | XMS_ITS | Encounter Summary ---
Author Organization [facility] Address [address] [place] [address]. [place] [address] Care Team Providers Care Collar Separator Name Role Phone No Ref-Primary, Physician Primary Care Provider Elva Ramos APRN Unavailable [phone] Nicolasa Sapp MD Unavailable [phone] Encounter Details Date Type Department Care Team (Late st Contact Info) Description 10/16/2020 MyC Medical Advice [facility] [address] [facility] [address] [place] [address] Nancy Howell, RN Social History Tobacco Use Types Packs/Day Years Used Date Smoking Tobacco: Never Smokeless Tobacco: Never Alcohol Use Standard Drinks/Week Comments No 0 (1 standard drink = 0.6 oz pur e alcohol) PHQ-2 Answer Date Recorded PHQ-2 Score 1 10/16/2020 [place] Depression Scale Answer Date Recorded [place] Depression Score 8 12/17/2018 Last EPDS Self Harm Result Not on file 12/17 Education Answer Date Recorded What is the highest level of school you have completed or the highest degree you have received? Some college, no degree 10/16/2020 Comments Yes Sex and Gender Information Value Date Recorded Sex Assigned at Female 10/01/2020 10:47 AM CDT Gender Identity Female 10/01/2020 10:47 AM CDT Sexual Orientation Something else 10/01/2020 10 :47 AM CDT COVID-19 Exposure Response Date Recorded In the last month, have you been in contact with someone who was confirmed or suspected to have Coronavirus / COVID-19? 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
--- OUTSIDE RECORDS SUMMARY | 2023-09-16 21:27 | XMS_ITS | Encounter Summary ---
Author Organization [facility] Address [address] [place] [address]. [place] [address] Care Team Providers Care Bead Wire Taper Name Role Phone No Ref-Primary, Physician Primary Care Provider sInga DO Unavailable [phone] Dottie Lucas MD Unavailable + Elva Ramos APRN Unavailable [phone] Inga Ibarra DO Unavailable [phone] Nicolasa Sapp MD Unavailable [phone] Encounter Details Date Type Department Care Team (Late st Contact Info) Description 06/06/2015 Records - [facility] CONVERSION Scan, Non-Provider Social History Tobacco Use Types Packs/Day Years Used Date Smoking Tobacco: Never Alcohol Use Standard Drinks/Week Comments No 0 (1 standard drink = 0.6 oz pur e alcohol) Sex and Gender Information Value Date Recorded [...] Time Rule Out COVID-19 12/17/2019 12/17/2019 12/18/2019 6:16 PM CDT documented as of this encounter Care Teams Bead Wire Taper Relationship Specialty Start Date End Date No Ref-Primary, Physician PCP - General 02/23/14 Inga Ibarra DO [address] [place], [place] [address] Assigned OBGYN Provider 01/06/20 Dottie Lucas MD [address] [place], [place] [address] Assigned OBGYN Provider 06/10/20 1 Elva Ramos APRN [facility] [address] [place] [address] Assigned OBGYN Provider 07/01/20 Inga Ibarra DO [address] [place] [address] Assigned OBGYN Provider 06/17/20 Nicolasa Sapp MD [address], [address] [place] [address] Assigned OBGYN Provider 11/11/20 documented as of this encounter
--- OUTSIDE RECORDS SUMMARY | 2023-09-16 21:27 | XMS_ITS | Clinical Summary ---
Author Organization [facility] Address [address] [place] [address] Care Team Providers Care Fold Skiver Name Role Phone Unavailable Primary Care Provider Unavailabl e Source Comments Patient records contain information from all sites at [facility]. For routine questions regarding patient records, call [phone] during business hours, M-F 8:00 AM - 5:00 PM Central Time. Record requests for emergency care only can be directed to [phone] at any time.[facility] Allergies Active Allergy Reactions Criticality Noted Date Comments Peanut Other (see comments) 08/30/2022 Pistachio Nut Other (see comments) 08/30/2022 Sodium Sunflowerseedamphoacetate Other (see comments) 08/30/2022 Medications No known medications Active Problems No known active problems Social History Tobacco Use Types Packs/Day Years Used Date Smoking Tobacco: Never Smokeless Tobacco: Never Tobacco Cessation:Counseling Given: Not Answered Nutrition Answer Date Recorded Nutrition: EVOO Fat Source Unknown 01/17 Nutrition: Servings of Fruits/Vegetables per Day Not on file 01/17/2023 Dental Answer Date Recorded Dental: Regular Dentist Unknown 01/18/20 Sex and Gender Information Value Date Recorded Sex Assigned at Not on file Gender Identity Not on file Sexual Orientation Not on file Last Filed Vital Signs Vital Sign Reading Time Taken Comments Blood Pressure 122/86 03/07/2023 10:33 AM POKER MANAGER Pulse 76 03/07/2023 10:33 AM POKER MANAGER Temperature 36.4 ??C (97.5 ??F) 03/07/2023 10:[address] Respiratory Rate - - Oxygen Saturation 98% 03/07/2023 10:33 AM POKER MANAGER Inhaled Oxygen Concentration - - Weight 78.9 kg (174 lb) 01/17/2023 9:39 AM CDT Height - - Body Mass Index - - Plan of Treatment Health Maintenance Due Date Last Done Comments Cervical Cancer Screening 1997 HIV Screening 1997 Hepatitis C Screening 1997 COVID-19 Vaccine (2022- season) 2022 Depression Screening (Annual PHQ-2) 03/16/2023 Influenza Vaccine (#1) 2023 , 12/06/2018, 05/06/2018, Additional history exists DTaP,Tdap,and Td Vaccines (9 - Td or Tdap) 07/27/2031 07/26/2021, 10/11/2018, 10/09/2010, Additional history exists Hepatitis B Vaccines Completed 06/01/1998, 02/20/1998, 1997 HPV Vaccines Completed 06/08/2012, 05/15, 01/20/2012, Additional history exists Pneumococcal vaccine (0-64 years) Aged Out No longer eligible based on patient's age to complete this topic
--- OUTSIDE RECORDS SUMMARY | 2023-09-16 21:27 | XMS_ITS | Referral Summary ---
Author Organization [facility] Address [address] [place] [address]. [place] [address] Care Team Providers Care Gear Hobber Name Role Phone No Ref-Primary, Physician Primary Care Provider Allergies Active Allergy Reactions Criticality Noted Date Comments Cat Hair Extract 10/06/2012 Cockroach 10/06/2012 Dust Mite Extract 10/06/2012 Nuts Nausea and Vomiting,Shortness Of Breath High 10/23/2018 Other reaction(s): Dizziness Peanut (Diagnostic) Shortness Of Breath High 014 [place] Oil Shortness Of Breath High 05/06/2018 Other reaction(s): Edema Medications Medication Sig Dispensed Refills Start Date End Date Status EPINEPHrine (EPIPEN/ADRENACLICK/ OR ANY BX GENERIC EQUIV) 0.3 MG/0.3ML injection 2-pack INJECT 1 PEN UTD FOR ALLERGIC REACTION UTD 3 06/01/2017 Active Prenat w/o R-RT-Diygmry-FA-DHA (PNV-DHA) 27-0.6-0.4-300 MG CAPSIndications:Preg dom Take 1 tablet by mouth daily 90 capsule 3 07/06/2018 Active Active Problems Problem Noted Date Diagnosed Date Indication for care in labor or delivery 019 12/15/2018 (normal spontaneous vaginal delivery) 12/15 Nausea 12/02/2018 Encounter for triage in patient 019 Vaginal bleeding 10/30/2018 Echogenic focus of heart of fetus affecting antepartum care of mother, single gestation 08/14/2018 Low lying placenta nos or wi thout hemorrhage, second trimester 08/14/2018 Amenorrhea 07/21/2018 Overview: Overview: Created by Conversion Antidepressants causing adverse effect in therap eutic use 07/21/2018 Overview: Overview: Created by Conversion Excessive or frequent menstruation 07/21/2018 Overview: Overview: Created by Conversion Major depression, single episode 07/21/2018 Overview: Overview: Created by Conversion Migraine headache 07/21/2018 Overview: Overview: Created by Conversion Replacement Utility updated for latest IMO load Allergic rhinitis 07/19/2018 Overview: Overview: Created by Conversion Replacement Utility updated for latest IMO load Supervision of normal IUP (i ntrauterine ) in primigravida 06/03/2018 Overview: EDC 12/25/18 by L=first tri US. GIRL FOB: Ruslan Innatal: yes, AFP neg Flu: done Tdap: 10/11 hx: PTSD, anx/dep, cutting, conduct disorder LL placenta. ECIF. Repeat US 28-32wk. 1 Hr GCT/Hgb: passed 103, 10.8 Nut allergy 05/06/2018 Overview: Overview: Created by Conversion Anxiety and depression 05/06/2018 Immunizations Name Administration Dates Next Due HPV Quadrivalent 06/08/2012,01/20/2012, 2 HepB, Unspecified 06/01/1998,02/20/1998,12/09/18 98 Influenza Vaccine >6 months,quad, PF 12/06/2018, 05/06/2018 Influenza Vaccine, 6+MO IM ( QUADRIVALENT W/PRESERVATIVES) 05/06/2017 MMR 11/13/2011,09/11/2003,11/30/1998 Meningococcal ACWY (Menactra??) 12/07/2012 TDAP Vaccine (Adacel) 10/11/2018,10/09/2010 Varicella 11/13/2011,10/09/2010,11/30/1998 Social History Tobacco Use Types Packs/Day Years Used Date Smoking Tobacco: Never Smokeless Tobacco: Never Tobacco Cessation:Counseling Given: No Alcohol Use Standard Drinks/Week Comments No 0 (1 standard drink = 0.6 oz pur e alcohol) PHQ-2 Answer Date Recorded PHQ-2 Score 1 10/16/2020 [place] Depression Scale Answer Date Recorded [place] Depression Score 8 12/17/2018 Last EPDS Self Harm Result Not on file 12/17 Adolescent Education Answer Date Record ed Getting School Help Needed Not on file 12/05 Education Answer Date Recorded What is the highest level of school you have completed or the highest degree you have received? Some college, no degree 10/16/2020 Sex and Gender Information Value Date Recorded Sex Assigned at Female 10/01/2020 10:47 AM CDT Gender Identity Female 10/01/2020 10:47 AM CDT Sexual Orientation Something else 10/01/2020 10 :47 AM CDT Last Filed Vital Signs Vital Sign Reading Time Taken Comments Blood Pressure 92/60 11/02/2020 9:06 AM CDT Pulse 60 10/09/2020 6:30 PM CDT Temperature 36.4 ??C (97.6 ??F) 10/09/2020 5:14 PM CD T Respiratory Rate 20 10/09/2020 6:00 PM CDT Oxygen Saturation 100% 10/09/2020 6:30 PM CDT Inhaled Oxygen Concentration - - Weight 65.8 kg (145 lb) 11/02/2020 9:06 AM CDT Height 157.5 cm (5' 2) 11/02/2020 9:06 AM CDT Body Mass Index 26.52 11/02/2020 9:06 AM CDT Plan of Treatment Not on file Procedures Procedure Name Priority Date/Time Associated Diagnosis Comments HIV ANTIGEN ANTIBODY COMBO Routine 10/24/2020 1:14 PM CDT Encounter for supervision of other normal in first trimester HEPATITIS C ANTIBODY Routine 10/24/2020 1:14 PM CDT Encounter for supervision of other normal in first trimester PAP IMAGED THIN LAYER SCREEN Routine 01/27/2019 9:50 AM BASE MANAGER Screening for cervical cancer Routine follow-up CHLAMYDIA TRACHOMATIS PCR STAT 10/18/2017 4:50 PM CDT Abdominal pain, left lower quadrant from Last 3 Months or Most Recently Relevant to Health Maintenance Results * HIV Antigen Antibody Combo (10/24/2020 1:14 PM CDT) Pathologist [facility] HIV Antigen Antibody Combo Nonreactive Nonreactive 10/25/2020 11:19 AM CDT [facility] Comment:HIV-1 p24 Ag & HIV-1 /HIV-2 Ab Not Detected Blood STRUCTURE OF RIGHT UPPER LIMB / Unknown Venipuncture / Unknown 10/24/2020 1:14 PM CDT 10/24/2020 1:15 PM CDT Nicolasa Sapp MD LAB - BLOOD ORDER [facility] Specialty Core Lab [address] [facility], [address] [address], [place] [phone] * Hepatitis C antibody (10/24/2020 1:14 PM CDT) [facility] Hepatitis C Antibody Nonreactive Nonreactive 10/25/2020 11:19 AM CDT [facility] Blood STRUCTURE OF RIGHT UPPER LIMB / Unknown Venipuncture / Unknown 10/24/2020 1:14 PM CDT 10/24/2020 1:15 PM CDT Narrative [facility] - 10/25/2020 11:19 AM CDT Assay performance characteristics have not been established for newborns, infants, and children. Nicolasa Sapp MD LAB - BLOOD ORDER [facility] Specialty Core Lab [address] [facility], [id number] [address], [place] [phone] * Pap imaged thin layer screen only - recommended age 21 - 24 years (01/27/2019 9:50 AM BASE MANAGER) PAP TERESA Leos Report Patient Name: JOVANY PARKER MR#: [id number] Specimen #: [id number] Collected: 01/27/2019 Received: 01/28/2019 Reported: 02/02/2019 10:22 Ordering Phy(s): YESI ESPINOZA MASTERS For improved result formatting, select 'View Enhanced Report Format' under Linked Documents section. SPECIMEN/STAIN PROCESS: Pap imaged thin layer prep screening (Surepath, FocalPoint with guided screening) ? Pap-Cyto x 1 SOURCE: Cervical, endocervical Pap imaged thin layer prep screening (Surepath, FocalPoint with guided screening) SPECIMEN ADEQUACY: Satisfactory for evaluation. -Transformation zone component present. CYTOLOGIC INTERPRETATION: Negative for intraepithelial lesion or malignancy Electronically signed out by: JOYCELYN Stephens (ASCP) CLINICAL HISTORY: LMP: 01/04/2019 Post-, Papanicolaou Test Limitations: ??Cervical cytology is a screening test with limited sensitivity; regular screening is critical for cancer prevention; Pap tests are primarily effective for the diagnosis/preventi on of squamous cell carcinoma, not adenocarcinomas or other cancers. COLLECTION SITE: Client: ??[facility] Location: [facility]IL[facility] (S) The technical component of this testing was completed at the [facility], with the professional component performed at the [facility], [address] [place] [phone] ([phone]) LANG Cytologic material (specimen) 01/27/2019 9:50 AM BASE MANAGER 01/28/2019 9:39 AM BASE MANAGER Yesi Espinoza Masters DO LAB - OPTIME CL INICAL SPECIMEN COPATH * Chlamydia trachomatis PCR (10/18/2017 4:50 PM CDT) Specimen Description Vagina 10/18/2017 4:59 PM CDT [facility] Chlamydia Trachomatis PCR Negative NEG^Negat rosanne 10/19/2017 11:45 AM CDT [facility] Comment: Negative for C. trachomatis rRNA by facilities maintenance manager mediated amplification. A negative result by facilities maintenance manager mediated amplification does not preclude the presence of C. trachomatis infection because results are dependent on proper and adequate collection, absence of inhibitors, and sufficient rRNA to be detected. Specimen from vagina (specimen) 10/18/2017 4:50 PM CDT 10/18/2017 4:59 PM CDT Bk Saldana MD LAB - MICRO GENER AL ORDERABLES Performing Organization Address City/[facility]/ZIP Co de Phone Number [facility] [address] [place], [place] [id number] [place] [address] Aleah Rocha [place], [place] [address] [phone] from Last 3 Months or Most Recently Relevant to Health Maintenance Care Teams Gear Hobber Relationship Specialty Start Date End Date No Ref-Primary, Physician PCP - General 12/11/14
--- OUTSIDE RECORDS SUMMARY | 2023-09-16 21:27 | XMS_ITS | Encounter Summary ---
Author Organization [facility] Address [address] [place] [address]. [place] [address] Care Team Providers Care Numerical Tool Programmer Name Role Phone No Ref-Primary, Physician Primary Care Provider Elva Ramos APRN CN Unavailable [phone] Nicolasa Sapp MD Unavailable [phone] Encounter Details Date Type Department Care Team (Late st Contact Info) Description 10/02/2020 MyC Medical Advice [address] [address] Nicole Garcia, AUTOMOTIVE MACHINIST APPRENTICE Social History Tobacco Use Types Packs/Day Years Used Date Smoking Tobacco: Never Smokeless Tobacco: Never Alcohol Use Standard Drinks/Week Comments No 0 (1 standard drink = 0.6 oz pur e alcohol) PHQ-2 Answer Date Recorded PHQ-2 Score 0 03/03/2019 [place] Depression Scale Answer Date Recorded [place] Depression Score 8 12/17/2018 Last EPDS Self [...] Total Score: 11 01/27/ 019 9:38 AM ENTERTAINMENT MANAGER documented as of this encounter Care Teams Numerical Tool Programmer Relationship Specialty Start Date End Date No Ref-Primary, Physician PCP - General 02/23/14 Elva Ramos APRN CNM [address] [address] Assigned OBGYN Provider 07/01/20 Nicolasa Sapp MD [address], [address] [address] Assigned OBGYN Provider 11/11/20 documented as of this encounter
--- OUTSIDE RECORDS SUMMARY | 2023-09-16 21:27 | XMS_ITS | Encounter Summary ---
Author Organization [facility] Address [address] [place] [address]. [place] [address] Care Team Providers Care Double Bottom Driver Name Role Phone No Ref-Primary, Physician Primary Care Provider sInga DO Unavailable [phone] Dottie Lucas MD Unavailable + Elva Ramos APRN [facility] Unavailable [phone] Inga Ibarra DO Unavailable [phone] Nicolasa Sapp MD Unavailable [phone] Reason for Visit * Reason Onset Date Comments Innatal insurance coverage 06/03/2018 quest ioning ins coverage for Innatal testing Encounter Details Date Type Department Care Team (Late st Contact Info) Description 06/03/2018 Telephone [facility] [place] [address] [facility] [address] [place] [address] Le Maya APRN [facility] [address] [facility] [address] [place] [address] Innatal insurance coverage (questioning ins coverage for Innatal testing) Social History Tobacco Use Types Packs/Day Years Used Date Smoking Tobacco: Never Smokeless Tobacco: Never Alcohol Use Standard Drinks/Week Comments No 0 (1 standard drink = 0.6 oz pur e alcohol) Comments Yes Sex and Gender Information Value Date Recorded Sex Assigned at Female 10/01/2020 10:47 AM CDT Gender Identity Female 10/01/2020 10:47 AM CDT Sexual Orientation Something else 10/01/2020 10 :47 AM CDT documented as of this encounter Miscellaneous Notes * Telephone Encounter - Funmilayo Ramos - 06/03/2018 [...] blood tests. She declines the test for nowand will revisit later. Encouraged pt to call Carl at [facility] to explain the situation and ask for guidance. Info/phone number given to pt. All other [...] documented as of this encounter Care Teams Double Bottom Driver Relationship Specialty Start Date End Date No Ref-Primary, Physician PCP - General 02/23/14 sInga DO [address] [place] [address] Assigned OBGYN Provider 01/06/20 Dottie Lucas MD [address] [place] [address] [place], [place] [address] Assigned OBGYN Provider 06/10/20 Elva [place] APRN CN [address] [facility] [address] [place] [address] Assigned OBGYN Provider 07/01/20 Inga Ibarra DO [address] [place] [address] [place], [place] [address] Assigned OBGYN Provider 06/17/20 Nicolasa Sapp MD [address], [address] [address] Assigned OBGYN Provider 11/11/20 documented as of this encounter
--- OUTSIDE RECORDS SUMMARY | 2023-09-16 21:27 | XMS_ITS | Clinical Summary ---
Author Organization [facility] Address [address] [place] [address]. [place] [address] Care Team Providers Care Tile Setter Name Role Phone No Ref-Primary, Physician Primary Care Provider Allergies Active Allergy Reactions Criticality Noted Date Comments Cat Hair Extract 10/06/2012 Cockroach 10/06/2012 Dust Mite Extract 10/06/2012 Nuts Nausea and Vomiting,Shortness Of Breath High 10/23/2018 Other reaction(s): Dizziness Peanut (Diagnostic) Shortness Of Breath High 014 [place] Oil Shortness Of Breath High 05/06/2018 Other reaction(s): Edema Medications Medication Sig Dispensed Refills Start Date End Date Status EPINEPHrine (EPIPEN/ADRENACLICK/ OR ANY BX GENERIC EQUIV) 0.3 MG/0.3ML injection 2-pack INJECT 1 PEN UTD FOR ALLERGIC REACTION UTD 3 06/01/2017 Active Prenat w/o R-DI-Aofzurx-FA-DHA (PNV-DHA) 27-0.6-0.4-300 MG CAPSIndications:Preg dom Take 1 [...] 12/07/2012 TDAP Vaccine (Adacel) 10/11/2018,10/09/2010 Varicella 11/13/2011,10/09/2010,11/30/1998 Family History Medical History Relation Comments Diabetes [...] Answer Date Recorded PHQ-2 Score 1 10/16/2020 [place] Depression Scale Answer Date Recorded [place] Depression Score 8 12/17/2018 Last EPDS Self [...] 1997 ANNUAL REVIEW OF HM ORDERS 1997 DEPRESSION ACTION PLAN 1997 YEARLY PREVENTIVE VISIT 08/20/2017 08/21/19 17, 08/20/2016, 06/06/2015, Additional history exists PHQ-9 07/28/2019 01/27/2019, 12/30/2018 PAP 01/27/2022 01/27/2019 COVID-19 Vaccine ( season) 2022 INFLUENZA VACCINE (#1) 2023 9, 05/06/2018, 05/06/2017 DTAP/TDAP/TD IMMUNIZATION (3 - Td or Tdap) 10/11/2028 10/11/2018, 10/09/2010 HEPATITIS B IMMUNIZATION Completed 999, 02/20/1998, 1997 HPV IMMUNIZATION Completed 06/08/2012, 08/2011, 11/13/2011 MENINGITIS IMMUNIZATION Aged Out 12/07/2012 No l onger eligible based on patient's age to complete this topic CHLAMYDIA SCREENING Discontinued 05/06/2018, 10/18/2017, 10/18/2017, Additional history exists HEPATITIS C SCREENING Completed 10/24/2020 , 06/19/2017, 02/19/2016 HIV SCREENING Completed 10/24/2020, 05/15, 06/19/2017, Additional history exists IPV IMMUNIZATION Aged Out No longer e ligible based on patient's age to complete this topic Pneumococcal Vaccine: Pediatrics (0 to 5 Years) and At-Risk Patients (6 to 64 Years) Aged Out No longer eligible based on patient's age to complete this topic RSV MONOCLONAL ANTIBODY Aged Out No l onger eligible based on patient's age to complete this topic Procedures Procedure Name Priority Date/Time Associated Diagnosis Comments HIV ANTIGEN ANTIBODY COMBO Routine 10/24/2020 1:14 PM CDT Encounter for supervision of other normal in first trimester HEPATITIS C ANTIBODY Routine 10/24/2020 1:14 PM CDT Encounter for supervision of other normal in first trimester PAP IMAGED THIN LAYER SCREEN Routine 01/27/2019 9:50 AM BODY STRAIGHTENER Screening for cervical cancer Routine follow-up CHLAMYDIA TRACHOMATIS PCR STAT 10/18/2017 4:50 PM CDT Abdominal pain, left lower quadrant from Last 3 Months or Most Recently Relevant to Health Maintenance Results * HIV Antigen Antibody Combo (10/24/2020 1:14 PM CDT) Pathologist [facility] HIV Antigen Antibody Combo Nonreactive Nonreactive 10/25/2020 11:19 AM CDT [facility] Comment:HIV-1 p24 Ag & HIV-1 /HIV-2 Ab Not Detected Blood STRUCTURE OF RIGHT UPPER LIMB / Unknown Venipuncture / Unknown 10/24/2020 1:14 PM CDT 10/24/2020 1:15 PM CDT Nicolasa Sapp MD LAB - BLOOD ORDER [facility] Specialty Core Lab [address] [facility], Room [address] [address], [facility] [phone] * Hepatitis C antibody (10/24/2020 1:14 PM CDT) [facility] Hepatitis C Antibody Nonreactive Nonreactive 10/25/2020 11:19 AM CDT [facility] Blood STRUCTURE OF RIGHT UPPER LIMB / Unknown Venipuncture / Unknown 10/24/2020 1:14 PM CDT 10/24/2020 1:15 PM CDT Narrative [facility] - 10/25/2020 11:19 AM CDT Assay performance characteristics have not been established for newborns, infants, and children. Nicolasa Sapp MD LAB - BLOOD ORDER [facility] Specialty Core Lab [address] [facility], [address] [address], [facility] [phone] * Pap imaged thin layer screen only - recommended age 21 - 24 years (01/27/2019 9:50 AM BODY STRAIGHTENER) Pathologist [facility] PAP NIL COPATH Copath Report Patient Name: JOVANY PARKER MR#: [id number] Specimen #: [id number] Collected: 01/27/2019 Received: 01/28/2019 Reported: 02/02/2019 10:22 Ordering Phy(s): YESI ESPINOZA MASTERRodo For improved result formatting, select 'View Enhanced [...] adenocarcinomas or other cancers. COLLECTION SITE: Client: ??[facility] Location: [place] (S) The technical component of this testing [facility], with the professional component performed at the [facility], [address] [place] [id number] ([phone]) COPATH Cytologic material (specimen) 01/27/2019 9:50 AM BODY STRAIGHTENER 01/28/2019 9:39 AM BODY STRAIGHTENER Yesi Espinoza Masterrodo DO LAB - OPTIME CL INICAL SPECIMEN COPATH * Chlamydia trachomatis PCR (10/18/2017 4:50 PM CDT) Specimen Description Vagina 10/18/2017 4:59 PM CDT [facility] Chlamydia Trachomatis PCR Negative NEG^Negat rosanne 10/19/2017 11:45 AM CDT [facility] Comment: Negative for C. trachomatis rRNA by pigment and lacquer mixer mediated amplification. A negative result by pigment and lacquer mixer mediated amplification does not preclude the presence of C. trachomatis infection because results are dependent on proper and adequate collection, absence of inhibitors, and sufficient rRNA to be detected. Specimen from vagina (specimen) 10/18/2017 4:50 PM CDT 10/18/2017 4:59 PM CDT Bk Saldana MD LAB - MICRO GENER AL ORDERABLES [facility] [address] [place] [address], [facility] [address] [place], [place] [address] [phone] from Last 3 Months or Most Recently Relevant to Health Maintenance Care Teams Tile Setter Relationship Specialty Start Date End Date No Ref-Primary, Physician PCP - General 02/23/14
--- OUTSIDE RECORDS SUMMARY | 2023-09-16 21:27 | XMS_ITS | Referral Summary ---
Author Organization [facility] Address [address] [place] [address] Care Team Providers Care Facility Specialist Name Role Phone Unavailable Primary Care Provider Unavailabl e Source Comments Patient records contain information from all sites at [facility]. For routine questions regarding patient records, call [phone] during business hours, M-F 8:00 AM - 5:00 PM Central Time. Record requests for emergency care only can be directed to [phone] at any time.[facility] Allergies Active Allergy Reactions Criticality Noted Date [...] Comments Blood Pressure 122/86 03/07/2023 10:33 AM CUT IN STATION OPERATOR Pulse 76 03/07/2023 10:33 AM CUT IN STATION OPERATOR Temperature 36.4 ??C (97.5 ??F) 03/07/2023 10:[address] Respiratory Rate - - Oxygen Saturation 98% 03/07/2023 10:33 AM CUT IN STATION OPERATOR Inhaled Oxygen Concentration - - Weight 78.9 kg (174 lb) 01/17/2023 9:39 AM CDT Height - - Body Mass Index - - Plan of Treatment Not on file
--- OUTSIDE RECORDS SUMMARY | 2023-09-16 21:27 | XMS_ITS ---
Author Organization [facility] Address [address] [place] [address] Care Team Providers Care Car Rider Name Role Phone Unavailable Unavailable Unavailable Surgery Details Not on file Complications Check Surgery Details section. Procedure Estimated Blood Loss Check Surgery Details section. Procedure Findings Check Surgery Details section. Procedure Specimens Taken Check Surgery Details section.
--- OUTSIDE RECORDS SUMMARY | 2023-09-16 21:27 | XMS_ITS | Encounter Summary ---
Author Organization [facility] Address [address] [place] [address] Care Team Providers Care Fieldwork Coordinator Name Role Phone No Ref-Primary, Physician Primary Care Provider sInga DO Unavailable [phone] Dottie Lucas MD Unavailable + Elva Ramos APRN Unavailable [phone] Inga Ibarra DO Unavailable [phone] Nicolasa Sapp MD Unavailable [phone] Encounter Details Date Type Department Care Team (Late st Contact Info) Description 06/25/2013 Records - [facility] CONVERSION Scan, Non-Provider Social History Tobacco Use Types Packs/Day Years Used Date Smoking Tobacco: Never Assessed Sex and Gender Information Value Date Recorded [...] documented as of this encounter Care Teams Fieldwork Coordinator Relationship Specialty Start Date End Date No Ref-Primary, Physician PCP - General 02/23/14 Inga Ibarra DO [address] [place] [address] Assigned OBGYN Provider 01/06/20 Dottie Lucas MD [address] [place], [place] [address] Assigned OBGYN Provider 06/10/20 Elva Clarke APRN [facility] [address] [facility] [address] [place] [address] Assigned OBGYN Provider 07/01/20 Inga Ibarra DO [address] [facility] [address] [place] [address] Assigned OBGYN Provider 06/17/20 Nicolasa Sapp MD [address], [facility] [address] [place] [address] Assigned OBGYN Provider 11/11/20 documented as of this encounter
--- OUTSIDE RECORDS SUMMARY | 2023-09-16 21:27 | XMS_ITS | Clinical Summary ---
Author Organization [facility] Address [address] [place] [address] Care Team Providers Care Sheet Metal Shop Foreman Name Role Phone Viola Amaral MD Primary Care Provider Unajohana ilable Source Comments You are receiving this document as you are listed as the primary care provider,follow-up provider, or the patient has been referred to you for consultation.This is in compliance with the Medicare andMedicaid EHR Incentive Program,which states Providers who transition their patient to another setting of careor provider of care or refers their patient to another provider of care shouldprovide summary care record for each transition of care or referral. [employer] Allergies Active Allergy Reactions Criticality Noted Date Comments [place]an Cockroach Other, see comments 10/07/19 13 Cat Hair Extract Other, see comments 10/06/2012 Dust Mite Extract Other, see comments 3 Nuts Nausea And Vomiting,Respiratory Distress High 07/21/2013 Other reaction(s): Dizziness Peanut (Diagnostic) Respiratory Distress High 2013 [place] Oil Edema,generalized,Re sp iratory Distress High 05/06/2018 Other reaction(s): Edema Medications No known medications Active Problems No known active problems Immunizations Name Administration Dates Next Due 4vHPV (Gardasil) 06/08/2012,01/20/2012, 2 DTP 05/04/1998,02/20/1998 DTaP 09/11/2003,02/25/1999,07/11/1998 Flu Vac (3+ yrs) 02/26/2007 Fluzone Qiv Multidose Vial 0 .25 (6-35 Mos) 05/06/2017 Q2N2-Xxuionlnjn 01/18/2008 HepA Adult (19+ yrs) 09/13/2013,12/07/2012 HepB Adult (Engerix-B, 20+ y rs, 3 dose series) 06/01/1998,02/20/1998 HepB Ped/Adol (0-18 yrs) 1997 HepB, Unspecified Formulation 06/01/1998, 998,1997 Hib (PedvaxHIB) 02/25/1999, 9,06/01/1998,1997 IPV (Polio) 09/11/2003, 9,06/01/1998,1997 Influenza (Fluzone 0.25, 6-35 mos) 02/01/2013 Influenza IIV4 (Quadrivalent ) 0.5mL (80986) 12/06/2018,05/06/2018 Influenza Vaccine TIV, Nasal 01/18/2008 MCV4 (Menactra) 08/20/2016,12/07/2012 MCV4 Menveo 2m.+ (two vial) 12/07/2012 MMR 11/13/2011,09/11/2003,11/30/1998 TB Skin Test (PPD) 10/14/2017 Tdap 07/26/2021,10/11/2018,10/09/2010 Varicella 11/13/2011,10/09/2010,11/30/1998 Social History Tobacco Use Types Packs/Day Years Used Date Smoking Tobacco: Never Tobacco Cessation:Counseling Given: Not Answered Alcohol Use Standard Drinks/Week Comments Not Currently 0 (1 standard drink = 0.6 oz pur e alcohol) Sex and Gender Information Value Date Recorded Sex Assigned at Not on file Gender Identity Not on file Sexual Orientation Not on file Last Filed Vital Signs Vital Sign Reading Time Taken Comments Blood Pressure 106/67 05/16/2022 10:27 AM REWORK MACHINE OPERATOR Pulse 60 12/01/2011 8:21 PM CDT Temperature 37 ??C (98.6 ??F) 12/01/2011 8:21 PM CDT Respiratory Rate 16 12/01/2011 8:21 PM CDT Oxygen Saturation - - Inhaled Oxygen Concentration - - Weight 79.1 kg (174 lb 6.4 oz) 05/16/2022 10:27 AM REWORK MACHINE OPERATOR Height 157.5 cm (5' 2) 12/01/2011 8:21 PM CDT Body Mass Index - - Plan of Treatment Health Maintenance Due Date Last Done Comments Chlamydia 1997 Hep C Screening (Preventive Services) 1997 HIV Screening (Preventive Services) 2013 Adult Preventive Visit 12/09/2015 COVID-19 Vaccine ( season) 2022 Influenza (Season Ended) 2023 019, 05/06/2018, 05/06/2017, Additional history exists Cervical Cancer Screening 05/16/2025 05/16/2022 DTaP/Tdap/Td (9 - Tdap) 07/27/2031 07/27/19, 10/11/2018, 10/09/2010, Additional history exists Zoster/Shingles (1 of 2) 12/09/2047 HepB Completed 06/01/1998, 05/14, 02/20/1998, Additional history exists Hib Completed 02/25/1999, 06/15, 06/01/1998, Additional history exists IPV (Polio) Completed 09/11/2003, 11/14, 06/01/1998, Additional history exists Varicella Completed 11/13/2011, 09/14, 11/30/1998 HPV Vaccine Completed 06/08/2012, 11/0 08/2011, 11/13/2011 HepA Completed 09/13/2013, 12/07/2012 MCV4 Completed 08/20/2016, 11/15, 12/07/2012 Pneumococcal Aged Out No longer eligi ble based on patient's age to complete this topic Procedures Procedure Name Priority Date/Time Associated Diagnosis Comments PAP TEST Routine 05/16/2022 10:52 AM REWORK MACHINE OPERATOR Pap smear for cervical cancer screening from Last 3 Months or Most Recently Relevant to Health Maintenance Results * PAP Test (05/16/2022 10:52 AM REWORK MACHINE OPERATOR) Case Report Pap ? Case: [id number] ? Authorizing Provider: ??Kamala Em, DO ? Collected: ? 05/16/2022 1052 ? Ordering Location: ? [place] [id number] ?Received: ?05/16/2022 1230 ? Obstetrics/Gyneco logy ? First Screen: ?Adilene Low ? Specimen: ?Pap Test, Routine, Cervix/Endocervix ? 06/03/2022 2:50 PM CDT [facility] Pap Specimen Adequacy Satisfactory for evaluation, endocervical/bo sformation zone component present. 06/03/2022 2:50 PM CDT [facility] Pap Interpretation (NILM) Negative for intraepithelial lesion or malignancy. 06/03/2022 2:50 PM CDT [facility] Pap Other Findings Fungal organisms morphologically consistent with Marilu spp. 06/03/2022 2:50 PM CDT [facility] Pap Disclaimer The Pap test is a screening test designed to aid in the detection of cervical cancer and its precursor lesions. It is not a diagnostic procedure and should not be used as the sole means of detecting cervical cancer. Both false-positive and false-negative results may occur. 06/03/2022 2:50 PM CDT [facility] Gross Description The specimen is received in SurePath fixative and properly labeled. 1 Pap-stained SurePath slide is prepared. 06/03/2022 2:50 PM CDT [facility] Embedded Images 2:50 PM CDT [facility] Other Specimen Type ENTIRE ENDOCERVIX / Unknown 05/16/2022 10:52 AM REWORK MACHINE OPERATOR 05/16/2022 12:30 PM REWORK MACHINE OPERATOR Comment:LMP: Patient's last menstrual period was 04/23/2022 (approximate). Kamala Em DO LAB PATHOLOGY [facility] [address] from Last 3 Months or Most Recently Relevant to Health Maintenance Care Teams Sheet Metal Shop Foreman Relationship Specialty Start Date End Date Viola Amaral MD PCP - General Pediatric Medicine 03/29/12
--- OUTSIDE RECORDS SUMMARY | 2023-09-16 21:27 | XMS_ITS | Encounter Summary ---
Author Organization [facility] Address [address] [place] [address]. [place] [address] Care Team Providers Care Upholsterer Apprentice Name Role Phone No Ref-Primary, Physician Primary Care Provider Inga Ibarra DO Unavailable [phone] Dottie Lucas MD Unavailable + Elva Ramos APRN Unavailable [phone] Inga Ibarra DO Unavailable [phone] Nicolasa Sapp MD Unavailable [phone] Encounter Details Date Type Department Care Team (Late st Contact Info) Description 07/09/2018 [facility] Medical Advice [facility] [address] [id number] Maryana Crawford, RN Social History Tobacco Use Types Packs/Day [...] documented as of this encounter Care Teams Upholsterer Apprentice Relationship Specialty Start Date End Date No Ref-Primary, Physician PCP - General 02/23/14 Inga Ibarra, [address] [place], [place] [address] Assigned OBGYN Provider 01/06/20 Dottie Lucas MD [address] [place] [address] Assigned OBGYN Provider 06/10/20 1 Elva Ramos APRN [facility] [address] [place], [place] [address] Assigned OBGYN Provider 07/01/20 Inga Ibarra, [address] [place] [address] Assigned OBGYN Provider 06/17/20 Nicolasa Sapp MD [address] [place] [address] Assigned OBGYN Provider 11/11/20 documented as of this encounter
[2023-09-16 21:29] LABS: Anion Gap 10 mEq/L (7-15); Carbon Dioxide* 25 mmol/L (20-32); Creatinine* 0.8 mg/dL (0.5-1.5); Est. Creatinine Clearance* 85.02; Estimated Glomerular Filt Rate 105 ml/min; Slide Review Reflex No
[2023-09-16 21:30] LABS: Alanine Aminotransferase* 23 U/L (4-35); Alkaline Phosphatase* 70 U/L (40-150); Aspartate Amino Transferase* 23 U/L (12-35); Bilirubin Direct* 0.3 mg/dL (0.0-0.5); Bilirubin Total* 0.4 mg/dL (0.1-1.5); Blood Urea Nitrogen* 15 mg/dL (5-24); Calcium* 9.2 mg/dL (8.4-10.6); Glucose* 82 mg/dL (60-115); Total Protein* 8.1 g/dL (6.0-8.3)
[2023-09-16 22:29] LABS: HCG Qualitative Serum* Negative (Negative)
[2023-09-16 22:49] LABS: C Reactive Protein* < 0.5 mg/dL (0.5-1.0)
[2023-09-16 23:07] VITALS: BP 131/66; PULSE 59; RESP 18; O2SAT 98
[2023-09-19 23:10] LABS: Ova and Parasite, Fecal Negative (Negative)
== END 2023-09-16 23:13 | disposition home or self-care (01) ==
PROVIDERS: Emergency Provider Family Medicine; PCP Family Medicine
DX: K92.2 Gastrointestinal hemorrhage, unspecified (principal)
CPT/HCPCS: 36415; 74177; 80048; 80076; 84703; 85025; 86140; 87045; 87046; 87177; 87209; 87427; 99283; 99284; 99285; J7030; Q9967

== ENCOUNTER 2023-10-08 14:42 | Outpatient (CLI) | payer OTHER, SELFPAY ==
--- OUTSIDE RECORDS SUMMARY | 2023-10-08 14:46 | XMS_ITS | Referral Summary ---
Author Organization [facility] Address [address] [place] [address] Care Team Providers Care Polysomnograph Tech Name Role Phone Unavailable Primary Care Provider Unavailabl e Source Comments Patient records contain information from all sites at [facility]. For routine questions regarding patient records, call [phone] during business hours, M-F 8:00 AM - 5:00 PM Central Time. Record requests for emergency care only can be directed to [phone] at any time.[facility] Allergies Active Allergy Reactions Criticality Noted Date [...] Comments Blood Pressure 122/86 03/07/2023 10:33 AM KITCHEN HELPER Pulse 76 03/07/2023 10:33 AM KITCHEN HELPER Temperature 36.4 ??C (97.5 ??F) 03/07/2023 10:[address] Respiratory Rate - - Oxygen Saturation 98% 03/07/2023 10:33 AM KITCHEN HELPER Inhaled Oxygen Concentration - - Weight 78.9 kg (174 lb) 01/17/2023 9:39 AM CDT Height - - Body Mass Index - - Plan of Treatment Not on file
--- OUTSIDE RECORDS SUMMARY | 2023-10-08 14:46 | XMS_ITS | Encounter Summary ---
Author Organization [facility] Address [address] [place] [address]. [place] [address] Care Team Providers Care Steam Plant Control Room Operator Name Role Phone No Ref-Primary, Physician Primary Care Provider sInga DO Unavailable [phone] Dottie Lucas MD Unavailable + Elva Ramos APRN Unavailable [phone] Inga Ibarra DO Unavailable [phone] Nicolasa Sapp MD Unavailable [phone] Encounter Details Date Type Department Care Team [...] documented as of this encounter Care Teams Steam Plant Control Room Operator Relationship Specialty Start Date End Date No Ref-Primary, Physician PCP - General 02/23/14 Inga Ibarra DO [address] [place] [address] Assigned OBGYN Provider 01/06/20 Dottie Lucas MD [address] [place], [place] [address] Assigned OBGYN Provider 06/10/20 Elva Clarke APRN [facility] [address] [facility] [address] [place] [address] Assigned OBGYN Provider 07/01/20 Inga Ibarra DO [address] [facility] [address] [place] [address] Assigned OBGYN Provider 06/17/20 Nicolasa Sapp MD [address], [facility] [address] [place] [address] Assigned OBGYN Provider 11/11/20 documented as of this encounter
--- OUTSIDE RECORDS SUMMARY | 2023-10-08 14:46 | XMS_ITS | Encounter Summary ---
Author Organization [facility] Address [address] [place] [address]. [place] [address] Care Team Providers Care Principal Data Architect Name Role Phone No Ref-Primary, Physician Primary Care Provider Elva Ramos APRN Unavailable [phone] Nicolasa Sapp MD Unavailable [phone] Encounter Details Date Type Department Care Team (Late st Contact Info) Description 10/16/2020 [facility] Medical Advice [facility] [address] [facility] [address] [place] [address] Nancy Howell, RN Social History Tobacco Use Types Packs/Day Years Used Date Smoking Tobacco: Never Smokeless Tobacco: Never Alcohol Use Standard Drinks/Week Comments No 0 (1 standard drink = 0.6 oz pur e alcohol) PHQ-2 Answer Date Recorded PHQ-2 Score 1 10/16/2020 [place] Depression Scale Answer Date Recorded [place] Depression Score 8 12/17/2018 Last EPDS Self [...] Total Score: 11 01/27/2 019 9:38 AM COAT AGENT documented as of this encounter Care Teams Principal Data Architect Relationship Specialty Start Date End Date No Ref-Primary, Physician PCP - General 02/23/14 Elva Ramos APRN CN[facility] [address] [facility] [address] [place] [address] Assigned OBGYN Provider 07/01/20 Nicolasa Sapp MD [address], [facility] [address] [place], [place] [address] Assigned OBGYN Provider 11/11/20 documented as of this encounter
--- OUTSIDE RECORDS SUMMARY | 2023-10-08 14:46 | XMS_ITS | Clinical Summary ---
Author Organization [facility] Address [address] [place] [address] Care Team Providers Care Director Physical Therapy Name Role Phone Unavailable Primary Care Provider Unavailabl e Source Comments Patient records contain information from all sites at [facility]. For routine questions regarding patient records, call [phone] during business hours, M-F 8:00 AM - 5:00 PM Central Time. Record requests for emergency care only can be directed to [phone] at any time.[facility] Allergies Active Allergy Reactions Criticality Noted Date [...] Comments Blood Pressure 122/86 03/07/2023 10:33 AM ACCOUNTS CLERK Pulse 76 03/07/2023 10:33 AM ACCOUNTS CLERK Temperature 36.4 ??C (97.5 ??F) 03/07/2023 10:[address] Respiratory Rate - - Oxygen Saturation 98% 03/07/2023 10:33 AM ACCOUNTS CLERK Inhaled Oxygen Concentration - - Weight 78.9 [...]
--- OUTSIDE RECORDS SUMMARY | 2023-10-08 14:46 | XMS_ITS | Encounter Summary ---
Author Organization [facility] Address [address] [place] [address]. [place] [address] Care Team Providers Care Correctional Captain Name Role Phone No Ref-Primary, Physician Primary Care Provider Elva Ramos APRN CN Unavailable [phone] Nicolasa Sapp MD Unavailable [phone] Encounter Details Date Type Department Care Team (Late st Contact Info) Description 10/01/2020 My[facility] Medical Advice [address] [address] Nicole Garcia, MUSEUM PREPARATOR Social History Tobacco Use Types Packs/Day Years Used Date Smoking Tobacco: Never Smokeless Tobacco: Never Alcohol Use Standard Drinks/Week Comments No 0 (1 standard drink = 0.6 oz pur e alcohol) PHQ-2 Answer Date Recorded PHQ-2 Score 0 03/03/2019 [place] Depression Scale Answer Date Recorded [place] Depression Score 8 12/17/2018 Last EPDS Self [...] Total Score: 11 01/27/ 019 9:38 AM BEARING PRESS MACHINE OPERATOR documented as of this encounter Care Teams Correctional Captain Relationship Specialty Start Date End Date No Ref-Primary, Physician PCP - General 02/23/14 Elva Ramos APRN CN[facility] [address] [address] Assigned OBGYN Provider 07/01/20 Nicolasa Sapp MD [address], [address] [address] Assigned OBGYN Provider 11/11/20 documented as of this encounter
--- OUTSIDE RECORDS SUMMARY | 2023-10-08 14:46 | XMS_ITS | Encounter Summary ---
Author Organization [place] Address [address] [place] [address]. [place] [address] Care Team Providers Care Brass Instrument Repair Technician Name Role Phone No Ref-Primary, Physician Primary Care Provider sInga DO Unavailable [phone] Dottie Lucas MD Unavailable + Elva Ramos APRN Unavailable [phone] Inga Ibarra DO Unavailable [phone] Nicolasa Sapp MD Unavailable [phone] Encounter Details Date Type Department Care Team [...] documented as of this encounter Care Teams Brass Instrument Repair Technician Relationship Specialty Start Date End Date No Ref-Primary, Physician PCP - General 02/23/14 Inga Ibarra DO [address] [place], [place] [address] Assigned OBGYN Provider 01/06/20 Dottie Lucas MD [address] [place], [place] [address] Assigned OBGYN Provider 06/10/20 1 Elva Ramos APRN [facility] [address] [place] [address] Assigned OBGYN Provider 07/01/20 Inga Ibarra DO [address] [place] [address] Assigned OBGYN Provider 06/17/20 Nicolasa Sapp MD [address], [address] [place] [address] Assigned OBGYN Provider 11/11/20 documented as of this encounter
--- OUTSIDE RECORDS SUMMARY | 2023-10-08 14:46 | XMS_ITS | Encounter Summary ---
Author Organization [place] Address [address] [place] [address]. [place] [address] Care Team Providers Care Web Services Manager Name Role Phone No Ref-Primary, Physician Primary Care Provider Elva Ramos APRN Unavailable [phone] Nicolasa Sapp MD Unavailable [phone] Encounter Details Date Type Department Care Team (Late st Contact Info) Description 11/05/2020 [facility] [place] [address] [place] [address] Nicolasa Sapp MD [address], [address] [place] [address] Social History Tobacco Use Types Packs/Day Years Used Date Smoking Tobacco: Never Smokeless Tobacco: Never Alcohol Use Standard Drinks/Week Comments No 0 (1 standard drink = 0.6 oz pur e alcohol) PHQ-2 Answer Date Recorded PHQ-2 Score 1 10/16/2020 [place] Depression Scale Answer Date Recorded [place] Depression Score 8 12/17/2018 Last EPDS Self [...] Total Score: 11 01/27/ 019 9:38 AM ITALIAN TUTOR documented as of this encounter Care Teams Web Services Manager Relationship Specialty Start Date End Date No Ref-Primary, Physician PCP - General 02/23/14 Elva Ramos APRN CNM [address] [address] Assigned OBGYN Provider 07/01/20 Nicolasa Sapp MD [address] [address] Assigned OBGYN Provider 11/11/20 documented as of this encounter
--- OUTSIDE RECORDS SUMMARY | 2023-10-08 14:46 | XMS_ITS | Encounter Summary ---
Author Organization [place] Address [address] [place] [address]. [place] [address] Care Team Providers Care Carroting Machine Operator Name Role Phone No Ref-Primary, Physician Primary Care Provider Elva Ramos APRN CN Unavailable [phone] Nicolasa Sapp MD Unavailable [phone] Encounter Details Date Type Department Care Team (Late st Contact Info) Description 10/02/2020 [facility] [address] [address] Nicole Garcia, [place] Social History Tobacco Use Types Packs/Day Years Used Date Smoking Tobacco: Never Smokeless Tobacco: Never Alcohol Use Standard Drinks/Week Comments No 0 (1 standard drink = 0.6 oz pur e alcohol) PHQ-2 Answer Date Recorded PHQ-2 Score 0 03/03/2019 [place] Depression Scale Answer Date Recorded [place] Depression Score 8 12/17/2018 Last EPDS Self [...] Total Score: 11 01/27/ 019 9:38 AM MANUFACTURING SUPPORT ENGINEER documented as of this encounter Care Teams Carroting Machine Operator Relationship Specialty Start Date End Date No Ref-Primary, Physician PCP - General 02/23/14 Elva Ramos APRN CNM [address] [address] Assigned OBGYN Provider 07/01/20 Nicolasa Sapp MD [address], [address] [address] Assigned OBGYN Provider 11/11/20 documented as of this encounter
--- OUTSIDE RECORDS SUMMARY | 2023-10-08 14:46 | XMS_ITS | Clinical Summary ---
Author Organization [place] Address [address] [place] [address]. [place] [address] Care Team Providers Care Cook Helper Fruit Name Role Phone No Ref-Primary, Physician Primary Care Provider Allergies Active Allergy Reactions Criticality Noted Date Comments Cat Hair Extract 10/06/2012 Cockroach 10/06/2012 Dust Mite Extract 10/06/2012 Nuts Nausea and Vomiting,Shortness Of Breath High 10/23/2018 Other reaction(s): Dizziness Peanut (Diagnostic) Shortness Of Breath High 014 [place] Oil Shortness Of Breath High 05/06/2018 Other reaction(s): Edema Medications Medication Sig Dispensed Refills Start Date End Date Status EPINEPHrine (EPIPEN/ADRENACLICK/ OR ANY BX GENERIC EQUIV) 0.3 MG/0.3ML injection 2-pack INJECT 1 PEN UTD FOR ALLERGIC REACTION UTD 3 06/01/2017 Active Prenat w/o J-ZF-Ufyufaa-FA-DHA (PNV-DHA) 27-0.6-0.4-300 MG CAPSIndications:Preg dom Take 1 [...] Answer Date Recorded PHQ-2 Score 1 10/16/2020 [place] Depression Scale Answer Date Recorded [place] Depression Score 8 12/17/2018 Last EPDS Self [...] THIN LAYER SCREEN Routine 01/27/2019 9:50 AM MANAGER PERFORMANCE Screening for cervical cancer Routine follow-up CHLAMYDIA TRACHOMATIS PCR STAT 10/18/2017 4:50 PM CDT Abdominal pain, left lower quadrant from Last 3 Months or Most Recently Relevant to Health Maintenance Results * HIV Antigen Antibody Combo (10/24/2020 1:14 PM CDT) Pathologist [facility] HIV Antigen Antibody Combo Nonreactive Nonreactive 10/25/2020 11:19 AM CDT [facility] Comment:HIV-1 p24 Ag & HIV-1 /HIV-2 Ab Not Detected Blood STRUCTURE OF RIGHT UPPER LIMB / Unknown Venipuncture / Unknown 10/24/2020 1:14 PM CDT 10/24/2020 1:15 PM CDT Nicolasa Sapp MD LAB - BLOOD ORDER [facility] Specialty Core Lab [address] [facility], [address] [address], [facility] [phone] * Hepatitis C antibody (10/24/2020 1:14 PM CDT) [facility] Hepatitis C Antibody Nonreactive Nonreactive 10/25/2020 11:19 AM CDT [facility] Blood STRUCTURE OF RIGHT UPPER LIMB / Unknown Venipuncture / Unknown 10/24/2020 1:14 PM CDT 10/24/2020 1:15 PM CDT Narrative [facility] - 10/25/2020 11:19 AM CDT Assay performance characteristics have not been established for newborns, infants, and children. Nicolasa Sapp MD LAB - BLOOD ORDER [facility] Specialty Core Lab [address] [facility], [address] [address], [facility] [phone] * Pap imaged thin layer screen only - recommended age 21 - 24 years (01/27/2019 9:50 AM MANAGER PERFORMANCE) Pathologist [facility] PAP NIL COPATH Copath Report Patient Name: JOVANY PARKER MR#: [id number] Specimen #: [id number] Collected: 01/27/2019 Received: 01/28/2019 Reported: 02/02/2019 10:22 [...] adenocarcinomas or other cancers. COLLECTION SITE: Client: ??[facility] Location: [place] (S) The technical component of this testing [facility], with the professional component performed at the [facility], [address] [place] [address] ([phone]) COPATH Cytologic material (specimen) 01/27/2019 9:50 AM MANAGER PERFORMANCE 01/28/2019 9:39 AM MANAGER PERFORMANCE Yesi Espinoza Masterrodo DO LAB - OPTIME CL INICAL SPECIMEN COPATH * Chlamydia trachomatis PCR (10/18/2017 4:50 PM CDT) Specimen Description Vagina 10/18/2017 4:59 PM CDT [facility] Chlamydia Trachomatis PCR Negative NEG^Negat rosanne 10/19/2017 11:45 AM CDT [facility] Comment: Negative for C. trachomatis rRNA by core filer mediated amplification. A negative result by core filer mediated amplification does not preclude the presence of C. trachomatis infection because results are dependent on proper and adequate collection, absence of inhibitors, and sufficient rRNA to be detected. Specimen from vagina (specimen) 10/18/2017 4:50 PM CDT 10/18/2017 4:59 PM CDT Bk Saldana MD LAB - MICRO GENER AL ORDERABLES [facility] [address] [place] [address], [facility] [address] [place], [place] [address] [phone] from Last 3 Months or Most Recently Relevant to Health Maintenance Care Teams Cook Helper Fruit Relationship Specialty Start Date End Date No Ref-Primary, Physician PCP - General 02/23/14
--- OUTSIDE RECORDS SUMMARY | 2023-10-08 14:46 | XMS_ITS | Encounter Summary ---
Author Organization [place] Address [address] [place] [address]. [place] [address] Care Team Providers Care Deck Builder Name Role Phone No Ref-Primary, Physician Primary Care Provider Inga Ibarra DO Unavailable [phone] Dottie Lucas MD Unavailable + Elva Ramos APRN Unavailable [phone] Inga Ibarra DO Unavailable [phone] Nicolasa Sapp MD Unavailable [phone] Encounter Details Date Type Department Care Team (Late st Contact Info) Description 07/09/2018 [facility] [place] [facility] [address] [phone] Maryana Crawford, RN Social History Tobacco Use [...] documented as of this encounter Care Teams Deck Builder Relationship Specialty Start Date End Date No Ref-Primary, Physician PCP - General 02/23/14 Inga Ibarra, [address] [place], [place] [address] Assigned OBGYN Provider 01/06/20 Dottie Lucas MD [address] [place] [address] Assigned OBGYN Provider 06/10/20 1 Elva Ramos APRN [facility] [address] [place], [place] [address] Assigned OBGYN Provider 07/01/20 Inga Ibarra, [address] [place] [address] Assigned OBGYN Provider 06/17/20 Nicolasa Sapp MD [address] [place] [address] Assigned OBGYN Provider 11/11/20 documented as of this encounter
--- OUTSIDE RECORDS SUMMARY | 2023-10-08 14:46 | XMS_ITS | Referral Summary ---
Author Organization [place] Address [address] [place] [address]. [place] [address] Care Team Providers Care Director Of Procurement Name Role Phone No Ref-Primary, Physician Primary Care Provider Allergies Active Allergy Reactions Criticality Noted Date Comments Cat Hair Extract 10/06/2012 Cockroach 10/06/2012 Dust Mite Extract 10/06/2012 Nuts Nausea and Vomiting,Shortness Of Breath High 10/23/2018 Other reaction(s): Dizziness Peanut (Diagnostic) Shortness Of Breath High 014 [place] Oil Shortness Of Breath High 05/06/2018 Other reaction(s): Edema Medications Medication Sig Dispensed Refills Start Date End Date Status EPINEPHrine (EPIPEN/ADRENACLICK/ OR ANY BX GENERIC EQUIV) 0.3 MG/0.3ML injection 2-pack INJECT 1 PEN UTD FOR ALLERGIC REACTION UTD 3 06/01/2017 Active Prenat w/o H-DA-Inzrjks-FA-DHA (PNV-DHA) 27-0.6-0.4-300 MG CAPSIndications:Preg dom Take 1 [...] Answer Date Recorded PHQ-2 Score 1 10/16/2020 [place] Depression Scale Answer Date Recorded [place] Depression Score 8 12/17/2018 Last EPDS Self [...] THIN LAYER SCREEN Routine 01/27/2019 9:50 AM SALES INSPECTOR Screening for cervical cancer Routine follow-up CHLAMYDIA TRACHOMATIS PCR STAT 10/18/2017 4:50 PM CDT Abdominal pain, left lower quadrant from Last 3 Months or Most Recently Relevant to Health Maintenance Results * HIV Antigen Antibody Combo (10/24/2020 1:14 PM CDT) Pathologist [facility] HIV Antigen Antibody Combo Nonreactive Nonreactive 10/25/2020 11:19 AM CDT [facility] Comment:HIV-1 p24 Ag & HIV-1 /HIV-2 Ab Not Detected Blood STRUCTURE OF RIGHT UPPER LIMB / Unknown Venipuncture / Unknown 10/24/2020 1:14 PM CDT 10/24/2020 1:15 PM CDT Nicolasa Sapp MD LAB - BLOOD ORDER [facility] Specialty Core Lab [address] [facility], [address] [address], [facility] [phone] * Hepatitis C antibody (10/24/2020 1:14 PM CDT) [facility] Hepatitis C Antibody Nonreactive Nonreactive 10/25/2020 11:19 AM CDT [facility] Blood STRUCTURE OF RIGHT UPPER LIMB / Unknown Venipuncture / Unknown 10/24/2020 1:14 PM CDT 10/24/2020 1:15 PM CDT Narrative [facility] - 10/25/2020 11:19 AM CDT Assay performance characteristics have not been established for newborns, infants, and children. Nicolasa Sapp MD LAB - BLOOD ORDER [facility] Specialty Core Lab [address] [facility], [address] [address], [facility] [phone] * Pap imaged thin layer screen only - recommended age 21 - 24 years (01/27/2019 9:50 AM SALES INSPECTOR) PAP TERESA Leos Report Patient Name: JOVANY PARKER MR#: [id number] Specimen #: [id number] Collected: 01/27/2019 Received: 01/28/2019 Reported: 02/02/2019 10:22 [...] adenocarcinomas or other cancers. COLLECTION SITE: Client: ??[facility] Location: [place] (S) The technical component of this testing was completed at the [facility], with the professional component performed at the [facility], [address] [place] [phone] ([phone]) LANG Cytologic material (specimen) 01/27/2019 9:50 AM SALES INSPECTOR 01/28/2019 9:39 AM SALES INSPECTOR Yesi Espinoza Masters DO LAB - OPTIME CL INICAL SPECIMEN COPATH * Chlamydia trachomatis PCR (10/18/2017 4:50 PM CDT) Specimen Description Vagina 10/18/2017 4:59 PM CDT [facility] Chlamydia Trachomatis PCR Negative NEG^Negat rosanne 10/19/2017 11:45 AM CDT [facility] Comment: Negative for C. trachomatis rRNA by employment coordinator mediated amplification. A negative result by employment coordinator mediated amplification does not preclude the presence of C. trachomatis infection because results are dependent on proper and adequate collection, absence of inhibitors, and sufficient rRNA to be detected. Specimen from vagina (specimen) 10/18/2017 4:50 PM CDT 10/18/2017 4:59 PM CDT Bk Saldana MD LAB - MICRO GENER AL ORDERABLES Performing Organization Address City/[facility]/ZIP Co de Phone Number [facility] [address] [place], [place] [id number] [place] [address] [address] [place], [place] [address] [phone] from Last 3 Months or Most Recently Relevant to Health Maintenance Care Teams Director Of Procurement Relationship Specialty Start Date End Date No Ref-Primary, Physician PCP - General 12/11/14
--- OUTSIDE RECORDS SUMMARY | 2023-10-08 14:46 | XMS_ITS | Encounter Summary ---
Author Organization [place] Address [address] [place] [address]. [place] [address] Care Team Providers Care Chimney Builder Name Role Phone No Ref-Primary, Physician Primary Care Provider sInga DO Unavailable [phone] Dottie Lucas MD Unavailable + Elva Ramos APRN [facility] Unavailable [phone] Inga Ibarra DO Unavailable [phone] Nicolasa Sapp MD Unavailable [phone] Reason for Visit * Reason Onset Date Comments Innatal insurance coverage 06/03/2018 quest ioning ins coverage for Innatal testing Encounter Details Date Type Department Care Team (Late st Contact Info) Description 06/03/2018 Telephone [facility] [place] [address] [facility] [address] [place] [address] Le Maya APRN [facility] [address] [facility] [address] [place] [address] Innatal insurance [...] later. Encouraged pt to call [facility] to explain the situation and ask [...] documented as of this encounter Care Teams Chimney Builder Relationship Specialty Start Date End Date No Ref-Primary, Physician PCP - General 02/23/14 sInga DO [address] [place] [address] Assigned OBGYN Provider 01/06/20 Dottie Lucas MD [address] [address] [place], [place] [address] Assigned OBGYN Provider 06/10/20 Elva Clarke APRN CN [address] [facility] [address] [place] [address] Assigned OBGYN Provider 07/01/20 Inga Ibarra DO [address] [place] [address] [place], [place] [address] Assigned OBGYN Provider 06/17/20 Nicolasa Sapp MD [address], [address] [address] Assigned OBGYN Provider 11/11/20 documented as of this encounter
--- OUTSIDE RECORDS SUMMARY | 2023-10-08 14:46 | XMS_ITS ---
Author Organization [facility] Address [address] [place] [address] Care Team Providers Care Extrusion Die Repair Manager Name Role Phone Unavailable Unavailable Unavailable Surgery Details Not on file Complications Check Surgery Details section. Procedure Estimated Blood Loss Check Surgery Details section. Procedure Findings Check Surgery Details section. Procedure Specimens Taken Check Surgery Details section.
--- OUTSIDE RECORDS SUMMARY | 2023-10-08 14:46 | XMS_ITS | Clinical Summary ---
Author Organization [facility] Address [address] [place] [address] Care Team Providers Care Fly Frame Tender Name Role Phone Viola Amaral MD Primary [...] for each transition of care or referral. goTenna Allergies Active Allergy Reactions Criticality Noted Date Comments [place] Cockroach Other, see comments 10/07/19 13 Cat Hair Extract Other, see comments 10/06/2012 Dust Mite Extract Other, see comments 3 Nuts Nausea And Vomiting,Respiratory Distress High 07/21/2013 Other reaction(s): Dizziness Peanut (Diagnostic) Respiratory Distress High 2013 [place] Oil Edema,generalized,Re sp iratory Distress High 05/06/2018 Other reaction(s): Edema Medications No known medications Active Problems No known active problems Immunizations Name Administration Dates Next Due 4vHPV (Gardasil) 06/08/2012,01/20/2012, 2 DTP 05/04/1998,02/20/1998 DTaP 09/11/2003,02/25/1999,07/11/1998 Flu Vac (3+ yrs) 02/26/2007 Fluzone Qiv Multidose Vial 0 .25 (6-35 Mos) 05/06/2017 [id number] 01/18/2008 HepA Adult (19+ yrs) 09/13/2013,12/07/2012 HepB Adult (Engerix-B, 20+ y rs, 3 dose series) 06/01/1998,02/20/1998 HepB Ped/Adol (0-18 yrs) 1997 HepB, Unspecified Formulation 06/01/1998, 998,1997 Hib (PedvaxHIB) 02/25/1999, 9,06/01/1998,1997 IPV (Polio) 09/11/2003, 9,06/01/1998,1997 Influenza (Fluzone 0.25, 6-35 mos) 02/01/2013 Influenza IIV4 (Quadrivalent ) 0.5mL (84243) 12/06/2018,05/06/2018 Influenza Vaccine TIV, Nasal 01/18/2008 MCV4 [...] Comments Blood Pressure 106/67 05/16/2022 10:27 AM CUTTER OPERATOR BRICK Pulse 60 12/01/2011 8:21 PM CDT Temperature 37 ??C (98.6 ??F) 12/01/2011 8:21 PM CDT Respiratory Rate 16 12/01/2011 8:21 PM CDT Oxygen Saturation - - Inhaled Oxygen Concentration - - Weight 79.1 kg (174 lb 6.4 oz) 05/16/2022 10:27 AM CUTTER OPERATOR BRICK Height 157.5 cm (5' 2) 12/01/2011 8:21 PM CDT Body Mass Index - - Plan of Treatment Health Maintenance Due Date Last Done Comments Chlamydia 1997 Hep C Screening (Preventive Services) 1997 HIV Screening (Preventive Services) 2013 Adult Preventive Visit 12/09/2015 COVID-19 Vaccine ( season) 2022 Influenza (#1) 2023 12/06/2018, 04/17, 05/06/2017, Additional history exists Cervical Cancer Screening [...] Comments PAP TEST Routine 05/16/2022 10:52 AM CUTTER OPERATOR BRICK Pap smear for cervical cancer screening from Last 3 Months or Most Recently Relevant to Health Maintenance Results * PAP Test (05/16/2022 10:52 AM CUTTER OPERATOR BRICK) Case Report Pap ? Case: [id number] ? Authorizing Provider: ??Kamala Em, DO ? Collected: ? 05/16/2022 1052 ? Ordering Location: ? [place] [address] ?Received: ?05/16/2022 1230 ? Obstetrics/Gyneco logy ? First Screen: ?Adilene Low ? Specimen: ?Pap Test, Routine, Cervix/Endocervix ? 06/03/2022 2:50 PM CDT [facility] Pap Specimen Adequacy Satisfactory for evaluation, endocervical/bo sformation zone component present. 06/03/2022 2:50 PM CDT [facility] Pap Interpretation (NILM) Negative for intraepithelial lesion or malignancy. 06/03/2022 2:50 PM CDT [facility] Pap Other Findings Fungal organisms morphologically consistent with Marilu spp. 06/03/2022 2:50 PM CDT [facility] Pap Disclaimer The Pap test is a screening test designed to aid in the detection of cervical cancer and its precursor lesions. It is not a diagnostic procedure and should not be used as the sole means of detecting cervical cancer. Both false-positive and false-negative results may occur. 06/03/2022 2:50 PM CDT [facility] Gross Description The specimen is received in SurePath fixative and properly labeled. 1 Pap-stained SurePath slide is prepared. 06/03/2022 2:50 PM CDT [facility] Embedded Images 2:50 PM CDT [facility] Other Specimen Type ENTIRE ENDOCERVIX / Unknown 05/16/2022 10:52 AM CUTTER OPERATOR BRICK 05/16/2022 12:30 PM CUTTER OPERATOR BRICK Comment:LMP: Patient's last menstrual period was 04/23/2022 (approximate). Kamala Em DO LAB PATHOLOGY [facility] [address] from Last 3 Months or Most Recently Relevant to Health Maintenance Care Teams Fly Frame Tender Relationship Specialty Start Date End Date Viola Amaral MD PCP - General Pediatric Medicine 03/29/12
== END 2023-10-08 14:43 | disposition home or self-care (01) ==
PROVIDERS: PCP Family Medicine; Visit Provider Emergency Medicine
DX: K62.5 Hemorrhage of anus and rectum (principal); K52.9 Noninfective gastroenteritis and colitis, unspecified
CPT/HCPCS: 82728; 86140

== ENCOUNTER 2023-10-22 19:01 | Emergency (ER) | payer OTHER, SELFPAY ==
[2023-10-22 19:03] VITALS: BP 144/79; PULSE 67; RESP 18; TEMP 36.6; O2SAT 100; BMI 30.5
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
--- NOTE | 2023-10-22 19:26 | CRLHL7_ITS ---
For Patients: As a result of the Century Cures Act, medical imaging exams and procedure reports are released immediately into your electronic medical record. You may view this report before your referring provider. If you have questions, please contact your health care provider. INDICATION: Abnormal vaginal bleeding. TECHNIQUE: Transabdominal and transvaginal ultrasound examination of the pelvis was performed. Grayscale and color Doppler images were obtained. COMPARISON: None. FINDINGS: Uterus: Measures 7.9 x 4.0 x 5.2 cm. Normal in echotexture. No suspicious masses. Endometrium: 5 mm. No significant endometrial free fluid. Right Ovary: Measures 3.3 x 1.7 x 2.4 cm. No suspicious masses. Normal arterial and venous flow on color Doppler imaging. Left ovary: Measures 2.6 x 1.5 x 2.1 cm. No suspicious masses. Normal arterial and venous flow on color Doppler imaging. Cul-de-sac: No free fluid. IMPRESSION: Unremarkable pelvic ultrasound examination. Dictated by Baltazar Cesar MD @ 10/22/2023 8:38:10 PM (Electronically Signed)
[2023-10-22 19:44] LABS: Appearance Urine Cloudy (Clear); Bilirubin Urine Negative (Negative); Blood Urine 3+ (Negative); Color Urine Amber (Yellow); Glucose Urine Negative (Negative); Ketones Urine Trace (Negative); Leukocyte Esterase Urine 1+ (Negative); Nitrite Urine Negative (Negative); Protein Urine 1+ (Negative); Specific Gravity Urine 1.025 (1.000-1.030)
--- OUTSIDE RECORDS SUMMARY | 2023-10-22 19:47 | XMS_ITS | Clinical Summary ---
Author Organization [facility] Address [address] [place] [address] Care Team Providers Care Lead Case Manager Name Role Phone Unavailable Primary Care Provider Unavailabl e Source Comments Patient records contain information from all sites at [facility]. For routine questions regarding patient records, call [phone] during business hours, M-F 8:00 AM - 5:00 PM Central Time. Record requests for emergency care only can be directed to [phone] at any time.[facility] Allergies Active Allergy Reactions Criticality Noted Date [...] Comments Blood Pressure 122/86 03/07/2023 10:33 AM DIGITAL EDITOR Pulse 76 03/07/2023 10:33 AM DIGITAL EDITOR Temperature 36.4 ??C (97.5 ??F) 03/07/2023 10:[address] Respiratory Rate - - Oxygen Saturation 98% 03/07/2023 10:33 AM DIGITAL EDITOR Inhaled Oxygen Concentration - - Weight 78.9 [...]
--- OUTSIDE RECORDS SUMMARY | 2023-10-22 19:47 | XMS_ITS | Referral Summary ---
Author Organization [facility] Address [address] [place] [address] Care Team Providers Care Beef Selector Name Role Phone Unavailable Primary Care Provider Unavailabl e Source Comments Patient records contain information from all sites at [facility]. For routine questions regarding patient records, call [phone] during business hours, M-F 8:00 AM - 5:00 PM Central Time. Record requests for emergency care only can be directed to [phone] at any time.[facility] Allergies Active Allergy Reactions Criticality Noted Date [...] Comments Blood Pressure 122/86 03/07/2023 10:33 AM CHEMICAL MANAGER Pulse 76 03/07/2023 10:33 AM CHEMICAL MANAGER Temperature 36.4 ??C (97.5 ??F) 03/07/2023 10:[address] Respiratory Rate - - Oxygen Saturation 98% 03/07/2023 10:33 AM CHEMICAL MANAGER Inhaled Oxygen Concentration - - Weight 78.9 kg (174 lb) 01/17/2023 9:39 AM CDT Height - - Body Mass Index - - Plan of Treatment Not on file
--- OUTSIDE RECORDS SUMMARY | 2023-10-22 19:47 | XMS_ITS | Clinical Summary ---
Author Organization [facility] Address [address] [place] [address]. [place] [address] Care Team Providers Care International Coordinator Name Role Phone No Ref-Primary, Physician Primary Care Provider Allergies Active Allergy Reactions Criticality Noted Date Comments Cat Hair Extract 10/06/2012 Cockroach 10/06/2012 Dust Mite Extract 10/06/2012 Nuts Nausea and Vomiting,Shortness Of Breath High 10/23/2018 Other reaction(s): Dizziness Peanut (Diagnostic) Shortness Of Breath High 014 [place] Oil Shortness Of Breath High 05/06/2018 Other reaction(s): Edema Medications Medication Sig Dispensed Refills Start Date End Date Status EPINEPHrine (EPIPEN/ADRENACLICK/ OR ANY BX GENERIC EQUIV) 0.3 MG/0.3ML injection 2-pack INJECT 1 PEN UTD FOR ALLERGIC REACTION UTD 3 06/01/2017 Active Prenat w/o H-OL-Zzouqnc-FA-DHA (PNV-DHA) 27-0.6-0.4-300 MG CAPSIndications:Preg dom Take 1 [...] Answer Date Recorded PHQ-2 Score 1 10/16/2020 [place] Depression Scale Answer Date Recorded [place] Depression Score 8 12/17/2018 Last EPDS Self [...] THIN LAYER SCREEN Routine 01/27/2019 9:50 AM UNIX DEVELOPER Screening for cervical cancer Routine follow-up CHLAMYDIA TRACHOMATIS PCR STAT 10/18/2017 4:50 PM CDT Abdominal pain, left lower quadrant from Last 3 Months or Most Recently Relevant to Health Maintenance Results * HIV Antigen Antibody Combo (10/24/2020 1:14 PM CDT) Pathologist [facility] HIV Antigen Antibody Combo Nonreactive Nonreactive 10/25/2020 11:[address] [facility] Comment:HIV-1 p24 Ag & HIV-1 /HIV-2 Ab Not Detected Blood STRUCTURE OF RIGHT UPPER LIMB / Unknown Venipuncture / Unknown 10/24/2020 1:14 PM CDT 10/24/2020 1:15 PM CDT Nicolasa Sapp MD LAB - BLOOD ORDER [facility] Specialty Core Lab [address] [facility], [address] [address], [facility] [phone] * Hepatitis C antibody (10/24/2020 1:14 PM CDT) [facility] Hepatitis C Antibody Nonreactive Nonreactive 10/25/2020 11:[address] [facility] Blood STRUCTURE OF RIGHT UPPER LIMB / Unknown Venipuncture / Unknown 10/24/2020 1:14 PM CDT 10/24/2020 1:15 PM CDT Narrative [facility] - 10/25/2020 11:19 AM CDT Assay performance characteristics have not been established for newborns, infants, and children. Nicolasa Sapp MD LAB - BLOOD ORDER [facility] Specialty Core Lab [address] [facility], [address] [address], [facility] [phone] * Pap imaged thin layer screen only - recommended age 21 - 24 years (01/27/2019 9:50 AM UNIX DEVELOPER) Pathologist [facility] PAP NIL COPATH Copath Report Patient Name: JOVANY PARKER MR#: [id number] Specimen #: [id number] Collected: 01/27/2019 Received: 01/28/2019 Reported: 02/02/2019 10:22 [...] adenocarcinomas or other cancers. COLLECTION SITE: Client: ??[facility] Location: [place] (S) The technical component of this testing was completed at the [facility], with the professional component performed at the [facility], [address] [place] [phone] ([phone]) COPATH Cytologic material (specimen) 01/27/2019 9:50 AM UNIX DEVELOPER 01/28/2019 9:39 AM UNIX DEVELOPER Yesi Espinoza Masterrodo DO LAB - OPTIME CL INICAL SPECIMEN COPATH * Chlamydia trachomatis PCR (10/18/2017 4:50 PM CDT) Specimen Description Vagina 10/18/2017 4:59 PM CDT [facility] Chlamydia Trachomatis PCR Negative NEG^Negat rosanne 10/19/2017 11:45 AM CDT [facility] Comment: Negative for C. trachomatis rRNA by manager actuarial mediated amplification. A negative result by manager actuarial mediated amplification does not preclude the presence of C. trachomatis infection because results are dependent on proper and adequate collection, absence of inhibitors, and sufficient rRNA to be detected. Specimen from vagina (specimen) 10/18/2017 4:50 PM CDT 10/18/2017 4:59 PM CDT Bk Saldana MD LAB - MICRO GENER AL ORDERABLES [facility] [address] [place] [address], [facility] [address] [place], [place] [address] [phone] from Last 3 Months or Most Recently Relevant to Health Maintenance Care Teams International Coordinator Relationship Specialty Start Date End Date No Ref-Primary, Physician PCP - General 02/23/14
--- OUTSIDE RECORDS SUMMARY | 2023-10-22 19:47 | XMS_ITS ---
Author Organization [facility] Address [address] [place] [address] Care Team Providers Care Development Technical Lead Name Role Phone Unavailable Unavailable Unavailable Surgery Details Not on file Complications Check Surgery Details section. Procedure Estimated Blood Loss Check Surgery Details section. Procedure Findings Check Surgery Details section. Procedure Specimens Taken Check Surgery Details section.
--- OUTSIDE RECORDS SUMMARY | 2023-10-22 19:47 | XMS_ITS | Clinical Summary ---
Author Organization [facility] Address [address] [place] [address] Care Team Providers Care Public Health Staff Nurse Name Role Phone Viola Amaral MD Primary [...] for each transition of care or referral. [place] Allergies Active Allergy Reactions Criticality Noted Date Comments Citizen Of [place] Cockroach Other, see comments 10/07/19 13 Cat Hair Extract Other, see comments 10/06/2012 Dust Mite Extract Other, see comments 3 Nuts Nausea And Vomiting,Respiratory Distress High 07/21/2013 Other reaction(s): Dizziness Peanut (Diagnostic) Respiratory Distress High 2013 [place] Oil Edema,generalized,Re sp iratory Distress High 05/06/2018 Other reaction(s): Edema Medications No known medications Active Problems No known active problems Immunizations Name Administration Dates Next Due 4vHPV (Gardasil) 06/08/2012,01/20/2012, 2 DTP 05/04/1998,02/20/1998 DTaP 09/11/2003,02/25/1999,07/11/1998 Flu Vac (3+ yrs) 02/26/2007 Fluzone Qiv Multidose Vial 0 .25 (6-35 Mos) 05/06/2017 [id number] 01/18/2008 HepA Adult (19+ yrs) 09/13/2013,12/07/2012 HepB Adult (Engerix-B, 20+ y rs, 3 dose series) 06/01/1998,02/20/1998 HepB Ped/Adol (0-18 yrs) 1997 HepB, Unspecified Formulation 06/01/1998, 998,1997 Hib (PedvaxHIB) 02/25/1999, 9,06/01/1998,1997 IPV (Polio) 09/11/2003, 9,06/01/1998,1997 Influenza (Fluzone 0.25, 6-35 mos) 02/01/2013 Influenza IIV4 (Quadrivalent ) 0.5mL (87381) 12/06/2018,05/06/2018 Influenza Vaccine TIV, Nasal 01/18/2008 MCV4 [...] Comments Blood Pressure 106/67 05/16/2022 10:27 AM ELECTRICIAN DECK Pulse 60 12/01/2011 8:21 PM CDT Temperature 37 ??C (98.6 ??F) 12/01/2011 8:21 PM CDT Respiratory Rate 16 12/01/2011 8:21 PM CDT Oxygen Saturation - - Inhaled Oxygen Concentration - - Weight 79.1 kg (174 lb 6.4 oz) 05/16/2022 10:27 AM ELECTRICIAN DECK Height 157.5 cm (5' 2) 12/01/2011 8:21 [...] Comments PAP TEST Routine 05/16/2022 10:52 AM ELECTRICIAN DECK Pap smear for cervical cancer screening from Last 3 Months or Most Recently Relevant to Health Maintenance Results * PAP Test (05/16/2022 10:52 AM ELECTRICIAN DECK) Case Report Pap ? Case: [id number] ? Authorizing Provider: ??Kamala Em, DO ? Collected: ? 05/16/2022 1052 ? Ordering Location: ? [place] [id number] ?Received: ?05/16/2022 1230 ? Obstetrics/Gyneco logy ? First Screen: ?Adilene Low ? Specimen: ?Pap Test, Routine, Cervix/Endocervix ? 06/03/2022 2:50 PM CDT [facility] Pap Specimen Adequacy Satisfactory for evaluation, endocervical/bo sformation zone component present. 06/03/2022 2:50 PM CDT [facility] Pap Interpretation (NILM) Negative for intraepithelial lesion or malignancy. 06/03/2022 2:50 PM CDT [facility] Pap Other Findings Fungal organisms morphologically consistent with Marilu spp. 06/03/2022 2:50 PM CDT [facility] Pap Disclaimer The Pap test is a screening test designed to aid in the detection of cervical cancer and its precursor lesions. It is not a diagnostic procedure and should not be used as the sole means of detecting cervical cancer. Both false-positive and false-negative results may occur. 06/03/2022 2:50 PM CDT [facility] Gross Description The specimen is received in SurePath fixative and properly labeled. 1 Pap-stained SurePath slide is prepared. 06/03/2022 2:50 PM CDT [facility] Embedded Images 2:50 PM CDT [facility] Other Specimen Type ENTIRE ENDOCERVIX / Unknown 05/16/2022 10:52 AM ELECTRICIAN DECK 05/16/2022 12:30 PM [facility] Comment:LMP: Patient's last menstrual period was 04/23/2022 (approximate). Kamala Em DO LAB PATHOLOGY [facility] [address] from Last 3 Months or Most Recently Relevant to Health Maintenance Care Teams Public Health Staff Nurse Relationship Specialty Start Date End Date Viola Amaral MD PCP - General Pediatric Medicine 03/29/12
--- OUTSIDE RECORDS SUMMARY | 2023-10-22 19:48 | XMS_ITS | Encounter Summary ---
Author Organization [place] Address [address] [place] [address]. [place] [address] Care Team Providers Care Perinatal Breastfeeding Assistant Name Role Phone No Ref-Primary, Physician Primary Care Provider sInga DO Unavailable [phone] Dottie Lucas MD Unavailable + Elva Ramos APRN [facility] Unavailable [phone] Inga Ibarra DO Unavailable [phone] Nicolasa Sapp MD Unavailable [phone] Reason for Visit * Reason Onset Date Comments Innatal insurance coverage 06/03/2018 quest ioning ins coverage for Innatal testing Encounter Details Date Type Department Care Team (Late st Contact Info) Description 06/03/2018 Telephone [facility] [place] [address] [facility] [address] [place] [address] Le Maya APRN [facility] [address] [facility] [address] [place] [address] Innatal insurance [...] later. Encouraged pt to call Carl at [facility] to explain the situation and ask [...] documented as of this encounter Care Teams Perinatal Breastfeeding Assistant Relationship Specialty Start Date End Date No Ref-Primary, Physician PCP - General 02/23/14 sInga DO [address] [place] [address] Assigned OBGYN Provider 01/06/20 Dottie Lucas MD [address] [place] [address] [place], [place] [address] Assigned OBGYN Provider 06/10/20 Elva Clarke APRN CN [address] [facility] 100 [place] [address] Assigned OBGYN Provider 07/01/20 Inga Ibarra DO [address] [place] [address] [place], [place] [address] Assigned OBGYN Provider 06/17/20 Nicolasa Sapp MD [address], [address] [address] Assigned OBGYN Provider 11/11/20 documented as of this encounter
--- OUTSIDE RECORDS SUMMARY | 2023-10-22 19:48 | XMS_ITS | Encounter Summary ---
Author Organization [place] Address [address] [place] [address]. [place] [address] Care Team Providers Care Personal Financial Representative Name Role Phone No Ref-Primary, Physician Primary Care Provider sInga DO Unavailable [phone] Dottie Lucas MD Unavailable + Elva Ramos APRN Unavailable [phone] Inga Ibarra DO Unavailable [phone] Nicolasa Sapp MD Unavailable [phone] Encounter Details Date Type Department Care Team [...] as of this encounter Care Teams Personal Financial Representative Relationship Specialty Start Date End Date No Ref-Primary, Physician PCP - General 02/23/14 Inga Ibarra DO [address] [place] [address] [place], [place] [address] Assigned OBGYN Provider 01/06/20 Dottie Lucas MD [address] [place] [address] [place], [place] [address] Assigned OBGYN Provider 06/10/20 1 Elva Ramos APRN [facility] [address] [place] [address] [place] [address] Assigned OBGYN Provider 07/01/20 Inga Ibarra DO [address] [place] [address] [place] [address] Assigned OBGYN Provider 06/17/20 Nicolasa Sapp MD [address], [address] [place] [address] Assigned OBGYN Provider 11/11/20 documented as of this encounter
--- OUTSIDE RECORDS SUMMARY | 2023-10-22 19:48 | XMS_ITS | Encounter Summary ---
Author Organization [facility] Address [address] [place] [address]. [place] [address] Care Team Providers Care Archery Instructor Name Role Phone No Ref-Primary, Physician Primary Care Provider Elva Ramos APRN CN Unavailable [phone] Nicolasa Sapp MD Unavailable [phone] Encounter Details Date Type Department Care Team (Late st Contact Info) Description 10/02/2020 [facility] Medical Advice [address] [address] Nicole Garcia, CAST IRON DRAIN PIPE LAYER Social History Tobacco Use Types Packs/Day Years Used Date Smoking Tobacco: Never Smokeless Tobacco: Never Alcohol Use Standard Drinks/Week Comments No 0 (1 standard drink = 0.6 oz pur e alcohol) PHQ-2 Answer Date Recorded PHQ-2 Score 0 03/03/2019 [place] Depression Scale Answer Date Recorded [place] Depression Score 8 12/17/2018 Last EPDS Self [...] Total Score: 11 01/27/ 019 9:38 AM PRESCHOOL SPECIAL EDUCATION TEACHER documented as of this encounter Care Teams Archery Instructor Relationship Specialty Start Date End Date No Ref-Primary, Physician PCP - General 02/23/14 Elva Ramos APRN CNM [address] [address] Assigned OBGYN Provider 07/01/20 Nicolasa Sapp MD [address], [address] [address] Assigned OBGYN Provider 11/11/20 documented as of this encounter
--- OUTSIDE RECORDS SUMMARY | 2023-10-22 19:48 | XMS_ITS | Encounter Summary ---
Author Organization [place] Address [address] [place] [address]. [place] [address] Care Team Providers Care Recruiting Team Lead Name Role Phone No Ref-Primary, Physician Primary Care Provider Elva Ramos APRN Unavailable [phone] Nicolasa Sapp MD Unavailable [phone] Encounter Details Date Type Department Care Team (Late st Contact Info) Description 11/05/2020 [facility] [place] [address] [place] [address] Nicolasa Sapp MD [address], [address] [place] [address] Social History Tobacco Use Types Packs/Day Years Used Date Smoking Tobacco: Never Smokeless Tobacco: Never Alcohol Use Standard Drinks/Week Comments No 0 (1 standard drink = 0.6 oz pur e alcohol) PHQ-2 Answer Date Recorded PHQ-2 Score 1 10/16/2020 Ary Depression Scale Answer Date Recorded Ary Depression Score 8 12/17/2018 Last EPDS Self [...] Total Score: 11 01/27/ 019 9:38 AM VEGETABLE TESTER documented as of this encounter Care Teams Recruiting Team Lead Relationship Specialty Start Date End Date No Ref-Primary, Physician PCP - General 02/23/14 Elva Ramos APRN CNM [address] [address] Assigned OBGYN Provider 07/01/20 Nicolasa Sapp MD [address] [address] Assigned OBGYN Provider 11/11/20 documented as of this encounter
--- OUTSIDE RECORDS SUMMARY | 2023-10-22 19:48 | XMS_ITS | Encounter Summary ---
Author Organization [facility] Address [address] [place] [address]. [place] [address] Care Team Providers Care Director Council On Aging Name Role Phone No Ref-Primary, Physician Primary Care Provider Elva Ramos APRN CN Unavailable [phone] Nicolasa Sapp MD Unavailable [phone] Encounter Details Date Type Department Care Team (Late st Contact Info) Description 10/01/2020 [facility] Medical Advice [address] [address] Nicole Garcia, FIOS LINE INSTALLER Social History Tobacco Use Types Packs/Day Years Used Date Smoking Tobacco: Never Smokeless Tobacco: Never Alcohol Use Standard Drinks/Week Comments No 0 (1 standard drink = 0.6 oz pur e alcohol) PHQ-2 Answer Date Recorded PHQ-2 Score 0 03/03/2019 Rudolph Depression Scale Answer Date Recorded Rudolph Depression Score 8 12/17/2018 Last EPDS Self [...] Total Score: 11 01/27/ 019 9:38 AM TECHNICAL ADJUSTER documented as of this encounter Care Teams Director Council On Aging Relationship Specialty Start Date End Date No Ref-Primary, Physician PCP - General 02/23/14 Elva Ramos APRN CNM [address] [address] Assigned OBGYN Provider 07/01/20 Nicolasa Sapp MD [address], [address] [address] Assigned OBGYN Provider 11/11/20 documented as of this encounter
--- OUTSIDE RECORDS SUMMARY | 2023-10-22 19:48 | XMS_ITS | Encounter Summary ---
Author Organization [facility] Address [address] [place] [address] Care Team Providers Care Camp Nurse Name Role Phone No Ref-Primary, Physician Primary Care Provider sInga DO Unavailable [phone] Dottie Lucas MD Unavailable + Elva Ramos APRN Unavailable [phone] Inga Ibarra DO Unavailable [phone] Nicolasa Sapp MD Unavailable [phone] Encounter Details Date Type Department Care Team [...] documented as of this encounter Care Teams Camp Nurse Relationship Specialty Start Date End Date No Ref-Primary, Physician PCP - General 02/23/14 Inga Ibarra DO [address] [place] [address] [place] [address] Assigned OBGYN Provider 01/06/20 Dottie Lucas MD [address] [place] [address] [place], [place] [address] Assigned OBGYN Provider 06/10/20 Elva Clarke APRN [facility] [address] [facility] [address] [place] [address] Assigned OBGYN Provider 07/01/20 Inga Ibarra DO [address] [facility] [address] [place] [address] Assigned OBGYN Provider 06/17/20 Nicolasa Sapp MD [address], [facility] 100 [place] [address] Assigned OBGYN Provider 11/11/20 documented as of this encounter
--- OUTSIDE RECORDS SUMMARY | 2023-10-22 19:48 | XMS_ITS | Referral Summary ---
Author Organization [facility] Address [address] [place] [address]. [place] [address] Care Team Providers Care Licensed Social Worker Name Role Phone No Ref-Primary, Physician Primary Care Provider Allergies Active Allergy Reactions Criticality Noted Date Comments Cat Hair Extract 10/06/2012 Cockroach 10/06/2012 Dust Mite Extract 10/06/2012 Nuts Nausea and Vomiting,Shortness Of Breath High 10/23/2018 Other reaction(s): Dizziness Peanut (Diagnostic) Shortness Of Breath High 014 [place] Oil Shortness Of Breath High 05/06/2018 Other reaction(s): Edema Medications Medication Sig Dispensed Refills Start Date End Date Status EPINEPHrine (EPIPEN/ADRENACLICK/ OR ANY BX GENERIC EQUIV) 0.3 MG/0.3ML injection 2-pack INJECT 1 PEN UTD FOR ALLERGIC REACTION UTD 3 06/01/2017 Active Prenat w/o E-OG-Qvqjdzx-FA-DHA (PNV-DHA) 27-0.6-0.4-300 MG CAPSIndications:Preg dom Take 1 [...] Answer Date Recorded PHQ-2 Score 1 10/16/2020 [place] Depression Scale Answer Date Recorded [place] Depression Score 8 12/17/2018 Last EPDS Self [...] THIN LAYER SCREEN Routine 01/27/2019 9:50 AM RAW STOCK DRIER TENDER Screening for cervical cancer Routine follow-up CHLAMYDIA TRACHOMATIS PCR STAT 10/18/2017 4:50 PM CDT Abdominal pain, left lower quadrant from Last 3 Months or Most Recently Relevant to Health Maintenance Results * HIV Antigen Antibody Combo (10/24/2020 1:14 PM CDT) Pathologist [facility] HIV Antigen Antibody Combo Nonreactive Nonreactive 10/25/2020 11:19 AM CDT [facility] Comment:HIV-1 p24 Ag & HIV-1 /HIV-2 Ab Not Detected Blood STRUCTURE OF RIGHT UPPER LIMB / Unknown Venipuncture / Unknown 10/24/2020 1:14 PM CDT 10/24/2020 1:15 PM CDT Nicolasa Sapp MD LAB - BLOOD ORDER [facility] Specialty Core Lab [address] [facility], Room [address] [address], [facility] [phone] * Hepatitis C antibody (10/24/2020 1:14 PM CDT) [facility] Hepatitis C Antibody Nonreactive Nonreactive 10/25/2020 11:19 AM CDT [facility] Blood STRUCTURE OF RIGHT UPPER LIMB / Unknown Venipuncture / Unknown 10/24/2020 1:14 PM CDT 10/24/2020 1:15 PM CDT Narrative [facility] - 10/25/2020 11:19 AM CDT Assay performance characteristics have not been established for newborns, infants, and children. Nicolasa Sapp MD LAB - BLOOD ORDER [facility] Specialty Core Lab [address] [facility], [address] [address], [facility] [phone] * Pap imaged thin layer screen only - recommended age 21 - 24 years (01/27/2019 9:50 AM RAW STOCK DRIER TENDER) PAP TERESA Leos Report Patient Name: JOVANY PARKER MR#: [id number] Specimen #: [id number] Collected: 01/27/2019 Received: 01/28/2019 Reported: 02/02/2019 10:22 [...] adenocarcinomas or other cancers. COLLECTION SITE: Client: ??[facility] Location: PRICILA (S) The technical component of this testing was completed at the [facility], with the professional component performed at the [facility], [address] [place] [phone] ([phone]) LANG Cytologic material (specimen) 01/27/2019 9:50 AM RAW STOCK DRIER TENDER 01/28/2019 9:39 AM RAW STOCK DRIER TENDER Yesi Espinoza Masters DO LAB - OPTIME CL INICAL SPECIMEN COPATH * Chlamydia trachomatis PCR (10/18/2017 4:50 PM CDT) Specimen Description Vagina 10/18/2017 4:59 PM CDT [facility] Chlamydia Trachomatis PCR Negative NEG^Negat rosanne 10/19/2017 11:45 AM CDT [facility] Comment: Negative for C. trachomatis rRNA by weaver needle loom mediated amplification. A negative result by weaver needle loom mediated amplification does not preclude the presence of C. trachomatis infection because results are dependent on proper and adequate collection, absence of inhibitors, and sufficient rRNA to be detected. Specimen from vagina (specimen) 10/18/2017 4:50 PM CDT 10/18/2017 4:59 PM CDT Bk Saldana MD LAB - MICRO GENER AL ORDERABLES Performing Organization Address City/[facility]/ZIP Co de Phone Number [facility] [address] [place], [place] [id number] [place] [address] Aleah Rocha [place], [place] [address] [phone] from Last 3 Months or Most Recently Relevant to Health Maintenance Care Teams Licensed Social Worker Relationship Specialty Start Date End Date No Ref-Primary, Physician PCP - General 12/11/14
--- OUTSIDE RECORDS SUMMARY | 2023-10-22 19:48 | XMS_ITS | Encounter Summary ---
Author Organization [facility] Address [address] [place] [address]. [place] [address] Care Team Providers Care Spinner Fixer Name Role Phone No Ref-Primary, Physician Primary Care Provider Inga Ibarra DO Unavailable [phone] Dottie Lucas MD Unavailable + Elva Ramos APRN Unavailable [phone] Inga Ibarra DO Unavailable [phone] Nicolasa Sapp MD Unavailable [phone] Encounter Details Date Type Department Care Team (Late st Contact Info) Description 07/09/2018 [facility] Medical Advice [facility] [address] [id number] Marayna Crawford, RN Social History Tobacco Use Types [...] documented as of this encounter Care Teams Spinner Fixer Relationship Specialty Start Date End Date No Ref-Primary, Physician PCP - General 02/23/14 Inga Ibarra, [address] [place], [place] [address] Assigned OBGYN Provider 01/06/20 Dottie Lucas MD [address] [place] [address] [place] [address] Assigned OBGYN Provider 06/10/20 1 Elva Ramos APRN [facility] [address] [address] [place], [place] [address] Assigned OBGYN Provider 07/01/20 Inga Ibarra, [address] [place] [address] [place] [address] Assigned OBGYN Provider 06/17/20 Nicolasa Sapp MD [address] [place] [address] Assigned OBGYN Provider 11/11/20 documented as of this encounter
--- OUTSIDE RECORDS SUMMARY | 2023-10-22 19:48 | XMS_ITS | Encounter Summary ---
Author Organization [place] Address [address] [place] [address]. [place] [address] Care Team Providers Care Sausage Inspector Name Role Phone No Ref-Primary, Physician Primary Care Provider Elva Ramos APRN Unavailable [phone] Nicolasa Sapp MD Unavailable [phone] Encounter Details Date Type Department Care Team (Late st Contact Info) Description 10/16/2020 My[facility] Medical Advice [facility] [address] [facility] [address] [place] [address] Nancy Howell, RN Social History Tobacco Use Types Packs/Day Years Used Date Smoking Tobacco: Never Smokeless Tobacco: Never Alcohol Use Standard Drinks/Week Comments No 0 (1 standard drink = 0.6 oz pur e alcohol) PHQ-2 Answer Date Recorded PHQ-2 Score 1 10/16/2020 [place] Depression Scale Answer Date Recorded [place] Depression Score 8 12/17/2018 Last EPDS Self [...] Total Score: 11 01/27/2 019 9:38 AM RE RECORDING MIXER documented as of this encounter Care Teams Sausage Inspector Relationship Specialty Start Date End Date No Ref-Primary, Physician PCP - General 02/23/14 Elva Ramos APRN CNM [address] [facility] 100 [place] [address] Assigned OBGYN Provider 07/01/20 Nicolasa Sapp MD [address], [facility] 100 [place], [place] [address] Assigned OBGYN Provider 11/11/20 documented as of this encounter
[2023-10-22 19:51] LABS: Bacteria Urine Few; RBC Urine >100 (0-2); Squamous Epithelial Cell Urine Few (None-Few); Ur HCG Qualitative* Negative (Negative)
[2023-10-22 19:55] LABS: Basophils Absolute Auto 0.04 K/uL (0.00-0.30); Basophils Percent Auto 0.5 % (0.0-3.0); Eosinophils Absolute Auto 0.26 K/uL (0.00-0.50); Hemoglobin* 11.5 gm/dL (12.0-16.0); Immature Granulocytes Abs Auto 0.01 K/uL (0.00-0.30); Immature Granulocytes Pct Auto 0.1 %; Lymphocytes Absolute Auto 2.46 K/uL (0.90-2.90); Lymphocytes Percent Auto 27.9 % (20-44); Mean Corpuscular HGB Conc 32 gm/dL (32-36); Mean Corpuscular Hemoglobin 28 pg (26-34); Mean Corpuscular Volume 88 fL (80-100); Monocytes Percent Auto 6.7 % (0.0-11.0); Neutrophils Absolute Auto 5.45 K/uL (1.7-7.0); Neutrophils Percent Auto 61.8 % (42.0-72.0); Platelet Count* 232 K/uL (140-440); RDW Coefficient of Variation % 12.9 % (11.5-15.5); White Blood Count* 8.81 K/uL (4.50-11.00)
[2023-10-22 19:58] LABS: Slide Review Reflex No
[2023-10-22 20:11] LABS: Chloride* 104 mmol/L (96-114); Potassium* 3.8 mmol/L (3.6-5.1); Sodium* 139 mmol/L (135-149)
[2023-10-22 20:14] LABS: Anion Gap 6 mEq/L (7-15); Blood Urea Nitrogen* 22 mg/dL (5-24); Calcium* 9.3 mg/dL (8.4-10.6); Carbon Dioxide* 29 mmol/L (20-32); Creatinine* 0.7 mg/dL (0.5-1.5); Est. Creatinine Clearance* 97.17; Estimated Glomerular Filt Rate 123 ml/min; Glucose* 99 mg/dL (60-115); INR 0.95 (0.91-1.10); Prothrombin Time 13.2 Seconds
[2023-10-22 20:15] LABS: Partial Thromboplastin Time* 31 Seconds (23-33)
== END 2023-10-22 21:25 | disposition home or self-care (01) ==
PROVIDERS: Emergency Provider Family Medicine
DX: N30.01 Acute cystitis with hematuria (principal)
CPT/HCPCS: 36415; 76830; 76856; 80048; 81001; 81025; 84443; 85025; 85610; 85730; 87086; 87186; 93976; 99284

== ENCOUNTER 2023-11-03 08:03 | Outpatient (CLI) | payer OTHER, SELFPAY ==
--- OUTSIDE RECORDS SUMMARY | 2023-11-03 08:05 | XMS_ITS | Clinical Summary ---
Author Organization [facility] Address [address] [place] [address] Care Team Providers Care Director Zone Name Role Phone [facility]- Primary Care Provider Elias Kendrick MD Unavailable [phone] Alis Burgess PA-C Unavailable [phone] Allergies Active Allergy Reactions Criticality Noted Date Comments Cat Hair Extract 10/06/2012 Cockroach 10/06/2012 Dust Mite Extract 10/06/2012 Nuts Nausea and Vomiting,Shortness Of Breath High 10/23/2018 Other reaction(s): Dizziness Peanut (Diagnostic) Shortness Of Breath High 014 [place] Oil Shortness Of Breath High 05/06/2018 Other reaction(s): Edema Medications Medication Sig Dispensed Refills Start Date End Date Status EPINEPHrine (EPIPEN/ADRENACLICK/ OR ANY BX GENERIC EQUIV) 0.3 MG/0.3ML injection 2-pack INJECT 1 PEN UTD FOR ALLERGIC REACTION UTD 3 06/01/2017 Active Prenat w/o T-RL-Ztcucpy-FA-DHA (PNV-DHA) 27-0.6-0.4-300 MG CAPSIndications:Preg dom Take 1 [...] Created by Conversion Anxiety and depression 05/06/2018 Encounters Date Type Department Care Team Description 11/01/2023 4:30 PM CDT - 11/01/2023 10:07 PM CDT Emergency [facility] Emergency Dept [address] [place] [phone] Alis Burgess, BULMARO Abdominal pain; Vaginal bleeding; Lightheadedness; Transient disorientation Discharge Disposition: Home or Self Care 11/01/2023 Travel from Last 3 Months Immunizations Name Administration Dates Next Due HPV [...] Answer Date Recorded PHQ-2 Score 1 10/16/2020 [place] Depression Scale Answer Date Recorded [place] Depression Score 8 12/17/2018 Last EPDS Self [...] Reading Time Taken Comments Blood Pressure 106/60 11/01/2023 8:24 PM CDT Pulse 68 11/01/2023 8:24 PM CDT Temperature 36.6 ??C (97.8 ??F) 11/01/2023 4:29 PM CD T Respiratory Rate 18 11/01/2023 4:29 PM CDT Oxygen Saturation 100% 11/01/2023 8:24 PM CDT Inhaled Oxygen Concentration - - Weight 76.7 kg (169 lb 1.8 oz) 11/01/2023 4:29 P M CDT Height 157.5 cm (5' 2) 11/02/2020 9:06 AM CDT Body Mass Index 30.93 11/02/2020 9:06 AM CDT Plan of Treatment Upcoming Encounters Date Type Department Care Team (Late st Contact Info) Description 11/10/2023 11:00 AM CDT Office Visit [facility] [place] [address] [place] [address] [address] [place] [address] Alis Burgess, PA-C [facility] [address] [facility] [address] [place] [address] Elias Kendrick MD [address] [facility] [address] [place] [address] Health Maintenance Due Date Last Done Comments ADVANCE CARE PLANNING 1997 ANNUAL REVIEW OF HM ORDERS 1997 DEPRESSION ACTION PLAN 1997 YEARLY PREVENTIVE VISIT 08/20/2017 08/21/19 17, 08/20/2016, 06/06/2015, Additional history exists PHQ-9 07/28/2019 01/27/2019, 12/30/2018 COVID-19 Vaccine ( season) 2022 INFLUENZA VACCINE (#1) 2023 3, 12/06/2018, 05/06/2018, Additional history exists PAP 05/16/2025 05/16/2022, 01/27/2019 DTAP/TDAP/TD IMMUNIZATION (9 - Td or Tdap) 07/27/2031 07/26/2021, 10/11/2018, 10/09/2010, Additional history exists HEPATITIS B IMMUNIZATION Completed 999, 02/20/1998, 1997 HPV IMMUNIZATION Completed 06/08/2012, 08/2011, 11/13/2011 MENINGITIS IMMUNIZATION Aged Out 12/07/2012 No l onger eligible based on patient's age to complete this topic HEPATITIS C SCREENING Completed 10/24/2020 , 06/19/2017, 02/19/2016 HIV SCREENING Completed 10/24/2020, 05/15, 06/19/2017, Additional history exists CHLAMYDIA SCREENING Discontinued 11/01/2023, 05/06/2018, 10/18/2017, Additional history exists IPV IMMUNIZATION Aged Out [...] Procedure Name Priority Date/Time Associated Diagnosis Comments NEISSERIA GONORRHOEAE PCR STAT 11/01/2023 9:19 PM CDT WET PREPARATION STAT 11/01/2023 9:19 PM CDT ROUTINE UA WITH MICROSCOPIC REFLEX TO CULTURE STAT 11/01/2023 7:25 PM CDT US PELVIS COMPLETE W TRANSVAGINAL AND DOPPLER LIMITED STAT 11/01/2023 6:45 PM CDT CBC WITH PLATELETS & DIFFERENTIAL STAT 11/01/2023 5:53 PM CDT EXTRA BLOOD BANK PURPLE TOP TUBE STAT 11/01/2023 5:53 PM CDT EXTRA BLUE TOP TUBE STAT 11/01/2023 5 :53 PM CDT CBC WITH PLATELETS AND DIFFERENTIAL STAT 11/01/2023 5:53 PM CDT TSH WITH FREE T4 REFLEX STAT 11/01/2023 5:53 PM CDT MAGNESIUM STAT 11/01/2023 5:53 PM CDT LIPASE STAT 11/01/2023 5:53 PM CDT HCG QUALITATIVE STAT 11/01/2023 5:53 PM CDT EXTRA TUBE STAT 11/01/2023 5:53 PM CDT COMPREHENSIVE METABOLIC PANEL STAT 11/01/2023 5:53 PM CDT EKG 12-LEAD, TRACING ONLY STAT 11/01/2023 5:44 PM CDT HIV ANTIGEN ANTIBODY COMBO Routine 10/24/2020 1:14 PM CDT Encounter for supervision of other normal in first trimester HEPATITIS C ANTIBODY Routine 10/24/2020 1:14 PM CDT Encounter for supervision of other normal in first trimester PAP IMAGED THIN LAYER SCREEN Routine 01/27/2019 9:50 AM INDUSTRIAL AUTOMATION SPECIALIST Screening for cervical cancer Routine follow-up from Last 3 Months or Most Recently Relevant to Health Maintenance Results * (ABNORMAL) Wet prep (11/01/2023 9:19 PM CDT) Trichomonas Absent Absent SANDRO 11/01/2023 9:35 PM CDT [facility] Yeast Absent Absent SANDRO 11/01/2023 9:35 PM CDT [facility] Clue Cells Absent Absent SANDRO 11/01/2023 9:35 PM CDT [facility] WBCs/high power field 1+(A) None SANDRO 11/01/2023 9:35 PM CDT LABORATORY Swab VAGINAL STRUCTURE / Unknown Non-blood Collection / Unknown 11/01/2023 9:19 PM CDT 11/01/2023 9:23 PM CDT Alis Burgess PA-C LAB - MICRO GEN ERAL ORDERABLES LABORATORY [facility] [address] [facility] Lab (1st floor, no room number) [place] [address], [facility] * Neisseria gonorrhoeae PCR (11/01/2023 9:19 PM CDT) Neisseria gonorrhoeae Negative Negative 11/02/2023 9:44 AM CDT [facility] Comment:Negative for N. gono rrhoeae rRNA by sales audit clerk mediated amplification. A negative result by sales audit clerk mediated amplification does not preclude the presence of C. trachomatis infection because results are dependent on proper and adequate collection, absence of inhibitors and sufficient rRNA to be detected. Swab VAGINAL STRUCTURE / Unknown Non-blood Collection / Unknown 11/01/2023 9:19 PM CDT 11/01/2023 9:23 PM CDT Alis Burgess PA-C LAB - MICRO GEN ERAL ORDERABLES [facility] Inf. Diseases Diag. Lab [address] [facility], [address] [place] [phone] * (ABNORMAL) UA with Microscopic reflex to Culture (11/01/2023 7:25 PM CDT) Color Urine Straw Colorless, Straw, Light Yellow, Yellow 11/01/2023 7:41 PM CDT LABORATORY Appearance Urine Clear Clear 11/01/19 24 7:41 PM CDT [facility] Glucose Urine Negative Negative mg/dL 11/01/2023 7:41 PM CDT [facility] Bilirubin Urine Negative Negative 7:41 PM CDT [facility] Ketones Urine Negative Negative mg/dL 11/01/2023 7:41 PM CDT [facility] Specific [place] Urine 1.015 1.003 - 1.035 11/01/2023 7:41 PM CDT [facility] Blood Urine Negative Negative 11/01/2023 7:41 PM CDT LABORATORY pH Urine 6.5 5.0 - 7.0 11/01/2023 7:41 PM CDT [facility] Protein Albumin Urine Negative Negative mg/dL 11/01/2023 7:41 PM CDT [facility] Urobilinogen Urine Normal Normal, 2.0 mg/dL 11/01/2023 7:41 PM CDT LABORATORY Nitrite Urine Negative Negative 11/01/2023 7:41 PM CDT [facility] Leukocyte Esterase Urine Negative Negative 11/01/2023 7:41 PM CDT [facility] Mucus Urine Present(A) None Seen /LPF 11/01/2023 7:41 PM CDT [facility] RBC Urine <1 <=2 /HPF 11/01/2023 7:41 PM CDT [facility] WBC Urine <1 <=5 /HPF 11/01/2023 7:41 PM CDT [facility] Squamous Epithelials Urine <1 <=1 /HPF 11/01/2023 7:41 PM CDT [facility] Urine URINE SPECIMEN OBTAINED BY CLEAN CATCH PROCEDURE / Unknown Non-blood Collection / Unknown 11/01/2023 7:25 PM CDT 11/01/2023 7:30 PM CDT Narrative [facility] - 11/01/2023 7:41 PM CDT Urine Culture not indicated Alis Burgess PA-C LAB - URINE ORD ERABLES LABORATORY [facility] [address] Lab (1st floor, no room number) [place] [address] * US Pelvis Cmplt w Transvag & Doppler LmtPel Duplex Limited (11/01/2023 6:45 PM CDT) Anatomical Region Laterality Modality Abdomen/Pelvis Ultrasound 11/01/2023 6:45 PM CDT Impressions 11/01/2023 6:53 PM CDT IMPRESSION: ?? 1. ??Negative pelvic ultrasound. Small complex follicle in the right ovary, possibly hemorrhagic, requires no follow-up. Narrative 11/01/2023 6:53 PM CDT EXAM: US PELVIS COMPLETE W TRANSVAGINAL AND DOPPLER LIMITED LOCATION: [facility] DATE: 11/01/2023 INDICATION: Pelvic pain COMPARISON: None. TECHNIQUE: Transabdominal scans were performed. Endovaginal ultrasound was performed to better visualize the adnexa. Color flow with spectral Doppler and waveform analysis performed. FINDINGS: UTERUS: 8.6 x 5.2 x 4.2 cm. Normal in size and position with no masses. ENDOMETRIUM: 15 mm. Normal smooth endometrium. RIGHT OVARY: 3.5 x 2.6 x 2.6 cm. Normal arterial and venous duplex flow identified. Contains a complex 1.7 x 1.5 x 1.8 cm follicle. LEFT OVARY: 2.9 x 2.2 x 1.6 cm. Normal arterial and venous duplex flow identified. No cyst or mass. No significant free fluid. Procedure Note Baldemar Le MD - 11/01/2023 EXAM: US PELVIS COMPLETE W TRANSVAGINAL AND DOPPLER LIMITED LOCATION: [facility] DATE: 11/01/2023 INDICATION: Pelvic pain COMPARISON: None. TECHNIQUE: Transabdominal scans were performed. Endovaginal ultrasound wasperformed to better visualize the adnexa. Color flow with spectral Dopplerand waveform analysis performed. FINDINGS: UTERUS: 8.6 x 5.2 x 4.2 cm. Normal in size and position with no masses. ENDOMETRIUM: 15 mm. Normal smooth endometrium. RIGHT OVARY: 3.5 x 2.6 x 2.6 cm. Normal arterial and venous duplex flowidentified. Contains a complex 1.7 x 1.5 x 1.8 cm follicle. LEFT OVARY: 2.9 x 2.2 x 1.6 cm. Normal arterial and venous duplex flowidentified. No cyst or mass. No significant free fluid. IMPRESSION: 1. Negative pelvic ultrasound. Small complex follicle in the right ovary,possibly hemorrhagic, requires no follow-up. Alis Burgess PA-C IMG US ORDERABL ES * Extra Blood Bank Purple Top Tube (11/01/2023 5:53 PM CDT) Pathologist [facility] Hold Specimen [facility] 11/01/2023 7:16 PM CDT LABORATORY Blood VENOUS LINE / Unknown Venipuncture / Unknown 11/01/2023 5:53 PM CDT 11/01/2023 6:05 PM CDT Alis Burgess PA-C LAB - BLOOD ORD ERABLES LABORATORY [facility] [address] [facility] Lab (1st floor, no room number) [place] [address], [facility] * Extra Blue Top Tube (11/01/2023 5:53 PM CDT) Hold Specimen [facility] 11/01/2023 7:16 PM CDT [facility] Blood VENOUS LINE / Unknown Venipuncture / Unknown 11/01/2023 5:53 PM CDT 11/01/2023 6:05 PM CDT Alis Burgess PA-C LAB - BLOOD ORD ERABLES [facility] [address] [facility] Lab (1st floor, no room number) [place] [address], [facility] * CBC with platelets and differential (11/01/2023 5:53 PM CDT) WBC Count 7.4 4.0 - 11.0 10e3/uL 11/01/2023 6:10 PM CDT [facility] RBC Count 4.23 3.80 - 5.20 10e6/uL 11/01/2023 6:10 PM CDT [facility] Hemoglobin 11.9 11.7 - 15.7 g/dL 11/01/2023 6:10 PM CDT [facility] Hematocrit 36.4 35.0 - 47.0 % 11/01/2023 6:10 PM CDT [facility] MCV 86 78 - 100 fL 11/01/2023 6:10 PM CDT [facility] MCH 28.1 26.5 - 33.0 pg 11/01/2023 6:10 PM CDT [facility] MCHC 32.7 31.5 - 36.5 g/dL 11/01/2023 6:10 PM CDT [facility] RDW 12.7 10.0 - 15.0 % 11/01/2023 6:10 PM CDT [facility] Platelet Count 214 150 - 450 10e3/uL 11/01/2023 6:10 PM CDT [facility] % Neutrophils 55 % 11/01/2023 6:10 PM CDT [facility] % Lymphocytes 35 % 11/01/2023 6:10 PM CDT [facility] % Monocytes 8 % 11/01/2023 6:10 PM CDT [facility] % Eosinophils 2 % 11/01/2023 6:10 PM CDT [facility] % Basophils 0 % 11/01/2023 6:10 PM CDT [facility] % Immature Granulocytes 0 % 11/01/2023 6:10 PM CDT [facility] NRBCs per 100 WBC 0 <1 /100 024 6:10 PM CDT [facility] Absolute Neutrophils 4.0 1.6 - 8.3 10e3/uL 11/01/2023 6:10 PM CDT [facility] Absolute Lymphocytes 2.6 0.8 - 5.3 10e3/uL 11/01/2023 6:10 PM CDT [facility] Absolute Monocytes 0.6 0.0 - 1.3 10e3/uL 11/01/2023 6:10 PM CDT [facility] Absolute Eosinophils 0.1 0.0 - 0.7 10e3/uL 11/01/2023 6:10 PM CDT [facility] Absolute Basophils 0.0 0.0 - 0.2 10e3/uL 11/01/2023 6:10 PM CDT [facility] Absolute Immature Granulocytes 0.0 <=0.4 10e3/uL 11/01/2023 6:10 PM CDT [facility] Absolute NRBCs 0.0 10e3/uL 11/01/2023 6:10 PM CDT [facility] Blood VENOUS LINE / Unknown Venipuncture / Unknown 11/01/2023 5:53 PM CDT 11/01/2023 6:05 PM CDT Alis Burgess PA-C LAB - BLOOD ORD ERABLES [facility] [address] [facility] Lab (1st floor, no room number) [place] [address], [facility] * TSH with free T4 reflex (11/01/2023 5:53 PM CDT) TSH 2.37 0.30 - 4.20 uIU/mL 11/01/2023 6:34 PM CDT [facility] Blood VENOUS LINE / Unknown Venipuncture / Unknown 11/01/2023 5:53 PM CDT 11/01/2023 6:05 PM CDT Alis Burgess PA-C LAB - BLOOD ORD ERABLES LABORATORY [facility] [address] Lab (1st floor, no room number) [address] * Magnesium (11/01/2023 5:53 PM CDT) Magnesium 2.1 1.7 - 2.3 mg/dL 11/01/2023 6:27 PM CDT [facility] Blood VENOUS LINE / Unknown Venipuncture / Unknown 11/01/2023 5:53 PM CDT 11/01/2023 6:05 PM CDT Alis Burgess PA-C LAB - BLOOD ORD ERABLES Performing Organization Address City/[facility] [address]/ZIP Co de Phone Number [facility] Lab [address] Lab (1st floor, no room number) [address] * Lipase (11/01/2023 5:53 PM CDT) Lipase 34 13 - 60 U/L 11/01/2023 6:27 PM CDT LABORATORY Blood VENOUS LINE / Unknown Venipuncture / Unknown 11/01/2023 5:53 PM CDT 11/01/2023 6:05 PM CDT Alis Burgess PA-C LAB - BLOOD ORD ERABLES LABORATORY [facility] [address] Lab (1st floor, no room number) [address] * hCG QUALitative (blood) (11/01/2023 5:53 PM CDT) hCG Serum Qualitative Negative Negative SANDRO 11/01/2023 7:11 PM CDT [facility] Comment:This test is for scr eening purposes. Results should be interpreted along with the clinical picture. Confirmation testing is available if warranted by ordering [id number], HCG Quantitative . Blood VENOUS LINE / Unknown Venipuncture / Unknown 11/01/2023 5:53 PM CDT 11/01/2023 6:05 PM CDT Alis Burgess PA-C LAB - BLOOD ORD ERABLES LABORATORY [facility] [address] [facility] Lab (1st floor, no room number) [place] [address] * Comprehensive metabolic panel (11/01/2023 5:53 PM CDT) Sodium 138 135 - 145 mmol/L 11/01/2023 6:27 PM CDT LABORATORY Potassium 3.8 3.4 - 5.3 mmol/L 11/01/2023 6:27 PM CDT [facility] Carbon Dioxide (CO2) 22 22 - 29 mmol/L 11/01/2023 6:27 PM CDT [facility] Anion Gap 14 7 - 15 mmol/L 11/01/2023 6:27 PM CDT [facility] Urea Nitrogen 18.1 6.0 - 20.0 mg/dL 11/01/2023 6:27 PM CDT [facility] Creatinine 0.83 0.51 - 0.95 mg/dL 11/01/2023 6:27 PM CDT [facility] GFR Estimate >90 >60 mL/min/1.7 3m2 11/01/2023 6:27 PM CDT [facility] Comment:eGFR calculated us2020 CKD-EPI equation. Calcium 8.8 8.8 - 10.4 mg/dL 11/01/2023 6:27 PM CDT [facility] Comment:Reference intervals for this test were updated on 09/29/2023 to reflect our healthy population more accurately. There may be differences in the flagging of prior results with similar values performed with this method. Those prior results can be interpreted in the context of the updated reference intervals. Chloride 102 98 - 107 mmol/L 11/01/2023 6:27 PM CDT [facility] Glucose 86 70 - 99 mg/dL 11/01/2023 6:27 PM CDT [facility] Alkaline Phosphatase 71 40 - 150 U/L 11/01/2023 6:27 PM CDT [facility] AST 21 0 - 45 U/L 11/01/2023 6:27 PM CDT [facility] ALT 20 0 - 50 U/L 11/01/2023 6:27 PM CDT [facility] Protein Total 7.0 6.4 - 8.3 g/dL 11/01/2023 6:27 PM CDT [facility] Albumin 4.4 3.5 - 5.2 g/dL 11/01/2023 6:27 PM CDT [facility] Bilirubin Total 0.3 <=1.2 mg/dL 11/01/2023 6:27 PM CDT [facility] Blood VENOUS LINE / Unknown Venipuncture / Unknown 11/01/2023 5:53 PM CDT 11/01/2023 6:05 PM CDT Alis Burgess PA-C LAB - BLOOD ORD ERABLES [facility] [address] Lab (1st floor, no room number) [place] [address] * EKG 12-lead, tracing only (11/01/2023 5:44 PM CDT) Systolic Blood Pressure mmHg RADIOLOGY RESULTS Diastolic Blood Pressure mmHg RADIOLOGY RESULTS Ventricular Rate 46 BPM RAD IOLOGY RESULTS Atrial Rate 46 BPM RADIOLOG Y RESULTS TX Interval 142 ms RADIOLOG Y RESULTS QRS Duration 88 ms RADIOLO GY RESULTS QT 484 ms RADIOLOGY RESULTS QTc 423 ms RADIOLOGY RESULTS P [place] 27 degrees RADIOLOGY RESULTS R AXIS 69 degrees RADIOLOGY RESULTS T [place] 22 degrees RADIOLOGY RESULTS Interpretation ECG Sinus bradycardia with sinus arrhythmia Otherwise normal ECG When compared with ECG of 09-Oct-2020 17:48, Nonspecific T wave abnormality no longer evident in Anterior leads Confirmed by - EMERGENCY ROOM, PHYSICIAN ([id number]), editor map MONISHA WEAVER (Doug) on 11/02/2023 7:30:44 AM RADIOLOGY RESULTS 11/01/2023 5:44 PM CDT 11/02/2023 7:30 AM CDT Alis Burgess PA-C ECG ORDERABLES RADIOLOGY RESULTS * HIV Antigen Antibody Combo (10/24/2020 1:14 PM CDT) HIV Antigen Antibody Combo Nonreactive Nonreactive 10/25/2020 11:19 AM CDT [facility] Comment:HIV-1 p24 Ag & HIV-1 /HIV-2 Ab Not Detected Blood STRUCTURE OF RIGHT UPPER LIMB / Unknown Venipuncture / Unknown 10/24/2020 1:14 PM CDT 10/24/2020 1:15 PM CDT Nicolasa Sapp MD LAB - BLOOD ORDER SHEY [facility] Lab [address] [facility], Room [address] [address], [facility] [phone] * Hepatitis C antibody (10/24/2020 1:14 PM CDT) Hepatitis C Antibody Nonreactive Nonreactive 10/25/2020 11:19 AM CDT [facility] Blood STRUCTURE OF RIGHT UPPER LIMB / Unknown Venipuncture / Unknown 10/24/2020 1:14 PM CDT 10/24/2020 1:15 PM CDT Narrative [facility] - 10/25/2020 11:19 AM CDT Assay performance characteristics have not been established for newborns, infants, and children. Nicolasa Sapp MD LAB - BLOOD ORDER SHEY [facility] Special[facility] Core Lab [address] [facility], [address] [place] [address], [facility] [phone] * Pap imaged thin layer screen only - recommended age 21 - 24 years (01/27/2019 9:50 AM INDUSTRIAL AUTOMATION SPECIALIST) PAP NIL COPATH Copath Report Patient Name: JVOANY DELAROSA MR#: [id number] Specimen #: [id number] Collected: 01/27/2019 Received: 01/28/2019 Reported: 02/02/2019 10:22 [...] adenocarcinomas or other cancers. COLLECTION SITE: Client: ??[facility] Location: [facility] (S) The technical component of this testing was completed at the General acute hospital, with the professional component performed at the General acute hospital, [address] [place] [phone] ([phone]) COPATH Cytologic material (specimen) 01/27/2019 9:50 AM INDUSTRIAL AUTOMATION SPECIALIST 01/28/2019 9:39 AM INDUSTRIAL AUTOMATION SPECIALIST Yesi Espinoza Masters DO LAB - OPTIME CL INICAL SPECIMEN COPATH from Last 3 Months or Most Recently Relevant to Health Maintenance Care Teams Director Zone Relationship Specialty Start Date End Date [facility] [address] [place] [address] PCP - General 11/01/23 Elias Kendrick MD [address] [place] [address] Neurology 11/02/23 Alis Burgess, PAAndersC [facility] [address] [place] [address] Physician Belt Picker Emergency Medicine 11/02/23
--- OUTSIDE RECORDS SUMMARY | 2023-11-03 08:05 | XMS_ITS ---
Author Organization [facility] Address [address] [place] [address] Care Team Providers Care Routing Clerk Name Role Phone Unavailable Unavailable Unavailable Surgery Details Not on file Complications Check Surgery Details section. Procedure Estimated Blood Loss Check Surgery Details section. Procedure Findings Check Surgery Details section. Procedure Specimens Taken Check Surgery Details section.
--- OUTSIDE RECORDS SUMMARY | 2023-11-03 08:05 | XMS_ITS | Referral Summary ---
Author Organization [facility] Address [address] [place] [address] Care Team Providers Care Home Care Rn Name Role Phone Unavailable Primary Care Provider Unavailabl e Source Comments Patient records contain information from all sites at [facility]. For routine questions regarding patient records, call [phone] during business hours, M-F 8:00 AM - 5:00 PM Central Time. Record requests for emergency care only can be directed to [phone] at any time.[facility] Allergies Active Allergy Reactions Criticality Noted [...] Comments Blood Pressure 122/86 03/07/2023 10:33 AM ENGINEERING PRODUCTION WORKER Pulse 76 03/07/2023 10:33 AM ENGINEERING PRODUCTION WORKER Temperature 36.4 ??C (97.5 ??F) 03/07/2023 10:[address] Respiratory Rate - - Oxygen Saturation 98% 03/07/2023 10:33 AM ENGINEERING PRODUCTION WORKER Inhaled Oxygen Concentration - - Weight 78.9 kg (174 lb) 01/17/2023 9:39 AM CDT Height - - Body Mass Index - - Plan of Treatment Not on file
--- OUTSIDE RECORDS SUMMARY | 2023-11-03 08:05 | XMS_ITS | Clinical Summary ---
[facility] Organization [facility] Address [address] [place] [address] Care Team Providers Care Financial Analyst Accountant Name Role Phone Viola Amaral MD Primary [...] for each transition of care or referral. [place] Allergies Active Allergy Reactions Criticality Noted Date Comments [place] Cockroach Other, see comments 10/07/19 13 Cat Hair Extract Other, see comments 10/06/2012 Dust Mite Extract Other, see comments 3 Nuts Nausea And Vomiting,Respiratory Distress High 07/21/2013 Other reaction(s): Dizziness Peanut (Diagnostic) Respiratory Distress High 2013 [place] Oil Edema,generalized,Re sp iratory Distress High 05/06/2018 Other reaction(s): Edema Medications No known medications Active Problems No known active problems Immunizations Name Administration Dates Next Due 4vHPV (Gardasil) 06/08/2012,01/20/2012, 2 DTP 05/04/1998,02/20/1998 DTaP 09/11/2003,02/25/1999,07/11/1998 Flu Vac (3+ yrs) 02/26/2007 Fluzone Qiv Multidose Vial 0 .25 (6-35 Mos) 05/06/2017 [id number] 01/18/2008 HepA Adult (19+ yrs) 09/13/2013,12/07/2012 HepB Adult (Engerix-B, 20+ y rs, 3 dose series) 06/01/1998,02/20/1998 HepB Ped/Adol (0-18 yrs) 1997 HepB, Unspecified Formulation 06/01/1998, 998,1997 Hib (PedvaxHIB) 02/25/1999, 9,06/01/1998,1997 IPV (Polio) 09/11/2003, 9,06/01/1998,1997 Influenza (Fluzone 0.25, 6-35 mos) 02/01/2013 Influenza IIV4 (Quadrivalent ) 0.5mL (15438) 12/06/2018,05/06/2018 Influenza Vaccine TIV, Nasal 01/18/2008 MCV4 [...] Comments Blood Pressure 106/67 05/16/2022 10:27 AM GEOTHERMAL HVAC TECHNICIAN Pulse 60 12/01/2011 8:21 PM CDT Temperature 37 ??C (98.6 ??F) 12/01/2011 8:21 PM CDT Respiratory Rate 16 12/01/2011 8:21 PM CDT Oxygen Saturation - - Inhaled Oxygen Concentration - - Weight 79.1 kg (174 lb 6.4 oz) 05/16/2022 10:27 AM GEOTHERMAL HVAC TECHNICIAN Height 157.5 cm (5' 2) 12/01/2011 8:21 [...] Comments PAP TEST Routine 05/16/2022 10:52 AM GEOTHERMAL HVAC TECHNICIAN Pap smear for cervical cancer screening from Last 3 Months or Most Recently Relevant to Health Maintenance Results * PAP Test (05/16/2022 10:52 AM GEOTHERMAL HVAC TECHNICIAN) Case Report Pap ? Case: [id number] ? Authorizing Provider: ??Kamala Em, DO ? Collected: ? 05/16/2022 1052 ? Ordering Location: ? [place] [id number] ?Received: ?05/16/2022 1230 ? Obstetrics/Gyneco logy ? First Screen: ?Adilene Low ? Specimen: ?Pap Test, Routine, Cervix/Endocervix ? 06/03/2022 2:50 PM CDT [facility] Pap Specimen Adequacy Satisfactory for evaluation, endocervical/bo sformation zone component present. 06/03/2022 2:50 PM CDT [facility] Pap Interpretation (NILM) Negative for intraepithelial lesion or malignancy. 06/03/2022 2:50 PM CDT [facility] Pap Other Findings Fungal organisms morphologically consistent with [place] spp. 06/03/2022 2:50 PM CDT [facility] Pap Disclaimer The Pap test is a screening test designed to aid in the detection of cervical cancer and its precursor lesions. It is not a diagnostic procedure and should not be used as the sole means of detecting cervical cancer. Both false-positive and false-negative results may occur. 06/03/2022 2:50 PM CDT [facility] Gross Description The specimen is received in SurePath fixative and properly labeled. 1 Pap-stained SurePath slide is prepared. 06/03/2022 2:50 PM CDT [facility] Embedded Images 2:50 PM CDT [facility] Other Specimen Type ENTIRE ENDOCERVIX / Unknown 05/16/2022 10:52 AM GEOTHERMAL HVAC TECHNICIAN 05/16/2022 12:30 PM GEOTHERMAL HVAC TECHNICIAN Comment:LMP: Patient's last menstrual period was 04/23/2022 (approximate). Kamala Em DO LAB PATHOLOGY [facility] [address] from Last 3 Months or Most Recently Relevant to Health Maintenance Care Teams Financial Analyst Accountant Relationship Specialty Start Date End Date Viola Amaral MD PCP - General Pediatric Medicine 03/29/12
--- OUTSIDE RECORDS SUMMARY | 2023-11-03 08:05 | XMS_ITS | Clinical Summary ---
Author Organization [facility] Address [address] [place] [address] Care Team Providers Care Publications Sales Representative Name Role Phone Unavailable Primary Care Provider Unavailabl e Source Comments Patient records contain information from all sites at [facility]. For routine questions regarding patient records, call [phone] during business hours, M-F 8:00 AM - 5:00 PM Central Time. Record requests for emergency care only can be directed to [phone] at any time.[facility] Allergies Active Allergy Reactions Criticality Noted Date [...] Comments Blood Pressure 122/86 03/07/2023 10:33 AM RECORDIST CHIEF Pulse 76 03/07/2023 10:33 AM RECORDIST CHIEF Temperature 36.4 ??C (97.5 ??F) 03/07/2023 10:[address] Respiratory Rate - - Oxygen Saturation 98% 03/07/2023 10:33 AM RECORDIST CHIEF Inhaled Oxygen Concentration - - Weight 78.9 [...]
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
--- OUTSIDE RECORDS SUMMARY | 2023-11-03 08:06 | XMS_ITS | Encounter Summary ---
Author Organization [place] Address [address] [place] [address] Care Team Providers Care Field Operations Technician Name Role Phone No Ref-Primary, Physician Primary Care Provider Inga Ibarra DO Unavailable [phone] Dottie Lucas MD Unavailable + Elva Ramos APRN Unavailable [phone] Inga Ibarra DO Unavailable [phone] Nicolasa Sapp MD Unavailable [phone] [facility]- Primary Care Provider Elias Kendrick MD Unavailable + [phone] Alis Burgess PA-C Unavailable [phone] Encounter Details Date Type Department Care Team [...] as of this encounter Plan of Treatment Upcoming Encounters Date Type Department Care Team (Late st Contact Info) Description 11/10/2023 11:00 AM CDT Office Visit [facility]rology [facility] [place] [address] [place] [phone] Alis Burgess, PA-C [facility] [address] [facility] 100 [place] [address] Elias Kendrick MD [address] [place] [address] documented as of this encounter Visit Diagnoses Not on filedocumented in this encounter Additional Health Concerns Infection Onset Date Last Indicated Resolved Time Rule Out COVID-19 12/17/2019 12/17/2019 12/18/2019 6:16 PM CDT documented as of this encounter Care Teams Field Operations Technician Relationship Specialty Start Date End Date No Ref-Primary, Physician PCP - General 02/23/14 10/31/23 [facility]- [address] [place] [address] PCP - General 11/01/23 Inga Ibarra DO [address] [facility] 100 [place] [address] Assigned OBGYN Provider 01/06/20 Dottie Lucas MD [address] [place] [address] Assigned OBGYN Provider 06/10/20 Elva Clarke APRN CNM [address] [facility] [place] [address] Assigned OBGYN Provider 07/01/20 Inga Ibarra DO [address] [facility] 100 [place] [address] Assigned OBGYN Provider 06/17/20 Nicolasa Sapp MD [address] [facility] 100 [place] [address] Assigned OBGYN Provider 11/11/20 Elias Kendrick MD [address] [facility] 200 [place] [address] Neurology 11/02/23 Alis Burgess, PADuncan [facility] [address] [facility] 100 [place] [address] Physician Bench Molder Emergency Medicine 11/02/23 documented as of this encounter
--- OUTSIDE RECORDS SUMMARY | 2023-11-03 08:06 | XMS_ITS | Encounter Summary ---
Author Organization [place] Address [address] [place] [address] Care Team Providers Care Front End Web Designer Name Role Phone No Ref-Primary, Physician Primary Care Provider Inga Ibarra DO Unavailable [phone] Dottie Lucas MD Unavailable + Elva Ramos APRN [facility] Unavailable [phone] Inga Ibarra DO Unavailable [phone] Nicolasa Sapp MD Unavailable [phone] [facility]- Primary Care Provider Elias Kendrick MD Unavailable + [phone] Alis Burgess PA-C Unavailable [phone] Encounter Details Date Type Department Care Team (Late st Contact Info) Description 07/09/2018 [facility] [address] [address] Maryana Crawford, RN Social History Tobacco Use [...] Description 11/10/2023 11:00 AM CDT Office Visit [facility] Neurology [facility] [address] [place] [address] Alis Burgess, PA-C [facility] [address] [facility] [address] [address] [place] [address] Elias Kendrick MD [address] [place] [address] documented as of this encounter Visit Diagnoses Not on filedocumented in this encounter Additional Health Concerns Infection Onset Date Last Indicated Resolved Time Rule Out COVID-19 12/17/2019 12/17/2019 12/18/2019 6:16 PM CDT documented as of this encounter Care Teams Front End Web Designer Relationship Specialty Start Date End Date No Ref-Primary, Physician PCP - General 02/23/14 10/31/23 [facility]- [address] [place] [address] PCP - General 11/01/23 sInga DO [address] [facility] 100 [place] [address] Assigned OBGYN Provider 01/06/20 Dottie Lucas MD [address] [place] [address] Assigned OBGYN Provider 06/10/20 Elva Clarke APRN CNM [address] [facility] 100 [place] [address] Assigned OBGYN Provider 07/01/20 Inga Ibarra DO [address] [facility] 100 [place] [address] Assigned OBGYN Provider 06/17/20 Nicolasa Sapp MD [address] [facility] 100 [place] [address] Assigned OBGYN Provider 11/11/20 Elias Kendrick MD [address] [place] [address] Neurology 11/02/23 Alis Burgess, BULMARO [facility] [address] [facility] 100 [place] [address] Physician Locker Room Supervisor Emergency Medicine 11/02/23 documented as of this encounter
--- OUTSIDE RECORDS SUMMARY | 2023-11-03 08:06 | XMS_ITS | Encounter Summary ---
Author Organization [place] Address [address] [place] [address] Care Team Providers Care Fisher Pot Name Role Phone No Ref-Primary, Physician Primary Care Provider Elva Ramos APRN CN Unavailable [phone] Nicolasa Sapp MD Unavailable [phone] [facility]- Primary Care Provider Elias Kendrick MD Unavailable + [phone] Alis Burgess PA-C Unavailable [phone] Encounter Details Date Type Department Care Team (Late st Contact Info) Description 10/02/2020 [facility] Medical Advice [address] [address] Nicole Garcia, [facility] Social History Tobacco Use Types Packs/Day Years Used Date Smoking Tobacco: Never Smokeless Tobacco: Never Alcohol Use Standard Drinks/Week Comments No 0 (1 standard drink = 0.6 oz pur e alcohol) PHQ-2 Answer Date Recorded PHQ-2 Score 0 03/03/2019 [place] Depression Scale Answer Date Recorded [place] Depression Score 8 12/17/2018 Last EPDS Self [...] Description 11/10/2023 11:00 AM CDT Office Visit [facility] Neurology Clinic [place] [address] [place] [address] [place] [phone] Alis Burgess, PA-C [facility] [address] [facility] [address] [place] [address] Elias Kendrick MD [address] [place] [address] documented as of this encounter Visit Diagnoses Not on filedocumented in this encounter Additional Health Concerns Assessment Noted Time PHQ-9 Depression Total Score: 11 01/27/ 019 9:38 AM HOSPICE SOCIAL WORKER documented as of this encounter Care Teams Fisher Pot Relationship Specialty Start Date End Date No Ref-Primary, Physician PCP - General 02/23/14 10/31/23 [facility]- [address] [place] [address] PCP - General 11/01/23 Elva Ramos APRN CNM [address] [facility] [facility] 100 [place] [address] Assigned OBGYN Provider 07/01/20 Nicolasa Sapp MD [address] [facility] 100 [place] [address] Assigned OBGYN Provider 11/11/20 Elias Kendrick MD [address] [place] [address] Neurology 11/02/23 Alis Burgess, AFIAC [facility] [address] [place] [address] Physician Sewer Maintenance Supervisor Emergency Medicine 11/02/23 documented as of this encounter
--- OUTSIDE RECORDS SUMMARY | 2023-11-03 08:06 | XMS_ITS | Encounter Summary ---
Author Organization [place] Address [address] [place] [address] Care Team Providers Care Clay Artisan Name Role Phone [facility]- Primary Care Provider Encounter Details Date Type Department Care Team (Latest Contact Info) Description 11/01/2023 Travel Social History Tobacco Use Types Packs/Day Years Used Date Smoking Tobacco: Never Smokeless Tobacco: Never Alcohol Use Standard Drinks/Week Comments No 0 (1 standard drink = 0.6 oz pur e alcohol) PHQ-2 Answer Date Recorded PHQ-2 Score 1 10/16/2020 [place] Depression Scale Answer Date Recorded [place] Depression Score 8 12/17/2018 Last EPDS Self [...] Description 11/10/2023 11:00 AM CDT Office Visit [facility] Neurology Clinic [address] 200 [place] [address] Alis Burgess PA-C [facility] [address] [facility] 100 [place] [address] Elias Kendrick MD [address] [place] [address] documented as of this encounter Visit Diagnoses Not on filedocumented in this encounter Additional Health Concerns Assessment Noted Time PHQ-9 Depression Total Score: 11 019 9:38 AM VIDEO EFFECTS EDITOR documented as of this encounter Care Teams Clay Artisan Relationship Specialty Start Date End Date [facility]- [address] [place] [address] PCP - General 11/01/23 documented as of this encounter
--- OUTSIDE RECORDS SUMMARY | 2023-11-03 08:06 | XMS_ITS | Encounter Summary ---
Author Organization [place] Address [address] [place] [address] Care Team Providers Care Wash Operator Name Role Phone No Ref-Primary, Physician Primary Care Provider Elva Ramos APRN CN Unavailable [phone] Nicolasa Sapp MD Unavailable [phone] [facility]- Primary Care Provider Elias Kendrick MD Unavailable + [phone] Alis Burgess PA-C Unavailable [phone] Encounter Details Date Type Department Care Team (Late st Contact Info) Description 11/05/2020 [facility] [address] [place] [address] Nicolasa Sapp MD [address], [address] [place], [place] [address] Social History Tobacco Use Types Packs/Day Years Used Date Smoking Tobacco: Never Smokeless Tobacco: Never Alcohol Use Standard Drinks/Week Comments No 0 (1 standard drink = 0.6 oz pur e alcohol) PHQ-2 Answer Date Recorded PHQ-2 Score 1 10/16/2020 [place] Depression Scale Answer Date Recorded [place] Depression Score 8 12/17/2018 Last EPDS Self [...] Description 11/10/2023 11:00 AM CDT Office Visit [facility] Neurology Clinic [address] [address] Alis Burgess, AFIAC [facility] [place] [address] [facility] 100 [place] [address] Elias Kendrick MD [address] [place] [address] documented as of this encounter Visit Diagnoses Not on filedocumented in this encounter Additional Health Concerns Assessment Noted Time PHQ-9 Depression Total Score: 11 01/27/ 019 9:38 AM 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 documented as of this encounter Care Teams Wash Operator Relationship Specialty Start Date End Date No Ref-Primary, Physician PCP - General 02/23/14 10/31/23 [facility]- [address] [place] [address] PCP - General 11/01/23 Elva Ramos APRN CNM [address] [facility] 100 [place] [address] Assigned OBGYN Provider 07/01/20 Nicolasa Sapp MD [address] [address] Assigned OBGYN Provider 11/11/20 Elias Kendrick MD [address] [address] Neurology 11/02/23 Alis Burgess, PAAndersC [facility] [address] [address] Physician Middle School French Teacher Emergency Medicine 11/02/23 documented as of this encounter
--- OUTSIDE RECORDS SUMMARY | 2023-11-03 08:06 | XMS_ITS | Encounter Summary ---
Author Organization [place] Address [address] [place] [address] Care Team Providers Care Conductor And Engineer Name Role Phone No Ref-Primary, Physician Primary Care Provider Elva Ramos APRN Unavailable [phone] Nicolasa Sapp MD Unavailable [phone] [facility]- Primary Care Provider Elias Kendrick MD Unavailable + [phone] Alis Burgess PA-C Unavailable [phone] Encounter Details Date Type Department Care Team (Late st Contact Info) Description 10/16/2020 [facility] Medical Advice [facility] [address] [place] [address] [address] [place] [address] Nancy Howell RN Social History Tobacco Use Types Packs/Day Years Used Date Smoking Tobacco: Never Smokeless Tobacco: Never Alcohol Use Standard Drinks/Week Comments No 0 (1 standard drink = 0.6 oz pur e alcohol) PHQ-2 Answer Date Recorded PHQ-2 Score 1 10/16/2020 [place] Depression Scale Answer Date Recorded [place] Depression Score 8 12/17/2018 Last EPDS Self [...] Description 11/10/2023 11:00 AM CDT Office Visit [facility] Neurology Clinic [place] [address] [place] [address] [place] [phone] Alis Burgess PA-C [facility] [address] [facility] 100 [place], [place] [address] Elias Kendrick MD [address] [facility] 200 [place], [place] [address] documented as of this encounter Visit Diagnoses Not on filedocumented in this encounter Additional Health Concerns Assessment Noted Time PHQ-9 Depression Total Score: 11 01/27/ 019 9:38 AM LAMP WIRER documented as of this encounter Care Teams Conductor And Engineer Relationship Specialty Start Date End Date No Ref-Primary, Physician PCP - General 02/23/14 10/31/23 [facility]- [address] [place] [address] PCP - General 11/01/23 Elva Ramos APRN CNM [address] [address] Assigned OBGYN Provider 07/01/20 Nicolasa Sapp MD [address] [address] Assigned OBGYN Provider 11/11/20 Elias Kendrick MD [address] [facility] 200 [place] [address] Neurology 11/02/23 Alis Burgess PA-C [facility] [address] [facility] 100 [place] [address] Physician Physics Tutor Emergency Medicine 11/02/23 documented as of this encounter
--- OUTSIDE RECORDS SUMMARY | 2023-11-03 08:06 | XMS_ITS | Encounter Summary ---
Author Organization [place] Address [address] [place] [address]. [place] [address] Care Team Providers Care Editor & Co Founder Name Role Phone No Ref-Primary, Physician Primary Care Provider Inga Ibarra DO Unavailable [phone] Dottie Lucas MD Unavailable + Elva Ramos APRN CN Unavailable [phone] Inga Ibarra DO Unavailable [phone] Nicolasa Sapp MD Unavailable [phone] [facility]- Primary Care Provider Elias Kendrick MD Unavailable + [phone] Alis Burgess PA-C Unavailable [phone] Reason for Visit * Reason Onset Date Comments Innatal insurance coverage 06/03/2018 quest ioning ins coverage for Innatal testing Encounter Details Date Type Department Care Team (Late st Contact Info) Description 06/03/2018 Telephone [facility] [place] [address] [facility] 100 [place] [address] Le Maya APRN [facility] 86[address] [facility] 100 [place] [address] Innatal insurance coverage (questioning ins coverage [...] later. Encouraged pt to call Carl at [facility] to explain the situation and [...] Description 11/10/2023 11:00 AM CDT Office Visit [facility] Neurology Clinic [address] [phone] Alis Burgess PA-C [facility] [address] [facility] 100 [place] [address] [place] [address] [place] [address] 200 [place] [address] documented as of this encounter Visit Diagnoses Not on filedocumented in this encounter Additional Health Concerns Infection Onset Date Last Indicated Resolved Time Rule Out COVID-19 12/17/2019 12/17/2019 12/18/2019 6:16 PM CDT documented as of this encounter Care Teams Editor & Co Founder Relationship Specialty Start Date End Date No Ref-Primary, Physician PCP - General 02/23/14 10/31/23 [facility]- [address] [place] [address] PCP - General 11/01/23 Inga Ibarra DO [address] [place], [place] [address] Assigned OBGYN Provider 01/06/20 Dottie Lucas MD [address] [facility] 100 [place], [place] [address] Assigned OBGYN Provider 06/10/20 1 Elva Ramos APRN CN [address] [place] [address] Assigned OBGYN Provider 07/01/20 Inga Ibarra DO [address] [facility] 100 [place] [address] Assigned OBGYN Provider 06/17/20 Nicolasa Sapp MD [address], [address] [place] [address] Assigned OBGYN Provider 11/11/20 Elias Kendrick MD [address] [place] [address] Neurology 11/02/23 Alis Burgess, AFIAC [facility] [place] [address] 100 [place] [address] Physician Customs Director Emergency Medicine 11/02/23 documented as of this encounter
--- OUTSIDE RECORDS SUMMARY | 2023-11-03 08:06 | XMS_ITS | Referral Summary ---
Author Organization [facility] Address [address] [place] [address] Care Team Providers Care Paleobotanist Name Role Phone [facility]- Primary Care Provider Elias Kendrick MD Unavailable + [phone] Alis Burgess PA-C Unavailable +[phone] Encounters Date Type Department Care Team Description 11/01/2023 Travel 11/01/2023 4:30 PM CDT - 11/01/2023 10:07 PM CDT Emergency [facility] [address] [place] [phone] Alis Burgess PA-C Abdominal pain; Vaginal bleeding; Lightheadedness; Transient disorientation Discharge Disposition: Home or Self Care from Last 3 Months Allergies Active Allergy Reactions Criticality Noted Date Comments Cat Hair Extract 10/06/2012 Cockroach 10/06/2012 Dust Mite Extract 10/06/2012 Nuts Nausea and Vomiting,Shortness Of Breath High 10/23/2018 Other reaction(s): Dizziness Peanut (Diagnostic) Shortness Of Breath High 014 [place] Oil Shortness Of Breath High 05/06/2018 Other reaction(s): Edema Medications Medication Sig Dispensed Refills Start Date End Date Status EPINEPHrine (EPIPEN/ADRENACLICK/ OR ANY BX GENERIC EQUIV) 0.3 MG/0.3ML injection 2-pack INJECT 1 PEN UTD FOR ALLERGIC REACTION UTD 3 06/01/2017 Active Prenat w/o B-QW-Axgnrko-FA-DHA (PNV-DHA) 27-0.6-0.4-300 MG CAPSIndications:Preg dom Take 1 [...] Answer Date Recorded PHQ-2 Score 1 10/16/2020 Correll Depression Scale Answer Date Recorded Correll Depression Score 8 12/17/2018 Last EPDS Self [...] Description 11/10/2023 11:00 AM CDT Office Visit [facility] [place] [address] [place] [phone] Alis Burgess PA-C [facility] [address] [facility] [address] [place] [address] Elias Kendrick MD [address] [place] [address] Procedures Procedure Name Priority Date/Time Associated Diagnosis [...] THIN LAYER SCREEN Routine 01/27/2019 9:50 AM CLEAN UP PERSON Screening for cervical cancer Routine follow-up from [...] 1+(A) None SANDRO 11/01/2023 9:35 PM CDT [facility] Swab VAGINAL STRUCTURE / Unknown Non-blood Collection / Unknown 11/01/2023 9:19 PM CDT 11/01/2023 9:23 PM CDT Alis Burgess PA-C LAB - MICRO GEN ERAL ORDERABLES [facility] [address] Lab (1st floor, no room number) [place] [address], [facility] * Neisseria gonorrhoeae PCR (11/01/2023 9:19 PM CDT) Neisseria gonorrhoeae Negative Negative 11/02/2023 9:44 AM CDT [facility] Comment:Negative for N. gono rrhoeae rRNA by sod farmer mediated amplification. A negative result by sod farmer mediated amplification does not preclude the presence of C. trachomatis infection because results are dependent on proper and adequate collection, absence of inhibitors and sufficient rRNA to be detected. Swab VAGINAL STRUCTURE / Unknown Non-blood Collection / Unknown 11/01/2023 9:19 PM CDT 11/01/2023 9:23 PM CDT Alis Burgess PA-C LAB - MICRO GEN ERAL ORDERABLES [facility] Inf. Diseases Diag. Lab [address] [facility], [address] [place] [phone] * (ABNORMAL) UA with Microscopic reflex to Culture (11/01/2023 7:25 PM CDT) Color Urine Straw Colorless, Straw, Light Yellow, Yellow 11/01/2023 7:41 PM CDT [facility] Appearance Urine Clear Clear 11/01/19 24 7:41 PM CDT [facility] Glucose Urine Negative Negative mg/dL 11/01/2023 7:41 PM CDT [facility] Bilirubin Urine Negative Negative 7:41 PM CDT [facility] Ketones Urine Negative Negative mg/dL 11/01/2023 7:41 PM CDT [facility] Specific [place] Urine 1.015 1.003 - 1.035 11/01/2023 7:41 PM CDT [facility] Blood Urine Negative Negative 11/01/2023 7:41 PM CDT [facility] pH Urine 6.5 5.0 - 7.0 11/01/2023 7:41 PM CDT [facility] Protein Albumin Urine Negative Negative mg/dL 11/01/2023 7:41 PM CDT [facility] Urobilinogen Urine Normal Normal, 2.0 mg/dL 11/01/2023 7:41 PM CDT [facility] Nitrite Urine Negative Negative 11/01/2023 7:41 [...] Burgess PA-C LAB - URINE ORD ERABLES [facility] [address] Lab (1st floor, no room number) [place] [address], [facility] * US Pelvis Cmplt w [...] COMPLETE W TRANSVAGINAL AND DOPPLER LIMITED LOCATION: [facility] DATE: 11/01/2023 INDICATION: Pelvic pain COMPARISON: None. [...] COMPLETE W TRANSVAGINAL AND DOPPLER LIMITED LOCATION: [facility] DATE: 11/01/2023 INDICATION: Pelvic pain COMPARISON: None. [...] Tube (11/01/2023 5:53 PM CDT) Pathologist [facility] Hold Specimen [facility] 11/01/2023 7:16 PM CDT LABORATORY Blood VENOUS LINE / Unknown Venipuncture / Unknown 11/01/2023 5:53 PM CDT 11/01/2023 6:05 PM CDT Alis Burgess PA-C LAB - BLOOD ORD ERABLES LABORATORY [facility] [address] Lab (1st floor, no room number) [place] [address] * Extra Blue Top Tube (11/01/2023 5:53 PM CDT) Hold Specimen [facility] 11/01/2023 7:16 PM CDT [facility] Blood VENOUS LINE / Unknown Venipuncture / Unknown 11/01/2023 5:53 PM CDT 11/01/2023 6:05 PM CDT Alis Burgess PA-C LAB - BLOOD ORD ERABLES [facility] [address] Lab (1st floor, no room number) [place] [address] * CBC with platelets and differential (11/01/2023 [...] LAB - BLOOD ORD ERABLES [facility] [address] Lab (1st floor, no room number) [place] [address], [facility] * TSH with free T4 reflex (11/01/2023 5:53 PM CDT) TSH 2.37 0.30 - 4.20 uIU/mL 11/01/2023 6:34 PM CDT [facility] Blood VENOUS LINE / Unknown Venipuncture / Unknown 11/01/2023 5:53 PM CDT 11/01/2023 6:05 PM CDT Alis Burgess PA-C LAB - BLOOD ORD ERABLES [facility] [address] Lab (1st floor, no room number) [place] [phone] [place] [address] * Magnesium (11/01/2023 5:53 PM CDT) Magnesium 2.1 1.7 - 2.3 mg/dL 11/01/2023 6:27 PM CDT [facility] Blood VENOUS LINE / Unknown Venipuncture / Unknown 11/01/2023 5:53 PM CDT 11/01/2023 6:05 PM CDT Alis Burgess PA-C LAB - BLOOD ORD ERABLES Performing Organization Address City/[facility]/ZIP Co de Phone Number [facility] Lab [address] Lab (1st floor, no room number) [place] [phone] [place] [address] * Lipase (11/01/2023 5:53 PM CDT) Pathologist [facility] Lipase 34 13 - 60 U/L 11/01/2023 6:27 PM CDT LABORATORY Blood VENOUS LINE / Unknown Venipuncture / Unknown 11/01/2023 5:53 PM CDT 11/01/2023 6:05 PM CDT Alis Burgess PA-C LAB - BLOOD ORD ERABLES [facility] [address] Lab (1st floor, no room number) [address] * hCG QUALitative (blood) (11/01/2023 5:53 PM CDT) hCG Serum Qualitative Negative Negative SANDRO 11/01/2023 7:11 PM CDT [facility] Comment:This test is for scr eening purposes. Results should be interpreted along with the clinical picture. Confirmation testing is available if warranted by ordering [id number], HCG Quantitative . Blood VENOUS LINE / Unknown Venipuncture / Unknown 11/01/2023 5:53 PM CDT 11/01/2023 6:05 PM CDT Alis Burgess PA-C LAB - BLOOD ORD ERABLES LABORATORY [facility] [address] Lab (1st floor, no room number) [place] [address], [facility] * Comprehensive metabolic panel (11/01/2023 [...] PA-C LAB - BLOOD ORD ERABLES LABORATORY [facility] [address] [facility] Lab (1st floor, no room number) [place] [address] * EKG 12-lead, tracing only (11/01/2023 5:44 PM CDT) Systolic Blood Pressure mmHg RADIOLOGY RESULTS Diastolic Blood Pressure mmHg RADIOLOGY RESULTS Ventricular Rate 46 BPM RAD IOLOGY RESULTS Atrial Rate 46 BPM RADIOLOG Y RESULTS UT Interval 142 ms RADIOLOG Y RESULTS QRS Duration 88 ms RADIOLO GY RESULTS QT 484 ms RADIOLOGY RESULTS QTc 423 ms RADIOLOGY RESULTS P [place] 27 degrees RADIOLOGY RESULTS R AXIS 69 degrees RADIOLOGY RESULTS T [place] 22 degrees RADIOLOGY RESULTS Interpretation ECG Sinus [...] Combo Nonreactive Nonreactive 10/25/2020 11:19 AM CDT [facility] Comment:HIV-1 p24 Ag & HIV-1 /HIV-2 Ab Not Detected Blood STRUCTURE OF RIGHT UPPER LIMB / Unknown Venipuncture / Unknown 10/24/2020 1:14 PM CDT 10/24/2020 1:15 PM CDT Nicolasa Sapp MD LAB - BLOOD ORDER [facility] Specialty Core Lab [address] [facility], Room [address] [address], [facility] [phone] * Hepatitis C antibody (10/24/2020 1:14 PM CDT) Hepatitis C Antibody Nonreactive Nonreactive 10/25/2020 11:19 AM CDT [facility] Blood STRUCTURE OF RIGHT UPPER LIMB / Unknown Venipuncture / Unknown 10/24/2020 1:14 PM CDT 10/24/2020 1:15 PM CDT Narrative [facility] - 10/25/2020 11:19 AM CDT Assay performance characteristics have not been established for newborns, infants, and children. Nicolasa Sapp MD LAB - BLOOD ORDER [facility] Specialty Core Lab [address] [facility], [address] [place] [phone], [facility] [phone] * Pap imaged thin layer screen only - recommended age 21 - 24 years (01/27/2019 9:50 AM CLEAN UP PERSON) PAP TERESA Leos Report Patient Name: JOVANY DELAROSA MR#: [id number] Specimen #: [id number] Collected: 01/27/2019 Received: 01/28/2019 Reported: 02/02/2019 10:22 [...] adenocarcinomas or other cancers. COLLECTION SITE: Client: [facility] Location: [facility] (S) The [facility] component of [facility], with the professional component performed at the [facility], [address] [place] [phone] ([phone]) COPATH Cytologic material (specimen) 01/27/2019 9:50 AM CLEAN UP PERSON 01/28/2019 9:39 AM CLEAN UP PERSON Yesi Espinoza Masters DO LAB - OPTIME CL INICAL SPECIMEN COPATH from Last 3 Months or Most Recently Relevant to Health Maintenance Care Teams Paleobotanist Relationship Specialty Start Date End Date [facility]- [address] [place] [address] PCP - General 11/01/23 Elias Kendrick MD [address] [place] [address] Neurology 11/02/23 Alis Burgess, PA-C [facility] [address] [place] [address] Physician Staple Side Laster Emergency Medicine 11/02/23
--- OUTSIDE RECORDS SUMMARY | 2023-11-03 08:06 | XMS_ITS | Encounter Summary ---
Author Organization [facility] Address [address] [place] [address] Care Team Providers Care Appraiser Name Role Phone No Ref-Primary, Physician Primary Care Provider Inga Ibarra DO Unavailable [phone] Dottie Lucas MD Unavailable + Elva Ramos APRN Unavailable [phone] Inga Ibarra DO Unavailable [phone] Nicolasa Sapp MD Unavailable [phone] [facility]- Primary Care Provider Elias Kendrick MD Unavailable + [phone] Alis Burgess PA-C Unavailable [phone] Encounter Details Date Type Department Care Team (Late st Contact Info) Description 06/25/2013 [facility], Non-Provider Social History Tobacco [...] Description 11/10/2023 11:00 AM CDT Office Visit [facility] [place] [address] [place] [phone] Alis Burgess, PA-C [facility] [place] [address] [facility] [address] [facility] [place] [address] Elias Kendrick MD [address] [place] [address] documented as of this encounter Visit Diagnoses Not on filedocumented in this encounter Additional Health Concerns Infection Onset Date Last Indicated Resolved Time Rule Out COVID-19 12/17/2019 12/17/2019 12/18/2019 6:16 PM CDT documented as of this encounter Care Teams Appraiser Relationship Specialty Start Date End Date No Ref-Primary, Physician PCP - General 02/23/14 10/31/23 [facility]- [address], [place] [address] PCP - General 11/01/23 Inga Ibarra DO [address] [facility] 100 [place] [address] Assigned OBGYN Provider 01/06/20 Dottie Lucas MD [address] [facility] [address] [place] [address] Assigned OBGYN Provider 06/10/20 Elva Clarke APRN CNM [address] [facility] [address] [place] [address] Assigned OBGYN Provider 07/01/20 sInga DO [address] [facility] 100 [place] [address] Assigned OBGYN Provider 06/17/20 Nicolasa Sapp MD [address], [facility] 100 [place] [address] Assigned OBGYN Provider 11/11/20 Elias Kendrick MD [address] [facility] 200 [place] [address] Neurology 11/02/23 Alis Burgess, AFIAC [facility] [address] [facility] 100 [place] [address] Physician Keno Dealer Emergency Medicine 11/02/23 documented as of this encounter
--- OUTSIDE RECORDS SUMMARY | 2023-11-03 08:06 | XMS_ITS | Encounter Summary ---
Author Organization [place] Address [address] [place] [address] Care Team Providers Care Musical Instrument Mechanic Name Role Phone No Ref-Primary, Physician Primary Care Provider Elva Ramos APRN CN Unavailable [phone] Nicolasa Sapp MD Unavailable [phone] [facility]- Primary Care Provider Elias Kendrick MD Unavailable + [phone] Alis Burgess PA-C Unavailable [phone] Encounter Details Date Type Department Care Team (Late st Contact Info) Description 10/01/2020 MyC Medical Advice [address] [address] Nicole Garcia, [facility] Social History Tobacco Use Types Packs/Day Years Used Date Smoking Tobacco: Never Smokeless Tobacco: Never Alcohol Use Standard Drinks/Week Comments No 0 (1 standard drink = 0.6 oz pur e alcohol) PHQ-2 Answer Date Recorded PHQ-2 Score 0 03/03/2019 [place] Depression Scale Answer Date Recorded [place] Depression Score 8 12/17/2018 Last EPDS Self [...] Description 11/10/2023 11:00 AM CDT Office Visit [facility] [place] [address] [place] [address] [place] [phone] Alis Burgess, PA-C [facility] [address] [facility] [address] [place] [address] Elias Kendrick MD [address] [place] [address] documented as of this encounter Visit Diagnoses Not on filedocumented in this encounter Additional Health Concerns Assessment Noted Time PHQ-9 Depression Total Score: 11 01/27/ 019 9:38 AM DRESSING ROOM ATTENDANT documented as of this encounter Care Teams Musical Instrument Mechanic Relationship Specialty Start Date End Date No Ref-Primary, Physician PCP - General 02/23/14 10/31/23 [facility]- [address] [place] [address] PCP - General 11/01/23 Elva Ramos APRN CNM [address] [facility] [facility] 100 [place] [address] Assigned OBGYN Provider 07/01/20 Nicolasa Sapp MD [address] [facility] 100 [place] [address] Assigned OBGYN Provider 11/11/20 Elias Kendrick MD [address] [place] [address] Neurology 11/02/23 Alis Burgess, AFIAC [facility] [address] [place] [address] Physician Cardiac Exercise Physiologist Emergency Medicine 11/02/23 documented as of this encounter
--- NOTE | 2023-11-03 09:24 | W.ANESCHARGE ---
Anesthesia Charges Start Date/Time Anesthesia Start Date: 11/03/23 Anesthesia Start Time: 08:43 Stop Date/Time Anesthesia Stop Date: 11/03/23 Anesthesia Stop Time: 09:20
--- NOTE | 2023-11-03 10:42 | W.ANESCHARGE ---
Anesthesia Charges Start Date/Time Anesthesia Start Date: 11/03/23 Anesthesia Start Time: 08:43 Stop Date/Time Anesthesia Stop Date: 11/03/23 Anesthesia Stop Time: 09:20
== END 2023-11-03 08:04 | disposition home or self-care (01) ==
LOC: OP CLINIC 08:04
PROVIDERS: Visit Provider Surgery
DX: K62.5 Hemorrhage of anus and rectum (principal); K63.5 Polyp of colon
CPT/HCPCS: 00811; 45380; 45385; 88305; J2704

== ENCOUNTER 2023-11-06 13:34 | Outpatient (CLI) | payer OTHER, SELFPAY ==
--- OUTSIDE RECORDS SUMMARY | 2023-11-06 13:36 | XMS_ITS | Clinical Summary ---
Author Organization [facility] Address [address] [place] [address] Care Team Providers Care Drug Abuse Technician Name Role Phone Viola Amaral MD Primary [...] for each transition of care or referral. [place] Allergies Active Allergy Reactions Criticality Noted Date Comments [place] Cockroach Other, see comments 10/07/19 13 Cat Hair Extract Other, see comments 10/06/2012 Dust Mite Extract Other, see comments 3 Nuts Nausea And Vomiting,Respiratory Distress High 07/21/2013 Other reaction(s): Dizziness Peanut (Diagnostic) Respiratory Distress High 2013 [place] Oil Edema,generalized,Re sp iratory Distress High 05/06/2018 Other reaction(s): Edema Medications No known medications Active Problems No known active problems Immunizations Name Administration Dates Next Due 4vHPV (Gardasil) 06/08/2012,01/20/2012, 2 DTP 05/04/1998,02/20/1998 DTaP 09/11/2003,02/25/1999,07/11/1998 Flu Vac (3+ yrs) 02/26/2007 Fluzone Qiv Multidose Vial 0 .25 (6-35 Mos) 05/06/2017 [id number] 01/18/2008 HepA Adult (19+ yrs) 09/13/2013,12/07/2012 HepB Adult (Engerix-B, 20+ y rs, 3 dose series) 06/01/1998,02/20/1998 HepB Ped/Adol (0-18 yrs) 1997 HepB, Unspecified Formulation 06/01/1998, 998,1997 Hib (PedvaxHIB) 02/25/1999, 9,06/01/1998,1997 IPV (Polio) 09/11/2003, 9,06/01/1998,1997 Influenza (Fluzone 0.25, 6-35 mos) 02/01/2013 Influenza IIV4 (Quadrivalent ) 0.5mL (48810) 12/06/2018,05/06/2018 Influenza Vaccine TIV, Nasal 01/18/2008 MCV4 [...] Comments Blood Pressure 106/67 05/16/2022 10:27 AM E COMMERCE MANAGER Pulse 60 12/01/2011 8:21 PM CDT Temperature 37 ??C (98.6 ??F) 12/01/2011 8:21 PM CDT Respiratory Rate 16 12/01/2011 8:21 PM CDT Oxygen Saturation - - Inhaled Oxygen Concentration - - Weight 79.1 kg (174 lb 6.4 oz) 05/16/2022 10:27 AM E COMMERCE MANAGER Height 157.5 cm (5' 2) 12/01/2011 8:21 [...] Comments PAP TEST Routine 05/16/2022 10:52 AM E COMMERCE MANAGER Pap smear for cervical cancer screening from Last 3 Months or Most Recently Relevant to Health Maintenance Results * PAP Test (05/16/2022 10:52 AM E COMMERCE MANAGER) Case Report Pap ? Case: [id number] ? Authorizing Provider: ??Kamala Em, DO ? Collected: ? 05/16/2022 1052 ? Ordering Location: ? [place] [id number] ?Received: ?05/16/2022 1230 ? Obstetrics/Gyneco logy ? First Screen: ?Adilene Low ? Specimen: ?Pap Test, Routine, Cervix/Endocervix ? 06/03/2022 2:50 PM CDT [facility] Pap Specimen Adequacy Satisfactory for evaluation, endocervical/bo sformation zone component present. 06/03/2022 2:50 PM CDT [facility] Pap Interpretation (NILM) Negative for intraepithelial lesion or malignancy. 06/03/2022 2:50 PM CDT [facility] Pap Other Findings Fungal organisms morphologically consistent with Marilu spp. 06/03/2022 2:50 PM CDT [facility] Pap Disclaimer The Pap test is a screening test designed to aid in the detection of cervical cancer and its precursor lesions. It is not a diagnostic procedure and should not be used as the sole means of detecting cervical cancer. Both false-positive and false-negative results may occur. 06/03/2022 2:50 PM CDT [facility] Gross Description The specimen is received in SurePath fixative and properly labeled. 1 Pap-stained SurePath slide is prepared. 06/03/2022 2:50 PM CDT [facility] Embedded Images 2:50 PM CDT [facility] Other Specimen Type ENTIRE ENDOCERVIX / Unknown 05/16/2022 10:52 AM E COMMERCE MANAGER 05/16/2022 12:30 PM E COMMERCE MANAGER Comment:LMP: Patient's last menstrual period was 04/23/2022 (approximate). Kamala Em DO LAB PATHOLOGY [facility] [address] from Last 3 Months or Most Recently Relevant to Health Maintenance Care Teams Drug Abuse Technician Relationship Specialty Start Date End Date Viola Amaral MD PCP - General Pediatric Medicine 03/29/12
--- OUTSIDE RECORDS SUMMARY | 2023-11-06 13:36 | XMS_ITS | Referral Summary ---
Author Organization [facility] Address [address] [place] [address] Care Team Providers Care Games Dealer Name Role Phone Unavailable Primary Care Provider Unavailabl e Source Comments Patient records contain information from all sites at [facility]. For routine questions regarding patient records, call [phone] during business hours, M-F 8:00 AM - 5:00 PM Central Time. Record requests for emergency care only can be directed to [phone] at any time.[facility] Allergies Active Allergy Reactions Criticality Noted [...] Comments Blood Pressure 122/86 03/07/2023 10:33 AM CARDIOPULMONARY SPECIALIST Pulse 76 03/07/2023 10:33 AM CARDIOPULMONARY SPECIALIST Temperature 36.4 ??C (97.5 ??F) 03/07/2023 10:[address] Respiratory Rate - - Oxygen Saturation 98% 03/07/2023 10:33 AM CARDIOPULMONARY SPECIALIST Inhaled Oxygen Concentration - - Weight 78.9 kg (174 lb) 01/17/2023 9:39 AM CDT Height - - Body Mass Index - - Plan of Treatment Not on file
--- OUTSIDE RECORDS SUMMARY | 2023-11-06 13:36 | XMS_ITS | Clinical Summary ---
Author Organization [facility] Address [address] [place] [address] Care Team Providers Care Technical Applications Scientist Name Role Phone Unavailable Primary Care Provider Unavailabl e Source Comments Patient records contain information from all sites at [facility]. For routine questions regarding patient records, call [phone] during business hours, M-F 8:00 AM - 5:00 PM Central Time. Record requests for emergency care only can be directed to [phone] at any time.[facility] Allergies Active Allergy Reactions Criticality Noted Date [...] Comments Blood Pressure 122/86 03/07/2023 10:33 AM SHIPPING AND RECEIVING COORDINATOR Pulse 76 03/07/2023 10:33 AM SHIPPING AND RECEIVING COORDINATOR Temperature 36.4 ??C (97.5 ??F) 03/07/2023 10:[address] Respiratory Rate - - Oxygen Saturation 98% 03/07/2023 10:33 AM SHIPPING AND RECEIVING COORDINATOR Inhaled Oxygen Concentration - - Weight 78.9 [...]
--- OUTSIDE RECORDS SUMMARY | 2023-11-06 13:36 | XMS_ITS ---
Author Organization [facility] Address [address] [place] [address] Care Team Providers Care Disc Pad Knockout Worker Name Role Phone Unavailable Unavailable Unavailable Surgery Details Not on file Complications Check Surgery Details section. Procedure Estimated Blood Loss Check Surgery Details section. Procedure Findings Check Surgery Details section. Procedure Specimens Taken Check Surgery Details section.
--- OUTSIDE RECORDS SUMMARY | 2023-11-06 13:37 | XMS_ITS | Encounter Summary ---
Author Organization [facility] Address [address] [place] [address] Care Team Providers Care Service Greeter Name Role Phone [facility]- Primary Care Provider Elias Kendrick MD Unavailable [phone] Alis Burgess PA-C Unavailable [phone] Encounter Details Date Type Department Care Team (Latest Contact Info) Description 11/05/2023 Travel Social History Tobacco Use Types Packs/Day Years Used Date Smoking Tobacco: Never Smokeless Tobacco: Never Alcohol Use Standard Drinks/Week Comments No 0 (1 standard drink = 0.6 oz pur e alcohol) PHQ-2 Answer Date Recorded PHQ-2 Score 1 10/16/2020 [place] Depression Scale Answer Date Recorded [place] Depression Score 8 12/17/2018 Last EPDS Self [...] Female 10/01/2020 10:47 AM CDT Sexual Orientation Straight 11/05/2023 9: 30 AM CDT documented as of this encounter Plan of Treatment Upcoming Encounters Date Type Department Care Team (Late st Contact Info) Description 11/10/2023 11:00 AM CDT Office Visit [facility] [place] [address] [place] [phone] Alis Burgess PA-C [facility] [address] [place] [address] Elias Kendrick MD [address] [place] [address] documented as of this encounter Visit Diagnoses Not on filedocumented in this encounter Additional Health Concerns Assessment Noted Time PHQ-9 Depression Total Score: 11 019 9:38 AM TAPE CUTTER documented as of this encounter Care Teams Service Greeter Relationship Specialty Start Date End Date [facility]- [address] [place] [address] PCP - General 11/01/23 Elias Kendrick MD [address] [place] [address] Neurology 11/02/23 Alis Burgess PA-C [facility] [address] [place] [address] Physician Brand Strategist Emergency Medicine 11/02/23 documented as of this encounter
--- OUTSIDE RECORDS SUMMARY | 2023-11-06 13:37 | XMS_ITS | Clinical Summary ---
Author Organization [facility] Address [address] [place] [address] Care Team Providers Care Recycling Coordinator Name Role Phone [facility]- Primary Care Provider Elias Kendrick MD Unavailable [phone] Alis Burgess PA-C Unavailable [phone] Allergies Active Allergy Reactions Criticality Noted Date Comments Cat Hair Extract 10/06/2012 Cockroach 10/06/2012 Dust Mite Extract 10/06/2012 Nuts Nausea and Vomiting,Shortness Of Breath High 10/23/2018 Other reaction(s): Dizziness Peanut (Diagnostic) Shortness Of Breath High 014 Kay Oil Shortness Of Breath High 05/06/2018 Other reaction(s): Edema Medications Medication Sig Dispensed Refills Start Date End Date Status EPINEPHrine (EPIPEN/ADRENACLICK/ OR ANY BX GENERIC EQUIV) 0.3 MG/0.3ML injection 2-pack INJECT 1 PEN UTD FOR ALLERGIC REACTION UTD 3 06/01/2017 Active Prenat w/o P-QQ-Ghmvngj-FA-DHA (PNV-DHA) 27-0.6-0.4-300 MG CAPSIndications:Preg dom Take 1 [...] Encounters Date Type Department Care Team Description 11/05/2023 Travel 11/01/2023 4:30 PM CDT - 11/01/2023 10:07 PM CDT Emergency [facility] Emergency Dept [address] [place] [address] Alis Burgess, BULMARO Abdominal pain; Vaginal bleeding; [...] Answer Date Recorded PHQ-2 Score 1 10/16/2020 [place] Depression Scale Answer Date Recorded [place] Depression Score 8 12/17/2018 Last EPDS Self [...] Orientation Straight 11/05/2023 9: 30 AM CDT Last Filed Vital Signs Vital [...] Description 11/10/2023 11:00 AM CDT Office Visit [facility] Neurology [facility] [place] [address] [place] [address] [place] [address] Alis Burgess, PAAndersC [facility] [address] [facility] [address] [place] [address] Elias Kendrick MD [address] [place] [address] Health Maintenance Due Date Last Done Comments ADVANCE CARE PLANNING 1997 ANNUAL REVIEW OF HM ORDERS 1997 DEPRESSION ACTION PLAN 1997 YEARLY PREVENTIVE VISIT 08/20/2017 08/21/19 17, 08/20/2016, 06/06/2015, Additional history exists PHQ-9 07/28/2019 01/27/2019, 12/30/2018 COVID-19 Vaccine (2022- season) 2022 INFLUENZA VACCINE (#1) 2023 3, [...] Discontinued 11/01/2023, 05/06/2018, 10/18/2017, Additional history exists Pneumococcal Vaccine: Pediatrics (0 to 5 Years) [...] THIN LAYER SCREEN Routine 01/27/2019 9:50 AM STAFF ANESTHESIOLOGIST Screening for cervical cancer Routine follow-up from [...] LAB - MICRO GEN ERAL ORDERABLES LABORATORY [facility] Acute Care Lab [address] [facility] Lab (1st floor, no room number) [place] [address], [facility] * Neisseria gonorrhoeae PCR (11/01/2023 9:19 PM CDT) Neisseria gonorrhoeae Negative Negative 11/02/2023 9:44 AM CDT [facility] Comment:Negative for N. gono rrhoeae rRNA by turkey egg gatherer mediated amplification. A negative result by turkey egg gatherer mediated amplification does not preclude the presence of C. trachomatis infection because results are dependent on proper and adequate collection, absence of inhibitors and sufficient rRNA to be detected. Swab VAGINAL STRUCTURE / Unknown Non-blood Collection / Unknown 11/01/2023 9:19 PM CDT 11/01/2023 9:23 PM CDT Alis Burgess PA-C LAB - MICRO GEN ERAL ORDERABLES [facility] Inf. Diseases Diag. Lab [address] [facility], [address] [place] [phone] * (ABNORMAL) UA with Microscopic [...] 11/01/2023 7:41 PM CDT [facility] LABORATORY Specific [place] Urine 1.015 1.003 - 1.035 11/01/2023 7:41 [...] Burgess PA-C LAB - URINE ORD ERABLES [facility] Acute Care Lab [address] Lab (1st floor, no room number) [place] [address] * US Pelvis Cmplt w [...] COMPLETE W TRANSVAGINAL AND DOPPLER LIMITED LOCATION: [facility] DATE: 11/01/2023 INDICATION: Pelvic pain [...] COMPLETE W TRANSVAGINAL AND DOPPLER LIMITED LOCATION: [facility] DATE: 11/01/2023 INDICATION: Pelvic pain [...] Pathologist [facility] Hold Specimen [facility] 11/01/2023 7:16 PM CDT LABORATORY Blood VENOUS LINE / Unknown Venipuncture / Unknown 11/01/2023 5:53 PM CDT 11/01/2023 6:05 PM CDT Alis Burgess PA-C LAB - BLOOD ORD ERABLES LABORATORY [facility] Acute Care Lab [address] Lab (1st floor, no room number) [place] [address], [place] * Extra Blue Top Tube (11/01/2023 5:53 PM CDT) Hold Specimen JI 11/01/2023 7:16 PM CDT [facility] LAB[facility]ATORY Blood VENOUS LINE / Unknown Venipuncture / Unknown 11/01/2023 5:53 PM CDT 11/01/2023 6:05 PM CDT Alis Burgess PA-C LAB - BLOOD ORD ERABLES [facility] LABORATORY [facility] Acute Care Lab [address] Lab (1st floor, no room number) [place] [address], [facility] * CBC with platelets and differential [...] LAB - BLOOD ORD ERABLES [facility] LABORATORY [facility] Acute Care Lab [address] [facility] Lab (1st floor, no room number) [place] [address], [facility] * TSH with free T4 reflex (11/01/2023 5:53 PM CDT) [facility] TSH 2.37 0.30 - 4.20 uIU/mL 11/01/2023 6:34 PM CDT [facility] LABORATORY Blood VENOUS LINE / Unknown Venipuncture / Unknown 11/01/2023 5:53 PM CDT 11/01/2023 6:05 PM CDT Alis Burgess PA-C LAB - BLOOD ORD ERABLES LABORATORY [facility] Care Lab [address] Lab (1st floor, no room number) [address] * Magnesium (11/01/2023 5:53 PM CDT) Magnesium 2.1 1.7 - 2.3 mg/dL 11/01/2023 6:27 PM CDT [facility] LAB[facility]ATORY Blood VENOUS LINE / Unknown Venipuncture / Unknown 11/01/2023 5:53 PM CDT 11/01/2023 6:05 PM CDT Alis Burgess PA-C LAB - BLOOD ORD ERABLES Performing Organization Address City/[facility]/ZIP Co de Phone Number [facility] Care Lab [address] Lab (1st floor, no room number) [address] * Lipase (11/01/2023 5:53 PM CDT) Pathologist [facility] Lipase 34 13 - 60 U/L 11/01/2023 6:27 PM CDT LABORATORY Blood VENOUS LINE / Unknown Venipuncture / Unknown 11/01/2023 5:53 PM CDT 11/01/2023 6:05 PM CDT Alis Burgess PA-C LAB - BLOOD ORD ERABLES [facility] Acute Care Lab [address] Lab (1st floor, no room number) [address] * hCG QUALitative (blood) (11/01/2023 5:53 PM CDT) hCG Serum Qualitative Negative Negative SANDRO 11/01/2023 7:11 PM CDT [facility] Comment:This test is for scr eening purposes. Results should be interpreted along with the clinical picture. Confirmation testing is available if warranted by ordering [id number], HCG Quantitative . Blood VENOUS LINE / Unknown Venipuncture / Unknown 11/01/2023 5:53 PM CDT 11/01/2023 6:05 PM CDT Alis Burgess PA-C LAB - BLOOD ORD ERABLES LABORATORY [facility] Acute Care Lab [address] Lab (1st floor, no room number) [place] [address] * Comprehensive metabolic panel (11/01/2023 5:53 PM CDT) Sodium 138 135 - 145 mmol/L 11/01/2023 6:27 PM CDT LABORATORY Potassium 3.8 3.4 - 5.3 mmol/L 11/01/2023 6:27 PM CDT LABORATORY Carbon Dioxide (CO2) 22 22 - 29 mmol/L 11/01/2023 6:27 PM CDT LABORATORY Anion Gap 14 7 - 15 [...] - 107 mmol/L 11/01/2023 6:27 PM CDT LABORATORY Glucose 86 70 - 99 mg/dL [...] - BLOOD ORD ERABLES Performing Organization Address City/State/[facility] Co de Phone Number [facility] LABORATORY [facility] Acute Care Lab [address] Lab (1st floor, no room number) [place] [address] * EKG 12-lead, tracing only (11/01/2023 5:44 PM CDT) Systolic Blood Pressure mmHg RADIOLOGY RESULTS Diastolic Blood Pressure mmHg RADIOLOGY RESULTS Ventricular Rate 46 BPM RAD IOLOGY RESULTS Atrial Rate 46 BPM RADIOLOG Y RESULTS NC Interval 142 ms RADIOLOG Y RESULTS QRS Duration 88 ms RADIOLO GY RESULTS QT 484 ms RADIOLOGY RESULTS QTc 423 ms RADIOLOGY RESULTS P [place] 27 degrees RADIOLOGY RESULTS R AXIS 69 degrees RADIOLOGY RESULTS T [place] 22 degrees RADIOLOGY RESULTS Interpretation ECG Sinus bradycardia with sinus arrhythmia Otherwise normal ECG When compared with ECG of 09-Oct-2020 17:48, Nonspecific T wave abnormality no longer evident in Anterior leads Confirmed by - EMERGENCY ROOM, PHYSICIAN ([id number]), photographic editor MONISHA WEAVER (Doug) on 11/02/2023 7:30:44 AM RADIOLOGY RESULTS 11/01/2023 5:44 PM CDT 11/02/2023 7:30 AM CDT Alis J Aditya PA-C ECG ORDERABLES RADIOLOGY RESULTS * HIV Antigen Antibody Combo (10/24/2020 1:14 PM CDT) HIV Antigen Antibody Combo Nonreactive Nonreactive 10/25/2020 11:19 AM CDT [facility] Comment:HIV-1 p24 Ag & HIV-1 /HIV-2 Ab Not Detected Blood STRUCTURE OF RIGHT UPPER LIMB / Unknown Venipuncture / Unknown 10/24/2020 1:14 PM CDT 10/24/2020 1:15 PM CDT Nicolasa Sapp MD LAB - BLOOD ORDER SHEY [facility] Specialty Core Lab [address] [facility], [address] [address], [facility] [phone] * Hepatitis C antibody (10/24/2020 1:14 PM CDT) Hepatitis C Antibody Nonreactive Nonreactive 10/25/2020 11:19 AM CDT [facility] Blood STRUCTURE OF RIGHT UPPER LIMB / Unknown Venipuncture / Unknown 10/24/2020 1:14 PM CDT 10/24/2020 1:15 PM CDT Narrative [facility] - 10/25/2020 11:19 AM CDT Assay performance characteristics have not been established for newborns, infants, and children. Nicolasa Sapp MD LAB - BLOOD ORDER SHEY [facility] Specialty Core Lab [address] [facility], [address] [address], [facility] [phone] * Pap imaged thin layer screen only - recommended age 21 - 24 years (01/27/2019 9:50 AM STAFF ANESTHESIOLOGIST) PAP NIL COPATH Copath Report Patient Name: AVA DELAROSA MR#: [id number] Specimen #: [id number] Collected: 01/27/2019 Received: 01/28/2019 Reported: 02/02/2019 10:22 [...] adenocarcinomas or other cancers. COLLECTION SITE: Client: ??[facility] Location: PRICILA (S) The technical component of this testing was completed at the [facility], with the professional component performed at the [facility], [address] [place] [phone] ([phone]) COPATH Cytologic material (specimen) 01/27/2019 9:50 AM STAFF ANESTHESIOLOGIST 01/28/2019 9:39 AM STAFF ANESTHESIOLOGIST Yesi Espinoza Masters DO LAB - OPTIME CL INICAL SPECIMEN COPATH from Last 3 Months or Most Recently Relevant to Health Maintenance Care Teams Recycling Coordinator Relationship Specialty Start Date End Date [facility]- [address] [place] [address] PCP - General 11/01/23 Elias Kendrick MD [address] [place] [address] Neurology 11/02/23 Alis Burgess, PAAndersC [facility] [address] [place] [address] Physician Grocery Supervisor Emergency Medicine 11/02/23
--- OUTSIDE RECORDS SUMMARY | 2023-11-06 13:37 | XMS_ITS | Encounter Summary ---
Author Organization [facility] Address [address] [place] [address] Care Team Providers Care Circular Stuffer Name Role Phone No Ref-Primary, Physician Primary Care Provider Inga Ibarra DO Unavailable [phone] Dottie Lucas MD Unavailable + Elva Ramos APRN Unavailable [phone] Inga Ibarra DO Unavailable [phone] Nicolasa Sapp MD Unavailable [phone] [facility]- Primary Care Provider Elias Kendrick MD Unavailable [phone] Alis Burgess PA-C Unavailable [phone] Encounter Details Date Type Department Care Team [...] Description 11/10/2023 11:00 AM CDT Office Visit [facility] Neurology Clinic [place] [address] [place] [phone] Alis Burgess, PAAndersC [facility] [address] [place] [address] Elias Kendrick MD [address] [facility] [place] [address] documented as of this encounter Visit Diagnoses Not on filedocumented in this encounter Additional Health Concerns Infection Onset Date Last Indicated Resolved Time Rule Out COVID-19 12/17/2019 12/17/2019 12/18/2019 6:16 PM CDT documented as of this encounter Care Teams Circular Stuffer Relationship Specialty Start Date End Date No Ref-Primary, Physician PCP - General 02/23/14 10/31/23 [facility]- [address], [place] [address] PCP - General 11/01/23 Inga Ibarra DO [address] [facility] [place] [address] Assigned OBGYN Provider 01/06/20 Dottie Lucas MD [address] [facility] [place] [address] Assigned OBGYN Provider 06/10/20 Elva Clarke APRN CNM [address] [facility] [address] [place] [address] Assigned OBGYN Provider 07/01/20 sInga DO [address] [facility] 100 [place] [address] Assigned OBGYN Provider 06/17/20 Nicolasa Sapp MD [address] [facility] 100 [place] [address] Assigned OBGYN Provider 11/11/20 Elias Kendrick MD [address] [facility] 200 [place] [address] Neurology 11/02/23 Alis Burgess, PAAndersC [facility] [address] [facility] 100 [place] [address] Physician Dietary Service Aide Emergency Medicine 11/02/23 documented as of this encounter
--- OUTSIDE RECORDS SUMMARY | 2023-11-06 13:37 | XMS_ITS | Encounter Summary ---
Author Organization [facility] Address [address] [place] [address] Care Team Providers Care Group Home Counselor Name Role Phone No Ref-Primary, Physician Primary Care Provider Elva Ramos APRN Unavailable [phone] Nicolasa Sapp MD Unavailable [phone] [facility]- Primary Care Provider Elias Kendrick MD Unavailable [phone] Alis Burgess PA-C Unavailable [phone] Encounter Details Date Type Department Care Team (Late st Contact Info) Description 10/01/2020 [facility] Medical Advice [address] [address] Nicole Garcia, [facility] Social History Tobacco Use Types Packs/Day Years Used Date Smoking Tobacco: Never Smokeless Tobacco: Never Alcohol Use Standard Drinks/Week Comments No 0 (1 standard drink = 0.6 oz pur e alcohol) PHQ-2 Answer Date Recorded PHQ-2 Score 0 03/03/2019 [place] Depression Scale Answer Date Recorded [place] Depression Score 8 12/17/2018 Last EPDS Self [...] Description 11/10/2023 11:00 AM CDT Office Visit [facility] Neurology Clinic [place] [address] [facility] [address] [place] [phone] Alis Burgess, PA-C [facility] [address] [facility] 100 [place] [address] Elias Kendrick MD [address] [facility] 200 [place] [address] documented as of this encounter Visit Diagnoses Not on filedocumented in this encounter Additional Health Concerns Assessment Noted Time PHQ-9 Depression Total Score: 11 019 9:38 AM WING SCORER documented as of this encounter Care Teams Group Home Counselor Relationship Specialty Start Date End Date No Ref-Primary, Physician PCP - General 02/23/14 10/31/23 [facility]- [address] [place] [address] PCP - General 11/01/23 Elva Ramos APRN CNM [address] [facility] 100 [place] [address] Assigned OBGYN Provider 07/01/20 Nicolasa Sapp MD [address] [facility] 100 [place] [address] Assigned OBGYN Provider 11/11/20 Elias Kendrick MD [address] [place] [address] Neurology 11/02/23 Alis Burgess, PAAndersC [facility] [address] [place] [address] Physician Arterial Embalmer Emergency Medicine 11/02/23 documented as of this encounter
--- OUTSIDE RECORDS SUMMARY | 2023-11-06 13:37 | XMS_ITS | Encounter Summary ---
Author Organization [facility] Address [address] [place] [address]. [place] [address] Care Team Providers Care Design Director Name Role Phone [facility]- Primary Care Provider Encounter Details Date Type Department Care Team (Latest Contact Info) Description 11/01/2023 Travel Social History Tobacco Use Types Packs/Day Years Used Date Smoking Tobacco: Never Smokeless Tobacco: Never Alcohol Use Standard Drinks/Week Comments No 0 (1 standard drink = 0.6 oz pur e alcohol) PHQ-2 Answer Date Recorded PHQ-2 Score 1 10/16/2020 [place] Depression Scale Answer Date Recorded [place] Depression Score 8 12/17/2018 Last EPDS Self [...] Description 11/10/2023 11:00 AM CDT Office Visit [facility] Neurology [address] [phone] Alis Burgess PA-C [facility] [address] [facility] [address] [place] [address] Elias Kendrick MD [address] [place] [address] documented as of this encounter Visit Diagnoses Not on filedocumented in this encounter Additional Health Concerns Assessment Noted Time PHQ-9 Depression Total Score: 11 019 9:38 AM CARBON BRUSH 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
--- OUTSIDE RECORDS SUMMARY | 2023-11-06 13:37 | XMS_ITS | Encounter Summary ---
Author Organization [place] Address [address] [place] [address] Care Team Providers Care Dinkey Operator Slate Name Role Phone No Ref-Primary, Physician Primary Care Provider Inga Ibarra DO Unavailable [phone] Dottie Lucas MD Unavailable + Elva Ramos APRN Unavailable [phone] Inga Ibarra DO Unavailable [phone] Nicolasa Sapp MD Unavailable [phone] [facility]- Primary Care Provider Elias Kendrick MD Unavailable [phone] Alis Burgess PA-C Unavailable [phone] Encounter Details Date Type Department Care Team (Late st Contact Info) Description 07/09/2018 [facility] [address] [place] [address] Maryana Crawford, RN Social History Tobacco [...] Description 11/10/2023 11:00 AM CDT Office Visit [facility] Neurology [facility] [address] [place] [phone] Alis Burgess, PA-C [facility] [address] [place] [address] Elias Kendrick MD [address] [place] [address] documented as of this encounter Visit Diagnoses Not on filedocumented in this encounter Additional Health Concerns Infection Onset Date Last Indicated Resolved Time Rule Out COVID-19 12/17/2019 12/17/2019 12/18/2019 6:16 PM CDT documented as of this encounter Care Teams Dinkey Operator Slate Relationship Specialty Start Date End Date No Ref-Primary, Physician PCP - General 02/23/14 10/31/23 [facility]- [address] [place] [address] PCP - General 11/01/23 Inga Ibarra DO [address] [place] [address] Assigned OBGYN Provider 01/06/20 Dottie Lucas MD [address] [place] [address] Assigned OBGYN Provider 06/10/20 1 Elva Ramos APRN CNM [address] [facility] 100 [place] [address] Assigned OBGYN Provider 07/01/20 Inga Ibarra DO [address] [facility] [address] [place] [address] Assigned OBGYN Provider 06/17/20 Nicolasa Sapp MD [address] [facility] 100 [place] [address] Assigned OBGYN Provider 11/11/20 Elias Kendrick MD [address] [facility] 200 [place] [address] Neurology 11/02/23 Alis Burgess, AFIAC [facility] [address] [facility] 100 [place] [address] Physician Electric Fork Operator Emergency Medicine 11/02/23 documented as of this encounter
--- OUTSIDE RECORDS SUMMARY | 2023-11-06 13:37 | XMS_ITS | Encounter Summary ---
Author Organization [facility] Address [address] [place] [address]. [place] [address] Care Team Providers Care Senior Project Architect Name Role Phone [facility]- Primary Care Provider Reason for Referral * Consultation (Urgent: 3-5 Days) - Pending Review Specialty Diagnoses / Procedures Referred By Ochoa mcmillan Referred To Contact Diagnoses Transient disorientation Alis Burgess PA-C [facility] [address] [place] [address] Referral ID Status Reason Start Date Expiration Date V isits Requested Visits Authorized [id number] Pending Review 11/01/2023 10/31/2024 1 1 Question Answer Reason for Referral: General Neurology Scheduling Instructions: [facility] will call you to coordinate your care as prescribed by your provider. If you don't hear from a customer retention representative within 2 business days, please call . Comments Please be aware that coverage of these services is subject to the terms and limitations of your health insurance plan. Call member services at your health plan with any benefit or coverage questions. [facility] will call you to coordinate your care as prescribed by your provider. If you don't hear from a customer retention representative within 2 business days, please call . Reason for Visit * Reason Comments Generalized Weakness Encounter Details Date Type Department Care Team (Lorenzo Contact Info) Description 11/01/2023 4:30 PM CDT - 11/01/2023 10:07 PM CDT Emergency [facility] Emergency Dept [address] [place] [address] Alis Burgess, AFIAC [facility] [address] [address] Abdominal pain; Vaginal bleeding; Lightheadedness; Transient disorientation Discharge Disposition: Home or Self Care Social History Tobacco Use Types Packs/Day Years Used Date Smoking Tobacco: Never Smokeless Tobacco: Never Alcohol Use Standard Drinks/Week Comments No 0 (1 standard drink = 0.6 oz pur e alcohol) PHQ-2 Answer Date Recorded PHQ-2 Score 1 10/16/2020 Kelford Depression Scale Answer Date Recorded Kelford Depression Score 8 12/17/2018 Last EPDS Self [...] closely, follow up with primary care provider, KNOT SAW OPERATOR, and neurologist for furtherevaluation Return to ED for any new or worsening symptoms * Attachments The following attachments cannot be sent through Care Everywhere. * Lightheadedness or Faintness (Kuwaiti) documented in this encounter Medications at Time of Discharge Medication Sig Dispensed Refills Start Date End Date EPINEPHrine (EPIPEN/ADRENACLICK/OR ANY BX GENERIC EQUIV) 0.3 MG/0.3ML injection 2-pack INJECT 1 PEN UTD FOR ALLERGIC REACTION UTD 3 06/01/2017 Prenat w/o K-JR-Rhqhkyw-FA-DHA (PNV-DHA) 27-0.6-0.4-300 MG CAPSIndications:Pregnan cy Take 1 [...] of External Notes 07/23/23: Patient evaluated at [place], had labs and US without any concerning [...] Bilirubin Urine Negative Ketones Urine Negative Specific [place] Urine 1.015 Blood Urine Negative pH Urine [...] to prior, dated 10/09/20. Rate 46 bpm. NV interval 142 ms. QRS duration 88 ms. [...] Documentation None Medical Decision Making / Diagnosis [facility] Diagnoses: None MIPS None MDM Ava Myers [...] follow-up with her primary care provider and KNOT SAW OPERATOR for reevaluation of the abdominal pain and [...] R42 4. Transient disorientation R41.0 Adult Neurology Credit Support Counselor Referral Scribe Disclosure: I, Laly Fletcher, am [...] Visit [facility] Neurology [facility] [place] [address] [place] [address] Alis Burgess, PAAndersC [facility] [address] [facility] [address] [place] [address] Elias Kendrick MD [address] [place] [address] Scheduled Referrals Name Type Priority Associated Diagnoses Orde r Schedule Adult Neurology Credit Support Counselor Referral Referral Urgent: 3-5 Days Transient disorientation [...] Comment:Negative for N. gono rrhoeae rRNA by delivery table operator mediated amplification. A negative result by delivery table operator mediated amplification does not preclude the presence of C. trachomatis infection because results are dependent on proper and adequate collection, absence of inhibitors and sufficient rRNA to be detected. Swab VAGINAL STRUCTURE / Unknown Non-blood Collection / Unknown 11/01/2023 9:19 PM CDT 11/01/2023 9:23 PM CDT Alis Burgess PA-C LAB - MICRO GEN ERAL ORDERABLES UU IDD LABORATORY [facility] Inf. Diseases Diag. Lab [address] [facility], [address] [place] [address] * (ABNORMAL) Wet prep (11/01/2023 9:19 PM CDT) Trichomonas Absent Absent [facility] 11/01/2023 9:35 PM CDT LABORATORY Yeast Absent Absent [facility] 11/01/2023 9:35 PM CDT LABORATORY Clue Cells Absent Absent [facility] 11/01/2023 9:35 PM CDT LABORATORY WBCs/high power field 1+(A) None [facility] 11/01/2023 9:35 PM CDT LABORATORY Swab VAGINAL STRUCTURE / Unknown Non-blood Collection / Unknown 11/01/2023 9:19 PM CDT 11/01/2023 9:23 PM CDT Alis Burgess PA-C LAB - MICRO GEN ERAL ORDERABLES LABORATORY [facility] Acute Care Lab [address] Lab (1st floor, no room number) [place] [address] * (ABNORMAL) UA with Microscopic reflex to [...] mg/dL 11/01/2023 7:41 PM CDT LABORATORY Specific [place] Urine 1.015 1.003 - 1.035 11/01/2023 7:41 [...] Burgess PA-C LAB - URINE ORD ERABLES [facility] Acute Care Lab [address] Lab (1st floor, no room number) [place] [address] * US Pelvis Cmplt w Transvag & Doppler LmtPel Duplex Limited (11/01/2023 6:45 PM CDT) Anatomical Region Laterality Modality Abdomen/Pelvis Ultrasound 11/01/2023 6:45 PM CDT Impressions 11/01/2023 6:53 PM CDT IMPRESSION: ?? 1. ??Negative pelvic ultrasound. Small complex follicle in the right ovary, possibly hemorrhagic, requires no follow-up. Narrative 11/01/2023 6:53 PM CDT EXAM: US PELVIS COMPLETE W TRANSVAGINAL AND DOPPLER LIMITED LOCATION: [facility] DATE: 11/01/2023 INDICATION: Pelvic pain COMPARISON: [...] COMPLETE W TRANSVAGINAL AND DOPPLER LIMITED LOCATION: [facility] DATE: 11/01/2023 INDICATION: Pelvic pain COMPARISON: [...] Pathologist [facility] Hold Specimen [facility] 11/01/2023 7:16 PM CDT LABORATORY Blood VENOUS LINE / Unknown Venipuncture / Unknown 11/01/2023 5:53 PM CDT 11/01/2023 6:05 PM CDT Alis Burgess PA-C LAB - BLOOD ORD ERABLES LABORATORY [facility] Acute Care Lab [address] Lab (1st floor, no room number) [place] [phone] * Extra Blue Top Tube (11/01/2023 5:53 PM CDT) Hold Specimen [facility] 11/01/2023 7:16 PM CDT [facility] LABORATORY Blood VENOUS LINE / Unknown Venipuncture / Unknown 11/01/2023 5:53 PM CDT 11/01/2023 6:05 PM CDT Alis Burgess PA-C LAB - BLOOD ORD ERABLES [facility] LABORATORY [facility] Lab [address] Lab (1st floor, no room number) [place] [phone] * CBC with platelets and differential (11/01/2023 5:53 PM CDT) [facility] Signature WBC Count 7.4 4.0 - 11.0 10e3/uL [...] LAB - BLOOD ORD ERABLES RH LABORATORY [facility] Care Lab [address] Lab (1st floor, no room number) [place] [address], [facility] * TSH with free T4 reflex (11/01/2023 5:53 PM CDT) TSH 2.37 0.30 - 4.20 uIU/mL 11/01/2023 6:34 PM CDT [facility] LABORATORY Blood VENOUS LINE / Unknown Venipuncture / Unknown 11/01/2023 5:53 PM CDT 11/01/2023 6:05 PM CDT Alis Burgess PA-C LAB - BLOOD ORD ERABLES [facility] [address] Lab (1st floor, no room number) [place] [address] * Magnesium (11/01/2023 5:53 PM CDT) Magnesium 2.1 1.7 - 2.3 mg/dL 11/01/2023 6:27 PM CDT [facility] LABORATORY Blood VENOUS LINE / Unknown Venipuncture / Unknown 11/01/2023 5:53 PM CDT 11/01/2023 6:05 PM CDT Alis Burgess PA-C LAB - BLOOD ORD ERABLES Performing Organization Address City/[facility]/ZIP Co de Phone Number [facility] [address] Lab (1st floor, no room number) [place] [phone] * Lipase (11/01/2023 5:53 PM CDT) Pathologist [facility] Lipase 34 13 - 60 U/L 11/01/2023 6:27 PM CDT [facility] LABORATORY Blood VENOUS LINE / Unknown Venipuncture / Unknown 11/01/2023 5:53 PM CDT 11/01/2023 6:05 PM CDT Alis Burgess PA-C LAB - BLOOD ORD ERABLES [facility] [address] Lab (1st floor, no room number) [place] [id number] * hCG QUALitative (blood) (11/01/2023 5:53 PM CDT) hCG Serum Qualitative Negative Negative [facility] 11/01/2023 7:11 PM CDT [facility] LABORATORY Comment:This test is for scr eening purposes. Results should be interpreted along with the clinical picture. Confirmation testing is available if warranted by ordering [id number], HCG Quantitative . Blood VENOUS LINE / Unknown Venipuncture / Unknown 11/01/2023 5:53 PM CDT 11/01/2023 6:05 PM CDT Alis Burgess PA-C LAB - BLOOD ORD ERABLES RH LABORATORY [facility] Lab [address] [facility] Lab (1st floor, no room number) [place] [address], [facility] * Comprehensive metabolic panel (11/01/2023 5:53 PM [...] PA-C LAB - BLOOD ORD ERABLES LABORATORY [facility] Lab [address] [facility] Lab (1st floor, no room number) [place] [address] * EKG 12-lead, tracing only (11/01/2023 5:44 PM CDT) Systolic Blood Pressure mmHg RADIOLOGY RESULTS Diastolic Blood Pressure mmHg RADIOLOGY RESULTS Ventricular Rate 46 BPM RAD IOLOGY RESULTS Atrial Rate 46 BPM RADIOLOG Y RESULTS NV Interval 142 ms RADIOLOG Y RESULTS QRS Duration 88 ms RADIOLO GY RESULTS QT 484 ms RADIOLOGY RESULTS QTc 423 ms RADIOLOGY RESULTS P [place] 27 degrees RADIOLOGY RESULTS R AXIS 69 degrees RADIOLOGY RESULTS T [place] 22 degrees RADIOLOGY RESULTS Interpretation ECG Sinus bradycardia with sinus arrhythmia Otherwise normal ECG When compared with ECG of 09-Oct-2020 17:48, Nonspecific T wave abnormality no longer evident in Anterior leads Confirmed by - EMERGENCY ROOM, PHYSICIAN ([id number]), technical editor MONISHA WEAVER (Doug) on 11/02/2023 7:30:44 [...] Noted Time PHQ-9 Depression Total Score: 11 1114/2 019 9:38 AM COMPUTATIONAL MATHEMATICIAN documented as of this encounter Care Teams Senior Project Architect Relationship Specialty Start Date End Date [facility]- [address] [place] [address] PCP - General 11/01/23 documented as of this encounter
--- OUTSIDE RECORDS SUMMARY | 2023-11-06 13:37 | XMS_ITS | Encounter Summary ---
Author Organization [facility] Address [address] [place] [address] Care Team Providers Care Drums Teacher Name Role Phone No Ref-Primary, Physician Primary Care Provider Inga Ibarra DO Unavailable [phone] Dottie Lucas MD Unavailable + Elva Ramos APRN Unavailable [phone] Inga Ibarra DO Unavailable [phone] Nicolasa Sapp MD Unavailable [phone] [facility]- Primary Care Provider Elias Kendrick MD Unavailable [phone] Alis Burgess PA-C Unavailable [phone] Encounter Details Date Type Department Care Team [...] Description 11/10/2023 11:00 AM CDT Office Visit [facility] Neurology Clinic [place] [address] [place] [address] Alis Burgess, PAAndersC [facility] [address] [facility] [address] [place] [address] Elias Kendrick MD [address] [place] [address] documented as of this encounter Visit Diagnoses Not on filedocumented in this encounter Additional Health Concerns Infection Onset Date Last Indicated Resolved Time Rule Out COVID-19 12/17/2019 12/17/2019 12/18/2019 6:16 PM CDT documented as of this encounter Care Teams Drums Teacher Relationship Specialty Start Date End Date No Ref-Primary, Physician PCP - General 02/23/14 10/31/23 [facility]- [address] [place] [address] PCP - General 11/01/23 Inga Ibarra DO [address] [place] [address] Assigned OBGYN Provider 01/06/20 Dottie Lucas MD [address] [place] [address] Assigned OBGYN Provider 06/10/20 Elva Clarke APRN CNM [address] [place] [address] Assigned OBGYN Provider 07/01/20 Inga Ibarra DO [address] [facility] 100 [place] [address] Assigned OBGYN Provider 06/17/20 Nicolasa Sapp MD [address], [facility] 100 [place] [address] Assigned OBGYN Provider 11/11/20 Elias Kendrick MD [address] [facility] [address] [place] [address] Neurology 11/02/23 Alis Burgess, PADuncan [facility] [address] [facility] 100 [place] [address] Physician Human Resources Operations Coordinator Emergency Medicine 11/02/23 documented as of this encounter
--- OUTSIDE RECORDS SUMMARY | 2023-11-06 13:37 | XMS_ITS | Encounter Summary ---
Author Organization [facility] Address [address] [place] [address] Care Team Providers Care Health Consultant Name Role Phone No Ref-Primary, Physician Primary Care Provider Elva Ramos APRN Unavailable [phone] Nicolasa Sapp MD Unavailable [phone] [facility]- Primary Care Provider Elias Kendrick MD Unavailable [phone] Alis Burgess PA-C Unavailable [phone] Encounter Details Date Type Department Care Team (Late st Contact Info) Description 11/05/2020 [facility] [address] [place] [address] Nicolasa Sapp MD [address], [address] [place], [place] [address] Social History Tobacco Use Types Packs/Day Years Used Date Smoking Tobacco: Never Smokeless Tobacco: Never Alcohol Use Standard Drinks/Week Comments No 0 (1 standard drink = 0.6 oz pur e alcohol) PHQ-2 Answer Date Recorded PHQ-2 Score 1 10/16/2020 Isabel Depression Scale Answer Date Recorded Isabel Depression Score 8 12/17/2018 Last EPDS Self [...] Orientation Straight 11/05/2023 9: 30 AM CDT COVID-19 Exposure Response Date Recorded [...] [facility] Neurology Clinic [address] [phone] Alis Burgess, MATT-C [facility] [address] [facility] [address] [place] [address] Elias Kendrick MD [address] [place] [address] 200 [place] [address] documented as of this encounter Visit Diagnoses Not on filedocumented in this encounter Additional Health Concerns Assessment Noted Time PHQ-9 Depression Total Score: 11 019 9:38 AM IS MANAGER documented as of this encounter Care Teams Health Consultant Relationship Specialty Start Date End Date No Ref-Primary, Physician PCP - General 02/23/14 10/31/23 [facility]- [address] [place] [address] PCP - General 11/01/23 Elva Ramos APRN CNM [address] [facility] 100 [place] [address] Assigned OBGYN Provider 07/01/20 Nicolasa Sapp MD [address] [facility] 100 [place] [address] Assigned OBGYN Provider 11/11/20 Elias Kendrick MD [address] [facility] 200 [place] [address] Neurology 11/02/23 Alis Burgess, PAAndersC [facility] [address] [facility] 100 [place] [address] Physician Shell Grader Emergency Medicine 11/02/23 documented as of this encounter
--- OUTSIDE RECORDS SUMMARY | 2023-11-06 13:37 | XMS_ITS | Encounter Summary ---
Author Organization [facility] Address [address] [place] [address]. [place] [address] Care Team Providers Care Supervisor Steno Pool Name Role Phone No Ref-Primary, Physician Primary Care Provider Elva Ramos APRN, CNM Unavailable [phone] Nicolasa Sapp MD Unavailable [phone] [facility]- Primary Care Provider Elias Kendrick MD Unavailable [phone] Alis Burgess PA-C Unavailable [phone] Encounter Details Date Type Department Care Team (Late st Contact Info) Description 10/16/2020 MyC Medical Advice [facility] [address] [place] [address] [address] [place] [address] Nancy Howell RN Social History [...] Description 11/10/2023 11:00 AM CDT Office Visit [facility] Neurology Clinic [place] [address] [place] [address] [address] [place] [phone] Alis Burgess, PA-C [facility] [address] [facility] 100 [place] [address] Elias Kendrick MD [address] [place] [address] documented as of this encounter Visit Diagnoses Not on filedocumented in this encounter Additional Health Concerns Assessment Noted Time PHQ-9 Depression Total Score: 11 01/27/2 019 9:38 AM MACHINE SANDER documented as of this encounter Care Teams Supervisor Steno Pool Relationship Specialty Start Date End Date No Ref-Primary, Physician PCP - General 02/23/14 10/31/23 [facility]- [address] [place] [address] PCP - General 11/01/23 Elva Ramos APRN CNM [address] [facility] 100 [place] [address] Assigned OBGYN Provider 07/01/20 Nicolasa Sapp MD [facility] [address] [place] [address] Assigned OBGYN Provider 11/11/20 Elias Kendrick MD [address] [place] [address] Neurology 11/02/23 Alis Burgess, BULMARO [facility] [address] [facility] 100 [place], [place] [address] Physician Information Engineer Emergency Medicine 11/02/23 documented as of this encounter
--- OUTSIDE RECORDS SUMMARY | 2023-11-06 13:37 | XMS_ITS | Encounter Summary ---
Author Organization [facility] Address [address] [place] [address] Care Team Providers Care Product Safety Lead Name Role Phone No Ref-Primary, Physician Primary Care Provider Elva Ramos APRN Unavailable [phone] Nicolasa Sapp MD Unavailable [phone] [facility]- Primary Care Provider Elias Kendrick MD Unavailable [phone] Alis Burgess PA-C Unavailable [phone] Encounter Details Date Type Department Care Team (Late st Contact Info) Description 10/02/2020 MyC Medical Advice [address] [address] Nicole Garcia, [facility] Social History Tobacco Use Types Packs/Day Years Used Date Smoking Tobacco: Never Smokeless Tobacco: Never Alcohol Use Standard Drinks/Week Comments No 0 (1 standard drink = 0.6 oz pur e alcohol) PHQ-2 Answer Date Recorded PHQ-2 Score 0 03/03/2019 Ramona Depression Scale Answer Date Recorded Ramona Depression Score 8 12/17/2018 Last EPDS Self [...] Description 11/10/2023 11:00 AM CDT Office Visit [facility] Neu[facility] [place] [address] [facility] [address] [place] [phone] Alis Burgess, PA-C [facility] [address] [facility] 100 [place] [address] Elias Kendrick MD [address] [facility] 200 [place] [address] documented as of this encounter Visit Diagnoses Not on filedocumented in this encounter Additional Health Concerns Assessment Noted Time PHQ-9 Depression Total Score: 11 019 9:38 AM EMERGENCY ROOM NURSE documented as of this encounter Care Teams Product Safety Lead Relationship Specialty Start Date End Date No Ref-Primary, Physician PCP - General 02/23/14 10/31/23 [facility]- [address] [place] [address] PCP - General 11/01/23 Elva Ramos APRN CNM [address] [facility] [facility] [address] [place] [address] Assigned OBGYN Provider 07/01/20 Nicolasa Sapp MD [address] [facility] 100 [place] [address] Assigned OBGYN Provider 11/11/20 Elias Kendrick MD [address] [place] [address] Neurology 11/02/23 Alis Burgess, PAAndersC [facility] [address] [place] [address] Physician Extractive Metallurgist Emergency Medicine 11/02/23 documented as of this encounter
--- OUTSIDE RECORDS SUMMARY | 2023-11-06 13:37 | XMS_ITS | Encounter Summary ---
Author Organization [facility] Address [address] [place] [address]. [place] [address] Care Team Providers Care Service Mechanic Name Role Phone No Ref-Primary, Physician Primary Care Provider Inga Ibarra DO Unavailable [phone] Dottie Lucas MD Unavailable + Elva Ramos APRN CN Unavailable [phone] Inga Ibarra DO Unavailable [phone] Nicolasa Sapp MD Unavailable [phone] [facility]- Primary Care Provider Elias Kendrick MD Unavailable [phone] Alis Burgess PA-C Unavailable [phone] Reason for Visit * Reason Onset Date Comments Innatal insurance coverage 06/03/2018 [facility] coverage for Innatal testing Encounter Details Date Type Department Care Team (Late st Contact Info) Description 06/03/2018 Telephone [facility] [place] [address] [facility] [address] [place] [address] Le Maya APRN [facility] [address] [facility] 100 [place] [address] Innatal insurance coverage (questioning ins coverage for [...] later. Encouraged pt to call Carl at [facility] to explain the situation and ask for guidance. Info/phone number given to pt. All other OB labs drawn today. PT seems unconcerned with delaying Innatal test, she is comfortable with the plan to investigate and possibly draw later. documented in this encounter Plan of Treatment Upcoming Encounters Date Type Department Care Team (Late st Contact Info) Description 11/10/2023 11:00 AM CDT Office Visit [facility] Neurology Clinic [address] [place] [phone] Alis Burgess PA-C [facility] [address] [facility] 100 [place] [address] [place] [address] [place] [address] 200 [place] [address] documented as of this encounter Visit Diagnoses Not on filedocumented in this encounter Additional Health Concerns Infection Onset Date Last Indicated Resolved Time Rule Out COVID-19 12/17/2019 12/17/2019 12/18/2019 6:16 PM CDT documented as of this encounter Care Teams Service Mechanic Relationship Specialty Start Date End Date No Ref-Primary, Physician PCP - General 02/23/14 10/31/23 [facility]- [address], [place] [address] PCP - General 11/01/23 Inga Ibarra DO [address] [place], [place] [address] Assigned OBGYN Provider 01/06/20 Dottie Lucas MD [address] [place], [place] [address] Assigned OBGYN Provider 06/10/20 Elva Clarke APRN CN [address] [place], [place] [address] Assigned OBGYN Provider 07/01/20 Inga Ibarra DO [address] [place], [place] [address] Assigned OBGYN Provider 06/17/20 Nicolasa Sapp MD [address] [place], [place] [address] Assigned OBGYN Provider 11/11/20 Elias Kendrick MD [address] [place] [address] Neurology 11/02/23 Alis Burgess PA-C [facility] [address] [place] [address] Physician Network/Telecom Engineer Emergency Medicine 11/02/23 documented as of this encounter
--- OUTSIDE RECORDS SUMMARY | 2023-11-06 13:37 | XMS_ITS | Referral Summary ---
Author Organization [place] Address [address] [place] [address] Care Team Providers Care Slagger Name Role Phone [facility]- Primary Care Provider Elias Kendrick MD Unavailable Alis Burgess PA-C Unavailable [phone] Encounters Date Type Department Care Team Description 11/05/2023 Travel 11/01/2023 Travel 11/01/2023 4:30 PM CDT - 11/01/2023 10:07 PM CDT [facility] Emergency Dept [address] [place] [address] [phone] Alis Burgess PA-C Abdominal pain; Vaginal bleeding; Lightheadedness; Transient disorientation Discharge Disposition: Home or Self Care from Last 3 Months Allergies Active Allergy Reactions Criticality Noted Date Comments Cat Hair Extract 10/06/2012 Cockroach 10/06/2012 Dust Mite Extract 10/06/2012 Nuts Nausea and Vomiting,Shortness Of Breath High 10/23/2018 Other reaction(s): Dizziness Peanut (Diagnostic) Shortness Of Breath High [address] [place] Oil Shortness Of Breath High 05/06/2018 Other reaction(s): Edema Medications Medication Sig Dispensed Refills Start Date End Date Status EPINEPHrine (EPIPEN/ADRENACLICK/ OR ANY BX GENERIC EQUIV) 0.3 MG/0.3ML injection 2-pack INJECT 1 PEN UTD FOR ALLERGIC REACTION UTD 3 06/01/2017 Active Prenat w/o L-PF-Jxxsyzm-FA-DHA (PNV-DHA) 27-0.6-0.4-300 MG CAPSIndications:Preg dom Take 1 [...] Answer Date Recorded PHQ-2 Score 1 10/16/2020 [place] Depression Scale Answer Date Recorded [place] Depression Score 8 12/17/2018 Last EPDS Self [...] Description 11/10/2023 11:00 AM CDT Office Visit [facility] [place] [address] [place] [phone] Alis Burgess PA-C [facility] [address] [place] [address] Elias Kendrick MD [address] [place] [address] Procedures Procedure Name Priority Date/Time Associated Diagnosis [...] THIN LAYER SCREEN Routine 01/27/2019 9:50 AM DIGITAL DESIGNER Screening for cervical cancer Routine follow-up from [...] LAB - MICRO GEN ERAL ORDERABLES LABORATORY [facility] Acute Care Lab [address] Lab (1st floor, no room number) [place] [address] * Neisseria gonorrhoeae PCR (11/01/2023 9:19 PM CDT) Neisseria gonorrhoeae Negative Negative 11/02/2023 9:44 AM CDT [facility] Comment:Negative for N. gono rrhoeae rRNA by crystal mounter mediated amplification. A negative result by crystal mounter mediated amplification does not preclude the presence of C. trachomatis infection because results are dependent on proper and adequate collection, absence of inhibitors and sufficient rRNA to be detected. Swab VAGINAL STRUCTURE / Unknown Non-blood Collection / Unknown 11/01/2023 9:19 PM CDT 11/01/2023 9:23 PM CDT Alis Burgess PA-C LAB - MICRO GEN ERAL ORDERABLES [facility] Inf. Diseases Diag. Lab [address] [facility], [address] [place] [address] * (ABNORMAL) UA with Microscopic reflex to [...] 11/01/2023 7:41 PM CDT [facility] LABORATORY Specific [place] Urine 1.015 1.003 - 1.035 11/01/2023 7:41 [...] Burgess PA-C LAB - URINE ORD ERABLES [facility] Acute Care Lab [address] [facility] Lab (1st floor, no room number) [place] [address] * US Pelvis Cmplt w Transvag & Doppler LmtPel Duplex Limited (11/01/2023 6:45 PM CDT) Anatomical Region Laterality Modality Abdomen/Pelvis Ultrasound 11/01/2023 6:45 PM CDT Impressions 11/01/2023 6:53 PM CDT IMPRESSION: ?? 1. ??Negative pelvic ultrasound. Small complex follicle in the right ovary, possibly hemorrhagic, requires no follow-up. Narrative 11/01/2023 6:53 PM CDT EXAM: US PELVIS COMPLETE W TRANSVAGINAL AND DOPPLER LIMITED LOCATION: [facility] DATE: 11/01/2023 INDICATION: Pelvic pain COMPARISON: None. [...] COMPLETE W TRANSVAGINAL AND DOPPLER LIMITED LOCATION: [facility] DATE: 11/01/2023 INDICATION: Pelvic pain COMPARISON: None. [...] hemorrhagic, requires no follow-up. Alis Burgess PA-C IM US ORDERABL ES * Extra Blood Bank Purple Top Tube (11/01/2023 5:53 PM CDT) Pathologist [facility] Hold Specimen [facility] 11/01/2023 7:16 PM CDT LABORATORY Blood VENOUS LINE / Unknown Venipuncture / Unknown 11/01/2023 5:53 PM CDT 11/01/2023 6:05 PM CDT Alis Burgess PA-C LAB - BLOOD ORD ERABLES [facility] Acute Care Lab [address] Lab (1st floor, no room number) [place] [address] * Extra Blue Top Tube (11/01/2023 5:53 PM CDT) Hold Specimen [facility] 11/01/2023 7:16 PM CDT [facility] LABORATORY Blood VENOUS LINE / Unknown Venipuncture / Unknown 11/01/2023 5:53 PM CDT 11/01/2023 6:05 PM CDT Alis Burgess PA-C LAB - BLOOD ORD ERABLES LABORATORY [facility] Care Lab [address] Lab (1st floor, no room number) [place] [phone] * CBC with platelets and differential (11/01/2023 5:53 PM CDT) [facility] Signature WBC Count 7.4 4.0 - 11.0 [...] LAB - BLOOD ORD ERABLES [facility] LABORATORY [facility] Acute Care Lab [address] Lab (1st floor, no room number) [place] [address], [facility] * TSH with free T4 reflex (11/01/2023 5:53 PM CDT) TSH 2.37 0.30 - 4.20 uIU/mL 11/01/2023 6:34 PM CDT [facility] LABORATORY Blood VENOUS LINE / Unknown Venipuncture / Unknown 11/01/2023 5:53 PM CDT 11/01/2023 6:05 PM CDT Alis Burgess PA-C LAB - BLOOD ORD ERABLES [facility] Care Lab [address] Lab (1st floor, no room number) [place] [address] * Magnesium (11/01/2023 5:53 PM CDT) Magnesium 2.1 1.7 - 2.3 mg/dL 11/01/2023 6:27 PM CDT [facility] LABORATORY Blood VENOUS LINE / Unknown Venipuncture / Unknown 11/01/2023 5:53 PM CDT 11/01/2023 6:05 PM CDT Alis Burgess PA-C LAB - BLOOD ORD ERAJUAN [facility] Acute Care Lab [address] Lab (1st floor, no room number) [place] [address] * Lipase (11/01/2023 5:53 PM CDT) Lipase 34 13 - 60 U/L 11/01/2023 6:27 PM CDT [facility] LABORATORY Blood VENOUS LINE / Unknown Venipuncture / Unknown 11/01/2023 5:53 PM CDT 11/01/2023 6:05 PM CDT Alis Burgess PA-C LAB - BLOOD ORD ERAJUAN [facility] Care Lab [address] Lab (1st floor, no room number) [place] [address] * hCG QUALitative (blood) (11/01/2023 5:53 PM CDT) hCG Serum Qualitative Negative Negative [facility] 11/01/2023 7:11 PM CDT [facility] LABORATORY Comment:This test is for scr eening purposes. Results should be interpreted along with the clinical picture. Confirmation testing is available if warranted by ordering [id number], HCG Quantitative . Blood VENOUS LINE / Unknown Venipuncture / Unknown 11/01/2023 5:53 PM CDT 11/01/2023 6:05 PM CDT Alis Burgess PA-C LAB - BLOOD ORD ERABLES LABORATORY [facility] Care Lab [address] [facility] Lab (1st floor, no room number) [place] [address] * Comprehensive metabolic panel (11/01/2023 5:53 PM [...] PM CDT [facility] LABORATORY Comment:eGFR calculated usin 2020 CKD-EPI equation. Calcium 8.8 8.8 - [...] LAB - BLOOD ORD ERABLES RH LABORATORY [facility] Care Lab [address] [facility] Lab (1st floor, no room number) [place] [address] * EKG 12-lead, tracing only (11/01/2023 5:44 PM CDT) Systolic Blood Pressure mmHg RADIOLOGY RESULTS Diastolic Blood Pressure mmHg RADIOLOGY RESULTS Ventricular Rate 46 BPM RAD IOLOGY RESULTS Atrial Rate 46 BPM RADIOLOG Y RESULTS SD Interval 142 ms RADIOLOG Y RESULTS QRS Duration 88 ms RADIOLO GY RESULTS QT 484 ms RADIOLOGY RESULTS QTc 423 ms RADIOLOGY RESULTS P [place] 27 degrees RADIOLOGY RESULTS R AXIS 69 degrees RADIOLOGY RESULTS T [place] 22 degrees RADIOLOGY RESULTS Interpretation ECG Sinus bradycardia with sinus arrhythmia Otherwise normal ECG When compared with ECG of 09-Oct-2020 17:48, Nonspecific T wave abnormality no longer evident in Anterior leads Confirmed by - EMERGENCY ROOM, PHYSICIAN ([id number]), editor newspaper MONISHA WEAVER (Doug) on 11/02/2023 7:30:44 AM [...] Sapp MD LAB - BLOOD ORDER [facility] Specialty Core Lab [address] [facility], [address] [address], [facility] [phone] * Hepatitis C antibody (10/24/2020 1:14 PM CDT) [facility] Hepatitis C Antibody Nonreactive Nonreactive 10/25/2020 11:19 AM CDT [facility] Blood STRUCTURE OF RIGHT UPPER LIMB / Unknown Venipuncture / Unknown 10/24/2020 1:14 PM CDT 10/24/2020 1:15 PM CDT Narrative [facility] - 10/25/2020 11:19 AM CDT Assay performance characteristics have not been established for newborns, infants, and children. Nicolasa Sapp MD LAB - BLOOD ORDER [facility] Specialty Core Lab [address] [facility], [address] [address], [facility] [phone] * Pap imaged thin layer screen only - recommended age 21 - 24 years (01/27/2019 9:50 AM DIGITAL DESIGNER) PAP NIL COPATH Copath Report Patient Name: JOVANY DELAROSA MR#: [id number] Specimen #: [id number] Collected: 01/27/2019 Received: 01/28/2019 Reported: 02/02/2019 10:22 [...] adenocarcinomas or other cancers. COLLECTION SITE: Client: ??[facility] Location: [place]IL[place] (S) The technical component of this testing was completed at the [facility], with the professional component performed at the [facility], [address] [place] [phone] ([phone]) COPATH Cytologic material (specimen) 01/27/2019 9:50 AM DIGITAL DESIGNER 01/28/2019 9:39 AM DIGITAL DESIGNER Yesi Ibarra DO LAB - OPTIME CL INICAL SPECIMEN COPATH from Last 3 Months or Most Recently Relevant to Health Maintenance Care Teams Slagger Relationship Specialty Start Date End Date [facility]- [address] [place] [address] PCP - General 11/01/23 Elias Kendrick MD [address] [place] [address] Neurology 11/02/23 Alis Burgess, PAAndersC [facility] [address] [place] [address] Physician Human Factors Advisor Lead Emergency Medicine 11/02/23
== END 2023-11-06 13:35 | disposition home or self-care (01) ==
LOC: NFLDREF 13:35
PROVIDERS: Visit Provider Obstetrics & Gynecology
DX: N92.0 Excessive and frequent menstruation with regular cycle (principal)
CPT/HCPCS: 84146

== ENCOUNTER 2024-02-01 08:50 | Outpatient (CLI) | payer OTHER, SELFPAY | END 2024-02-01 08:51 | disposition home or self-care (01) | LOC: RAD 08:51 | PROVIDERS: PCP Emergency Medicine; Visit Provider Internal Medicine | DX: R00.2 Palpitations (principal) | CPT/HCPCS: 93306 ==

== ENCOUNTER 2024-05-13 18:59 | Outpatient (CLI) | payer OTHER, SELFPAY | END 2024-05-13 19:00 | disposition home or self-care (01) | LOC: NFLDUCREF 19:00 | PROVIDERS: PCP Emergency Medicine; Visit Provider Nurse Practitioner Family | DX: R82.90 Unspecified abnormal findings in urine (principal) | CPT/HCPCS: 87086 ==

== ENCOUNTER 2024-05-27 19:08 | Emergency (ER) | payer OTHER, SELFPAY ==
--- OUTSIDE RECORDS SUMMARY | 2024-05-27 19:11 | XMS_ITS | Encounter Summary ---
Author Organization [place] Address [address] [place] [address] Care Team Providers Care Residential Worker Name Role Phone No Ref-Primary, Physician Primary Care Provider Inga Ibarra DO Unavailable [phone] Dottie Lucas MD Unavailable + Elva Ramos APRN Unavailable [phone] Inga Ibarra DO Unavailable [phone] Nicolasa Sapp MD Unavailable [phone] [facility]- Primary Care Provider Elias Kendrick MD Unavailable [phone] Alis Burgess PA-C Unavailable [phone] Elias Kendrick MD Unavailable + [phone] Encounter Details Date Type Department Care Team (Late st Contact Info) Description 06/25/2013 Records - [facility] CONVERSION Scan, Non-Provider Social History Tobacco Use Types Packs/Day Years Used Date Smoking Tobacco: Never Assessed Comments Unknown Sex and Gender Information Value Date Recorded Sex Assigned at Female 10/01/2020 10:47 AM CDT Legal Sex Female 10:30 AM CDT Gender Identity Female 10/01/2020 10:47 [...] documented as of this encounter Care Teams Residential Worker Relationship Specialty Start Date End Date No Ref-Primary, Physician PCP - General 02/23/14 10/31/23 [facility]- [address] [place] [address] PCP - General 11/01/23 Inga Ibarra DO [address] [place], [place] [address] Assigned OBGYN Provider 01/06/20 Dottie Lucas MD [address] [place], [place] [address] Assigned OBGYN Provider 06/10/20 Elva Clarke APRN [facility] [address] [place], [place] [address] Assigned OBGYN Provider 07/01/20 sInga DO [address] [place], [place] [address] Assigned OBGYN Provider 06/17/20 Nicolasa Sapp MD [address], [address] [place], [place] [address] Assigned OBGYN Provider 11/11/20 Elias Kendrick MD [address] [place] [address] Neurology 11/02/23 Alis Burgess PA-C [facility] [place] [address] [facility] [address] [place] [address] Physician Psychiatric Clinical Nurse Specialist Emergency Medicine 11/02/23 Elias Kendrick MD [address] [place] [address] Assigned Neuroscience Provider 12/07/23 documented as of this encounter
--- OUTSIDE RECORDS SUMMARY | 2024-05-27 19:11 | XMS_ITS | Encounter Summary ---
Author Organization [place] Address [address] [place] [address] Care Team Providers Care Computer Operations Analyst Name Role Phone No Ref-Primary, Physician Primary Care Provider Elva Ramos APRN, CNM Unavailable [phone] Nicolasa Sapp MD Unavailable [phone] [facility]- Primary Care Provider Elias Kendrick MD Unavailable + [phone] Alis Burgess PA-C Unavailable [phone] Elias Kendrick MD Unavailable + [phone] Encounter Details Date Type Department Care Team (Late st Contact Info) Description 10/02/2020 MyC Medical Advice [address] [phone] Nicole Garcia, CARTON FORMING MACHINE OPERATOR Social History Tobacco Use Types Packs/Day Years Used Date Smoking Tobacco: Never Smokeless Tobacco: Never Alcohol Use Standard Drinks/Week Comments No 0 (1 standard drink = 0.6 oz pur e alcohol) PHQ-2 Answer Date Recorded PHQ-2 Score 0 03/03/2019 [place] Depression Scale Answer Date Recorded [place]ie Depression Score 8 12/17/2018 Last EPDS Self Harm Result Not on file 12/17 Comments No Sex and Gender Information Value Date Recorded [...] Total Score: 11 01/27/2 019 9:38 AM LUBRICATION TECHNICIAN documented as of this encounter Care Teams Computer Operations Analyst Relationship Specialty Start Date End Date No Ref-Primary, Physician PCP - General 02/23/14 10/31/23 [facility]- [address], [place] [address] PCP - General 11/01/23 Elva Ramos APRN CNM [address] [address] Assigned OBGYN Provider 07/01/20 Nicolasa Sapp MD [address] [address] Assigned OBGYN Provider 11/11/20 Elias Kendrick MD [address] [place] [address] Neurology 11/02/23 Alis Burgess PA-C [facility] [address] [address] Physician Chemical Laboratory Scientist Emergency Medicine 11/02/23 Elias Kendrick MD [address] [place] [address] Assigned Neuroscience Provider 12/07/23 documented as of this encounter
--- OUTSIDE RECORDS SUMMARY | 2024-05-27 19:11 | XMS_ITS | Encounter Summary ---
Author Organization [place] Address [address] [place] [address]. [place] [address] Care Team Providers Care Marine Structural Designer Name Role Phone No Ref-Primary, Physician Primary Care Provider Inga Ibarra DO Unavailable [phone] Dottie Lucas MD Unavailable + Elva Ramos APRN CN Unavailable [phone] Inga Ibarra DO Unavailable [phone] Nicolasa Sapp MD Unavailable [phone] [facility]- Primary Care Provider Elias Kendrick MD Unavailable + [phone] Alis Burgess PA-C Unavailable [phone] Elias Kendrick MD Unavailable + [phone] Reason for Visit * Reason Onset Date Comments Innatal insurance coverage 06/03/2018 [facility] ins coverage for Innatal testing Encounter Details Date Type Department Care Team (Late st Contact Info) Description 06/03/2018 Telephone [facility] [place] [address] [facility] [address] [place] [address] Le aMya APRN [facility] [address] [facility] [address] [place] [address] Innatal insurance coverage (questioning ins coverage [...] later. Encouraged pt to call Carl at [facility] to explain the situation and ask for [...] as of this encounter Care Teams Marine Structural Designer Relationship Specialty Start Date End Date No Ref-Primary, Physician PCP - General 02/23/14 10/31/23 [facility]- [address] [place] [address] PCP - General 11/01/23 MastersInga DO [address] [place] [address] Assigned OBGYN Provider 01/06/20 Dottie Lucas MD [address] [place] [address] Assigned OBGYN Provider 06/10/20 Elva Clarke APRN CN [address] [place] [address] Assigned OBGYN Provider 07/01/20 MastersInga DO [address] [place], [place] [address] Assigned OBGYN Provider 06/17/20 Nicolasa Sapp MD [address], [address] [place] [address] Assigned OBGYN Provider 11/11/20 Elias Kendrick MD [address] [place] [address] Neurology 11/02/23 Alis Burgess PA-C [facility] [address] [facility] [place] [address] Physician Director Product Emergency Medicine 11/02/23 Elias Kendrick MD [address] [place] [address] Assigned Neuroscience Provider 12/07/23 documented as of this encounter
--- OUTSIDE RECORDS SUMMARY | 2024-05-27 19:11 | XMS_ITS | Encounter Summary ---
Author Organization [place] Address [address] [place] [address] Care Team Providers Care Computer Training Specialist Name Role Phone No Ref-Primary, Physician Primary Care Provider Elva Ramos APRN, CNM Unavailable [phone] Nicolasa Sapp MD Unavailable [phone] [facility]- Primary Care Provider Elias Kendrick MD Unavailable + [phone] Alis Burgess PA-C Unavailable [phone] Elias Kendrick MD Unavailable + [phone] Encounter Details Date Type Department Care Team (Late st Contact Info) Description 10/16/2020 MyC Medical Advice [facility] [address] [facility] [address] [place] [phone] Nancy Howell, RN Social History Tobacco Use Types Packs/Day Years Used Date Smoking Tobacco: Never Smokeless Tobacco: Never Alcohol Use Standard Drinks/Week Comments No 0 (1 standard drink = 0.6 oz pur e alcohol) PHQ-2 Answer Date Recorded PHQ-2 Score 1 10/16/2020 [place] Depression Scale Answer Date Recorded [place] Depression Score 8 12/17/2018 Last EPDS Self [...] Orientation Straight 11/05/2023 9: 30 AM CDT 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 Not on file Not on file COVID-19 Exposure Response Date Recorded In the [...] Total Score: 11 01/27/2 019 9:38 AM REGISTERED NURSE CARDIAC TELEMETRY documented as of this encounter Care Teams Computer Training Specialist Relationship Specialty Start Date End Date No Ref-Primary, Physician PCP - General 02/23/14 10/31/23 [facility]- [address] [place] [address] PCP - General 11/01/23 Elva Ramos APRN CNM [address] [place] [address] Assigned OBGYN Provider 07/01/20 Nicolasa Sapp MD [address], [address] [place] [address] Assigned OBGYN Provider 11/11/20 Elias Kendrick MD [address] [place] [address] Neurology 11/02/23 Alis Burgess PA-C [facility] [address] [place], [place] [address] Physician Movable Bulkhead Installer Emergency Medicine 11/02/23 Elias Kendrick MD [address] [place] [address] Assigned Neuroscience Provider 12/07/23 documented as of this encounter
--- OUTSIDE RECORDS SUMMARY | 2024-05-27 19:11 | XMS_ITS | Clinical Summary ---
Author Organization [facility] Address [address] [place] [address] Care Team Providers Care Radio Program Director Name Role Phone [facility], [facility]- Primary Care Provider Elias Kendrick MD Unavailable + [phone] Alis Burgess PA-C Unavailable [phone] Elias Kendrick MD Unavailable + [phone] Allergies Active Allergy Reactions Criticality Noted Date Comments Cat Dander 10/06/2012 Cockroach 10/06/2012 Dust Mite Extract 10/06/2012 Nuts Nausea and Vomiting,Shortness Of Breath High 10/23/2018 Other reaction(s): Dizziness Peanut (Diagnostic) Shortness Of Breath High 014 Endeavor Oil Shortness Of Breath High 05/06/2018 Other reaction(s): Edema Medications No known medications Active Problems Problem Noted Date Diagnosed Date Indication for care in labor or delivery 019 12/15/2018 (normal spontaneous vaginal delivery) 12/15 Nausea 12/02/2018 Encounter for triage in patient 019 Vaginal bleeding 10/30/2018 Echogenic focus of heart of fetus affecting antepartum care of mother, single gestation 08/14/2018 Low lying placenta nos or wi thout hemorrhage, second trimester 08/14/2018 Amenorrhea 07/21/2018 Overview (07/21/2018): Overview: Created by Conversion Antidepressants causing adverse effect in therap eutic use 07/21/2018 Overview (07/21/2018): Overview: Created by Conversion Excessive or frequent menstruation 07/21/2018 Overview (07/21/2018): Overview: Created by Conversion Major depression, single episode 07/21/2018 Overview (07/21/2018): Overview: Created by Conversion Migraine headache 07/21/2018 Overview (07/21/2018): Overview: Created by Conversion Replacement Utility updated for latest IMO load Allergic rhinitis 07/19/2018 Overview (07/19/2018): Overview: Created by Conversion Replacement Utility updated for latest IMO load Supervision of normal IUP (i ntrauterine ) in primigravida 06/03/2018 Overview (10/11/2018): EDC 12/25/18 by L=first tri US. GIRL FOB: Ruslan Innatal: yes, AFP neg Flu: done Tdap: 10/11 hx: PTSD, anx/dep, cutting, conduct disorder LL placenta. ECIF. Repeat US 28-32wk. 1 Hr GCT/Hgb: passed 103, 10.8 Nut allergy 05/06/2018 Overview (07/19/2018): Overview: Created by Conversion Anxiety and depression 05/06/2018 Immunizations Name Administration Dates Next Due HPV Quadrivalent 06/08/2012,01/20/2012, 2 HepB, Unspecified 06/01/1998,02/20/1998,12/09/18 98 Influenza Vaccine >6 months,quad, PF 12/06/2018, 05/06/2018 Influenza Vaccine, 6+MO IM ( QUADRIVALENT W/PRESERVATIVES) 05/06/2017 MMR (MMRII) 11/13/2011,09/11/2003,11/30/1998 Meningococcal ACWY (Menactra ) 12/07/2012 TDAP Vaccine (Adacel) 10/11/2018,10/09/2010 Varicella (Varivax) 11/13/2011,10/09/2010,1998 Family History Medical History Relation Comments Diabetes [...] Answer Date Recorded PHQ-2 Score 1 10/16/2020 [place] Depression Scale Answer Date Recorded [place] Depression Score 8 12/17/2018 Last EPDS Self Harm Result Not on file 12/17 Adolescent Education Answer Date Record ed Getting School Help Needed Not on file 12/05 Education Answer Date Recorded What is the highest level of school you have completed or the highest degree you have received? 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 on file Not on file Last Filed Vital Signs Vital Sign Reading Time Taken Comments Blood Pressure 108/59 11/10/2023 10:57 AM CDT Pulse 44 11/10/2023 10:57 AM CDT Temperature 36.6 C (97.8 F) 11/01/2023 4:29 PM CDT Respiratory Rate 18 11/01/2023 4:29 PM CDT Oxygen Saturation 100% 11/01/2023 8:24 PM CDT Inhaled Oxygen Concentration - - Weight 75.8 kg (167 lb) 11/10/2023 10:57 AM CDT Height 157.5 cm (5' 2) 11/10/2023 10:57 AM CDT Body Mass Index 30.54 11/10/2023 10:57 AM CDT Plan of Treatment Health Maintenance Due Date Last Done Comments ADVANCE CARE PLANNING 1997 ANNUAL REVIEW OF HM ORDERS 1997 DEPRESSION ACTION PLAN 1997 YEARLY PREVENTIVE VISIT 08/20/2017 08/21/19 17, 08/20/2016, 06/06/2015, Additional history exists PHQ-9 07/28/2019 01/27/2019, 12/30/2018 COVID-19 Vaccine ( season) 2023 INFLUENZA VACCINE (#1) 2023 3, 12/06/2018, 05/06/2018, Additional history exists PAP 05/16/2025 05/16/2022, 01/27/2019 DTAP/TDAP/TD IMMUNIZATION (9 - Td or Tdap) 07/27/2031 07/26/2021, 10/11/2018, 10/09/2010, Additional history exists ZOSTER IMMUNIZATION (1 of 2) 12/09/2047 HEPATITIS B IMMUNIZATION Completed 999, 02/20/1998, 1997 HPV IMMUNIZATION Completed 06/08/2012, 08/2011, 11/13/2011 MENINGITIS IMMUNIZATION Aged Out 12/07/2012 No l onger eligible based on patient's age to complete this topic CHLAMYDIA SCREENING Discontinued 05/06/2018, 10/18/2017, 06/19/2017, Additional history exists HEPATITIS C SCREENING Completed 10/24/2020 , 06/19/2017, 02/19/2016 HIV SCREENING Completed 10/24/2020, 05/15, 06/19/2017, Additional history exists Pneumococcal Vaccine: Pediatrics (0 to 5 Years) and At-Risk Patients (6 to 49 Years) Aged Out No longer eligible based [...] THIN LAYER SCREEN Routine 01/27/2019 9:50 AM EMERGENCY DETAIL DRIVER Screening for cervical cancer Routine follow-up CHLAMYDIA TRACHOMATIS PCR STAT 10/18/2017 4:50 PM CDT Abdominal pain, left lower quadrant from Last 3 Months or Most Recently Relevant to Health Maintenance Results * HIV Antigen Antibody Combo (10/24/2020 1:14 PM CDT) Pathologist [facility] HIV Antigen Antibody Combo Nonreactive Nonreactive 10/25/2020 11:19 AM CDT [facility] Comment:HIV-1 p24 Ag & HIV-1 /HIV-2 Ab Not Detected Blood STRUCTURE OF RIGHT UPPER LIMB / Unknown Venipuncture / Unknown 10/24/2020 1:14 PM CDT 10/24/2020 1:15 PM CDT Nicolasa Sapp MD LAB - BLOOD ORDERABLES Fi nal Result [facility] Specialty Core Lab [address] [facility], [address] [address], [facility] [phone] * Hepatitis C antibody (10/24/2020 1:14 PM CDT) Pathologist [facility] Hepatitis C Antibody Nonreactive Nonreactive 10/25/2020 11:19 AM CDT [facility] Blood STRUCTURE OF RIGHT UPPER LIMB / Unknown Venipuncture / Unknown 10/24/2020 1:14 PM CDT 10/24/2020 1:15 PM CDT Narrative [facility] - 10/25/2020 11:19 AM CDT Assay performance characteristics have not been established for newborns, infants, and children. Nicolasa Sapp MD LAB - BLOOD ORDERABLES Fi nal Result [facility] Specialty Core Lab [address] [facility], [address] [address], [facility] [phone] * Pap imaged thin layer screen only - recommended age 21 - 24 years (01/27/2019 9:50 AM EMERGENCY DETAIL DRIVER) PAP NIL COPATH Copath Report Patient Name: JOVANY DELAROSA MR#: [id number] Specimen #: [id number] Collected: 01/27/2019 Received: 01/28/2019 Reported: 02/02/2019 10:22 Ordering Phy(s): YESI ESPINOZA MASTERS For improved result formatting, select 'View Enhanced Report Format' under Linked Documents section. SPECIMEN/STAIN PROCESS: Pap imaged thin layer prep screening (Surepath, FocalPoint with guided screening) Pap-Cyto x 1 SOURCE: Cervical, endocervical Pap imaged thin layer prep screening (Surepath, FocalPoint with guided screening) SPECIMEN ADEQUACY: Satisfactory for evaluation. -Transformation zone component present. CYTOLOGIC INTERPRETATION: Negative for intraepithelial lesion or malignancy Electronically signed out by: JOYCELYN Stephens (ASCP) CLINICAL HISTORY: LMP: 01/04/2019 Post-, Papanicolaou Test Limitations: Cervical cytology is a screening test with limited sensitivity; regular screening is critical for cancer prevention; Pap tests are primarily effective for the diagnosis/preventi on of squamous cell carcinoma, not adenocarcinomas or other cancers. COLLECTION SITE: Client: [facility] Location: [place] (S) The technical component of this testing was completed at the [facility], with the professional component performed at the [facility], [address] [place] [phone] ([phone]) COPATH Cytologic material (specimen) 01/27/2019 9:50 AM EMERGENCY DETAIL DRIVER 01/28/2019 9:39 AM EMERGENCY DETAIL DRIVER us Yesi Espinoza Masters DO LAB - OPTIME CLINICAL S PECIMEN Final Result COPATH * Chlamydia trachomatis PCR (10/18/2017 4:50 PM CDT) Specimen Description Vagina 10/18/2017 4:59 PM CDT [facility] Chlamydia Trachomatis PCR Negative NEG^Negat rosanne 10/19/2017 11:45 AM CDT [facility] Comment: Negative for C. trachomatis rRNA by sharepoint designer developer mediated amplification. A negative result by sharepoint designer developer mediated amplification does not preclude the presence of C. trachomatis infection because results are dependent on proper and adequate collection, absence of inhibitors, and sufficient rRNA to be detected. Specimen from vagina (specimen) 10/18/2017 4:50 PM CDT 10/18/2017 4:59 PM CDT Bk Saldana MD LAB - MICRO GENERAL ORDER SHEY Final Result [facility] [address] [address] Aleah Rocha [address] [phone] from Last 3 Months or Most Recently Relevant to Health Maintenance Insurance [employer] Care Teams Radio Program Director Relationship Specialty Start Date End Date [facility]- [address] [place] [address] [phone] PCP - General 11/01/23 Elias Kendrick MD [address] [place] [address] Neurology 11/02/23 Alis Burgess PA-C [facility] [address] [facility] [address] [place] [address] Physician Database Developer Emergency Medicine 11/02/23 Elias Kendrick MD [address] [place] [address] Assigned Neuroscience Provider 12/07/23
--- OUTSIDE RECORDS SUMMARY | 2024-05-27 19:11 | XMS_ITS | Encounter Summary ---
Author Organization [facility] Address [address] [place] [address] Care Team Providers Care Custom Furrier Name Role Phone No Ref-Primary, Physician Primary Care Provider Inga Ibarra DO Unavailable [phone] Dottie Lucas MD Unavailable + Elva Ramos APRN Unavailable [phone] Inga Ibarra DO Unavailable [phone] Nicolasa Sapp MD Unavailable [phone] [facility]- Primary Care Provider Elias Kendrick MD Unavailable [phone] Alis Burgess PA-C Unavailable [phone] Elias Kendrick MD Unavailable + [phone] Encounter Details Date Type Department Care Team (Late st Contact Info) Description 06/06/2015 Records - [facility] CONVERSION Scan, Non-Provider Social History Tobacco Use Types Packs/Day Years Used Date Smoking Tobacco: Never Alcohol Use Standard Drinks/Week Comments No 0 (1 standard drink = 0.6 oz pur e alcohol) Comments Unknown Sex and Gender Information Value [...] documented as of this encounter Care Teams Custom Furrier Relationship Specialty Start Date End Date No Ref-Primary, Physician PCP - General 02/23/14 10/31/23 [facility]- [address] [address] PCP - General 11/01/23 Inga Ibarra DO [address] [place] [address] Assigned OBGYN Provider 01/06/20 Dottie Lucas MD [address] [place] [address] Assigned OBGYN Provider 06/10/20 1 Elva Ramos APRN CN [address] [place] [address] Assigned OBGYN Provider 07/01/20 Inga Ibarra DO [address] [place] [address] Assigned OBGYN Provider 06/17/20 Nicolasa Sapp MD [address] [facility] [address] [place] [address] Assigned OBGYN Provider 11/11/20 Elias Kendrick MD [address] [place] [address] Neurology 11/02/23 Alis Burgess PA-C [facility] [address] [facility] [address] [place] [address] Physician Hand Mixer Emergency Medicine 11/02/23 Elias Kendrick MD [address] [place] [address] Assigned Neuroscience Provider 12/07/23 documented as of this encounter
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
--- OUTSIDE RECORDS SUMMARY | 2024-05-27 19:11 | XMS_ITS | Encounter Summary ---
Author Organization [facility] Address [address] [place] [address] Care Team Providers Care Senior Maintenance Technician Name Role Phone No Ref-Primary, Physician Primary Care Provider Elva Ramos APRN, CNM Unavailable [phone] Nicolasa Sapp MD Unavailable [phone] [facility]- Primary Care Provider Elias Kendrick MD Unavailable + [phone] Alis Burgess PA-C Unavailable [phone] Elias Kendrick MD Unavailable + [phone] Encounter Details Date Type Department Care Team (Late st Contact Info) Description 10/01/2020 [facility] Medical Advice [address] [id number] Nicole Garcia, CAMP ATTENDANT Social History Tobacco Use Types Packs/Day Years Used Date Smoking Tobacco: Never Smokeless Tobacco: Never Alcohol Use Standard Drinks/Week Comments No 0 (1 standard drink = 0.6 oz pur e alcohol) PHQ-2 Answer Date Recorded PHQ-2 Score 0 03/03/2019 [place] Depression Scale Answer Date Recorded [place] Depression Score 8 12/17/2018 Last EPDS Self [...] Total Score: 11 01/27/2 019 9:38 AM NEWBORN PHOTOGRAPHER documented as of this encounter Care Teams Senior Maintenance Technician Relationship Specialty Start Date End Date No Ref-Primary, Physician PCP - General 02/23/14 10/31/23 [facility]- [address], [place] [address] PCP - General 11/01/23 Elva Ramos APRN CNM [address] [address] Assigned OBGYN Provider 07/01/20 Nicolasa Sapp MD [address] [address] Assigned OBGYN Provider 11/11/20 Elias Kendrick MD [address] [place] [address] Neurology 11/02/23 Alis Burgess PA-C [facility] [address] [address] Physician Concrete Bucket [place] Emergency Medicine 11/02/23 Elias Kendrick MD [address] [place] [address] Assigned Neuroscience Provider 12/07/23 documented as of this encounter
--- OUTSIDE RECORDS SUMMARY | 2024-05-27 19:11 | XMS_ITS | Clinical Summary ---
Author Organization [facility] Address [address] [place] [address] Care Team Providers Care Epic Trainer Name Role Phone Unavailable Primary Care Provider Unavailabl e Source Comments Patient records contain information from all sites at [facility]. For routine questions regarding patient records, call [phone] during business hours, M-F 8:00 AM - 5:00 PM Central Time. Record requests for emergency care only can be directed to [phone] at any time.[facility] Allergies Active Allergy Reactions Criticality Noted Date [...] Date Recorded Dental: Regular Dentist Unknown 01/18/20 Comments No Sex and Gender Information Value Date Recorded Sex Assigned at Not on file Legal Sex Female 9:03 AM CDT Gender Identity Not on file Sexual Orientation Not on file Last Filed Vital Signs Vital Sign Reading Time Taken Comments Blood Pressure 122/86 03/07/2023 10:33 AM WAREHOUSE FORKLIFT OPERATOR Pulse 76 03/07/2023 10:33 AM WAREHOUSE FORKLIFT OPERATOR Temperature 36.4 C (97.5 F) 03/07/2023 10:33 AM WAREHOUSE FORKLIFT OPERATOR Respiratory Rate - - Oxygen Saturation 98% 03/07/2023 10:33 AM WAREHOUSE FORKLIFT OPERATOR Inhaled Oxygen Concentration - - Weight 78.9 kg (174 lb) 01/17/2023 9:39 AM CDT Height - - Body Mass Index - - Plan of Treatment Health Maintenance Due Date Last Done Comments Cervical/Vaginal Cancer Screening 1997 HIV Screening 1997 Hepatitis B Screening 1997 Hepatitis C Screening 1997 COVID-19 Vaccine ( season) 2023 Influenza Vaccine (#1) 2023 , 12/06/2018, 05/06/2018, Additional history exists Depression Screening (Annual PHQ-2) 03/16/2024 DTaP,Tdap,and Td Vaccines (9 - Td or Tdap) 07/27/2031 07/26/2021, 10/11/2018, 10/09/2010, Additional history exists Hepatitis B Vaccines Completed 06/01/1998, 02/20/1998, 1997 IPV Vaccines Completed 09/11/2003, 11/14, 06/01/1998, Additional history exists HPV Vaccines Completed 06/08/2012, 05/15, 01/20/2012, Additional history exists Pneumococcal vaccine (0-49 years) Aged Out No longer eligible based on patient's age to complete this topic Insurance MEDICA
--- OUTSIDE RECORDS SUMMARY | 2024-05-27 19:11 | XMS_ITS | Encounter Summary ---
Author Organization [facility] Address [address] [place] [address] Care Team Providers Care Hospital Administrative Assistant Name Role Phone No Ref-Primary, Physician Primary Care Provider Inga Ibarra DO Unavailable [phone] Dottie Lucas MD Unavailable + Elva Ramos APRN Unavailable +[phone] Inga Ibarra DO Unavailable [phone] Nicolasa Sapp MD Unavailable [phone] [facility]- Primary Care Provider Elias Kendrick MD Unavailable + [phone] Alis Burgess PA-C Unavailable +[phone] Elias Kendrick MD Unavailable + [phone] Encounter Details Date Type Department Care Team (Late st Contact Info) Description 07/09/2018 [facility] [address] [address] Maryana Crawford, RN Social History [...] documented as of this encounter Care Teams Hospital Administrative Assistant Relationship Specialty Start Date End Date No Ref-Primary, Physician PCP - General 02/23/14 10/31/23 [facility]- [address], [place] [address] PCP - General 11/01/23 MastersInga, DO [address] [place] [address] Assigned OBGYN Provider 01/06/20 Dottie Lucas MD [address] [place] [address] Assigned OBGYN Provider 06/10/20 Elva Clarke APRN CN [address] [place] [address] Assigned OBGYN Provider 07/01/20 Inga Ibarra DO [address] [place] [address] Assigned OBGYN Provider 06/17/20 Nicolasa Sapp MD [address] [address] Assigned OBGYN Provider 11/11/20 Elias Kendrick MD [address] [place] [address] Neurology 11/02/23 Alis Burgess PAAndersC [facility] [address] [address] Physician Drug Abuse Program Coordinator Emergency Medicine 11/02/23 Elias Kendrick MD [address] [place] [address] Assigned Neuroscience Provider 12/07/23 documented as of this encounter
--- OUTSIDE RECORDS SUMMARY | 2024-05-27 19:11 | XMS_ITS | Encounter Summary ---
Author Organization [place] Address [address] [place] [address] Care Team Providers Care Juke Box Mechanic Name Role Phone No Ref-Primary, Physician Primary Care Provider Elva Ramos APRN Unavailable [phone] Nicolasa Sapp MD Unavailable [phone] [facility]- Primary Care Provider Elias Kendrick MD Unavailable + [phone] Alis Burgess PA-C Unavailable +[phone] Elias Kendrick MD Unavailable + [phone] Encounter Details Date Type Department Care Team (Late st Contact Info) Description 11/05/2020 [facility] [address] [place] [address] Nicolasa Sapp MD [address] [place] [address] Social History Tobacco Use Types Packs/Day Years Used Date Smoking Tobacco: Never Smokeless Tobacco: Never Alcohol Use Standard Drinks/Week Comments No 0 (1 standard drink = 0.6 oz pur e alcohol) PHQ-2 Answer Date Recorded PHQ-2 Score 1 10/16/2020 [place] Depression Scale Answer Date Recorded [place] Depression Score 8 12/17/2018 Last EPDS Self [...] Total Score: 11 01/27/ 019 9:38 AM TRANSPORTATION SERVICES REPRESENTATIVE documented as of this encounter Care Teams Juke Box Mechanic Relationship Specialty Start Date End Date No Ref-Primary, Physician PCP - General 02/23/14 10/31/23 [facility]- [address] [place] [address] PCP - General 11/01/23 Elva Ramos APRN CNM [address] [address] Assigned OBGYN Provider 07/01/20 Nicolasa Sapp MD [address] [address] Assigned OBGYN Provider 11/11/20 Elias Kenrdick MD [address] [place] [address] Neurology 11/02/23 Alis Burgess PA-C [facility] [address] [facility] [address] [place] [address] Physician Salesperson Shoes Emergency Medicine 11/02/23 Elias Kendrick MD [address] [place] [address] Assigned Neuroscience Provider 12/07/23 documented as of this encounter
[2024-05-27 19:15] VITALS: BP 145/84; PULSE 93; RESP 18; TEMP 37.1; O2SAT 96; BMI 30.5
--- NOTE | 2024-05-27 19:22 | ED.NURSE ---
This nurse let pt know that we are mandated reporters and have to call [facility] police concerning the dog bite. Pt is okay with this nurse giving the police her information. This nurse called [facility] non emergent emergency line to report the dog bite.
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
--- OUTSIDE RECORDS SUMMARY | 2024-05-27 19:54 | XMS_ITS | Encounter Summary ---
Author Organization [place] Address [address] [place] [address] Care Team Providers Care Greens Keeper Name Role Phone No Ref-Primary, Physician Primary Care Provider Elva Ramos APRN, CNM Unavailable [phone] Nicolasa Sapp MD Unavailable [phone] [facility]- Primary Care Provider Elias Kendrick MD Unavailable + [phone] Alis Burgess PA-C Unavailable [phone] Elias Kendrick MD Unavailable + [phone] Encounter Details Date Type Department Care Team (Late st Contact Info) Description 10/02/2020 [facility] [address] [phone] Nicole Garcia, GROUP INSURANCE SPECIALIST Social History Tobacco Use Types Packs/Day Years Used Date Smoking Tobacco: Never Smokeless Tobacco: Never Alcohol Use Standard Drinks/Week Comments No 0 (1 standard drink = 0.6 oz pur e alcohol) PHQ-2 Answer Date Recorded PHQ-2 Score 0 03/03/2019 [place] Depression Scale Answer Date Recorded [place] Depression Score 8 12/17/2018 Last EPDS [...] Total Score: 11 01/27/2 019 9: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 documented as of this encounter Care Teams Greens Keeper Relationship Specialty Start Date End Date No Ref-Primary, Physician PCP - General 02/23/14 10/31/23 [facility]- [address], [place] [address] PCP - General 11/01/23 Elva Ramos APRN CNM [address] [address] Assigned OBGYN Provider 07/01/20 Nicolasa Sapp MD [address] [address] Assigned OBGYN Provider 11/11/20 Elias Kendrick MD [address] [place] [address] Neurology 11/02/23 Alis Burgess PA-C [facility] [address] [address] Physician Gas Scrubber Operator Emergency Medicine 11/02/23 Elias Kendrick MD [address] [place] [address] Assigned Neuroscience Provider 12/07/23 documented as of this encounter
--- OUTSIDE RECORDS SUMMARY | 2024-05-27 19:54 | XMS_ITS | Encounter Summary ---
Author Organization [facility] Address [address] [place] [address]. [place] [address] Care Team Providers Care Gas Prover Name Role Phone No Ref-Primary, Physician Primary Care Provider Inga Ibarra DO Unavailable [phone] Dottie Lucas MD Unavailable + Elva Ramos APRN CN Unavailable [phone] Inga Ibarra DO Unavailable [phone] Nicolasa Sapp MD Unavailable [phone] [facility]- Primary Care Provider Elias Kendrick MD Unavailable + [phone] Alis Burgess PA-C Unavailable [phone] Elias Kendrick MD Unavailable + [phone] Reason for Visit * Reason Onset Date Comments Innatal insurance coverage 06/03/2018 [facility] ins coverage for Innatal testing Encounter Details Date Type Department Care Team (Late st Contact Info) Description 06/03/2018 Telephone [facility] [place] [address] [facility] [address] [place] [address] Le Maya APRN [facility] [address] [facility] 100 [place] [address] Innatal insurance coverage (questioning ins [...] Miscellaneous Notes * Telephone Encounter - Funmilayo Ramso - 06/03/2018 10:03 AM CDT FYI. No [...] later. Encouraged pt to call Carl at [facility] to explain the situation and ask [...] documented as of this encounter Care Teams Gas Prover Relationship Specialty Start Date End Date No Ref-Primary, Physician PCP - General 02/23/14 10/31/23 [facility]- [address] [place] [address] PCP - General 11/01/23 MastersInga DO [address] [place] [address] Assigned OBGYN Provider 01/06/20 Dottie Lucas MD [address] [place] [address] Assigned OBGYN Provider 06/10/20 Elva Clarke APRN CN [address] [place] [address] Assigned OBGYN Provider 07/01/20 MastersInga DO [address] [place], [place] [address] Assigned OBGYN Provider 06/17/20 Nicolasa Sapp MD [address] [place] [address] Assigned OBGYN Provider 11/11/20 Elias Kendrick MD [address] [place] [address] Neurology 11/02/23 Alis Burgess PA-C [facility] [address] [facility] [place] [address] Physician Primer And Powder Canning Leader Emergency Medicine 11/02/23 Elias Kendrick MD [address] [place] [address] Assigned Neuroscience Provider 12/07/23 documented as of this encounter
--- OUTSIDE RECORDS SUMMARY | 2024-05-27 19:54 | XMS_ITS | Encounter Summary ---
Author Organization [place] Address [address] [place] [address] Care Team Providers Care Machine Assistant Name Role Phone No Ref-Primary, Physician Primary Care Provider Elva Ramos APRN, CNM Unavailable [phone] Nicolasa Sapp MD Unavailable [phone] [facility]- Primary Care Provider Elias Kendrick MD Unavailable + [phone] Alis Burgess PA-C Unavailable [phone] Elias Kendrick MD Unavailable + [phone] Encounter Details Date Type Department Care Team (Late st Contact Info) Description 10/01/2020 [facility] Medical Advice [address] [phone] Nicloe Garcia, THOROUGHBRED HORSE FARM MANAGER Social History Tobacco Use Types Packs/Day Years Used Date Smoking Tobacco: Never Smokeless Tobacco: Never Alcohol Use Standard Drinks/Week Comments No 0 (1 standard drink = 0.6 oz pur e alcohol) PHQ-2 Answer Date Recorded PHQ-2 Score 0 03/03/2019 [place] Depression Scale Answer Date Recorded [place] Depression Score 8 12/17/2018 Last EPDS Self [...] Total Score: 11 01/27/2 019 9: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 documented as of this encounter Care Teams Machine Assistant Relationship Specialty Start Date End Date No Ref-Primary, Physician PCP - General 02/23/14 10/31/23 [facility]- [address], [place] [address] PCP - General 11/01/23 Elva Ramos APRN CNM [address] [address] Assigned OBGYN Provider 07/01/20 Nicolasa Sapp MD [address] [address] Assigned OBGYN Provider 11/11/20 Elias Kendrick MD [address] [place] [address] Neurology 11/02/23 Alis Burgess PA-C [facility] [address] [address] Physician Auditing Clerk Emergency Medicine 11/02/23 Elias Kendrick MD [address] [place] [address] Assigned Neuroscience Provider 12/07/23 documented as of this encounter
--- OUTSIDE RECORDS SUMMARY | 2024-05-27 19:54 | XMS_ITS | Encounter Summary ---
Author Organization [place] Address [address] [place] [address] Care Team Providers Care Cloud Operations Engineer Name Role Phone No Ref-Primary, Physician Primary Care Provider Elva Ramos APRN, CNM Unavailable [phone] Nicolasa Sapp MD Unavailable [phone] [facility]- Primary Care Provider Elias Kendrick MD Unavailable + [phone] Alis Burgess PA-C Unavailable [phone] Elias Kendrick MD Unavailable + [phone] Encounter Details Date Type Department Care Team (Late st Contact Info) Description 10/16/2020 [facility] Medical Advice [facility] [address] [facility] [address] [place] [phone] Nancy Howell, RN Social History Tobacco Use Types Packs/Day Years Used Date Smoking Tobacco: Never Smokeless Tobacco: Never Alcohol Use Standard Drinks/Week Comments No 0 (1 standard drink = 0.6 oz pur e alcohol) PHQ-2 Answer Date Recorded PHQ-2 Score 1 10/16/2020 [place] Depression Scale Answer Date Recorded [place] Depression Score 8 12/17/2018 Last EPDS Self [...] Total Score: 11 01/27/2 019 9: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 documented as of this encounter Care Teams Cloud Operations Engineer Relationship Specialty Start Date End Date No Ref-Primary, Physician PCP - General 02/23/14 10/31/23 [facility]- [address] [place] [address] PCP - General 11/01/23 Elva Ramos APRN CNM [address] [place] [address] Assigned OBGYN Provider 07/01/20 Nicolasa Sapp MD [address] [place] [address] Assigned OBGYN Provider 11/11/20 Elias Kendrick MD [address] [place] [address] Neurology 11/02/23 Alis Burgess PA-C [facility] [address] [place], [place] [address] Physician School Bus Technician Emergency Medicine 11/02/23 Elias Kendrick MD [address] [place] [address] Assigned Neuroscience Provider 12/07/23 documented as of this encounter
--- OUTSIDE RECORDS SUMMARY | 2024-05-27 19:54 | XMS_ITS | Encounter Summary ---
Author Organization [facility] Address [address] [place] [address] Care Team Providers Care Electrical Panel Builder Name Role Phone No Ref-Primary, Physician Primary Care Provider Inga Ibarra DO Unavailable [phone] Dottie Lucas MD Unavailable + Elva Ramos APRN Unavailable [phone] Inga Ibarra DO Unavailable [phone] Nicolasa Sapp MD Unavailable [phone] [facility]- Primary Care Provider Elias Kendrick MD Unavailable + [phone] Alis Burgess PA-C Unavailable +[phone] Elias Kendrick MD Unavailable + [phone] Encounter Details Date Type Department Care Team (Late st Contact Info) Description 07/09/2018 [facility] [address] [address] Maryana Crawford, RN Social History [...] as of this encounter Care Teams Electrical Panel Builder Relationship Specialty Start Date End Date No Ref-Primary, Physician PCP - General 02/23/14 10/31/23 [facility]- [address] [place], [place] [address] PCP - General 11/01/23 MastersInga, DO [address] [place] [address] Assigned OBGYN Provider 01/06/20 Dottie Lucas MD [address] [place] [address] Assigned OBGYN Provider 06/10/20 Elva Clarke APRN CN [address] [place] [address] Assigned OBGYN Provider 07/01/20 Inga Ibarra DO [address] [place] [address] Assigned OBGYN Provider 06/17/20 Nicolasa Sapp MD [address] [address] Assigned OBGYN Provider 11/11/20 Elias Kendrick MD [address] [place] [address] Neurology 11/02/23 Alis Burgess PAAndersC [facility] [address] [address] Physician Migratory Game Bird Biologist Emergency Medicine 11/02/23 Elias Kendrick MD [address] [place] [address] Assigned Neuroscience Provider 12/07/23 documented as of this encounter
--- OUTSIDE RECORDS SUMMARY | 2024-05-27 19:55 | XMS_ITS | Clinical Summary ---
Author Organization [place] Address [address] [place] [address] Care Team Providers Care Wealth Management Advisor Name Role Phone [facility], [facility]- Primary Care Provider Elias Kendrick MD Unavailable + [phone] Alis Burgess PA-C Unavailable [phone] Elias Kendrick MD Unavailable + [phone] Allergies Active Allergy Reactions Criticality Noted Date Comments Cat Dander 10/06/2012 Cockroach 10/06/2012 Dust Mite Extract 10/06/2012 Nuts Nausea and Vomiting,Shortness Of Breath High 10/23/2018 Other reaction(s): Dizziness Peanut (Diagnostic) Shortness Of Breath High 014 [place] Oil Shortness Of Breath High 05/06/2018 Other [...] Answer Date Recorded PHQ-2 Score 1 10/16/2020 [place] Depression Scale Answer Date Recorded [place] Depression Score 8 12/17/2018 Last EPDS Self [...] THIN LAYER SCREEN Routine 01/27/2019 9:50 AM PIPE STRIPPER Screening for cervical cancer Routine follow-up CHLAMYDIA TRACHOMATIS PCR STAT 10/18/2017 4:50 PM CDT Abdominal pain, left lower quadrant from Last 3 Months or Most Recently Relevant to Health Maintenance Results * HIV Antigen Antibody Combo (10/24/2020 1:14 PM CDT) Pathologist [facility] HIV Antigen Antibody Combo Nonreactive Nonreactive 10/25/2020 11:19 AM CDT [facility] Comment:HIV-1 p24 Ag & HIV-1 /HIV-2 Ab Not Detected Blood STRUCTURE OF RIGHT UPPER LIMB / Unknown Venipuncture / Unknown 10/24/2020 1:14 PM CDT 10/24/2020 1:15 PM CDT Nicolasa Sapp MD LAB - BLOOD ORDERABLES Fi nal Result [facility] Specialty Core Lab [address] [facility], [address] [address], [facility] [phone] * Hepatitis C antibody (10/24/2020 1:14 PM CDT) Pathologist [facility] Hepatitis C Antibody Nonreactive Nonreactive 10/25/2020 11:19 AM CDT [facility] Blood STRUCTURE OF RIGHT UPPER LIMB / Unknown Venipuncture / Unknown 10/24/2020 1:14 PM CDT 10/24/2020 1:15 PM CDT Narrative [facility] - 10/25/2020 11:19 AM CDT Assay performance characteristics have not been established for newborns, infants, and children. Nicolasa Sapp MD LAB - BLOOD ORDERABLES Fi nal Result [facility] Specialty Core Lab [address] [facility], [address] [address], [facility] [phone] * Pap imaged thin layer screen only - recommended age 21 - 24 years (01/27/2019 9:50 AM PIPE STRIPPER) PAP NIL COPATH Copath Report Patient Name: JOVANY DELAROSA MR#: [id number] Specimen #: [id number] Collected: 01/27/2019 Received: 01/28/2019 Reported: 02/02/2019 10:22 [...] adenocarcinomas or other cancers. COLLECTION SITE: Client: [facility] Location: [place] (S) The technical component of this testing was completed at the [facility] [employer] [facility], with the professional component performed at the [facility], [address] [place] [phone] ([phone]) COPATH Cytologic material (specimen) 01/27/2019 9:50 AM PIPE STRIPPER 01/28/2019 9:39 AM PIPE STRIPPER us Yesi Espinoza Masters DO LAB - OPTIME CLINICAL S PECIMEN Final Result COPATH * Chlamydia trachomatis PCR (10/18/2017 4:50 PM CDT) Specimen Description Vagina 10/18/2017 4:59 PM CDT [facility] Chlamydia Trachomatis PCR Negative NEG^Negat rosanne 10/19/2017 11:45 AM CDT [facility] Comment: Negative for C. trachomatis rRNA by extractor operator helper mediated amplification. A negative result by extractor operator helper mediated amplification does not preclude the presence of C. trachomatis infection because results are dependent on proper and adequate collection, absence of inhibitors, and sufficient rRNA to be detected. Specimen from vagina (specimen) 10/18/2017 4:50 PM CDT 10/18/2017 4:59 PM CDT Bk Saldana MD LAB - MICRO GENERAL ORDER SHEY Final Result [facility] [address] [address] Aleah Rocha [address] [phone] from Last 3 Months or Most Recently Relevant to Health Maintenance Insurance [employer] Care Teams Wealth Management Advisor Relationship Specialty Start Date End Date [facility]- [address] [place] [address] [id number] PCP - General 11/01/23 Elias Kendrick MD [address] [place] [address] Neurology 11/02/23 Alis Burgess PA-C [facility] [place] [address] [facility] [address] [place] [address] Physician Civil Design Technician Emergency Medicine 11/02/23 Elias Kendrick MD [address] [place] [address] Assigned Neuroscience Provider 12/07/23
--- OUTSIDE RECORDS SUMMARY | 2024-05-27 19:55 | XMS_ITS | Encounter Summary ---
Author Organization [place] Address [address] [place] [address] Care Team Providers Care Business Performance Specialist Name Role Phone No Ref-Primary, Physician Primary Care Provider Inga Ibarra DO Unavailable [phone] Dottie Lucas MD Unavailable + Elva Ramos APRN Unavailable [phone] Inga Ibarra DO Unavailable [phone] Nicolasa Sapp MD Unavailable [phone] [facility]- Primary Care Provider Elias Kendrick MD Unavailable [phone] Alis Burgess PA-C Unavailable [phone] Elias Kendrick MD Unavailable + [phone] Encounter Details Date Type Department Care Team [...] documented as of this encounter Care Teams Business Performance Specialist Relationship Specialty Start Date End Date No Ref-Primary, Physician PCP - General 02/23/14 10/31/23 [facility]- [address] [place] [address] PCP - General 11/01/23 Inga Ibarra DO [address] [place], [place] [address] Assigned OBGYN Provider 01/06/20 Dottie Lucas MD [address] [place], [place] [address] Assigned OBGYN Provider 06/10/20 Elva Clarke APRN [facility] [address] [place], [place] [address] Assigned OBGYN Provider 07/01/20 sInga DO [address] [place], [place] [address] Assigned OBGYN Provider 06/17/20 Nicolasa Sapp MD [address], [address] [place], [place] [address] Assigned OBGYN Provider 11/11/20 Elias Kendrick MD [address] [place] [address] Neurology 11/02/23 Alis Burgess PA-C [facility] [place] [address] [facility] [address] [place] [address] Physician Manager Battery Emergency Medicine 11/02/23 Elias Kendrick MD [address] [place] [address] Assigned Neuroscience Provider 12/07/23 documented as of this encounter
--- OUTSIDE RECORDS SUMMARY | 2024-05-27 19:55 | XMS_ITS | Clinical Summary ---
Author Organization [facility] Address [address] [place] [address] Care Team Providers Care Architectural Model Maker Name Role Phone [facility], [facility] Primary Care Provide r Allergies Active Allergy Reactions Criticality Noted Date Comments Peanut Shortness Of Breath 07/21/2013 [place] Seed Shortness Of Breath,Edema 2018 Medications vitamins-folic [...] Comments Blood Pressure 131/70 05/17/2018 8:09 PM [employer] TE[employer]ER Pulse 62 05/17/2018 8:09 PM [employer] EDUCATION TEACHER Temperature 35.9 C (96.6 F) 05/17/2018 5:54 PM [employer]UCATION TEACHER Respiratory Rate 32 05/17/2018 5:54 PM [employer] SPECIAL EDUCATION TEACHER Oxygen Saturation 98% 05/17/2018 8:09 PM [employer] SPECIAL EDUCATION TEACHER Inhaled Oxygen Concentration - - Weight 72.6 kg (160 lb) 05/17/2018 8:11 PM [employer] SPECIAL EDUCATION TEACHER Height 157.5 cm (5' 2) 05/17/2018 8:11 PM [employer] SPECIAL EDUCATION TEACHER Body Mass Index 29.26 05/17/2018 8:11 PM [employer] SPECIAL EDUCATION TEACHER Plan of Treatment Health Maintenance Due Date [...] 16 Negative Negative 11/02/2023 4:41 PM CDT [facility] TRAL LABORATORY TYPE 18 Negative Negative 11/02/2023 4:41 PM CDT [facility] TRAL LABORATORY OTHER HIGH RISK TYPES Negative Negative 11/02/2023 4:41 PM CDT [facility] Other (Cervical) 10/27/2023 2:50 PM CDT 10/28/2023 4:11 PM CDT Narrative [facility] - 11/02/2023 4:41 PM CDT HPV types 16, 18, 31, 33, 35, 39, 45, 51, 52, 56, 58, 59, 66 and 68 DNA were undetectable or below the pre-set threshold. Methodology: Marcial Zayra 4800 HPV Test us Kathleen Barba MD MICROBIOLOGY Final Resu lt [facility] [address] [place] [address], [place] from Last 3 Months or Most Recently Relevant to Health Maintenance Insurance [employer] [place] [id number] [employer] [place] [id number] Care Teams Architectural Model Maker Relationship Specialty Start Date End Date [facility], [facility] [address] [address] PCP - General 05/06/18
--- OUTSIDE RECORDS SUMMARY | 2024-05-27 19:55 | XMS_ITS | Clinical Summary ---
Author Organization [facility] Address [address] [place] [address] Care Team Providers Care School Lunch Monitor Name Role Phone Unavailable Primary Care Provider Unavailabl e Source Comments Patient records contain information from all sites at [facility]. For routine questions regarding patient records, call [phone] during business hours, M-F 8:00 AM - 5:00 PM Central Time. Record requests for emergency care only can be directed to [phone] at any time.[facility] Allergies Active Allergy Reactions Criticality Noted Date [...] Comments Blood Pressure 122/86 03/07/2023 10:33 AM CERTIFIED DENTAL ASSISTANT Pulse 76 03/07/2023 10:33 AM CERTIFIED DENTAL ASSISTANT Temperature 36.4 C (97.5 F) 03/07/2023 10:33 AM CERTIFIED DENTAL ASSISTANT Respiratory Rate - - Oxygen Saturation 98% 03/07/2023 10:33 AM CERTIFIED DENTAL ASSISTANT Inhaled Oxygen Concentration - - Weight 78.9 [...]
--- OUTSIDE RECORDS SUMMARY | 2024-05-27 19:55 | XMS_ITS | Encounter Summary ---
Author Organization [place] Address [address] [place] [address] Care Team Providers Care Shot Coat Tender Name Role Phone No Ref-Primary, Physician Primary Care Provider Inga Ibarra DO Unavailable [phone] Dottie Lucas MD Unavailable + lEva Ramos APRN Unavailable [phone] Inga Ibarra DO Unavailable [phone] Nicolasa Sapp MD Unavailable [phone] [facility]- Primary Care Provider Elias Kendrick MD Unavailable [phone] Alis Burgess PA-C Unavailable [phone] Elias Kendrick MD Unavailable + [phone] Encounter Details Date Type Department Care Team [...] documented as of this encounter Care Teams Shot Coat Tender Relationship Specialty Start Date End Date No Ref-Primary, Physician PCP - General 02/23/14 10/31/23 [facility]- [address], [place] [address] PCP - General 11/01/23 Inga Ibarra DO [address] [place] [address] Assigned OBGYN Provider 01/06/20 Dottie Lucas MD [address] [place] [address] Assigned OBGYN Provider 06/10/20 1 Elva Ramos APRN CN [address] [place] [address] Assigned OBGYN Provider 07/01/20 Inga Ibarra DO [address] [place] [address] Assigned OBGYN Provider 06/17/20 Nicolasa Sapp MD [address] [facility] [address] [place] [address] Assigned OBGYN Provider 11/11/20 Elias Kendrick MD [address] [place] [address] Neurology 11/02/23 Alis Burgess PA-C [facility] [address] [facility] [address] [place] [address] Physician Maintenance Worker Swimming Pool Emergency Medicine 11/02/23 Elias Kendrick MD [address] [place] [address] Assigned Neuroscience Provider 12/07/23 documented as of this encounter
--- OUTSIDE RECORDS SUMMARY | 2024-05-27 19:55 | XMS_ITS | Encounter Summary ---
Author Organization [place] Address [address] [place] [address] Care Team Providers Care Laborer/Key Man Name Role Phone No Ref-Primary, Physician Primary Care Provider Elva Ramos APRN Unavailable [phone] Nicolasa Sapp MD Unavailable [phone] [facility]- Primary Care Provider Elias Kendrick MD Unavailable + [phone] Alis Burgess PA-C Unavailable [phone] Elias Kendrick MD Unavailable + [phone] Encounter Details Date Type Department Care Team (Late st Contact Info) Description 11/05/2020 [facility] [address] [place] [address] Nicolasa Sapp MD [address] [place] [address] Social History Tobacco Use Types Packs/Day Years Used Date Smoking Tobacco: Never Smokeless Tobacco: Never Alcohol Use Standard Drinks/Week Comments No 0 (1 standard drink = 0.6 oz pur e alcohol) PHQ-2 Answer Date Recorded PHQ-2 Score 1 10/16/2020 [place] Depression Scale Answer Date Recorded [place] Depression Score 8 12/17/2018 Last EPDS Self [...] Operative Note - Suction D&C Patient: Ava aPrker : 1995 Date of Service: 11/05/2020 Pre-operative [...] Total Score: 11 01/27/ 019 9:38 AM PERSONALIZED LIVING MANAGER documented as of this encounter Care Teams Laborer/Key Man Relationship Specialty Start Date End Date No Ref-Primary, Physician PCP - General 02/23/14 10/31/23 [facility]- [address] [place] [address] PCP - General 11/01/23 Elva Ramos APRN CNM [address] [address] Assigned OBGYN Provider 07/01/20 Nicolasa Sapp MD [address] [address] Assigned OBGYN Provider 11/11/20 Elias Kendrick MD [address] [place] [address] Neurology 11/02/23 Alis Burgess PA-C [facility] [place] [address] [facility] [address] [place] [address] Physician Entertainment Production Professional Emergency Medicine 11/02/23 Elias Kendrick MD [address] [place] [address] Assigned Neuroscience Provider 12/07/23 documented as of this encounter
== END 2024-05-27 19:55 | disposition home or self-care (01) ==
PROVIDERS: Emergency Provider Emergency Medicine Emergency Medical Services; PCP Emergency Medicine
DX: S80.871A Other superficial bite, right lower leg, initial encounter (principal); W54.0XXA Bitten by dog, initial encounter
CPT/HCPCS: 99282; 99283; 99284

== ENCOUNTER 2024-12-05 14:13 | Outpatient (CLI) | payer OTHER, SELFPAY | END 2024-12-05 14:14 | disposition home or self-care (01) | LOC: NFLDREF 12-09 12:32 | PROVIDERS: PCP Emergency Medicine; Referring Provider Emergency Medicine; Visit Provider Family Medicine | DX: Z11.1 Encounter for screening for respiratory tuberculosis (principal) | CPT/HCPCS: 86480 ==